=== PATIENT | male | born 1945 | race Caucasian/White ===

== ENCOUNTER 2017-01-31 15:24 | Emergency (ER) | payer MEDICARE ==
[2017-01-31 15:29] VITALS: RESP 18; TEMP 97
[2017-01-31] MEDS ORDERED: SODIUM CHLORIDE 0.9% 1,000 ML IV STA (15:51)
[2017-01-31 16:21] LABS: Basophils % (A) 1 %; CH 31.7; CHCM 32.8; Eosinophils # (A) 0.3 k/uL (0-0.7); Eosinophils % (A) 4 %; HCT 45.9 % (39.0-53.0); HDW 2.11; HGB 14.9 gm/dL (13.0-17.5); Luc # (Auto) 0.18; Luc % (Auto) 2; Lymphocytes # (A) 2.6 k/uL (1.0-4.8); Lymphocytes % (A) 30 %; MCH 31.5 pg (25.0-35.0); MCHC 32.6 g/dL (31.0-37.0); MCV 96.9 fL (80.0-100.0); Mean Platelet Volume 9.5; Monocytes # (A) 0.6 k/uL (0-1.0); Monocytes % (A) 6 %; Neutrophils % (A) 58 %; RBC 4.74 m/uL (4.30-5.90); RDW 13.3 % (11.5-15.5); WBC 8.6 k/uL (3.8-10.6); WBC (Perox) 8.51
--- NOTE | 2017-01-31 16:21 | ED ---
General Adult HPI - General Chief complaint: Eye Problems Stated complaint: blurred vision/groin pain Time Seen by Provider: 01/31/17 15:36 Source: patient Mode of arrival: wheelchair Limitations: no limitations - History of Present Illness Initial comments: This 71-year-old white male presents with a complaint of some lightheadedness and blurry vision. He relates that he has had the blurry vision multiple times previously with unknown cause. He does relate that he's had some cataracts placed previously and this did help his vision. He relates that it occurred this morning. He denies any chest pain or shortness of breath. He denies any abdominal pain, fever, chills. He denies any problems with urination. No recent trauma or head injuries. No other complaints or modifying factors. - Related Data Home Medications Medication Instructions Recorded Confirmed ALPRAZolam 1 mg PO BID 07/19/16 01/31/17 Hydrocodone/Acetaminophen 1 tab PO TID PRN 07/19/16 01/31/17 [Hydrocodon-Acetaminophn 10-325] Omeprazole [PriLOSEC] 20 mg PO BID 07/19/16 01/31/17 Spironolactone 25 mg PO DAILY@199907/19/16 01/31/17 Aspirin EC [Ecotrin Low Dose] 81 mg PO DAILY 01/31/17 01/31/17 Baclofen [Lioresal] 10 mg PO BID 01/31/17 01/31/17 Cholecalciferol [Vitamin D3] 5,000 unit PO DAILY 01/31/17 01/31/17 Nitroglycerin Sl Tabs [Nitrostat] 0.4 mg SUBLINGUAL Q5M PRN 01/31/17 01/31/17 Previous Rx's Medication Instructions Recorded Atorvastatin Calcium [Lipitor] 80 mg PO HS #30 tablet 07/22/16 Losartan [Cozaar] 25 mg PO DAILY #30 tab 07/22/16 Metoprolol Tartrate [Lopressor] 25 mg PO BID #60 tab 07/22/16 Ticagrelor [Brilinta] 90 mg PO BID #60 tablet 07/22/16 Allergies Allergy/AdvReac Type Severity Reaction Status Date / Time No Known Allergies Allergy Verified 01/31/17 16:06 Review of Systems ROS Statement: Those systems with pertinent positive or pertinent negative responses have been documented in the HPI. ROS Other: All systems not noted in ROS Statement are negative. Past Medical History Past Medical History: Coronary Artery Disease (CAD), Chest Pain / Angina, Heart Failure, GERD/Reflux, Hyperlipidemia, Hypertension, Liver Disease, Osteoarthritis (OA), Pneumonia Additional Past Medical History / Comment(s): 04/02/16 UTI WITH SEPSIS, STATES HE SELF CATHS chronic back PAIN ddd, osteoporosis , PT stated he pulls his own teeth. History of Any Multi-Drug Resistant Organisms: None Reported Past Surgical History: Adenoidectomy, Heart Catheterization, Hernia Repair, Tonsillectomy Additional Past Surgical History / Comment(s): COLONOSCOPY,CATARACTS. recent heart cath -has triple vessel disease-no sx as of yet. Past Anesthesia/Blood Transfusion Reactions: No Reported Reaction Past Psychological History: No Psychological Hx Reported Additional Psychological History / Comment(s): . Smoking Status: Current every day smoker Past Alcohol Use History: Daily Additional Past Alcohol Use History / Comment(s): States has not drank much since last admission but will occasionaly when friends are over. Past Drug Use History: None Reported - Past Family History Mother Family Medical History: Myocardial Infarction ([place]) Brother(s) Family Medical History: CVA/TIA Sister(s) Family Medical History: CVA/TIA General Exam - General Exam Comments Initial Comments: GENERAL: The patient is well nourished and well hydrated. VITAL SIGNS: Heart rate, blood pressure, respiratory rate reviewed as recorded in nurse's notes. EYES: Pupils are round and reactive. Extraocular movements are intact. No conjunctival / lid redness or swelling. ENT: No external evidence of injury, swelling, or ecchymosis. Airway is patent. Throat is clear. NECK: Nontender. No swelling or evidence of injury. No subcutaneous emphysema. Trachea is midline. No thyroid mass. HEART: Regular rate and rhythm. Good peripheral pulses. LUNGS/CHEST: Breath sounds clear and equal bilaterally. No rales, rhonchi, or wheezes. No ecchymosis, subcutaneous emphysema, or tenderness. ABDOMEN: Abdomen soft without tenderness. No palpable masses or organomegaly. No peritoneal signs. No abdominal wall swelling or ecchymosis. EXTREMITIES: No extremity tenderness. Normal muscle tone and function. No thoracolumbar tenderness. NEUROLOGIC: Sensation is grossly intact. Cranial nerve exam reveals face is symmetrical, tongue is midline, speech is clear. SKIN: No abrasions or ecchymosis is noted. No induration or masses noted. PSYCHIATRIC: Alert and oriented. Appropriate behavior and judgment. Limitations: no limitations Course Vital Signs 01/31/17 01/31/17 01/31/17 15:27 15:30 15:46 Temperature 97 F L Pulse Rate 38 L 66 68 Respiratory 18 18 18 Rate Blood Pressure 124/80 141/72 O2 Sat by Pulse 100 Oximetry Medical Decision Making - Medical Decision Making The patient was seen and examined. All diagnostics were reviewed. The EKG shows a normal sinus rhythm with frequent PVCs. Heart rate is 77. There is some T-wave inversion noted in the lateral leads. There is no ST elevation identified. An IV is started and patient is mildly hydrated. The computed tomography scan of the brain shows age-related changes and atrophy but no acute process. The laboratory is reviewed and does show some hypomagnesemia as well as some slight hypercalcemia. His magnesium is replaced. Instructed that he may benefit from utilizing a multivitamin daily. Overall, he appears quite stable. It is felt that he is stable for discharge home. He is agreeable with this plan. 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 He understands and leaves in no distress. - Lab Data Result diagrams: 01/31/17 15:50 01/31/17 15:50 Lab Results 01/31/17 01/31/17 01/31/17 Range/Units 15:50 15:50 15:50 WBC 8.6 (3.8-10.6) k/uL RBC 4.74 (4.30-5.90) m/uL Hgb 14.9 (13.0-17.5) gm/dL Hct 45.9 (39.0-53.0) % MCV 96.9 (80.0-100.0) fL MCH 31.5 (25.0-35.0) pg MCHC 32.6 (31.0-37.0) g/dL RDW 13.3 (11.5-15.5) % Plt Count 232 (150-450) k/uL Neutrophils % 58 % Lymphocytes % 30 % Monocytes % 6 % Eosinophils % 4 % Basophils % 1 % Neutrophils # 5.0 (1.3-7.7) k/uL Lymphocytes # 2.6 (1.0-4.8) k/uL Monocytes # 0.6 (0-1.0) k/uL Eosinophils # 0.3 (0-0.7) k/uL Basophils # 0.0 (0-0.2) k/uL PT (9.0-12.0) sec INR (<1.1) APTT (22.0-30.0) sec Sodium 137 (137-145) mmol/L Potassium 4.5 (3.5-5.1) mmol/L Chloride 103 (98-107) mmol/L Carbon Dioxide 22 (22-30) mmol/L Anion Gap 12 mmol/L BUN 15 (9-20) mg/dL Creatinine 1.12 (0.66-1.25) mg/dL Est GFR (MDRD) Af Amer >60 (>60 ml/min/1.73 sqM) Est GFR (MDRD) Non-Af >60 (>60 ml/min/1.73 sqM) Glucose 108 H (74-99) mg/dL Calcium 10.4 H (8.4-10.2) mg/dL Phosphorus 3.8 (2.5-4.5) mg/dL Magnesium 1.3 L (1.6-2.3) mg/dL Total Bilirubin 0.9 (0.2-1.3) mg/dL AST 31 (17-59) U/L ALT 26 (21-72) U/L Alkaline Phosphatase 69 (38-126) U/L Total Creatine Kinase 88 (55-170) U/L CK-MB (CK-2) 0.8 (0.0-2.4) ng/mL CK-MB (CK-2) Rel Index 0.9 Troponin I 0.012 (0.000-0.034) ng/mL Total Protein 8.6 H (6.3-8.2) g/dL Albumin 4.8 (3.5-5.0) g/dL TSH 1.790 (0.465-4.680) mIU/L Urine Color Urine Appearance (Clear) Urine pH (5.0-8.0) Ur Specific [place] (1.001-1.035) Urine Protein (Negative) Urine Glucose (UA) (Negative) Urine Ketones (Negative) Urine Blood (Negative) Urine Nitrite (Negative) Urine Bilirubin (Negative) Urine Urobilinogen (<2.0) mg/dL Ur Leukocyte Esterase (Negative) 01/31/17 01/31/17 Range/Units 16:15 16:30 WBC (3.8-10.6) k/uL RBC (4.30-5.90) m/uL Hgb (13.0-17.5) gm/dL Hct (39.0-53.0) % MCV (80.0-100.0) fL MCH (25.0-35.0) pg MCHC (31.0-37.0) g/dL RDW (11.5-15.5) % Plt Count (150-450) k/uL Neutrophils % % Lymphocytes % % Monocytes % % Eosinophils % % Basophils % % Neutrophils # (1.3-7.7) k/uL Lymphocytes # (1.0-4.8) k/uL Monocytes # (0-1.0) k/uL Eosinophils # (0-0.7) k/uL Basophils # (0-0.2) k/uL PT 11.0 (9.0-12.0) sec INR 1.1 (<1.1) APTT 23.4 (22.0-30.0) sec Sodium (137-145) mmol/L Potassium (3.5-5.1) mmol/L Chloride (98-107) mmol/L Carbon Dioxide (22-30) mmol/L Anion Gap mmol/L BUN (9-20) mg/dL Creatinine (0.66-1.25) mg/dL Est GFR (MDRD) Af Amer (>60 ml/min/1.73 sqM) Est GFR (MDRD) Non-Af (>60 ml/min/1.73 sqM) Glucose (74-99) mg/dL Calcium (8.4-10.2) mg/dL Phosphorus (2.5-4.5) mg/dL Magnesium (1.6-2.3) mg/dL Total Bilirubin (0.2-1.3) mg/dL AST (17-59) U/L ALT (21-72) U/L Alkaline Phosphatase (38-126) U/L Total Creatine Kinase (55-170) U/L CK-MB (CK-2) (0.0-2.4) ng/mL CK-MB (CK-2) Rel Index Troponin I (0.000-0.034) ng/mL Total Protein (6.3-8.2) g/dL Albumin (3.5-5.0) g/dL TSH (0.465-4.680) mIU/L Urine Color Yellow Urine Appearance Clear (Clear) Urine pH 5.5 (5.0-8.0) Ur Specific [place] 1.010 (1.001-1.035) Urine Protein Negative (Negative) Urine Glucose (UA) Negative (Negative) Urine Ketones Negative (Negative) Urine Blood Negative (Negative) Urine Nitrite Negative (Negative) Urine Bilirubin Negative (Negative) Urine Urobilinogen <2.0 (<2.0) mg/dL Ur Leukocyte Esterase Negative (Negative) Disposition Clinical Impression: Blurry vision, bilateral, Lightheadedness, Frequent PVCs, Hypertension, Hypomagnesemia, Hypercalcemia Disposition: HOME SELF-CARE Condition: Good Instructions: Lightheadedness (ED), Hypertension (ED), Hypomagnesemia (ED), Hypercalcemia (ED) Referrals: Carlitos Pandey MD [Primary Care Provider] - 1-2 days Time of Disposition: 17:11
[2017-01-31 16:23] LABS: ALT 26 U/L (21-72); AST 31 U/L (17-59); Alkaline Phosphatase 69 U/L (38-126); Anion Gap 12 mmol/L; Blood Urea Nitrogen 15 mg/dL (9-20); Calcium 10.4 mg/dL (8.4-10.2); Carbon Dioxide 22 mmol/L (22-30); Chloride 103 mmol/L (98-107); Glucose 108 mg/dL (74-99); Magnesium 1.3 mg/dL (1.6-2.3); Non-African American GFR(MDRD) >60 (>60 ml/min/1.73 sqM); Phosphorous 3.8 mg/dL (2.5-4.5); Potassium 4.5 mmol/L (3.5-5.1); Sodium 137 mmol/L (137-145); Total Bilirubin 0.9 mg/dL (0.2-1.3); Total Protein 8.6 g/dL (6.3-8.2)
[2017-01-31 16:26] LABS: Appearance,Urine Clear (Clear); Bilirubin,Urine Negative (Negative); Glucose,Urine (UA) Negative (Negative); Ketones,Urine Negative (Negative); Leukocyte Esterase,Urine Negative (Negative); Nitrite,Urine Negative (Negative); PH, Urine 5.5 (5.0-8.0); Protein,Urine Negative (Negative); UA Billing (MACRO vs. MICRO) CHEM; Urobilinogen,Urine <2.0 mg/dL (<2.0)
--- NOTE | 2017-01-31 16:34 | CT ---
EXAMINATION TYPE: CT brain wo con DATE OF EXAM: 01/31/2017 4:26 PM HISTORY: Patient complains of dizziness and blurry vision. CT DLP: 830.1 mGycm. Automated Exposure Control for Dose Reduction was Utilized. TECHNIQUE: CT scan of the head is performed without contrast. COMPARISON: CT brain April 02, 2016.. FINDINGS: There is no acute intracranial hemorrhage or midline shift identified. There is diffuse v entricular and sulcal prominence consistent with diffuse age-related cerebral atrophy. There is low- attenuation in the periventricular white matter consistent with chronic small vessel ischemic change. Old fracture deformity medial wall left orbit is felt redemonstrated. Visualized globes are grossly intact. Visualized paranasal sinuses show mild to moderate mucosal thickening involving ethmoid sinus es bilaterally slightly more prominent than prior exam. Mild mucosal thickening involving anterior sp henoid sinuses bilaterally is present. IMPRESSION: No acute intracranial hemorrhage or midline shift. There is moderate to severe diffuse age-related cerebral atrophy and chronic small vessel ischemic change redemonstrated. No significant change from prior study is seen.
[2017-01-31 16:35] LABS: Creatine Kinase MB 0.8 ng/mL (0.0-2.4); Troponin I 0.012 ng/mL (0.000-0.034)
[2017-01-31 16:53] LABS: INR 1.1 (<1.1); Partial Thromboplastin Time 23.4 sec (22.0-30.0)
[2017-01-31] MEDS: MAGNESIUM SULFATE-D5W PMX 1 GM in DEXTROSE/WATER 1 100ML.BAG IVPB SCH ×2 (17:19→18:28)
[2017-01-31 19:35] VITALS: BP 111/78; PULSE 52
== END 2017-01-31 19:30 | disposition home or self-care (01) ==
LOC: EC 15:24
DX: H53.8 Other visual disturbances (principal); R42 Dizziness and giddiness; I49.3 Ventricular premature depolarization; E83.42 Hypomagnesemia; E83.52 Hypercalcemia; I11.0 Hypertensive heart disease with heart failure; I50.9 Heart failure, unspecified; I25.10 Atherosclerotic heart disease of native coronary artery without angina pectoris; K21.9 Gastro-esophageal reflux disease without esophagitis; E78.5 Hyperlipidemia, unspecified; F17.200 Nicotine dependence, unspecified, uncomplicated; Z95.5 Presence of coronary angioplasty implant and graft; Z79.82 Long term (current) use of aspirin; Z79.899 Other long term (current) drug therapy
CPT/HCPCS: 99284; 96365; 96366; 96361; 36415; 93005; 80053; 82550; 82553; 83735; 84100; 84443; 84484; 85025; 85610; 85730; 81003; 70450; J3475

== ENCOUNTER 2017-02-16 16:07 | Emergency (ER) | payer MEDICARE ==
[~2017-02-16 16:07] MED LIST: OXYMETAZOLINE 0.05% NASL SPRAY 15 ML ONE
[2017-02-16 16:12] VITALS: RESP 20
[2017-02-16] MEDS ORDERED: OXYMETAZOLINE 0.05% NASL SPRAY 15 ML NASAL STA (17:05)
--- NOTE | 2017-02-16 17:26 | ED ---
ENT HPI - General Chief complaint: ENT Stated complaint: NOSEBLEED Time Seen by Provider: 02/16/17 16:59 Source: patient, RN notes reviewed Mode of arrival: wheelchair Limitations: no limitations - History of Present Illness Initial comments: 71-year-old male presents to the emergency department with a chief complaint of epistaxis. Patient states this started today. Patient states that he is on Ventolin syrup. Patient states after he blew his nose started. Patient denies any history of this in the past. Patient denies any falls or injury. Patient states that his current concern because it continued to bleed so he thought that he should be seen.Patient denies any recent fever, chills, shortness of breath, chest pain, back pain, abdominal pain, nausea vomiting, numbness or tingling, dysuria or hematuria, constipation or diarrhea, headaches or visual changes, or any other current symptoms. - Related Data Home Medications Medication Instructions Recorded Confirmed ALPRAZolam 1 mg PO BID 07/19/16 02/16/17 Omeprazole [PriLOSEC] 20 mg PO BID 07/19/16 02/16/17 Spironolactone 25 mg PO DAILY@199907/19/16 02/16/17 Aspirin EC [Ecotrin Low Dose] 81 mg PO DAILY 01/31/17 02/16/17 Baclofen [Lioresal] 10 mg PO BID 01/31/17 02/16/17 Nitroglycerin Sl Tabs [Nitrostat] 0.4 mg SUBLINGUAL Q5M PRN 01/31/17 02/16/17 Multivitamins, Thera [Multivitamin 1 tab PO DAILY 02/16/17 02/16/17 (formulary)] Previous Rx's Medication Instructions Recorded Atorvastatin Calcium [Lipitor] 80 mg PO HS #30 tablet 07/22/16 Losartan [Cozaar] 25 mg PO DAILY #30 tab 07/22/16 Metoprolol Tartrate [Lopressor] 25 mg PO BID #60 tab 07/22/16 Ticagrelor [Brilinta] 90 mg PO BID #60 tablet 07/22/16 Allergies Allergy/AdvReac Type Severity Reaction Status Date / Time No Known Allergies Allergy Verified 02/16/17 17:13 Review of Systems ROS Statement: Those systems with pertinent positive or pertinent negative responses have been documented in the HPI. ROS Other: All systems not noted in ROS Statement are negative. Past Medical History Past Medical History: Coronary Artery Disease (CAD), Chest Pain / Angina, Heart Failure, GERD/Reflux, Hyperlipidemia, Hypertension, Liver Disease, Myocardial Infarction ([place]), Osteoarthritis (OA), Pneumonia Additional Past Medical History / Comment(s): 04/02/16 UTI WITH SEPSIS, STATES HE SELF CATHS chronic back PAIN ddd, osteoporosis , PT stated he pulls his own teeth. History of Any Multi-Drug Resistant Organisms: None Reported Past Surgical History: Adenoidectomy, Heart Catheterization, Hernia Repair, Tonsillectomy Additional Past Surgical History / Comment(s): COLONOSCOPY,CATARACTS. recent heart cath -has triple vessel disease-no sx as of yet. Past Anesthesia/Blood Transfusion Reactions: No Reported Reaction Past Psychological History: No Psychological Hx Reported Additional Psychological History / Comment(s): . Smoking Status: Current every day smoker Past Alcohol Use History: Daily Additional Past Alcohol Use History / Comment(s): States has not drank much since last admission but will occasionaly when friends are over. Past Drug Use History: None Reported - Past Family History Mother Family Medical History: Myocardial Infarction ([place]) Brother(s) Family Medical History: CVA/TIA Sister(s) Family Medical History: CVA/TIA General Exam Limitations: no limitations General appearance: alert, in no apparent distress Head exam: Present: atraumatic, normocephalic, normal inspection Eye exam: Present: normal appearance ENT exam: Present: other (Epistaxis noted from left naris excessive backsplash tenderness) Neck exam: Present: normal inspection. Absent: tenderness, meningismus, lymphadenopathy Respiratory exam: Present: normal lung sounds bilaterally. Absent: respiratory distress, wheezes, rales, rhonchi, stridor Cardiovascular Exam: Present: regular rate, normal rhythm, normal heart sounds. Absent: systolic murmur, diastolic murmur, rubs, gallop, clicks Neurological exam: Present: alert, oriented X3 Psychiatric exam: Present: normal affect, normal mood Skin exam: Present: warm, dry, intact, normal color. Absent: rash Course Vital Signs 02/16/17 16:09 Temperature 98.5 F Pulse Rate 94 Respiratory 20 Rate Blood Pressure 115/66 O2 Sat by Pulse 97 Oximetry Medical Decision Making - Medical Decision Making 71-year-old male presents emergency 5 chief complaint epistaxis. This time patient had Afrin and nasal clip placed. This time patient's epistaxis has resolved with this intervention. This time we discussed retirement. We discussed return parameters and follow-up. We discussed all patient's questions. He stated he understood and irrigated plan. They will be just discharged home. Disposition Clinical Impression: Anterior epistaxis Disposition: HOME SELF-CARE Condition: Stable Instructions: Nosebleed (ED) Additional Instructions: Please use medication as discussed. Please follow up with family doctor if symptoms have not improved over the next two days. Please return to the emergency room if your symptoms increase or worsen or for any other concerns. Referrals: Carlitos Pandey MD [Primary Care Provider] - 1-2 days Time of Disposition: 18:11
[2017-02-16 18:19] VITALS: BP 106/56; PULSE 82; TEMP 98.2
== END 2017-02-16 18:20 | disposition home or self-care (01) ==
LOC: EC 16:07
DX: R04.0 Epistaxis (principal); I50.9 Heart failure, unspecified; K21.9 Gastro-esophageal reflux disease without esophagitis; I10 Essential (primary) hypertension; M19.90 Unspecified osteoarthritis, unspecified site; F17.200 Nicotine dependence, unspecified, uncomplicated; Z79.82 Long term (current) use of aspirin; Z79.899 Other long term (current) drug therapy; Z95.818 Presence of other cardiac implants and grafts
CPT/HCPCS: 99283

== ENCOUNTER 2019-08-07 22:59 | Emergency (ER) | payer MEDICARE ==
[2019-08-07 23:06] VITALS: BP 110/69; PULSE 60; RESP 18; TEMP 96.3
--- NOTE | 2019-08-07 23:29 | ED ---
General Adult HPI - General Chief complaint: Urogenital Stated complaint: painful urination Time Seen by Provider: 08/07/19 23:11 Source: patient Mode of arrival: ambulatory Limitations: no limitations - History of Present Illness Initial comments: Patient is a 73-year-old male presenting to the emergency department with a chief complaint of burning with urination. Patient reports he developed dysuria several days ago. Patient reports that he self caths whenever he is unable to urinate. Patient reports he does have hesitancy when urinating. Patient reports that he is able to urinate in a sitting position but not in a standing position. Patient is unaware of his last prostate exam. Patient reports that his primary care most likely checked his PSA level but he is unaware of it. Patient denies any night sweats, fevers or chills. Patient denies any abdominal or back pain. Patient denies any bowel symptoms. Patient has hematuria, hemato chezia or melena. - Related Data Home Medications Medication Instructions Recorded Confirmed ALPRAZolam 1 mg PO BID 07/19/16 02/16/17 Omeprazole [PriLOSEC] 20 mg PO BID 07/19/16 02/16/17 Spironolactone 25 mg PO DAILY@199907/19/16 02/16/17 Aspirin EC [Ecotrin Low Dose] 81 mg PO DAILY 01/31/17 02/16/17 Baclofen [Lioresal] 10 mg PO BID 01/31/17 02/16/17 Nitroglycerin Sl Tabs [Nitrostat] 0.4 mg SUBLINGUAL Q5M PRN 01/31/17 02/16/17 Multivitamins, Thera [Multivitamin 1 tab PO DAILY 02/16/17 02/16/17 (formulary)] Previous Rx's Medication Instructions Recorded Atorvastatin Calcium [Lipitor] 80 mg PO HS #30 tablet 07/22/16 Losartan [Cozaar] 25 mg PO DAILY #30 tab 07/22/16 Metoprolol Tartrate [Lopressor] 25 mg PO BID #60 tab 07/22/16 Ticagrelor [Brilinta] 90 mg PO BID #60 tablet 07/22/16 Sulfamethox-Tmp 800-160Mg [Bactrim 1 each PO Q12HR #56 tab 08/08/19 Ds] Allergies Allergy/AdvReac Type Severity Reaction Status Date / Time No Known Allergies Allergy Verified 08/07/19 23:00 Review of Systems ROS Statement: Those systems with pertinent positive or pertinent negative responses have been documented in the HPI. ROS Other: All systems not noted in ROS Statement are negative. Past Medical History Past Medical History: Coronary Artery Disease (CAD), Chest Pain / Angina, Heart Failure, GERD/Reflux, Hyperlipidemia, Hypertension, Liver Disease, Myocardial Infarction ([place]), Osteoarthritis (OA), Pneumonia Additional Past Medical History / Comment(s): 04/02/16 UTI WITH SEPSIS, STATES HE SELF CATHS chronic back PAIN ddd, osteoporosis , PT stated he pulls his own teeth. History of Any Multi-Drug Resistant Organisms: None Reported Past Surgical History: Adenoidectomy, Heart Catheterization, Hernia Repair, Tonsillectomy Additional Past Surgical History / Comment(s): COLONOSCOPY,CATARACTS. recent heart cath -has triple vessel disease-no sx as of yet. Past Anesthesia/Blood Transfusion Reactions: No Reported Reaction Past Psychological History: No Psychological Hx Reported Smoking Status: Current every day smoker Past Alcohol Use History: Daily Past Drug Use History: None Reported - Past Family History Mother Family Medical History: Myocardial Infarction ([place]) Brother(s) Family Medical History: CVA/TIA Sister(s) Family Medical History: CVA/TIA General Exam Limitations: no limitations General appearance: alert, in no apparent distress Head exam: Present: atraumatic, normocephalic, normal inspection Eye exam: Present: normal appearance Pupils: Present: normal accommodation ENT exam: Present: normal exam, mucous membranes moist, normal external ear exam Neck exam: Present: normal inspection, full ROM Respiratory exam: Present: normal lung sounds bilaterally Cardiovascular Exam: Present: regular rate, normal rhythm, normal heart sounds GI/Abdominal exam: Present: soft. Absent: tenderness, guarding, rebound, rigid Rectal exam: Present: normal rectal tone, hemorrhoids (External hemorrhoid), prostate tenderness (Mild tenderness) exam: Present: normal inspection, urethral discharge. Absent: testicular tenderness, scrotal swelling, vertical testicular lie, circumcision Extremities exam: Present: normal inspection, full ROM Back exam: Present: normal inspection, full ROM. Absent: CVA tenderness (R), CVA tenderness (L) Neurological exam: Present: alert, oriented X3 Psychiatric exam: Present: normal affect, normal mood Skin exam: Present: warm, intact, normal color Course Vital Signs 08/07/19 23:00 Temperature 96.3 F L Pulse Rate 60 Respiratory 18 Rate Blood Pressure 110/69 O2 Sat by Pulse 93 L Oximetry Medical Decision Making - Medical Decision Making Patient is 73-year-old male presenting to emergency Department with a chief complaint of dysuria. Apparently the patient has been self cathing intermittently whenever he has obstructive urinary symptoms. Patient reports these with urination in sitting position that seems to be elevated a standing position. Patient was given a catheter and he attempted to cath himself however it appears the catheter was too large. Palomares catheter was inserted. There appears to be some gross hematuria which is most likely a result of the failed cathing attempt or the larger catheter. UA is indicative of elevated red blood cells and white blood cells with leukocyte esterase. Prostate exam was performed the patient appears to have very mild tenderness with palpation of the prostate. Patient also appears to have an external hemorrhoid. Patient will be treated for UTI and possible prostatitis. Palomares will be in place until patient sees a urologist. Patient advised to see a urologist. Patient given a single dose of Rocephin, fluids in 30 days of Bactrim. Strict return parameters were thoroughly discussed with patient was worsening and agreeable. Case discussed physician. - Lab Data Lab Results 08/08/19 Range/Units 00:02 Urine Color Light Red Urine Appearance Cloudy (Clear) Urine pH 6.0 (5.0-8.0) Ur Specific [place] 1.013 (1.001-1.035) Urine Protein 1+ H (Negative) Urine Glucose (UA) Negative (Negative) Urine Ketones Negative (Negative) Urine Blood Moderate H (Negative) Urine Nitrite Negative (Negative) Urine Bilirubin Negative (Negative) Urine Urobilinogen <2.0 (<2.0) mg/dL Ur Leukocyte Esterase Large H (Negative) Urine RBC >182 H (0-5) /hpf Urine WBC >182 H (0-5) /hpf Disposition Clinical Impression: Urinary tract infection in male, Prostatitis Disposition: HOME SELF-CARE Condition: Stable Additional Instructions: Please take prescribed medication as directed. Please follow up with urology. Please return to emergency department if symptoms worsen. Prescriptions: Sulfamethox-Tmp 800-160Mg [Bactrim Ds] 1 each PO Q12HR #56 tab Is patient prescribed a controlled substance at d/c from ED?: No Referrals: Carlitos Pandey MD [Primary Care Provider] - 1-2 days Donald Ledezma MD [STAFF PHYSICIAN] - 1-2 days Time of Disposition: 00:42
[2019-08-08 00:29] LABS: Appearance,Urine Cloudy (Clear); Bilirubin,Urine Negative (Negative); Blood,Urine Moderate (Negative); Color,Urine Light Red; Glucose,Urine (UA) Negative (Negative); Ketones,Urine Negative (Negative); Leukocyte Esterase,Urine Large (Negative); Nitrite,Urine Negative (Negative); Protein,Urine 1+ (Negative); RBC,Urine >182 /hpf (0-5); Specific Gravity,Urine 1.013 (1.001-1.035); Urobilinogen,Urine <2.0 mg/dL (<2.0)
[2019-08-08] MEDS ORDERED: cefTRIAXone 1,000 MG VIAL (IM USE) IM STA (00:41)
== END 2019-08-08 01:16 | disposition home or self-care (01) ==
LOC: EC 22:59
DX: N41.9 Inflammatory disease of prostate, unspecified (principal); N39.0 Urinary tract infection, site not specified; K64.4 Residual hemorrhoidal skin tags; R36.9 Urethral discharge, unspecified; K21.9 Gastro-esophageal reflux disease without esophagitis; I25.119 Atherosclerotic heart disease of native coronary artery with unspecified angina pectoris; I11.0 Hypertensive heart disease with heart failure; I50.9 Heart failure, unspecified; E78.5 Hyperlipidemia, unspecified; I25.2 Old myocardial infarction; M19.90 Unspecified osteoarthritis, unspecified site; M81.0 Age-related osteoporosis without current pathological fracture; Z79.82 Long term (current) use of aspirin; Z79.899 Other long term (current) drug therapy; Z95.5 Presence of coronary angioplasty implant and graft
CPT/HCPCS: 81001; 87086; 96372; 99283; 51702; J0696

== ENCOUNTER 2019-10-30 16:02 | Inpatient (IN) | payer MEDICARE ==
[2019-10-30] MEDS ORDERED: methylPREDNISolone SOD SUCCI 125 MG/2 ML VIAL IV STA (16:40)
[2019-10-30] MEDS ORDERED: SODIUM CHLORIDE 0.9% 500 ML 500 ML IV STA (16:40)
[2019-10-30] MEDS ORDERED: ALBUTEROL NEBULIZED 2.5 MG/3 ML INHALATION STA (16:40)
[2019-10-30] MEDS ORDERED: IPRATROPIUM 0.5 MG/2.5 ML NEBU INHALATION STA (16:40)
--- NOTE | 2019-10-30 17:09 | ED ---
General Adult HPI - General Stated complaint: near syncope Time Seen by Provider: 10/30/19 16:05 Source: patient, RN notes reviewed, old records reviewed Mode of arrival: ambulatory Limitations: no limitations - History of Present Illness Initial comments: 74-year-old male presenting for evaluation of cough, dyspnea, abdominal pain. Patient's has multiple complaints he states he's had a mildly productive cough for several weeks. No fevers. He associates some left-sided chest pain with his cough. He is a current smoker and has a history of COPD. Patient also complains of some abdominal pain and bloating which is been present for several weeks also. He's had no vomiting. No diarrhea. He complains of dysuria. He also complains of multiple bites and states he does have bedbugs at home. Patient denying any chest pain at the time my evaluation. Stating that the c hest pain was approximately one week ago. - Related Data Home Medications Medication Instructions Recorded Confirmed ALPRAZolam 1 mg PO BID 07/19/16 02/16/17 Omeprazole [PriLOSEC] 20 mg PO BID 07/19/16 02/16/17 Spironolactone 25 mg PO DAILY@199907/19/16 02/16/17 Aspirin EC [Ecotrin Low Dose] 81 mg PO DAILY 01/31/17 02/16/17 Baclofen [Lioresal] 10 mg PO BID 01/31/17 02/16/17 Nitroglycerin Sl Tabs [Nitrostat] 0.4 mg SUBLINGUAL Q5M PRN 01/31/17 02/16/17 Multivitamins, Thera [Multivitamin 1 tab PO DAILY 02/16/17 02/16/17 (formulary)] Previous Rx's Medication Instructions Recorded Atorvastatin Calcium [Lipitor] 80 mg PO HS #30 tablet 07/22/16 Losartan [Cozaar] 25 mg PO DAILY #30 tab 07/22/16 Metoprolol Tartrate [Lopressor] 25 mg PO BID #60 tab 07/22/16 Ticagrelor [Brilinta] 90 mg PO BID #60 tablet 07/22/16 Sulfamethox-Tmp 800-160Mg [Bactrim 1 each PO Q12HR #56 tab 08/08/19 Ds] Allergies Allergy/AdvReac Type Severity Reaction Status Date / Time No Known Allergies Allergy Verified 08/07/19 23:00 Review of Systems ROS Statement: Those systems with pertinent positive or pertinent negative responses have been documented in the HPI. ROS Other: All systems not noted in ROS Statement are negative. Past Medical History Past Medical History: Coronary Artery Disease (CAD), Chest Pain / Angina, Heart Failure, GERD/Reflux, Hyperlipidemia, Hypertension, Liver Disease, Myocardial Infarction (CT), Osteoarthritis (OA), Pneumonia Additional Past Medical History / Comment(s): 04/02/16 UTI WITH SEPSIS, STATES HE SELF CATHS chronic back PAIN ddd, osteoporosis , PT stated he pulls his own teeth. History of Any Multi-Drug Resistant Organisms: None Reported Past Surgical History: Adenoidectomy, Heart Catheterization, Hernia Repair, Tonsillectomy Additional Past Surgical History / Comment(s): COLONOSCOPY,CATARACTS. recent heart cath -has triple vessel disease-no sx as of yet. Past Anesthesia/Blood Transfusion Reactions: No Reported Reaction Past Psychological History: No Psychological Hx Reported Smoking Status: Current every day smoker Past Alcohol Use History: None Reported, Daily Past Drug Use History: None Reported - Past Family History Mother Family Medical History: Myocardial Infarction (CT) Brother(s) Family Medical History: CVA/TIA Sister(s) Family Medical History: CVA/TIA General Exam Limitations: no limitations General appearance: alert, in no apparent distress Head exam: Present: atraumatic, normocephalic Eye exam: Present: normal appearance, PERRL ENT exam: Present: normal exam, mucous membranes moist Neck exam: Present: normal inspection. Absent: tenderness Respiratory exam: Present: wheezes, rhonchi, decreased breath sounds. Absent: respiratory distress Cardiovascular Exam: Present: regular rate, normal rhythm GI/Abdominal exam: Present: soft. Absent: distended, tenderness, guarding Extremities exam: Present: normal inspection, normal capillary refill. Absent: pedal edema Neurological exam: Present: alert, oriented X3, CN II-XII intact. Absent: motor sensory deficit Psychiatric exam: Present: normal affect, normal mood Skin exam: Present: warm, dry Course Vital Signs 10/30/19 16:46 Pulse Rate 89 Respiratory 18 Rate Blood Pressure 137/89 O2 Sat by Pulse 95 Oximetry EKG Findings - EKG Comments: EKG Findings:: EKG: Sinus rhythm with PVC left axis deviation, no ST segment elevation, rate of 79, MA interval 200, QRS duration 116, QTC 444 Medical Decision Making - Medical Decision Making 74-year-old male presenting with cough, dyspnea, abdominal pain, and episode of chest pain from one week ago. Workup is initiated, patient has EKG showing sinus rhythm with no ST segment elevation. He has normal white blood cell count, hemoglobin 12.4. He has x-ray which is negative for any acute intra- abdominal pathology, chest x-ray showing increased cardiomegaly. Echo will be obtained. He has an increased BUN and creatinine with creatinine 2.1 from baseline of 1.2. He has a lactic acid of 3.2. He does admit to poor oral intake over the past several days. He has a magnesium 1.2 which is replaced. He has a troponin elevation is 0.071 with no active ongoing chest pain. Patient's is heparinized awaiting serial troponins and cardiology consultation. Will be given continuous IV hydration for acute kidney injury. His mag is replaced. Case is discussed with Dr. Huerta will accept admission. - Lab Data Result diagrams: 10/30/19 17:02 10/30/19 17:02 Lab Results 10/30/19 10/30/19 10/30/19 Range/Units 17:02 17:02 17:02 WBC 8.0 (3.8-10.6) k/uL RBC 4.11 L (4.30-5.90) m/uL Hgb 12.4 L (13.0-17.5) gm/dL Hct 38.3 L (39.0-53.0) % MCV 93.1 (80.0-100.0) fL MCH 30.1 (25.0-35.0) pg MCHC 32.3 (31.0-37.0) g/dL RDW 13.0 (11.5-15.5) % Plt Count 297 (150-450) k/uL Neutrophils % 67 % Lymphocytes % 23 % Monocytes % 4 % Eosinophils % 3 % Basophils % 1 % Neutrophils # 5.4 (1.3-7.7) k/uL Lymphocytes # 1.9 (1.0-4.8) k/uL Monocytes # 0.3 (0-1.0) k/uL Eosinophils # 0.2 (0-0.7) k/uL Basophils # 0.1 (0-0.2) k/uL Hypochromasia Slight PT (9.0-12.0) sec INR (<1.2) APTT (22.0-30.0) sec Sodium 142 (137-145) mmol/L Potassium 4.6 (3.5-5.1) mmol/L Chloride 109 H (98-107) mmol/L Carbon Dioxide 19 L (22-30) mmol/L Anion Gap 14 mmol/L BUN 34 H (9-20) mg/dL Creatinine 2.11 H (0.66-1.25) mg/dL Est GFR (CKD-EPI)AfAm 34 (>60 ml/min/1.73 sqM) Est GFR (CKD-EPI)NonAf 30 (>60 ml/min/1.73 sqM) Glucose 130 H (74-99) mg/dL Plasma Lactic Acid Alexey 3.2 H* (0.7-2.0) mmol/L Calcium 9.4 (8.4-10.2) mg/dL Magnesium 1.2 L (1.6-2.3) mg/dL Total Bilirubin 0.9 (0.2-1.3) mg/dL AST 33 (17-59) U/L ALT 18 (4-49) U/L Alkaline Phosphatase 99 (38-126) U/L Troponin I (0.000-0.034) ng/mL Total Protein 8.2 (6.3-8.2) g/dL Albumin 4.4 (3.5-5.0) g/dL 10/30/19 10/30/19 Range/Units 17:02 17:02 WBC (3.8-10.6) k/uL RBC (4.30-5.90) m/uL Hgb (13.0-17.5) gm/dL Hct (39.0-53.0) % MCV (80.0-100.0) fL MCH (25.0-35.0) pg MCHC (31.0-37.0) g/dL RDW (11.5-15.5) % Plt Count (150-450) k/uL Neutrophils % % Lymphocytes % % Monocytes % % Eosinophils % % Basophils % % Neutrophils # (1.3-7.7) k/uL Lymphocytes # (1.0-4.8) k/uL Monocytes # (0-1.0) k/uL Eosinophils # (0-0.7) k/uL Basophils # (0-0.2) k/uL Hypochromasia PT 12.1 H (9.0-12.0) sec INR 1.2 H (<1.2) APTT 23.2 (22.0-30.0) sec Sodium (137-145) mmol/L Potassium (3.5-5.1) mmol/L Chloride (98-107) mmol/L Carbon Dioxide (22-30) mmol/L Anion Gap mmol/L BUN (9-20) mg/dL Creatinine (0.66-1.25) mg/dL Est GFR (CKD-EPI)AfAm (>60 ml/min/1.73 sqM) Est GFR (CKD-EPI)NonAf (>60 ml/min/1.73 sqM) Glucose (74-99) mg/dL Plasma Lactic Acid Alexey (0.7-2.0) mmol/L Calcium (8.4-10.2) mg/dL Magnesium (1.6-2.3) mg/dL Total Bilirubin (0.2-1.3) mg/dL AST (17-59) U/L ALT (4-49) U/L Alkaline Phosphatase (38-126) U/L Troponin I 0.071 H* (0.000-0.034) ng/mL Total Protein (6.3-8.2) g/dL Albumin (3.5-5.0) g/dL Disposition Clinical Impression: Chest pain, Ischemic cardiomyopathy, [place] (acute kidney injury), Hypomagnesemia Disposition: ADMITTED IP TO THIS HOSP Condition: Stable Is patient prescribed a controlled substance at d/c from ED?: No Referrals: Carlitos Pandey MD [Primary Care Provider] - 1-2 days Decision to Admit Reason: Admit from EC Decision Date: 10/30/19 Decision Time: 19:05
[2019-10-30 17:14] LABS: Basophils # (A) 0.1 k/uL (0-0.2); Basophils % (A) 1 %; Eosinophils # (A) 0.2 k/uL (0-0.7); Eosinophils % (A) 3 %; HCT 38.3 % (39.0-53.0); HGB 12.4 gm/dL (13.0-17.5); Hypochromasia Slight; Lymphocytes # (A) 1.9 k/uL (1.0-4.8); Lymphocytes % (A) 23 %; MCH 30.1 pg (25.0-35.0); MCHC 32.3 g/dL (31.0-37.0); MCV 93.1 fL (80.0-100.0); Mean Platelet Volume 8.6; Monocytes # (A) 0.3 k/uL (0-1.0); Monocytes % (A) 4 %; Neutrophils # (A) 5.4 k/uL (1.3-7.7); Neutrophils % (A) 67 %; Platelet Count 297 k/uL (150-450); RBC 4.11 m/uL (4.30-5.90)
[2019-10-30 17:24] LABS: Albumin 4.4 g/dL (3.5-5.0); Calcium 9.4 mg/dL (8.4-10.2); Magnesium 1.2 mg/dL (1.6-2.3); Potassium 4.6 mmol/L (3.5-5.1); Total Bilirubin 0.9 mg/dL (0.2-1.3); Total Protein 8.2 g/dL (6.3-8.2)
[2019-10-30] MEDS ORDERED: SODIUM CHLORIDE 0.9% 500 ML 500 ML IV ONE (17:27)
[2019-10-30 17:52] LABS: INR 1.2 (<1.2); Partial Thromboplastin Time 23.2 sec (22.0-30.0); Prothrombin Time 12.1 sec (9.0-12.0)
[2019-10-30] MEDS ORDERED: ASPIRIN 325 MG TAB PO STA (17:52)
--- NOTE | 2019-10-30 17:53 | XR ---
EXAMINATION TYPE: XR KUB DATE OF EXAM: 10/30/2019 COMPARISON: 06/20/2015 HISTORY: Weakness TECHNIQUE: 2 views upright FINDINGS: There is no sign of intestinal obstruction or pneumoperitoneum. Fecal pattern is normal. He art is enlarged. There are no pathologic calcifications over the kidneys. IMPRESSION: Nonacute abdomen. Cardiomegaly. Heart appears increased compared to old exam.
--- NOTE | 2019-10-30 17:55 | XR ---
EXAMINATION TYPE: XR chest 2V DATE OF EXAM: 10/30/2019 COMPARISON: 07/19/2016 HISTORY: Difficulty breathing TECHNIQUE: FINDINGS: Heart is borderline enlarged. There is no heart failure. Costophrenic angles are clear. Tho racic aorta is atheromatous. There is slight blunting of the posterior costophrenic angles. IMPRESSION: Minimal pleural reaction or fluid at the lung bases. Heart appears increased compared to old exam. There is no obvious heart failure.
[2019-10-30] MEDS ORDERED: HEPARIN SODIUM,PORCINE 5,000 UNIT/ML 1 ML VIAL IV ONE (18:53)
[2019-10-30] MEDS ORDERED: HEPARIN SODIUM,PORCINE 5,000 UNIT/ML 1 ML VIAL IV PRN (18:53)
[2019-10-30] MEDS ORDERED: NALOXONE 0.4 MG/ML 1 ML VIAL IV PRN (18:55)
[2019-10-30] MEDS: MAGNESIUM SULFATE-D5W PMX 1 GM in DEXTROSE/WATER 1 100ML.BAG IVPB SCH ×2 (19:21→20:04)
[2019-10-30 20:00] LABS: Appearance,Urine Clear (Clear); Bilirubin,Urine Negative (Negative); Blood,Urine Negative (Negative); Color,Urine Yellow; Glucose,Urine (UA) Negative (Negative); Hyaline Casts,Urine 13 /lpf (0-2); Ketones,Urine 1+ (Negative); Leukocyte Esterase,Urine Moderate (Negative); Nitrite,Urine Negative (Negative); PH, Urine 5.5 (5.0-8.0); Protein,Urine Trace (Negative); RBC,Urine 1 /hpf (0-5); Urobilinogen,Urine <2.0 mg/dL (<2.0); WBC,Urine 24 /hpf (0-5)
[2019-10-30] MEDS: HEPARIN SOD,PORK IN 0.45% NACL 25,000 UNIT in 0.45% NACL 1 250ML.BAG IV SCH (20:05)
[2019-10-30] MEDS: SODIUM CHLORIDE 0.9% 1,000 ML IV SCH (20:07)
[2019-10-30] MEDS ORDERED: NITROGLYCERIN SL TABS 0.4 MG TAB SUBLINGUAL PRN (21:16)
[2019-10-30] MEDS ORDERED: BACLOFEN 10 MG TAB PO PRN (22:00)
[2019-10-30] MEDS: ALPRAZolam 1 MG TAB PO SCH (22:35)
[2019-10-31] MEDS ORDERED: LOSARTAN 25 MG TAB PO SCH (05:30)
[2019-10-31] MEDS ORDERED: SPIRONOLACTONE 25 MG TAB PO SCH (05:30)
[2019-10-31 07:00] LABS: Basophils % (A) 0 %; Eosinophils % (A) 0 %; HCT 35.3 % (39.0-53.0); HGB 11.2 gm/dL (13.0-17.5); Hypochromasia Slight; Lymphocytes # (A) 0.8 k/uL (1.0-4.8); Lymphocytes % (A) 19 %; MCH 29.6 pg (25.0-35.0); MCHC 31.7 g/dL (31.0-37.0); MCV 93.3 fL (80.0-100.0); Mean Platelet Volume 8.7; Monocytes % (A) 1 %; Neutrophils # (A) 3.1 k/uL (1.3-7.7); Neutrophils % (A) 79 %; Platelet Count 263 k/uL (150-450); RBC 3.79 m/uL (4.30-5.90); RDW 13.2 % (11.5-15.5)
[2019-10-31] MEDS: SODIUM CHLORIDE 0.9% 1,000 ML IV SCH (07:08)
[2019-10-31] MEDS: METOPROLOL TARTRATE 25 MG TAB PO SCH ×2 (07:09→17:29)
[2019-10-31] MEDS: ASPIRIN 81 MG PO SCH ×2 (07:09→17:29)
[2019-10-31] MEDS: TICAGRELOR 90 MG TAB PO SCH ×2 (07:10→17:29)
[2019-10-31] MEDS: MULTIVITAMINS, THERA 1 EACH TAB PO SCH (07:10)
[2019-10-31] MEDS: LORATADINE 10 MG TAB PO SCH (07:11)
[2019-10-31] MEDS: PANTOPRAZOLE 40 MG TABLET PO SCH ×2 (07:11→17:30)
[2019-10-31] MEDS: ALPRAZolam 1 MG TAB PO SCH (07:14)
--- NOTE | 2019-10-31 14:50 | P.HPIM ---
History of Present Illness 74-year-old that came in with multiple complaints patient doesn't give a good history patient mainly came in with abdominal pain he says diffuse abdominal pain has been going on for a few weeks and the patient will also coming of chest pain which appears to be atypical not associated with diaphoresis although patient had an episode of diaphoresis yesterday which is not related to his chest pain moderate amount of chest pain and abdominal pain. Patient says he peed air yesterday. Because of which IV obtain a CAT scan of the abdomen and pelvis without contrast as his creatinine is 2 I didn't see any obvious colovesical fistula although official read is still pending there is no seeping of Contrast into the bladder of the bladder is distended. Patient denied any dysuria denied any increased urinary frequency and the patient is also complaining of multiple bites from bedbugs. Patient chest pain is pretty vague nonspecific. Patient's EKG showing Q waves in the septal leads, cardiology was consulted patient has minimal irritation. Troponins which can be secondary to renal failure. Patient baseline creatinine around 1.2 now around 2. 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 Review of Systems REVIEW OF SYSTEMS: CONSTITUTIONAL: No fever, no malaise, no fatigue. HEENT: No recent visual problems or hearing problems. Denied any sore throat. CARDIOVASCULAR: No orthopnea, PND, no palpitations, no syncope. PULMONARY: no hemoptysis. GASTROINTESTINAL: No diarrhea, no nausea, no vomiting, no abdominal pain. NEUROLOGICAL: No headaches, no weakness, no numbness. HEMATOLOGICAL: Denies any bleeding or petechiae. GENITOURINARY: Denies any burning micturition, frequency, or urgency. MUSCULOSKELETAL/RHEUMATOLOGICAL: Denies any joint pain, swelling, or any muscle pain. ENDOCRINE: Denies any polyuria or polydipsia. The rest of the 14-point review of systems is negative. Past Medical History Past Medical History: Coronary Artery Disease (CAD), Chest Pain / Angina, Heart Failure, GERD/Reflux, Hyperlipidemia, Hypertension, Liver Disease, Myocardial Infarction ([place]), Osteoarthritis (OA), Pneumonia Additional Past Medical History / Comment(s): 04/02/16 UTI WITH SEPSIS, STATES HE SELF CATHS chronic back PAIN ddd, osteoporosis , PT stated he pulls his own teeth. History of Any Multi-Drug Resistant Organisms: None Reported Past Surgical History: Adenoidectomy, Heart Catheterization, Hernia Repair, Tonsillectomy Additional Past Surgical History / Comment(s): COLONOSCOPY,CATARACTS. recent heart cath -has triple vessel disease-no sx as of yet. Past Anesthesia/Blood Transfusion Reactions: No Reported Reaction Past Psychological History: No Psychological Hx Reported Smoking Status: Current every day smoker Past Alcohol Use History: None Reported, Daily Past Drug Use History: None Reported - Past Family History Mother Family Medical History: Myocardial Infarction ([place]) Brother(s) Family Medical History: CVA/TIA Sister(s) Family Medical History: CVA/TIA Medications and Allergies Home Medications Medication Instructions Recorded Confirmed Type ALPRAZolam 1 mg PO BID@529,172907/19/16 10/30/19 History Omeprazole [PriLOSEC] 20 mg PO BID@529,172907/19/16 10/30/19 History Spironolactone 25 mg PO DAILY@52907/19/16 10/30/19 History Aspirin EC [Ecotrin Low Dose] 162 mg PO BID@30,172901/31/17 10/30/19 History Baclofen [Lioresal] 10 mg PO BID PRN 01/31/17 10/30/19 History Nitroglycerin Sl Tabs [Nitrostat] 0.4 mg SUBLINGUAL Q5M PRN 01/31/17 10/30/19 History Multivitamins, Thera [Multivitamin 1 tab PO DAILY@52902/16/17 10/30/19 History (formulary)] Atorvastatin Calcium [Lipitor] 80 mg PO HS@172910/30/19 10/30/19 History Cetirizine HCl [Zyrtec] 10 mg PO DAILY@52910/30/19 10/30/19 History Ibuprofen [Motrin] 800 mg PO TID PRN 10/30/19 10/30/19 History Losartan [Cozaar] 25 mg PO DAILY@52910/30/19 10/30/19 History Metoprolol Tartrate [Lopressor] 25 mg PO BID@0530,1730 10/30/19 10/30/19 History Ticagrelor [Brilinta] 90 mg PO BID@0530,1730 10/30/19 10/30/19 History Allergies Allergy/AdvReac Type Severity Reaction Status Date / Time No Known Allergies Allergy Verified 10/30/19 19:32 Physical Exam Vitals: Vital Signs Temp Pulse Pulse Resp BP Pulse Ox 10/31/19 11:03 87 18 107/79 98 10/31/19 09:03 94 18 129/81 97 10/31/19 08:00 97.3 F L 93 16 129/81 97 10/31/19 07:14 86 18 137/91 97 10/31/19 05:00 80 17 126/88 96 10/31/19 04:00 80 18 124/69 96 10/31/19 03:00 75 18 124/69 97 10/31/19 02:00 76 18 126/79 97 10/31/19 00:00 86 18 128/84 95 10/30/19 23:22 92 17 128/84 96 10/30/19 20:07 86 10/30/19 19:59 100 18 144/96 96 10/30/19 19:54 103 H 10/30/19 16:46 89 18 137/89 95 Intake and Output 10/30/19 10/31/19 10/31/19 22:59 06:59 14:59 Intake Total 57.563 Balance 57.563 Intake: Intake, IV Titration 57.563 Amount Heparin Sod,Pork in 0.45% 57.563 NaCl 25,000 unit In 0.45 % NaCl 1 250ml.bag @ 12 UNITS/KG/HR 7.675 mls/hr IV .Q24H [facility] Rx#: [id number] Other: Weight 63.957 kg PHYSICAL EXAMINATION: GENERAL: The patient is alert and oriented x3, not in any acute distress. Well developed, well nourished. HEENT: Pupils are round and equally reacting to light. EOMI. No scleral icterus. No conjunctival pallor. Normocephalic, atraumatic. No pharyngeal erythema. No thyromegaly. CARDIOVASCULAR: S1 and S2 present. No murmurs, rubs, or gallops. PULMONARY: Bilateral rhonchi no significant wheezing or crackles were appreciated chest x-ray was read as bibasilar infiltrates ABDOMEN: Soft, nontender, nondistended, normoactive bowel sounds. No palpable organomegaly. MUSCULOSKELETAL: No joint swelling or deformity. EXTREMITIES: No cyanosis, clubbing, or pedal edema. NEUROLOGICAL: Gross neurological examination did not reveal any focal deficits. SKIN: No rashes. Results CBC & Chem 7: 10/31/19 06:23 10/30/19 17:02 Labs: Abnormal Lab Results - Last 24 Hours (Table) 10/30/19 10/30/19 10/30/19 Range/Units 17:02 17:02 17:02 RBC 4.11 L (4.30-5.90) m/uL Hgb 12.4 L (13.0-17.5) gm/dL Hct 38.3 L (39.0-53.0) % Lymphocytes # (1.0-4.8) k/uL PT (9.0-12.0) sec INR (<1.2) APTT (22.0-30.0) sec Chloride 109 H (98-107) mmol/L Carbon Dioxide 19 L (22-30) mmol/L BUN 34 H (9-20) mg/dL Creatinine 2.11 H (0.66-1.25) mg/dL Glucose 130 H (74-99) mg/dL Plasma Lactic Acid Alexey 3.2 H* (0.7-2.0) mmol/L Magnesium 1.2 L (1.6-2.3) mg/dL Troponin I (0.000-0.034) ng/mL Urine Protein (Negative) Urine Ketones (Negative) Ur Leukocyte Esterase (Negative) Urine WBC (0-5) /hpf Hyaline Casts (0-2) /lpf 10/30/19 10/30/19 10/30/19 Range/Units 17:02 17:02 23:37 RBC (4.30-5.90) m/uL Hgb (13.0-17.5) gm/dL Hct (39.0-53.0) % Lymphocytes # (1.0-4.8) k/uL PT 12.1 H (9.0-12.0) sec INR 1.2 H (<1.2) APTT (22.0-30.0) sec Chloride (98-107) mmol/L Carbon Dioxide (22-30) mmol/L BUN (9-20) mg/dL Creatinine (0.66-1.25) mg/dL Glucose (74-99) mg/dL Plasma Lactic Acid Alexey (0.7-2.0) mmol/L Magnesium (1.6-2.3) mg/dL Troponin I 0.071 H* 0.066 H* (0.000-0.034) ng/mL Urine Protein (Negative) Urine Ketones (Negative) Ur Leukocyte Esterase (Negative) Urine WBC (0-5) /hpf Hyaline Casts (0-2) /lpf 10/30/19 10/31/19 10/31/19 Range/Units Unknown 01:15 06:23 RBC 3.79 L (4.30-5.90) m/uL Hgb 11.2 L (13.0-17.5) gm/dL Hct 35.3 L (39.0-53.0) % Lymphocytes # 0.8 L (1.0-4.8) k/uL PT (9.0-12.0) sec INR (<1.2) APTT 39.3 H (22.0-30.0) sec Chloride (98-107) mmol/L Carbon Dioxide (22-30) mmol/L BUN (9-20) mg/dL Creatinine (0.66-1.25) mg/dL Glucose (74-99) mg/dL Plasma Lactic Acid Alexey (0.7-2.0) mmol/L Magnesium (1.6-2.3) mg/dL Troponin I (0.000-0.034) ng/mL Urine Protein Trace H (Negative) Urine Ketones 1+ H (Negative) Ur Leukocyte Esterase Moderate H (Negative) Urine WBC 24 H (0-5) /hpf Hyaline Casts 13 H (0-2) /lp 10/31/19 10/31/19 10/31/19 Range/Units 06:23 06:23 13:07 RBC (4.30-5.90) m/uL Hgb (13.0-17.5) gm/dL Hct (39.0-53.0) % Lymphocytes # (1.0-4.8) k/uL PT (9.0-12.0) sec INR (<1.2) APTT 50.7 H 45.9 H (22.0-30.0) sec Chloride (98-107) mmol/L Carbon Dioxide (22-30) mmol/L BUN (9-20) mg/dL Creatinine (0.66-1.25) mg/dL Glucose (74-99) mg/dL Plasma Lactic Acid Alexey (0.7-2.0) mmol/L Magnesium (1.6-2.3) mg/dL Troponin I 0.052 H* (0.000-0.034) ng/mL Urine Protein (Negative) Urine Ketones (Negative) Ur Leukocyte Esterase (Negative) Urine WBC (0-5) /hpf Hyaline Casts (0-2) /lpf Assessment and Plan Plan: -Abdominal pain etiology is not. Patient was started on Protonix possibility of gastritis or gastroenteritis. Awaiting official report from radiology dep artment for a CAT scan of the abdomen. Does not appear to have any colovesical fistula this was a concern because of his complaints of urinating air. -Chest pain appeared to be atypical does have mildly elevated troponins and cardiology will evaluate the patient this troponin elevation can be secondary to renal failure -Acute renal failure on chronic kidney disease hold off on losartan and Motrin and the diuretics patient is only on Aldactone we'll repeat echocardiogram as patient had previous EF of around 25% for now will start him on IV fluids and repeat basic metabolic profile tomorrow -History of systolic dysfunction patient clinically does not appear to be in heart failure exacerbation although patient does have mild bilateral pleural effusions on the CAT scan of the abdomen does not have any elevated JVD and run have any BNP available patient actually appears to be mildly hypovolemic patient was started on IV fluids patient had here for further on 20% which may have improved with repeat echocardiogram -Mild elevation of troponins probably secondary to renal failure -Acute renal failure possibly a prerenal azotemia because of which are started him on IV fluids although. Etiology cannot be ruled out patient has a distended bladder, patient will be straight catheterized and will monitor for any urinary retention. -Chronic kidney disease stage II [place]-coronary artery disease #Hypertension -Gastroesophageal reflux disease
--- NOTE | 2019-10-31 15:54 | P.CRDCN ---
History of Present Illness History of present illness: This is Alexus Moore PA-C dictating a consult on this patient The patient was interviewed and examined by me as well as by Dr. Hou Case discussed with Dr. Hou and he agrees with the plan of care HPI Patient is a 74-year-old male with past medical history significant for CAD status post stenting with in-stent thrombosis, severe ischemic cardiomyopathy, hypertension, dyslipidemia, smoking. He is a patient of Dr. Diop. The patient is a somewhat poor historian and restented with multiple complaints. He states that for the few days he has been having constant severe diffuse abdominal pain with associated stabbing left-sided chest pain which sometimes radiates down the left arm. He is unable to give me details about the onset and exact duration of the symptoms. He denies any nausea or vomiting or diarrhea. He does state that yesterday he had a bowel movement, with associated pneumaturia. He also states that while he was standing in his kitchen making coffee yesterday, he suddenly felt weak in his legs and became diaphoretic, and fell and hit his head. Denies syncope. Denies any preceding palpitations. Denies fevers or chills. He was unable to tell me which event occurred first and the relation to one another. The pneumaturia really concerned him so he presented to the emergency department for further evaluation. Upon presentation to the emergency department he was afebrile, pulse was in the 80s, respirations 18, blood pressure 137/89, oxygen saturation 95% on room air. Abdominal x-ray showed no intestinal obstruction or pneumo peritoneum. Chest x-ray showed minimal pleural reaction or fluid at the lung bases. EKG shows sinus mechanism with Q waves anteriorly and inferiorly, and ST changes laterally, these changes do not appear to be new compared to prior EKG in 2017. Labs are significant for BUN 34, creatinine 2.11, abnormal troponin. Patient seen and examined in the emergency department. Continues to complain of some abdominal pain and bloating. No chest pain currently. ROS: No fevers, chills or rigors, Positive for cough no nausea, vomiting or diarrhea, Positive for pneumaturia no musculoskeletal complaints, no strokes or seizures, no skin lesions. EXAMINATION: Temperature 97.3F, pulse in the 90s, respirations 16, blood pressure in the 120s over 80s, oxygen saturation 95% on room air Patient seen and examined resting in bed, does not appear to be in any acute distress Breath sounds are rhonchorous bilaterally Heart is regular, S1 and S2 audible, no audible murmurs No elevated JVD No lower extremity edema Abdomen diffusely tender to palpation REVIEW OF LABS, ECG & MEDICAL DATA WBC 4.0, hemoglobin 11.2, platelets 236, potassium 4.6, BUN 34, creatinine 2.11 Troponin 0.052, 0.066, 0.071 Most recent echocardiogram from 2016 shows EF less than 20% IMPRESSION / ASSESSMENT: Abdominal pain associated with atypical chest pain, abdominal x-ray showing no acute process, abdominal CT pending Abnormal troponins of unclear significance in the presence of BALBINA, peaked at 0.071, no acute changes on EKG, possibly secondary to decreased renal function History of severe ischemic cardiomyopathy, EF less than 20% in 2016 CAD status post stenting and 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 Hypertension Dyslipidemia Current smoker BALBINA PLAN: Obtain 2-D echo and Doppler studies to assess cardiac structure and function Monitor telemetry for arrhythmias continue dual antiplatelet therapy, statins, and beta blockers Losartan and spironolactone on hold due to his renal function Check lipid panel and A1C Workup of multiple other complaints per primary care team Further recommendations based upon his clinical course Past Medical History Past Medical History: Coronary Artery Disease (CAD), Chest Pain / Angina, Heart Failure, GERD/Reflux, Hyperlipidemia, Hypertension, Liver Disease, Myocardial Infarction (IN), Osteoarthritis (OA), Pneumonia Additional Past Medical History / Comment(s): 04/02/16 UTI WITH SEPSIS, STATES HE SELF CATHS chronic back PAIN ddd, osteoporosis , PT stated he pulls his own teeth. Last Myocardial Infarction Date:: 2015 History of Any Multi-Drug Resistant Organisms: None Reported Past Surgical History: Adenoidectomy, Heart Catheterization, Hernia Repair, Tonsillectomy Additional Past Surgical History / Comment(s): COLONOSCOPY,CATARACTS. recent heart cath -has triple vessel disease-no sx as of yet. Past Anesthesia/Blood Transfusion Reactions: No Reported Reaction Date of Last Stent Placement:: 2015 Past Psychological History: No Psychological Hx Reported Smoking Status: Current every day smoker Past Alcohol Use History: None Reported, Daily Past Drug Use History: None Reported - Past Family History Mother Family Medical History: Myocardial Infarction (IN) Additional Family Medical History / Comment(s): Mother had a IN in her 80s and . Brother(s) Family Medical History: CVA/TIA Sister(s) Family Medical History: CVA/TIA Father Family Medical History: No Reported History Additional Family Medical History / Comment(s): Father when pt was young from a drowning. Medications and Allergies Home Medications Medication Instructions Recorded Confirmed Type ALPRAZolam 1 mg PO BID@0530,172907/19/16 10/30/19 History Omeprazole [PriLOSEC] 20 mg PO BID@30,172907/19/16 10/30/19 History Spironolactone 25 mg PO DAILY@52907/19/16 10/30/19 History Aspirin EC [Ecotrin Low Dose] 162 mg PO BID@529,172901/31/17 10/30/19 History Baclofen [Lioresal] 10 mg PO BID PRN 01/31/17 10/30/19 History Nitroglycerin Sl Tabs [Nitrostat] 0.4 mg SUBLINGUAL Q5M PRN 01/31/17 10/30/19 History Multivitamins, Thera [Multivitamin 1 tab PO DAILY@52902/16/17 10/30/19 History (formulary)] Atorvastatin Calcium [Lipitor] 80 mg PO HS@172910/30/19 10/30/19 History Cetirizine HCl [Zyrtec] 10 mg PO DAILY@52910/30/19 10/30/19 History Ibuprofen [Motrin] 800 mg PO TID PRN 10/30/19 10/30/19 History Losartan [Cozaar] 25 mg PO DAILY@52910/30/19 10/30/19 History Metoprolol Tartrate [Lopressor] 25 mg PO BID@30,172910/30/19 10/30/19 History Ticagrelor [Brilinta] 90 mg PO BID@30,172910/30/19 10/30/19 History Allergies Allergy/AdvReac Type Severity Reaction Status Date / Time No Known Allergies Allergy Verified 10/30/19 19:32 Physical Exam Vitals: Vital Signs Temp Pulse Pulse Resp BP Pulse Ox 10/31/19 12:00 100 18 10/31/19 11:03 87 18 107/79 98 01/29/20 09:03 94 18 129/81 97 10/31/19 08:00 97.3 F L 93 16 129/81 97 10/31/19 07:14 86 18 137/91 97 10/31/19 05:00 80 17 126/88 96 10/31/19 04:00 80 18 124/69 96 10/31/19 03:00 75 18 124/69 97 10/31/19 02:00 76 18 126/79 97 10/31/19 00:00 86 18 128/84 95 10/30/19 23:22 92 17 128/84 96 10/30/19 20:07 86 10/30/19 19:59 100 18 144/96 96 10/30/19 19:54 103 H 10/30/19 16:46 89 18 137/89 95 Intake and Output 10/31/19 10/31/19 10/31/19 06:59 14:59 22:59 Intake Total 57.563 Balance 57.563 Intake: Intake, IV Titration 57.563 Amount Heparin Sod,Pork in 0.45% 57.563 NaCl 25,000 unit In 0.45 % NaCl 1 250ml.bag @ 12 UNITS/KG/HR 7.675 mls/hr IV .Q24H [facility] Rx#: [id number] Other: Voiding Method Urinal # Voids 1 Weight 63.957 kg Results 10/31/19 06:23 10/30/19 17:02 Cardiac Enzymes 10/30/19 10/30/19 10/30/19 Range/Units 17:02 17:02 23:37 AST 33 (17-59) U/L Troponin I 0.071 H* 0.066 H* (0.000-0.034) ng/mL 10/31/19 Range/Units 06:23 AST (17-59) U/L Troponin I 0.052 H* (0.000-0.034) ng/mL Coagulation 10/30/19 10/31/19 10/31/19 Range/Units 17:02 01:15 06:23 PT 12.1 H (9.0-12.0) sec APTT 23.2 39.3 H 50.7 H (22.0-30.0) sec 10/31/19 Range/Units 13:07 PT (9.0-12.0) sec APTT 45.9 H (22.0-30.0) sec CBC 10/30/19 10/31/19 Range/Units 17:02 06:23 WBC 8.0 4.0 (3.8-10.6) k/uL RBC 4.11 L 3.79 L (4.30-5.90) m/uL Hgb 12.4 L 11.2 L (13.0-17.5) gm/dL Hct 38.3 L 35.3 L (39.0-53.0) % Plt Count 297 263 (150-450) k/uL Comprehensive Metabolic Panel 10/30/19 Range/Units 17:02 Sodium 142 (137-145) mmol/L Potassium 4.6 (3.5-5.1) mmol/L Chloride 109 H (98-107) mmol/L Carbon Dioxide 19 L (22-30) mmol/L BUN 34 H (9-20) mg/dL Creatinine 2.11 H (0.66-1.25) mg/dL Glucose 130 H (74-99) mg/dL Calcium 9.4 (8.4-10.2) mg/dL AST 33 (17-59) U/L ALT 18 (4-49) U/L Alkaline Phosphatase 99 (38-126) U/L Total Protein 8.2 (6.3-8.2) g/dL Albumin 4.4 (3.5-5.0) g/dL Current Medications Generic Name Dose Route Start Last Admin Trade Name Freq PRN Reason Stop Dose Admin Alprazolam 1 mg 10/31/19 10:51 Xanax PO BID@0530,1730 PRN Anxiety Aspirin 162 mg 10/31/19 05:30 10/31/19 07:09 Aspirin PO 162 mg BID@0530,1730 TI Administration Atorvastatin Calcium 80 mg 10/31/19 17:30 Lipitor PO HS@1730 TI Baclofen 10 mg 10/30/19 22:00 Lioresal PO BID PRN Muscle Spasm Heparin Sodium (Porcine) 0 unit 10/30/19 18:53 10/31/19 03:34 Heparin IV 1,575 unit PER PROTOCOL PRN Administration Low PTT Protocol Sodium Chloride 1,000 mls @ 75 mls/hr 10/30/19 17:45 10/31/19 07:08 Saline 0.9% IV 75 mls/hr .[id number] TI Administration Heparin Sodium/Sodium Chloride 250 mls @ 7.675 mls/hr 10/30/19 19:00 10/31/19 03:35 25,000 unit/ Sodium Chloride IV 14 units/kg/hr .Q24H TI 8.954 mls/hr Titration Protocol 12 UNITS/KG/HR Loratadine 10 mg 10/31/19 05:30 10/31/19 07:11 Claritin PO 10 mg DAILY@0530 TI Administration Metoprolol Tartrate 25 mg 10/31/19 05:30 10/31/19 07:09 Lopressor PO 25 mg BID@0530,1730 [facility] Administration Multivitamins 1 each 10/31/19 05:30 10/31/19 07:10 Theragran PO 1 each DAILY@0530 TI Administration Naloxone HCl 0.2 mg 10/30/19 18:55 Narcan IV Q2M PRN Opioid Reversal Nitroglycerin 0.4 mg 10/30/19 21:16 Nitrostat SUBLINGUAL Q5M PRN Chest Pain Pantoprazole Sodium 40 mg 10/31/19 05:30 10/31/19 07:11 Protonix PO 40 mg BID@0530,1730 [facility] Administration Tamsulosin HCl 0.4 mg 10/31/19 18:30 Flomax PO PC-SUPPER TI Ticagrelor 90 mg 10/31/19 05:30 10/31/19 07:10 Brilinta PO 90 mg BID@0530,1730 [facility] Administration Intake and Output 10/31/19 10/31/19 10/31/19 06:59 14:59 22:59 Intake Total 57.563 Balance 57.563 Intake: Intake, IV Titration 57.563 Amount Heparin Sod,Pork in 0.45% 57.563 NaCl 25,000 unit In 0.45 % NaCl 1 250ml.bag @ 12 UNITS/KG/HR 7.675 mls/hr IV .Q24H [facility] Rx#: [id number] Other: Voiding Method Urinal # Voids 1 Weight 63.957 kg Patient Weight 11/01/19 06:59 Weight 63.957 kg 10/31/19 06:23 10/30/19 17:02
--- NOTE | 2019-10-31 16:07 | CT ---
EXAMINATION TYPE: CT abdomen pelvis wo con DATE OF EXAM: 10/31/2019 COMPARISON: 06/04/2015 HISTORY: 69-year-old male Acute renal failure, dehydration, elevated troponin levels CT DLP: 506.7 mGycm. Automated exposure control for dose reduction was used. TECHNIQUE: Contiguous axial scanning of the abdomen and pelvis without IV contrast. Coronal and sagit jered reconstructions performed. FINDINGS: Heart upper limits of normal in size without pericardial effusion. Coronary vessel calcifications are present and unremarkable for coronary artery disease. Small right and trace left pleural effusions with adjacent atelectasis. Periportal edema within the liver suggests aggressive hydration. No abnormal gallbladder distention. Some 1.6 cm low density nodularity of the left adrenal gland could reflect underlying adrenal adenoma given attenuation of 2 Hounsfield units. Benign cortical cysts within the lower pole of the right kidney measuring up to 2.1 cm. These show mi nimal enlargement from 2015. Suspect additional cortical cyst lower pole left kidney at 1.5 cm also h aving enlarged from 2015. Bilateral perinephric stranding. Nonobstructive 3 mm left renal calculus. No hydronephrosis is seen. No dilated small bowel, free fluid, or free air. Normal appendix. Oral contrast progressed to the ileocecal valve. Only mild scattered stool. Scattere d left-sided colonic diverticulosis. No pericolonic inflammatory change seen. Marked distention of the urinary bladder nearly up to the umbilicus measuring 15.5 cm craniocaudal. P rostate gland is enlarged measuring 6.1 cm wide with impression on the posterior bladder base. Multiple pelvic phlebolith. No abnormal fluid collection in the pelvis. Multiple moderate vascular calcifications abdominal aorta and iliac arteries. Bones: Degenerative changes at the hips and left SI joint. Left L5 hemisacralization with degenerativ e disc disease throughout the lumbar spine and facet arthropathy lower lumbar spine. IMPRESSION: 1. Small right and trace left pleural effusions. Mild anasarca change in periportal edema. Findings could represent aggressive fluid resuscitation or third spacing and fluid overload state. 2. Mild bilateral perinephric stranding could relate to the anasarca changes or acute kidney injury. Correlate to exclude underlying infection. Nonobstructive 3 mm left renal calculus. 3. Severe distention of the urinary bladder up to 15.5 cm, nearly to the level of the umbilicus. Con receiving inspector post void ultrasound to exclude urinary retention possibly from BPH and bladder outlet obstruct ion given prostatomegaly of 6.1 cm wide. 4. Left-sided clonic diverticulosis. No evidence for acute diverticulitis. 5. Suspect a 1.6 cm left adrenal adenoma. 6 month follow-up CT recommended to reassess.
[2019-10-31 16:50] LABS: Glucose,Whole Blood 118 mg/dL (75-99)
[2019-10-31] MEDS: ATORVASTATIN 80 MG TAB PO SCH (17:29)
[2019-10-31] MEDS: TAMSULOSIN 0.4 MG CAP.ER.24H PO SCH (20:23)
[2019-11-01] MEDS: HEPARIN SOD,PORK IN 0.45% NACL 25,000 UNIT in 0.45% NACL 1 250ML.BAG IV SCH (00:01)
[2019-11-01] MEDS: SODIUM CHLORIDE 0.9% 1,000 ML IV SCH ×3 (00:02→12:10)
[2019-11-01] MEDS: TICAGRELOR 90 MG TAB PO SCH ×2 (06:07→16:37)
[2019-11-01] MEDS: MULTIVITAMINS, THERA 1 EACH TAB PO SCH (06:07)
[2019-11-01] MEDS: PANTOPRAZOLE 40 MG TABLET PO SCH ×2 (06:07→16:37)
[2019-11-01] MEDS: ASPIRIN 81 MG PO SCH ×2 (06:08→16:37)
[2019-11-01] MEDS: METOPROLOL TARTRATE 25 MG TAB PO SCH ×2 (06:08→16:37)
[2019-11-01] MEDS: LORATADINE 10 MG TAB PO SCH (06:08)
[2019-11-01] MEDS: ALPRAZolam 1 MG TAB PO PRN ×2 (06:10→16:39)
[2019-11-01 06:16] LABS: Basophils % (A) 0 %; Eosinophils # (A) 0.1 k/uL (0-0.7); Eosinophils % (A) 1 %; HCT 34.7 % (39.0-53.0); HGB 10.8 gm/dL (13.0-17.5); Hypochromasia Slight; Lymphocytes % (A) 21 %; MCH 29.3 pg (25.0-35.0); MCHC 31.3 g/dL (31.0-37.0); MCV 93.8 fL (80.0-100.0); Mean Platelet Volume 8.9; Monocytes # (A) 0.5 k/uL (0-1.0); Monocytes % (A) 5 %; Neutrophils # (A) 6.9 k/uL (1.3-7.7); Neutrophils % (A) 72 %; Platelet Count 253 k/uL (150-450); RDW 13.2 % (11.5-15.5); WBC 9.6 k/uL (3.8-10.6)
[2019-11-01] MEDS ORDERED: FUROSEMIDE 10 MG/ML 4 ML VIAL IV STA (06:50)
[2019-11-01 09:49] LABS: Calcium 8.7 mg/dL (8.4-10.2); Potassium 4.9 mmol/L (3.5-5.1)
[2019-11-01] MEDS: FUROSEMIDE 10 MG/ML 4 ML VIAL IV SCH ×2 (10:52→21:52)
--- NOTE | 2019-11-01 11:10 | ECHOF ---
Referral Reason:Cardiomegaly MEASUREMENTS -------- HEIGHT: 170.2 cm WEIGHT: 64.0 kg BP: RVIDd: 3.8 cm (< 3.3) IVSd: 0.9 cm (0.6 - 1.1) LVIDd: 5.8 cm (3.9 - 5.3) LVPWd: 1.4 cm (0.6 - 1.1) IVSs: 1.1 cm LVIDs: 5.8 cm LVPWs: 1.3 cm LA Diam: 5.0 cm (2.7 - 3.8) LAESV Index (A-L): 60.27 ml/m Ao Diam: 3.6 cm (2.0 - 3.7) AV Cusp: 2.0 cm (1.5 - 2.6) MV EXCURSION: 17.007 mm (> 18.000) MV EF SLOPE: 80 mm/s (70 - 150) EPSS: 2.4 cm MV E Eduard: 0.69 m/s MV DecT: 142 ms MV A Eduard: 0.36 m/s MV E/A Ratio: 1.93 RAP: 15.00 mmHg RVSP: 69.24 mmHg FINDINGS -------- Sinus rhythm. This was a technically good study. The left ventricular size is normal. There is severe global hypokinesis of LV . Overall left vent ricular systolic function is severely impaired with, an EF < 20%. The right ventricle is mildly enlarged. The left atrium is markedly dilated. LA is severely dilated >40 ml/m2 The right atrial size is normal. There is mild aortic valve sclerosis. Mild mitral annular calcification present. Moderate mitral regurgitation is present. Moderate tricuspid regurgitation present. There is severe pulmonary hypertension. The right ventr icular systolic pressure, as measured by Doppler, is 69.24mmHg. There is no pulmonic regurgitation present. The aortic root size is normal. There is no pericardial effusion. CONCLUSIONS -------- 1. Sinus rhythm. 2. This was a technically good study. 3. The left ventricular size is normal. 4. There is severe global hypokinesis of LV . 5. Overall left ventricular systolic function is severely impaired with, an EF < 20%. 6. The right ventricle is mildly enlarged. 7. The left atrium is markedly dilated. 8. LA is severely dilated >40 ml/m2 9. The right atrial size is normal. 10. There is mild aortic valve sclerosis. 11. Mild mitral annular calcification present. 12. Moderate mitral regurgitation is present. 13. Moderate tricuspid regurgitation present. 14. There is severe pulmonary hypertension. 15. The right ventricular systolic pressure, as measured by Doppler, is 69.24mmHg. 16. There is no pulmonic regurgitation present. 17. The aortic root size is normal. 18. There is no pericardial effusion. STATION EXAMINER: Rea Pathak RDCS
--- NOTE | 2019-11-01 12:29 | CONS ---
CONSULTATION REASON FOR CONSULT: Renal failure. HISTORY OF PRESENT ILLNESS: The patient is a 74-year-old male who was admitted to the hospital with complaints of abdominal pain, which has been going on for some time. Patient also developed chest pain, which has now improved. He denies any prior history of kidney diseases. The patient's CT of the abdomen shows severe urine retention and bladder outlet obstruction. No hydronephrosis was seen. There was a 1.6 cm left adrenal adenoma noted and left-sided colonic diverticulosis. Currently patient has an indwelling Palomares catheter. He has had good urine output, about 1000 mL of urine was initially obtained. The creatinine is down from 2.1 to 1.67. Previous labs show creatinine 1.2 on 03/13/2019. PAST MEDICAL HISTORY: Significant for hypertension, coronary artery disease, CHF, gastroesophageal reflux disease, hyperlipidemia, MA, osteoarthritis, osteoporosis. PAST SURGICAL HISTORY: Cardiac catheterization, colonoscopy, cataracts, hernia repair, tonsillectomy, cardiac cath. SOCIAL HISTORY: Patient is a smoker. No history of drug abuse or alcohol abuse. MEDICATIONS: Medications at home included Xanax, Prilosec, spironolactone, aspirin, baclofen, Lipitor, multivitamins, Nitrostat, Zyrtec, Motrin, Cozaar, Lopressor, Brilinta. ALLERGIES: None. PHYSICAL EXAMINATION: On examination, patient is comfortable, awake, not in any acute distress. Blood pressure was 119/78, heart rate 78 per minute. He is afebrile. EXAMINATION OF THE HEART: S1 and S2. EXAMINATION OF THE LUNGS: Bilateral breath sounds are heard. ABDOMEN: Soft, nontender. Examination of lower extremities shows no evidence of edema. TOOL MAKER EXAM: Grossly intact. LABS: Labs show sodium 140, potassium 4.9, chloride 112, CO2 is 18, BUN 38, creatinine 1.67, hemoglobin 10.8 g/dL. UA shows trace protein, ketones 1+, no blood was seen. ASSESSMENT: 1. Acute kidney injury, obstructive uropathy with urine retention currently with indwelling Palomares catheter. Continue with the Palomares catheter for now. The patient is maintained on IV Lasix which we can continue for one more day and change to p.o. Lasix in a.m. 2. Mild volume overload. 3. Benign prostatic hypertrophy and urine retention. Maintain patient on Flomax. 4. Gastroesophageal reflux disease. 5. Chronic kidney disease, stage 3, secondary to nephrosclerosis. Previous creatinine about 1.2 mg/dL in March of 2019. PLAN: Continue with IV Lasix. Continue Palomares catheter. Repeat labs in a.m. Change to p.o. Lasix in a.m. Add Flomax. Thank you for this consultation. We will continue to follow the patient with you during his hospitalization. MMODL / IJN: [id number] /
[2019-11-01 13:51] VITALS: BMI 24.0
--- NOTE | 2019-11-01 16:09 | P.PN ---
Subjective Progress Note Date: 11/01/19 Principal diagnosis: 74-year-old that came in with multiple complaints patient doesn't give a good history patient mainly came in with abdominal pain he says diffuse abdominal pain has been going on for a few weeks and the patient will also coming of chest pain which appears to be atypical not associated with diaphoresis although patient had an episode of diaphoresis yesterday which is not related to his chest pain moderate amount of chest pain and abdominal pain. Patient says he peed air yesterday. Because of which IV obtain a CAT scan of the abdomen and pelvis without contrast as his creatinine is 2 I didn't see any obvious colovesical fistula although official read is still pending there is no seeping of Contrast into the bladder of the bladder is distended. Patient denied any dysuria denied any increased urinary frequency and the patient is also complaining of multiple bites from bedbugs. Patient chest pain is pretty vague nonspecific. Patient's EKG showing Q waves in the septal leads, cardiology was consulted patient has minimal irritation. Troponins which can be secondary to renal failure. Patient baseline creatinine around 1.2 now around 2. 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 11/01/2019 Patient is sitting up in the bed currently with 2 L of oxygen via nasal cannula as he has worked with physical therapy today and was up to the shower and became slightly short of breath. Discussed with nursing staff about weaning patient from oxygen as he does not normally use this. Patient states that abdominal pain has resolved status post receiving an indwelling Palomares. Patient is on IV diuretics in the form of Lasix twice daily and will continue at this time. Creatinine showed some slight improvement and is currently 1.67 and IV fluids h ave been turned down to 20 mL per hour. Patient is having a hard time with current diet as he has no teeth and so dysphasia 3 which is mostly soft foods was ordered for patient convenience. Currently patient denies any chest pain or palpitations. Patient is afebrile. Patient denies any nausea or vomiting and has been tolerating diet. Objective - Vital Signs Vital signs: Vital Signs Temp 97.8 F 11/01/19 12:00 Pulse 84 11/01/19 12:00 Resp 22 11/01/19 12:00 BP 111/73 11/01/19 12:00 Pulse Ox 95 11/01/19 12:00 Intake & Output 10/31/19 11/01/19 11/01/19 18:59 06:59 18:59 Intake Total 422.96 200 Output Total 2000 Balance 422.96 -1800 Weight 63.957 kg 69.7 kg Intake: Intake, IV Titration 182.96 Amount Heparin Sod,Pork in 0.45% 182.96 NaCl 25,000 unit In 0.45 % NaCl 1 250ml.bag @ 12 UNITS/KG/HR 7.675 mls/hr IV .Q24H [facility] Rx#: [id number] Oral 240 200 Output: Urine 2000 Straight 500 Other: Voiding Method Urinal Toilet Indwelling Catheter Self-Catheterization # Voids 1 1 0 - Exam GENERAL: The patient is alert and oriented x3, not in any acute distress. Well developed, well nourished. HEENT: Pupils are round and equally reacting to light. EOMI. No scleral icterus. No conjunctival pallor. Normocephalic, atraumatic. No pharyngeal erythema. No thyromegaly. CARDIOVASCULAR: S1 and S2 present. No murmurs, rubs, or gallops. PULMONARY: Bilateral rhonchi no significant wheezing or crackles were appreciated chest x-ray was read as bibasilar infiltrates ABDOMEN: Soft, nontender, nondistended, normoactive bowel sounds. No palpable organomegaly. MUSCULOSKELETAL: No joint swelling or deformity. EXTREMITIES: No cyanosis, clubbing, or pedal edema. NEUROLOGICAL: Gross neurological examination did not reveal any focal deficits. SKIN: No rashes. - Labs CBC & Chem 7: 11/01/19 05:46 11/01/19 05:46 Labs: Abnormal Lab Results - Last 24 Hours (Table) 10/31/19 10/31/19 11/01/19 Range/Units 13:07 16:34 05:46 RBC 3.70 L (4.30-5.90) m/uL Hgb 10.8 L (13.0-17.5) gm/dL Hct 34.7 L (39.0-53.0) % APTT 45.9 H (22.0-30.0) sec Chloride (98-107) mmol/L Carbon Dioxide (22-30) mmol/L BUN (9-20) mg/dL Creatinine (0.66-1.25) mg/dL POC Glucose (mg/dL) 118 H (75-99) mg/dL HDL Cholesterol (40-60) mg/dL 11/01/19 11/01/19 Range/Units 05:46 05:46 RBC (4.30-5.90) m/uL Hgb (13.0-17.5) gm/dL Hct (39.0-53.0) % APTT 44.3 H (22.0-30.0) sec Chloride 112 H (98-107) mmol/L Carbon Dioxide 18 L (22-30) mmol/L BUN 38 H (9-20) mg/dL Creatinine 1.67 H (0.66-1.25) mg/dL POC Glucose (mg/dL) (75-99) mg/dL HDL Cholesterol 35 L (40-60) mg/dL Microbiology - Last 24 Hours (Table) 10/30/19 19:43 Blood Culture - Preliminary Blood No Growth after 24 hours Assessment and Plan Assessment: -Abdominal pain etiology is not clear. Patient was started on Protonix possibility of gastritis or gastroenteritis. Awaiting official report from radiology department for a CAT scan of the abdomen. Does not appear to have any colovesical fistula this was a concern because of his complaints of urinating air. -Chest pain appeared to be atypical does have mildly elevated troponins and cardiology will evaluate the patient this troponin elevation can be secondary to renal failure -Acute renal failure on chronic kidney disease hold off on losartan and Motrin and the diuretics patient is only on Aldactone we'll repeat echocardiogram as patient had previous EF of around 25% for now will start him on IV fluids and repeat basic metabolic profile tomorrow. Creatinine slightly improved and is 1.67 -History of systolic dysfunction patient clinically does not appear to be in heart failure exacerbation although patient does have mild bilateral pleural effusions on the CAT scan of the abdomen does not have any elevated JVD and run have any BNP available patient actually appears to be mildly hypovolemic patient was started on IV fluids patient had here for further on 20% which may have improved with repeat echocardiogram -Mild elevation of troponins probably secondary to renal failure -Acute renal failure possibly a prerenal azotemia because of which are started him on IV fluids although. Etiology cannot be ruled out patient has a distended bladder, patient will be straight catheterized and will monitor for any urinary retention. An indwelling Palomares catheter was placed with good urine output. Patient will continue on IV Lasix at this time and may possibly transition to oral tomorrow. -Chronic kidney disease stage II -coronary artery disease -Hypertension -Gastroesophageal reflux disease
[2019-11-01] MEDS: TAMSULOSIN 0.4 MG CAP.ER.24H PO SCH (16:37)
[2019-11-01] MEDS: ATORVASTATIN 80 MG TAB PO SCH (16:37)
--- NOTE | 2019-11-01 16:48 | P.PN ---
Subjective This is Alexus Moore PA-C dictating a progress note on this patient The patient was interviewed and examined by me as well as by Dr. Hou Case discussed with Dr. Hou and he agrees with the plan of care HPI/interval history atshaquille is a 74-year-old male with past medical history significant for CAD status post stenting with in-stent thrombosis, severe ischemic cardiomyopathy, hypertension, dyslipidemia, smoking who presented with multiple complaints including abdominal pain, chest pain, presyncope and pneumaturia. He was found to be in acute renal failure as well as had abnormal troponins. Abdominal CT showed small right and trace left pleural effusion, severe distention of his urinary bladder. A Palomares catheter was placed. Patient seen and examined sitting up at the side of the bed. States his abdominal symptoms resolved completely when catheter was placed in his bladder was emptied. Denies any further chest pain. He does have some shortness of breath when he gets up and walks. He also has been getting dizzy when he stands up. EXAMINATION Patient is afebrile, pulse in the 80s, respirations 20, blood pressure 118/81, oxygen saturation 95% on room air Patient seen and examined sitting up at the side of the bed, does not appear to be in any acute distress Lungs are diminished and rhonchorous bilaterally but clear with coughing Heart is regular, no audible murmurs No lower extremity edema REVIEW OF LABS, ECG WBC 9.6, hemoglobin 10.8, platelets 253, potassium 4.9, BUN 38, creatinine 1.67 Echocardiogram showed global hypokinesis, EF less than 20%, moderate MR IMPRESSION / ASSESSMENT: Abdominal pain associated with atypical chest pain, abdominal x-ray showing no acute process, abdominal CT pending Abnormal troponins of unclear significance in the presence of BALBINA, peaked at 0.071, no acute changes on EKG, possibly secondary to decreased renal function chronic severe ischemic cardiomyopathy, recent echo showing EF less than 20% Chronic systolic heart failure, does not appear to be in acute CHF exacerbation CAD status post stenting and 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 Presyncope and dizziness upon standing, possible orthostatic hypotension Hypertension Dyslipidemia Current smoker BALBINA, BUN and creatinine improved PLAN: Obtain orthostatic vital signs Stop heparin Continue metoprolol titrate 25 twice a day Hold off on starting any other cardio myopathy medications until his renal function improved Consider stopping Lasix and fluids as his renal function is improving Objective - Vital Signs Vital signs: Vital Signs Temp 97.6 F 11/01/19 16:34 Pulse 89 11/01/19 16:34 Resp 20 11/01/19 16:34 BP 118/81 11/01/19 16:34 Pulse Ox 95 11/01/19 16:34 Intake & Output 10/31/19 11/01/19 11/01/19 18:59 06:59 18:59 Intake Total 422.96 400 Output Total 3450 Balance 422.96 -3050 Weight 63.957 kg 69.7 kg 69.7 kg Intake: Intake, IV Titration 182.96 Amount Heparin Sod,Pork in 0.45% 182.96 NaCl 25,000 unit In 0.45 % NaCl 1 250ml.bag @ 12 UNITS/KG/HR 7.675 mls/hr IV .Q24H [facility] Rx#: [id number] Oral 240 400 Output: Urine 3450 Straight 950 Other: Voiding Method Urinal Toilet Indwelling Catheter Self-Catheterization # Voids 1 1 0 - Labs CBC & Chem 7: 11/01/19 05:46 11/01/19 05:46 Labs: Abnormal Lab Results - Last 24 Hours (Table) 10/31/19 11/01/19 11/01/19 Range/Units 16:34 05:46 05:46 RBC 3.70 L (4.30-5.90) m/uL Hgb 10.8 L (13.0-17.5) gm/dL Hct 34.7 L (39.0-53.0) % APTT 44.3 H (22.0-30.0) sec Chloride (98-107) mmol/L Carbon Dioxide (22-30) mmol/L BUN (9-20) mg/dL Creatinine (0.66-1.25) mg/dL POC Glucose (mg/dL) 118 H (75-99) mg/dL HDL Cholesterol (40-60) mg/dL 11/01/19 Range/Units 05:46 RBC (4.30-5.90) m/uL Hgb (13.0-17.5) gm/dL Hct (39.0-53.0) % APTT (22.0-30.0) sec Chloride 112 H (98-107) mmol/L Carbon Dioxide 18 L (22-30) mmol/L BUN 38 H (9-20) mg/dL Creatinine 1.67 H (0.66-1.25) mg/dL POC Glucose (mg/dL) (75-99) mg/dL HDL Cholesterol 35 L (40-60) mg/dL Microbiology - Last 24 Hours (Table) 10/30/19 19:43 Blood Culture - Preliminary Blood No Growth after 24 hours
[2019-11-02 06:04] LABS: Basophils # (A) 0.1 k/uL (0-0.2); Basophils % (A) 1 %; Eosinophils # (A) 0.3 k/uL (0-0.7); Eosinophils % (A) 3 %; HCT 37.3 % (39.0-53.0); HGB 11.5 gm/dL (13.0-17.5); Hypochromasia Slight; Lymphocytes # (A) 1.7 k/uL (1.0-4.8); Lymphocytes % (A) 17 %; MCH 28.5 pg (25.0-35.0); MCHC 30.8 g/dL (31.0-37.0); MCV 92.5 fL (80.0-100.0); Mean Platelet Volume 9.1; Monocytes # (A) 0.5 k/uL (0-1.0); Monocytes % (A) 5 %; Neutrophils # (A) 7.1 k/uL (1.3-7.7); Neutrophils % (A) 73 %; Platelet Count 268 k/uL (150-450); RBC 4.03 m/uL (4.30-5.90); RDW 13.2 % (11.5-15.5); WBC 9.8 k/uL (3.8-10.6)
[2019-11-02 06:13] LABS: Calcium 9.5 mg/dL (8.4-10.2); Potassium 4.3 mmol/L (3.5-5.1)
[2019-11-02] MEDS: PANTOPRAZOLE 40 MG TABLET PO SCH ×2 (06:13→16:06)
[2019-11-02] MEDS: MULTIVITAMINS, THERA 1 EACH TAB PO SCH (06:13)
[2019-11-02] MEDS: METOPROLOL TARTRATE 25 MG TAB PO SCH ×2 (06:13→16:06)
[2019-11-02] MEDS: TICAGRELOR 90 MG TAB PO SCH ×2 (06:13→16:06)
[2019-11-02] MEDS: ASPIRIN 81 MG PO SCH (06:13)
[2019-11-02] MEDS: LORATADINE 10 MG TAB PO SCH (06:13)
[2019-11-02] MEDS: ALPRAZolam 1 MG TAB PO PRN ×2 (06:16→16:14)
[2019-11-02] MEDS ORDERED: SODIUM CHLORIDE 0.9% 500 ML 250 ML IV ONE (09:26)
[2019-11-02] MEDS ORDERED: SODIUM CHLORIDE 0.9% 750 ML IV ONE (10:16)
--- NOTE | 2019-11-02 10:21 | P.PN ---
Subjective This is Alexus Moore PA-C dictating a progress note on this patient The patient was interviewed and examined by me as well as by Dr. Hou Case discussed with Dr. Hou and he agrees with the plan of care HPI/interval history patient is a 74-year-old male with past medical history significant for CAD status post stenting with in-stent thrombosis, severe ischemic cardiomyopathy, hypertension, dyslipidemia, smoking who presented with multiple complaints including abdominal pain, chest pain, presyncope and pneumaturia. He was found to be in acute renal failure as well as had abnormal troponins. Abdominal CT showed small right and trace left pleural effusion, severe distention of his urinary bladder. A Palomares catheter was placed. Patient has been receiving IV fluids and Lasix. he has been hypotensive. Patient seen and examined resting in bed. States he is dizzy when he gets up and walks to the restroom and he breaks out into a sweat. Denies syncope. His breathing has improved. His abdominal pain and chest pain has improved. EXAMINATION pt is afebrile, pulse in the 80s, blood pressures in the 90s over 50s, oxygen saturation 96% on 2 L nasal cannula Patient seen and examined sitting up at the side of the bed, does not appear to be in any acute distress Lungs are diminished Heart is regular, no audible murmurs No lower extremity edema REVIEW OF LABS, ECG WBC 9.8, hemoglobin 11.5, platelets 268, potassium 4.3, BUN 38, creatinine 1.63 Echocardiogram showed global hypokinesis, EF less than 20%, moderate MR IMPRESSION / ASSESSMENT: Abdominal pain associated with atypical chest pain, abdominal x-ray showing no acute process, CT showing distended bladder, symptoms improved after Palomares cath was inserted Abnormal troponins of unclear significance in the presence of BALBINA, peaked at 0.071, no acute changes on EKG, possibly secondary to decreased renal function chronic severe ischemic cardiomyopathy, recent echo showing EF less than 20% Chronic systolic heart failure CAD status post stenting and 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 Presyncope and dizziness upon standing,likely due to hypotension Hypertension, currently hypotensive Dyslipidemia Current smoker BALBINA, BUN and creatinine improved PLAN: Stop Lasix in view of his hypotension Cautious rehydration with IV fluids Recommend outpatient workup for atypical chest discomfort and abnormal troponin and the presence of acute renal failure once his renal function improves We will optimize his cardiomyopathy medications once his renal function improves Reduce aspirin to 81 mg daily Consider discontinuing Flomax as it may be contributing to his hypotension Objective - Vital Signs Vital signs: Vital Signs Temp 97.6 F 11/02/19 08:10 Pulse 84 11/02/19 08:10 Resp 18 11/02/19 08:10 BP 72/38 11/02/19 10:17 Pulse Ox 96 11/02/19 08:10 Intake & Output 11/01/19 11/02/19 11/02/19 18:59 06:59 18:59 Intake Total 1012.815 240 Output Total 4650 1400 1500 Balance -3637.185 -1400 -1260 Weight 69.7 kg 64.6 kg Intake: Intake, IV Titration 152.815 Amount Heparin Sod,Pork in 0.45% 152.815 NaCl 25,000 unit In 0.45 % NaCl 1 250ml.bag @ 12 UNITS/KG/HR 7.675 mls/hr IV .Q24H [facility] Rx#: [id number] Oral 860 240 Output: Urine 4650 1400 1500 Straight 950 Other: Voiding Method Indwelling Catheter Indwelling Catheter Indwelling Catheter # Voids 0 - Labs CBC & Chem 7: 11/02/19 05:27 11/02/19 05:27 Labs: Abnormal Lab Results - Last 24 Hours (Table) 11/02/19 11/02/19 Range/Units 05:27 05:27 RBC 4.03 L (4.30-5.90) m/uL Hgb 11.5 L (13.0-17.5) gm/dL Hct 37.3 L (39.0-53.0) % MCHC 30.8 L (31.0-37.0) g/dL BUN 38 H (9-20) mg/dL Creatinine 1.63 H (0.66-1.25) mg/dL Glucose 100 H (74-99) mg/dL Microbiology - Last 24 Hours (Table) 10/30/19 19:43 Blood Culture - Preliminary Blood No Growth after 48 hours
[2019-11-02] MEDS: SODIUM CHLORIDE 0.9% 1,000 ML IV SCH (10:49)
[2019-11-02] MEDS ORDERED: SODIUM CHLORIDE 0.9% 1,000 ML IV ONE (10:49)
--- NOTE | 2019-11-02 11:19 | PN ---
PROGRESS NOTE Patient is seen for followup for acute kidney injury. Patient was admitted to the hospital with the complaints of abdominal pain and chest pain. A CT of the abdomen shows severe urine retention, currently patient has an indwelling Palomares catheter. His serum creatinine had improved from 2.1-1.6 mg/dL. He has had good urine output. However, this morning, patient was noted to be lethargic. He is has been hypotensive with systolic blood pressure as low as in the 70s. The patient was being diuresed. His diuretics are currently on hold. He also received a dose of Lopressor this morning. Patient has received about 250 mL of fluid bolus. I will give him a liter of fluid bolus right now. Will continue to hold off on diuretics. If blood pressure remains low, patient will need to be transferred to the ICU. At this time, he is awake, comfortable, alert, oriented x3, not in any acute distress. No active bleeding noted. No fever. PHYSICAL EXAMINATION: This morning blood pressure 87/57, heart rate 84 per minute, he is afebrile. Examination of the heart S1, S2. Examination of the lungs, bilateral breath sounds are heard. Abdomen is soft, non-tender. Examination of the lower extremities shows no evidence of edema. 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 LABS: Show sodium 138, potassium 4.3, chloride 106, BUN 38, creatinine 1.63, hemoglobin 11.5 g/dL. BNP was 25,600. ASSESSMENT: 1. Acute kidney injury use and associated with obstructive uropathy urine retention currently with indwelling Palomares catheter with improvement in renal function. Creatinine is down to 1.6. Previous creatinine was 1.2 in March of 2019. Currently, there is an element of acute kidney injury associated with hypotension as well. I will hold off on diuretics. We also need to hold off on the Lopressor for now as blood pressure remains low. I will repeat another fluid bolus with 1 L. The white cell count is not significantly elevated. No ongoing fevers. 2. Hypotension, most likely hypovolemic; however, if patient remains hypotensive he may need to be started on pressors. The white cell count is not significantly elevated. No evidence of underlying significant urinary tract infection. Blood cultures are negative thus far from admission. 3. Cardiomyopathy, ejection fraction less than 20% with severely dilated left atrium. 4. Chest pain, atypical borderline troponins. 5. Chronic kidney disease stage III, with previous creatinine 1.2 in March of 2019. Etiology is nephrosclerosis. Patient has trace proteinuria. 6. Gastroesophageal reflux disease, maintained on Protonix. PLAN: Repeat another fluid bolus. DC IV Lasix. Repeat labs in a.m. MMODL / IJN: [id number] /
--- NOTE | 2019-11-02 11:49 | CT ---
EXAMINATION TYPE: CT brain wo con DATE OF EXAM: 11/02/2019 COMPARISON: 01/31/2017 HISTORY: IC bleed CT DLP: 1091.[address] of the brain was performed. The ventricles, basal cisterns and sulci overlying the cerebral convexities demonstrate mild enlargem ent. There is no evidence for intracranial hemorrhage or sulcal effacement. There is decreased attenuation about the periventricular white matter and deep white matter of both c erebral hemispheres, compatible with chronic small vessel ischemia. Differential diagnosis does inclu de demyelination. No mass effects are seen.No midline shift. Osseous calvarium is intact. If symptoms persist consider MRI. IMPRESSION: 1. Age related atrophic and chronic small vessel ischemic change without acute intracranial process s een at this time.
--- NOTE | 2019-11-02 14:37 | P.PN ---
Subjective Progress Note Date: 11/02/19 Principal diagnosis: 74-year-old that came in with multiple complaints patient doesn't give a good history patient mainly came in with abdominal pain he says diffuse abdominal pain has been going on for a few weeks and the patient will also coming of chest pain which appears to be atypical not associated with diaphoresis although patient had an episode of diaphoresis yesterday which is not related to his chest pain moderate amount of chest pain and abdominal pain. Patient says he peed air yesterday. Because of which IV obtain a CAT scan of the abdomen and pelvis without contrast as his creatinine is 2 I didn't see any obvious colovesical fistula although official read is still pending there is no seeping of Contrast into the bladder of the bladder is distended. Patient denied any dysuria denied any increased urinary frequency and the patient is also complaining of multiple bites from bedbugs. Patient chest pain is pretty vague nonspecific. Patient's EKG showing Q waves in the septal leads, cardiology was consulted patient has minimal irritation. Troponins which can be secondary to renal failure. Patient baseline creatinine around 1.2 now around 2. 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 11/01/2019 Patient is sitting up in the bed currently with 2 L of oxygen via nasal cannula as he has worked with physical therapy today and was up to the shower and became slightly short of breath. Discussed with nursing staff about weaning patient from oxygen as he does not normally use this. Patient states that abdominal pain has resolved status post receiving an indwelling Palomares. Patient is on IV diuretics in the form of Lasix twice daily and will continue at this time. Creatinine showed some slight improvement and is currently 1.67 and IV fluids h ave been turned down to 20 mL per hour. Patient is having a hard time with current diet as he has no teeth and so dysphasia 3 which is mostly soft foods was ordered for patient convenience. Currently patient denies any chest pain or palpitations. Patient is afebrile. Patient denies any nausea or vomiting and has been tolerating diet. 11/02/2019 Patient lying flat in bed in mild acute distress as he is hypotensive today with readings of 60 systolic. Patient is quite lethargic. Patient being given 1 L bolus of normal saline and being closely monitored. Patient currently remains on oxygen via nasal cannula at 2 L. Lasix has been discontinued. Nephrology is following. Creatinine slightly improved and is 1.63. Magnesium was 1.2 and will be replaced. Will repeat a.m. labs. CT of the head was done showing age- related atrophic and chronic small vessel ischemic changes without any acute intracranial process. Will continue to monitor closely. Objective - Vital Signs Vital signs: Vital Signs Temp 97.7 F 11/02/19 11:26 Pulse 69 11/02/19 11:44 Resp 16 11/02/19 11:44 BP 97/57 11/02/19 13:06 Pulse Ox 96 11/02/19 11:44 Intake & Output 11/01/19 11/02/19 11/02/19 18:59 06:59 18:59 Intake Total 2669.285 3573 Output Total 4650 1400 1500 Balance -3637.185 -1400 1100 Weight 69.7 kg 64.6 kg Intake: IV 2000 Sodium Chloride 0.9% 1, 2000 000 ml @ 999 mls/hr IV . Q1H1M [facility] Rx#:[id number] Intake, IV Titration 152.815 Amount Heparin Sod,Pork in 0.45% 152.815 NaCl 25,000 unit In 0.45 % NaCl 1 250ml.bag @ 12 UNITS/KG/HR 7.675 mls/hr IV .Q24H [facility] Rx#: [id number] Oral 860 600 Output: Urine 4650 1400 1500 Straight 950 Other: Voiding Method Indwelling Catheter Indwelling Catheter Indwelling Catheter # Voids 0 - Exam GENERAL: The patient is alert and oriented x3, not in mild acute distress. lethargic but responds to voice. Well developed, well nourished. HEENT: Pupils are round and equally reacting to light. EOMI. No scleral icterus. No conjunctival pallor. Normocephalic, atraumatic. No pharyngeal erythema. No thyromegaly. CARDIOVASCULAR: S1 and S2 present. No murmurs, rubs, or gallops. PULMONARY: Bilateral rhonchi no significant wheezing or crackles were appreciated ABDOMEN: Soft, nontender, nondistended, normoactive bowel sounds. No palpable organomegaly. MUSCULOSKELETAL: No joint swelling or deformity. EXTREMITIES: No cyanosis, clubbing, or pedal edema. NEUROLOGICAL: Gross neurological examination did not reveal any focal deficits. SKIN: No rashes. - Labs CBC & Chem 7: 11/02/19 05:27 11/02/19 05:27 Labs: Abnormal Lab Results - Last 24 Hours (Table) 11/02/19 11/02/19 11/02/19 Range/Units 05:27 05:27 05:27 RBC 4.03 L (4.30-5.90) m/uL Hgb 11.5 L (13.0-17.5) gm/dL Hct 37.3 L (39.0-53.0) % MCHC 30.8 L (31.0-37.0) g/dL BUN 38 H (9-20) mg/dL Creatinine 1.63 H (0.66-1.25) mg/dL Glucose 100 H (74-99) mg/dL Magnesium 1.2 L (1.6-2.3) mg/dL Microbiology - Last 24 Hours (Table) 10/30/19 19:43 Blood Culture - Preliminary Blood No Growth after 48 hours Assessment and Plan Assessment: -Abdominal pain etiology is not clear. Patient was started on Protonix possibility of gastritis or gastroenteritis. Awaiting official report from radiology department for a CAT scan of the abdomen. Does not appear to have any colovesical fistula this was a concern because of his complaints of urinating air. -Chest pain appeared to be atypical does have mildly elevated troponins and cardiology will evaluate the patient this troponin elevation can be secondary to renal failure -Hypotension -Acute renal failure on chronic kidney disease hold off on losartan and Motrin and the diuretics patient is only on Aldactone we'll repeat echocardiogram as patient had previous EF of around 25% for now will start him on IV fluids and repeat basic metabolic profile tomorrow. Creatinine slightly improved and is 1.63 -History of systolic dysfunction patient clinically does not appear to be in hea rt failure exacerbation although patient does have mild bilateral pleural effusions on the CAT scan of the abdomen does not have any elevated JVD and run have any BNP available patient actually appears to be mildly hypovolemic patient was started on IV fluids patient had here for further on 20% which may have improved with repeat echocardiogram -Mild elevation of troponins probably secondary to renal failure -Acute renal failure possibly a prerenal azotemia because of which are started him on IV fluids although. Etiology cannot be ruled out patient has a distended bladder, patient will be straight catheterized and will monitor for any urinary retention. An indwelling Palomares catheter was placed with good urine output. -Chronic kidney disease stage II -coronary artery disease -Hypertension -Gastroesophageal reflux disease
[2019-11-02] MEDS: MAGNESIUM SULFATE-D5W PMX 1 GM in DEXTROSE/WATER 1 100ML.BAG IVPB SCH ×2 (16:06→17:32)
[2019-11-02] MEDS: ATORVASTATIN 80 MG TAB PO SCH (16:06)
[2019-11-02 17:31] LABS: Hemoglobin A1C 5.5 % (4.0-6.0)
[2019-11-03] MEDS: TICAGRELOR 90 MG TAB PO SCH ×2 (05:46→17:22)
[2019-11-03] MEDS: LORATADINE 10 MG TAB PO SCH (05:47)
[2019-11-03] MEDS: METOPROLOL TARTRATE 25 MG TAB PO SCH (05:47)
[2019-11-03] MEDS: MULTIVITAMINS, THERA 1 EACH TAB PO SCH (05:47)
[2019-11-03] MEDS: PANTOPRAZOLE 40 MG TABLET PO SCH ×2 (05:47→17:22)
[2019-11-03] MEDS: ALPRAZolam 1 MG TAB PO PRN (05:48)
[2019-11-03 07:31] LABS: Basophils % (A) 0 %; Eosinophils # (A) 0.5 k/uL (0-0.7); Eosinophils % (A) 5 %; HCT 38.7 % (39.0-53.0); Hypochromasia Slight; Lymphocytes # (A) 1.6 k/uL (1.0-4.8); Lymphocytes % (A) 18 %; MCH 29.1 pg (25.0-35.0); MCV 93.9 fL (80.0-100.0); Mean Platelet Volume 9.3; Monocytes # (A) 0.5 k/uL (0-1.0); Monocytes % (A) 6 %; Neutrophils # (A) 6.3 k/uL (1.3-7.7); Neutrophils % (A) 70 %; Platelet Count 265 k/uL (150-450); RBC 4.12 m/uL (4.30-5.90); RDW 13.1 % (11.5-15.5); WBC 9.1 k/uL (3.8-10.6)
[2019-11-03 07:47] LABS: Calcium 9.3 mg/dL (8.4-10.2); Potassium 4.6 mmol/L (3.5-5.1)
[2019-11-03] MEDS ORDERED: ASPIRIN 81 MG PO SCH (09:00)
[2019-11-03 09:42] LABS: Magnesium 1.7 mg/dL (1.6-2.3)
--- NOTE | 2019-11-03 10:08 | PN ---
PROGRESS NOTE Patient is seen for followup for acute kidney injury. Yesterday patient's blood pressure was low. He was lethargic. He received about 2 L of fluid boluses, following which his blood pressure has stabilized. He continues to have good urine output. He has an indwelling Palomares catheter. We have about 6 L documented. I am not sure if that is accurate. PHYSICAL EXAMINATION: Today patient is comfortable. Blood pressure is 113/64, heart rate 96 per minute. He is afebrile. EXAMINATION OF THE HEART: S1 and S2. EXAMINATION OF LUNGS: Bilateral breath sounds are heard. ABDOMEN: Soft, non-tender. Examination of lower extremities shows no significant edema. [employer] exam is grossly intact. LABS: Sodium 142, potassium 4.6, serum creatinine down to 1.5, BUN 28. ASSESSMENT: 1. Acute kidney injury associated with obstructive uropathy, urine retention as well as hypotension, hypoperfusion, status post multiple fluid boluses yesterday. Serum creatinine is slightly better. It was as low as 1.2 in March of 2019. Continue with the Palomares catheter. Continue to maintain patient on IV fluids and encourage increased oral intake. No nephrotoxic agents on board. Continue off of diuretics. 2. Urine retention with indwelling Palomares catheter currently. 3. Chronic kidney disease, stage III, secondary to nephrosclerosis. Baseline creatinine 1.2. 4. Cardiomyopathy, ejection fraction less than 20%. 5. Hypotension which was hypovolemic, currently improved. PLAN: Encourage increased oral intake. Patient can likely be discharged tomorrow. Follow up with Urology as outpatient for urine retention. Add Flomax if blood pressure is better. MMODL / IJN: [id number] /
[2019-11-03] MEDS: SODIUM CHLORIDE 0.9% 1,000 ML IV SCH (11:17)
[2019-11-03] MEDS ORDERED: IPRATROPIUM-ALBUTEROL 3 ML NEB INHALATION PRN (13:09)
--- NOTE | 2019-11-03 16:19 | P.PN ---
Subjective 74-year-old that came in with multiple complaints patient doesn't give a good history patient mainly came in with abdominal pain he says diffuse abdominal pain has been going on for a few weeks and the patient will also coming of chest pain which appears to be atypical not associated with diaphoresis although patient had an episode of diaphoresis yesterday which is not related to his chest pain moderate amount of chest pain and abdominal pain. Patient says he peed air yesterday. Because of which IV obtain a CAT scan of the abdomen and pelvis without contrast as his creatinine is 2 I didn't see any obvious colovesical fistula although official read is still pending there is no seeping of Contrast into the bladder of the bladder is distended. Patient denied any dysuria denied any increased urinary frequency and the patient is also comp laining of multiple bites from bedbugs. Patient chest pain is pretty vague nonspecific. Patient's EKG showing Q waves in the septal leads, cardiology was consulted patient has minimal irritation. Troponins which can be secondary to renal failure. Patient baseline creatinine around 1.2 now around 2. 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 11/01/2019 Patient is sitting up in the bed currently with 2 L of oxygen via nasal cannula as he has worked with physical therapy today and was up to the shower and became slightly short of breath. Discussed with nursing staff about weaning patient from oxygen as he does not normally use this. Patient states that abdominal pain has resolved status post receiving an indwelling Palomares. Patient is on IV diuretics in the form of Lasix twice daily and will continue at this time. Creatinine showed some slight improvement and is currently 1.67 and IV fluids have been turned down to 20 mL per hour. Patient is having a hard time with current diet as he has no teeth and so dysphasia 3 which is mostly soft foods was ordered for patient convenience. Currently patient denies any chest pain or palpitations. Patient is afebrile. Patient denies any nausea or vomiting and has been tolerating diet. 11/02/2019 Patient lying flat in bed in mild acute distress as he is hypotensive today with readings of 60 systolic. Patient is quite lethargic. Patient being given 1 L bolus of normal saline and being closely monitored. Patient currently remains on oxygen via nasal cannula at 2 L. Lasix has been discontinued. Nephrology is following. Creatinine slightly improved and is 1.63. Magnesium was 1.2 and will be replaced. Will repeat a.m. labs. CT of the head was done showing age- related atrophic and chronic small vessel ischemic changes without any acute intracranial process. Will continue to monitor closely. 11/03/2019 Patient blood pressure is still low a bit because of which will continue to hold on diuretic therapy. The patient is clinically doing well patient probably need to be placed in a rehabilitation or long-term facility not sure if patient will be able to take care of himself patient does straight catheterize himself but the came in with significant urinary retention distention of bladder extending up to the mid abdomen, was very unkempt with bedbugs patient also takes care of his unsure whether he can take care of himself anymore. Patient wanted the Palomares catheter to come out but does continue to 40 catheter while he is here will let him do the straight And the see if he is able to do it appropriately. Constitutional: Denied any fatigue denied any fever. Cardio vascular: denied any chest pain, palpitations Gastrointestinal denied any nausea vomiting Pulmonary: Denied any shortness of breath cough Neurologic denied any new focal deficits All inpatient medications were reviewed and appropriate changes in these medications as dictated in the interval history and assessment and plan. Objective - Vital Signs Vital signs: Vital Signs Temp 98.3 F 11/03/19 08:00 Pulse 53 L 11/03/19 12:00 Resp 20 11/03/19 12:00 BP 100/64 11/03/19 12:00 Pulse Ox 93 L 11/03/19 12:00 Intake & Output 11/02/19 11/03/19 11/03/19 18:59 06:59 18:59 Intake Total 2600 100 240 Output Total 2200 0 Balance 400 100 240 Weight 65.4 kg Intake: IV 2000 100 Sodium Chloride 0.9% 1, 100 000 ml @ 20 mls/hr IV . Q24H [facility] Rx#:[id number] Sodium Chloride 0.9% 1, 1999 000 ml @ 999 mls/hr IV . Q1H1M [facility] Rx#:[id number] Oral 600 240 Output: Urine 2200 Stool 0 Other: Voiding Method Indwelling Catheter Indwelling Catheter Indwelling Catheter - Exam PHYSICAL EXAMINATION: GENERAL: The patient is alert and oriented x3, not in any acute distress. Well developed, well nourished. HEENT: Pupils are round and equally reacting to light. EOMI. No scleral icterus. No conjunctival pallor. Normocephalic, atraumatic. No pharyngeal erythema. No thyromegaly. CARDIOVASCULAR: S1 and S2 present. No murmurs, rubs, or gallops. PULMONARY: Chest is clear to auscultation, no wheezing or crackles. ABDOMEN: Soft, nontender, nondistended, normoactive bowel sounds. No palpable organomegaly. MUSCULOSKELETAL: No joint swelling or deformity. EXTREMITIES: No cyanosis, clubbing, or pedal edema. NEUROLOGICAL: Gross neurological examination did not reveal any focal deficits. SKIN: No rashes. - Labs CBC & Chem 7: 11/03/19 05:24 11/03/19 05:24 Labs: Abnormal Lab Results - Last 24 Hours (Table) 11/03/19 11/03/19 Range/Units 05:24 05:24 RBC 4.12 L (4.30-5.90) m/uL Hgb 12.0 L (13.0-17.5) gm/dL Hct 38.7 L (39.0-53.0) % BUN 28 H (9-20) mg/dL Creatinine 1.53 H (0.66-1.25) mg/dL Microbiology - Last 24 Hours (Table) 10/30/19 19:43 Blood Culture - Preliminary Blood No Growth after 72 hours Assessment and Plan Plan: -Abdominal pain on secondary to urinary retention which resolved at this time -Chest pain appeared to be atypical, minimal elevation is a secondary to renal failure no evidence of acute myocardial infarction -Acute renal failure on chronic kidney disease hold off on losartan and Motrin and the diuretics Congestive heart failure chronic systolic forms for near for 45% not in acute exacerbation -Mild elevation of troponins probably secondary to renal failure -Acute renal failure secondary to urinary retention which resolved at this time creatinine close to his baseline patient does have chronic kidney disease -Chronic kidney disease stage 3 -coronary artery disease #Hypertension -Gastroesophageal reflux disease
[2019-11-03] MEDS: ATORVASTATIN 80 MG TAB PO SCH (17:22)
[2019-11-03] MEDS: MAGNESIUM SULFATE-D5W PMX 1 GM in DEXTROSE/WATER 1 100ML.BAG IVPB SCH ×2 (17:22→18:37)
[2019-11-03] MEDS ORDERED: METOPROLOL TARTRATE 12.5 MG TAB PO SCH (17:30)
[2019-11-03] MEDS ORDERED: ALPRAZolam 1 MG TAB PO SCH (17:30)
--- NOTE | 2019-11-03 17:34 | P.PN ---
Subjective Progress Note Date: 11/03/19 This is a 74-year-old gentleman who was admitted to the hospital with dizziness, hypotension and abdominal pain. He was found to have obstructive uropathy and had a Palomares catheter. Patient was having significant urinary output. Patient became hypotensive. Patient's diuretics were held. His blood pressure is slightly better. He is feeling better. Denies any chest pain. He is known to have cardiomyopathy with ejection fraction 25%. He'll continue current medical therapy without any diuretics. We'll follow Objective - Vital Signs Vital signs: Vital Signs Temp 98.3 F 11/03/19 08:00 Pulse 88 11/03/19 16:00 Resp 20 11/03/19 16:00 BP 104/61 11/03/19 16:00 Pulse Ox 97 11/03/19 16:00 Intake & Output 11/02/19 11/03/19 11/03/19 18:59 06:59 18:59 Intake Total 2600 100 240 Output Total 2200 200 Balance 400 100 40 Weight 65.4 kg Intake: IV 2000 100 Sodium Chloride 0.9% 1, 100 000 ml @ 20 mls/hr IV . Q24H [facility] Rx#:[id number] Sodium Chloride 0.9% 1, 2000 000 ml @ 999 mls/hr IV . Q1H1M [facility] Rx#:[id number] Oral 600 240 Output: Urine 2200 200 Straight 100 Stool 0 Other: Voiding Method Indwelling Catheter Indwelling Catheter Indwelling Catheter - Exam GENERAL EXAM: Patient is alert and oriented and doesn't appear to be in any acute distress HEENT: Normocephalic. Normal reaction of pupils, equal size, normal range of extraocular motion. No erythema or exudates in the throat. NECK: No masses, no nuchal rigidity. CHEST: No chest wall deformity. LUNGS: Equal air entry with no crackles or wheeze. HEART: S1 and S2 normal with no audible mumurs or gallops. Regular rhythm, femorals equal on both sides.. ABDOMEN: No hepatosplenomegaly, normal bowel sounds, no guarding or rigidity. SKIN: No rashes CENTRAL NERVOUS SYSTEM: No focal deficits. EXTREMITIES: No cyanosis, clubbing or edema. - Labs CBC & Chem 7: 11/03/19 05:24 11/03/19 05:24 Labs: Abnormal Lab Results - Last 24 Hours (Table) 11/03/19 11/03/19 Range/Units 05:24 05:24 RBC 4.12 L (4.30-5.90) m/uL Hgb 12.0 L (13.0-17.5) gm/dL Hct 38.7 L (39.0-53.0) % BUN 28 H (9-20) mg/dL Creatinine 1.53 H (0.66-1.25) mg/dL Microbiology - Last 24 Hours (Table) 10/30/19 19:43 Blood Culture - Preliminary Blood No Growth after 72 hours Assessment and Plan (1) [place] (acute kidney injury) Current Visit: Yes Status: Acute Code(s): N17.9 - ACUTE KIDNEY FAILURE, UN SPECIFIED SNOMED Code(s): 67432285 (2) Ischemic cardiomyopathy Current Visit: Yes Status: Acute Code(s): I25.5 - ISCHEMIC CARDIOMYOPATHY SNOMED Code(s): 732512706 (3) Abdominal pain Current Visit: No Status: Acute Code(s): R10.9 - UNSPECIFIED ABDOMINAL PAIN SNOMED Code(s): 08588124 (4) CAD (coronary artery disease) Current Visit: No Status: Acute Code(s): I25.10 - ATHSCL HEART DISEASE OF [place] CORONARY ARTERY W/O ANG PCTRS SNOMED Code(s): 02072752 (5) COPD (chronic obstructive pulmonary disease) Current Visit: No Status: Acute Code(s): J44.9 - CHRONIC OBSTRUCTIVE PULMONARY DISEASE, UNSPECIFIED SNOMED Code(s): 01284186 Plan: Continue with current medical therapy. Hold diuretics and replace IV fluid if necessary. We'll follow
[2019-11-03 20:03] VITALS: BP 88/51; PULSE 85; RESP 18; TEMP 98.9
--- NOTE | 2019-11-04 11:29 | P.DS ---
Providers Date of admission: 10/30/19 19:01 Attending physician: Chelo Huerta Consults: 10/30/19 18:58 Consult Physician Routine Consulting Provider: Mark Hearn Consult Reason/Comments: Troponin elevation. Do you want consulting provider notified?: Yes 10/31/19 19:35 Consult Physician Routine Consulting Provider: Gemma Lane Consult Reason/Comments: renal failure Do you want consulting provider notified?: Yes Primary care physician: Dannie Urbina [facility] Course: Patient left against medical advise yesterday Patient Condition at Discharge: Stable Plan - Discharge Summary Discharge Rx Participant: No New Discharge Prescriptions: No Action ALPRAZolam 1 mg PO BID@0530,1730 Spironolactone 25 mg PO DAILY@0530 Omeprazole [PriLOSEC] 20 mg PO BID@0530,1730 Baclofen [Lioresal] 10 mg PO BID PRN PRN Reason: Muscle Spasm Nitroglycerin Sl Tabs [Nitrostat] 0.4 mg SUBLINGUAL Q5M PRN PRN Reason: Chest Pain Aspirin EC [Ecotrin Low Dose] 162 mg PO BID@0530,1730 Multivitamins, Thera [Multivitamin (formulary)] 1 tab PO DAILY@0530 Cetirizine HCl [Zyrtec] 10 mg PO DAILY@0530 Ibuprofen [Motrin] 800 mg PO TID PRN PRN Reason: Pain Ticagrelor [Brilinta] 90 mg PO BID@0530,1730 Metoprolol Tartrate [Lopressor] 25 mg PO BID@0530,1730 Losartan [Cozaar] 25 mg PO DAILY@0530 Atorvastatin Calcium [Lipitor] 80 mg PO HS@1730 Discharge Medication List ALPRAZolam 1 mg PO BID@0530,1730 07/19/16 [History] Omeprazole [PriLOSEC] 20 mg PO BID@0530,1730 07/19/16 [History] Spironolactone 25 mg PO DAILY@0530 07/19/16 [History] Aspirin EC [Ecotrin Low Dose] 162 mg PO BID@0530,1730 01/31/17 [History] Baclofen [Lioresal] 10 mg PO BID PRN 01/31/17 [History] Nitroglycerin Sl Tabs [Nitrostat] 0.4 mg SUBLINGUAL Q5M PRN 05/01/17 [History] Multivitamins, Thera [Multivitamin (formulary)] 1 tab PO DAILY@52902/16/17 [History] Atorvastatin Calcium [Lipitor] 80 mg PO HS@172910/30/19 [History] Cetirizine HCl [Zyrtec] 10 mg PO DAILY@52910/30/19 [History] Ibuprofen [Motrin] 800 mg PO TID PRN 10/30/19 [History] Losartan [Cozaar] 25 mg PO DAILY@52910/30/19 [History] Metoprolol Tartrate [Lopressor] 25 mg PO BID@529,172910/30/19 [History] Ticagrelor [Brilinta] 90 mg PO BID@529,172910/30/19 [History] Follow up Appointment(s)/Referral(s): Carlitos Pandey MD [Primary Care Provider] - 1-2 days Discharge Disposition: Left Against Medical Advice
== END 2019-11-03 23:12 | disposition left against medical advice (07) | DRG 683 ==
LOC: EC 16:02 → 3SCARD 19:01
PROVIDERS: ADMIT Internal Medicine; ATTEND Internal Medicine
DX: N17.9 Acute kidney failure, unspecified (principal); N13.8 Other obstructive and reflux uropathy; I13.0 Hypertensive heart and chronic kidney disease with heart failure and stage 1 through stage 4 chronic kidney disease, or unspecified chronic kidney disease; I50.22 Chronic systolic (congestive) heart failure; E78.5 Hyperlipidemia, unspecified; E83.42 Hypomagnesemia; E86.1 Hypovolemia; F17.200 Nicotine dependence, unspecified, uncomplicated; I25.10 Atherosclerotic heart disease of native coronary artery without angina pectoris; J44.9 Chronic obstructive pulmonary disease, unspecified; K21.9 Gastro-esophageal reflux disease without esophagitis; K57.30 Diverticulosis of large intestine without perforation or abscess without bleeding; I25.5 Ischemic cardiomyopathy; D35.02 Benign neoplasm of left adrenal gland; N32.0 Bladder-neck obstruction; I95.9 Hypotension, unspecified; M81.0 Age-related osteoporosis without current pathological fracture; N18.3 Chronic kidney disease, stage 3 (moderate); M19.90 Unspecified osteoarthritis, unspecified site; N40.1 Benign prostatic hyperplasia with lower urinary tract symptoms; R07.89 Other chest pain; Z79.02 Long term (current) use of antithrombotics/antiplatelets; Z79.82 Long term (current) use of aspirin; Z79.899 Other long term (current) drug therapy; Z82.49 Family history of ischemic heart disease and other diseases of the circulatory system; Z95.5 Presence of coronary angioplasty implant and graft; I25.2 Old myocardial infarction; Z87.440 Personal history of urinary (tract) infections; Z98.890 Other specified postprocedural states; Z90.49 Acquired absence of other specified parts of digestive tract; Z98.49 Cataract extraction status, unspecified eye; Z82.3 Family history of stroke
CPT/HCPCS: 36415; 70450; 71046; 74018; 74176; 80048; 80053; 80061; 81001; 83036; 83605; 83735; 83880; 84484; 85025; 85610; 85730; 87040; 93005; 93306; 96361; 96365; 96366; 96375; 96376; 99285

== ENCOUNTER 2020-01-26 20:43 | Inpatient (IN) | payer MEDICARE ==
--- NOTE | 2020-01-26 21:33 | ED ---
General Adult HPI - General Chief complaint: Abdominal Pain Stated complaint: Abdominal pain Time Seen by Provider: 01/26/20 21:23 Source: patient, EMS Mode of arrival: EMS Limitations: no limitations - History of Present Illness Initial comments: Patient presents to the ED by ambulance for evaluation with multiple complaints. Patient states that he has had intermittent abdominal pain for the past 2 weeks or so, which he states is worse when ambulating. Patient is also complaining of having bilateral lower extremity swelling for the past several weeks. Patient also admits to having a chronic cough and mild dyspnea. Patient states that his abdominal pain has made him feel like he was going to "pass out" a few times, but he denies losing consciousness or having a syncopal episode. Patient denies trauma or injury, fever or chills, headache, focal neuro deficit, chest pain, hemoptysis, palpitations, nausea or vomiting, diarrhea or constipation, bloody or melanotic stool, dysuria/hematuria/urinary frequency/urinary symptoms, leg pain, or any other symptoms or complaints. - Related Data Home Medications Medication Instructions Recorded Confirmed ALPRAZolam 1 mg PO BID@529,172907/19/16 10/30/19 Omeprazole [PriLOSEC] 20 mg PO BID@529,172907/19/16 10/30/19 Spironolactone 25 mg PO DAILY@52907/19/16 10/30/19 Aspirin EC [Ecotrin Low Dose] 162 mg PO BID@529,172901/31/17 10/30/19 Baclofen [Lioresal] 10 mg PO BID PRN 01/31/17 10/30/19 Nitroglycerin Sl Tabs [Nitrostat] 0.4 mg SUBLINGUAL Q5M PRN 01/31/17 10/30/19 Multivitamins, Thera [Multivitamin 1 tab PO DAILY@52902/16/17 10/30/19 (formulary)] Atorvastatin Calcium [Lipitor] 80 mg PO HS@172910/30/19 10/30/19 Cetirizine HCl [Zyrtec] 10 mg PO DAILY@52910/30/19 10/30/19 Ibuprofen [Motrin] 800 mg PO TID PRN 10/30/19 10/30/19 Losartan [Cozaar] 25 mg PO DAILY@0530 10/30/19 10/30/19 Metoprolol Tartrate [Lopressor] 25 mg PO BID@0530,1730 10/30/19 10/30/19 Ticagrelor [Brilinta] 90 mg PO BID@0530,1730 10/30/19 10/30/19 Allergies Allergy/AdvReac Type Severity Reaction Status Date / Time No Known Allergies Allergy Verified 01/26/20 20:53 Review of Systems ROS Statement: Those systems with pertinent positive or pertinent negative responses have been documented in the HPI. ROS Other: All systems not noted in ROS Statement are negative. Past Medical History Past Medical History: Coronary Artery Disease (CAD), Chest Pain / Angina, Heart Failure, GERD/Reflux, Hyperlipidemia, Hypertension, Liver Disease, Myocardial Infarction (ND), Osteoarthritis (OA), Pneumonia Additional Past Medical History / Comment(s): 04/02/16 UTI WITH SEPSIS, STATES HE SELF CATHS chronic back PAIN ddd, osteoporosis , PT stated he pulls his own teeth. Last Myocardial Infarction Date:: 2015 History of Any Multi-Drug Resistant Organisms: None Reported Past Surgical History: Adenoidectomy, Heart Catheterization, Hernia Repair, Tonsillectomy Additional Past Surgical History / Comment(s): COLONOSCOPY,CATARACTS. recent heart cath -has triple vessel disease-no sx as of yet. Past Anesthesia/Blood Transfusion Reactions: No Reported Reaction Date of Last Stent Placement:: 2015 Past Psychological History: No Psychological Hx Reported Smoking Status: Current every day smoker Past Alcohol Use History: None Reported, Daily Past Drug Use History: None Reported - Past Family History Mother Family Medical History: Myocardial Infarction (ND) Additional Family Medical History / Comment(s): Mother had a ND in her 80s and . Brother(s) Family Medical History: CVA/TIA Sister(s) Family Medical History: CVA/TIA Father Family Medical History: No Reported History Additional Family Medical History / Comment(s): Father when pt was young from a drowning. General Exam Limitations: no limitations General appearance: alert, in no apparent distress Head exam: Present: atraumatic, normocephalic Eye exam: Present: normal appearance, PERRL, EOMI ENT exam: Present: mucous membranes dry Neck exam: Present: other (Trachea is in midline) Respiratory exam: Present: normal lung sounds bilaterally. Absent: respiratory distress, wheezes, rales, rhonchi Cardiovascular Exam: Present: regular rate, normal rhythm, normal heart sounds, other (Normal radial pulses bilaterally) GI/Abdominal exam: Present: soft. Absent: distended, tenderness, guarding Extremities exam: Present: other (Negative Homans sign bilaterally). Absent: tenderness, pedal edema, calf tenderness Neurological exam: Present: alert, oriented X3, CN II-XII intact. Absent: motor sensory deficit Skin exam: Present: warm, dry, intact, normal color Course Vital Signs 01/26/20 01/26/20 20:49 21:30 Temperature 97.8 F Pulse Rate 95 87 Respiratory 20 16 Rate Blood Pressure 134/83 125/82 O2 Sat by Pulse 100 100 Oximetry - Reevaluation(s) Reevaluation #1: 01/26/20 22:44 Case, H&P, test results and ED management thus far were discussed with Dr. Huerta. He accepts hospital admission. He requests that I add on a CRP, LDH and ferritin level to the patient's labs. He recommends heparin anticoagulation and cardiology consultation given the patient's elevated troponin. He has no further recommendations at this time. 01/26/20 22:47 Patient remains alert and breathing comfortably. Patient's abdomen remains soft and completely nontender on exam. Patient denies development of any new symptoms while in the ED. Patient is aware of his test results, and he agrees with hospital admission at this time. EKG Findings - EKG Comments: EKG Findings:: Sinus rhythm with first-degree AV block, no ectopy, ventricular rate of 93 bpm, WA interval of 212 ms, normal QRS duration, normal QT interval, leftward axis, low voltage QRS, nonspecific T-wave abnormality Medical Decision Making - Medical Decision Making Patient is afebrile and without leukocytosis. Patient's chest x-ray does not show a focal opacity. Patient is noted to have acute on chronic renal insufficiency and hyperkalemia. Patient's EKG does not show peaked T waves or QRS widening. Patient was treated with IV fluids and medications to lower his potassium level in the ED. Patient's Covid study is negative. Patient's abdomen is soft and completely nontender on examination. I do not suspect an acute abdomen or surgical abdominal process. Patient's troponin is elevated, but he denies having chest pain and he has no ST or T-wave abnormality on EKG. Patient was given a dose of aspirin and was started on IV heparin drip in the ED. Will admit the patient to the hospital for further evaluation, treatment and monitoring. Dr. Huerta has accepted hospital admission. - Lab Data Result diagrams: 01/26/20 21:01/26/20 21:01 Lab Results 01/26/20 01/26/20 01/26/20 Range/Units 21: 21: 21: WBC 8.1 (3.8-10.6) k/uL RBC 3.66 L (4.30-5.90) m/uL Hgb 9.7 L (13.0-17.5) gm/dL Hct 32.0 L (39.0-53.0) % MCV 87.3 (80.0-100.0) fL MCH 26.6 (25.0-35.0) pg MCHC 30.4 L (31.0-37.0) g/dL RDW 16.0 H (11.5-15.5) % Plt Count 282 (150-450) k/uL Neutrophils % 75 % Lymphocytes % 18 % Monocytes % 5 % Eosinophils % 1 % Basophils % 0 % Neutrophils # 6.0 (1.3-7.7) k/uL Lymphocytes # 1.4 (1.0-4.8) k/uL Monocytes # 0.4 (0-1.0) k/uL Eosinophils # 0.1 (0-0.7) k/uL Basophils # 0.0 (0-0.2) k/uL Hypochromasia Marked Anisocytosis Slight PT 12.4 H (9.0-12.0) sec INR 1.2 H (<1.2) APTT 23.6 (22.0-30.0) sec Sodium 138 (137-145) mmol/L Potassium 6.3 H* (3.5-5.1) mmol/L Chloride 106 (98-107) mmol/L Carbon Dioxide 17 L (22-30) mmol/L Anion Gap 15 mmol/L BUN 37 H (9-20) mg/dL Creatinine 2.28 H (0.66-1.25) mg/dL Est GFR (CKD-EPI)AfAm 31 (>60 ml/min/1.73 sqM) Est GFR (CKD-EPI)NonAf 27 (>60 ml/min/1.73 sqM) Glucose 103 H (74-99) mg/dL POC Glucose (mg/dL) (75-99) mg/dL POC Glu Machine Binder Stripper ID Calcium 9.8 (8.4-10.2) mg/dL Magnesium 1.1 L (1.6-2.3) mg/dL Total Bilirubin 0.9 (0.2-1.3) mg/dL AST 56 (17-59) U/L ALT 36 (4-49) U/L Alkaline Phosphatase 95 (38-126) U/L Lactate Dehydrogenase (313-618) U/L Troponin I (0.000-0.034) ng/mL C-Reactive Protein (<10.0) mg/L Total Protein 8.4 H (6.3-8.2) g/dL Albumin 4.5 (3.5-5.0) g/dL Amylase 141 H (30-110) U/L Lipase 105 (23-300) U/L Coronavirus (PCR) (Not Detectd) 01/26/20 01/26/20 01/26/20 Range/Units 21:01 21:01 21:36 WBC (3.8-10.6) k/uL RBC (4.30-5.90) m/uL Hgb (13.0-17.5) gm/dL Hct (39.0-53.0) % MCV (80.0-100.0) fL MCH (25.0-35.0) pg MCHC (31.0-37.0) g/dL RDW (11.5-15.5) % Plt Count (150-450) k/uL Neutrophils % % Lymphocytes % % Monocytes % % Eosinophils % % Basophils % % Neutrophils # (1.3-7.7) k/uL Lymphocytes # (1.0-4.8) k/uL Monocytes # (0-1.0) k/uL Eosinophils # (0-0.7) k/uL Basophils # (0-0.2) k/uL Hypochromasia Anisocytosis PT (9.0-12.0) sec INR (<1.2) APTT (22.0-30.0) sec Sodium (137-145) mmol/L Potassium (3.5-5.1) mmol/L Chloride (98-107) mmol/L Carbon Dioxide (22-30) mmol/L Anion Gap mmol/L BUN (9-20) mg/dL Creatinine (0.66-1.25) mg/dL Est GFR (CKD-EPI)AfAm (>60 ml/min/1.73 sqM) Est GFR (CKD-EPI)NonAf (>60 ml/min/1.73 sqM) Glucose (74-99) mg/dL POC Glucose (mg/dL) (75-99) mg/dL POC Glu Machine Binder Stripper ID Calcium (8.4-10.2) mg/dL Magnesium (1.6-2.3) mg/dL Total Bilirubin (0.2-1.3) mg/dL AST (17-59) U/L ALT (4-49) U/L Alkaline Phosphatase (38-126) U/L Lactate Dehydrogenase 712 H (313-618) U/L Troponin I 2.150 H* (0.000-0.034) ng/mL C-Reactive Protein 5.3 (<10.0) mg/L Total Protein (6.3-8.2) g/dL Albumin (3.5-5.0) g/dL Amylase (30-110) U/L Lipase (23-300) U/L Coronavirus (PCR) Not Detected (Not Detectd) 01/26/20 Range/Units 22:31 WBC (3.8-10.6) k/uL RBC (4.30-5.90) m/uL Hgb (13.0-17.5) gm/dL Hct (39.0-53.0) % MCV (80.0-100.0) fL MCH (25.0-35.0) pg MCHC (31.0-37.0) g/dL RDW (11.5-15.5) % Plt Count (150-450) k/uL Neutrophils % % Lymphocytes % % Monocytes % % Eosinophils % % Basophils % % Neutrophils # (1.3-7.7) k/uL Lymphocytes # (1.0-4.8) k/uL Monocytes # (0-1.0) k/uL Eosinophils # (0-0.7) k/uL Basophils # (0-0.2) k/uL Hypochromasia Anisocytosis PT (9.0-12.0) sec INR (<1.2) APTT (22.0-30.0) sec Sodium (137-145) mmol/L Potassium (3.5-5.1) mmol/L Chloride (98-107) mmol/L Carbon Dioxide (22-30) mmol/L Anion Gap mmol/L BUN (9-20) mg/dL Creatinine (0.66-1.25) mg/dL Est GFR (CKD-EPI)AfAm (>60 ml/min/1.73 sqM) Est GFR (CKD-EPI)NonAf (>60 ml/min/1.73 sqM) Glucose (74-99) mg/dL POC Glucose (mg/dL) 108 H (75-99) mg/dL POC Glu Machine Binder Stripper ID Nacho Vargas Calcium (8.4-10.2) mg/dL Magnesium (1.6-2.3) mg/dL Total Bilirubin (0.2-1.3) mg/dL AST (17-59) U/L ALT (4-49) U/L Alkaline Phosphatase (38-126) U/L Lactate Dehydrogenase (313-618) U/L Troponin I (0.000-0.034) ng/mL C-Reactive Protein (<10.0) mg/L Total Protein (6.3-8.2) g/dL Albumin (3.5-5.0) g/dL Amylase (30-110) U/L Lipase (23-300) U/L Coronavirus (PCR) (Not Detectd) - Radiology Data Radiology results: report reviewed (Chest x-ray shows: COPD and cardiomegaly; interstitium is slightly coarsened; tiny bilateral pleural effusions) Disposition Clinical Impression: Acute renal insufficiency, Hyperkalemia, Abdominal pain, Elevated troponin Disposition: ADMITTED IP TO THIS HOSP Condition: Stable Is patient prescribed a controlled substance at d/c from ED?: No Referrals: Carlitos Pandey MD [Primary Care Provider] - 1-2 days Time of Disposition: 22:48
--- NOTE | 2020-01-26 21:51 | XR ---
EXAMINATION TYPE: XR chest 2V DATE OF EXAM: 01/26/2020 COMPARISON: 10/30/2019 TECHNIQUE: PA and lateral views submitted. HISTORY: Shortness of breath FINDINGS: Heart is enlarged and there is a diffuse hyperinflation. Coarsened interstitium noted. Suspect tiny b ilateral pleural effusions. Degenerative change of the spine. Correlate for previous stenting of the coronary arteries. Otherwise consider atherosclerotic changes. Arthropathy of the shoulder. IMPRESSION: 1. COPD and cardiomegaly. Interstitium is slightly coarsened which could represent a mild interstitia l pneumonitis or venous congestion. There are tiny bilateral pleural effusions. Correlate clinically.
[2020-01-26 21:54] LABS: Anisocytosis Slight; Basophils % (A) 0 %; Eosinophils # (A) 0.1 k/uL (0-0.7); Eosinophils % (A) 1 %; HGB 9.7 gm/dL (13.0-17.5); Hypochromasia Marked; Lymphocytes # (A) 1.4 k/uL (1.0-4.8); Lymphocytes % (A) 18 %; MCH 26.6 pg (25.0-35.0); MCHC 30.4 g/dL (31.0-37.0); MCV 87.3 fL (80.0-100.0); Monocytes # (A) 0.4 k/uL (0-1.0); Monocytes % (A) 5 %; Neutrophils % (A) 75 %; Platelet Count 282 k/uL (150-450); RBC 3.66 m/uL (4.30-5.90); WBC 8.1 k/uL (3.8-10.6)
[2020-01-26 21:58] LABS: Albumin 4.5 g/dL (3.5-5.0); Calcium 9.8 mg/dL (8.4-10.2); Magnesium 1.1 mg/dL (1.6-2.3); Total Bilirubin 0.9 mg/dL (0.2-1.3); Total Protein 8.4 g/dL (6.3-8.2)
[2020-01-26 22:02] LABS: INR 1.2 (<1.2); Partial Thromboplastin Time 23.6 sec (22.0-30.0); Prothrombin Time 12.4 sec (9.0-12.0)
[2020-01-26 22:12] LABS: Potassium 6.3 mmol/L (3.5-5.1)
[2020-01-26] MEDS ORDERED: SODIUM CHLORIDE 0.9% 1,000 ML IV ONE (22:16)
[2020-01-26] MEDS ORDERED: INSULIN REGULAR 100 UNIT/ML VIAL IV ONE (22:19)
[2020-01-26] MEDS ORDERED: DEXTROSE 50% SYRINGE 50 ML IVP STA (22:19)
[2020-01-26] MEDS ORDERED: SODIUM BICARB 8.4% 50 ML SYR (1 MEQ/ML) IV STA (22:20)
[2020-01-26] MEDS ORDERED: SODIUM POLYSTYRENE SULFONATE 15 GM/60 ML BOTTLE PO STA (22:21)
[2020-01-26 22:34] LABS: Glucose,Whole Blood 108 mg/dL (75-99)
[2020-01-26 22:37] LABS: C Reactive Protein 5.3 mg/L (<10.0)
[2020-01-26] MEDS ORDERED: ASPIRIN 81 MG PO STA (22:40)
[2020-01-26] MEDS ORDERED: HEPARIN SODIUM,PORCINE 5,000 UNIT/ML 1 ML VIAL IV PRN (22:45)
[2020-01-26] MEDS ORDERED: HEPARIN SODIUM,PORCINE 5,000 UNIT/ML 1 ML VIAL IV ONE (22:45)
[2020-01-26] MEDS: HEPARIN SOD,PORK IN 0.45% NACL 25,000 UNIT in 0.45% NACL 1 250ML.BAG IV SCH (22:50)
[2020-01-27] MEDS ORDERED: LOSARTAN 25 MG TAB PO SCH (05:30)
[2020-01-27] MEDS ORDERED: METOPROLOL TARTRATE 25 MG TAB PO SCH (05:30)
[2020-01-27 05:40] LABS: Basophils % (A) 0 %; Eosinophils # (A) 0.1 k/uL (0-0.7); Eosinophils % (A) 1 %; HCT 29.9 % (39.0-53.0); HGB 9.4 gm/dL (13.0-17.5); Hypochromasia Marked; Lymphocytes % (A) 24 %; MCH 26.8 pg (25.0-35.0); MCHC 31.6 g/dL (31.0-37.0); MCV 84.9 fL (80.0-100.0); Mean Platelet Volume 7.9; Monocytes # (A) 0.4 k/uL (0-1.0); Monocytes % (A) 5 %; Neutrophils # (A) 5.7 k/uL (1.3-7.7); Neutrophils % (A) 68 %; Platelet Count 271 k/uL (150-450); RBC 3.52 m/uL (4.30-5.90); RDW 15.8 % (11.5-15.5); WBC 8.5 k/uL (3.8-10.6)
[2020-01-27] MEDS: SODIUM CHLORIDE 0.9% 1,000 ML IV SCH (06:10)
[2020-01-27] MEDS: TICAGRELOR 90 MG TAB PO SCH ×2 (06:24→16:38)
[2020-01-27 06:36] LABS: Calcium 9.2 mg/dL (8.4-10.2); Potassium 5.4 mmol/L (3.5-5.1); Total Bilirubin 0.8 mg/dL (0.2-1.3); Total Protein 7.4 g/dL (6.3-8.2)
[2020-01-27] MEDS ORDERED: NITROGLYCERIN SL TABS 0.4 MG TAB SUBLINGUAL PRN (09:40)
--- NOTE | 2020-01-27 10:41 | P.HPIM ---
History of Present Illness This is a pleasant 74 years old male with past medical history of coronary artery disease, chronic systolic heart failure, chronic back pain, heart failure, COPD, GERD, hyperlipidemia, hypertension, osteoarthritis, and history of self catheterization. Is patient of Dr. Glover. Patient states he comes because of exertional dyspnea that when ever he works few steps for exam to the restroom he got really wanted he felt dizzy and he has to grab the chair and sit down. This is been going on for a few days associated with chest pain on the left side nonradiating, nonspecific about 7/10 in severity. Also patient has bilateral leg swelling. Also is complaining of from lower abdominal pain, nonspecific nonradiating moderate in severity, and patient states his abdominal pain one of the reason he came to the hospital Patient denies nausea vomiting, no change in bowel habits. He self catheterizes himself at home He smokes cigarettes and 1 pack last 3 days for him, he denies alcohol or illicit drugs He was been using ibuprofen for generalized body ache and patient is counseled to avoid ibuprofen and he agrees Vitas looks stable except for mild tachycardia 101-110 and mild tachypnea 20-24. He is saturating 99% on 4 L oxygen via nasal cannula Labs showing WBC of 8.5K, hemoglobin 9.4, platelet normal. So that was normal, potassium elevated 6.3 and 5.3, creatinine elevated 2.2, with baseline 1.5-1.6. Liver enzymes slightly elevated, troponin is 2.1 and 1.8 on the presentation, coronavirus nondetected. EKG: Shows sinus rhythm at [address]-T changes, low voltage. Chest x-ray showing cardiomegaly with COPD with possible pulmonary congestion versus pneumonitis On admission he got 1 L of normal saline, therapy for his hyperkalemia and aspirated, patient also started on heparin drip with cardiology consult Review of Systems CONSTITUTIONAL: No fever, no malaise, no fatigue. HEENT: No recent visual problems or hearing problems. Denied any sore throat. CARDIOVASCULAR: No orthopnea, PND, no palpitations, no syncope. PULMONARY: No shortness of breath, no cough, no hemoptysis. GASTROINTESTINAL: No diarrhea, no nausea, no vomiting, no abdominal pain. Normoactive bowel sounds. NEUROLOGICAL: No headaches, no weakness, no numbness. HEMATOLOGICAL: Denies any bleeding or petechiae. GENITOURINARY: Denies any burning micturition, frequency, or urgency. MUSCULOSKELETAL/RHEUMATOLOGICAL: Denies any joint pain, swelling, or any muscle pain. ENDOCRINE: Denies any polyuria or polydipsia. Past Medical History Past Medical History: Coronary Artery Disease (CAD), Chest Pain / Angina, Heart Failure, COPD, GERD/Reflux, Hyperlipidemia, Hypertension, Liver Disease, Myocardial Infarction (NM), Osteoarthritis (OA), Pneumonia Additional Past Medical History / Comment(s): 04/02/16 UTI WITH SEPSIS, STATES HE SELF CATHS chronic back PAIN ddd, osteoporosis , PT stated he pulls his own teeth. 01/21/2016 Patient states he self caths intermittently when needed, is [place] bilaterally, edentulous and has 3 stents. Last Myocardial Infarction Date:: 2015 History of Any Multi-Drug Resistant Organisms: None Reported Past Surgical History: Adenoidectomy, Heart Catheterization, Hernia Repair, Tonsillectomy Additional Past Surgical History / Comment(s): COLONOSCOPY,CATARACTS. recent heart cath -has triple vessel disease-no sx as of yet. Past Anesthesia/Blood Transfusion Reactions: No Reported Reaction Date of Last Stent Placement:: 2015 Past Psychological History: No Psychological Hx Reported Additional Psychological History / Comment(s): Pt resides with his significant other. He uses a walker to ambulate. He had an electric scooter but it broke. Pt states he either walks or takes a cab to appointments. Pt's home has bedbugs. 01/21/2020: Patient at this time states that he resides alone. Uses a cane at home or his scooter. Smoking Status: Current every day smoker Past Alcohol Use History: None Reported, Daily Additional Past Alcohol Use History / Comment(s): Pt started smoking in 1951 and is down to 0.5 ppd. Pt states he used to drink several beers a day but has not drank in several months. Past Drug Use History: None Reported - Past Family History Mother Family Medical History: Myocardial Infarction (NM) Additional Family Medical History / Comment(s): Mother had a NM in her 80s and . Brother(s) Family Medical History: CVA/TIA Sister(s) Family Medical History: CVA/TIA Father Family Medical History: No Reported History Additional Family Medical History / Comment(s): Father when pt was young from a drowning. Medications and Allergies Home Medications Medication Instructions Recorded Confirmed Type ALPRAZolam 1 mg PO BID@30,172907/19/16 01/27/20 History Omeprazole [PriLOSEC] 20 mg PO BID@30,172907/19/16 01/27/20 History Spironolactone 25 mg PO DAILY@52907/19/16 01/27/20 History Aspirin EC [Ecotrin Low Dose] 162 mg PO BID@529,172901/31/17 01/27/20 History Baclofen [Lioresal] 10 mg PO BID PRN 01/31/17 01/27/20 History Nitroglycerin Sl Tabs [Nitrostat] 0.4 mg SUBLINGUAL Q5M PRN 01/31/17 01/27/20 History Multivitamins, Thera [Multivitamin 1 tab PO DAILY@52902/16/17 01/27/20 History (formulary)] Atorvastatin Calcium [Lipitor] 80 mg PO HS@172910/30/19 01/27/20 History Cetirizine HCl [Zyrtec] 10 mg PO DAILY@52910/30/19 01/27/20 History Ibuprofen [Motrin] 800 mg PO TID PRN 10/30/19 01/27/20 History Losartan [Cozaar] 25 mg PO DAILY@52910/30/19 01/27/20 History Metoprolol Tartrate [Lopressor] 25 mg PO BID@529,172910/30/19 01/27/20 History Ticagrelor [Brilinta] 90 mg PO BID@30,172910/30/19 01/27/20 History Tamsulosin [Flomax] 0.4 mg PO DAILY@52901/27/20 01/27/20 History Allergies Allergy/AdvReac Type Severity Reaction Status Date / Time No Known Allergies Allergy Verified 01/26/20 20:53 Physical Exam Vitals: Vital Signs Temp Pulse Pulse Resp BP BP Pulse Ox 01/27/20 08:00 98.5 F 101 H 24 108/72 99 01/27/20 04:00 98.2 F 110 H 20 117/88 99 01/27/20 00:00 24 01/26/20 23:47 98 F 102 H 28 H 134/81 99 01/26/20 22:30 98 F 85 19 128/90 100 01/26/20 22:00 90 17 127/87 100 01/26/20 21:30 87 16 125/82 100 01/26/20 20:49 97.8 F 95 20 134/83 100 Intake and Output 01/26/20 01/27/20 01/27/20 22:59 06:59 14:59 Intake Total 62.738 224 Balance 62.738 224 Intake: IV 224 Heparin Sod,Pork in 0.45% 64 NaCl 25,000 unit In 0.45 % NaCl 1 250ml.bag @ 12 UNITS/KG/HR 8.219 mls/hr IV .Q24H TI Rx#: [id number] Sodium Chloride 0.9% 1, 160 000 ml @ 80 mls/hr IV . [id number] TI Rx#:[id number] Intake, IV Titration 62.738 Amount Heparin Sod,Pork in 0.45% 62.738 NaCl 25,000 unit In 0.45 % NaCl 1 250ml.bag @ 12 UNITS/KG/HR 8.219 mls/hr IV .Q24H TI Rx#: [id number] Oral 0 Other: Voiding Method Toilet Self-Catheterization Weight 68.492 kg 73.8 kg GENERAL: The patient is alert and oriented x3, not in any acute distress. Well developed, well nourished. HEENT: Pupils are round and equally reacting to light. EOMI. No scleral icterus. No conjunctival pallor. Normocephalic, atraumatic. No pharyngeal erythema. No thyromegaly. CARDIOVASCULAR: S1 and S2 present. No murmurs, rubs, or gallops. -PULMONARY: Chest is clear to auscultation, no wheezing. Bilateral basal 50 -ABDOMEN: Soft, suprapubic tenderness with no rebound tenderness or guarding, nondistended, normoactive bowel sounds. No palpable organomegaly. MUSCULOSKELETAL: No joint swelling or deformity. -EXTREMITIES: No cyanosis, clubbing. Bilateral pedal edema. NEUROLOGICAL: Gross neurological examination did not reveal any focal deficits. SKIN: No rashes. No petechiae Results CBC & Chem 7: 01/27/20 05:28 01/27/20 05:28 Labs: Abnormal Lab Results - Last 24 Hours (Table) 01/26/20 01/26/20 01/26/20 Range/Units 21:01 21: 21:01 RBC 3.66 L (4.30-5.90) m/uL Hgb 9.7 L (13.0-17.5) gm/dL Hct 32.0 L (39.0-53.0) % MCHC 30.4 L (31.0-37.0) g/dL RDW 16.0 H (11.5-15.5) % PT 12.4 H (9.0-12.0) sec INR 1.2 H (<1.2) APTT (22.0-30.0) sec Potassium 6.3 H* (3.5-5.1) mmol/L Chloride (98-107) mmol/L Carbon Dioxide 17 L (22-30) mmol/L BUN 37 H (9-20) mg/dL Creatinine 2.28 H (0.66-1.25) mg/dL Glucose 103 H (74-99) mg/dL POC Glucose (mg/dL) (75-99) mg/dL Magnesium 1.1 L (1.6-2.3) mg/dL AST (17-59) U/L ALT (4-49) U/L Lactate Dehydrogenase (313-618) U/L Troponin I (0.000-0.034) ng/mL Total Protein 8.4 H (6.3-8.2) g/dL Amylase 141 H (30-110) U/L 01/26/20 01/26/20 01/26/20 Range/Units 21:01 21:01 22:31 RBC (4.30-5.90) m/uL Hgb (13.0-17.5) gm/dL Hct (39.0-53.0) % MCHC (31.0-37.0) g/dL RDW (11.5-15.5) % PT (9.0-12.0) sec INR (<1.2) APTT (22.0-30.0) sec Potassium (3.5-5.1) mmol/L Chloride (98-107) mmol/L Carbon Dioxide (22-30) mmol/L BUN (9-20) mg/dL Creatinine (0.66-1.25) mg/dL Glucose (74-99) mg/dL POC Glucose (mg/dL) 108 H (75-99) mg/dL Magnesium (1.6-2.3) mg/dL AST (17-59) U/L ALT (4-49) U/L Lactate Dehydrogenase 712 H (313-618) U/L Troponin I 2.150 H* (0.000-0.034) ng/mL Total Protein (6.3-8.2) g/dL Amylase (30-110) U/L 01/27/20 01/27/20 01/27/20 Range/Units 03:46 05:28 05:28 RBC 3.52 L (4.30-5.90) m/uL Hgb 9.4 L (13.0-17.5) gm/dL Hct 29.9 L (39.0-53.0) % MCHC (31.0-37.0) g/dL RDW 15.8 H (11.5-15.5) % PT (9.0-12.0) sec INR (<1.2) APTT 56.2 H (22.0-30.0) sec Potassium (3.5-5.1) mmol/L Chloride (98-107) mmol/L Carbon Dioxide (22-30) mmol/L BUN (9-20) mg/dL Creatinine (0.66-1.25) mg/dL Glucose (74-99) mg/dL POC Glucose (mg/dL) (75-99) mg/dL Magnesium (1.6-2.3) mg/dL AST (17-59) U/L ALT (4-49) U/L Lactate Dehydrogenase (313-618) U/L Troponin I 1.860 H* (0.000-0.034) ng/mL Total Protein (6.3-8.2) g/dL Amylase (30-110) U/L 01/27/20 Range/Units 05:28 RBC (4.30-5.90) m/uL Hgb (13.0-17.5) gm/dL Hct (39.0-53.0) % MCHC (31.0-37.0) g/dL RDW (11.5-15.5) % PT (9.0-12.0) sec INR (<1.2) APTT (22.0-30.0) sec Potassium 5.4 H (3.5-5.1) mmol/L Chloride 110 H (98-107) mmol/L Carbon Dioxide 17 L (22-30) mmol/L BUN 41 H (9-20) mg/dL Creatinine 2.26 H (0.66-1.25) mg/dL Glucose (74-99) mg/dL POC Glucose (mg/dL) (75-99) mg/dL Magnesium (1.6-2.3) mg/dL AST 67 H (17-59) U/L ALT 50 H (4-49) U/L Lactate Dehydrogenase (313-618) U/L Troponin I (0.000-0.034) ng/mL Total Protein (6.3-8.2) g/dL Amylase (30-110) U/L Thrombosis Risk Factor Assmnt - Choose All That Apply Each Factor Represents 1 point: Abnormal pulmonary function (COPD), Swollen legs (current) Each Risk Factor Represents 3 Points: Age 75 years or older Thrombosis Risk Factor Assessment Total Risk Factor Score: 5 Thrombosis Risk Factor Assessment Level: High Risk Assessment and Plan Assessment: Elevated troponin, suspicious for acute non-STEMI Acute and chronic congestive heart failure, ejection fraction less than 20% Acute hypoxic respiratory failure secondary to above Acute kidney injury on chronic kidney disease, mostly cardiorenal syndrome, possible NSAID use urinary retention, patient has history of self- catheterization Nicotine dependence Hyperkalemia Chronic kidney disease stage III Hypertension Hyperlipidemia History of self catheterization History of coronary artery disease Chronic back pain Heart failure COPD GERD Plan: This is a pleasant 74 years old male who presents with non-STEMI, CHF, AK I. Continue with diuretic, continue with heparin drip and antiplatelet therapy. Cardiology and nephrology consult. Hold Aldactone. Continue with statin. Check bladder scan. Avoid nephrotoxic including avoiding NSAIDs like ibuprofen. We'll do CT of the abdomen and pelvis. Patient counseled to quit smoking and nicotine patch ordered Labs and medication were reviewed.. Continue same treatment. Continue with symptomatic treatment. Resume home medication. Monitor lytes and vitals. DVT and GI prophylaxis. Further recommendations of the clinical course of the patient DVT prophylaxis: heparin GI Prophylaxis: Pepcid Prognosis is guarded
--- NOTE | 2020-01-27 11:25 | CT ---
EXAMINATION TYPE: CT abdomen pelvis wo con DATE OF EXAM: 01/27/2020 COMPARISON: Previous study dated 10/31/2019. HISTORY: Generalized pain CT DLP: 512.2 mGycm Automated exposure control for dose reduction was used. FINDINGS: There are bilateral effusions, greater on the right than the left. Right-sided effusion may have decreased slightly from previous. There is associated bibasilar atelectasis, worse on the right than the left. There is no pericardial fluid. Heart size upper limits of normal. There are vascular calcifications throughout the study including the coronary arteries. Within the abdomen, the liver, spleen and gallbladder are normal. There is fullness in the left adrenal gland. The right adrenal gland appears normal. There is a 2 cm exophytic lesion arising in the lower pole of the left kidney. This is likely a cyst. This could BE confirmed with ultrasound. There is no evidence of hydronephrosis or nephrolithiasis. Limited views of the pancreas appear normal. There is no significant retroperitoneal, iliac or inguinal adenopathy. There is a Palomares catheter within the bladder. The bladder wall appears thickened. There are scattered diverticula within the sigmoid: Without radiographic evidence of diverticulitis. Much of the left side of the colon is collapsed making assessment of the bowel wall difficult. Small bowel loops are normal in caliber. No free air and no free fluid is seen. The patient's anasarca has improved. There is facet arthropathy, degenerative disc disease and hypertrophic spondylosis within the spine. IMPRESSION: 1. CONTINUING PLEURAL EFFUSIONS. THE AMOUNT OF FLUID ON THE RIGHT MAY HAVE DECREASED SLIGHTLY. 2. IMPROVEMENT IN THE PATIENT'S ANASARCA. 3. THICKENING OF THE BLADDER WALL MAY REFLECT CHRONIC CYSTITIS. 4. MINIMAL LEFT-SIDED DIVERTICULOSIS. 5. COLLAPSE OF MUCH OF THE LEFT SIDE OF THE COLON MAKES IT DIFFICULT TO ASSESS COLONIC WALL THICKENIN G. PLEASE CORRELATE TO EXCLUDE COLITIS. 6. FULLNESS OF THE LEFT ADRENAL GLAND. 7. DEGENERATIVE CHANGES WITHIN THE SPINE.
[2020-01-27 11:28] LABS: Appearance,Urine Clear (Clear); Bacteria,Urine Rare /hpf; Bilirubin,Urine Negative (Negative); Blood,Urine Negative (Negative); Color,Urine Yellow; Glucose,Urine (UA) Negative (Negative); Hyaline Casts,Urine 9 /lpf (0-2); Ketones,Urine 1+ (Negative); Leukocyte Esterase,Urine Large (Negative); Mucus,Urine Rare /hpf; Nitrite,Urine Negative (Negative); PH, Urine 5.5 (5.0-8.0); Protein,Urine Trace (Negative); RBC,Urine 1 /hpf (0-5); Specific Gravity,Urine 1.018 (1.001-1.035); Urobilinogen,Urine <2.0 mg/dL (<2.0); WBC,Urine 15 /hpf (0-5)
[2020-01-27] MEDS: FUROSEMIDE 10 MG/ML 4 ML VIAL IV SCH ×2 (12:38→21:40)
[2020-01-27] MEDS: ATORVASTATIN 80 MG TAB PO SCH ×2 (16:30→16:38)
[2020-01-27] MEDS: METOPROLOL TARTRATE 50 MG TAB PO SCH (16:38)
--- NOTE | 2020-01-27 17:18 | P.CRDCN ---
History of Present Illness History of present illness: This is Dr. Hou dictating a consult on this patient The patient was interviewed and examined by me IMPRESSION / ASSESSMENT: Abnormal cardiac enzymes Sinus rhythm with frequent PVCs and nonsustained ventricular tachycardia. Hyperkalemia Known coronary artery disease chronic heart failure Hypertension Dyslipidemia PLAN: Increase beta blockers Stop losartan in view of hyperkalemia Maximize beta blockers Continue aspirin and atorvastatin Continue IV Lasix Monitor renal function Continue brilinta HPI Patient has been complaining of increasing shortness of breath with minimal exertion He also gets dizzy quite often has to grab a chair and sit down in the last few days He also complains of abdominal pain which is one of the reasons why he came to the hospital but he did not have any nausea vomiting or change in bowel habits ROS: No fever chills or rigors, no cough, phlegm or expectoration, no nausea, vomiting or diarrhea, no hematuria, dysuria, no musculoskeletal complaints, no strokes or seizures, no skin lesions. EXAMINATION: Blood pressure 108/72 mmHg pulse rate 9200, afebrile 98.5F Alert and oriented S and S2 irregular no murmurs Breath sounds clear no rhonchi no crackles Abdomen is soft no rebound mild tenderness No lower extremity edema REVIEW OF LABS, ECG & MEDICAL DATA Sodium 142 potassium 5.4 chloride 110 BUN 41 creatinine 2.26 AST 67, ALT 50 Troponin 1.8 1.6 Past Medical History Past Medical History: Coronary Artery Disease (CAD), Chest Pain / Angina, Heart Failure, COPD, GERD/Reflux, Hyperlipidemia, Hypertension, Liver Disease, Myocardial Infarction ([place]), Osteoarthritis (OA), Pneumonia Additional Past Medical History / Comment(s): 04/02/16 UTI WITH SEPSIS, STATES HE SELF CATHS chronic back PAIN ddd, osteoporosis , PT stated he pulls his own teeth. 01/21/2016 Patient states he self caths intermittently when needed, is [place] bilaterally, edentulous and has 3 stents. Last Myocardial Infarction Date:: 2015 History of Any Multi-Drug Resistant Organisms: None Reported Past Surgical History: Adenoidectomy, Heart Catheterization, Hernia Repair, Tonsillectomy Additional Past Surgical History / Comment(s): COLONOSCOPY,CATARACTS. recent he art cath -has triple vessel disease-no sx as of yet. Past Anesthesia/Blood Transfusion Reactions: No Reported Reaction Date of Last Stent Placement:: 2015 Past Psychological History: No Psychological Hx Reported Additional Psychological History / Comment(s): Pt resides with his significant other. He uses a walker to ambulate. He had an electric scooter but it broke. Pt states he either walks or takes a cab to appointments. Pt's home has bedbugs. 01/21/2020: Patient at this time states that he resides alone. Uses a cane at home or his scooter. Smoking Status: Current every day smoker Past Alcohol Use History: None Reported, Daily Additional Past Alcohol Use History / Comment(s): Pt started smoking in 1951 and is down to 0.5 ppd. Pt states he used to drink several beers a day but has not drank in several months. Past Drug Use History: None Reported - Past Family History Mother Family Medical History: Myocardial Infarction (OR) Additional Family Medical History / Comment(s): Mother had a [place] in her 80s and . Brother(s) Family Medical History: CVA/TIA Sister(s) Family Medical History: CVA/TIA Father Family Medical History: No Reported History Additional Family Medical History / Comment(s): Father when pt was young from a drowning. Medications and Allergies Home Medications Medication Instructions Recorded Confirmed Type ALPRAZolam 1 mg PO BID@529,172907/19/16 01/27/20 History Omeprazole [PriLOSEC] 20 mg PO BID@529,172907/19/16 01/27/20 History Spironolactone 25 mg PO DAILY@52907/19/16 01/27/20 History Aspirin EC [Ecotrin Low Dose] 162 mg PO BID@529,172901/31/17 01/27/20 History Baclofen [Lioresal] 10 mg PO BID PRN 01/31/17 01/27/20 History Nitroglycerin Sl Tabs [Nitrostat] 0.4 mg SUBLINGUAL Q5M PRN 01/31/17 01/27/20 History Multivitamins, Thera [Multivitamin 1 tab PO DAILY@52902/16/17 01/27/20 History (formulary)] Atorvastatin Calcium [Lipitor] 80 mg PO HS@172910/30/19 01/27/20 History Cetirizine HCl [Zyrtec] 10 mg PO DAILY@52910/30/19 01/27/20 History Ibuprofen [Motrin] 800 mg PO TID PRN 10/30/19 01/27/20 History Losartan [Cozaar] 25 mg PO DAILY@52910/30/19 01/27/20 History Metoprolol Tartrate [Lopressor] 25 mg PO BID@529,172910/30/19 01/27/20 History Ticagrelor [Brilinta] 90 mg PO BID@529,172910/30/19 01/27/20 History Tamsulosin [Flomax] 0.4 mg PO DAILY@52901/27/20 01/27/20 History Allergies Allergy/AdvReac Type Severity Reaction Status Date / Time No Known Allergies Allergy Verified 01/26/20 20:53 Physical Exam Vitals: Vital Signs Temp Pulse Pulse Resp BP BP Pulse Ox 01/27/20 16:00 98.3 F 100 20 117/67 99 01/27/20 12:00 97.8 F 99 20 109/77 100 01/27/20 08:00 98.5 F 101 H 24 108/72 99 01/27/20 04:00 98.2 F 110 H 20 117/88 99 01/27/20 00:00 24 01/26/20 23:47 98 F 102 H 28 H 134/81 99 01/26/20 22:30 98 F 85 19 128/90 100 01/26/20 22:00 90 17 127/87 100 01/26/20 21:30 87 16 125/82 100 01/26/20 20:49 97.8 F 95 20 134/83 100 Intake and Output 01/27/20 01/27/20 01/27/20 06:59 14:59 22:59 Intake Total 62.738 224 224 Balance 62.738 224 224 Intake: IV 224 224 Heparin Sod,Pork in 0.45% 64 64 NaCl 25,000 unit In 0.45 % NaCl 1 250ml.bag @ 12 UNITS/KG/HR 8.219 mls/hr IV .Q24H TI Rx#: [id number] Sodium Chloride 0.9% 1, 160 160 000 ml @ 20 mls/hr IV . Q24H TI Rx#:[id number] Intake, IV Titration 62.738 Amount Heparin Sod,Pork in 0.45% 62.738 NaCl 25,000 unit In 0.45 % NaCl 1 250ml.bag @ 12 UNITS/KG/HR 8.219 mls/hr IV .Q24H [facility] Rx#: [id number] Oral 0 Other: Voiding Method Toilet Self-Catheterization Self-Catheterization Weight 73.8 kg Results 01/27/20 05:28 01/27/20 05:28 Cardiac Enzymes 01/26/20 01/26/20 01/26/20 Range/Units 21: 21: 21:01 AST 56 (17-59) U/L Lactate Dehydrogenase 712 H (313-618) U/L Troponin I 2.150 H* (0.000-0.034) ng/mL 01/27/20 01/27/20 01/27/20 Range/Units 03:46 05:28 09:08 AST 67 H (17-59) U/L Lactate Dehydrogenase (313-618) U/L Troponin I 1.860 H* 1.590 H* (0.000-0.034) ng/mL Coagulation 01/26/20 01/27/20 Range/Units 21:01 05:28 PT 12.4 H (9.0-12.0) sec APTT 23.6 56.2 H (22.0-30.0) sec CBC 01/26/20 01/27/20 Range/Units 21:01 05:28 WBC 8.1 8.5 (3.8-10.6) k/uL RBC 3.66 L 3.52 L (4.30-5.90) m/uL Hgb 9.7 L 9.4 L (13.0-17.5) gm/dL Hct 32.0 L 29.9 L (39.0-53.0) % Plt Count 282 271 (150-450) k/uL Comprehensive Metabolic Panel 01/26/20 01/27/20 Range/Units 21:01 05:28 Sodium 138 142 (137-145) mmol/L Potassium 6.3 H* 5.4 H (3.5-5.1) mmol/L Chloride 106 110 H (98-107) mmol/L Carbon Dioxide 17 L 17 L (22-30) mmol/L BUN 37 H 41 H (9-20) mg/dL Creatinine 2.28 H 2.26 H (0.66-1.25) mg/dL Glucose 103 H 84 (74-99) mg/dL Calcium 9.8 9.2 (8.4-10.2) mg/dL AST 56 67 H (17-59) U/L ALT 36 50 H (4-49) U/L Alkaline Phosphatase 95 90 (38-126) U/L Total Protein 8.4 H 7.4 (6.3-8.2) g/dL Albumin 4.5 4.0 (3.5-5.0) g/dL Current Medications Generic Name Dose Route Start Last Admin Trade Name Freq PRN Reason Stop Dose Admin Alprazolam 0.25 mg 01/27/20 17:03 Xanax PO BID PRN Anxiety Atorvastatin Calcium 80 mg 01/27/20 17:30 01/27/20 16:38 Lipitor PO 80 mg HS@1730 TI Administration Furosemide 40 mg 01/27/20 09:45 01/27/20 12:38 Lasix IV 40 mg Q12HR TI Administration Heparin Sodium (Porcine) 0 unit 01/26/20 22:45 Heparin IV PER PROTOCOL PRN Low PTT Protocol Heparin Sodium/Sodium Chloride 250 mls @ 8.219 mls/hr 01/26/20 22:45 01/27/20 06:28 25,000 unit/ Sodium Chloride IV 12 units/kg/hr .Q24H TI 8.219 mls/hr Titration Protocol 12 UNITS/KG/HR Sodium Chloride 1,000 mls @ 20 mls/hr 01/26/20 23:00 01/27/20 06:10 Saline 0.9% IV 80 mls/hr .Q24H TI Administration Ceftriaxone Sodium 1 gm/ 50 mls @ 100 mls/hr 01/27/20 15:30 01/27/20 16:38 Sodium Chloride IVPB 100 mls/hr Q24HR TI Administration Metoprolol Tartrate 50 mg 01/27/20 17:30 01/27/20 16:38 Lopressor PO 50 mg BID@0530,1730 TI Administration Nitroglycerin 0.4 mg 01/27/20 09:40 Nitrostat SUBLINGUAL Q5M PRN Chest Pain Tamsulosin HCl 0.4 mg 01/28/20 05:30 Flomax PO DAILY@0530 [facility] Ticagrelor 90 mg 01/27/20 05:30 01/27/20 16:38 Brilinta PO 90 mg BID@7617,8830 [facility] Administration Intake and Output 01/27/20 01/27/20 01/27/20 06:59 14:59 22:59 Intake Total 62.738 224 224 Balance 62.738 224 224 Intake: IV 224 224 Heparin Sod,Pork in 0.45% 64 64 NaCl 25,000 unit In 0.45 % NaCl 1 250ml.bag @ 12 UNITS/KG/HR 8.219 mls/hr IV .Q24H [facility] Rx#: [id number] Sodium Chloride 0.9% 1, 160 160 000 ml @ 20 mls/hr IV . Q24H [facility] Rx#:[id number] Intake, IV Titration 62.738 Amount Heparin Sod,Pork in 0.45% 62.738 NaCl 25,000 unit In 0.45 % NaCl 1 250ml.bag @ 12 UNITS/KG/HR 8.219 mls/hr IV .Q24H [facility] Rx#: [id number] Oral 0 Other: Voiding Method Toilet Self-Catheterization Self-Catheterization Weight 73.8 kg 01/27/20 05:28 01/27/20 05:28
[2020-01-27] MEDS ORDERED: ALPRAZolam 0.25 MG TAB PO PRN (17:30)
[2020-01-27] MEDS: HEPARIN SOD,PORK IN 0.45% NACL 25,000 UNIT in 0.45% NACL 1 250ML.BAG IV SCH (21:39)
[2020-01-27] MEDS: ALPRAZolam 0.25 MG TAB PO PRN (21:40)
[2020-01-28] MEDS: SODIUM CHLORIDE 0.9% 1,000 ML IV SCH ×2 (00:46→11:47)
[2020-01-28] MEDS: METOPROLOL TARTRATE 50 MG TAB PO SCH ×2 (06:11→17:54)
[2020-01-28] MEDS: TICAGRELOR 90 MG TAB PO SCH ×2 (06:11→17:54)
[2020-01-28] MEDS: TAMSULOSIN 0.4 MG CAP.ER.24H PO SCH (06:11)
[2020-01-28 07:06] LABS: Anisocytosis Slight; Basophils % (A) 0 %; Eosinophils # (A) 0.2 k/uL (0-0.7); Eosinophils % (A) 2 %; HCT 30.4 % (39.0-53.0); HGB 9.9 gm/dL (13.0-17.5); Hypochromasia Slight; Lymphocytes # (A) 1.8 k/uL (1.0-4.8); Lymphocytes % (A) 20 %; MCH 27.1 pg (25.0-35.0); MCHC 32.5 g/dL (31.0-37.0); MCV 83.4 fL (80.0-100.0); Mean Platelet Volume 8.5; Monocytes # (A) 0.5 k/uL (0-1.0); Monocytes % (A) 6 %; Neutrophils # (A) 6.4 k/uL (1.3-7.7); Neutrophils % (A) 70 %; Platelet Count 277 k/uL (150-450); RBC 3.64 m/uL (4.30-5.90); RDW 16.1 % (11.5-15.5); WBC 9.2 k/uL (3.8-10.6)
[2020-01-28] MEDS: FUROSEMIDE 10 MG/ML 4 ML VIAL IV SCH ×2 (09:37→21:31)
[2020-01-28] MEDS: MAGNESIUM SULFATE-D5W PMX 1 GM in DEXTROSE/WATER 1 100ML.BAG IVPB SCH ×4 (09:37→17:53)
[2020-01-28 10:26] LABS: Potassium 4.5 mmol/L (3.5-5.1)
--- NOTE | 2020-01-28 10:54 | P.NPCON ---
History of Present Illness - Reason for Consult acute renal failure, chronic renal failure - History of Present Illness Reason for consultation: Acute kidney injury on chronic kidney disease History of present illness: Patient is a 74-year-old male seen in renal consultation for acute kidney injury on chronic kidney disease. Patient has chronic kidney disease stage III with baseline creatinine in the range of 1.2-1.5. Etiology is nephrosclerosis. Patient presented to the hospital with dyspnea and abdominal pain. CAT scan of the abdomen and pelvis revealed bilateral pleural effusions and a cyst on the left kidney. He is currently maintained on IV Lasix 40 mg twice daily. He has a Palomares catheter in place. Urine output 2.5 L in the last 24 hours. Patient states that the edema in his lower extremities is improving. He has been having intermittent episodes of chest pain. He does admit to taking ibuprofen twice a day for over a year now. No history of diabetes. No hematuria or dysuria. No family history of renal disease. Oral intake is fair. No vomiting or diarrhea. Patient is afebrile. Coronavirus testing was negative. Vital signs are stable. General: The patient appeared well nourished and normally developed. HEENT: Head exam is unremarkable. Neck is without jugular venous distension. LUNGS: Lungs are clear to auscultation and percussion. Breath sounds decreased. HEART: Rate and Rhythm are regular. ABDOMEN: Nontender. No distention noted. EXTREMITITES: 1+ edema. Past Medical History Past Medical History: Coronary Artery Disease (CAD), Chest Pain / Angina, Heart Failure, COPD, GERD/Reflux, Hyperlipidemia, Hypertension, Liver Disease, Myocardial Infarction ([place]), Osteoarthritis (OA), Pneumonia Additional Past Medical History / Comment(s): 04/02/16 UTI WITH SEPSIS, STATES HE SELF CATHS chronic back PAIN ddd, osteoporosis , PT stated he pulls his own teeth. 01/21/2016 Patient states he self caths intermittently when needed, is [place] bilaterally, edentulous and has 3 stents. Last Myocardial Infarction Date:: 2015 History of Any Multi-Drug Resistant Organisms: None Reported Past Surgical History: Adenoidectomy, Heart Catheterization, Hernia Repair, Tonsillectomy Additional Past Surgical History / Comment(s): COLONOSCOPY,CATARACTS. recent heart cath -has triple vessel disease-no sx as of yet. Past Anesthesia/Blood Transfusion Reactions: No Reported Reaction Date of Last Stent Placement:: 2015 Past Psychological History: No Psychological Hx Reported Additional Psychological History / Comment(s): Pt resides with his significant other. He uses a walker to ambulate. He had an electric scooter but it broke. Pt states he either walks or takes a cab to appointments. Pt's home has bedbugs. 01/21/2020: Patient at this time states that he resides alone. Uses a cane at home or his scooter. Smoking Status: Current every day smoker Past Alcohol Use History: None Reported, Daily Additional Past Alcohol Use History / Comment(s): Pt started smoking in 1 and is down to 0.5 ppd. Pt states he used to drink several beers a day but has not drank in several months. Past Drug Use History: None Reported - Past Family History Mother Family Medical History: Myocardial Infarction ([place]) Additional Family Medical History / Comment(s): Mother had a [place] in her 80s and . Brother(s) Family Medical History: CVA/TIA Sister(s) Family Medical History: CVA/TIA Father Family Medical History: No Reported History Additional Family Medical History / Comment(s): Father when pt was young from a drowning. Medications and Allergies Home Medications Medication Instructions Recorded Confirmed Type ALPRAZolam 1 mg PO BID@0530,17307/19/16 01/27/20 History Omeprazole [PriLOSEC] 20 mg PO BID@0530,172907/19/16 01/27/20 History Spironolactone 25 mg PO DAILY@0507/19/16 01/27/20 History Aspirin EC [Ecotrin Low Dose] 162 mg PO BID@0530,17301/31/17 01/27/20 History Baclofen [Lioresal] 10 mg PO BID PRN 01/31/17 01/27/20 History Nitroglycerin Sl Tabs [Nitrostat] 0.4 mg SUBLINGUAL Q5M PRN 01/31/17 01/27/20 History Multivitamins, Thera [Multivitamin 1 tab PO DAILY@0530 02/16/17 01/27/20 History (formulary)] Atorvastatin Calcium [Lipitor] 80 mg PO HS@172910/30/19 01/27/20 History Cetirizine HCl [Zyrtec] 10 mg PO DAILY@52910/30/19 01/27/20 History Ibuprofen [Motrin] 800 mg PO TID PRN 10/30/19 01/27/20 History Losartan [Cozaar] 25 mg PO DAILY@52910/30/19 01/27/20 History Metoprolol Tartrate [Lopressor] 25 mg PO BID@529,172910/30/19 01/27/20 History Ticagrelor [Brilinta] 90 mg PO BID@529,172910/30/19 01/27/20 History Tamsulosin [Flomax] 0.4 mg PO DAILY@52901/27/20 01/27/20 History Allergies Allergy/AdvReac Type Severity Reaction Status Date / Time No Known Allergies Allergy Verified 01/26/20 20:53 Physical Exam Vitals: Vital Signs Temp Pulse Resp BP Pulse Ox 01/28/20 04:00 97.8 F 89 17 120/72 99 01/28/20 00:00 93 17 117/82 99 01/27/20 20:00 98.3 F 77 17 98/64 100 01/27/20 16:00 98.3 F 100 20 117/67 99 01/27/20 12:00 97.8 F 99 20 109/77 100 Intake and Output 01/27/20 01/28/20 01/28/20 22:59 06:59 14:59 Intake Total 468.792 74.245 240 Output Total 1475 2520 Balance -1006.208 -2445.755 240 Intake: IV 224 Heparin Sod,Pork in 0.45% 64 NaCl 25,000 unit In 0.45 % NaCl 1 250ml.bag @ 12 UNITS/KG/HR 8.219 mls/hr IV .Q24H [facility] Rx#: [id number] Sodium Chloride 0.9% 1, 160 000 ml @ 20 mls/hr IV . Q24H [facility] Rx#:[id number] Intake, IV Titration 124.792 74.245 Amount Heparin Sod,Pork in 0.45% 124.792 74.245 NaCl 25,000 unit In 0.45 % NaCl 1 250ml.bag @ 12 UNITS/KG/HR 8.219 mls/hr IV .Q24H [facility] Rx#: [id number] Oral 120 240 Output: Urine 2565 2520 Other: Voiding Method Indwelling Catheter Indwelling Catheter # Bowel Movements 1 Weight 73 kg Results - Lab Results Most recent lab results Calcium 9.0 mg/dL (8.4-10.2) 01/28/20 05:40 Magnesium 1.0 mg/dL (1.6-2.3) L 01/28/20 05:40 01/28/20 05:40 01/28/20 05:40 Assessment and Plan Plan: Assessment: 1. Acute kidney injury secondary to ATN secondary to cardiorenal syndrome. Trace proteinuria on UA. No hydronephrosis noted on kidney ultrasound. 2. Chronic kidney disease stage III with baseline creatinine in the range of 1.2-1.5. Etiology is nephrosclerosis. 3. Volume overload with pleural effusions. 4. Left kidney cyst. 5. Severe hypomagnesemia from diuresis. 6. Metabolic acidosis secondary to acute kidney injury. Better. 7. Acute on chronic systolic CHF with ejection fraction of less than 20% with moderate mitral and tricuspid regurgitation. 8. Severe pulmonary hypertension. Plan: Maintain IV Lasix 40 mg twice daily. Magnesium to be replaced over 12 hours for better absorption. Check kidney ultrasound. Avoid nephrotoxins. Continue to monitor renal function and urine output. Thank you for the completion. I will continue to follow the patient with you during his hospital stay.
[2020-01-28 10:59] LABS: Ferritin 20.3 ng/mL (22.0-322.0)
[2020-01-28] MEDS: ALPRAZolam 0.25 MG TAB PO PRN ×2 (11:46→21:31)
--- NOTE | 2020-01-28 12:14 | P.PN ---
Subjective 69-year-old male came in with acute hypoxic respiratory failure secondary to CHF exacerbation and renal failure secondary to cardiorenal syndrome or pedal azotemia from heart failure.. She had EF of 20% with mitral and tricuspid regurgitation chronic kidney disease stage III with baseline creatinine of around 1.2-1.5 and patient was admitted his creatinine went up to 2.5. Patient is presently on 3 L of oxygen. Patient does have severe pulmonary hypertension as well Constitutional: Denied any fatigue denied any fever. Cardio vascular: denied any chest pain, palpitations Gastrointestinal denied any nausea vomiting Pulmonary: Still significantly short of breath Neurologic denied any new focal deficits All inpatient medications were reviewed and appropriate changes in these medications as dictated in the interval history and assessment and plan. Objective - Vital Signs Vital signs: Vital Signs Temp 97.8 F 01/28/20 04:00 Pulse 89 01/28/20 04:00 Resp 17 01/28/20 04:00 BP 120/72 01/28/20 04:00 Pulse Ox 99 01/28/20 04:00 Intake & Output 01/27/20 01/28/20 01/28/20 18:59 06:59 18:59 Intake Total 568 199.037 240 Output Total 1475 2520 Balance -907 -2320.963 240 Weight 73 kg Intake: IV 448 Heparin Sod,Pork in 0.45% 128 NaCl 25,000 unit In 0.45 % NaCl 1 250ml.bag @ 12 UNITS/KG/HR 8.219 mls/hr IV .Q24H [facility] Rx#: [id number] Sodium Chloride 0.9% 1, 320 000 ml @ 20 mls/hr IV . Q24H [facility] Rx#:[id number] Intake, IV Titration 199.037 Amount Heparin Sod,Pork in 0.45% 199.037 NaCl 25,000 unit In 0.45 % NaCl 1 250ml.bag @ 12 UNITS/KG/HR 8.219 mls/hr IV .Q24H [facility] Rx#: [id number] Oral 120 240 Output: Urine 1475 2520 Other: Voiding Method Indwelling Catheter Indwelling Catheter # Bowel Movements 1 - Exam PHYSICAL EXAMINATION: GENERAL: The patient is alert and oriented x3, not in any acute distress. Well developed, well nourished. HEENT: Pupils are round and equally reacting to light. EOMI. No scleral icterus. No conjunctival pallor. Normocephalic, atraumatic. No pharyngeal erythema. No thyromegaly. CARDIOVASCULAR: S1 and S2 present. No murmurs, rubs, or gallops. Elevated JVD PULMONARY: Crackles in bilateral lower lung lutz ABDOMEN: Soft, nontender, nondistended, normoactive bowel sounds. No palpable organomegaly. MUSCULOSKELETAL: No joint swelling or deformity. EXTREMITIES: No cyanosis, clubbing, or pedal edema. NEUROLOGICAL: Gross neurological examination did not reveal any focal deficits. SKIN: No rashes. - Labs CBC & Chem 7: 01/28/20 05:40 01/28/20 05:40 Labs: Abnormal Lab Results - Last 24 Hours (Table) 01/26/20 01/28/20 01/28/20 Range/Units 21:01 05:40 05:40 RBC 3.64 L (4.30-5.90) m/uL Hgb 9.9 L (13.0-17.5) gm/dL Hct 30.4 L (39.0-53.0) % RDW 16.1 H (11.5-15.5) % APTT 41.0 H (22.0-30.0) sec BUN (9-20) mg/dL Creatinine (0.66-1.25) mg/dL Magnesium (1.6-2.3) mg/dL Ferritin 20.3 L (22.0-322.0) ng/mL 01/28/20 01/28/20 Range/Units 05:40 05:40 RBC (4.30-5.90) m/uL Hgb (13.0-17.5) gm/dL Hct (39.0-53.0) % RDW (11.5-15.5) % APTT (22.0-30.0) sec BUN 52 H (9-20) mg/dL Creatinine 2.32 H (0.66-1.25) mg/dL Magnesium 1.0 L (1.6-2.3) mg/dL Ferritin (22.0-322.0) ng/mL Microbiology - Last 24 Hours (Table) 01/27/20 10:30 Urine Culture - Preliminary Urine,Voided Assessment and Plan Plan: -Acute hypoxic respiratory failure secondary to CHF exacerbation patient is a of 20%, systolic dysfunction with acute exacerbation continue with IV Lasix -Acute renal failure on chronic kidney disease stage 3-4 acute renal failure secondary to cardiorenal syndrome or pedal azotemia from heart failure continue with Lasix and monitor his kidney function overall prognosis is reported -Elevated troponin type II non-ST elevation microinfarction cardiology evaluated the patient, patient is presently on IV heparin which will be continued -She doesn't have any symptoms of UTI patient probably has a symptom any bacteria patient self catheterizes IV antibiotics will be discontinued Upon chronic kidney disease stage III secondary to nephrosclerosis from hypertension -Hypokalemia -Hyperlipidemia -Coronary artery disease with ischemic myopathy -Chronic low back pain -COPD without any acute exacerbation Gastroesophageal reflux disease His overall prognosis is poor
--- NOTE | 2020-01-28 12:27 | P.PN ---
Subjective Progress Note Date: 01/28/20 This is a 74-year-old gentleman with history of hypertension, hyperlipidemia, chronic kidney disease stage III, COPD, initially presented to the hospital with symptoms of increasing shortness of breath, patient was also having episodes of dizziness and abdominal pain. He has been being diuresed with IV Lasix. Diuresing very well through the night last night. His weight is down today. White blood cell count 9.2, hemoglobin 9.9, platelet count 277. Sodium 137, potassium 4.5, BUN 52, creatinine 2.3. Magnesium 1.0. Objective - Vital Signs Vital signs: Vital Signs Temp 97.8 F 01/28/20 04:00 Pulse 89 01/28/20 04:00 Resp 17 01/28/20 04:00 BP 120/72 01/28/20 04:00 Pulse Ox 99 01/28/20 04:00 Intake & Output 01/27/20 01/28/20 01/28/20 18:59 06:59 18:59 Intake Total 568 199.037 240 Output Total 1475 2520 Balance -907 -2320.963 240 Weight 73 kg Intake: IV 448 Heparin Sod,Pork in 0.45% 128 NaCl 25,000 unit In 0.45 % NaCl 1 250ml.bag @ 12 UNITS/KG/HR 8.219 mls/hr IV .Q24H [facility] Rx#: [id number] Sodium Chloride 0.9% 1, 320 000 ml @ 20 mls/hr IV . Q24H [facility] Rx#:[id number] Intake, IV Titration 199.037 Amount Heparin Sod,Pork in 0.45% 199.037 NaCl 25,000 unit In 0.45 % NaCl 1 250ml.bag @ 12 UNITS/KG/HR 8.219 mls/hr IV .Q24H [facility] Rx#: [id number] Oral 120 240 Output: Urine 1475 2520 Other: Voiding Method Indwelling Catheter Indwelling Catheter # Bowel Movements 1 - Exam PHYSICAL EXAMINATION: GENERAL: 74-year-old gentleman in no acute distress at the time of my examination HEENT: Head is atraumatic, normocephalic. Pupils equal, round. Sclera anicteric. Conjunctiva are clear. Mucous membranes of the mouth are moist. Neck is supple. There is no elevated jugular venous pressure. No carotid bruit is heard. HEART EXAMINATION: Heart S1 and S2 irregularly irregular CHEST EXAMINATION: Lungs reveal diminished air entry to bilateral bases. ABDOMEN: Soft, nontender. Bowel sounds are heard. No organomegaly noted. EXTREMITIES: 2+ peripheral pulses with no evidence of peripheral edema and no calf tenderness noted. NEUROLOGIC patient is awake, alert and oriented X3 . - Labs CBC & Chem 7: 01/28/20 05:40 01/28/20 05:40 Labs: Abnormal Lab Results - Last 24 Hours (Table) 01/26/20 01/28/20 01/28/20 Range/Units 21:01 05:40 05:40 RBC 3.64 L (4.30-5.90) m/uL Hgb 9.9 L (13.0-17.5) gm/dL Hct 30.4 L (39.0-53.0) % RDW 16.1 H (11.5-15.5) % APTT 41.0 H (22.0-30.0) sec BUN (9-20) mg/dL Creatinine (0.66-1.25) mg/dL Magnesium (1.6-2.3) mg/dL Ferritin 20.3 L (22.0-322.0) ng/mL 01/28/20 01/28/20 Range/Units 05:40 05:40 RBC (4.30-5.90) m/uL Hgb (13.0-17.5) gm/dL Hct (39.0-53.0) % RDW (11.5-15.5) % APTT (22.0-30.0) sec BUN 52 H (9-20) mg/dL Creatinine 2.32 H (0.66-1.25) mg/dL Magnesium 1.0 L (1.6-2.3) mg/dL Ferritin (22.0-322.0) ng/mL Microbiology - Last 24 Hours (Table) 01/27/20 10:30 Urine Culture - Preliminary Urine,Voided Assessment and Plan Plan: Assessment and plan #1 systolic congestive heart failure acute on chronic #2 hyperkalemia for which the losarten was discontinued #3 hypertension #4 hyperlipidemia #5 severe pulmonary hypertension #6 acute kidney injury on chronic, history of chronic kidney disease, stage III Plan From tomorrow we will start the patient on Lasix 40 mg by mouth daily. Check lytes BUN and creatinine in the morning. DNP note has been reviewed, I agree with a documented findings and plan of care. Patient was seen and examined.
[2020-01-28] MEDS: HEPARIN SOD,PORK IN 0.45% NACL 25,000 UNIT in 0.45% NACL 1 250ML.BAG IV SCH (15:53)
--- NOTE | 2020-01-28 16:41 | US ---
EXAMINATION TYPE: US kidneys/renal and bladder DATE OF EXAM: 01/28/2020 COMPARISON: NONE CLINICAL HISTORY: 74-year-old male with acute kidney injury. TECHNIQUE: Multiple multiple sonographic images of the kidneys and bladder are obtained. FINDINGS: Security Technician notes: Exam limitations due to body habitus and bowel gas. EXAM MEASUREMENTS: Right Kidney: 9.9 x 4.0 x 4.1 cm Left Kidney: 10.0 x 4.3 x 3.8 cm Right Kidney: A mid pole cyst measures 2.2 cm. A lower pole cyst measures 1.6 cm. There is mild pelvi ectasis, probably transient. No calyceal dilatation to suggest hydronephrosis. Left Kidney: 1.8 cm cyst in the lower pole. No hydronephrosis. Bladder: Palomares catheter balloon is seen within a thickened and collapsed bladder. Prominent prostate gland measuring 5.0 cm wide. Bilateral Jets seen: No IMPRESSION: 1. Prostatomegaly of 5.0 cm wide. Circumferential bladder wall thickening probably chronic bladder wa ll hypertrophy in the setting of BPH. Clinically correlate to exclude cystitis. 2. Palomares catheter in place collapsing the bladder. 3. Benign renal cysts visualized, 2 on the right and one on the left. 4. Mild right-sided pelviectasis probably transient. No calyceal dilatation to suggest hydronephrosis . Follow-up can be considered.
[2020-01-28] MEDS: ATORVASTATIN 80 MG TAB PO SCH (17:53)
[2020-01-28] MEDS: ASPIRIN 81 MG PO SCH (17:54)
[2020-01-29] MEDS: TAMSULOSIN 0.4 MG CAP.ER.24H PO SCH (05:40)
[2020-01-29] MEDS: ALPRAZolam 0.25 MG TAB PO PRN ×3 (05:40→21:04)
[2020-01-29] MEDS: METOPROLOL TARTRATE 50 MG TAB PO SCH ×2 (05:40→16:44)
[2020-01-29] MEDS: TICAGRELOR 90 MG TAB PO SCH ×2 (05:41→16:45)
[2020-01-29 06:29] LABS: Anisocytosis Slight; Basophils # (A) 0.1 k/uL (0-0.2); Basophils % (A) 1 %; Eosinophils # (A) 0.4 k/uL (0-0.7); Eosinophils % (A) 5 %; HCT 33.1 % (39.0-53.0); HGB 10.2 gm/dL (13.0-17.5); Hypochromasia Slight; Lymphocytes # (A) 1.9 k/uL (1.0-4.8); Lymphocytes % (A) 22 %; MCHC 30.7 g/dL (31.0-37.0); MCV 84.8 fL (80.0-100.0); Mean Platelet Volume 8.3; Monocytes # (A) 0.5 k/uL (0-1.0); Monocytes % (A) 6 %; Neutrophils # (A) 5.5 k/uL (1.3-7.7); Neutrophils % (A) 64 %; Platelet Count 270 k/uL (150-450); RBC 3.91 m/uL (4.30-5.90); RDW 16.1 % (11.5-15.5); WBC 8.5 k/uL (3.8-10.6)
[2020-01-29 06:38] LABS: Calcium 9.2 mg/dL (8.4-10.2); Magnesium 1.7 mg/dL (1.6-2.3)
--- NOTE | 2020-01-29 08:55 | P.PN ---
Subjective Patient is seen in follow-up for acute kidney injury on chronic kidney disease. Renal function is improving. Dyspnea improved. Oral intake fair. Urine output over 2 L in the last 24 hours. Vital signs are stable. General: The patient appeared well nourished and normally developed. HEENT: Head exam is unremarkable. Neck is without jugular venous distension. LUNGS: Lungs are clear to auscultation and percussion. Breath sounds decreased. HEART: Rate and Rhythm are regular. ABDOMEN: Soft, nontender. EXTREMITITES: Trace edema. Objective - Vital Signs Vital signs: Vital Signs Temp 98.2 F 01/29/20 04:00 Pulse 77 01/29/20 04:00 Resp 17 01/29/20 04:00 BP 97/72 01/29/20 04:00 Pulse Ox 97 01/29/20 04:00 Intake & Output 01/28/20 01/29/20 01/29/20 18:59 06:59 18:59 Intake Total 688.219 142.237 Output Total 2137 2900 Balance -1448.781 -2757.763 Weight 69.5 kg Intake: Intake, IV Titration 88.219 142.237 Amount Heparin Sod,Pork in 0.45% 88.219 142.237 NaCl 25,000 unit In 0.45 % NaCl 1 250ml.bag @ 12 UNITS/KG/HR 8.219 mls/hr IV .Q24H [facility] Rx#: [id number] Oral 600 Output: Urine 2000 2900 Post Void Residual 137 Other: Voiding Method Indwelling Catheter Indwelling Catheter - Labs CBC & Chem 7: 01/29/20 05:52 01/29/20 05:52 Labs: Abnormal Lab Results - Last 24 Hours (Table) 01/26/20 01/28/20 01/28/20 Range/Units 21:01 05:40 13:08 RBC (4.30-5.90) m/uL Hgb (13.0-17.5) gm/dL Hct (39.0-53.0) % MCHC (31.0-37.0) g/dL RDW (11.5-15.5) % APTT 43.5 H (22.0-30.0) sec Sodium (137-145) mmol/L Chloride (98-107) mmol/L BUN 52 H (9-20) mg/dL Creatinine 2.32 H (0.66-1.25) mg/dL Glucose (74-99) mg/dL Ferritin 20.3 L (22.0-322.0) ng/mL 01/29/20 01/29/20 01/29/20 Range/Units 05:52 05:52 05:52 RBC 3.91 L (4.30-5.90) m/uL Hgb 10.2 L (13.0-17.5) gm/dL Hct 33.1 L (39.0-53.0) % MCHC 30.7 L (31.0-37.0) g/dL RDW 16.1 H (11.5-15.5) % APTT 45.1 H (22.0-30.0) sec Sodium 136 L (137-145) mmol/L Chloride 96 L (98-107) mmol/L BUN 54 H (9-20) mg/dL Creatinine 1.84 H (0.66-1.25) mg/dL Glucose 101 H (74-99) mg/dL Ferritin (22.0-322.0) ng/mL Microbiology - Last 24 Hours (Table) 01/27/20 10:30 Urine Culture - Final Urine,Voided Assessment and Plan Plan: Assessment: 1. Acute kidney injury secondary to ATN secondary to cardiorenal syndrome. Trace proteinuria on UA. No hydronephrosis noted on kidney ultrasound. Renal function improving. Creatinine 1.84 today. 2. Chronic kidney disease stage III with baseline creatinine in the range of 1.2-1.5. Etiology is nephrosclerosis. 3. Volume overload with pleural effusions. 4. Left kidney cyst. Noted to be benign. 5. Severe hypomagnesemia from diuresis. Improved post replacement. 6. Metabolic acidosis secondary to acute kidney injury. Resolved. 7. Acute on chronic systolic CHF with ejection fraction of less than 20% with moderate mitral and tricuspid regurgitation. 8. Severe pulmonary hypertension. Plan: Maintain IV Lasix 40 mg twice daily. Add oral magnesium oxide. Avoid nephrotoxins. Continue to monitor renal function and urine output.
[2020-01-29] MEDS ORDERED: MAGNESIUM SULFATE-D5W PMX 1 GM in DEXTROSE/WATER 1 100ML.BAG IVPB SCH (10:30)
[2020-01-29] MEDS: MAGNESIUM OXIDE 400 MG TAB PO SCH (10:34)
[2020-01-29] MEDS: FUROSEMIDE 10 MG/ML 4 ML VIAL IV SCH ×2 (10:37→22:42)
[2020-01-29] MEDS: MIDODRINE 5 MG TAB PO SCH ×2 (12:10→16:45)
--- NOTE | 2020-01-29 15:20 | P.PN ---
Subjective Progress Note Date: 01/29/20 Principal diagnosis: 74-year-old male came in with acute hypoxic respiratory failure secondary to CHF exacerbation and renal failure secondary to cardiorenal syndrome or prerenal a zotemia from heart failure.. He had EF of 20% with mitral and tricuspid regurgitation chronic kidney disease stage III with baseline creatinine of around 1.2-1.5 and patient was admitted his creatinine went up to 2.5. Patient is presently on 3 L of oxygen. Patient does have severe pulmonary hypertension as well Constitutional: Denied any fatigue denied any fever. Cardio vascular: denied any chest pain, palpitations Gastrointestinal denied any nausea vomiting Pulmonary: Still significantly short of breath Neurologic denied any new focal deficits All inpatient medications were reviewed and appropriate changes in these medications as dictated in the interval history and assessment and plan. 01/29/2020 Patient is seen and evaluated and follow-up with no acute overnight issues. Nephrology and cardiology following. Patient remains on IV Lasix along with IV heparin and Lasix will be transitioned oral. May discontinue Palomares tomorrow. Creatinine slightly improving and is currently 1.84 today. No reports of chest pain, worsening shortness of breath, or palpitations. Patient still has some shortness of breath with exertion. Patient is afebrile. No reports of nausea or vomiting and patient is tolerating diet. Patient states he would like to go home today. Objective - Vital Signs Vital signs: Vital Signs Temp 98.1 F 01/29/20 11:55 Pulse 83 01/29/20 11:55 Resp 18 01/29/20 11:55 BP 83/40 01/29/20 11:55 Pulse Ox 97 01/29/20 11:55 Intake & Output 01/28/20 01/29/20 01/29/20 18:59 06:59 18:59 Intake Total 688.219 142.237 Output Total 2137 2900 Balance -1448.781 -2757.763 Weight 69.5 kg Intake: Intake, IV Titration 88.219 142.237 Amount Heparin Sod,Pork in 0.45% 88.219 142.237 NaCl 25,000 unit In 0.45 % NaCl 1 250ml.bag @ 12 UNITS/KG/HR 8.219 mls/hr IV .Q24H [facility] Rx#: [id number] Oral 600 Output: Urine 1999 2900 Post Void Residual 137 Other: Voiding Method Indwelling Catheter Indwelling Catheter Indwelling Catheter - Exam GENERAL: The patient is alert and oriented x3, not in any acute distress. Well developed, well nourished. Slightly hard of hearing HEENT: Pupils are round and equally reacting to light. EOMI. No scleral icterus. No conjunctival pallor. Normocephalic, atraumatic. No pharyngeal erythema. No thyromegaly. CARDIOVASCULAR: S1 and S2 present. No murmurs, rubs, or gallops. Neck: Elevated JVD PULMONARY: Crackles in bilateral lower lung lutz ABDOMEN: Soft, nontender, nondistended, normoactive bowel sounds. No palpable organomegaly. MUSCULOSKELETAL: No joint swelling or deformity. EXTREMITIES: No cyanosis, clubbing, or pedal edema. NEUROLOGICAL: Gross neurological examination did not reveal any focal deficits. SKIN: No rashes. - Labs CBC & Chem 7: 01/29/20 05:52 01/29/20 05:52 Labs: Abnormal Lab Results - Last 24 Hours (Table) 01/29/20 01/29/20 01/29/20 Range/Units 05:52 05:52 05:52 RBC 3.91 L (4.30-5.90) m/uL Hgb 10.2 L (13.0-17.5) gm/dL Hct 33.1 L (39.0-53.0) % MCHC 30.7 L (31.0-37.0) g/dL RDW 16.1 H (11.5-15.5) % APTT 45.1 H (22.0-30.0) sec Sodium 136 L (137-145) mmol/L Chloride 96 L (98-107) mmol/L BUN 54 H (9-20) mg/dL Creatinine 1.84 H (0.66-1.25) mg/dL Glucose 101 H (74-99) mg/dL Microbiology - Last 24 Hours (Table) 01/27/20 10:30 Urine Culture - Final Urine,Voided Assessment and Plan Assessment: -Acute hypoxic respiratory failure secondary to CHF exacerbation patient has an EF of 20%, systolic dysfunction with acute exacerbation continue with IV Lasix -Acute renal failure on chronic kidney disease stage 3-4 acute renal failure secondary to cardiorenal syndrome or pedal azotemia from heart failure continue with Lasix and monitor his kidney function overall prognosis is poor -Elevated troponin type II non-ST elevation nocardial infarction. cardiology evaluated the patient, patient is presently on IV heparin which will be continued -Asymptomatic bacteriuria, patient denies any dysuria or increased retention. patient self catheterizes, no antibiotics required, urine culture showed no growth -chronic kidney disease stage III secondary to nephrosclerosis from hypertension, current creatinine is slightly improved at 1.84 with a BUN of 54. For ALLERGY following. -Hypomagnesemia, improving currently replaced, current magnesium is 1.7 -Hypokalemia -Hyperlipidemia -Coronary artery disease with ischemic myopathy -Chronic low back pain -COPD without any acute exacerbation -Gastroesophageal reflux disease
[2020-01-29] MEDS: SODIUM CHLORIDE 0.9% 1,000 ML IV SCH (16:38)
[2020-01-29] MEDS: ASPIRIN 81 MG PO SCH (16:44)
[2020-01-29] MEDS: ATORVASTATIN 80 MG TAB PO SCH (16:44)
[2020-01-29] MEDS: HEPARIN SOD,PORK IN 0.45% NACL 25,000 UNIT in 0.45% NACL 1 250ML.BAG IV SCH (21:04)
[2020-01-30] MEDS: MIDODRINE 5 MG TAB PO SCH ×3 (06:38→17:23)
[2020-01-30] MEDS: TAMSULOSIN 0.4 MG CAP.ER.24H PO SCH (06:38)
[2020-01-30] MEDS: ASPIRIN 81 MG PO SCH ×2 (06:39→17:23)
[2020-01-30] MEDS: TICAGRELOR 90 MG TAB PO SCH ×2 (06:39→17:23)
[2020-01-30 07:13] LABS: Calcium 8.9 mg/dL (8.4-10.2); Magnesium 1.6 mg/dL (1.6-2.3); Potassium 3.8 mmol/L (3.5-5.1)
[2020-01-30] MEDS: FUROSEMIDE 10 MG/ML 4 ML VIAL IV SCH (08:35)
[2020-01-30] MEDS: METOPROLOL TARTRATE 50 MG TAB PO SCH (08:35)
[2020-01-30] MEDS: ALPRAZolam 0.25 MG TAB PO PRN ×2 (08:45→21:16)
[2020-01-30] MEDS: MAGNESIUM OXIDE 400 MG TAB PO SCH (08:45)
--- NOTE | 2020-01-30 09:17 | P.PN ---
Subjective Patient is seen in follow-up for acute kidney injury on chronic kidney disease. Renal function is improving. Dyspnea improved. Oral intake fair. Nonoliguric. Lasix was not given yesterday due to hypotension. Blood pressure was again noted to be low in the systolic 70s this morning. Patient denies any dizziness. Vital signs are stable. General: The patient appeared well nourished and normally developed. HEENT: Head exam is unremarkable. Neck is without jugular venous distension. LUNGS: Lungs are clear to auscultation and percussion. Breath sounds decreased. HEART: Rate and Rhythm are regular. ABDOMEN: Soft, nontender. EXTREMITITES: Trace edema. Objective - Vital Signs Vital signs: Vital Signs Temp 98.3 F 01/30/20 08:00 Pulse 55 L 01/30/20 08:00 Resp 18 01/30/20 03:21 BP 74/28 01/30/20 08:00 Pulse Ox 97 01/30/20 08:00 Intake & Output 01/29/20 01/30/20 01/30/20 18:59 06:59 18:59 Intake Total 947.363 40 180 Output Total 950 Balance 947.363 -910 180 Weight 72.5 kg Intake: IV 79.6 40 Heparin Sod,Pork in 0.45% 79.6 NaCl 25,000 unit In 0.45 % NaCl 1 250ml.bag @ 12 UNITS/KG/HR 8.219 mls/hr IV .Q24H [facility] Rx#: [id number] Sodium Chloride 0.9% 1, 40 000 ml @ 20 mls/hr IV . Q24H [facility] Rx#:[id number] Intake, IV Titration 267.763 Amount Heparin Sod,Pork in 0.45% 107.763 NaCl 25,000 unit In 0.45 % NaCl 1 250ml.bag @ 12 UNITS/KG/HR 8.219 mls/hr IV .Q24H [facility] Rx#: [id number] Sodium Chloride 0.9% 1, 160 000 ml @ 20 mls/hr IV . Q24H [facility] Rx#:[id number] Oral 600 180 Output: Urine 950 Uretheral (Palomares) 225 Other: Voiding Method Indwelling Catheter Indwelling Catheter - Labs CBC & Chem 7: 01/29/20 05:52 01/30/20 06:26 Labs: Abnormal Lab Results - Last 24 Hours (Table) 01/30/20 01/30/20 Range/Units 06:26 06:26 APTT 43.4 H (22.0-30.0) sec BUN 62 H (9-20) mg/dL Creatinine 1.74 H (0.66-1.25) mg/dL Assessment and Plan Plan: Assessment: 1. Acute kidney injury secondary to ATN secondary to cardiorenal syndrome. Trace proteinuria on UA. No hydronephrosis noted on kidney ultrasound. Renal function improving. Creatinine 1.74 today. 2. Chronic kidney disease stage III with baseline creatinine in the range of 1.2-1.5. Etiology is nephrosclerosis. 3. Volume overload with pleural effusions. Improved with diuresis. 4. Left kidney cyst. Noted to be benign. 5. Severe hypomagnesemia from diuresis. Improved post replacement. Maintained on oral magnesium oxide. 6. Metabolic acidosis secondary to acute kidney injury. Resolved. 7. Acute on chronic systolic CHF with ejection fraction of less than 20% with moderate mitral and tricuspid regurgitation. 8. Severe pulmonary hypertension. 9. Hypotension secondary to underlying cardiac status maintained on midodrine. Plan: I will change Lasix to 40 mg orally once daily. Avoid nephrotoxins. Continue to monitor renal function and urine output. Check morning cortisol level.
[2020-01-30] MEDS: SODIUM CHLORIDE 0.9% 1,000 ML IV SCH (13:03)
[2020-01-30] MEDS: FUROSEMIDE 40 MG TAB PO SCH (13:05)
--- NOTE | 2020-01-30 14:00 | P.PN ---
Subjective Progress Note Date: 01/30/20 Principal diagnosis: 74-year-old male came in with acute hypoxic respiratory failure secondary to CHF exacerbation and renal failure secondary to cardiorenal syndrome or prerenal a zotemia from heart failure.. He had EF of 20% with mitral and tricuspid regurgitation chronic kidney disease stage III with baseline creatinine of around 1.2-1.5 and patient was admitted his creatinine went up to 2.5. Patient is presently on 3 L of oxygen. Patient does have severe pulmonary hypertension as well Constitutional: Denied any fatigue denied any fever. Cardio vascular: denied any chest pain, palpitations Gastrointestinal denied any nausea vomiting Pulmonary: Still significantly short of breath Neurologic denied any new focal deficits All inpatient medications were reviewed and appropriate changes in these medications as dictated in the interval history and assessment and plan. 01/29/2020 Patient is seen and evaluated and follow-up with no acute overnight issues. Nephrology and cardiology following. Patient remains on IV Lasix along with IV heparin and Lasix will be transitioned oral. May discontinue Palomares tomorrow. Creatinine slightly improving and is currently 1.84 today. No reports of chest pain, worsening shortness of breath, or palpitations. Patient still has some shortness of breath with exertion. Patient is afebrile. No reports of nausea or vomiting and patient is tolerating diet. Patient states he would like to go home today. 01/30/2020 Patient is seen in follow-up today and states his shortness of breath has gotten slightly better. Patient transitioned oral Lasix and will continue with 40 mg daily. Current creatinine is trending down and is 1.74. Patient's blood pressure continues to be extremely low 70s systolic and was started on midod rine. Nephrology is following. Patient is currently on room air and tolerating. Will repeat a.m. chest x-ray. Indwelling Palomares catheter remains at this time for close intake and output monitoring. Currently no reports of chest pain or palpitations. Patient is afebrile. No reports of nausea or vomiting and patient is tolerating diet. Objective - Vital Signs Vital signs: Vital Signs Temp 98.3 F 01/30/20 08:00 Pulse 55 L 01/30/20 08:00 Resp 18 01/30/20 03:21 BP 74/28 01/30/20 08:00 Pulse Ox 97 01/30/20 08:00 Intake & Output 01/29/20 01/30/20 01/30/20 18:59 06:59 18:59 Intake Total 947.363 40 180 Output Total 950 Balance 947.363 -910 180 Weight 72.5 kg Intake: IV 79.6 40 Heparin Sod,Pork in 0.45% 79.6 NaCl 25,000 unit In 0.45 % NaCl 1 250ml.bag @ 12 UNITS/KG/HR 8.219 mls/hr IV .Q24H [facility] Rx#: [id number] Sodium Chloride 0.9% 1, 40 000 ml @ 20 mls/hr IV . Q24H [facility] Rx#:[id number] Intake, IV Titration 267.763 Amount Heparin Sod,Pork in 0.45% 107.763 NaCl 25,000 unit In 0.45 % NaCl 1 250ml.bag @ 12 UNITS/KG/HR 8.219 mls/hr IV .Q24H [facility] Rx#: [id number] Sodium Chloride 0.9% 1, 160 000 ml @ 20 mls/hr IV . Q24H [facility] Rx#:[id number] Oral 600 180 Output: Urine 950 Uretheral (Palomares) 225 Other: Voiding Method Indwelling Catheter Indwelling Catheter Indwelling Catheter - Exam GENERAL: The patient is alert and oriented x3, not in any acute distress. Well developed, well nourished. Slightly hard of hearing HEENT: Pupils are round and equally reacting to light. EOMI. No scleral icterus. No conjunctival pallor. Normocephalic, atraumatic. No pharyngeal erythema. No thyromegaly. CARDIOVASCULAR: S1 and S2 present. No murmurs, rubs, or gallops. Neck: Elevated JVD PULMONARY: Diminished breath sounds at the bases with a few scattered rhonchi noted ABDOMEN: Soft, nontender, nondistended, normoactive bowel sounds. No palpable organomegaly. MUSCULOSKELETAL: No joint swelling or deformity. EXTREMITIES: No cyanosis, clubbing, or pedal edema. NEUROLOGICAL: Gross neurological examination did not reveal any focal deficits. SKIN: No rashes. - Labs CBC & Chem 7: 01/29/20 05:52 01/30/20 06:26 Labs: Abnormal Lab Results - Last 24 Hours (Table) 01/30/20 01/30/20 Range/Units 06:26 06:26 APTT 43.4 H (22.0-30.0) sec BUN 62 H (9-20) mg/dL Creatinine 1.74 H (0.66-1.25) mg/dL Assessment and Plan Assessment: -Acute hypoxic respiratory failure secondary to CHF exacerbation patient has an EF of 20%, systolic dysfunction with acute exacerbation. Patient is on Lasix 40 mg daily by mouth -Acute renal failure on chronic kidney disease stage 3-4 acute renal failure secondary to cardiorenal syndrome or prerenal azotemia from heart failure continue with oral Lasix and monitor his kidney function. overall prognosis is poor -Elevated troponin type II non-ST elevation nocardial infarction. cardiology evaluated the patient, patient is presently on IV heparin which will be continued -Asymptomatic bacteriuria, patient denies any dysuria or increased retention. patient self catheterizes, no antibiotics required, urine culture showed no growth -chronic kidney disease stage III secondary to nephrosclerosis from hypertension, current creatinine is slightly improved at 1.74 with a BUN of 62. Nephrology following. -Hypomagnesemia, improving currently replaced, patient was started on magnesium oxide oral, current magnesium is 1.6 -Hypokalemia, improved. Potassium currently 3.8 -Hyperlipidemia -Coronary artery disease with ischemic myopathy -Chronic low back pain -COPD without any acute exacerbation -Gastroesophageal reflux disease
--- NOTE | 2020-01-30 14:24 | P.PN ---
Subjective Progress Note Date: 01/30/20 This is a 74-year-old gentleman with history of hypertension, hyperlipidemia, chronic kidney disease stage III, COPD, initially presented to the hospital with symptoms of increasing shortness of breath, patient was also having episodes of dizziness and abdominal pain. He has been being diuresed with IV Lasix. Diuresing very well through the night last night. His weight is down today. White blood cell count 9.2, hemoglobin 9.9, platelet count 277. Sodium 137, potassium 4.5, BUN 52, creatinine 2.3. Magnesium 1.0. 01/30/2020 Patient seen and examined this morning, blood pressure through the night 74/28, metoprolol was held and patient did receive midodrine. Subsequent blood pressur e 92/40 with a heart rate in the 80s, 95% on room air. We will decrease his dose of Lopressor to 25 mg one tablet by mouth twice a day. Continue Lipitor, continue Lasix, discontinue heparin. Objective - Vital Signs Vital signs: Vital Signs Temp 98.3 F 01/30/20 08:00 Pulse 84 01/30/20 12:00 Resp 18 01/30/20 03:21 BP 92/48 01/30/20 12:00 Pulse Ox 95 01/30/20 12:00 Intake & Output 01/29/20 01/30/20 01/30/20 18:59 06:59 18:59 Intake Total 947.363 40 540 Output Total 950 Balance 947.363 -910 540 Weight 72.5 kg Intake: IV 79.6 40 Heparin Sod,Pork in 0.45% 79.6 NaCl 25,000 unit In 0.45 % NaCl 1 250ml.bag @ 12 UNITS/KG/HR 8.219 mls/hr IV .Q24H TI Rx#: [id number] Sodium Chloride 0.9% 1, 40 000 ml @ 20 mls/hr IV . Q24H TI Rx#:[id number] Intake, IV Titration 267.763 Amount Heparin Sod,Pork in 0.45% 107.763 NaCl 25,000 unit In 0.45 % NaCl 1 250ml.bag @ 12 UNITS/KG/HR 8.219 mls/hr IV .Q24H TI Rx#: [id number] Sodium Chloride 0.9% 1, 160 000 ml @ 20 mls/hr IV . Q24H [facility] Rx#:[id number] Oral 600 540 Output: Urine 950 Uretheral ([place]oma[place]) 225 Other: Voiding Method Indwelling Catheter Indwelling Catheter Indwelling Catheter - Exam PHYSICAL EXAMINATION: GENERAL: 74-year-old gentleman in no acute distress at the time of my examination HEENT: Head is atraumatic, normocephalic. Pupils equal, round. Sclera anicteric. Conjunctiva are clear. Mucous membranes of the mouth are moist. Neck is supple. There is no elevated jugular venous pressure. No carotid bruit is heard. HEART EXAMINATION: Heart S1 and S2 irregularly irregular CHEST EXAMINATION: Lungs reveal diminished air entry to bilateral bases. ABDOMEN: Soft, nontender. Bowel sounds are heard. No organomegaly noted. EXTREMITIES: 2+ peripheral pulses with no evidence of peripheral edema and no calf tenderness noted. NEUROLOGIC patient is awake, alert and oriented X3 . - Labs CBC & Chem 7: 01/29/20 05:52 01/30/20 06:26 Labs: Abnormal Lab Results - Last 24 Hours (Table) 01/30/20 01/30/20 Range/Units 06:26 06:26 APTT 43.4 H (22.0-30.0) sec BUN 62 H (9-20) mg/dL Creatinine 1.74 H (0.66-1.25) mg/dL Assessment and Plan Plan: Assessment and plan #1 systolic congestive heart failure acute on chronic #2 hyperkalemia for which the losarten was discontinued #3 hypertension #4 hyperlipidemia #5 severe pulmonary hypertension #6 acute kidney injury on chronic, history of chronic kidney disease, stage III Plan Because of the hypotension, we will decrease the dose of beta rebecca to 25 mg by mouth twice a day, discontinue the IV heparin. DNP note has been reviewed, I agree with a documented findings and plan of care. Patient was seen and examined.
[2020-01-30] MEDS: ATORVASTATIN 80 MG TAB PO SCH (17:23)
[2020-01-30] MEDS: METOPROLOL TARTRATE 25 MG TAB PO SCH (17:23)
[2020-01-31 04:12] VITALS: RESP 17
[2020-01-31] MEDS: MIDODRINE 5 MG TAB PO SCH ×2 (06:21→12:50)
[2020-01-31] MEDS: TAMSULOSIN 0.4 MG CAP.ER.24H PO SCH (06:21)
[2020-01-31] MEDS: TICAGRELOR 90 MG TAB PO SCH (06:21)
[2020-01-31] MEDS: METOPROLOL TARTRATE 25 MG TAB PO SCH (06:22)
[2020-01-31] MEDS: ASPIRIN 81 MG PO SCH (06:22)
--- NOTE | 2020-01-31 06:43 | XR ---
EXAMINATION TYPE: XR chest 2V DATE OF EXAM: 01/31/2020 COMPARISON: Chest x-ray 5 days ago. HISTORY: Shortness of breath TECHNIQUE: Frontal and lateral views of the chest are obtained. FINDINGS: Cardiac silhouette size upper limits of normal improved from prior with atherosclerotic bernardo nge in the aortic knob. Tiny left pleural effusion felt present on lateral view on current study. No suspicious focal airspace opacity or pneumothorax seen bilaterally. Multilevel spurring in thoracic s pine noted. Coronary artery stent in the left circumflex distribution is present. IMPRESSION: Persistent tiny left pleural effusion. Resolved cardiomegaly and interstitial prominence /edema. No new focal infiltrate.
[2020-01-31 06:57] LABS: Calcium 9.3 mg/dL (8.4-10.2); Magnesium 1.5 mg/dL (1.6-2.3); Potassium 3.8 mmol/L (3.5-5.1)
[2020-01-31] MEDS: MAGNESIUM OXIDE 400 MG TAB PO SCH (08:31)
[2020-01-31] MEDS: FUROSEMIDE 40 MG TAB PO SCH (08:31)
[2020-01-31] MEDS: ALPRAZolam 0.25 MG TAB PO PRN (08:31)
[2020-01-31] MEDS: MAGNESIUM SULFATE-D5W PMX 1 GM in DEXTROSE/WATER 1 100ML.BAG IVPB SCH ×2 (09:02→10:10)
--- NOTE | 2020-01-31 09:09 | P.PN ---
Subjective Patient is seen in follow-up for acute kidney injury on chronic kidney disease. Renal function is improving. Dyspnea improved. Oral intake fair. Nonoliguric. Currently maintained on oral Lasix. Blood pressure stable in the systolic 90s. Vital signs are stable. General: The patient appeared well nourished and normally developed. HEENT: Head exam is unremarkable. Neck is without jugular venous distension. LUNGS: Lungs are clear to auscultation and percussion. Breath sounds decreased. HEART: Rate and Rhythm are regular. ABDOMEN: Soft, nontender. EXTREMITITES: Trace edema. Objective - Vital Signs Vital signs: Vital Signs Temp 98.5 F 01/31/20 04:00 Pulse 87 01/31/20 04:00 Resp 17 01/31/20 04:00 BP 92/56 01/31/20 04:00 Pulse Ox 96 01/31/20 04:00 Intake & Output 01/30/20 01/31/20 01/31/20 18:59 06:59 18:59 Intake Total 1040 240 Output Total 2300 Balance 1040 -2300 240 Weight 68.7 kg Intake: Oral 1040 240 Output: Urine 2300 Other: Voiding Method Indwelling Catheter Indwelling Catheter - Labs CBC & Chem 7: 01/29/20 05:52 01/31/20 06:24 Labs: Abnormal Lab Results - Last 24 Hours (Table) 01/31/20 Range/Units 06:24 Sodium 135 L (137-145) mmol/L Chloride 97 L (98-107) mmol/L BUN 60 H (9-20) mg/dL Creatinine 1.57 H (0.66-1.25) mg/dL Magnesium 1.5 L (1.6-2.3) mg/dL Assessment and Plan Plan: Assessment: 1. Acute kidney injury secondary to ATN secondary to cardiorenal syndrome. Trace proteinuria on UA. No hydronephrosis noted on kidney ultrasound. Renal function improving. Creatinine 1.57 today. 2. Chronic kidney disease stage III with baseline creatinine in the range of 1.2-1.5. Etiology is nephrosclerosis. 3. Volume overload with pleural effusions. Improved with diuresis. 4. Left kidney cyst. Noted to be benign. 5. Severe hypomagnesemia from diuresis. Improved post replacement. Maintained on oral magnesium oxide. 6. Metabolic acidosis secondary to acute kidney injury. Resolved. 7. Acute on chronic systolic CHF with ejection fraction of less than 20% with moderate mitral and tricuspid regurgitation. 8. Severe pulmonary hypertension. 9. Hypotension secondary to underlying cardiac status maintained on midodrine. Plan: Maintain Lasix 40 mg orally once daily. Avoid nephrotoxins. Continue to monitor renal function and urine output. Magnesium being replaced. I will also increase the dose of oral magnesium oxide.
[2020-01-31 09:22] VITALS: TEMP 97.8
[2020-01-31] MEDS: SODIUM CHLORIDE 0.9% 1,000 ML IV SCH (12:50)
--- NOTE | 2020-01-31 13:00 | P.PN ---
Subjective Progress Note Date: 01/31/20 This is a 74-year-old gentleman with history of hypertension, hyperlipidemia, chronic kidney disease stage III, COPD, initially presented to the hospital with symptoms of increasing shortness of breath, patient was also having episodes of dizziness and abdominal pain. He has been being diuresed with IV Lasix. Diuresing very well through the night last night. His weight is down today. White blood cell count 9.2, hemoglobin 9.9, platelet count 277. Sodium 137, potassium 4.5, BUN 52, creatinine 2.3. Magnesium 1.0. 01/30/2020 Patient seen and examined this morning, blood pressure through the night 74/28, metoprolol was held and patient did receive midodrine. Subsequent blood pressur e 92/40 with a heart rate in the 80s, 95% on room air. We will decrease his dose of Lopressor to 25 mg one tablet by mouth twice a day. Continue Lipitor, continue Lasix, discontinue heparin. 01/31/2020 Patient seen and examined this morning, blood pressure 92/40, heart rate in the 80s, 94% on room air. Sodium 135, potassium 3.8, BUN 60, creatinine 1.5.magnesium level today 1.5. Diuresed a significant amount through the night last night, his weight is down 3 kg today. On oral diuretics. Repeat chest x-ray performed today revealed persistent tiny left pleural effusion, resolved cardiomegaly and interstitial prominence/edema. Objective - Vital Signs Vital signs: Vital Signs Temp 97.8 F 01/31/20 08:00 Pulse 82 01/31/20 08:00 Resp 17 01/31/20 04:00 BP 91/37 01/31/20 08:00 Pulse Ox 94 L 01/31/20 08:00 Intake & Output 01/30/20 01/31/20 01/31/20 18:59 06:59 18:59 Intake Total 1040 240 Output Total 2300 Balance 1040 -2300 240 Weight 68.7 kg Intake: Oral 1040 240 Output: Urine 2300 Other: Voiding Method Indwelling Catheter Indwelling Catheter Indwelling Catheter - Exam PHYSICAL EXAMINATION: GENERAL: 74-year-old gentleman in no acute distress at the time of my examination HEENT: Head is atraumatic, normocephalic. Pupils equal, round. Sclera anicteric. Conjunctiva are clear. Mucous membranes of the mouth are moist. Neck is supple. There is no elevated jugular venous pressure. No carotid bru it is heard. HEART EXAMINATION: Heart S1 and S2 irregularly irregular CHEST EXAMINATION: Lungs reveal improved air entry to bilateral bases. ABDOMEN: Soft, nontender. Bowel sounds are heard. No organomegaly noted. EXTREMITIES: 2+ peripheral pulses with no evidence of peripheral edema and no ca lf tenderness noted. NEUROLOGIC patient is awake, alert and oriented X3 . - Labs CBC & Chem 7: 01/29/20 05:52 01/31/20 06:24 Labs: Abnormal Lab Results - Last 24 Hours (Table) 01/31/20 Range/Units 06:24 Sodium 135 L (137-145) mmol/L Chloride 97 L (98-107) mmol/L BUN 60 H (9-20) mg/dL Creatinine 1.57 H (0.66-1.25) mg/dL Magnesium 1.5 L (1.6-2.3) mg/dL Assessment and Plan Plan: Assessment and plan #1 systolic congestive heart failure acute on chronic #2 hyperkalemia for which the losarten was discontinued #3 hypertension #4 hyperlipidemia #5 severe pulmonary hypertension #6 acute kidney injury on chronic, history of chronic kidney disease, stage III Plan Patient is currently on oral diuretics. We will continue this. His blood pressure overall seems to be staying in the 90s. We will continue with his current medication regime. He may be able to be discharged once cleared by primary and nephrology's perspective. DNP note has been reviewed, I agree with a documented findings and plan of care. Patient was seen and examined.
[2020-01-31 13:34] VITALS: BP 95/59; PULSE 89
[2020-01-31] MEDS ORDERED: MAGNESIUM OXIDE 400 MG TAB PO SCH (21:00)
--- NOTE | 2020-02-01 08:43 | P.DS ---
Providers Date of admission: 01/26/20 22:51 Expected date of discharge: 01/31/20 Attending physician: Chelo Huerta Consults: 01/26/20 22:48 Consult Physician Stat Consulting Provider: Mark Hearn Consult Reason/Comments: Elevated troponin Do you want consulting provider notified?: Yes 01/27/20 09:39 Consult Physician Urgent Consulting Provider: Gemma Lane Consult Reason/Comments: Acute on chronic renal failure Do you want consulting provider notified?: Yes Primary care physician: Dannie Montalvo [facility] Course: Final diagnosis -Acute hypoxic respiratory failure secondary to CHF exacerbation patient has an EF of 20%, systolic dysfunction with acute exacerbation -Acute renal failure on chronic kidney disease stage 3-4 acute renal failure secondary to cardiorenal syndrome or prerenal azotemia from heart failure -Elevated troponin type II non-ST elevation nocardial infarction. cardiology evaluated the patient, patient is presently on IV heparin which will be continued -Asymptomatic bacteriuria -chronic kidney disease stage III secondary to nephrosclerosis from hypertension -Hypomagnesemia -Hypokalemia -Hyperlipidemia -Coronary artery disease with ischemic myopathy -Chronic low back pain -COPD without any acute exacerbation -Gastroesophageal reflux disease Discharge disposition Patient is being discharged in a stable condition with guarded prognosis to home. She will follow-up with Dr. Pandey in the outpatient setting upon discharge. Patient also instructed to follow-up with nephrology as well as cardiology in the outpatient setting. Total time taken is 35 minutes. History of present illness This is a 74-year-old male who came in and was admitted with acute hypoxic respiratory failure secondary to congestive heart failure exacerbation along with renal failure secondary to cardiorenal syndrome or prerenal azotemia and was being closely monitored. Patient was noted to have an EF of 20% with mitral and tricuspid regurgitation along with chronic kidney disease stage III. Cardiology and nephrology following. Patient noted to have severe pulmonary hypertension as well. During hospitalization patient was diuresed with IV Lasix and will continue with oral Lasix in the outpatient setting. Patient continued to have hypotension and was started on midodrine and will continue in the outpatient setting. Patient instructed to follow-up with primary care provider upon discharge along with nephrology and cardiology in the outpatient setting. Recommended repeat labs to monitor electrolytes along with kidney functions. Patient does straight cath and will continue to do so in the outpatient setting. Patient follows with urology on an as-needed basis. Currently no reports of chest pain, shortness of breath, or palpitations. Patient is on room air. No reports of nausea or vomiting and patient is tolerating diet. Patient is afebrile. Patient would like to go home today. On exam vital signs are stable. Temp is 97.8F, pulse is 89, respirations are 17, blood pressure is 95/59 and oxygen saturation is 97% on room air. Cardio S1, S2 are present. Respiratory system shows diminished breath sounds with a few scattered rhonchi noted. Abdomen is soft, thin, and nontender. Nervous system shows no focal deficits. Please refer to medication reconciliation sheet for a list of medications. Patient Condition at Discharge: Stable Plan - Discharge Summary Discharge Rx Participant: Yes New Discharge Prescriptions: New Furosemide [Lasix] 40 mg PO DAILY 30 Days #30 tab Magnesium Oxide [Mag-Ox] 400 mg PO BID 30 Days #60 tab Midodrine [ProAmatine] 10 mg PO AC-TID 30 Days #90 tab Continue ALPRAZolam 1 mg PO BID@05,173 Omeprazole [PriLOSEC] 20 mg PO BID@529,173 Baclofen [Lioresal] 10 mg PO BID PRN PRN Reason: Muscle Spasm Nitroglycerin Sl Tabs [Nitrostat] 0.4 mg SUBLINGUAL Q5M PRN PRN Reason: Chest Pain Aspirin EC [Ecotrin Low Dose] 162 mg PO BID@0530,173 Multivitamins, Thera [Multivitamin (formulary)] 1 tab PO DAILY@0530 Cetirizine HCl [Zyrtec] 10 mg PO DAILY@0530 Ibuprofen [Motrin] 800 mg PO TID PRN PRN Reason: Pain Ticagrelor [Brilinta] 90 mg PO BID@0530,173 Metoprolol Tartrate [Lopressor] 25 mg PO BID@0530,1730 Atorvastatin Calcium [Lipitor] 80 mg PO HS@1730 Tamsulosin [Flomax] 0.4 mg PO DAILY@0530 Discontinued Spironolactone 25 mg PO DAILY@0530 Losartan [Cozaar] 25 mg PO DAILY@0530 Discharge Medication List ALPRAZolam 1 mg PO BID@0530,1730 07/19/16 [History] Omeprazole [PriLOSEC] 20 mg PO BID@0530,172907/19/16 [History] Aspirin EC [Ecotrin Low Dose] 162 mg PO BID@529,172901/31/17 [History] Baclofen [Lioresal] 10 mg PO BID PRN 01/31/17 [History] Nitroglycerin Sl Tabs [Nitrostat] 0.4 mg SUBLINGUAL Q5M PRN 01/31/17 [History] Multivitamins, Thera [Multivitamin (formulary)] 1 tab PO DAILY@52902/16/17 [History] Atorvastatin Calcium [Lipitor] 80 mg PO HS@172910/30/19 [History] Cetirizine HCl [Zyrtec] 10 mg PO DAILY@52910/30/19 [History] Ibuprofen [Motrin] 800 mg PO TID PRN 10/30/19 [History] Metoprolol Tartrate [Lopressor] 25 mg PO BID@529,172910/30/19 [History] Ticagrelor [Brilinta] 90 mg PO BID@529,172910/30/19 [History] Tamsulosin [Flomax] 0.4 mg PO DAILY@52901/27/20 [History] Furosemide [Lasix] 40 mg PO DAILY 30 Days #30 tab 01/31/20 [Rx] Magnesium Oxide [Mag-Ox] 400 mg PO BID 30 Days #60 tab 01/31/20 [Rx] Midodrine [ProAmatine] 10 mg PO AC-TID 30 Days #90 tab 01/31/20 [Rx] Follow up Appointment(s)/Referral(s): [facility] [Provider Group] - 02/21/20 9:45 am Carlitos Pandey MD [Primary Care Provider] - 1-2 days (Keep already scheduled appointment. ) Sumit Hidalgo DO [STAFF PHYSICIAN] - 02/12/20 11:20 am (This will be a telephone appointment.) Patient Instructions/Handouts: Chronic Kidney Disease (DC), Hypotension (DC) Activity/Diet/Wound Care/Special Instructions: Activity Limited until follow-up Follow-up with primary care provider upon discharge Continue current diet Monitor blood pressure closely and keep a log of blood pressure readings Follow Up with nephrology in the outpatient setting Follow-up with cardiology in the outpatient setting Discharge Disposition: HOME SELF-CARE
== END 2020-01-31 13:57 | disposition home or self-care (01) | DRG 280 ==
LOC: EC 20:43 → 3SCARD 22:51
PROVIDERS: ADMIT Internal Medicine; ATTEND Internal Medicine
DX: I13.0 Hypertensive heart and chronic kidney disease with heart failure and stage 1 through stage 4 chronic kidney disease, or unspecified chronic kidney disease (principal); I50.23 Acute on chronic systolic (congestive) heart failure; I21.A1 Myocardial infarction type 2; N17.0 Acute kidney failure with tubular necrosis; J96.01 Acute respiratory failure with hypoxia; N18.4 Chronic kidney disease, stage 4 (severe); I47.2 Ventricular tachycardia; E87.2 Acidosis; Z20.828 Contact with and (suspected) exposure to other viral communicable diseases; I27.29 Other secondary pulmonary hypertension; I95.9 Hypotension, unspecified; K21.9 Gastro-esophageal reflux disease without esophagitis; J44.9 Chronic obstructive pulmonary disease, unspecified; I25.10 Atherosclerotic heart disease of native coronary artery without angina pectoris; E78.5 Hyperlipidemia, unspecified; M19.90 Unspecified osteoarthritis, unspecified site; M81.0 Age-related osteoporosis without current pathological fracture; G89.29 Other chronic pain; I44.0 Atrioventricular block, first degree; E87.5 Hyperkalemia; R33.9 Retention of urine, unspecified; F17.210 Nicotine dependence, cigarettes, uncomplicated; Z71.6 Tobacco abuse counseling; M51.36 Other intervertebral disc degeneration, lumbar region; N28.1 Cyst of kidney, acquired; E83.42 Hypomagnesemia; I08.1 Rheumatic disorders of both mitral and tricuspid valves; I25.5 Ischemic cardiomyopathy; I49.3 Ventricular premature depolarization; R82.71 Bacteriuria; I25.2 Old myocardial infarction; Z79.02 Long term (current) use of antithrombotics/antiplatelets; Z87.440 Personal history of urinary (tract) infections; Z98.890 Other specified postprocedural states; Z98.42 Cataract extraction status, left eye; Z98.41 Cataract extraction status, right eye; Z95.5 Presence of coronary angioplasty implant and graft; Z79.899 Other long term (current) drug therapy; Z87.19 Personal history of other diseases of the digestive system; Z87.01 Personal history of pneumonia (recurrent); Z82.49 Family history of ischemic heart disease and other diseases of the circulatory system; Z82.3 Family history of stroke
CPT/HCPCS: 36415; 71046; 74176; 76770; 80048; 80053; 81001; 82150; 82272; 82533; 82728; 83615; 83690; 83735; 83880; 84484; 85025; 85610; 85730; 86140; 87086; 87635; 93005; 96365; 96375; 96376; 99285

== ENCOUNTER 2020-03-25 15:11 | Inpatient (IN) | payer MEDICARE, OTHER ==
[2020-03-25 16:36] LABS: Albumin 4.1 g/dL (3.5-5.0); Anisocytosis Slight; Calcium 9.4 mg/dL (8.4-10.2); HCT 33.9 % (39.0-53.0); HGB 10.1 gm/dL (13.0-17.5); Hypochromasia Marked; MCHC 29.8 g/dL (31.0-37.0); MCV 84.1 fL (80.0-100.0); Mean Platelet Volume 9.2; Platelet Count 161 k/uL (150-450); Poikilocytosis Slight; Potassium 5.6 mmol/L (3.5-5.1); RBC 4.03 m/uL (4.30-5.90); RDW 16.3 % (11.5-15.5); Total Bilirubin 0.9 mg/dL (0.2-1.3); Total Protein 7.6 g/dL (6.3-8.2); WBC 5.3 k/uL (3.8-10.6)
[2020-03-25 16:52] LABS: Eosinophils # (M) 0.05 k/uL (0-0.7); Lymphocytes # (M) 2.65 k/uL (1.0-4.8); Monocytes # (M) 0.16 k/uL (0-1.0); Neutrophils # (M) 2.44 k/uL (1.3-7.7); Neutrophils % (M) 46 %; Nucleated Red Blood Cells 0 /100 WBC (0-0); Total Cells Counted 100
[2020-03-25 17:10] LABS: INR 1.3 (<1.2); Partial Thromboplastin Time 22.9 sec (22.0-30.0); Prothrombin Time 12.6 sec (9.0-12.0)
--- NOTE | 2020-03-25 17:11 | ED ---
SOB HPI - General Chief Complaint: Shortness of Breath Stated Complaint: HALIMA Time Seen by Provider: 03/25/20 15:20 Source: patient Mode of arrival: EMS Limitations: no limitations - History of Present Illness Initial Comments: The patient is a 74-year-old male with past medical history of coronary artery disease, heart failure, COPD who presents to the emergency department with shortness of breath. He called EMS has he was reporting shortness of breath. EMS went into his house to find it 90 and the patient was later wearing 2 layers of clothing. The patient then began having additional symptoms of nausea with mild abdominal discomfort. Reports to multiple falls. Fell today and landed on his lumbar spine. Denies any pain, numbness or tingling that goes into his lower extremities. Patient was able to ambulate after the fall. He denies any blunt head trauma or loss of consciousness. He denies any chest pain. No headaches or visual changes. Denies any changes in his bowel or bladder habits. Patient does not feel as if he can Care for himself. Reports last time he is discharged from the hospital use within the home care nurse ho yeimiver they have not been assisting him. Patient lives alone and states the ex roommate will buy groceries but he is unable to drive and obtained things for his self. Denies having any family. States at this point he needs assistance getting care. There are no other alleviating, precipitating or modifying factors - Related Data Home Medications Medication Instructions Recorded Confirmed ALPRAZolam 1 mg PO BID@05,172907/19/16 03/25/20 Omeprazole [PriLOSEC] 20 mg PO BID@529,172907/19/16 03/25/20 Baclofen [Lioresal] 10 mg PO BID@529,172901/31/17 03/25/20 Atorvastatin Calcium [Lipitor] 80 mg PO HS@172910/30/19 03/25/20 Cetirizine HCl [Zyrtec] 10 mg PO DAILY@52910/30/19 03/25/20 Metoprolol Tartrate [Lopressor] 25 mg PO BID@0530,172910/30/19 03/25/20 Ticagrelor [Brilinta] 90 mg PO BID@529,172910/30/19 03/25/20 Tamsulosin [Flomax] 0.4 mg PO DAILY@0530 01/27/20 03/25/20 Furosemide [Lasix] 40 mg PO DAILY@0530 03/25/20 03/25/20 Loratadine 10 mg PO DAILY@0530 03/25/20 03/25/20 Losartan [Cozaar] 25 mg PO DAILY@0530 03/25/20 03/25/20 Magnesium Oxide [Mag-Ox] 400 mg PO BID@0530,1730 03/25/20 03/25/20 Midodrine [ProAmatine] 5 mg PO TID 03/25/20 03/25/20 Penicillin V Potassium [Pen Vee K] 500 mg PO Q6H 03/25/20 03/25/20 Spironolactone 25 mg PO DAILY@0530 03/25/20 03/25/20 Valsartan 40 mg PO DAILY@0530 03/25/20 03/25/20 Allergies Allergy/AdvReac Type Severity Reaction Status Date / Time No Known Allergies Allergy Verified 03/25/20 17:03 Review of Systems ROS Statement: Those systems with pertinent positive or pertinent negative responses have been documented in the HPI. ROS Other: All systems not noted in ROS Statement are negative. Past Medical History Past Medical History: Coronary Artery Disease (CAD), Chest Pain / Angina, Heart Failure, COPD, GERD/Reflux, Hyperlipidemia, Hypertension, Liver Disease, Myocardial Infarction (PR), Osteoarthritis (OA), Pneumonia Additional Past Medical History / Comment(s): 04/02/16 UTI WITH SEPSIS, STATES HE SELF CATHS chronic back PAIN ddd, osteoporosis , PT stated he pulls his own teeth. 01/21/2016 Patient states he self caths intermittently when needed, is EKUK bilaterally, edentulous and has 3 stents. Last Myocardial Infarction Date:: 2015 History of Any Multi-Drug Resistant Organisms: None Reported Past Surgical History: Adenoidectomy, Heart Catheterization, Hernia Repair, Tonsillectomy Additional Past Surgical History / Comment(s): COLONOSCOPY,CATARACTS. recent heart cath -has triple vessel disease-no sx as of yet. Past Anesthesia/Blood Transfusion Reactions: No Reported Reaction Date of Last Stent Placement:: 2015 Past Psychological History: No Psychological Hx Reported Smoking Status: Current every day smoker Past Alcohol Use History: None Reported, Daily Past Drug Use History: None Reported - Past Family History Mother Family Medical History: Myocardial Infarction (PR) Additional Family Medical History / Comment(s): Mother had a PR in her 80s and . Brother(s) Family Medical History: CVA/TIA Sister(s) Family Medical History: CVA/TIA Father Family Medical History: No Reported History Additional Family Medical History / Comment(s): Father when pt was young from a drowning. General Exam Limitations: no limitations General appearance: alert, in no apparent distress Head exam: Present: atraumatic, normocephalic Eye exam: Present: PERRL, EOMI ENT exam: Present: normal exam, mucous membranes moist Neck exam: Present: normal inspection. Absent: tenderness, meningismus, lymphadenopathy Respiratory exam: Present: normal lung sounds bilaterally. Absent: respiratory distress, wheezes, rales, rhonchi, stridor Cardiovascular Exam: Present: regular rate, normal rhythm, normal heart sounds. Absent: systolic murmur, diastolic murmur, rubs, gallop, clicks GI/Abdominal exam: Present: soft, normal bowel sounds. Absent: distended, tenderness, guarding, rebound, rigid Extremities exam: Present: normal inspection, full ROM, normal capillary refill, other (5/5 muscle strength in the bilateral lower extremities. Reflexes intact. Intact sensation in the bilateral lower extremities). Absent: tenderness, pedal edema, joint swelling, calf tenderness Back exam: Present: tenderness, paraspinal tenderness (L2-L5) Neurological exam: Present: alert, oriented X3, CN II-XII intact Psychiatric exam: Present: flat affect Skin exam: Present: warm, dry, intact, normal color. Absent: rash Course Vital Signs 03/25/20 03/25/20 03/25/20 15:16 16:55 16:57 Temperature 97.5 F L Pulse Rate 81 80 Pulse Rate [ [employer] ] Respiratory 18 16 16 Rate Blood Pressure 107/81 109/82 Blood Pressure [Left Arm Sitting] Blood Pressure [Right Arm Sitting] O2 Sat by Pulse 99 99 Oximetry 03/25/20 03/25/20 03/25/20 19:28 19:39 19:49 Temperature Pulse Rate 85 87 84 Pulse Rate [ [employer] ] Respiratory 16 16 17 Rate Blood Pressure 115/78 Blood Pressure [Left Arm Sitting] Blood Pressure [Right Arm Sitting] O2 Sat by Pulse 97 Oximetry 03/26/20 03/26/20 03/26/20 00:46 06:48 07:39 Temperature 98 F Pulse Rate 84 96 84 Pulse Rate [ [employer] ] Respiratory 18 18 16 Rate Blood Pressure 120/80 113/80 110/78 Blood Pressure [Left Arm Sitting] Blood Pressure [Right Arm Sitting] O2 Sat by Pulse 97 97 98 Oximetry 03/26/20 03/26/20 03/26/20 11:30 11:45 14:00 Temperature Pulse Rate 92 Pulse Rate [ 80 [employer] ] Respiratory 16 16 Rate Blood Pressure 81/62 Blood Pressure 83/65 95/61 [Left Arm Sitting] Blood Pressure 79/54 [Right Arm Sitting] O2 Sat by Pulse 97 96 Oximetry 03/26/20 03/26/20 03/26/20 14:23 15:32 15:34 Temperature 97.2 F L Pulse Rate Pulse Rate [ 91 91 [employer] ] Respiratory 18 18 Rate Blood Pressure Blood Pressure 85/53 83/54 [Left Arm Sitting] Blood Pressure [Right Arm Sitting] O2 Sat by Pulse 99 Oximetry 03/26/20 03/26/20 03/26/20 16:26 16:55 17:36 Temperature 97.5 F L Pulse Rate Pulse Rate [ 240 H [employer] ] Respiratory 16 Rate Blood Pressure Blood Pressure 87/65 95/67 [Left Arm Sitting] Blood Pressure 90/63 [Right Arm Sitting] O2 Sat by Pulse 92 L Oximetry Medical Decision Making - Medical Decision Making Upon arrival the patient was placed into room 8. A thorough history and p hysical exam is performed. Laboratory studies were conducted. The patient is reporting shortness of breath and therefore he is sent over for chest x-ray. Laboratory studies are remarkable for a potassium of 5.6. Troponin is 0.035. BNP 11,000. The patient was given a dose of Lasix. I also gave him an albuterol treatment, 10 units of insulin and an amp of dextrose because of his hyperkalemia. I recommended hospital admission for which the patient did agree to. I discussed the case with Dr. Giang who accepted admission. I will place social work on consult. Patient remained in stable condition awaiting a bed on the floor - Lab Data Result diagrams: 04/01/20 08:14 04/01/20 08:14 Lab Results 03/25/20 03/25/2020 Range/Units 16:21 16:21 16:45 WBC 5.3 (3.8-10.6) k/uL RBC 4.03 L (4.30-5.90) m/uL Hgb 10.1 L (13.0-17.5) gm/dL Hct 33.9 L (39.0-53.0) % MCV 84.1 (80.0-100.0) fL MCH 25.0 (25.0-35.0) pg MCHC 29.8 L (31.0-37.0) g/dL RDW 16.3 H (11.5-15.5) % Plt Count 161 (150-450) k/uL Neutrophils % % Neutrophils % (Manual) 46 % Band Neutrophils % % Lymphocytes % % Lymphocytes % (Manual) 50 % Monocytes % % Monocytes % (Manual) 3 % Eosinophils % % Eosinophils % (Manual) 1 % Basophils % % Neutrophils # (1.3-7.7) k/uL Neutrophils # (Manual) 2.44 (1.3-7.7) k/uL Lymphocytes # (1.0-4.8) k/uL Lymphocytes # (Manual) 2.65 (1.0-4.8) k/uL Monocytes # (0-1.0) k/uL Monocytes # (Manual) 0.16 (0-1.0) k/uL Eosinophils # (0-0.7) k/uL Eosinophils # (Manual) 0.05 (0-0.7) k/uL Basophils # (0-0.2) k/uL Nucleated RBCs 0 (0-0) /100 WBC Manual Slide Review Performed Hypochromasia Marked Poikilocytosis Slight Anisocytosis Slight Target Cells Ovalocytes Fragmented RBCs PT (9.0-12.0) sec INR (<1.2) APTT (22.0-30.0) sec Sodium 137 (137-145) mmol/L Potassium 5.6 H (3.5-5.1) mmol/L Chloride 106 (98-107) mmol/L Carbon Dioxide 22 (22-30) mmol/L Anion Gap 9 mmol/L BUN 22 H (9-20) mg/dL Creatinine 1.44 H (0.66-1.25) mg/dL Est GFR (CKD-EPI)AfAm 55 (>60 ml/min/1.73 sqM) Est GFR (CKD-EPI)NonAf 47 (>60 ml/min/1.73 sqM) Glucose 93 (74-99) mg/dL POC Glucose (mg/dL) (75-99) mg/dL POC Glu Turkey Cleaner ID Plasma Lactic Acid Alexey (0.7-2.0) mmol/L Calcium 9.4 (8.4-10.2) mg/dL Total Bilirubin 0.9 (0.2-1.3) mg/dL AST 28 (17-59) U/L ALT 41 (4-49) U/L Alkaline Phosphatase 122 (38-126) U/L Creatine Kinase 63 (55-170) U/L Troponin I (0.000-0.034) ng/mL NT-Pro-B Natriuret Pep 82322 pg/mL Total Protein 7.6 (6.3-8.2) g/dL Albumin 4.1 (3.5-5.0) g/dL Urine Color Urine Appearance (Clear) Urine pH (5.0-8.0) Ur Specific [place] (1.001-1.035) Urine Protein (Negative) Urine Glucose (UA) (Negative) Urine Ketones (Negative) Urine Blood (Negative) Urine Nitrite (Negative) Urine Bilirubin (Negative) Urine Urobilinogen (<2.0) mg/dL Ur Leukocyte Esterase (Negative) Urine RBC (0-5) /hpf Urine WBC (0-5) /hpf Ur Squamous Epith Cells (0-4) /hpf Hyaline Casts (0-2) /lpf Coronavirus (PCR) (Not Detected) 03/25/20 03/25/20 03/25/20 Range/Units 16:48 16:48 16:48 WBC (3.8-10.6) k/uL RBC (4.30-5.90) m/uL Hgb (13.0-17.5) gm/dL Hct (39.0-53.0) % MCV (80.0-100.0) fL MCH (25.0-35.0) pg MCHC (31.0-37.0) g/dL RDW (11.5-15.5) % Plt Count (150-450) k/uL Neutrophils % % Neutrophils % (Manual) % Band Neutrophils % % Lymphocytes % % Lymphocytes % (Manual) % Monocytes % % Monocytes % (Manual) % Eosinophils % % Eosinophils % (Manual) % Basophils % % Neutrophils # (1.3-7.7) k/uL Neutrophils # (Manual) (1.3-7.7) k/uL Lymphocytes # (1.0-4.8) k/uL Lymphocytes # (Manual) (1.0-4.8) k/uL Monocytes # (0-1.0) k/uL Monocytes # (Manual) (0-1.0) k/uL Eosinophils # (0-0.7) k/uL Eosinophils # (Manual) (0-0.7) k/uL Basophils # (0-0.2) k/uL Nucleated RBCs (0-0) /100 WBC Manual Slide Review Hypochromasia Poikilocytosis Anisocytosis Target Cells Ovalocytes Fragmented RBCs PT 12.6 H (9.0-12.0) sec INR 1.3 H (<1.2) APTT 22.9 (22.0-30.0) sec Sodium (137-145) mmol/L Potassium (3.5-5.1) mmol/L Chloride (98-107) mmol/L Carbon Dioxide (22-30) mmol/L Anion Gap mmol/L BUN (9-20) mg/dL Creatinine (0.66-1.25) mg/dL Est GFR (CKD-EPI)AfAm (>60 ml/min/1.73 sqM) Est GFR (CKD-EPI)NonAf (>60 ml/min/1.73 sqM) Glucose (74-99) mg/dL POC Glucose (mg/dL) (75-99) mg/dL POC Glu Turkey Cleaner ID Plasma Lactic Acid Alexey 1.3 (0.7-2.0) mmol/L Calcium (8.4-10.2) mg/dL Total Bilirubin (0.2-1.3) mg/dL AST (17-59) U/L ALT (4-49) U/L Alkaline Phosphatase (38-126) U/L Creatine Kinase (55-170) U/L Troponin I 0.035 H* (0.000-0.034) ng/mL NT-Pro-B Natriuret Pep pg/mL Total Protein (6.3-8.2) g/dL Albumin (3.5-5.0) g/dL Urine Color Urine Appearance (Clear) Urine pH (5.0-8.0) Ur Specific [place] (1.001-1.035) Urine Protein (Negative) Urine Glucose (UA) (Negative) Urine Ketones (Negative) Urine Blood (Negative) Urine Nitrite (Negative) Urine Bilirubin (Negative) Urine Urobilinogen (<2.0) mg/dL Ur Leukocyte Esterase (Negative) Urine RBC (0-5) /hpf Urine WBC (0-5) /hpf Ur Squamous Epith Cells (0-4) /hpf Hyaline Casts (0-2) /lpf Coronavirus (PCR) (Not Detected) 03/25/20 03/25/20 03/25/20 Range/Units 19:51 20:26 22:34 WBC (3.8-10.6) k/uL RBC (4.30-5.90) m/uL Hgb (13.0-17.5) gm/dL Hct (39.0-53.0) % MCV (80.0-100.0) fL MCH (25.0-35.0) pg MCHC (31.0-37.0) g/dL RDW (11.5-15.5) % Plt Count (150-450) k/uL Neutrophils % % Neutrophils % (Manual) % Band Neutrophils % % Lymphocytes % % Lymphocytes % (Manual) % Monocytes % % Monocytes % (Manual) % Eosinophils % % Eosinophils % (Manual) % Basophils % % Neutrophils # (1.3-7.7) k/uL Neutrophils # (Manual) (1.3-7.7) k/uL Lymphocytes # (1.0-4.8) k/uL Lymphocytes # (Manual) (1.0-4.8) k/uL Monocytes # (0-1.0) k/uL Monocytes # (Manual) (0-1.0) k/uL Eosinophils # (0-0.7) k/uL Eosinophils # (Manual) (0-0.7) k/uL Basophils # (0-0.2) k/uL Nucleated RBCs (0-0) /100 WBC Manual Slide Review Hypochromasia Poikilocytosis Anisocytosis Target Cells Ovalocytes Fragmented RBCs PT (9.0-12.0) sec INR (<1.2) APTT (22.0-30.0) sec Sodium (137-145) mmol/L Potassium (3.5-5.1) mmol/L Chloride (98-107) mmol/L Carbon Dioxide (22-30) mmol/L Anion Gap mmol/L BUN (9-20) mg/dL Creatinine (0.66-1.25) mg/dL Est GFR (CKD-EPI)AfAm (>60 ml/min/1.73 sqM) Est GFR (CKD-EPI)NonAf (>60 ml/min/1.73 sqM) Glucose (74-99) mg/dL POC Glucose (mg/dL) (75-99) mg/dL POC Glu Turkey Cleaner ID Plasma Lactic Acid Alexey (0.7-2.0) mmol/L Calcium (8.4-10.2) mg/dL Total Bilirubin (0.2-1.3) mg/dL AST (17-59) U/L ALT (4-49) U/L Alkaline Phosphatase (38-126) U/L Creatine Kinase (55-170) U/L Troponin I 0.033 (0.000-0.034) ng/mL NT-Pro-B Natriuret Pep pg/mL Total Protein (6.3-8.2) g/dL Albumin (3.5-5.0) g/dL Urine Color Yellow Urine Appearance Clear (Clear) Urine pH 6.0 (5.0-8.0) Ur Specific [place] 1.014 (1.001-1.035) Urine Protein Trace H (Negative) Urine Glucose (UA) Negative (Negative) Urine Ketones Negative (Negative) Urine Blood Negative (Negative) Urine Nitrite Negative (Negative) Urine Bilirubin Negative (Negative) Urine Urobilinogen <2.0 (<2.0) mg/dL Ur Leukocyte Esterase Moderate H (Negative) Urine RBC 1 (0-5) /hpf Urine WBC 18 H (0-5) /hpf Ur Squamous Epith Cells <1 (0-4) /hpf Hyaline Casts 7 H (0-2) /lpf Coronavirus (PCR) Not Detected (Not Detected) 03/25/20 03/26/20 03/26/20 Range/Units 22:59 00:53 03:20 WBC (3.8-10.6) k/uL RBC (4.30-5.90) m/uL Hgb (13.0-17.5) gm/dL Hct (39.0-53.0) % MCV (80.0-100.0) fL MCH (25.0-35.0) pg MCHC (31.0-37.0) g/dL RDW (11.5-15.5) % Plt Count (150-450) k/uL Neutrophils % % Neutrophils % (Manual) % Band Neutrophils % % Lymphocytes % % Lymphocytes % (Manual) % Monocytes % % Monocytes % (Manual) % Eosinophils % % Eosinophils % (Manual) % Basophils % % Neutrophils # (1.3-7.7) k/uL Neutrophils # (Manual) (1.3-7.7) k/uL Lymphocytes # (1.0-4.8) k/uL Lymphocytes # (Manual) (1.0-4.8) k/uL Monocytes # (0-1.0) k/uL Monocytes # (Manual) (0-1.0) k/uL Eosinophils # (0-0.7) k/uL Eosinophils # (Manual) (0-0.7) k/uL Basophils # (0-0.2) k/uL Nucleated RBCs (0-0) /100 WBC Manual Slide Review Hypochromasia Poikilocytosis Anisocytosis Target Cells Ovalocytes Fragmented RBCs PT (9.0-12.0) sec INR (<1.2) APTT (22.0-30.0) sec Sodium 136 L (137-145) mmol/L Potassium 4.4 (3.5-5.1) mmol/L Chloride 104 (98-107) mmol/L Carbon Dioxide 22 (22-30) mmol/L Anion Gap 10 mmol/L BUN 26 H (9-20) mg/dL Creatinine 1.42 H (0.66-1.25) mg/dL Est GFR (CKD-EPI)AfAm 56 (>60 ml/min/1.73 sqM) Est GFR (CKD-EPI)NonAf 48 (>60 ml/min/1.73 sqM) Glucose 172 H (74-99) mg/dL POC Glucose (mg/dL) 79 (75-99) mg/dL POC Glu Turkey Cleaner ID Rosy Morales Plasma Lactic Acid Alexey (0.7-2.0) mmol/L Calcium 9.1 (8.4-10.2) mg/dL Total Bilirubin (0.2-1.3) mg/dL AST (17-59) U/L ALT (4-49) U/L Alkaline Phosphatase (38-126) U/L Creatine Kinase (55-170) U/L Troponin I 0.042 H* (0.000-0.034) ng/mL NT-Pro-B Natriuret Pep pg/mL Total Protein (6.3-8.2) g/dL Albumin (3.5-5.0) g/dL Urine Color Urine Appearance (Clear) Urine pH (5.0-8.0) Ur Specific [place] (1.001-1.035) Urine Protein (Negative) Urine Glucose (UA) (Negative) Urine Ketones (Negative) Urine Blood (Negative) Urine Nitrite (Negative) Urine Bilirubin (Negative) Urine Urobilinogen (<2.0) mg/dL Ur Leukocyte Esterase (Negative) Urine RBC (0-5) /hpf Urine WBC (0-5) /hpf Ur Squamous Epith Cells (0-4) /hpf Hyaline Casts (0-2) /lpf Coronavirus (PCR) (Not Detected) 03/26/20 03/26/20 03/27/20 Range/Units 03:20 03:20 06:01 WBC 5.9 6.9 (3.8-10.6) k/uL RBC 3.85 L 4.31 (4.30-5.90) m/uL Hgb 9.7 L 10.4 L (13.0-17.5) gm/dL Hct 31.8 L 35.3 L (39.0-53.0) % MCV 82.6 81.8 (80.0-100.0) fL MCH 25.1 24.1 L (25.0-35.0) pg MCHC 30.4 L 29.4 L (31.0-37.0) g/dL RDW 16.3 H 16.7 H (11.5-15.5) % Plt Count 157 185 (150-450) k/uL Neutrophils % 68 % Neutrophils % (Manual) 80 % Band Neutrophils % 1 % Lymphocytes % 21 % Lymphocytes % (Manual) 17 % Monocytes % 7 % Monocytes % (Manual) 1 % Eosinophils % 2 % Eosinophils % (Manual) 1 % Basophils % 0 % Neutrophils # 4.7 (1.3-7.7) k/uL Neutrophils # (Manual) 4.70 (1.3-7.7) k/uL Lymphocytes # 1.4 (1.0-4.8) k/uL Lymphocytes # (Manual) 1.00 (1.0-4.8) k/uL Monocytes # 0.5 (0-1.0) k/uL Monocytes # (Manual) 0.06 (0-1.0) k/uL Eosinophils # 0.1 (0-0.7) k/uL Eosinophils # (Manual) 0.06 (0-0.7) k/uL Basophils # 0.0 (0-0.2) k/uL Nucleated RBCs 0 (0-0) /100 WBC Manual Slide Review Performed Hypochromasia Marked Marked Poikilocytosis Slight Slight Anisocytosis Slight Slight Target Cells Present Ovalocytes Present Fragmented RBCs Present PT (9.0-12.0) sec INR (<1.2) APTT (22.0-30.0) sec Sodium 137 (137-145) mmol/L Potassium 4.8 (3.5-5.1) mmol/L Chloride 106 (98-107) mmol/L Carbon Dioxide 23 (22-30) mmol/L Anion Gap 8 mmol/L BUN 26 H (9-20) mg/dL Creatinine 1.48 H (0.66-1.25) mg/dL Est GFR (CKD-EPI)AfAm 53 (>60 ml/min/1.73 sqM) Est GFR (CKD-EPI)NonAf 46 (>60 ml/min/1.73 sqM) Glucose 121 H (74-99) mg/dL POC Glucose (mg/dL) (75-99) mg/dL POC Glu Turkey Cleaner ID Plasma Lactic Acid Alexey (0.7-2.0) mmol/L Calcium 9.1 (8.4-10.2) mg/dL Total Bilirubin (0.2-1.3) mg/dL AST (17-59) U/L ALT (4-49) U/L Alkaline Phosphatase (38-126) U/L Creatine Kinase (55-170) U/L Troponin I (0.000-0.034) ng/mL NT-Pro-B Natriuret Pep pg/mL Total Protein (6.3-8.2) g/dL Albumin (3.5-5.0) g/dL Urine Color Urine Appearance (Clear) Urine pH (5.0-8.0) Ur Specific [place] (1.001-1.035) Urine Protein (Negative) Urine Glucose (UA) (Negative) Urine Ketones (Negative) Urine Blood (Negative) Urine Nitrite (Negative) Urine Bilirubin (Negative) Urine Urobilinogen (<2.0) mg/dL Ur Leukocyte Esterase (Negative) Urine RBC (0-5) /hpf Urine WBC (0-5) /hpf Ur Squamous Epith Cells (0-4) /hpf Hyaline Casts (0-2) /lpf Coronavirus (PCR) (Not Detected) 03/27/20 Range/Units 06:01 WBC (3.8-10.6) k/uL RBC (4.30-5.90) m/uL Hgb (13.0-17.5) gm/dL Hct (39.0-53.0) % MCV (80.0-100.0) fL MCH (25.0-35.0) pg MCHC (31.0-37.0) g/dL RDW (11.5-15.5) % Plt Count (150-450) k/uL Neutrophils % % Neutrophils % (Manual) % Band Neutrophils % % Lymphocytes % % Lymphocytes % (Manual) % Monocytes % % Monocytes % (Manual) % Eosinophils % % Eosinophils % (Manual) % Basophils % % Neutrophils # (1.3-7.7) k/uL Neutrophils # (Manual) (1.3-7.7) k/uL Lymphocytes # (1.0-4.8) k/uL Lymphocytes # (Manual) (1.0-4.8) k/uL Monocytes # (0-1.0) k/uL Monocytes # (Manual) (0-1.0) k/uL Eosinophils # (0-0.7) k/uL Eosinophils # (Manual) (0-0.7) k/uL Basophils # (0-0.2) k/uL Nucleated RBCs (0-0) /100 WBC Manual Slide Review Hypochromasia Poikilocytosis Anisocytosis Target Cells Ovalocytes Fragmented RBCs PT (9.0-12.0) sec INR (<1.2) APTT (22.0-30.0) sec Sodium 139 (137-145) mmol/L Potassium 4.7 (3.5-5.1) mmol/L Chloride 100 (98-107) mmol/L Carbon Dioxide 28 (22-30) mmol/L Anion Gap 11 mmol/L BUN 29 H (9-20) mg/dL Creatinine 1.63 H (0.66-1.25) mg/dL Est GFR (CKD-EPI)AfAm 47 (>60 ml/min/1.73 sqM) Est GFR (CKD-EPI)NonAf 41 (>60 ml/min/1.73 sqM) Glucose 103 H (74-99) mg/dL POC Glucose (mg/dL) (75-99) mg/dL POC Glu Turkey Cleaner ID Plasma Lactic Acid Alexey (0.7-2.0) mmol/L Calcium 8.9 (8.4-10.2) mg/dL Total Bilirubin (0.2-1.3) mg/dL AST (17-59) U/L ALT (4-49) U/L Alkaline Phosphatase (38-126) U/L Creatine Kinase (55-170) U/L Troponin I (0.000-0.034) ng/mL NT-Pro-B Natriuret Pep pg/mL Total Protein (6.3-8.2) g/dL Albumin (3.5-5.0) g/dL Urine Color Urine Appearance (Clear) Urine pH (5.0-8.0) Ur Specific [place] (1.001-1.035) Urine Protein (Negative) Urine Glucose (UA) (Negative) Urine Ketones (Negative) Urine Blood (Negative) Urine Nitrite (Negative) Urine Bilirubin (Negative) Urine Urobilinogen (<2.0) mg/dL Ur Leukocyte Esterase (Negative) Urine RBC (0-5) /hpf Urine WBC (0-5) /hpf Ur Squamous Epith Cells (0-4) /hpf Hyaline Casts (0-2) /lpf Coronavirus (PCR) (Not Detected) - EKG Data EKG Comments: EKG demonstrates baseline artifact. Sinus rhythm with rate of 83. IL interval is 214. QRS 104. QTC 441. Inverted T-wave and ST depression in V6. Disposition Clinical Impression: Respiratory insufficiency, Pleural effusion, Fall, Back pain, Hyperkalemia Disposition: ADMITTED IP TO THIS [facility] Condition: Stable Is patient prescribed a controlled substance at d/c from ED?: No Decision to Admit Reason: Admit from EC Decision Date: 03/25/20 Decision Time: 19:06
--- NOTE | 2020-03-25 18:01 | XR ---
EXAMINATION TYPE: XR chest 2V DATE OF EXAM: 03/25/2020 COMPARISON: 01/31/2020 HISTORY: Difficulty breathing TECHNIQUE: 2 views FINDINGS: There is no heart failure nor confluent pneumonic infiltrate. Heart is enlarged. Costophren ic angles are fairly clear. There is tiny right pleural effusion. There are no hilar masses. There ar e chest leads. IMPRESSION: There is small right pleural effusion that appears new compared to old exam. There is car diomegaly increased compared to old exam. No obvious heart failure.
--- NOTE | 2020-03-25 18:03 | XR ---
EXAMINATION TYPE: XR lumbar spine 2 or 3V DATE OF EXAM: 03/25/2020 COMPARISON: NONE HISTORY: Pain TECHNIQUE: 3 views FINDINGS: Lumbar vertebra have normal alignment. Disc spaces are fairly normal. There is anterior kasandra dging osteophyte formation at L2-3 and L3-4. Abdominal aorta is atheromatous. Posterior elements are intact. Sacroiliac joints appear intact. IMPRESSION: Spondylotic changes. No fracture.
[2020-03-25] MEDS ORDERED: INSULIN REGULAR 100 UNIT/ML VIAL IV ONE (18:39)
[2020-03-25] MEDS ORDERED: ALBUTEROL NEBULIZED 2.5 MG/3 ML INHALATION STA (18:39)
[2020-03-25] MEDS ORDERED: DEXTROSE 50% SYRINGE 50 ML IVP STA (18:39)
[2020-03-25] MEDS ORDERED: NALOXONE 0.4 MG/ML 1 ML VIAL IV PRN (19:07)
[2020-03-25] MEDS ORDERED: FUROSEMIDE 10 MG/ML 4 ML VIAL IV STA (19:10)
[2020-03-25 20:48] LABS: Appearance,Urine Clear (Clear); Bilirubin,Urine Negative (Negative); Blood,Urine Negative (Negative); Color,Urine Yellow; Glucose,Urine (UA) Negative (Negative); Hyaline Casts,Urine 7 /lpf (0-2); Ketones,Urine Negative (Negative); Leukocyte Esterase,Urine Moderate (Negative); Nitrite,Urine Negative (Negative); Protein,Urine Trace (Negative); RBC,Urine 1 /hpf (0-5); Specific Gravity,Urine 1.014 (1.001-1.035); Squamous Epithelial Cell,Urine <1 /hpf (0-4); Urobilinogen,Urine <2.0 mg/dL (<2.0); WBC,Urine 18 /hpf (0-5)
[2020-03-25] MEDS ORDERED: HYDROmorphone 0.5 MG/0.5 ML SYRINGE IVP PRN (23:04)
[2020-03-25] MEDS ORDERED: LORazepam 0.5 MG TAB PO PRN (23:04)
[2020-03-25 23:10] LABS: Glucose,Whole Blood 79 mg/dL (75-99)
[2020-03-25] MEDS: FUROSEMIDE 10 MG/ML 4 ML VIAL IV SCH (23:44)
[2020-03-25] MEDS: HYDROcodone/APAP 5-325MG 1 EACH TAB PO PRN (23:47)
[2020-03-26 01:22] LABS: Calcium 9.1 mg/dL (8.4-10.2); Potassium 4.4 mmol/L (3.5-5.1)
--- NOTE | 2020-03-26 01:37 | HP ---
HISTORY AND PHYSICAL CHIEF COMPLAINTS: Shortness of breath and fall and back pain. HISTORY OF PRESENT ILLNESS: This 74-year-old gentleman with a past medical history of multiple medical problems including CAD, history of CHF, COPD, GERD, hypertension, hyperlipidemia, history of liver disease, history of myocardial infarction being followed Dr. Pandey in the outpatient setting, apparently resides with significant other. The patient is using a walker to ambulate. Patient also has electric scooter. The patient apparently complained of shortness of breath and EMS went to the house to find that the patient is wearing two layers of clothing and the patient also had nausea and abdominal discomfort. Patient had multiple falls. Patient complaining of severe back pain even on turning. A chest x-ray was done in the emergency room which I reviewed personally showed apparent small pleural effusion and increased cardiomegaly as well. The lumbar spine x-ray showed spondylitic changes. Patient admitted for further evaluation and treatment. There is no history of fever, rigors. No history of headache, loss of consciousness or seizures. Pneumonia suspected. PAST MEDICAL HISTORY: History of CAD, history of chest pain, history of COPD, GERD, hypertension, hyperlipidemia, myocardial infarction, history of adenoidectomy, history of cardiac catheterization. MEDICATIONS: Medications prior to admission, home medications are: 1. Valsartan 40 mg p.o. daily. 2. Loratadine. 3. Lipitor. 4. Brilinta. 5. Prilosec. 6. Cozaar. 7. Zyrtec. 8. ProAmatine. 9. Magnesium oxide. 10.Lasix. 11.Aldactone. 12.Lopressor. 13.Lioresal. 14.Flomax. 15.Penicillin VK. 16.Alprazolam. Doses reviewed. ALLERGIES: None. FAMILY HISTORY: History of myocardial infarction in the family. SOCIAL HISTORY: History of smoking, continued ongoing. REVIEW OF SYSTEMS: ENT: Diminished hearing and diminished vision. CARDIOVASCULAR SYSTEM: As mentioned earlier. RESPIRATORY SYSTEM: As mentioned earlier. GI: No nausea. : As mentioned earlier. NERVOUS SYSTEM: As mentioned earlier. ALLERGIES/IMMUNOLOGY: No asthma or hayfever. MUSCULOSKELETAL: As mentioned earlier. HEMATOLOGY: No history anemia. ENDOCRINE: No history of diabetes or hypothyroidism. CONSTITUTIONAL: As mentioned earlier. DERMATOLOGY: Negative. RHEUMATOLOGY: Negative. PSYCHIATRY: As mentioned earlier. PHYSICAL EXAMINATION: The patient is alert and oriented x3. Pulse 84, blood pressure 115/78, respirations 17, temperature normal, pulse ox 97% on room air. HEENT: Conjunctivae normal. Oral mucosa dry. NECK: No jugular venous distention. No carotid bruit. No lymph enlargement. CARDIOVASCULAR: S1, S2 muffled. No S3, no S4. RESPIRATORY: Breath sounds diminished at the bases. A few scattered rhonchi and crackles. ABDOMEN: Soft, nontender. No mass palpable. LEGS: Minimal edema. NERVOUS SYSTEM: Diffusely weak. EXAMINATION OF THE BACK: Some tenderness. SKIN: No ulcers. JOINTS: No active deforming arthropathy. LABS: WBC 5.3, hemoglobin 10.1. INR 1.3. Sodium 137, potassium 5.6. Creatinine is 1.44 and baseline creatinine was 1.57. Troponin 0.035. NT proBNP is 11,000.UA shows 18 WBCs. ASSESSMENT: 1. Congestive heart failure acute exacerbation with acute on chronic systolic dysfunction ejection fraction less than 20%, with cardiomyopathy. 2. Severe pulmonary hypertension on the previous 2D echo. 3. History of recent respiratory failure from congestive heart failure acute exacerbation. 4. Elevated troponin 0.035 of indeterminate origin could be from the recent remnant of the recent non ST elevation myocardial infarction. 5. Increased creatinine, chronic kidney disease stage 3. 6. Hyperkalemia from renal failure. 7. Possible acute urinary tract infection present on admission. 8. Anemia normocytic anemia of chronic disease. 9. History of falls and gait dysfunction. 10.History of severe back pain and degenerative joint disease and possible contusion. 11.History of coronary artery disease. 12.History of congestive heart failure. 13.Chronic obstructive pulmonary disease. 14.Gastroesophageal reflux disease. 15.Hypertension. 16.Hyperlipidemia. 17.Myocardial infarction. 18.History of degenerative joint disease. 19.History of pneumonia. 20.History of urinary tract infection with sepsis. 21.History of adenoidectomy. 22.History of continued ongoing nicotine dependence. 23.Gait dysfunction. 24.History of EtOH. 25.FULL CODE. RECOMMENDATIONS AND DISCUSSION: This 74-year-old gentleman presented with multiple complex medical issues as mentioned earlier. At this time, I recommend to continue current medications, continue symptomatic treatment. Otherwise, cautious diuretics. Will consult Cardiology. Otherwise, I would also recommend pain management, symptomatic treatment, empiric antibiotics for the UTI. Obtain the blood and urine cultures. PT, OT evaluation. The patient might require ECF rehab because of multiple complex medical issues, very frail state of the patient at this time. garden worker to investigate the home situation and otherwise further recommendations to follow. LAUROL / JUAQUINN: [id number] / MTDD
[2020-03-26 03:59] LABS: Calcium 9.1 mg/dL (8.4-10.2); Potassium 4.8 mmol/L (3.5-5.1)
[2020-03-26 04:27] LABS: Anisocytosis Slight; HCT 31.8 % (39.0-53.0); HGB 9.7 gm/dL (13.0-17.5); Hypochromasia Marked; MCH 25.1 pg (25.0-35.0); MCHC 30.4 g/dL (31.0-37.0); MCV 82.6 fL (80.0-100.0); Mean Platelet Volume 9.1; Platelet Count 157 k/uL (150-450); Poikilocytosis Slight; RBC 3.85 m/uL (4.30-5.90); RDW 16.3 % (11.5-15.5); WBC 5.9 k/uL (3.8-10.6)
[2020-03-26] MEDS ORDERED: HEPARIN SODIUM,PORCINE 5,000 UNIT/ML 1 ML VIAL IV PRN (05:05)
[2020-03-26] MEDS ORDERED: HEPARIN SODIUM,PORCINE 5,000 UNIT/ML 1 ML VIAL IV ONE (05:05)
[2020-03-26] MEDS ORDERED: HEPARIN SOD,PORK IN 0.45% NACL 25,000 UNIT in 0.45% NACL 1 250ML.BAG IV SCH (05:15)
[2020-03-26 06:54] LABS: Band Neutrophils % 1 %; Eosinophils # (M) 0.06 k/uL (0-0.7); Monocytes # (M) 0.06 k/uL (0-1.0); Neutrophils % (M) 80 %; Nucleated Red Blood Cells 0 /100 WBC (0-0); Total Cells Counted 100
[2020-03-26 06:56] LABS: Target Cells Present
[2020-03-26 06:57] LABS: RBC Fragments Present
[2020-03-26 07:05] LABS: Ovalocytes Present
[2020-03-26] MEDS: MIDODRINE 5 MG TAB PO SCH ×3 (07:32→16:28)
[2020-03-26] MEDS: ALPRAZolam 1 MG TAB PO SCH ×2 (07:32→17:48)
[2020-03-26] MEDS: TICAGRELOR 90 MG TAB PO SCH ×2 (07:33→16:28)
[2020-03-26] MEDS: TAMSULOSIN 0.4 MG CAP.ER.24H PO SCH (07:33)
[2020-03-26] MEDS: BACLOFEN 10 MG TAB PO SCH ×2 (07:34→16:28)
[2020-03-26] MEDS: MAGNESIUM OXIDE 400 MG TAB PO SCH ×2 (07:34→16:28)
[2020-03-26] MEDS: PANTOPRAZOLE 40 MG TABLET PO SCH (07:35)
[2020-03-26] MEDS: LORATADINE 10 MG TAB PO SCH (07:35)
[2020-03-26] MEDS: METOPROLOL TARTRATE 25 MG TAB PO SCH ×2 (07:36→16:28)
[2020-03-26] MEDS: HYDROcodone/APAP 5-325MG 1 EACH TAB PO PRN (07:43)
--- NOTE | 2020-03-26 09:30 | P.CRDCN ---
History of Present Illness Consult date: 03/26/20 Consult reason: congestive heart failure Chief complaint: Shortness of breath History of present illness: This is a 74-year-old gentleman who follows with Dr. Diop in the office. He has a history of hypertension, hyperlipidemia, prior liver disease, history of EtOH abuse, COPD, GERD, history of coronary artery disease with prior successful stenting of the LAD, chronic kidney disease, most recent hospitaliz ation was in January of this year. He presented to the hospital on this occasion with symptoms of shortness of breath, productive cough, and frequent falls. According to the patient, with even minimal exertion he states he can hardly breathe and it takes quite some time before his breathing stabilizes. Chest x- ray on presentation here showed small right pleural effusion which appears to be new as compared with prior exam. EKG on presentation here shows normal sinus rhythm with a first-degree AV block, left axis deviation and nonspecific ST-T wave changes. Blood pressure 110/70, heart rate in the 80s, afebrile. White blood cell count 5.9, hemoglobin 9.7, platelet count 157. Sodium 137, potassium 4.8, BUN 26, creatinine 1.4, troponins 0.035, platelet 33, 0.042. Upon review of prior admissions, patient persistently has abnormality in troponin. BNP level 11,000. At the time of my examination this morning, patient has a productive cough, he is somewhat short of breath, his biggest complaint is lower back discomfort and lower abdominal discomfort. Past Medical History Past Medical History: Coronary Artery Disease (CAD), Chest Pain / Angina, Heart Failure, COPD, GERD/Reflux, Hyperlipidemia, Hypertension, Liver Disease, Myocardial Infarction ([place]), Osteoarthritis (OA), Pneumonia Additional Past Medical History / Comment(s): 04/02/16 UTI WITH SEPSIS, STATES HE SELF CATHS chronic back PAIN ddd, osteoporosis , PT stated he pulls his own teeth. 01/21/2016 Patient states he self caths intermittently when needed, is SITKA bilaterally, edentulous and has 3 stents. Last Myocardial Infarction Date:: 2015 History of Any Multi-Drug Resistant Organisms: None Reported Past Surgical History: Adenoidectomy, Heart Catheterization, Hernia Repair, T onsillectomy Additional Past Surgical History / Comment(s): COLONOSCOPY,CATARACTS. recent heart cath -has triple vessel disease-no sx as of yet. Past Anesthesia/Blood Transfusion Reactions: No Reported Reaction Date of Last Stent Placement:: 2015 Past Psychological History: No Psychological Hx Reported Smoking Status: Current every day smoker Past Alcohol Use History: None Reported, Daily Past Drug Use History: None Reported - Past Family History Mother Family Medical History: Myocardial Infarction ([place]) Additional Family Medical History / Comment(s): Mother had a [place] in her 80s and . Brother(s) Family Medical History: CVA/TIA Sister(s) Family Medical History: CVA/TIA Father Family Medical History: No Reported History Additional Family Medical History / Comment(s): Father when pt was young from a drowning. Medications and Allergies Home Medications Medication Instructions Recorded Confirmed Type ALPRAZolam 1 mg PO BID@0530,17307/19/16 03/25/20 History Omeprazole [PriLOSEC] 20 mg PO BID@0530,172907/19/16 03/25/20 History Baclofen [Lioresal] 10 mg PO BID@0530,172901/31/17 03/25/20 History Atorvastatin Calcium [Lipitor] 80 mg PO HS@172910/30/19 03/25/20 History Cetirizine HCl [Zyrtec] 10 mg PO DAILY@52910/30/19 03/25/20 History Metoprolol Tartrate [Lopressor] 25 mg PO BID@0530,172910/30/19 03/25/20 History Ticagrelor [Brilinta] 90 mg PO BID@0530,172910/30/19 03/25/20 History Tamsulosin [Flomax] 0.4 mg PO DAILY@0530 01/27/20 03/25/20 History Furosemide [Lasix] 40 mg PO DAILY@52903/25/20 03/25/20 History Loratadine 10 mg PO DAILY@52903/25/20 03/25/20 History Losartan [Cozaar] 25 mg PO DAILY@52903/25/20 03/25/20 History Magnesium Oxide [Mag-Ox] 400 mg PO BID@0530,17303/25/20 03/25/20 History Midodrine [ProAmatine] 5 mg PO TID 03/25/20 03/25/20 History Penicillin V Potassium [Pen Vee K] 500 mg PO Q6H 03/25/20 03/25/20 History Spironolactone 25 mg PO DAILY@0530 03/25/20 03/25/20 History Valsartan 40 mg PO DAILY@0530 03/25/20 03/25/20 History Allergies Allergy/AdvReac Type Severity Reaction Status Date / Time No Known Allergies Allergy Verified 03/25/20 17:03 Physical Exam Vitals: Vital Signs Temp Pulse Resp BP Pulse Ox 03/26/20 07:39 98 F 84 16 110/78 98 03/26/20 06:48 96 18 113/80 97 03/26/20 00:46 84 18 120/80 97 03/25/20 19:49 84 17 115/78 97 03/25/20 19:39 87 16 03/25/20 19:28 85 16 03/25/20 16:57 16 03/25/20 16:55 80 16 109/82 99 03/25/20 15:16 97.5 F L 81 18 107/81 99 Intake and Output 03/25/20 03/26/20 03/26/20 22:59 06:59 14:59 Other: Weight 68.492 kg PHYSICAL EXAMINATION: GENERAL: 74-year-old gentleman in no acute distress at the time of my examination HEENT: Head is atraumatic, normocephalic. Pupils equal, round. Sclera anicteric. Conjunctiva are clear. Mucous membranes of the mouth are moist. Neck is supple. There is no elevated jugular venous pressure. No carotid bruit is heard. HEART EXAMINATION: Heart S1 and S2 normal CHEST EXAMINATION: Lungs reveal diminished air entry to the bases bilaterally, fine expiratory wheezing and coarse rhonchi that clear with cough. ABDOMEN: Soft, nontender. Bowel sounds are heard. No organomegaly noted. EXTREMITIES: 2+ peripheral pulses with no evidence of peripheral edema and no calf tenderness noted. NEUROLOGIC patient is awake, alert and oriented X3 . Results 03/26/20 03:20 03/26/20 03:20 Cardiac Enzymes 03/25/20 03/25/20 03/25/20 Range/Units 16:21 16:48 22:34 AST 28 (17-59) U/L Troponin I 0.035 H* 0.033 (0.000-0.034) ng/mL 03/26/20 Range/Units 03:20 AST (17-59) U/L Troponin I 0.042 H* (0.000-0.034) ng/mL Coagulation 03/25/20 Range/Units 16:48 PT 12.6 H (9.0-12.0) sec APTT 22.9 (22.0-30.0) sec CBC 03/25/20 03/26/20 Range/Units 16:21 03:20 WBC 5.3 5.9 (3.8-10.6) k/uL RBC 4.03 L 3.85 L (4.30-5.90) m/uL Hgb 10.1 L 9.7 L (13.0-17.5) gm/dL Hct 33.9 L 31.8 L (39.0-53.0) % Plt Count 161 157 (150-450) k/uL Comprehensive Metabolic Panel 03/25/20 03/26/20 03/26/20 Range/Units 16:21 00:53 03:20 Sodium 137 136 L 137 (137-145) mmol/L Potassium 5.6 H 4.4 4.8 (3.5-5.1) mmol/L Chloride 106 104 106 (98-107) mmol/L Carbon Dioxide 22 22 23 (22-30) mmol/L BUN 22 H 26 H 26 H (9-20) mg/dL Creatinine 1.44 H 1.42 H 1.48 H (0.66-1.25) mg/dL Glucose 93 172 H 121 H (74-99) mg/dL Calcium 9.4 9.1 9.1 (8.4-10.2) mg/dL AST 28 (17-59) U/L ALT 41 (4-49) U/L Alkaline Phosphatase 122 (38-126) U/L Total Protein 7.6 (6.3-8.2) g/dL Albumin 4.1 (3.5-5.0) g/dL Current Medications Generic Name Dose Route Start Last Admin Trade Name Freq PRN Reason Stop Dose Admin Hydrocodone Bitart/Acetaminophen 1 each 03/25/20 23:04 03/26/20 07:43 Mellott 5-325 PO 1 each Q6HR PRN Administration Pain Alprazolam 1 mg 03/26/20 05:30 03/26/20 07:32 Xanax PO 1 mg BID@0530,1730 TI Administration Atorvastatin Calcium 80 mg 03/26/20 17:30 Lipitor PO HS@1730 TI Baclofen 10 mg 03/26/20 05:30 03/26/20 07:34 Lioresal PO 10 mg BID@0530,1730 TI Administration Furosemide 40 mg 03/25/20 23:15 03/25/20 23:44 Lasix IV Not Given Q12HR [facility] Heparin Sodium (Porcine) 5,000 unit 03/26/20 09:00 Heparin SQ Q12HR [facility] Heparin Sodium (Porcine) 0 unit 03/26/20 05:05 Heparin IV PER PROTOCOL PRN Low PTT Protocol Hydromorphone HCl 0.5 mg 03/25/20 23:04 Dilaudid IVP Q3HR PRN Severe Pain Ceftriaxone Sodium 1 gm/ 50 mls @ 100 mls/hr 03/25/20 23:15 03/25/20 23:45 Sodium Chloride IVPB 100 mls/hr Q24H TI Administration Heparin Sodium/Sodium Chloride 250 mls @ 8.219 mls/hr 03/26/20 05:15 03/26/20 05:41 25,000 unit/ Sodium Chloride IV 12 units/kg/hr .Q24H TI 8.219 mls/hr Administration Protocol 12 UNITS/KG/HR Loratadine 10 mg 03/26/20 05:30 03/26/20 07:35 Claritin PO 10 mg DAILY@0530 [facility] Administration Lorazepam 0.5 mg 03/25/20 23:04 Ativan PO Q4HR PRN Anxiety Magnesium Oxide 400 mg 03/26/20 05:30 03/26/20 07:34 Mag-Ox PO 400 mg BID@0530,1730 TI Administration Metoprolol Tartrate 25 mg 03/26/20 05:30 03/26/20 07:36 Lopressor PO 25 mg BID@0530,1730 [facility] Administration Midodrine 5 mg 03/26/20 07:30 03/26/20 07:32 Proamatine PO 5 mg AC-TID TI Administration Naloxone HCl 0.2 mg 03/25/20 19:07 Narcan IV Q2M PRN Opioid Reversal Pantoprazole Sodium 40 mg 03/26/20 05:30 03/26/20 07:35 Protonix PO 40 mg DAILY@0530 TI Administration Tamsulosin HCl 0.4 mg 03/26/20 05:30 03/26/20 07:33 Flomax PO 0.4 mg DAILY@0530 TI Administration Ticagrelor 90 mg 03/26/20 05:30 03/26/20 07:33 Brilinta PO 90 mg BID@0530,1730 TI Administration Intake and Output 03/25/20 03/26/20 03/26/20 22:59 06:59 14:59 Other: Weight 68.492 kg 03/26/20 03:20 03/26/20 03:20 EKG Interpretations (text) EKG shows a normal sinus rhythm with first-degree AV block, left axis deviation and nonspecific ST-T wave changes Assessment and Plan Plan: Assessment and plan #1 symptoms of progressively worsening shortness of breath, evidence of congestive heart failure, BNP level 1I,000, systolic acute on chronic #2 COPD exacerbation with possible tracheobronchitis #3 severe pulmonary hypertension #4 abnormality in troponin, not consistent with acute coronary syndrome, likely secondary to hypoxia and abnormal renal function. Patient consistently has abnormality in troponin. #5 chronic anemia #6 frequent falls with history of chronic back pain #7 coronary artery disease with prior LAD stenting #8 COPD #9 hypertension #10 hyperlipidemia #11 history of EtOH abuse #12 history of liver disease #13 nicotine dependence #14 UTI Plan We will obtain an echocardiogram with Doppler study. Most recent echo performed showed an ejection fraction of 20%. Continue IV Lasix, continue to monitor the intake and output along with daily weights and daily lytes BUN and creatinine. Patient is also on IV heparin along with subcu heparin, which we will discontinue. Continue metoprolol, Cozaar, if patient's potassium remained stable, we'll start the patient on Aldactone. DNP note has been reviewed, I agree with a documented findings and plan of care. Patient was seen and examined.
[2020-03-26] MEDS: FUROSEMIDE 10 MG/ML 4 ML VIAL IV SCH ×3 (11:32→19:52)
[2020-03-26] MEDS: HEPARIN SODIUM,PORCINE 5,000 UNIT/ML 1 ML VIAL SQ SCH ×2 (11:53→19:52)
[2020-03-26] MEDS: ATORVASTATIN 80 MG TAB PO SCH (16:28)
--- NOTE | 2020-03-26 19:04 | PN ---
PROGRESS NOTE DATE OF SERVICE: 03/26/2020 This 74-year-old gentleman who was admitted with CHF, acute exacerbation, had features of cardiomyopathy. Patient had severe pulmonary hypertension as well. The patient was given diuretics. The creatinine is slightly elevated at 1.48 at this time. The troponin is also elevated at 0.042. Currently the patient is on twice-daily IV Lasix. Cardiology is also following the patient closely. Past medical history reviewed. REVIEW OF SYSTEMS: CARDIOVASCULAR SYSTEM: As mentioned earlier. RESPIRATORY SYSTEM: As mentioned earlier. GI: No nausea, vomiting. : No dysuria or retention. NERVOUS SYSTEM: No numbness, weakness. CURRENT MEDICATIONS: Reviewed. They include: 1. Levering 1 q.6 p.r.n. 2. Xanax 1 mg b.i.d. 3. Lipitor 80 mg at bedtime. 4. Lioresal 110 mg b.i.d. 5. Rocephin 1 gram. 6. Lasix. 7. Heparin. 8. Dilaudid. 9. Claritin. 10.Ativan. 11.Magnesium oxide. 12.Lopressor. 13.Narcan. 14.Protonix. 15.Flomax. 16.Brilinta. PHYSICAL EXAMINATION: Patient is alert and oriented x3. Pulse 91, blood pressure 83/54, respiration 18, temperature 97.2, pulse ox 99% on room air. HEENT: Conjunctivae normal. Oral mucosa moist. NECK: No jugular venous distention. No carotid bruit. No lymph node enlargement. CARDIOVASCULAR SYSTEM: S1, S2 muffled. RESPIRATORY SYSTEM: Breath sounds diminished at the bases. A few scattered rhonchi and crackles. ABDOMEN: Soft, non-tender. LEGS: No edema. No swelling. NERVOUS SYSTEM: No focal deficit. LABS: WBC 5.9 hemoglobin 9.7. Creatinine is 1.48 and troponin 0.042. UA noted. ASSESSMENT: 1. Congestive heart failure, acute exacerbation, with possibly acute on chronic systolic dysfunction, ejection fraction less than 20%, with ischemic cardiomyopathy. 2. Severe pulmonary hypertension on previous two-dimensional echocardiogram. 3. History of recent respiratory failure from congestive heart failure, acute exacerbation. 4. Elevated troponin at 0.035, indeterminate in origin. Could be from the recent of [id number]-elevation myocardial infarction. 5. Increased creatinine with chronic kidney disease, stage 3. 6. Hyperkalemia from renal failure. 7. Relative hypotension and cardiogenic shock. 8. Possible acute urinary tract infection, present on admission. 9. Anemia, normocytic anemia of chronic disease. 10.History of falls and gait dysfunction. 11.History of severe back pain and degenerative joint disease and possible contusion. 12.History of coronary artery disease. 13.History of congestive heart failure. 14.Chronic obstructive pulmonary disease. 15.History of gastroesophageal reflux disease. 16.Hypertension. 17.Hyperlipidemia. 18.History of myocardial infarction. 19.History of degenerative joint disease. 20.History of pneumonia. 21.History of urinary tract infection with sepsis. 22.History of adenoidectomy. 23.History of continued ongoing nicotine dependence. 24.History of gait dysfunction. 25.History of ETOH. 26.FULL CODE. RECOMMENDATIONS AND DISCUSSION: In this 74-year-old gentleman who presented with multiple medical issues, I would recommend to continue the current medications, continue with symptomatic treatment. Otherwise I would optimize the fluid/electrolyte balance and closely follow with Cardiology. The patient appears to be in negative balance at this time. Repeat labs will be ordered and repeat chest x-ray also will be ordered. Continue the rest of the medications, including DVT prophylaxis and antibiotics for the UTI. The cultures are negative so far. Continue to monitor. Further recommendations to follow. A copy of this dictation is being forwarded to Dr. Pandey, who is the primary physician. LINDA / RENEE: [id number] / MTDD
[2020-03-27] MEDS: HYDROcodone/APAP 5-325MG 1 EACH TAB PO PRN ×2 (04:25→12:02)
[2020-03-27] MEDS: MAGNESIUM OXIDE 400 MG TAB PO SCH ×2 (05:33→16:54)
[2020-03-27] MEDS: TICAGRELOR 90 MG TAB PO SCH ×2 (05:33→16:55)
[2020-03-27] MEDS: PANTOPRAZOLE 40 MG TABLET PO SCH (05:33)
[2020-03-27] MEDS: BACLOFEN 10 MG TAB PO SCH ×2 (05:33→16:55)
[2020-03-27] MEDS: METOPROLOL TARTRATE 25 MG TAB PO SCH ×2 (05:33→16:59)
[2020-03-27] MEDS: TAMSULOSIN 0.4 MG CAP.ER.24H PO SCH (05:33)
[2020-03-27] MEDS: LORATADINE 10 MG TAB PO SCH (05:33)
[2020-03-27] MEDS: ALPRAZolam 1 MG TAB PO SCH ×2 (05:33→16:54)
[2020-03-27] MEDS: MIDODRINE 5 MG TAB PO SCH ×3 (06:14→16:54)
--- NOTE | 2020-03-27 07:06 | ECHOF ---
Referral Reason:sob, chronic systolic hf MEASUREMENTS -------- HEIGHT: 172.7 cm WEIGHT: 68.5 kg BP: RVIDd: 3.8 cm (< 3.3) IVSd: 0.9 cm (0.6 - 1.1) LVIDd: 5.8 cm (3.9 - 5.3) LVPWd: 1.2 cm (0.6 - 1.1) IVSs: 0.9 cm LVIDs: 5.6 cm LVPWs: 1.2 cm LAESV Index (A-L): 39.77 ml/m IVSd: 2.7 cm (0.6 - 1.1) Ao Diam: 2.9 cm (2.0 - 3.7) AV Cusp: 2.4 cm (1.5 - 2.6) LA Diam: 3.9 cm (2.7 - 3.8) MV EXCURSION: 10.065 mm (> 18.000) MV EF SLOPE: 29 mm/s (70 - 150) EPSS: 2.3 cm MV E Eduard: 0.78 m/s MV DecT: 241 ms MV A Eduard: 0.29 m/s MV E/A Ratio: 2.74 RAP: 5.00 mmHg RVSP: 11.16 mmHg TAPSE: 20.39 mm FINDINGS -------- Sinus rhythm. This was a technically good study. The left ventricular size is normal. There is borderline concentric left ventricular hypertrophy. There is severe global hypokinesis of LV . Overall left ventricular systolic function is severely impaired with, an EF between 20 - 25 %. Increased LAP Grade 3 Diastolic Dysfunction. The right ventricle is mild to moderately enlarged. LA is moderately dilated 34-39 ml/m2 The right atrial size is normal. The aortic valve is trileaflet and appears structurally normal. The mitral valve is normal. The mitral valve leaflets are mildly thickened. [id number] mitr al regurgitation is present. The tricuspid valve appears structurally normal. Mild tricuspid regurgitation present. Right vent ricular systolic pressure is normal at < 35 mmHg. There is no pulmonic regurgitation present. The aortic root size is normal. IVC Not well visulized. There is no pericardial effusion. CONCLUSIONS -------- 1. Sinus rhythm. 2. This was a technically good study. 3. The left ventricular size is normal. 4. There is borderline concentric left ventricular hypertrophy. 5. There is severe global hypokinesis of LV . 6. Overall left ventricular systolic function is severely impaired with, an EF between 20 - 25 %. 7. Increased LAP Grade 3 Diastolic Dysfunction. 8. The right ventricle is mild to moderately enlarged. 9. LA is moderately dilated 34-39 ml/m2 10. The right atrial size is normal. 11. The aortic valve is trileaflet and appears structurally normal. 12. The mitral valve is normal. 13. The mitral valve leaflets are mildly thickened. 14. Jfgs-ii-vxxiyvwn mitral regurgitation is present. 15. The tricuspid valve appears structurally normal. 16. Mild tricuspid regurgitation present. 17. Right ventricular systolic pressure is normal at < 35 mmHg. 18. There is no pulmonic regurgitation present. 19. The aortic root size is normal. 20. IVC Not well visulized. 21. There is no pericardial effusion. CAR ESCORT: Alma Rosa Edge RDCS
[2020-03-27 07:31] LABS: Anisocytosis Slight; Basophils % (A) 0 %; Eosinophils # (A) 0.1 k/uL (0-0.7); Eosinophils % (A) 2 %; HCT 35.3 % (39.0-53.0); HGB 10.4 gm/dL (13.0-17.5); Hypochromasia Marked; Lymphocytes # (A) 1.4 k/uL (1.0-4.8); Lymphocytes % (A) 21 %; MCH 24.1 pg (25.0-35.0); MCHC 29.4 g/dL (31.0-37.0); MCV 81.8 fL (80.0-100.0); Mean Platelet Volume 8.8; Monocytes # (A) 0.5 k/uL (0-1.0); Monocytes % (A) 7 %; Neutrophils # (A) 4.7 k/uL (1.3-7.7); Neutrophils % (A) 68 %; Platelet Count 185 k/uL (150-450); Poikilocytosis Slight; RBC 4.31 m/uL (4.30-5.90); RDW 16.7 % (11.5-15.5); WBC 6.9 k/uL (3.8-10.6)
--- NOTE | 2020-03-27 07:33 | XR ---
EXAMINATION TYPE: XR chest 1V portable DATE OF EXAM: 03/27/2020 COMPARISON: 03/25/2020 INDICATION: CHF TECHNIQUE: Single frontal view of the chest is obtained. FINDINGS: The heart size is normal. The pulmonary vasculature is normal. The lungs are clear. IMPRESSION: 1. No acute pulmonary process.
[2020-03-27 07:44] LABS: Calcium 8.9 mg/dL (8.4-10.2); Potassium 4.7 mmol/L (3.5-5.1)
[2020-03-27] MEDS: HEPARIN SODIUM,PORCINE 5,000 UNIT/ML 1 ML VIAL SQ SCH ×2 (08:27→19:43)
[2020-03-27] MEDS: FUROSEMIDE 10 MG/ML 4 ML VIAL IV SCH ×2 (08:28→19:43)
[2020-03-27] MEDS ORDERED: LOSARTAN 25 MG TAB PO SCH (09:00)
[2020-03-27] MEDS: LOSARTAN 25 MG TAB PO SCH (12:02)
--- NOTE | 2020-03-27 12:13 | P.PN ---
Subjective Progress Note Date: 03/27/20 This is a 74-year-old gentleman who follows with Dr. Diop in the office. He has a history of hypertension, hyperlipidemia, prior liver disease, history of EtOH abuse, COPD, GERD, history of coronary artery disease with prior successful stenting of the LAD, chronic kidney disease, most recent h ospitalization was in January of this year. He presented to the hospital on this occasion with symptoms of shortness of breath, productive cough, and frequent falls. According to the patient, with even minimal exertion he states he can hardly breathe and it takes quite some time before his breathing stabilizes. Chest x-ray on presentation here showed small right pleural effusion which appears to be new as compared with prior exam. EKG on presentation here shows normal sinus rhythm with a first-degree AV block, left axis deviation and nonspecific ST-T wave changes. Blood pressure 110/70, heart rate in the 80s, afebrile. White blood cell count 5.9, hemoglobin 9.7, platelet count 157. Sodi um 137, potassium 4.8, BUN 26, creatinine 1.4, troponins 0.035, platelet 33, 0.042. Upon review of prior admissions, patient persistently has abnormality in troponin. BNP level 11,000. At the time of my examination this morning, patient has a productive cough, he is somewhat short of breath, his biggest complaint is lower back discomfort and lower abdominal discomfort. 03/27/2020 Patient was seen and examined this morning, complaining of significant lower back pain. He does state that his breathing today is improved as compared with yesterday. His weight is down. Blood pressure 105/60 with a heart rate of 90, 94% on room air. White blood cell count 6.9, hemoglobin 10.4, platelet count 185. Sodium 139, potassium 4.7, BUN 29, creatinine 1.6. Objective - Vital Signs Vital signs: Vital Signs Temp 97.7 F 03/27/20 11:56 Pulse 98 03/27/20 11:56 Resp 16 03/27/20 11:56 BP 105/65 03/27/20 11:56 Pulse Ox 94 L 03/27/20 11:56 Intake & Output 03/26/20 03/27/20 03/27/20 18:59 06:59 18:59 Intake Total 480 Output Total 600 2650 Balance -120 -2650 Weight 68.492 kg 63.4 kg Intake: Oral 480 Output: Urine 600 2650 Other: Voiding Method Indwelling Catheter Indwelling Catheter Indwelling Catheter - Exam PHYSICAL EXAMINATION: GENERAL: 74-year-old gentleman in no acute distress at the time of my examination, complaining of lower back pain HEENT: Head is atraumatic, normocephalic. Pupils equal, round. Sclera anicteric. Conjunctiva are clear. Mucous membranes of the mouth are moist. Neck is supple. There is no elevated jugular venous pressure. No carotid bruit is heard. HEART EXAMINATION: Heart S1 and S2 normal CHEST EXAMINATION: Lungs reveal diminished air entry to the bases bilaterally, fine expiratory wheezing and coarse rhonchi throughout ABDOMEN: Soft, nontender. Bowel sounds are heard. No organomegaly noted. EXTREMITIES: 2+ peripheral pulses with no evidence of peripheral edema and no calf tenderness noted. NEUROLOGIC patient is awake, alert and oriented X3 . - Labs CBC & Chem 7: 03/27/20 06:01 03/27/20 06:01 Labs: Abnormal Lab Results - Last 24 Hours (Table) 03/27/20 03/27/20 Range/Units 06:01 06:01 Hgb 10.4 L (13.0-17.5) gm/dL Hct 35.3 L (39.0-53.0) % MCH 24.1 L (25.0-35.0) pg MCHC 29.4 L (31.0-37.0) g/dL RDW 16.7 H (11.5-15.5) % BUN 29 H (9-20) mg/dL Creatinine 1.63 H (0.66-1.25) mg/dL Glucose 103 H (74-99) mg/dL Microbiology - Last 24 Hours (Table) 03/25/20 23:22 Blood Culture - Preliminary Blood No Growth after 24 hours 03/25/20 20:26 Urine Culture - Preliminary Urine,Voided Assessment and Plan Plan: Assessment and plan #1 symptoms of progressively worsening shortness of breath, evidence of congestive heart failure, BNP level 1I,000, systolic acute on chronic #2 COPD exacerbation with possible tracheobronchitis #3 severe pulmonary hypertension #4 abnormality in troponin, not consistent with acute coronary syndrome, likely secondary to hypoxia and abnormal renal function. Patient consistently has abnormality in troponin. #5 chronic anemia #6 frequent falls with history of chronic back pain #7 coronary artery disease with prior LAD stenting #8 COPD #9 hypertension #10 hyperlipidemia #11 history of EtOH abuse #12 history of liver disease #13 nicotine dependence #14 UTI Plan Echocardiogram with Doppler study was performed which revealed an ejection fraction of 20-25%. LA was moderately dilated, RV moderately enlarged, mild to moderate mitral regurgitation. Continue current dose of IV Lasix for 24 hours, continue to monitor the patient's intake and output along with daily weights and daily lytes BUN and creatinine. DNP note has been reviewed, I agree with a documented findings and plan of care. Patient was seen and examined.
[2020-03-27] MEDS: ATORVASTATIN 80 MG TAB PO SCH (16:54)
--- NOTE | 2020-03-27 23:37 | PN ---
PROGRESS NOTE DATE OF SERVICE: 03/27/2020 This 74-year-old gentleman who was admitted with CHF acute exacerbation also had features of cardiomyopathy. The patient also had EtOH abuse as well. The patient is followed by Cardiology. BNP level is elevated and most recent 2D echo which was done yesterday was reviewed which showed ejection fraction of 20% and [id number] mitral regurgitation as well. The patient will be closely monitored. PAST MEDICAL HISTORY: Reviewed. REVIEW OF SYSTEMS: CARDIOVASCULAR SYSTEM: As mentioned earlier. RESPIRATORY SYSTEM: As mentioned earlier. GI: As mentioned earlier. : No dysuria. NERVOUS SYSTEM: No numbness or weakness. CURRENT MEDICATIONS: Current medications are reviewed and include: 1. [place] 5 mg q.6 p.r.n. 2. Xanax 1 mg b.i.d. 3. Lipitor 80 mg at bedtime. 4. Lioresal 10 mg b.i.d. 5. Rocephin 1 gram daily. 6. Lasix 40 mg IV b.i.d. 7. Heparin subcu b.i.d. 8. Dilaudid. 9. Claritin. 10.Ativan. 11.Cozaar. 12.Magnesium oxide. 13.Lopressor. 14.ProAmatine. 15.Narcan. 16.Protonix. 17.Flomax. 18.Brilinta. PHYSICAL EXAMINATION: Patient is alert and oriented x3. Pulse 105, blood pressure 84/51, respirations 16, temperature 97.6, pulse ox 94% on room air. HEENT: Conjunctivae normal. NECK: No jugular venous distention. CARDIOVASCULAR: S1, S2 muffled. RESPIRATORY: Breath sounds diminished at the bases. A few scattered rhonchi and crackles. ABDOMEN: Soft, nontender. No mass palpable. LEGS: No edema. No swelling. NERVOUS SYSTEM: No focal deficits. LABS: WBC 6.9, hemoglobin 10.4. Creatinine is 1.63 and troponin 0.042. ASSESSMENT: 1. Shortness of breath with congestive heart failure acute exacerbation with acute on chronic systolic dysfunction ejection fraction 20% with possible ischemic cardiomyopathy. 2. Severe pulmonary hypertension with previous 2D echo. 3. History of recent respiratory failure for congestive heart failure acute exacerbation. 4. Elevated troponin 0.035 indeterminate origin could be from the recent non ST elevation myocardial infarction. 5. Increased creatinine with chronic kidney disease stage 3. 6. Hyperkalemia from renal failure. 7. Relative hypotension and cardiogenic shock. 8. Possible acute urinary tract infection, present on admission. 9. Anemia, normocytic anemia of chronic disease. 10.History of falls and gait dysfunction. 11.History of severe back pain, degenerative joint disease and possible contusion. 12.History of coronary artery disease. 13.History of congestive heart failure. 14.Chronic obstructive pulmonary disease. 15.History of gastroesophageal reflux disease. 16.Hypertension. 17.Hyperlipidemia. 18.Myocardial infarction. 19.History of degenerative joint disease. 20.History of pneumonia. 21.Urinary tract infection with sepsis. 22.History of adenoidectomy. 23.History of continued ongoing nicotine dependence. 24.History of gait dysfunction. 25.History of EtOH. 26.FULL CODE. RECOMMENDATIONS AND DISCUSSION: Recommend to continue current medications, continue symptomatic treatment. Recommend continue with diuretics otherwise pain medications, pain clinic consultation. PT, OT evaluation, possible ECF rehab. Cardiology input appreciated. The patient had multiple complex medical issues. Further recommendations to follow. Discuss with the patient, understands and agrees. MMODL / IJN: [id number] / NIKIA
[2020-03-28] MEDS: TAMSULOSIN 0.4 MG CAP.ER.24H PO SCH (05:58)
[2020-03-28] MEDS: TICAGRELOR 90 MG TAB PO SCH ×2 (05:58→18:06)
[2020-03-28] MEDS: BACLOFEN 10 MG TAB PO SCH ×2 (05:58→18:06)
[2020-03-28] MEDS: MAGNESIUM OXIDE 400 MG TAB PO SCH ×2 (05:58→18:06)
[2020-03-28] MEDS: LORATADINE 10 MG TAB PO SCH (05:58)
[2020-03-28] MEDS: PANTOPRAZOLE 40 MG TABLET PO SCH (05:58)
[2020-03-28] MEDS: METOPROLOL TARTRATE 25 MG TAB PO SCH ×2 (06:41→18:06)
[2020-03-28] MEDS: ALPRAZolam 1 MG TAB PO SCH ×2 (06:41→18:06)
[2020-03-28] MEDS: MIDODRINE 5 MG TAB PO SCH ×3 (06:41→18:07)
[2020-03-28 07:38] LABS: Anisocytosis Slight; Basophils % (A) 1 %; Eosinophils # (A) 0.1 k/uL (0-0.7); Eosinophils % (A) 2 %; HCT 34.8 % (39.0-53.0); HGB 10.3 gm/dL (13.0-17.5); Hypochromasia Marked; Lymphocytes # (A) 1.4 k/uL (1.0-4.8); Lymphocytes % (A) 21 %; MCH 23.8 pg (25.0-35.0); MCHC 29.6 g/dL (31.0-37.0); MCV 80.5 fL (80.0-100.0); Mean Platelet Volume 8.9; Monocytes # (A) 0.5 k/uL (0-1.0); Monocytes % (A) 8 %; Neutrophils # (A) 4.1 k/uL (1.3-7.7); Neutrophils % (A) 65 %; Platelet Count 209 k/uL (150-450); RBC 4.32 m/uL (4.30-5.90); RDW 16.6 % (11.5-15.5); WBC 6.4 k/uL (3.8-10.6)
[2020-03-28 07:51] LABS: Calcium 8.4 mg/dL (8.4-10.2); Potassium 4.5 mmol/L (3.5-5.1)
[2020-03-28] MEDS: HEPARIN SODIUM,PORCINE 5,000 UNIT/ML 1 ML VIAL SQ SCH ×2 (08:48→20:59)
[2020-03-28] MEDS: FUROSEMIDE 10 MG/ML 4 ML VIAL IV SCH (08:48)
[2020-03-28] MEDS: HYDROcodone/APAP 5-325MG 1 EACH TAB PO PRN ×2 (08:50→20:59)
--- NOTE | 2020-03-28 10:48 | P.PN ---
Subjective Progress Note Date: 03/28/20 This is a 74-year-old gentleman who follows with Dr. Diop in the office. He has a history of hypertension, hyperlipidemia, prior liver disease, history of EtOH abuse, COPD, GERD, history of coronary artery disease with prior successful stenting of the LAD, chronic kidney disease, most recent h ospitalization was in January of this year. He presented to the hospital on this occasion with symptoms of shortness of breath, productive cough, and frequent falls. According to the patient, with even minimal exertion he states he can hardly breathe and it takes quite some time before his breathing stabilizes. Chest x-ray on presentation here showed small right pleural effusion which appears to be new as compared with prior exam. EKG on presentation here shows normal sinus rhythm with a first-degree AV block, left axis deviation and nonspecific ST-T wave changes. Blood pressure 110/70, heart rate in the 80s, afebrile. White blood cell count 5.9, hemoglobin 9.7, platelet count 157. Sodi um 137, potassium 4.8, BUN 26, creatinine 1.4, troponins 0.035, platelet 33, 0.042. Upon review of prior admissions, patient persistently has abnormality in troponin. BNP level 11,000. At the time of my examination this morning, patient has a productive cough, he is somewhat short of breath, his biggest complaint is lower back discomfort and lower abdominal discomfort. 03/27/2020 Patient was seen and examined this morning, complaining of significant lower back pain. He does state that his breathing today is improved as compared with yesterday. His weight is down. Blood pressure 105/60 with a heart rate of 90, 94% on room air. White blood cell count 6.9, hemoglobin 10.4, platelet count 185. Sodium 139, potassium 4.7, BUN 29, creatinine 1.6. 03/28/2020 Patient was seen and examined this morning, overall he is feeling significantly better, chest x-ray shows improvement. Blood pressure today 88/60, good urine output. White blood cell count 6.4, hemoglobin 10.3, platelet count 209. Sodium 138, potassium 4.5, BUN 32, creatinine 1.7. We will discontinue the IV Lasix today and change patient over to Lasix 40 mg one tablet by mouth twice a day. Objective - Vital Signs Vital signs: Vital Signs Temp 98.3 F 03/28/20 08:00 Pulse 110 H 03/28/20 08:00 Resp 18 03/28/20 08:00 BP 132/82 03/28/20 08:00 Pulse Ox 92 L 03/28/20 08:00 Intake & Output 03/27/20 03/28/20 03/28/20 18:59 06:59 18:59 Output Total 1000 1300 Balance -1000 -1300 Weight 63.6 kg Output: Urine 1000 1300 Other: Voiding Method Indwelling Catheter Indwelling Catheter Indwelling Catheter - Exam PHYSICAL EXAMINATION: GENERAL: 74-year-old gentleman in no acute distress at the time of my examination, complaining of lower back pain HEENT: Head is atraumatic, normocephalic. Pupils equal, round. Sclera anicteric. Conjunctiva are clear. Mucous membranes of the mouth are moist. Neck is supple. There is no elevated jugular venous pressure. No carotid bruit is heard. HEART EXAMINATION: Heart S1 and S2 normal CHEST EXAMINATION: Lungs reveal diminished air entry to the bases bilaterally, fine expiratory wheezing and coarse rhonchi throughout ABDOMEN: Soft, nontender. Bowel sounds are heard. No organomegaly noted. EXTREMITIES: 2+ peripheral pulses with no evidence of peripheral edema and no calf tenderness noted. NEUROLOGIC patient is awake, alert and oriented X3 . - Labs CBC & Chem 7: 03/28/20 06:32 03/28/20 06:32 Labs: Abnormal Lab Results - Last 24 Hours (Table) 03/28/20 03/28/20 Range/Units 06:32 06:32 Hgb 10.3 L (13.0-17.5) gm/dL Hct 34.8 L (39.0-53.0) % MCH 23.8 L (25.0-35.0) pg MCHC 29.6 L (31.0-37.0) g/dL RDW 16.6 H (11.5-15.5) % Chloride 97 L (98-107) mmol/L Carbon Dioxide 31 H (22-30) mmol/L BUN 32 H (9-20) mg/dL Creatinine 1.76 H (0.66-1.25) mg/dL Glucose 102 H (74-99) mg/dL Microbiology - Last 24 Hours (Table) 03/25/20 23:22 Blood Culture - Preliminary Blood No Growth after 48 hours 03/25/20 20:26 Urine Culture - Final Urine,Voided Assessment and Plan Plan: Assessment and plan #1 symptoms of progressively worsening shortness of breath, evidence of congestive heart failure, BNP level 1I,000, systolic acute on chronic #2 COPD exacerbation with possible tracheobronchitis #3 severe pulmonary hypertension #4 abnormality in troponin, not consistent with acute coronary syndrome, likely secondary to hypoxia and abnormal renal function. Patient consistently has abnormality in troponin. #5 chronic anemia #6 frequent falls with history of chronic back pain #7 coronary artery disease with prior LAD stenting #8 COPD #9 hypertension #10 hyperlipidemia #11 history of EtOH abuse #12 history of liver disease #13 nicotine dependence #14 UTI Plan We will discontinue the IV Lasix and start the patient on Lasix 40 mg one tablet by mouth twice a day. DNP note has been reviewed, I agree with a documented findings and plan of care. Patient was seen and examined.
[2020-03-28] MEDS: LOSARTAN 25 MG TAB PO SCH (12:44)
[2020-03-28] MEDS: FUROSEMIDE 40 MG TAB PO SCH (15:24)
[2020-03-28] MEDS: ATORVASTATIN 80 MG TAB PO SCH (18:06)
--- NOTE | 2020-03-28 18:34 | PN ---
PROGRESS NOTE DATE OF SERVICE: 03/28/2020 This 74-year-old gentleman who was admitted with shortness of breath, CHF, acute exacerbation, is being closely monitored at this time. Ejection fraction was found to be 20% with possible ischemic cardiomyopathy. The patient also had significant severe pulmonary hypertension. Troponin was also noted. Cardiology saw the patient and recommended p.o. Lasix. Otherwise, the patient is being closely monitored. No chest pain. No palpitations. No fever. PHYSICAL EXAMINATION: Alert and oriented x2. Pulse 105, blood pressure 92/44, respiration 18, temperature 97.7, pulse ox 96% on room air. HEENT: Conjunctivae normal. Oral mucosa moist. NECK: No jugular venous distention. No carotid bruit. No lymph node enlargement. CARDIOVASCULAR SYSTEM: S1, S2 muffled. RESPIRATORY SYSTEM: Breath sounds diminished at the bases. A few rhonchi. No crackles. ABDOMEN: Soft, non-tender. LEGS: No edema. No swelling. NERVOUS SYSTEM: No focal deficit. LABS: WBC 6.4, hemoglobin 10.3. Sodium 138, potassium 4.1. Creatinine is 1.76. Troponins are noted. ASSESSMENT: 1. Shortness of breath; possible congestive heart failure, acute exacerbation, with acute on chronic systolic dysfunction, ejection fraction 20% with possible ischemic cardiomyopathy. 2. Severe pulmonary hypertension on the previous 2D echo. 3. History of recent respiratory failure for congestive heart failure, acute exacerbation. 4. Elevated troponin at 0.035, indeterminate. Origin could be from recent non-ST- segment-elevation myocardial infarction. 5. Increased creatinine with chronic kidney disease, stage 3. 6. Hyperkalemia from renal failure. 7. Relative hypotension, cardiogenic shock. 8. Possible acute urinary tract infection, present on admission. 9. Anemia, normocytic anemia of chronic disease. 10.History of falls and gait dysfunction. 11.History of severe back pain, degenerative joint disease and possible contusion. 12.Coronary artery disease. 13.History of congestive heart failure. 14.Chronic obstructive pulmonary disease. 15.History of gastroesophageal reflux disease. 16.Hypertension. 17.Hyperlipidemia. 18.History of myocardial infarction. 19.History of degenerative joint disease. 20.History of pneumonia. 21.History of urinary tract infection with sepsis. 22.History of adenoidectomy. 23.Continued ongoing nicotine dependence. 24.History of gait dysfunction. 25.History of ETOH. 26.FULL CODE. RECOMMENDATIONS AND DISCUSSION: I recommend to continue current medications, continue with the monitoring, symptomatic treatment. Continue with p.o. diuretics and increase ambulation. Prognosis guarded. Further recommendations to follow. 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 LINDA / RENEE: [id number] /
[2020-03-29] MEDS ORDERED: MIDODRINE 5 MG TAB PO ONE
[2020-03-29] MEDS: LORATADINE 10 MG TAB PO SCH (05:16)
[2020-03-29] MEDS: MAGNESIUM OXIDE 400 MG TAB PO SCH ×2 (05:16→17:36)
[2020-03-29] MEDS: PANTOPRAZOLE 40 MG TABLET PO SCH (05:16)
[2020-03-29] MEDS: TICAGRELOR 90 MG TAB PO SCH ×2 (05:16→17:36)
[2020-03-29] MEDS: TAMSULOSIN 0.4 MG CAP.ER.24H PO SCH (05:16)
[2020-03-29] MEDS: BACLOFEN 10 MG TAB PO SCH ×2 (05:16→17:35)
[2020-03-29] MEDS: MIDODRINE 5 MG TAB PO SCH ×3 (06:24→17:36)
[2020-03-29] MEDS: FUROSEMIDE 40 MG TAB PO SCH ×2 (09:32→17:14)
[2020-03-29] MEDS: HEPARIN SODIUM,PORCINE 5,000 UNIT/ML 1 ML VIAL SQ SCH ×2 (09:32→20:21)
[2020-03-29] MEDS: ALPRAZolam 1 MG TAB PO SCH ×2 (10:13→17:35)
--- NOTE | 2020-03-29 12:08 | P.PN ---
Subjective Progress Note Date: 03/29/20 This is a 74-year-old gentleman who follows with Dr. Diop in the office. He has a history of hypertension, hyperlipidemia, prior liver disease, history of EtOH abuse, COPD, GERD, history of coronary artery disease with prior successful stenting of the LAD, chronic kidney disease, most recent h ospitalization was in January of this year. He presented to the hospital on this occasion with symptoms of shortness of breath, productive cough, and frequent falls. According to the patient, with even minimal exertion he states he can hardly breathe and it takes quite some time before his breathing stabilizes. Chest x-ray on presentation here showed small right pleural effusion which appears to be new as compared with prior exam. EKG on presentation here shows normal sinus rhythm with a first-degree AV block, left axis deviation and nonspecific ST-T wave changes. Blood pressure 110/70, heart rate in the 80s, afebrile. White blood cell count 5.9, hemoglobin 9.7, platelet count 157. Sodi um 137, potassium 4.8, BUN 26, creatinine 1.4, troponins 0.035, platelet 33, 0.042. Upon review of prior admissions, patient persistently has abnormality in troponin. BNP level 11,000. At the time of my examination this morning, patient has a productive cough, he is somewhat short of breath, his biggest complaint is lower back discomfort and lower abdominal discomfort. 03/27/2020 Patient was seen and examined this morning, complaining of significant lower back pain. He does state that his breathing today is improved as compared with yesterday. His weight is down. Blood pressure 105/60 with a heart rate of 90, 94% on room air. White blood cell count 6.9, hemoglobin 10.4, platelet count 185. Sodium 139, potassium 4.7, BUN 29, creatinine 1.6. 03/28/2020 Patient was seen and examined this morning, overall he is feeling significantly better, chest x-ray shows improvement. Blood pressure today 88/60, good urine output. White blood cell count 6.4, hemoglobin 10.3, platelet count 209. Sodium 138, potassium 4.5, BUN 32, creatinine 1.7. We will discontinue the IV Lasix today and change patient over to Lasix 40 mg one tablet by mouth twice a day. 03/29/2020 Patient seen and examined this morning, he is a little more groggy today, he received some Xanax earlier. Blood pressure running around 78-80 systolic. We will put some parameters on his beta rebecca and angiotensin rebecca. Continue by mouth Lasix. Sodium 138, potassium 4.5, BUN 32, creatinine 1.7. Objective - Vital Signs Vital signs: Vital Signs Temp 97.5 F L 03/29/20 04:00 Pulse 99 03/29/20 04:00 Resp 20 03/29/20 04:00 BP 74/43 03/29/20 05:59 Pulse Ox 94 L 03/29/20 04:00 Intake & Output 03/28/20 03/29/20 03/29/20 18:59 06:59 18:59 Intake Total 50 Output Total 450 625 Balance -450 -575 Weight 64.9 kg Intake: Intake, IV Titration 50 Amount cefTRIAXone 1 gm In 50 Sodium Chloride 0.9% 50 ml @ 100 mls/hr IVPB Q24H [facility] Rx#:[id number] Output: Urine 450 625 Other: Voiding Method Indwelling Catheter Indwelling Catheter - Exam PHYSICAL EXAMINATION: GENERAL: 74-year-old gentleman in no acute distress at the time of my examination, complaining of lower back pain HEENT: Head is atraumatic, normocephalic. Pupils equal, round. Sclera anicteric. Conjunctiva are clear. Mucous membranes of the mouth are moist. Neck is supple. There is no elevated jugular venous pressure. No carotid bruit is heard. HEART EXAMINATION: Heart S1 and S2 normal CHEST EXAMINATION: Lungs reveal diminished air entry to the bases bilaterally, fine expiratory wheezing and coarse rhonchi throughout ABDOMEN: Soft, nontender. Bowel sounds are heard. No organomegaly noted. EXTREMITIES: 2+ peripheral pulses with no evidence of peripheral edema and no calf tenderness noted. NEUROLOGIC patient is awake, alert and oriented X3 . - Labs CBC & Chem 7: 03/28/20 06:32 03/28/20 06:32 Labs: Microbiology - Last 24 Hours (Table) 03/25/20 23:22 Blood Culture - Preliminary Blood No Growth after 72 hours Assessment and Plan Plan: Assessment and plan #1 symptoms of progressively worsening shortness of breath, evidence of congestive heart failure, BNP level 1I,000, systolic acute on chronic #2 COPD exacerbation with possible tracheobronchitis #3 severe pulmonary hypertension #4 abnormality in troponin, not consistent with acute coronary syndrome, likely secondary to hypoxia and abnormal renal function. Patient consistently has abnormality in troponin. #5 chronic anemia #6 frequent falls with history of chronic back pain #7 coronary artery disease with prior LAD stenting #8 COPD #9 hypertension #10 hyperlipidemia #11 history of EtOH abuse #12 history of liver disease #13 nicotine dependence #14 UTI Plan From cardiology's perspective, we will write parameters for the patient's beta rebecca and are to be held for systolic less than 80. Patient is asymptomatic with his hypotension. Continue current dose of by mouth Lasix. Discharged once cleared by primary and pulmonary. DNP note has been reviewed, I agree with a documented findings and plan of care. Patient was seen and examined.
[2020-03-29 14:10] LABS: Anisocytosis Slight; HGB 11.1 gm/dL (13.0-17.5); Hypochromasia Marked; MCH 24.6 pg (25.0-35.0); MCHC 30.1 g/dL (31.0-37.0); Mean Platelet Volume 9.2; Platelet Count 212 k/uL (150-450); RBC 4.52 m/uL (4.30-5.90); RDW 16.2 % (11.5-15.5); WBC 4.6 k/uL (3.8-10.6)
[2020-03-29 14:24] LABS: Calcium 8.3 mg/dL (8.4-10.2); Potassium 4.6 mmol/L (3.5-5.1)
[2020-03-29 14:34] LABS: Eosinophils # (M) 0.14 k/uL (0-0.7); Lymphocytes # (M) 1.75 k/uL (1.0-4.8); Monocytes # (M) 0.32 k/uL (0-1.0); Neutrophils # (M) 2.39 k/uL (1.3-7.7); Neutrophils % (M) 52 %; Nucleated Red Blood Cells 0 /100 WBC (0-0); Poikilocytosis (M) Present; Total Cells Counted 100
[2020-03-29] MEDS: ATORVASTATIN 80 MG TAB PO SCH (17:35)
[2020-03-29] MEDS: IOPAMIDOL CONTRAST (ORAL USE) VIAL PO PRN ×2 (19:34→20:22)
[2020-03-29 21:40] LABS: Appearance,Urine Clear (Clear); Bacteria,Urine Rare /hpf; Bilirubin,Urine Negative (Negative); Blood,Urine Small (Negative); Color,Urine Light Yellow; Glucose,Urine (UA) Negative (Negative); Hyaline Casts,Urine 11 /lpf (0-2); Ketones,Urine Negative (Negative); Leukocyte Esterase,Urine Small (Negative); Mucus,Urine Rare /hpf; Nitrite,Urine Negative (Negative); Protein,Urine Negative (Negative); RBC,Urine 15 /hpf (0-5); Specific Gravity,Urine 1.009 (1.001-1.035); Urobilinogen,Urine <2.0 mg/dL (<2.0); WBC,Urine 2 /hpf (0-5)
--- NOTE | 2020-03-29 21:58 | CT ---
EXAMINATION TYPE: CT abdomen pelvis wo con DATE OF EXAM: 03/29/2020 COMPARISON: 01/27/2020 HISTORY: ABDOMINAL AND LOWER BACK PAIN CT DLP: 619.1 mGycm Automated exposure control for dose reduction was used. There is oral contrast. There is minimal subsegmental atelectasis at the lung bases. Heart is enlarged. There is no pericardi al effusion. There is no pleural effusion. Liver and spleen appear normal. Bile ducts are not dilated . There is no pancreatic mass. Stomach is intact. The gallbladder appears normal. There is no adrenal mass. There is mild right-sided hydronephrosis. There are right-sided renal corti alyx cysts that measure up to 2 cm. There is Palomares catheter in the urinary bladder. Bladder is empty. I see no evidence of ureteral calculus. There is no retroperitoneal adenopathy. Abdominal aorta is at heromatous. There is no inguinal hernia. There is some retained fecal material in the rectum. Rectum measures 6.7 cm. There is no mesenteric edema. There is no ascites or free air. There is no sign of a bowel obstr uction. Appendix is not seen. There is no sign of thickened appendix. Lumbar vertebra have normal alignment. There is no compression fracture. The bony pelvis is intact. IMPRESSION: There is some mild right side chronic hydronephrosis unchanged compared to old exam. No calculus seen . There is cardiomegaly. There is clearing of the small pleural effusions and basilar pulmonary infiltr ates compared to old exam. There is some rectal fecal impaction unchanged.
--- NOTE | 2020-03-29 22:05 | CT ---
EXAMINATION TYPE: CT lumbar spine wo con DATE OF EXAM: 03/29/2020 COMPARISON: 10/31/2019 HISTORY: ABDOMINAL AND LOWER BACK PAIN CT DLP: 619.1 mGycm Automated exposure control for dose reduction was used. Multiple axial sections were obtained from T12 to S3 vertebra without contrast. Lumbar vertebra have normal alignment. There is anterior spurring. There is no significant disc space narrowing. There is no compression fracture. Posterior elements are intact. There is mild hypertroph ic multilevel facet arthropathy. There is no lumbar paraspinal mass. There is L4-5 mild spinal stenos is due to developmentally small spinal canal and facet arthropathy. The sacroiliac joints are intact. IMPRESSION: Hypertrophic degenerative changes. L4-5 bony spinal stenosis. No fracture.
--- NOTE | 2020-03-29 22:44 | PN ---
PROGRESS NOTE DATE OF SERVICE: 03/29/2020 This 74-year-old gentleman who was admitted with shortness of breath and CHF is being closely monitored. The patient has acute on chronic systolic dysfunction. The patient is also complaining of back pain. No chest pain. No palpitations. No fever. Cardiology following the patient closely. Blood pressures are running low. The patient is feeling tired. Cardiology is recommending parameters of beta blockers. Past medical history reviewed. REVIEW OF SYSTEMS: Cardiovascular system is as mentioned earlier. RESPIRATORY: As mentioned earlier. GI: As mentioned earlier. : No dysuria. NERVOUS SYSTEM: No numbness or weakness. Current medications reviewed and include: [place] 5 mg, Lipitor, Lioresal, Rocephin 1 g, Lasix, Dilaudid, Claritin, Ativan, Cozaar, magnesium oxide, Toprol-XL, prednisone, ProAmatine, Narcan, Protonix, Flomax, doses are reviewed. PHYSICAL EXAM: Patient is alert, oriented x2. Pulse is 112. Blood pressure 83/44, respiration 18, temperature 97.4, pulse ox 95 percent on room air. HEENT: Conjunctivae normal. NECK: No JVD. CARDIOVASCULAR: S1, S2 muffled. RESPIRATIONS: Breath sounds diminished in the bases. A few scattered rhonchi and crackles. ABDOMEN: Soft, nontender. LEGS: No edema. No swelling. NERVOUS SYSTEM: No focal deficits. LABS: WBC 4.6, hemoglobin 11.1, sodium 137, potassium 4.2. Troponin 0.042. NT proBNP is 1100. ASSESSMENT: 1. Shortness of breath, possibly congestive heart failure acute exacerbation with acute on chronic systolic dysfunction, ejection fraction 20% with possible ischemic cardiomyopathy. 2. Severe pulmonary hypertension with previous 2D echo. 3. Hypotension possibly cardiogenic shock. 4. History of recent respiratory failure because of congestive heart failure acute exacerbation. 5. Elevated troponin 0.035, indeterminate origin could be from the recent non ST segment elevation myocardial infarction. 6. Increased creatinine with chronic kidney disease stage III. 7. Hyperkalemia from renal failure. 8. Possible acute urinary tract infection present on admission. 9. Anemia, normocytic with anemia of chronic disease. 10.History of falls and gait dysfunction. 11.History of severe back pain, degenerative joint disease and possible contusion. 12.Coronary artery disease. 13.History of congestive heart failure. 14.Chronic obstructive pulmonary disease. 15.History of gastroesophageal reflux disease. 16.Hypertension. 17.Hyperlipidemia. 18.History of myocardial infarction. 19.History of degenerative joint disease. 20.History of pneumonia. 21.History of urinary tract infection with sepsis. 22.History of adenoidectomy. 23.Continued ongoing nicotine dependence. 24.History of gait dysfunction. 25.History of ETOH. 26.FULL CODE. RECOMMENDATIONS AND DISCUSSION: Recommend to continue current medication, and symptomatic treatment. Beta blockers with parameters as suggested by Cardiology. Patient also had possible UTI. I would recommend continue the antibiotics. The cultures are negative so far. I would recommend repeat UA with micro to ensure clearance. I would continue with diuretics. I would also recommend a serum cortisol and TSH as well and set of repeat blood cultures. Most recent chest x-ray which was reviewed by me showed no acute parenchymal process. Once again, the prognosis guarded. I would recommend pain management for back injection. Lumbar spine x-rays have been done. I would recommend a CT scan of the abdomen, pelvis and the back to complete the workup as well. Overall prognosis remains extremely guarded because of the above mentioned multiple complex medical issues and further recommendations to follow. MMODL / IJN: [id number] / NIKIA
[2020-03-30] MEDS: TAMSULOSIN 0.4 MG CAP.ER.24H PO SCH (06:14)
[2020-03-30] MEDS: MIDODRINE 5 MG TAB PO SCH ×3 (06:14→16:40)
[2020-03-30] MEDS: BACLOFEN 10 MG TAB PO SCH ×2 (06:14→16:40)
[2020-03-30] MEDS: PANTOPRAZOLE 40 MG TABLET PO SCH (06:14)
[2020-03-30] MEDS: MAGNESIUM OXIDE 400 MG TAB PO SCH ×2 (06:14→16:40)
[2020-03-30] MEDS: LORATADINE 10 MG TAB PO SCH (06:14)
[2020-03-30] MEDS: TICAGRELOR 90 MG TAB PO SCH ×2 (06:14→16:40)
[2020-03-30] MEDS: ALPRAZolam 1 MG TAB PO SCH (06:14)
[2020-03-30 07:31] LABS: Calcium 8.8 mg/dL (8.4-10.2); Potassium 4.7 mmol/L (3.5-5.1)
[2020-03-30 07:39] LABS: Anisocytosis Slight; Basophils # (A) 0.1 k/uL (0-0.2); Basophils % (A) 1 %; Eosinophils # (A) 0.2 k/uL (0-0.7); Eosinophils % (A) 4 %; HCT 35.8 % (39.0-53.0); HGB 10.9 gm/dL (13.0-17.5); Hypochromasia Marked; Lymphocytes # (A) 1.8 k/uL (1.0-4.8); Lymphocytes % (A) 32 %; MCH 24.4 pg (25.0-35.0); MCHC 30.4 g/dL (31.0-37.0); MCV 80.4 fL (80.0-100.0); Mean Platelet Volume 8.7; Monocytes # (A) 0.4 k/uL (0-1.0); Monocytes % (A) 8 %; Neutrophils # (A) 2.8 k/uL (1.3-7.7); Neutrophils % (A) 52 %; Platelet Count 224 k/uL (150-450); Poikilocytosis Slight; RBC 4.46 m/uL (4.30-5.90); WBC 5.5 k/uL (3.8-10.6)
[2020-03-30] MEDS ORDERED: METOPROLOL SUCCINATE (ER) 25 MG TAB.ER.24H PO SCH (09:00)
[2020-03-30] MEDS: HEPARIN SODIUM,PORCINE 5,000 UNIT/ML 1 ML VIAL SQ SCH ×2 (09:39→20:09)
[2020-03-30] MEDS: FUROSEMIDE 40 MG TAB PO SCH ×2 (09:40→16:40)
[2020-03-30] MEDS: LOSARTAN 25 MG TAB PO SCH (09:40)
[2020-03-30] MEDS: POLYETHYLENE GLYCOL 3350 17 GM POWD.PACK PO SCH (09:46)
--- NOTE | 2020-03-30 12:01 | P.PN ---
Subjective Progress Note Date: 03/30/20 This is a 74-year-old gentleman who follows with Dr. Diop in the office. He has a history of hypertension, hyperlipidemia, prior liver disease, history of EtOH abuse, COPD, GERD, history of coronary artery disease with prior successful stenting of the LAD, chronic kidney disease, most recent h ospitalization was in January of this year. He presented to the hospital on this occasion with symptoms of shortness of breath, productive cough, and frequent falls. According to the patient, with even minimal exertion he states he can hardly breathe and it takes quite some time before his breathing stabilizes. Chest x-ray on presentation here showed small right pleural effusion which appears to be new as compared with prior exam. EKG on presentation here shows normal sinus rhythm with a first-degree AV block, left axis deviation and nonspecific ST-T wave changes. Blood pressure 110/70, heart rate in the 80s, afebrile. White blood cell count 5.9, hemoglobin 9.7, platelet count 157. Sodi um 137, potassium 4.8, BUN 26, creatinine 1.4, troponins 0.035, platelet 33, 0.042. Upon review of prior admissions, patient persistently has abnormality in troponin. BNP level 11,000. At the time of my examination this morning, patient has a productive cough, he is somewhat short of breath, his biggest complaint is lower back discomfort and lower abdominal discomfort. 03/27/2020 Patient was seen and examined this morning, complaining of significant lower back pain. He does state that his breathing today is improved as compared with yesterday. His weight is down. Blood pressure 105/60 with a heart rate of 90, 94% on room air. White blood cell count 6.9, hemoglobin 10.4, platelet count 185. Sodium 139, potassium 4.7, BUN 29, creatinine 1.6. 03/28/2020 Patient was seen and examined this morning, overall he is feeling significantly better, chest x-ray shows improvement. Blood pressure today 88/60, good urine output. White blood cell count 6.4, hemoglobin 10.3, platelet count 209. Sodium 138, potassium 4.5, BUN 32, creatinine 1.7. We will discontinue the IV Lasix today and change patient over to Lasix 40 mg one tablet by mouth twice a day. 03/29/2020 Patient seen and examined this morning, he is a little more groggy today, he received some Xanax earlier. Blood pressure running around 78-80 systolic. We will put some parameters on his beta rebecca and angiotensin rebecca. Continue by mouth Lasix. Sodium 138, potassium 4.5, BUN 32, creatinine 1.7. 03/30/2020 Patient was seen and examined this morning, blood pressure 95/60, 86/58, heart rate has been in the 90s. Objective - Vital Signs Vital signs: Vital Signs Temp 97.5 F L 03/30/20 08:00 Pulse 120 H 03/30/20 09:40 Resp 18 03/30/20 09:40 BP 86/57 03/30/20 08:00 Pulse Ox 95 03/30/20 08:00 Intake & Output 03/29/20 03/30/20 03/30/20 18:59 06:59 18:59 Intake Total 50 Output Total 900 1325 Balance -900 -1275 Weight 63 kg Intake: Intake, IV Titration 50 Amount cefTRIAXone 1 gm In 50 Sodium Chloride 0.9% 50 ml @ 100 mls/hr IVPB Q24H [facility] Rx#:[id number] Output: Urine 900 1325 Other: Voiding Method Indwelling Catheter Indwelling Catheter Indwelling Catheter - Exam PHYSICAL EXAMINATION: GENERAL: 74-year-old gentleman in no acute distress at the time of my examination, complaining of lower back pain HEENT: Head is atraumatic, normocephalic. Pupils equal, round. Sclera anicter ic. Conjunctiva are clear. Mucous membranes of the mouth are moist. Neck is supple. There is no elevated jugular venous pressure. No carotid bruit is heard. HEART EXAMINATION: Heart S1 and S2 normal CHEST EXAMINATION: Lungs reveal diminished air entry to the bases bilaterally, fine expiratory wheezing and coarse rhonchi throughout ABDOMEN: Soft, nontender. Bowel sounds are heard. No organomegaly noted. EXTREMITIES: 2+ peripheral pulses with no evidence of peripheral edema and no calf tenderness noted. NEUROLOGIC patient is awake, alert and oriented X3 . - Labs CBC & Chem 7: 03/30/20 06:44 03/30/20 06:44 Labs: Abnormal Lab Results - Last 24 Hours (Table) 03/29/20 03/29/20 03/29/20 Range/Units 13:50 13:50 21:21 Hgb 11.1 L (13.0-17.5) gm/dL Hct 37.0 L (39.0-53.0) % MCH 24.6 L (25.0-35.0) pg MCHC 30.1 L (31.0-37.0) g/dL RDW 16.2 H (11.5-15.5) % Sodium (137-145) mmol/L Chloride (98-107) mmol/L Carbon Dioxide (22-30) mmol/L BUN 42 H (9-20) mg/dL Creatinine 2.12 H (0.66-1.25) mg/dL Glucose 105 H (74-99) mg/dL Calcium 8.3 L (8.4-10.2) mg/dL Urine Blood Small H (Negative) Ur Leukocyte Esterase Small H (Negative) Urine RBC 15 H (0-5) /hpf Urine Bacteria Rare H (None) /hpf Hyaline Casts 11 H (0-2) /lpf Urine Mucus Rare H (None) /hpf 03/30/20 03/30/20 Range/Units 06:44 06:44 Hgb 10.9 L (13.0-17.5) gm/dL Hct 35.8 L (39.0-53.0) % MCH 24.4 L (25.0-35.0) pg MCHC 30.4 L (31.0-37.0) g/dL RDW 16.0 H (11.5-15.5) % Sodium 136 L (137-145) mmol/L Chloride 95 L (98-107) mmol/L Carbon Dioxide 32 H (22-30) mmol/L BUN 38 H (9-20) mg/dL Creatinine 1.99 H (0.66-1.25) mg/dL Glucose (74-99) mg/dL Calcium (8.4-10.2) mg/dL Urine Blood (Negative) Ur Leukocyte Esterase (Negative) Urine RBC (0-5) /hpf Urine Bacteria (None) /hpf Hyaline Casts (0-2) /lpf Urine Mucus (None) /hpf Microbiology - Last 24 Hours (Table) 03/29/20 21:21 Urine Culture - Preliminary Urine,Catheterized 03/25/20 23:22 Blood Culture - Preliminary Blood No Growth after 96 hours Assessment and Plan Plan: Assessment and plan #1 symptoms of progressively worsening shortness of breath, evidence of congest cady heart failure, BNP level 1I,000, systolic acute on chronic #2 COPD exacerbation with possible tracheobronchitis #3 severe pulmonary hypertension #4 abnormality in troponin, not consistent with acute coronary syndrome, likely secondary to hypoxia and abnormal renal function. Patient consistently has abnormality in troponin. #5 chronic anemia #6 frequent falls with history of chronic back pain #7 coronary artery disease with prior LAD stenting #8 COPD #9 hypertension #10 hyperlipidemia #11 history of EtOH abuse #12 history of liver disease #13 nicotine dependence #14 UTI Plan From cardiology's perspective, we will increase the dose of beta rebecca with parameters to hold for systolic less than 90. Continue the rest of the patient's medications. DNP note has been reviewed, I agree with a documented findings and plan of care. Patient was seen and examined.
--- NOTE | 2020-03-30 15:57 | PN ---
PROGRESS NOTE DATE OF SERVICE: 03/30/2020 This 74-year-old gentleman, admitted with shortness of breath and CHF acute exacerbation. Patient also had relative hypotension with . Patient also had back pain, but however the CT scan of the lumbar spine and abdomen did not show any acute abnormality. Patient closely monitored. Multiple consultants are following the patient closely. Past medical history reviewed. REVIEW OF SYSTEMS: Cardiovascular system: No angina or palpitations. Respiratory: As mentioned earlier. GI: As mentioned earlier. no dysuria. Nervous system: No numbness or weakness. CURRENT MEDICATIONS: Reviewed and include: 1. [place] 5 mg. 2. Xanax 0.1 mg b.i.d. 3. Lipitor 80 mg q.h.s. 4. Lioresal 10 mg b.i.d. 5. Rocephin 1 g. 6. Lasix. 7. Heparin. 8. Dilaudid. 9. Claritin. 10.Ativan. 11.Cozaar. 12.Magnesium oxide. 13.Toprol. 14.ProAmatine. 15.Narcan. 16.Protonix. 17.MiraLAX. 18.Flomax. 19.Brilinta. 20.Doses reviewed. PHYSICAL EXAM: The patient is alert, oriented x3. The pulse is 112. Blood pressure is 87/63, respiration 18, temperature 97.6, pulse ox 94% on room air. HEENT: Conjunctivae normal. NECK: No JVD. CARDIOVASCULAR: S1, S2 muffled. Respiration: Breath sounds diminished in the bases. A few scattered rhonchi. No crackles. ABDOMEN: Soft, nontender. LEGS are no edema. No swelling. NERVOUS SYSTEM: No focal deficits. BACK: Some tenderness present. LABS: WBC 5.2, hemoglobin 10.9, sodium 130, potassium 4.1, creatinine is 1.9. ASSESSMENT: 1. Shortness of breath, possibly congestive heart failure acute exacerbation with acute on chronic systolic dysfunction, EF 20-25% with possible ischemic cardiomyopathy. 2. Cardiogenic shock and relative hypotension. 3. History of severe pulmonary hypertension with previous 2D echo. 4. Hypertension. 5. History of recent respiratory failure because of congestive heart failure acute exacerbation. 6. Elevated troponin 0.035, indeterminate origin could be from the recent non-ST- segment-elevation myocardial infarction. 7. Increased creatinine with chronic kidney stage III. 8. Hyperkalemia from renal failure. 9. Possible acute urinary tract infection present on admission. 10.Anemia, normocytic anemia of chronic disease. 11.History of falls and gait dysfunction. 12.Severe back pain, degenerative joint disease and possible contusion. 13.History of coronary artery disease. 14.History of congestive heart failure. 15.History of chronic obstructive pulmonary disease. 16.History of gastroesophageal reflux disease. 17.Hypertension. 18.Hyperlipidemia. 19.History of myocardial infarction. 20.History of degenerative joint disease. 21.History of pneumonia. 22.History of urinary tract infection with sepsis. 23.History of adenoidectomy. 24.Continued ongoing nicotine dependence. 25.Gait dysfunction. 26.History of ETOH. 27.FULL CODE. RECOMMENDATIONS AND DISCUSSION: Recommend to continue current treatment. Continue the pain management. Otherwise, I would recommend continue with medications. Cautious adjustment of the medications. Prognosis guarded because of multiple complex medical issues. Further recommendations to follow. MMGAVINL / JUAQUINN: [id number] / MTDD
[2020-03-30] MEDS: ATORVASTATIN 80 MG TAB PO SCH (16:40)
[2020-03-30] MEDS: ALPRAZolam 0.5 MG TAB PO SCH (16:41)
[2020-03-31] MEDS: MIDODRINE 5 MG TAB PO SCH ×3 (06:18→15:52)
[2020-03-31] MEDS: PANTOPRAZOLE 40 MG TABLET PO SCH (06:18)
[2020-03-31] MEDS: TICAGRELOR 90 MG TAB PO SCH ×2 (06:18→15:52)
[2020-03-31] MEDS: LORATADINE 10 MG TAB PO SCH (06:18)
[2020-03-31] MEDS: BACLOFEN 10 MG TAB PO SCH ×2 (06:19→15:52)
[2020-03-31] MEDS: MAGNESIUM OXIDE 400 MG TAB PO SCH ×2 (06:19→15:52)
[2020-03-31] MEDS: ALPRAZolam 0.5 MG TAB PO SCH ×2 (06:19→15:52)
[2020-03-31] MEDS: TAMSULOSIN 0.4 MG CAP.ER.24H PO SCH (06:19)
[2020-03-31 06:46] LABS: Calcium 9.1 mg/dL (8.4-10.2); Magnesium 1.5 mg/dL (1.6-2.3); Potassium 4.6 mmol/L (3.5-5.1)
[2020-03-31 06:55] LABS: Basophils % (A) 1 %; Eosinophils # (A) 0.2 k/uL (0-0.7); Eosinophils % (A) 3 %; HGB 10.7 gm/dL (13.0-17.5); Hypochromasia Marked; Lymphocytes # (A) 1.7 k/uL (1.0-4.8); Lymphocytes % (A) 28 %; MCH 24.5 pg (25.0-35.0); MCHC 30.5 g/dL (31.0-37.0); MCV 80.2 fL (80.0-100.0); Mean Platelet Volume 7.8; Monocytes # (A) 0.4 k/uL (0-1.0); Monocytes % (A) 6 %; Neutrophils # (A) 3.6 k/uL (1.3-7.7); Neutrophils % (A) 59 %; Platelet Count 209 k/uL (150-450); RBC 4.36 m/uL (4.30-5.90); RDW 15.9 % (11.5-15.5); WBC 6.1 k/uL (3.8-10.6)
[2020-03-31] MEDS: MAGNESIUM SULFATE-D5W PMX 1 GM in DEXTROSE/WATER 1 100ML.BAG IVPB SCH ×2 (08:32→10:02)
[2020-03-31] MEDS: HEPARIN SODIUM,PORCINE 5,000 UNIT/ML 1 ML VIAL SQ SCH ×2 (08:33→20:47)
[2020-03-31] MEDS: METOPROLOL SUCCINATE (ER) 25 MG TAB.ER.24H PO SCH (08:33)
[2020-03-31] MEDS: POLYETHYLENE GLYCOL 3350 17 GM POWD.PACK PO SCH (08:33)
[2020-03-31] MEDS: FUROSEMIDE 40 MG TAB PO SCH (08:33)
--- NOTE | 2020-03-31 10:48 | P.PN ---
Subjective Progress Note Date: 03/31/20 This is a 74-year-old gentleman who follows with Dr. Diop in the office. He has a history of hypertension, hyperlipidemia, prior liver disease, history of EtOH abuse, COPD, GERD, history of coronary artery disease with prior successful stenting of the LAD, chronic kidney disease, most recent h ospitalization was in January of this year. He presented to the hospital on this occasion with symptoms of shortness of breath, productive cough, and frequent falls. According to the patient, with even minimal exertion he states he can hardly breathe and it takes quite some time before his breathing stabilizes. Chest x-ray on presentation here showed small right pleural effusion which appears to be new as compared with prior exam. EKG on presentation here shows normal sinus rhythm with a first-degree AV block, left axis deviation and nonspecific ST-T wave changes. Blood pressure 110/70, heart rate in the 80s, afebrile. White blood cell count 5.9, hemoglobin 9.7, platelet count 157. [place] um 137, potassium 4.8, BUN 26, creatinine 1.4, troponins 0.035, platelet 33, 0.042. Upon review of prior admissions, patient persistently has abnormality in troponin. BNP level 11,000. At the time of my examination this morning, patient has a productive cough, he is somewhat short of breath, his biggest complaint is lower back discomfort and lower abdominal discomfort. 03/27/2020 Patient was seen and examined this morning, complaining of significant lower back pain. He does state that his breathing today is improved as compared with yesterday. His weight is down. Blood pressure 105/60 with a heart rate of 90, 94% on room air. White blood cell count 6.9, hemoglobin 10.4, platelet count 185. Sodium 139, potassium 4.7, BUN 29, creatinine 1.6. 03/28/2020 Patient was seen and examined this morning, overall he is feeling significantly better, chest x-ray shows improvement. Blood pressure today 88/60, good urine output. White blood cell count 6.4, hemoglobin 10.3, platelet count 209. Sodium 138, potassium 4.5, BUN 32, creatinine 1.7. We will discontinue the IV Lasix today and change patient over to Lasix 40 mg one tablet by mouth twice a day. 03/29/2020 Patient seen and examined this morning, he is a little more groggy today, he received some Xanax earlier. Blood pressure running around 78-80 systolic. We will put some parameters on his beta rebecca and angiotensin rebecca. Continue by mouth Lasix. Sodium 138, potassium 4.5, BUN 32, creatinine 1.7. 03/30/2020 Patient was seen and examined this morning, blood pressure 95/60, 86/58, heart rate has been in the 90s. 03/31/2020 Patient seen and examined this morning, continues to be in atrial fibrillation this morning, heart rate 110, blood pressure remains on the low side and patient continues to be quite sleepy and groggy. We will discontinue the losartan because of the hypotension, and worsening renal function. Hold his Lasix for 24 hours and resume it from tomorrow at 40 mg daily. Check his lytes BUN and creatinine in the morning. Blood pressure 82/40, 94% on room air. Objective - Vital Signs Vital signs: Vital Signs Temp 98.4 F 03/31/20 08:15 Pulse 116 H 03/31/20 10:07 Resp 18 03/31/20 08:15 BP 72/50 03/31/20 10:07 Pulse Ox 94 L 03/31/20 08:15 Intake & Output 03/30/20 03/31/20 03/31/20 18:59 06:59 18:59 Intake Total 50 240 Output Total 400 2725 Balance -400 -2675 240 Weight 63.7 kg Intake: Intake, IV Titration 50 Amount cefTRIAXone 1 gm In 50 Sodium Chloride 0.9% 50 ml @ 100 mls/hr IVPB Q24H [facility] Rx#:[id number] Oral 240 Output: Urine 400 2275 Stool 450 Other: Voiding Method Indwelling Catheter Indwelling Catheter # Bowel Movements 1 - Exam PHYSICAL EXAMINATION: GENERAL: 74-year-old gentleman in no acute distress at the time of my examination, complaining of lower back pain HEENT: Head is atraumatic, normocephalic. Pupils equal, round. Sclera anicteric. Conjunctiva are clear. Mucous membranes of the mouth are moist. Neck is supple. There is no elevated jugular venous pressure. No carotid bruit is heard. HEART EXAMINATION: Heart S1 and S2 normal CHEST EXAMINATION: Lungs reveal diminished air entry to the bases bilaterally, fine expiratory wheezing and coarse rhonchi throughout ABDOMEN: Soft, nontender. Bowel sounds are heard. No organomegaly noted. EXTREMITIES: 2+ peripheral pulses with no evidence of peripheral edema and no calf tenderness noted. NEUROLOGIC patient is awake, sleepy, oriented X3 . - Labs CBC & Chem 7: 03/31/20 05:53 03/31/20 05:53 Labs: Abnormal Lab Results - Last 24 Hours (Table) 03/31/20 03/31/20 Range/Units 05:53 05:53 Hgb 10.7 L (13.0-17.5) gm/dL Hct 35.0 L (39.0-53.0) % MCH 24.5 L (25.0-35.0) pg MCHC 30.5 L (31.0-37.0) g/dL RDW 15.9 H (11.5-15.5) % Sodium 134 L (137-145) mmol/L Chloride 93 L (98-107) mmol/L BUN 43 H (9-20) mg/dL Creatinine 2.40 H (0.66-1.25) mg/dL Glucose 112 H (74-99) mg/dL Magnesium 1.5 L (1.6-2.3) mg/dL Microbiology - Last 24 Hours (Table) 03/25/20 23:22 Blood Culture - Preliminary Blood No Growth after 120 hours 03/29/20 18:51 Blood Culture - Preliminary Blood No Growth after 24 hours 03/29/20 21:21 Urine Culture - Preliminary Urine,Catheterized Assessment and Plan Plan: Assessment and plan #1 symptoms of progressively worsening shortness of breath, evidence of congestive heart failure, BNP level 1I,000, systolic acute on chronic #2 COPD exacerbation with possible tracheobronchitis #3 severe pulmonary hypertension #4 abnormality in troponin, not consistent with acute coronary syndrome, likely secondary to hypoxia and abnormal renal function. Patient consistently has abnormality in troponin. #5 chronic anemia #6 frequent falls with history of chronic back pain #7 coronary artery disease with prior LAD stenting #8 COPD #9 hypertension #10 hyperlipidemia #11 history of EtOH abuse #12 history of liver disease #13 nicotine dependence #14 UTI #15 atrial fibrillation, paroxysmal, patient has not been on anticoagulation in the past because of EtOH abuse Plan From cardiology's perspective, we will discontinue the losartan, because of the increased potassium, creatinine, and hypotension. We will also hold the Lasix today, and from tomorrow resume at 40 daily. Check lytes BUN and creatinine in the morning. DNP note has been reviewed, I agree with a documented findings and plan of care. Patient was seen and examined.
[2020-03-31] MEDS: HYDROcodone/APAP 5-325MG 1 EACH TAB PO PRN (12:26)
--- NOTE | 2020-03-31 13:07 | P.CONS ---
History of Present Illness - Reason for Consult Consult date: 03/31/20 - Chief Complaint Low back pain - History of Present Illness This is a 74-year-old gentleman with history of chronic lower back pain. The patient has significant coronary disease and low ejection fraction with hypotension. The patient used to get steroid injection on his back which gave him temporary relief of pain previously. However he is taking Brilinta and this point which is a contraindication for any injections on the spine unless we can hold it for 5-7 days. The patient denies any radiation of his pain to the lower extremities and he denies any paresthesia in the lower extremities. Past Medical History Past Medical History: Coronary Artery Disease (CAD), Chest Pain / Angina, Heart Failure, COPD, GERD/Reflux, Hearing Disorder / Deafness, Hyperlipidemia, Hypertension, Liver Disease, Myocardial Infarction (CO), Osteoarthritis (OA), Pneumonia, Renal Disease Additional Past Medical History / Comment(s): Ischemic cardiomyopathy, chronic back pain, DDD, osteoporosis, UTI with sepsis in 2016, pt self caths prn, CKD stage III, bacturia, cardiac arrhythmia, falls, CADDO bilaterally Last Myocardial Infarction Date:: 2019 History of Any Multi-Drug Resistant Organisms: None Reported Past Surgical History: Adenoidectomy, Heart Catheterization, Heart Catheterization With Stent, Hernia Repair, Tonsillectomy Additional Past Surgical History / Comment(s): L inguinal hernia repair, colonoscopies, bilateral cataract removal/lens implants, vasectomy, teeth extractions. Past Anesthesia/Blood Transfusion Reactions: No Reported Reaction Date of Last Stent Placement:: 2015 Smoking Status: Current every day smoker - Past Family History Mother Family Medical History: Myocardial Infarction (CO) Additional Family Medical History / Comment(s): Mother had a CO in her 80s and . Brother(s) Family Medical History: CVA/TIA Sister(s) Family Medical History: CVA/TIA Father Family Medical History: No Reported History Additional Family Medical History / Comment(s): Father when pt was young from a drowning. Medications and Allergies Home Medications Medication Instructions Recorded Confirmed Type ALPRAZolam 1 mg PO BID@0530,1730 07/19/16 03/25/20 History Omeprazole [PriLOSEC] 20 mg PO BID@0530,1730 07/19/16 03/25/20 History Baclofen [Lioresal] 10 mg PO BID@0530,1730 01/31/17 03/25/20 History Atorvastatin Calcium [Lipitor] 80 mg PO HS@172910/30/19 03/25/20 History Cetirizine HCl [Zyrtec] 10 mg PO DAILY@52910/30/19 03/25/20 History Metoprolol Tartrate [Lopressor] 25 mg PO BID@0530,172910/30/19 03/25/20 History Ticagrelor [Brilinta] 90 mg PO BID@0530,172910/30/19 03/25/20 History Tamsulosin [Flomax] 0.4 mg PO DAILY@52901/27/20 03/25/20 History Furosemide [Lasix] 40 mg PO DAILY@52903/25/20 03/25/20 History Loratadine 10 mg PO DAILY@52903/25/20 03/25/20 History Losartan [Cozaar] 25 mg PO DAILY@52903/25/20 03/25/20 History Magnesium Oxide [Mag-Ox] 400 mg PO BID@529,172903/25/20 03/25/20 History Midodrine [ProAmatine] 5 mg PO TID 03/25/20 03/25/20 History Penicillin V Potassium [Pen Vee K] 500 mg PO Q6H 03/25/20 03/25/20 History Spironolactone 25 mg PO DAILY@52903/25/20 03/25/20 History Valsartan 40 mg PO DAILY@52903/25/20 03/25/20 History Allergies Allergy/AdvReac Type Severity Reaction Status Date / Time No Known Allergies Allergy Verified 03/25/20 17:03 Physical Exam Vitals: Vital Signs Temp Pulse Resp BP BP Pulse Ox 03/31/20 11:35 106 H 16 89/55 96 03/31/20 10:07 116 H 66/32 72/50 03/31/20 08:15 98.4 F 122 H 18 82/45 94 L 03/31/20 04:00 97.6 F 115 H 18 90/59 94 L 03/31/20 03:16 117 H 18 03/30/20 23:19 117 H 18 03/30/20 23:10 97.8 F 117 H 18 83/40 95 03/30/20 20:00 97.5 F L 115 H 18 72/49 62/39 95 03/30/20 16:00 112 H 18 03/30/20 15:15 97.6 F 112 H 18 87/63 95 Intake and Output 03/30/20 03/31/20 03/31/20 22:59 06:59 14:59 Intake Total 50 240 Output Total 450 2275 Balance -450 -2225 240 Intake: Intake, IV Titration 50 Amount cefTRIAXone 1 gm In 50 Sodium Chloride 0.9% 50 ml @ 100 mls/hr IVPB Q24H [facility] Rx#:[id number] Oral 240 Output: Urine 2275 Stool 450 Other: Voiding Method Indwelling Catheter Indwelling Catheter # Bowel Movements 1 1 Weight 63.7 kg - Constitutional General appearance: average body habitus - Neurologic Normal muscle strength in the lower extremities bilaterally. Mild tenderness in the lumbar paravertebral musculature bilaterally. Neurologic: CNII-XII intact - Psychiatric The patient was seen in his room on the bedside chair eating his lunch with no distress. Psychiatric: A&O x's 3, appropriate affect, intact judgment & insight Results CBC & Chem 7: 03/31/20 05:53 03/31/20 05:53 Labs: Abnormal Lab Results - Last 24 Hours (Table) 03/31/20 03/31/20 Range/Units 05:53 05:53 Hgb 10.7 L (13.0-17.5) gm/dL Hct 35.0 L (39.0-53.0) % MCH 24.5 L (25.0-35.0) pg MCHC 30.5 L (31.0-37.0) g/dL RDW 15.9 H (11.5-15.5) % Sodium 134 L (137-145) mmol/L Chloride 93 L (98-107) mmol/L BUN 43 H (9-20) mg/dL Creatinine 2.40 H (0.66-1.25) mg/dL Glucose 112 H (74-99) mg/dL Magnesium 1.5 L (1.6-2.3) mg/dL Microbiology - Last 24 Hours (Table) 03/29/20 21:21 Urine Culture - Final Urine,Catheterized 03/25/20 23:22 Blood Culture - Preliminary Blood No Growth after 120 hours 03/29/20 18:51 Blood Culture - Preliminary Blood No Growth after 24 hours Assessment and Plan Plan: This 74-year-old gentleman with significant cardiac history, low ejection fraction, episodes of hypotension and chronic lower back pain mostly axial with no radiation to the lower extremities. The patient had a computed tomography s can of the lumbar spine which showed degenerative disc disease and mild stenosis at the L4 5 level. Because of the patient's treatment with Brilinta I will we cannot do Any Injections on the Lumbar Spine at This Point. I Recommend Conservative Treatment of His Pain with Oral [place] Starting with 5 Mg and Increasing to 7.5 Mg If Needed and If It Does Not Affect His Blood Pressure Significantly. I thank you for the consultation
[2020-03-31] MEDS: ATORVASTATIN 80 MG TAB PO SCH (15:52)
--- NOTE | 2020-03-31 20:54 | PN ---
PROGRESS NOTE DATE OF SERVICE: 03/31/2020 This 74-year-old gentleman admitted with shortness of breath and CHF, acute exacerbation, also had significant severe pain. CT scan showed possible lumbar DJD. The patient was seen by the pain specialist. Patient also had relative hypotension. Pain Management deferred injection because of the patient's Brilinta and conservative line of management. No chest pain. No palpitations. Past medical history reviewed. REVIEW OF SYSTEMS: CARDIOVASCULAR SYSTEM: As mentioned earlier. RESPIRATORY SYSTEM: As mentioned earlier. GI: No nausea, vomiting. : No dysuria or retention. NERVOUS SYSTEM: No numbness, weakness. CURRENT MEDICATIONS: Reviewed. They include: 1. [place] 7.5 q.6 p.r.n. 3. Lipitor. 4. Lioresal. 5. Rocephin 1 gram. 6. Heparin. 7. Dilaudid. 8. Claritin. 9. Ativan. 10.Magnesium oxide. 11.Toprol. 12.ProAmatine. 13.Narcan. 14.Protonix. 15.MiraLAX. 16.Flomax. 17.Brilinta. PHYSICAL EXAMINATION: Patient is alert, oriented x3. Pulse is 83. Blood pressure 81/52, respiration 18, temperature is 98 degrees, pulse ox 98% on room air. HEENT: Conjunctivae normal. NECK: No jugular venous distention. CARDIOVASCULAR SYSTEM: S1, S2 muffled. RESPIRATORY SYSTEM: Breath sounds diminished at the bases. A few scattered rhonchi and crackles. ABDOMEN: Soft, non-tender. LEGS: No edema. No swelling. NERVOUS SYSTEM: No focal deficit. LABS: WBC 6.1, hemoglobin 10.7, sodium 134, creatinine is 2.4. ASSESSMENT: 1. Shortness of breath, possibly congestive heart failure, acute exacerbation, with acute on chronic systolic dysfunction, ejection fraction 20% to 25%, with possible ischemic cardiomyopathy. 2. Cardiogenic shock and relative hypotension. 3. History of severe pulmonary hypertension with previous 2D echo. 4. Hypertension. 5. History of recent respiratory failure because of congestive heart failure, acute exacerbation. 6. Elevated troponin 0.035, indeterminate origin. Could be from the recent non-ST- segment-elevation myocardial infarction. 7. Increased creatinine with chronic kidney disease, stage 3. 8. Hyperkalemia from renal failure. 9. Possible acute urinary tract infection, present on admission. 10.Anemia, normocytic anemia of chronic disease. 11.History of falls and gait dysfunction. 12.History of severe back pain, degenerative joint disease and possible contusion. 13.History of coronary artery disease. 14.History of congestive heart failure. 15.History of chronic obstructive pulmonary disease. 16.History of gastroesophageal reflux disease. 17.Hypertension. 18.Hyperlipidemia. 19.History of myocardial infarction. 20.History of degenerative joint disease. 21.History of pneumonia. 22.History of urinary tract infection with sepsis. 23.History of adenoidectomy. 24.History of continued ongoing nicotine dependence. 25.Gait dysfunction. 26.History of ETOH. 27.FULL CODE. RECOMMENDATIONS AND DISCUSSION: I recommend to continue current medications, continue with the monitoring, symptomatic treatment. Otherwise at this time I recommend monitoring creatinine closely. Avoid nephrotoxic medications. Closely monitor. I would also recommend nephrology consultation. Pain management service notes are appreciated. Patient is on diet at this time. Continue to monitor. Further recommendations to follow. MMODL / IJN: [id number] / NIKIA
[2020-04-01] MEDS: LORATADINE 10 MG TAB PO SCH (05:01)
[2020-04-01] MEDS: MIDODRINE 5 MG TAB PO SCH ×4 (05:01→16:38)
[2020-04-01] MEDS: TAMSULOSIN 0.4 MG CAP.ER.24H PO SCH (05:01)
[2020-04-01] MEDS: ALPRAZolam 0.5 MG TAB PO SCH ×2 (05:01→16:38)
[2020-04-01] MEDS: BACLOFEN 10 MG TAB PO SCH ×2 (05:01→16:37)
[2020-04-01] MEDS: MAGNESIUM OXIDE 400 MG TAB PO SCH ×2 (05:01→16:38)
[2020-04-01] MEDS: PANTOPRAZOLE 40 MG TABLET PO SCH (05:01)
[2020-04-01] MEDS: TICAGRELOR 90 MG TAB PO SCH ×2 (05:01→16:38)
[2020-04-01] MEDS: HYDROcodone/APAP 7.5-325MG 1 EACH TAB PO PRN ×2 (05:05→19:23)
[2020-04-01] MEDS: LOSARTAN 25 MG TAB PO SCH (07:42)
[2020-04-01] MEDS: HEPARIN SODIUM,PORCINE 5,000 UNIT/ML 1 ML VIAL SQ SCH ×2 (08:08→19:23)
[2020-04-01] MEDS: METOPROLOL SUCCINATE (ER) 25 MG TAB.ER.24H PO SCH (08:08)
[2020-04-01] MEDS: POLYETHYLENE GLYCOL 3350 17 GM POWD.PACK PO SCH (08:08)
[2020-04-01 09:17] LABS: Calcium 9.3 mg/dL (8.4-10.2); Potassium 5.1 mmol/L (3.5-5.1)
[2020-04-01 09:30] LABS: Basophils % (A) 1 %; Eosinophils # (A) 0.2 k/uL (0-0.7); Eosinophils % (A) 4 %; HCT 37.2 % (39.0-53.0); HGB 11.3 gm/dL (13.0-17.5); Hypochromasia Marked; Lymphocytes # (A) 1.7 k/uL (1.0-4.8); Lymphocytes % (A) 34 %; MCH 24.5 pg (25.0-35.0); MCHC 30.3 g/dL (31.0-37.0); Monocytes # (A) 0.4 k/uL (0-1.0); Monocytes % (A) 8 %; Neutrophils # (A) 2.4 k/uL (1.3-7.7); Neutrophils % (A) 50 %; Platelet Count 215 k/uL (150-450); RBC 4.59 m/uL (4.30-5.90); RDW 15.9 % (11.5-15.5); WBC 4.8 k/uL (3.8-10.6)
--- NOTE | 2020-04-01 10:47 | P.PN ---
Subjective Progress Note Date: 04/01/20 This is a 74-year-old gentleman who follows with Dr. Diop in the office. He has a history of hypertension, hyperlipidemia, prior liver disease, history of EtOH abuse, COPD, GERD, history of coronary artery disease with prior successful stenting of the LAD, chronic kidney disease, most recent h ospitalization was in January of this year. He presented to the hospital on this occasion with symptoms of shortness of breath, productive cough, and frequent falls. According to the patient, with even minimal exertion he states he can hardly breathe and it takes quite some time before his breathing stabilizes. Chest x-ray on presentation here showed small right pleural effusion which appears to be new as compared with prior exam. EKG on presentation here shows normal sinus rhythm with a first-degree AV block, left axis deviation and nonspecific ST-T wave changes. Blood pressure 110/70, heart rate in the 80s, afebrile. White blood cell count 5.9, hemoglobin 9.7, platelet count 157. [place]odi um 137, potassium 4.8, BUN 26, creatinine 1.4, troponins 0.035, platelet 33, 0.042. Upon review of prior admissions, patient persistently has abnormality in troponin. BNP level 11,000. At the time of my examination this morning, patient has a productive cough, he is somewhat short of breath, his biggest complaint is lower back discomfort and lower abdominal discomfort. 03/27/2020 Patient was seen and examined this morning, complaining of significant lower back pain. He does state that his breathing today is improved as compared with yesterday. His weight is down. Blood pressure 105/60 with a heart rate of 90, 94% on room air. White blood cell count 6.9, hemoglobin 10.4, platelet count 185. Sodium 139, potassium 4.7, BUN 29, creatinine 1.6. 03/28/2020 Patient was seen and examined this morning, overall he is feeling significantly better, chest x-ray shows improvement. Blood pressure today 88/60, good urine output. White blood cell count 6.4, hemoglobin 10.3, platelet count 209. Sodium 138, potassium 4.5, BUN 32, creatinine 1.7. We will discontinue the IV Lasix today and change patient over to Lasix 40 mg one tablet by mouth twice a day. 03/29/2020 Patient seen and examined this morning, he is a little more groggy today, he received some Xanax earlier. Blood pressure running around 78-80 systolic. We will put some parameters on his beta rebecca and angiotensin rebecca. Continue by mouth Lasix. Sodium 138, potassium 4.5, BUN 32, creatinine 1.7. 03/30/2020 Patient was seen and examined this morning, blood pressure 95/60, 86/58, heart rate has been in the 90s. 03/31/2020 Patient seen and examined this morning, continues to be in atrial fibrillation this morning, heart rate 110, blood pressure remains on the low side and patient continues to be quite sleepy and groggy. We will discontinue the losartan because of the hypotension, and worsening renal function. Hold his Lasix for 24 hours and resume it from tomorrow at 40 mg daily. Check his lytes BUN and creatinine in the morning. Blood pressure 82/40, 94% on room air. 04/01/20 Patient seen and examined this morning, denies any chest discomfort and breathing overall is stable. His main complaint is back pain. Let pressure this morning 98/60 with a heart rate of 108, 97% on room air. White blood cell count 4.8, hemoglobin 11.3, platelet count 2:15. Sodium 135, potassium 5.1, BUN 48, creatinine 2.1. Objective - Vital Signs Vital signs: Vital Signs Temp 97.6 F 04/01/20 08:00 Pulse 110 H 04/01/20 08:00 Resp 20 04/01/20 08:00 BP 97/67 04/01/20 08:00 Pulse Ox 97 04/01/20 08:00 Intake & Output 03/31/20 04/01/20 04/01/20 18:59 06:59 18:59 Intake Total 670 240 Output Total 600 1200 600 Balance 70 -1200 -360 Weight 59 kg Intake: Intake, IV Titration 200 Amount Magnesium Sulfate-D5w Pmx 200 1 gm In Dextrose/Water 1 100ml.bag @ 100 mls/hr IVPB Q1H [facility] Rx#: [id number] Oral 470 240 Output: Urine 600 1200 600 Other: Voiding Method Indwelling Catheter Indwelling Catheter Indwelling Catheter # Voids 1 - Exam PHYSICAL EXAMINATION: GENERAL: 74-year-old gentleman in no acute distress at the time of my examination, complaining of lower back pain HEENT: Head is atraumatic, normocephalic. Pupils equal, round. Sclera anicteric. Conjunctiva are clear. Mucous membranes of the mouth are moist. Neck is supple. There is no elevated jugular venous pressure. No carotid bruit is heard. HEART EXAMINATION: Heart S1 and S2 normal CHEST EXAMINATION: Lungs reveal diminished air entry to the bases bilaterally, fine expiratory wheezing and coarse rhonchi throughout ABDOMEN: Soft, nontender. Bowel sounds are heard. No organomegaly noted. EXTREMITIES: 2+ peripheral pulses with no evidence of peripheral edema and no calf tenderness noted. NEUROLOGIC patient is awake, sleepy, oriented X3 . - Labs CBC & Chem 7: 04/01/20 08:14 04/01/20 08:14 Labs: Abnormal Lab Results - Last 24 Hours (Table) 04/01/20 04/01/20 Range/Units 08:14 08:14 Hgb 11.3 L (13.0-17.5) gm/dL Hct 37.2 L (39.0-53.0) % MCH 24.5 L (25.0-35.0) pg MCHC 30.3 L (31.0-37.0) g/dL RDW 15.9 H (11.5-15.5) % Sodium 135 L (137-145) mmol/L Chloride 95 L (98-107) mmol/L BUN 48 H (9-20) mg/dL Creatinine 2.15 H (0.66-1.25) mg/dL Glucose 123 H (74-99) mg/dL Microbiology - Last 24 Hours (Table) 03/25/20 23:22 Blood Culture - Final Blood No Growth after 144 hours 03/29/20 18:51 Blood Culture - Preliminary Blood No Growth after 48 hours 03/29/20 21:21 Urine Culture - Final Urine,Catheterized Assessment and Plan Plan: Assessment and plan #1 symptoms of progressively worsening shortness of breath, evidence of congestive heart failure, BNP level 1I,000, systolic acute on chronic #2 COPD exacerbation with possible tracheobronchitis #3 severe pulmonary hypertension #4 abnormality in troponin, not consistent with acute coronary syndrome, likely secondary to hypoxia and abnormal renal function. Patient consistently has abnormality in troponin. #5 chronic anemia #6 frequent falls with history of chronic back pain #7 coronary artery disease with prior LAD stenting #8 COPD #9 hypertension #10 hyperlipidemia #11 history of EtOH abuse #12 history of liver disease #13 nicotine dependence #14 UTI #15 atrial fibrillation, paroxysmal, patient has not been on anticoagulation in the past because of EtOH abuse Plan From cardiology's perspective, we will continue to hold the losartan and Lasix for today. Resume Lasix and 24 hours. DNP note has been reviewed, I agree with a documented findings and plan of care. Patient was seen and examined.
[2020-04-01] MEDS ORDERED: METOPROLOL SUCCINATE (ER) 25 MG TAB.ER.24H PO STA (10:51)
--- NOTE | 2020-04-01 11:56 | XR ---
EXAMINATION TYPE: XR chest 1V DATE OF EXAM: 04/01/2020 HISTORY: Shortness of breath. COMPARISON: 03/27/2020 TECHNIQUE: Single view of the chest is submitted. FINDINGS: Demonstrated are scattered senescent parenchymal change. There is no evidence for focal infiltrate. The heart is stable. Hilar and mediastinal structures are within normal limits. Degenerative changes are seen of the dorsal spine. IMPRESSION: 1. Chronic changes without evidence for acute pulmonary disease.
--- NOTE | 2020-04-01 14:25 | P.PN ---
Subjective 74-year-old male with known history of CHF with extremely low EF of 20-25% came in and back pain patient was also treated for CHF exacerbation patient heart rate is still high I am increasing the dose of metoprolol although his blood pressure is extremely borderline with 90s systolic which is not unexpected of because of his poor ejection fraction. Since I'm increasing the dose of metoprolol and his borderline blood pressure patient will be monitored one more day patient the is okay to be discharged to home with home care as per physical therapy and occupational therapy evaluation. The patient is high risk for readmission because of his chronic medical problems including extremely poor EF of 20-25% severe pulmonary hypertension and age. Constitutional: Denied any fatigue denied any fever. Cardio vascular: denied any chest pain, palpitations Gastrointestinal denied any nausea vomiting Pulmonary: Denied any shortness of breath cough Neurologic denied any new focal deficits All inpatient medications were reviewed and appropriate changes in these medications as dictated in the interval history and assessment and plan. Objective - Vital Signs Vital signs: Vital Signs Temp 97.7 F 04/01/20 12:00 Pulse 97 04/01/20 12:00 Resp 16 04/01/20 12:00 BP 95/61 04/01/20 12:00 Pulse Ox 99 04/01/20 12:00 Intake & Output 03/31/20 04/01/20 04/01/20 18:59 06:59 18:59 Intake Total 670 240 Output Total 600 1200 600 Balance 70 -1200 -360 Weight 59 kg Intake: Intake, IV Titration 200 Amount Magnesium Sulfate-D5w Pmx 200 1 gm In Dextrose/Water 1 100ml.bag @ 100 mls/hr IVPB Q1H [facility] Rx#: [id number] Oral 470 240 Output: Urine 600 1200 600 Other: Voiding Method Indwelling Catheter Indwelling Catheter Indwelling Catheter # Voids 1 - Exam PHYSICAL EXAMINATION: GENERAL: The patient is alert and oriented x3, not in any acute distress. Well developed, well nourished. HEENT: Pupils are round and equally reacting to light. EOMI. No scleral icterus. No conjunctival pallor. Normocephalic, atraumatic. No pharyngeal erythema. No thyromegaly. CARDIOVASCULAR: S1 and S2 present. No murmurs, rubs, or gallops. Tachycardic PULMONARY: Chest is clear to auscultation, no wheezing or crackles. ABDOMEN: Soft, nontender, nondistended, normoactive bowel sounds. No palpable organomegaly. MUSCULOSKELETAL: No joint swelling or deformity. EXTREMITIES: No cyanosis, clubbing, or pedal edema. NEUROLOGICAL: Gross neurological examination did not reveal any focal deficits. SKIN: No rashes. - Labs CBC & Chem 7: 04/01/20 08:14 04/01/20 08:14 Labs: Abnormal Lab Results - Last 24 Hours (Table) 04/01/20 04/01/20 Range/Units 08:14 08:14 Hgb 11.3 L (13.0-17.5) gm/dL Hct 37.2 L (39.0-53.0) % MCH 24.5 L (25.0-35.0) pg MCHC 30.3 L (31.0-37.0) g/dL RDW 15.9 H (11.5-15.5) % Sodium 135 L (137-145) mmol/L Chloride 95 L (98-107) mmol/L BUN 48 H (9-20) mg/dL Creatinine 2.15 H (0.66-1.25) mg/dL Glucose 123 H (74-99) mg/dL Microbiology - Last 24 Hours (Table) 03/25/20 23:22 Blood Culture - Final Blood No Growth after 144 hours 03/29/20 18:51 Blood Culture - Preliminary Blood No Growth after 48 hours 03/29/20 21:21 Urine Culture - Final Urine,Catheterized Assessment and Plan Plan: #1 congestive heart failure chronic systolic dysfunction with acute exacerbation: Patient is presently euvolemic, patient will be continued on oral Lasix. #2 COPD exacerbation without any evidence of exacerbation #3 severe pulmonary hypertension #4 abnormality in troponin, not consistent with acute coronary syndrome, likely secondary to hypoxia and abnormal renal function. Patient consistently has abnormality in troponin. #5 acute renal failure secondary to excessive diuretic and losartan which is being discontinued #6 frequent falls with history of chronic back pain: May need physical therapy at home #7 coronary artery disease with prior LAD stenting #8 COPD #9 hypertension #10 hyperlipidemia #11 history of EtOH abuse #12 atrial fibrillation with rapid ventricular rate: Increasing the dose of meto prolol XL patient has borderline blood pressure #13 nicotine dependence #14 asymptomatic bacteriuria without any evidence of infection and antibiotics #15 atrial fibrillation, paroxysmal, patient has not been on anticoagulation in the past because of EtOH abuse #16 hyperkalemia secondary to angiotensin receptor rebecca which is being discontinued. Patient rises and creatinine is 2.15-baseline appears to be around 1.2 #17 chronic kidney disease stage III secondary to hypertensive nephrosclerosis and anemia of chronic kidney disease
[2020-04-01] MEDS: ATORVASTATIN 80 MG TAB PO SCH (16:37)
--- NOTE | 2020-04-01 16:55 | CONS ---
CONSULTATION REASON FOR CONSULT: Renal failure. HISTORY OF PRESENT ILLNESS: Patient is a 74-year-old male who was initially admitted to the hospital on 03/25/2020 with complaints of flank pain and shortness of breath. He also had severe back pain. Patient was found to be in CHF and has been diuresed. His serum creatinine was 1.4 on initial admission. It increased to 2.4 yesterday and today it is at 2.1 mg/dL. Previous creatinine had been about 1.5 to 2.2 mg/dL in October and January of 2020. Patient currently has an indwelling Palomares catheter with 24-hour urine output charted at 3.1 L. Currently patient is not on any Lasix. His blood pressure has been running low, around 78 to 97 mmHg systolic, and patient has been started on midodrine at 2.5 mg b.i.d. So far cultures are negative. Patient is also maintained on empiric ceftriaxone. PAST MEDICAL HISTORY: CKD, stage 3B, with episodes of acute kidney injury on previous admissions, cardiomyopathy, CHF, coronary artery disease, COPD, hypertension, chronic liver disease, history of [place], osteoarthritis, hyperlipidemia, gastroesophageal reflux disease. PAST SURGICAL HISTORY: Adenoidectomy, cardiac catheterization, hernia repair, tonsillectomy, colonoscopy, cataract surgery. SOCIAL HISTORY: Positive for smoking. No history of drug abuse or alcohol abuse. MEDICATIONS: Medications prior to admission included valsartan, spironolactone, midodrine, penicillin, magnesium, Cozaar, Lasix, Flomax, Brilinta, Lopressor Zyrtec, Lipitor, baclofen, Xanax, Prilosec. REVIEW OF SYSTEMS: As per HPI. Other systems negative. ALLERGIES: NONE. PHYSICAL EXAMINATION: Patient is currently comfortable, awake. He wants to go home. He denies any significant complaints. Blood pressure was 80/57 this morning and then improved to 97/67, heart rate 110 per minute. Patient is afebrile. EXAMINATION OF THE HEART: S1 and S2. EXAMINATION OF LUNGS: Bilateral breath sounds are heard. ABDOMEN: Soft, non-tender. Examination of lower extremities shows no significant edema. SALVAGE SUPERVISOR exam shows patient is moving all 4 extremities. LABS: Labs show sodium 135, potassium 5.1, chloride 95. CO2 is 30, BUN 48, creatinine 2.15. UA shows no protein, no significant cells; small blood was noted. CBC shows hemoglobin 11.3, white cell count 4.8, platelet count 215,000. Patient had a CT of the abdomen and pelvis on 03/29/2020 without IV contrast. This showed mild right chronic hydronephrosis and cortical cysts noted on the right side as well. ASSESSMENT: 1. Acute kidney injury associated with recent diuresis and hypotension and hypoperfusion. Patient is currently not on any DARION inhibitors or angiotensin receptor blockers, although he was on both Cozaar and valsartan prior to admission. I am not sure of this medication, if this was accurate for home medications. At this point I will increase the midodrine since blood pressure remains on the lower side. Avoid giving IV fluids, given his severe cardiomyopathy and recent admission for CHF exacerbation. I will order a chest x-ray for today as well. The patient has an indwelling Palomares catheter with good urine output. We will maintain him off of Lasix as well for now. 2. Congestive heart failure exacerbation on initial admission, acute on top of chronic, mainly systolic, currently improved. 3. Cardiomyopathy, ejection fraction 20% to 25%. 4. Coronary artery disease with previous history of coronary stents. 5. Severe pulmonary hypertension noted on echocardiogram. 6. History of severe back pain and degenerative joint disease. 7. Mild hyperkalemia on initial admission, currently resolved. 8. Chronic mild right hydronephrosis. Doubt this is contributing to the current acute kidney injury. 9. Chronic kidney disease, NKF stage 3, most likely secondary to nephrosclerosis with possibly underlying obstructive uropathy which is chronic, as there is evidence of mild chronic right hydronephrosis. Patient will need urology followup as outpatient. PLAN: Increase midodrine. Check chest x-ray. Continue to hold off on Lasix. Avoid IV fluids. Repeat labs in a.m. Thank you for this consultation. MMODL / IJN: [id number] /
[2020-04-02] MEDS: TICAGRELOR 90 MG TAB PO SCH (04:50)
[2020-04-02] MEDS: PANTOPRAZOLE 40 MG TABLET PO SCH (04:50)
[2020-04-02] MEDS: ALPRAZolam 0.5 MG TAB PO SCH (04:50)
[2020-04-02] MEDS: LORATADINE 10 MG TAB PO SCH (04:50)
[2020-04-02] MEDS: TAMSULOSIN 0.4 MG CAP.ER.24H PO SCH (04:50)
[2020-04-02] MEDS: BACLOFEN 10 MG TAB PO SCH (04:50)
[2020-04-02] MEDS: HYDROcodone/APAP 7.5-325MG 1 EACH TAB PO PRN (04:50)
[2020-04-02] MEDS: MAGNESIUM OXIDE 400 MG TAB PO SCH (04:50)
[2020-04-02] MEDS: MIDODRINE 5 MG TAB PO SCH ×2 (04:52→11:23)
[2020-04-02 06:51] LABS: Calcium 9.3 mg/dL (8.4-10.2); Potassium 5.2 mmol/L (3.5-5.1)
[2020-04-02 08:55] VITALS: RESP 16; TEMP 97.9
[2020-04-02] MEDS: HEPARIN SODIUM,PORCINE 5,000 UNIT/ML 1 ML VIAL SQ SCH (08:55)
[2020-04-02] MEDS: POLYETHYLENE GLYCOL 3350 17 GM POWD.PACK PO SCH ×2 (08:55→09:00)
[2020-04-02] MEDS ORDERED: METOPROLOL SUCCINATE (ER) 50 MG TAB.ER.24H PO SCH (09:00)
[2020-04-02] MEDS ORDERED: SODIUM POLYSTYRENE SULFONATE 15 GM/60 ML BOTTLE PO STA (10:20)
--- NOTE | 2020-04-02 11:24 | P.PN ---
Subjective Progress Note Date: 04/02/20 This is a 74-year-old gentleman who follows with Dr. Diop in the office. He has a history of hypertension, hyperlipidemia, prior liver disease, history of EtOH abuse, COPD, GERD, history of coronary artery disease with prior successful stenting of the LAD, chronic kidney disease, most recent h ospitalization was in January of this year. He presented to the hospital on this occasion with symptoms of shortness of breath, productive cough, and frequent falls. According to the patient, with even minimal exertion he states he can hardly breathe and it takes quite some time before his breathing stabilizes. Chest x-ray on presentation here showed small right pleural effusion which appears to be new as compared with prior exam. EKG on presentation here shows normal sinus rhythm with a first-degree AV block, left axis deviation and nonspecific ST-T wave changes. Blood pressure 110/70, heart rate in the 80s, afebrile. White blood cell count 5.9, hemoglobin 9.7, platelet count 157. Sodi um 137, potassium 4.8, BUN 26, creatinine 1.4, troponins 0.035, platelet 33, 0.042. Upon review of prior admissions, patient persistently has abnormality in troponin. BNP level 11,000. At the time of my examination this morning, patient has a productive cough, he is somewhat short of breath, his biggest complaint is lower back discomfort and lower abdominal discomfort. 03/27/2020 Patient was seen and examined this morning, complaining of significant lower back pain. He does state that his breathing today is improved as compared with yesterday. His weight is down. Blood pressure 105/60 with a heart rate of 90, 94% on room air. White blood cell count 6.9, hemoglobin 10.4, platelet count 185. Sodium 139, potassium 4.7, BUN 29, creatinine 1.6. 03/28/2020 Patient was seen and examined this morning, overall he is feeling significantly better, chest x-ray shows improvement. Blood pressure today 88/60, good urine output. White blood cell count 6.4, hemoglobin 10.3, platelet count 209. Sodium 138, potassium 4.5, BUN 32, creatinine 1.7. We will discontinue the IV Lasix today and change patient over to Lasix 40 mg one tablet by mouth twice a day. 03/29/2020 Patient seen and examined this morning, he is a little more groggy today, he received some Xanax earlier. Blood pressure running around 78-80 systolic. We will put some parameters on his beta rebecca and angiotensin rebecca. Continue by mouth Lasix. Sodium 138, potassium 4.5, BUN 32, creatinine 1.7. 03/30/2020 Patient was seen and examined this morning, blood pressure 95/60, 86/58, heart rate has been in the 90s. 03/31/2020 Patient seen and examined this morning, continues to be in atrial fibrillation this morning, heart rate 110, blood pressure remains on the low side and patient continues to be quite sleepy and groggy. We will discontinue the losartan because of the hypotension, and worsening renal function. Hold his Lasix for 24 hours and resume it from tomorrow at 40 mg daily. Check his lytes BUN and creatinine in the morning. Blood pressure 82/40, 94% on room air. 04/01/20 Patient seen and examined this morning, denies any chest discomfort and breathing overall is stable. His main complaint is back pain. Let pressure this morning 98/60 with a heart rate of 108, 97% on room air. White blood cell count 4.8, hemoglobin 11.3, platelet count 2:15. Sodium 135, potassium 5.1, BUN 48, creatinine 2.1. 04/02/2020 Patient seen and examined this morning, but pressure 94/60 with a heart rate in the 90s. Potassium 5.2 today, BUN 45, creatinine 1.9 Objective - Vital Signs Vital signs: Vital Signs Temp 97.9 F 04/02/20 08:00 Pulse 90 04/02/20 08:50 Resp 16 04/02/20 08:50 BP 93/56 04/02/20 08:00 Pulse Ox 96 04/02/20 08:00 Intake & Output 04/01/20 04/02/20 04/02/20 18:59 06:59 18:59 Intake Total 720 210 480 Output Total 1000 725 Balance -280 210 -245 Weight 62.5 kg Intake: Oral 720 210 480 Output: Urine 1000 725 Other: Voiding Method Indwelling Catheter Indwelling Catheter Indwelling Catheter - Exam PHYSICAL EXAMINATION: GENERAL: 74-year-old gentleman in no acute distress at the time of my examination, complaining of lower back pain HEENT: Head is atraumatic, normocephalic. Pupils equal, round. Sclera anicteric. Conjunctiva are clear. Mucous membranes of the mouth are moist. Neck is supple. There is no elevated jugular venous pressure. No carotid bruit is heard. HEART EXAMINATION: Heart S1 and S2 normal CHEST EXAMINATION: Lungs reveal diminished air entry to the bases bilaterally, fine expiratory wheezing and coarse rhonchi throughout ABDOMEN: Soft, nontender. Bowel sounds are heard. No organomegaly noted. EXTREMITIES: 2+ peripheral pulses with no evidence of peripheral edema and no calf tenderness noted. NEUROLOGIC patient is awake, sleepy, oriented X3 . - Labs CBC & Chem 7: 04/01/20 08:14 04/02/20 06:08 Labs: Abnormal Lab Results - Last 24 Hours (Table) 04/02/20 Range/Units 06:08 Sodium 136 L (137-145) mmol/L Potassium 5.2 H (3.5-5.1) mmol/L BUN 45 H (9-20) mg/dL Creatinine 1.96 H (0.66-1.25) mg/dL Glucose 104 H (74-99) mg/dL Microbiology - Last 24 Hours (Table) 03/29/20 18:51 Blood Culture - Preliminary Blood No Growth after 72 hours Assessment and Plan Plan: Assessment and plan #1 symptoms of progressively worsening shortness of breath, evidence of congestive heart failure, BNP level 1I,000, systolic acute on chronic #2 COPD exacerbation with possible tracheobronchitis #3 severe pulmonary hypertension #4 abnormality in troponin, not consistent with acute coronary syndrome, likely secondary to hypoxia and abnormal renal function. Patient consistently has ab normality in troponin. #5 chronic anemia #6 frequent falls with history of chronic back pain #7 coronary artery disease with prior LAD stenting #8 COPD #9 hypertension #10 hyperlipidemia #11 history of EtOH abuse #12 history of liver disease #13 nicotine dependence #14 UTI #15 atrial fibrillation, paroxysmal, patient has not been on anticoagulation in the past because of EtOH abuse Plan From cardiology's perspective, we will continue to hold the losartan and resume Lasix as an outpatient. Repeat chest x-ray did not reveal any CHF. DNP note has been reviewed, I agree with a documented findings and plan of care. Patient was seen and examined.
[2020-04-02 11:27] VITALS: BP 84/53; PULSE 88
--- NOTE | 2020-04-02 12:22 | PN ---
PROGRESS NOTE The patient is seen for follow up for acute kidney injury on top of chronic kidney disease. Patient is currently comfortable. He wants to go home. He denies any significant complaints. Potassium was mildly elevated at 5.2. Currently patient is not on any diuretics. On examination, blood pressure was 84/53, heart rate 88 per minute. He is afebrile. Examination of the heart S1, S2. Examination of the lungs, bilateral breath sounds are heard. Abdomen, soft, nontender. Examination of lower extremities shows no significant edema. BEE TENDER exam shows patient moving all 4 extremities. LAB: Show sodium 136, potassium 5.2, chloride 98, BUN 45, creatinine 1.96. ASSESSMENT: 1. Acute kidney injury secondary to hypotension and recent diuresis. Continue off angiotensin receptor blockers and diuretics. However, patient will need to resume low-dose diuretics down the road. He will need to be monitored as outpatient. 2. Cardiomyopathy, ejection fraction 20-25%. 3. Congestive heart failure acute on top of chronic mainly systolic on admission, currently improved. 4. Severe pulmonary hypertension. 5. Mild hyperkalemia. The patient will be maintained on low-potassium diet and he will resume low-dose loop diuretics which will help with the hyperkalemia as well. 6. Chronic kidney disease stage 3 secondary to nephrosclerosis with possible underlying obstructive uropathy. Follow up with Urology as outpatient. 7. Hypotension, currently maintained on midodrine. Patient is asymptomatic. I am not sure if cortisol level has been checked this admission. It was checked on 03/30 and it was 9, which is slightly on the lower side. PLAN: Continue with the midodrine. Maintain patient on low-potassium diet. He can be discharged with plans to follow up as outpatient. I would recommend getting a cosyntropin stimulation test given the low cortisol level. MMODL / IJN: [id number] /
--- NOTE | 2020-04-02 13:30 | P.DS ---
Providers Date of admission: 03/27/20 11:08 Attending physician: Ana Giang Consults: 03/25/20 19:08 Consult Physician Urgent Consulting Provider: [facility] Consult Reason/Comments: respiratory insuff, hx heart failure Do you want consulting provider notified?: Yes 03/27/20 16:02 Consult to Anesthesia Routine Consulting Provider: [facility] Consult Reason/Comments: lower back pain, pt wants to be evaluated for a cortisone shot 03/31/20 20:01 Consult Physician Routine Consulting Provider: Gemma Lane Consult Reason/Comments: arf Do you want consulting provider notified?: Yes Primary care physician: Dannie Montalvo [facility] Hospital Course: 74-year-old male with known history of CHF with extremely low EF of 20-25% came in and back pain patient was also treated for CHF exacerbation patient heart rate is still high I am increasing the dose of metoprolol although his blood pressure is extremely borderline with 90s systolic which is not unexpected of because of his poor ejection fraction. Since I'm increasing the dose of metoprolol and his borderline blood pressure patient will be monitored one more day patient the is okay to be discharged to home with home care as per physical therapy and occupational therapy evaluation. The patient is high risk for readmission because of his chronic medical problems including extremely poor EF of 20-25% severe pulmonary hypertension and age. 04/02/2020 Patient the serum potassium remains high at 5.2 because of which am doing a dose of capsulate and Aldactone is being this can urine as well patient is not on losartan and Aldactone because of hypotension and hyperkalemia and acute renal failure acute renal failure is improving at this time patient was asked to hold off on Lasix tomorrow as well and the start taking it from day after. PHYSICAL EXAMINATION: GENERAL: The patient is alert and oriented x3, not in any acute distress. Well developed, well nourished. HEENT: Pupils are round and equally reacting to light. EOMI. No scleral icterus. No conjunctival pallor. Normocephalic, atraumatic. No pharyngeal erythema. No thyromegaly. CARDIOVASCULAR: S1 and S2 present. No murmurs, rubs, or gallops. Tachycardic PULMONARY: Chest is clear to auscultation, no wheezing or crackles. ABDOMEN: Soft, nontender, nondistended, normoactive bowel sounds. No palpable organomegaly. MUSCULOSKELETAL: No joint swelling or deformity. EXTREMITIES: No cyanosis, clubbing, or pedal edema. NEUROLOGICAL: Gross neurological examination did not reveal any focal deficits. SKIN: No rashes. Assessment and Plan Plan: #1 congestive heart failure chronic systolic dysfunction with acute exacerbation: Patient is presently euvolemic, patient will be continued on oral Lasix. #2 COPD exacerbation without any evidence of exacerbation #3 severe pulmonary hypertension #4 abnormality in troponin, not consistent with acute coronary syndrome, likely secondary to hypoxia and abnormal renal function. Patient consistently has abnormality in troponin. #5 acute renal failure secondary to excessive diuretic and losartan which is being discontinued #6 frequent falls with history of chronic back pain: May need physical therapy at home #7 coronary artery disease with prior LAD stenting #8 COPD #9 hypertension #10 hyperlipidemia #11 history of EtOH abuse #12 atrial fibrillation with rapid ventricular rate: Increasing the dose of metoprolol XL patient has borderline blood pressure #13 nicotine dependence #14 asymptomatic bacteriuria without any evidence of infection and antibiotics #15 atrial fibrillation, paroxysmal, patient has not been on anticoagulation in the past because of EtOH abuse #16 hyperkalemia secondary to angiotensin receptor rebecca which is being discontinued. Patient rises and creatinine is 2.15-baseline appears to be around 1.2 #17 chronic kidney disease stage III secondary to hypertensive nephrosclerosis and anemia of chronic kidney disease Patient Condition at Discharge: Stable Plan - Discharge Summary Discharge Rx Participant: No New Discharge Prescriptions: New HYDROcodone/APAP 7.5-325MG [[place] 7.5-325] 1 each PO Q6H PRN #12 tab PRN Reason: MILD TO MODERATE Pain Metoprolol Succinate (ER) [Toprol XL] 50 mg PO DAILY #30 tab.er.24h Continue Omeprazole [PriLOSEC] 20 mg PO BID@529,173 Baclofen [Lioresal] 10 mg PO BID@529,1729 Cetirizine HCl [Zyrtec] 10 mg PO DAILY@0530 Ticagrelor [Brilinta] 90 mg PO BID@529,1729 Atorvastatin Calcium [Lipitor] 80 mg PO HS@173 Tamsulosin [Flomax] 0.4 mg PO DAILY@0530 Midodrine [ProAmatine] 5 mg PO TID Magnesium Oxide [Mag-Ox] 400 mg PO BID@529,1729 Loratadine 10 mg PO DAILY@529 Furosemide [Lasix] 40 mg PO DAILY@529 #0 Discontinued ALPRAZolam 1 mg PO BID@529,1729 Metoprolol Tartrate [Lopressor] 25 mg PO BID@529,1729 Losartan [Cozaar] 25 mg PO DAILY@529 Spironolactone 25 mg PO DAILY@529 Penicillin V Potassium [Pen Vee K] 500 mg PO Q6H Valsartan 40 mg PO DAILY@529 Discharge Medication List Omeprazole [PriLOSEC] 20 mg PO BID@05,172907/19/16 [History] Baclofen [Lioresal] 10 mg PO BID@529,172901/31/17 [History] Atorvastatin Calcium [Lipitor] 80 mg PO HS@172910/30/19 [History] Cetirizine HCl [Zyrtec] 10 mg PO DAILY@52910/30/19 [History] Ticagrelor [Brilinta] 90 mg PO BID@529,172910/30/19 [History] Tamsulosin [Flomax] 0.4 mg PO DAILY@52901/27/20 [History] Loratadine 10 mg PO DAILY@52903/25/20 [History] Magnesium Oxide [Mag-Ox] 400 mg PO BID@529,172903/25/20 [History] Midodrine [ProAmatine] 5 mg PO TID 03/25/20 [History] Furosemide [Lasix] 40 mg PO DAILY@529 #0 04/02/20 [Rx] HYDROcodone/APAP 7.5-325MG [[place] 7.5-325] 1 each PO Q6H PRN #12 tab 04/02/20 [Rx] Metoprolol Succinate (ER) [Toprol XL] 50 mg PO DAILY #30 tab.er.24h 04/02/20 [Rx] Follow up Appointment(s)/Referral(s): Chapin Hou MD [STAFF PHYSICIAN] - 04/10/20 2:45 pm (With Chelsey) Carlitos Pandey MD [Primary Care Provider] - 04/09/20 10:30 am (With VICKIE Ayala) [facility], [NON-STAFF] - Patient Instructions/Handouts: Heart Failure (DC), Potassium Content of Foods List (DC) Activity/Diet/Wound Care/Special Instructions: Walker provided to pt. Discharge Disposition: HOME WITH HOME HEALTH SERVICES
== END 2020-04-02 12:07 | disposition home health service (06) | DRG 291 ==
LOC: EC 15:11 → 4SSUR 19:07 → 3SCARD 03-26 08:01 → OBSVTOIN 03-27 11:08
PROVIDERS: ADMIT Internal Medicine; ATTEND Internal Medicine
DX: I13.0 Hypertensive heart and chronic kidney disease with heart failure and stage 1 through stage 4 chronic kidney disease, or unspecified chronic kidney disease (principal); I50.23 Acute on chronic systolic (congestive) heart failure; R57.0 Cardiogenic shock; J44.1 Chronic obstructive pulmonary disease with (acute) exacerbation; N17.9 Acute kidney failure, unspecified; I25.10 Atherosclerotic heart disease of native coronary artery without angina pectoris; M19.90 Unspecified osteoarthritis, unspecified site; E78.5 Hyperlipidemia, unspecified; K21.9 Gastro-esophageal reflux disease without esophagitis; F17.200 Nicotine dependence, unspecified, uncomplicated; I25.5 Ischemic cardiomyopathy; E87.5 Hyperkalemia; I27.20 Pulmonary hypertension, unspecified; Z20.828 Contact with and (suspected) exposure to other viral communicable diseases; H91.90 Unspecified hearing loss, unspecified ear; I48.0 Paroxysmal atrial fibrillation; M48.061 Spinal stenosis, lumbar region without neurogenic claudication; N18.3 Chronic kidney disease, stage 3 (moderate); M54.5 Low back pain; D63.1 Anemia in chronic kidney disease; R29.6 Repeated falls; M51.36 Other intervertebral disc degeneration, lumbar region; R26.9 Unspecified abnormalities of gait and mobility; Z96.1 Presence of intraocular lens; T44.5X5A Adverse effect of predominantly beta-adrenoreceptor agonists, initial encounter; I34.0 Nonrheumatic mitral (valve) insufficiency; I44.0 Atrioventricular block, first degree; Z79.899 Other long term (current) drug therapy; Z79.02 Long term (current) use of antithrombotics/antiplatelets; I25.2 Old myocardial infarction; Z87.01 Personal history of pneumonia (recurrent); Z87.440 Personal history of urinary (tract) infections; Z98.42 Cataract extraction status, left eye; Z98.41 Cataract extraction status, right eye; Z90.89 Acquired absence of other organs; Z98.890 Other specified postprocedural states; Z82.49 Family history of ischemic heart disease and other diseases of the circulatory system; Z82.3 Family history of stroke; Z91.81 History of falling; Z95.5 Presence of coronary angioplasty implant and graft
CPT/HCPCS: 36415; 51702; 71045; 71046; 72100; 72131; 74176; 80048; 80053; 81001; 82533; 82550; 83605; 83735; 83880; 84443; 84484; 85025; 85610; 85730; 87040; 87086; 93005; 93306; 94640; 96365; 96366; 96367; 96372; 96375; 96376; 99285

== ENCOUNTER 2020-06-15 16:44 | Inpatient (IN) | payer MEDICARE, OTHER ==
--- NOTE | 2020-06-15 17:19 | ED ---
General Adult HPI - General Chief complaint: Shortness of Breath Stated complaint: SOB, multiple complaints Time Seen by Provider: 06/15/20 17:04 Source: patient, family Mode of arrival: ambulatory Limitations: no limitations - History of Present Illness Initial comments: Dictation was produced using [employer] dictation software. please excuse any gra mmatical, word or spelling errors. This patient was cared for during a federal and state declared state of emergency secondary to Covid 19 Chief Complaint: 74-year-old male past medical history of COPD, heart failure, dyslipidemia hypertension and myocardial infarctions presents with dyspnea and urinary incontinence History of Present Illness: Patient is a poor historian. 74-year-old male who presents with dyspnea and urinary incontinence. Patient states that he also feels weak. Today he noted that he woke up and urinated on himself in bed 4 times. He states he doesn't even know that he paid himself. Patient started taking Flomax recently prescribed by his primary care physician. Patient has any back pain. Denies any numbness and paresthesias. Patient has no pain comp laints. Does also feel short of breath. Patient has history of COPD that is managed by his primary care physician. Patient still continues to use tobacco on a regular basis. Denies any fever. Denies any productive cough. The ROS documented in this emergency department record has been reviewed and confirmed by me. Those systems with pertinent positive or negative responses have been documented in the HPI. All other systems are other negative and/or noncontributory. PHYSICAL EXAM: General Impression: Alert and oriented x3, not in acute distress HEENT: Normocephalic atraumatic, extra-ocular movements intact, pupils equal and reactive to light bilaterally, mucous membranes moist. Cardiovascular: Heart regular rate and rhythm Chest: Able to complete full sentences, no retractions, no tachypnea, mild respiratory crackles Abdomen: abdomen soft, non-tender, non-distended, no organomegaly Musculoskeletal: Pulses present and equal in all extremities, no peripheral edema Motor: no focal deficits noted Neurological: CN II-XII grossly intact, no focal motor or sensory deficits noted Skin: Intact with no visualized rashes Psych: Normal affect and mood ED course: 74-year-old male presents with urinary incontinence, shortness of breath. Blood pressure in triage was 85/55. Patient was moved to room 3 and repeat blood pressure was 104/70. Rest of vital signs within acceptable limits. Patient does not appear dyspneic at bedside. He does have end expiratory crackles on auscultation of the lungs. He does not have any chest pain. He is not hypoxic. His urinalysis issue also of urinary incontinence. He states he urinated in the bed 4 times today. He denies even feeling the urge of urinating. He recently started Flomax prescribed by his PCP. Has no back pain. He has no focal neurologic deficits.Laboratory evaluation obtained. No leukocytosis. Hemoglobin stable at 9.8. Cardiac panel is unremarkable. Venous blood gas shows pH of 7.32 pCO2 43 and a bicarb of 22. Metabolic panel is obtained. Bicarbonate 19 with anion gap of 19. BUN 60, creatinine 3.67. Lacti c acidosis 5.0. Troponin is 0.053. Patient has history of elevated troponin. This number seems to be around his baseline. Chest x-ray shows cardiomegaly with no active cardiopulmonary disease. Computed tomography scan the brain shows no acute processes. Medications were reviewed. Patient has orders for 40 mg Lasix daily and Flomax. Consider patient's clinical presentation with patient's symptoms are secondary to dehydration secondary to diuretic use. She given intravenous fluids with improvement of blood pressure. Patient did appear to be more short of breath at bedside when asked to take off his T-shirt. Plan care bedside ultrasound performed showing no signs to suggest pulmonary edema. Patient's wheezing likely secondary to mild COPD exacerbation. Patient on for breathing treatment. Patient will be admitted with consultation to nephrology and pulmonology. Discussed patient case with Jennifer Bennett was on-call for [facility] who is willing to accept patient's care. EKG interpretation: Ventricular rate 81, sinus rhythm with first-degree AV block, ME interval 210, QRS 110, QTc 469. No ME prolongation, no QTC prolongation, no ST or T-wave changes noted. EKG compared to 03/25/2020 showing no changes. Overall, this EKG is unremarkable - Related Data Home Medications Medication Instructions Recorded Confirmed Omeprazole [PriLOSEC] 20 mg PO BID@0530,1730 07/19/16 06/15/20 Baclofen [Lioresal] 10 mg PO BID@0530,1730 01/31/17 06/15/20 Atorvastatin Calcium [Lipitor] 80 mg PO HS@1730 10/30/19 06/15/20 Cetirizine HCl [Zyrtec] 10 mg PO DAILY@0530 10/30/19 06/15/20 Ticagrelor [Brilinta] 90 mg PO BID@0530,1730 10/30/19 06/15/20 Tamsulosin [Flomax] 0.4 mg PO DAILY@0530 01/27/20 06/15/20 Loratadine 10 mg PO DAILY@0530 03/25/20 06/15/20 Magnesium Oxide [Mag-Ox] 400 mg PO BID@0530,17303/25/20 06/15/20 Midodrine [ProAmatine] 2.5 mg PO TID 03/25/20 06/15/20 ALPRAZolam [Xanax] 0.5 mg PO BID PRN 06/15/20 06/15/20 Metoprolol Succinate (ER) [Toprol 50 mg PO DAILY@52906/15/20 06/15/20 XL] Previous Rx's Medication Instructions Recorded Furosemide [Lasix] 40 mg PO DAILY@0530 #0 04/02/20 Allergies Allergy/AdvReac Type Severity Reaction Status Date / Time No Known Allergies Allergy Verified 06/15/20 18:32 Review of Systems ROS Statement: Those systems with pertinent positive or pertinent negative responses have been documented in the HPI. ROS Other: All systems not noted in ROS Statement are negative. Past Medical History Past Medical History: Coronary Artery Disease (CAD), Chest Pain / Angina, Heart Failure, COPD, GERD/Reflux, Hyperlipidemia, Hypertension, Liver Disease, Myocardial Infarction (NH), Osteoarthritis (OA), Pneumonia Additional Past Medical History / Comment(s): 04/02/16 UTI WITH SEPSIS, STATES HE SELF CATHS chronic back PAIN ddd, osteoporosis , PT stated he pulls his own teeth. 01/21/2016 Patient states he self caths intermittently when needed, is RAMONA bilaterally, edentulous and has 3 stents. Last Myocardial Infarction Date:: 2015 History of Any Multi-Drug Resistant Organisms: None Reported Past Surgical History: Adenoidectomy, Heart Catheterization, Hernia Repair, Tonsillectomy Additional Past Surgical History / Comment(s): COLONOSCOPY,CATARACTS. recent heart cath -has triple vessel disease-no sx as of yet. Past Anesthesia/Blood Transfusion Reactions: No Reported Reaction Date of Last Stent Placement:: 2015 Past Psychological History: No Psychological Hx Reported Smoking Status: Current every day smoker Past Alcohol Use History: None Reported Past Drug Use History: None Reported - Past Family History Mother Family Medical History: Myocardial Infarction (NH) Additional Family Medical History / Comment(s): Mother had a NH in her 80s and . Brother(s) Family Medical History: CVA/TIA Sister(s) Family Medical History: CVA/TIA Father Family Medical History: No Reported History Additional Family Medical History / Comment(s): Father when pt was young from a drowning. General Exam Limitations: no limitations Course Vital Signs 06/15/20 06/15/20 06/15/20 16:49 17:07 18:06 Temperature 97 F L Pulse Rate 79 77 77 Respiratory 18 18 18 Rate Blood Pressure 85/55 104/78 87/71 O2 Sat by Pulse 95 100 Oximetry 06/15/20 18:52 Temperature Pulse Rate Respiratory Rate Blood Pressure 111/86 O2 Sat by Pulse Oximetry Medical Decision Making - Lab Data Result diagrams: 06/15/20 17:17 06/15/20 17:17 Lab Results 06/15/20 06/15/20 06/15/20 Range/Units 17:17 17:17 17:17 WBC 5.0 (3.8-10.6) k/uL RBC 4.23 L (4.30-5.90) m/uL Hgb 9.8 L (13.0-17.5) gm/dL Hct 32.9 L (39.0-53.0) % MCV 77.7 L (80.0-100.0) fL MCH 23.1 L (25.0-35.0) pg MCHC 29.8 L (31.0-37.0) g/dL RDW 19.2 H (11.5-15.5) % Plt Count 192 (150-450) k/uL Neutrophils % 60 % Lymphocytes % 27 % Monocytes % 7 % Eosinophils % 2 % Basophils % 1 % Neutrophils # 3.0 (1.3-7.7) k/uL Lymphocytes # 1.4 (1.0-4.8) k/uL Monocytes # 0.4 (0-1.0) k/uL Eosinophils # 0.1 (0-0.7) k/uL Basophils # 0.0 (0-0.2) k/uL Hypochromasia Marked Poikilocytosis Slight Anisocytosis Slight Microcytosis Slight PT 14.0 H (9.0-12.0) sec INR 1.4 H (<1.2) APTT 23.1 (22.0-30.0) sec VBG pH (7.31-7.41) VBG pCO2 (37-51) mmHg VBG HCO3 (24-28) mmol/L Sodium 142 (137-145) mmol/L Potassium 4.1 (3.5-5.1) mmol/L Chloride 104 (98-107) mmol/L Carbon Dioxide 19 L (22-30) mmol/L Anion Gap 19 mmol/L BUN 60 H (9-20) mg/dL Creatinine 3.67 H (0.66-1.25) mg/dL Est GFR (CKD-EPI)AfAm 18 (>60 ml/min/1.73 sqM) Est GFR (CKD-EPI)NonAf 15 (>60 ml/min/1.73 sqM) Glucose 120 H (74-99) mg/dL Plasma Lactic Acid Alexey (0.7-2.0) mmol/L Calcium 9.5 (8.4-10.2) mg/dL Magnesium 1.7 (1.6-2.3) mg/dL Total Bilirubin 0.8 (0.2-1.3) mg/dL AST 37 (17-59) U/L ALT 23 (4-49) U/L Alkaline Phosphatase 152 H (38-126) U/L Troponin I (0.000-0.034) ng/mL NT-Pro-B Natriuret Pep pg/mL Total Protein 8.1 (6.3-8.2) g/dL Albumin 4.3 (3.5-5.0) g/dL 06/15/20 06/15/20 06/15/20 Range/Units 17:17 17:17 17:17 WBC (3.8-10.6) k/uL RBC (4.30-5.90) m/uL Hgb (13.0-17.5) gm/dL Hct (39.0-53.0) % MCV (80.0-100.0) fL MCH (25.0-35.0) pg MCHC (31.0-37.0) g/dL RDW (11.5-15.5) % Plt Count (150-450) k/uL Neutrophils % % Lymphocytes % % Monocytes % % Eosinophils % % Basophils % % Neutrophils # (1.3-7.7) k/uL Lymphocytes # (1.0-4.8) k/uL Monocytes # (0-1.0) k/uL Eosinophils # (0-0.7) k/uL Basophils # (0-0.2) k/uL Hypochromasia Poikilocytosis Anisocytosis Microcytosis PT (9.0-12.0) sec INR (<1.2) APTT (22.0-30.0) sec VBG pH (7.31-7.41) VBG pCO2 (37-51) mmHg VBG HCO3 (24-28) mmol/L Sodium (137-145) mmol/L Potassium (3.5-5.1) mmol/L Chloride (98-107) mmol/L Carbon Dioxide (22-30) mmol/L Anion Gap mmol/L BUN (9-20) mg/dL Creatinine (0.66-1.25) mg/dL Est GFR (CKD-EPI)AfAm (>60 ml/min/1.73 sqM) Est GFR (CKD-EPI)NonAf (>60 ml/min/1.73 sqM) Glucose (74-99) mg/dL Plasma Lactic Acid Alexey 5.0 H* (0.7-2.0) mmol/L Calcium (8.4-10.2) mg/dL Magnesium (1.6-2.3) mg/dL Total Bilirubin (0.2-1.3) mg/dL AST (17-59) U/L ALT (4-49) U/L Alkaline Phosphatase (38-126) U/L Troponin I 0.053 H* (0.000-0.034) ng/mL NT-Pro-B Natriuret Pep 12548 pg/mL Total Protein (6.3-8.2) g/dL Albumin (3.5-5.0) g/dL 06/15/20 Range/Units 18:05 WBC (3.8-10.6) k/uL RBC (4.30-5.90) m/uL Hgb (13.0-17.5) gm/dL Hct (39.0-53.0) % MCV (80.0-100.0) fL MCH (25.0-35.0) pg MCHC (31.0-37.0) g/dL RDW (11.5-15.5) % Plt Count (150-450) k/uL Neutrophils % % Lymphocytes % % Monocytes % % Eosinophils % % Basophils % % Neutrophils # (1.3-7.7) k/uL Lymphocytes # (1.0-4.8) k/uL Monocytes # (0-1.0) k/uL Eosinophils # (0-0.7) k/uL Basophils # (0-0.2) k/uL Hypochromasia Poikilocytosis Anisocytosis Microcytosis PT (9.0-12.0) sec INR (<1.2) APTT (22.0-30.0) sec VBG pH 7.32 (7.31-7.41) VBG pCO2 43 (37-51) mmHg VBG HCO3 22 L (24-28) mmol/L Sodium (137-145) mmol/L Potassium (3.5-5.1) mmol/L Chloride (98-107) mmol/L Carbon Dioxide (22-30) mmol/L Anion Gap mmol/L BUN (9-20) mg/dL Creatinine (0.66-1.25) mg/dL Est GFR (CKD-EPI)AfAm (>60 ml/min/1.73 sqM) Est GFR (CKD-EPI)NonAf (>60 ml/min/1.73 sqM) Glucose (74-99) mg/dL Plasma Lactic Acid Alexey (0.7-2.0) mmol/L Calcium (8.4-10.2) mg/dL Magnesium (1.6-2.3) mg/dL Total Bilirubin (0.2-1.3) mg/dL AST (17-59) U/L ALT (4-49) U/L Alkaline Phosphatase (38-126) U/L Troponin I (0.000-0.034) ng/mL NT-Pro-B Natriuret Pep pg/mL Total Protein (6.3-8.2) g/dL Albumin (3.5-5.0) g/dL Disposition Clinical Impression: Dyspnea, BALBINA (acute kidney injury) Disposition: ADMITTED IP TO THIS HOSP Condition: Fair Referrals: Carlitos Pandey MD [Primary Care Provider] - 1-2 days Decision Time: 19:01
[2020-06-15 17:45] LABS: Albumin 4.3 g/dL (3.5-5.0); Calcium 9.5 mg/dL (8.4-10.2); Magnesium 1.7 mg/dL (1.6-2.3); Potassium 4.1 mmol/L (3.5-5.1); Total Bilirubin 0.8 mg/dL (0.2-1.3); Total Protein 8.1 g/dL (6.3-8.2)
[2020-06-15 17:46] LABS: INR 1.4 (<1.2); Partial Thromboplastin Time 23.1 sec (22.0-30.0)
--- NOTE | 2020-06-15 17:48 | CT ---
EXAMINATION TYPE: CT brain wo con DATE OF EXAM: 06/15/2020 COMPARISON: 11/02/2019 HISTORY: weakness, ams CT DLP: 1200.4 mGycm Automated exposure control for dose reduction was used. There is cerebral cortical atrophy. There is no mass effect nor midline shift. There is no sign of in tracranial hemorrhage. Calvarium is intact. IMPRESSION: Cerebral atrophy. No acute intracranial abnormality. No change.
--- NOTE | 2020-06-15 17:52 | XR ---
EXAMINATION TYPE: XR chest 2V DATE OF EXAM: 06/15/2020 COMPARISON: 04/01/2020 HISTORY: Weakness TECHNIQUE: 2 views FINDINGS: Heart is enlarged. There is no heart failure. Costophrenic angles are clear. There are ches t leads. Bony thorax is intact. IMPRESSION: Cardiomegaly. No active cardiopulmonary disease. No change.
[2020-06-15 18:00] LABS: Anisocytosis Slight; Basophils % (A) 1 %; Eosinophils # (A) 0.1 k/uL (0-0.7); Eosinophils % (A) 2 %; HCT 32.9 % (39.0-53.0); HGB 9.8 gm/dL (13.0-17.5); Hypochromasia Marked; Lymphocytes # (A) 1.4 k/uL (1.0-4.8); Lymphocytes % (A) 27 %; MCH 23.1 pg (25.0-35.0); MCHC 29.8 g/dL (31.0-37.0); MCV 77.7 fL (80.0-100.0); Mean Platelet Volume 10.1; Microcytosis Slight; Monocytes # (A) 0.4 k/uL (0-1.0); Monocytes % (A) 7 %; Neutrophils % (A) 60 %; Platelet Count 192 k/uL (150-450); Poikilocytosis Slight; RBC 4.23 m/uL (4.30-5.90); RDW 19.2 % (11.5-15.5)
[2020-06-15] MEDS: SODIUM CHLORIDE 0.9% 500 ML 500 ML IV STA ×3 (18:01→19:06)
[2020-06-15 18:17] LABS: VBG PH 7.32 (7.31-7.41)
[2020-06-15] MEDS ORDERED: SODIUM CHLORIDE 0.9% 1,000 ML IV STA (18:31)
[2020-06-15] MEDS ORDERED: IPRATROPIUM 0.5 MG/2.5 ML NEBU INHALATION STA (18:52)
[2020-06-15] MEDS ORDERED: ALBUTEROL NEBULIZED 2.5 MG/3 ML INHALATION STA (18:52)
[2020-06-15] MEDS ORDERED: DEXAMETHASONE SOD PHOSPHATE 10 MG/ML 1 ML VIAL IV STA (18:52)
[2020-06-15] MEDS ORDERED: ONDANSETRON 4 MG/2 ML VIAL IVP PRN (18:58)
[2020-06-15] MEDS ORDERED: ACETAMINOPHEN TAB 325 MG TAB PO PRN (18:58)
[2020-06-15] MEDS ORDERED: NALOXONE 0.4 MG/ML 1 ML VIAL IV PRN (18:58)
[2020-06-15] MEDS ORDERED: ALPRAZolam 1 MG TAB PO PRN (21:38)
[2020-06-15] MEDS: MIDODRINE 5 MG TAB PO SCH (22:01)
[2020-06-15] MEDS: FAMOTIDINE 20 MG TAB PO SCH (22:06)
[2020-06-15] MEDS: SODIUM CHLORIDE 0.9% 1,000 ML IV SCH (22:10)
[2020-06-15] MEDS: ALPRAZolam 0.5 MG TAB PO PRN (23:24)
[2020-06-16] MEDS: oxyCODONE-APAP 5-325MG 1 EACH TAB PO PRN ×2 (03:43→14:44)
[2020-06-16 06:53] LABS: Anisocytosis Slight; Basophils % (A) 0 %; Eosinophils % (A) 0 %; HCT 31.1 % (39.0-53.0); HGB 9.1 gm/dL (13.0-17.5); Hypochromasia Marked; Lymphocytes # (A) 0.7 k/uL (1.0-4.8); Lymphocytes % (A) 18 %; MCH 23.5 pg (25.0-35.0); MCHC 29.3 g/dL (31.0-37.0); MCV 80.2 fL (80.0-100.0); Mean Platelet Volume 9.7; Microcytosis Slight; Monocytes # (A) 0.1 k/uL (0-1.0); Monocytes % (A) 2 %; Neutrophils # (A) 2.8 k/uL (1.3-7.7); Neutrophils % (A) 79 %; Platelet Count 188 k/uL (150-450); Poikilocytosis Slight; RBC 3.88 m/uL (4.30-5.90); RDW 18.9 % (11.5-15.5); WBC 3.6 k/uL (3.8-10.6)
[2020-06-16 07:02] LABS: Calcium 8.9 mg/dL (8.4-10.2); Magnesium 1.6 mg/dL (1.6-2.3); Potassium 4.3 mmol/L (3.5-5.1)
[2020-06-16] MEDS: MIDODRINE 5 MG TAB PO SCH ×3 (08:38→20:54)
[2020-06-16] MEDS: FAMOTIDINE 20 MG TAB PO SCH (08:38)
[2020-06-16] MEDS: ALPRAZolam 0.5 MG TAB PO PRN (08:47)
[2020-06-16] MEDS: LORATADINE 10 MG TAB PO SCH (11:55)
[2020-06-16] MEDS: METOPROLOL SUCCINATE (ER) 50 MG TAB.ER.24H PO SCH (11:55)
--- NOTE | 2020-06-16 12:19 | P.HPIM ---
History of Present Illness Patient given comments of generalized weakness and the urinary incontinence. Patient was started on the Flomax for BPH. Patient does have extensive history. Patient in ER found to have lactic acidosis because of which patient was admitted although patient doesn't have any fever chills patient denied any dysuria, urine analysis will be obtained. Chest x-ray did not show any pneumonia. Patient does have extensive history including history of congestive heart failure EF of around the 20-25% although patient is not in acute ex acerbation patient is found to be in acute renal failure with creatinine of around 3.5 baseline around 1.8. Nephrology was consulted. Patient denied any productive cough. Patient was complaining of generalized weakness. Patient is also comparing of shortness of breath denied any orthopnea proximal nocturnal dyspnea didn't any significant cough does have history of COPD. Review of Systems REVIEW OF SYSTEMS: CONSTITUTIONAL: As mentioned in HPI HEENT: No recent visual problems or hearing problems. Denied any sore throat. CARDIOVASCULAR: No chest pain, orthopnea, PND, no palpitations, no syncope. PULMONARY: no cough, no hemoptysis. GASTROINTESTINAL: No diarrhea, no nausea, no vomiting, no abdominal pain. NEUROLOGICAL: No headaches, no weakness, no numbness. HEMATOLOGICAL: Denies any bleeding or petechiae. GENITOURINARY: Denies any burning micturition, frequency, or urgency. MUSCULOSKELETAL/RHEUMATOLOGICAL: Denies any joint pain, swelling, or any muscle pain. ENDOCRINE: Denies any polyuria or polydipsia. The rest of the 14-point review of systems is negative. Past Medical History Past Medical History: Coronary Artery Disease (CAD), Chest Pain / Angina, Heart Failure, COPD, GERD/Reflux, Hyperlipidemia, Hypertension, Liver Disease, Myocardial Infarction (ME), Osteoarthritis (OA), Pneumonia Additional Past Medical History / Comment(s): 06/15/20 pt states he self caths once in awhile at home Last Myocardial Infarction Date:: 2015 History of Any Multi-Drug Resistant Organisms: None Reported Past Surgical History: Adenoidectomy, Heart Catheterization, Hernia Repair, Tonsillectomy Additional Past Surgical History / Comment(s): COLONOSCOPY,CATARACTS. recent heart cath -has triple vessel disease-no sx as of yet. Past Anesthesia/Blood Transfusion Reactions: No Reported Reaction Date of Last Stent Placement:: 2015 Smoking Status: Current some day smoker - Past Family History Mother Family Medical History: Myocardial Infarction (ME) Additional Family Medical History / Comment(s): Mother had a ME in her 80s and . Brother(s) Family Medical History: CVA/TIA Sister(s) Family Medical History: CVA/TIA Father Family Medical History: No Reported History Additional Family Medical History / Comment(s): Father when pt was young from a drowning. Medications and Allergies Home Medications Medication Instructions Recorded Confirmed Type Omeprazole [PriLOSEC] 20 mg PO BID@0530,17307/19/16 06/15/20 History Baclofen [Lioresal] 10 mg PO BID@0530,172901/31/17 06/15/20 History Atorvastatin Calcium [Lipitor] 80 mg PO HS@172910/30/19 06/15/20 History Cetirizine HCl [Zyrtec] 10 mg PO DAILY@0510/30/19 06/15/20 History Ticagrelor [Brilinta] 90 mg PO BID@0530,172910/30/19 06/15/20 History Tamsulosin [Flomax] 0.4 mg PO DAILY@0530 01/27/20 06/15/20 History Loratadine 10 mg PO DAILY@0530 03/25/20 06/15/20 History Magnesium Oxide [Mag-Ox] 400 mg PO BID@0530,172903/25/20 06/15/20 History Midodrine [ProAmatine] 2.5 mg PO TID 03/25/20 06/15/20 History Furosemide [Lasix] 40 mg PO DAILY@0530 #0 04/02/20 06/15/20 Rx ALPRAZolam [Xanax] 0.5 mg PO BID PRN 06/15/20 06/15/20 History Metoprolol Succinate (ER) [Toprol 50 mg PO DAILY@52906/15/20 06/15/20 History XL] Allergies Allergy/AdvReac Type Severity Reaction Status Date / Time No Known Allergies Allergy Verified 06/15/20 18:32 Physical Exam Vitals: Vital Signs Temp Pulse Pulse Resp BP BP Pulse Ox 06/16/20 08:00 98.1 F 84 22 132/60 97 06/16/20 04:00 95 19 104/75 100 06/16/20 00:00 96 19 98/68 100 06/15/20 22:10 97.7 F 81 20 99/74 100 06/15/20 21:10 81 20 06/15/20 19:49 84 06/15/20 19:25 82 06/15/20 18:52 111/86 06/15/20 18:06 77 18 87/71 100 06/15/20 17:07 77 18 104/78 06/15/20 16:49 97 F L 79 18 85/55 95 Intake and Output 06/15/20 06/16/20 06/16/20 22:59 06:59 14:59 Intake Total 560 Balance 560 Intake: Intake, IV Titration 560 Amount Sodium Chloride 0.9% 1, 560 000 ml @ 80 mls/hr IV . [id number] [facility] Rx#:[id number] Other: Voiding Method Diaper Diaper Diaper Incontinent Incontinent Incontinent # Voids 2 Weight 68.311 kg 68.1 kg PHYSICAL EXAMINATION: GENERAL: The patient is alert and oriented x3, not in any acute distress. Well developed, well nourished. HEENT: Pupils are round and equally reacting to light. EOMI. No scleral icterus. No conjunctival pallor. Normocephalic, atraumatic. No pharyngeal erythema. No thyromegaly. CARDIOVASCULAR: S1 and S2 present. No murmurs, rubs, or gallops. PULMONARY: Chest is clear to auscultation, no wheezing or crackles. ABDOMEN: Soft, nontender, nondistended, normoactive bowel sounds. No palpable organomegaly. MUSCULOSKELETAL: No joint swelling or deformity. EXTREMITIES: No cyanosis, clubbing, or pedal edema. NEUROLOGICAL: Gross neurological examination did not reveal any focal deficits. SKIN: No rashes. Results CBC & Chem 7: 06/16/20 06:28 06/16/20 06:28 Labs: Abnormal Lab Results - Last 24 Hours (Table) 06/15/20 06/15/20 06/15/20 Range/Units 17:17 17:17 17:17 WBC (3.8-10.6) k/uL RBC 4.23 L (4.30-5.90) m/uL Hgb 9.8 L (13.0-17.5) gm/dL Hct 32.9 L (39.0-53.0) % MCV 77.7 L (80.0-100.0) fL MCH 23.1 L (25.0-35.0) pg MCHC 29.8 L (31.0-37.0) g/dL RDW 19.2 H (11.5-15.5) % Lymphocytes # (1.0-4.8) k/uL PT 14.0 H (9.0-12.0) sec INR 1.4 H (<1.2) VBG HCO3 (24-28) mmol/L Carbon Dioxide 19 L (22-30) mmol/L BUN 60 H (9-20) mg/dL Creatinine 3.67 H (0.66-1.25) mg/dL Glucose 120 H (74-99) mg/dL Plasma Lactic Acid Alexey (0.7-2.0) mmol/L Alkaline Phosphatase 152 H (38-126) U/L Troponin I (0.000-0.034) ng/mL 06/15/20 06/15/20 06/15/20 Range/Units 17:17 17:17 18:05 WBC (3.8-10.6) k/uL RBC (4.30-5.90) m/uL Hgb (13.0-17.5) gm/dL Hct (39.0-53.0) % MCV (80.0-100.0) fL MCH (25.0-35.0) pg MCHC (31.0-37.0) g/dL RDW (11.5-15.5) % Lymphocytes # (1.0-4.8) k/uL PT (9.0-12.0) sec INR (<1.2) VBG HCO3 22 L (24-28) mmol/L Carbon Dioxide (22-30) mmol/L BUN (9-20) mg/dL Creatinine (0.66-1.25) mg/dL Glucose (74-99) mg/dL Plasma Lactic Acid Alexey 5.0 H* (0.7-2.0) mmol/L Alkaline Phosphatase (38-126) U/L Troponin I 0.053 H* (0.000-0.034) ng/mL 06/15/20 06/15/20 06/15/20 Range/Units 19:08 20:22 23:19 WBC (3.8-10.6) k/uL RBC (4.30-5.90) m/uL Hgb (13.0-17.5) gm/dL Hct (39.0-53.0) % MCV (80.0-100.0) fL MCH (25.0-35.0) pg MCHC (31.0-37.0) g/dL RDW (11.5-15.5) % Lymphocytes # (1.0-4.8) k/uL PT (9.0-12.0) sec INR (<1.2) VBG HCO3 (24-28) mmol/L Carbon Dioxide (22-30) mmol/L BUN (9-20) mg/dL Creatinine (0.66-1.25) mg/dL Glucose (74-99) mg/dL Plasma Lactic Acid Alexey 3.5 H* 5.5 H* 4.5 H* (0.7-2.0) mmol/L Alkaline Phosphatase (38-126) U/L Troponin I (0.000-0.034) ng/mL 06/16/20 06/16/20 06/16/20 Range/Units 06:28 06:28 06:28 WBC 3.6 L (3.8-10.6) k/uL RBC 3.88 L (4.30-5.90) m/uL Hgb 9.1 L (13.0-17.5) gm/dL Hct 31.1 L (39.0-53.0) % MCV (80.0-100.0) fL MCH 23.5 L (25.0-35.0) pg MCHC 29.3 L (31.0-37.0) g/dL RDW 18.9 H (11.5-15.5) % Lymphocytes # 0.7 L (1.0-4.8) k/uL PT (9.0-12.0) sec INR (<1.2) VBG HCO3 (24-28) mmol/L Carbon Dioxide 17 L (22-30) mmol/L BUN 64 H (9-20) mg/dL Creatinine 3.79 H (0.66-1.25) mg/dL Glucose 147 H (74-99) mg/dL Plasma Lactic Acid Alexey 4.0 H* (0.7-2.0) mmol/L Alkaline Phosphatase (38-126) U/L Troponin I (0.000-0.034) ng/mL 06/16/20 Range/Units 09:10 WBC (3.8-10.6) k/uL RBC (4.30-5.90) m/uL Hgb (13.0-17.5) gm/dL Hct (39.0-53.0) % MCV (80.0-100.0) fL MCH (25.0-35.0) pg MCHC (31.0-37.0) g/dL RDW (11.5-15.5) % Lymphocytes # (1.0-4.8) k/uL PT (9.0-12.0) sec INR (<1.2) VBG HCO3 (24-28) mmol/L Carbon Dioxide (22-30) mmol/L BUN (9-20) mg/dL Creatinine (0.66-1.25) mg/dL Glucose (74-99) mg/dL Plasma Lactic Acid Alexey 4.6 H* (0.7-2.0) mmol/L Alkaline Phosphatase (38-126) U/L Troponin I (0.000-0.034) ng/mL Thrombosis Risk Factor Assmnt - Choose All That Apply Any of the Below Risk Factors Present?: Yes Each Factor Represents 1 point: Abnormal pulmonary function (COPD) Each Risk Factor Represents 3 Points: Age 75 years or older Thrombosis Risk Factor Assessment Total Risk Factor Score: 4 Thrombosis Risk Factor Assessment Level: Moderate Risk Assessment and Plan Plan: -Generalized weakness can be related to acute renal failure -Urinary incontinence secondary to Flomax which is being held and patient declined to take this medication. -Acute renal failure: Patient will be evaluated by nephrology will rule out obstructive uropathy can be prerenal azotemia. 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 -Shortness of breath may be secondary to mild COPD exacerbation patient although not doesn't have any significant wheezing patient will be started and his surgeon next -Congestive heart failure chronic systolic dysfunction EF of around 20-25% patient is presently not in acute exacerbation patient is actually receiving IV fluids -Lactic is doses probably secondary to intravascular depletion diuretics are be ing held and patient is on IV fluids -Severe pulmonary hypertension -Elevated BNP patient has chronically elevated BNP around this level -Generalized weakness: Patient will be evaluated by physical therapy and occupational therapy -COPD with possible mild acute exacerbation [place]-hypertension next and- hyperlipidemia -Atrial fibrillation proximal presently rate controlled patient is presently not on any anticoagulation not on anti-coagulation at this -Anemia of chronic kidney disease -Coronary artery disease -Due to prophylaxis with subcutaneous heparin
--- NOTE | 2020-06-16 12:56 | P.CNPUL ---
History of Present Illness Consult date: 06/16/20 Reason for consult: dyspnea, COPD History of present illness: This is a 74-year-old male patient with an extensive cardiac disease and coronary artery disease and CHF with impaired LV function with an ejection fraction of 20-25% home of asked to see because of shortness of breath. The patient is known to have COPD which is mild and based on previous spirometry from 2016 his FEV1 was in order of 80% of predicted is not oxygen dependent. He has chronic kidney disease. His baseline creatinine is around 1.8. He has prostate enlargement and the patient does self-catheterization at home. Recently he has been noted to have urinary incontinence and dribbling without any dysuria or any change in the color or characteristics of urine. No h ematuria. He has noted some change in the urine output and for that reason he decided to come in. In the emergency did complain of some shortness of breath. He was also complaining of generalized weakness. It was noted that his creatinine was up to 3.5. Based on that the patient was admitted to the hospital. He is currently being given IV fluids with normal saline at the rate of 80 mL an hour. He has no fever. No chills. No hemoptysis no pleurisy. His chest x-ray showing cardiomegaly without any acute abnormalities. CAT scan of the brain was done in the ED and the patient has cerebral atrophy. No acute abnormalities. The patient also has no edema in the lower extremities. His r oom air pulse ox was 96%. He was placed on 2 L of oxygen by nasal cannula. Review of Systems Constitutional: Reports fatigue, Reports weakness Eyes: denies as per HPI, denies blurred vision, denies bulging eye, denies decreased vision, denies diplopia, denies discharge, denies dry eye, denies irritation, denies itching, denies pain, denies photophobia, denies loss of peripheral vision, denies loss of vision, denies tunnel vision/blind spots Ears: deny: decreased hearing, ear discharge, earache, tinnitus Ears, nose, mouth and throat: Denies headache, Denies sore throat Breasts: absent: as per HPI, gynecomastia Cardiovascular: Reports decreased exercise tolerance, Reports dyspnea on exertion Respiratory: Reports dyspnea Gastrointestinal: Reports as per HPI Genitourinary: Reports as per HPI (Urinary incontinence) Musculoskeletal: Reports as per HPI, Reports gait dysfunction Musculoskeletal: absent: ankle pain, ankle stiffness, ankle swelling Integumentary: Reports as per HPI Neurological: Reports as per HPI, Reports weakness Psychiatric: Reports as per HPI Endocrine: Reports as per HPI Hematologic/Lymphatic: Reports as per HPI Allergic/Immunologic: Reports as per HPI Past Medical History Past Medical History: Coronary Artery Disease (CAD), Chest Pain / Angina, Heart Failure, COPD, GERD/Reflux, Hyperlipidemia, Hypertension, Liver Disease, Myocardial Infarction (AR), Osteoarthritis (OA), Pneumonia Additional Past Medical History / Comment(s): 06/15/20 pt states he self caths once in awhile at homeCoronary artery disease with previous stenting of the LAD. The patient was investigated and declined for bypass surgery in the past, CHF with an ejection fraction of 20-25%, chronic stage IV kidney disease, BPH, secondary pulmonary hypertension, chronic atrial fibrillation, chronic anemia, COPD, chronic obstructive uropathy secondary to BPH and the patient does self-catheterization at home, osteoarthritis, generalized weakness and episodes of falls Last Myocardial Infarction Date:: 2015 History of Any Multi-Drug Resistant Organisms: None Reported Past Surgical History: Adenoidectomy, Heart Catheterization, Hernia Repair, Tonsillectomy Additional Past Surgical History / Comment(s): COLONOSCOPY,CATARACTS. recent heart cath -has triple vessel disease-no sx as of yet. Past Anesthesia/Blood Transfusion Reactions: No Reported Reaction Date of Last Stent Placement:: 2015 Smoking Status: Current some day smoker - Past Family History Mother Family Medical History: Myocardial Infarction (AR) Additional Family Medical History / Comment(s): Mother had a AR in her 80s and . Brother(s) Family Medical History: CVA/TIA Sister(s) Family Medical History: CVA/TIA Father Family Medical History: No Reported History Additional Family Medical History / Comment(s): Father when pt was young from a drowning. Medications and Allergies Home Medications Medication Instructions Recorded Confirmed Type Omeprazole [PriLOSEC] 20 mg PO BID@0530,1730 07/19/16 06/15/20 History Baclofen [Lioresal] 10 mg PO BID@0530,1730 01/31/17 06/15/20 History Atorvastatin Calcium [Lipitor] 80 mg PO HS@1730 10/30/19 06/15/20 History Cetirizine HCl [Zyrtec] 10 mg PO DAILY@52910/30/19 06/15/20 History Ticagrelor [Brilinta] 90 mg PO BID@529,172910/30/19 06/15/20 History Tamsulosin [Flomax] 0.4 mg PO DAILY@52901/27/20 06/15/20 History Loratadine 10 mg PO DAILY@52903/25/20 06/15/20 History Magnesium Oxide [Mag-Ox] 400 mg PO BID@529,172903/25/20 06/15/20 History Midodrine [ProAmatine] 2.5 mg PO TID 03/25/20 06/15/20 History Furosemide [Lasix] 40 mg PO DAILY@529 #0 04/02/20 06/15/20 Rx ALPRAZolam [Xanax] 0.5 mg PO BID PRN 06/15/20 06/15/20 History Metoprolol Succinate (ER) [Toprol 50 mg PO DAILY@52906/15/20 06/15/20 History XL] Allergies Allergy/AdvReac Type Severity Reaction Status Date / Time No Known Allergies Allergy Verified 06/15/20 18:32 Physical Exam Vitals: Vital Signs Temp Pulse Pulse Resp BP BP Pulse Ox 06/16/20 12:00 97.7 F 79 20 110/57 96 06/16/20 08:00 98.1 F 84 22 132/60 97 06/16/20 04:00 95 19 104/75 100 06/16/20 00:00 96 19 98/68 100 06/15/20 22:10 97.7 F 81 20 99/74 100 06/15/20 21:10 81 20 06/15/20 19:49 84 06/15/20 19:25 82 06/15/20 18:52 111/86 06/15/20 18:06 77 18 87/71 100 06/15/20 17:07 77 18 104/78 06/15/20 16:49 97 F L 79 18 85/55 95 Intake and Output 06/15/20 06/16/20 06/16/20 22:59 06:59 14:59 Intake Total 560 Balance 560 Intake: Intake, IV Titration 560 Amount Sodium Chloride 0.9% 1, 560 000 ml @ 80 mls/hr IV . [id number] [facility] Rx#:[id number] Other: Voiding Method Diaper Diaper Diaper Incontinent Incontinent Incontinent # Voids 2 2 Weight 68.311 kg 68.1 kg Gen. appearance, comfortable, and the patient currently is in nonacute distress Head exam was generally normal. There was no scleral icterus or corneal arcus. Mucous membranes were moist. Neck was supple and without jugular venous distension, thyromegaly, or carotid bruits. Carotids were easily palpable bilaterally. There was no adenopathy. Lung sounds are diminished otherwise clear. No crackles or wheezes or rhonchi. heart sounds are regular and there is no S3 gallop. No cervical murmurs appreciated. Abdominal exam revealed normal bowel sounds. The abdomen was soft, non-tender, and without masses, organomegaly, or appreciable enlargement of the abdominal aorta. Examination of the extremities revealed easily palpable radial, femoral and pedal pulses. There was no cyanosis, clubbing or edema. Examination of the skin revealed no evidence of significant rashes, suspicious appearing nevi or other concerning lesions. Neurologically, the patient is awake and alert and the patient does not have any focal neurological deficit. Cranial nerves are essentially intact. Results - Laboratory Findings CBC and BMP: 06/16/20 06:28 06/16/20 06:28 PT/INR, D-dimer PT 14.0 sec (9.0-12.0) H 06/15/20 17:17 INR 1.4 (<1.2) H 06/15/20 17:17 Abnormal lab findings: Abnormal Labs 06/15/20 06/15/20 06/15/20 17:17 17:17 17:17 WBC RBC 4.23 L Hgb 9.8 L Hct 32.9 L MCV 77.7 L MCH 23.1 L MCHC 29.8 L RDW 19.2 H Lymphocytes # PT 14.0 H INR 1.4 H VBG HCO3 Carbon Dioxide 19 L BUN 60 H Creatinine 3.67 H Glucose 120 H Plasma Lactic Acid Alexey Alkaline Phosphatase 152 H Troponin I 06/15/20 06/15/20 06/15/20 17:17 17:17 18:05 WBC RBC Hgb Hct MCV MCH MCHC RDW Lymphocytes # PT INR VBG HCO3 22 L Carbon Dioxide BUN Creatinine Glucose Plasma Lactic Acid Alexey 5.0 H* Alkaline Phosphatase Troponin I 0.053 H* 06/15/20 06/15/20 06/15/20 19:08 20:22 23:19 WBC RBC Hgb Hct MCV MCH MCHC RDW Lymphocytes # PT INR VBG HCO3 Carbon Dioxide BUN Creatinine Glucose Plasma Lactic Acid Alexey 3.5 H* 5.5 H* 4.5 H* Alkaline Phosphatase Troponin I 06/16/20 06/16/20 06/16/20 06:28 06:28 06:28 WBC 3.6 L RBC 3.88 L Hgb 9.1 L Hct 31.1 L MCV MCH 23.5 L MCHC 29.3 L RDW 18.9 H Lymphocytes # 0.7 L PT INR VBG HCO3 Carbon Dioxide 17 L BUN 64 H Creatinine 3.79 H Glucose 147 H Plasma Lactic Acid Alexey 4.0 H* Alkaline Phosphatase Troponin I 06/16/20 09:10 WBC RBC Hgb Hct MCV MCH MCHC RDW Lymphocytes # PT INR VBG HCO3 Carbon Dioxide BUN Creatinine Glucose Plasma Lactic Acid Alexey 4.6 H* Alkaline Phosphatase Troponin I - Diagnostic Findings Chest x-ray: image reviewed Assessment and Plan Plan: 1 chronic dyspnea, multifactorial without any decompensated take factor this point in time. The patient has chronic CAD/CHF/COPD and various other comorbidities contributing to his shortness of breath. No single decompensating fact it identified at this point in time 2 acute on chronic kidney disease. Baseline renal function is consistent with stage IV kidney disease/failure. 3 CHF with an ejection fraction of 20-25% secondary pulmonary hypertension 4 coronary artery disease with extensive multivessel disease with previous stenting of the LAD. The patient was investigated and declined for bypass surgery back in 2016 due to comorbidities. 5 chronic atrial fibrillation, not on anticoagulants 6 anemia of chronic disease 7 lactic acidosis 8 BPH and chronic obstructive uropathy. The patient performs self- catheterization. Patient also has chronic kidney disease stage 3-4 disease 9 degenerative disc disease involving the lumbar spine 10 chronic cerebral atrophy and along with a component of dementia 11 hyperlipidemia 12 hypertension 13 history of recurrent falls and gait dysfunction secondary to comorbidities Plan Check amount of urine retained by bladder scan Palomares catheter insertion Hold diuretics for now Nephrology consultation Overall pulmonary status is stable and the patient has chronic dyspnea related to his comorbidities. Agree on the rest of the management.
[2020-06-16] MEDS: SODIUM CHLORIDE 0.9% 1,000 ML IV SCH ×2 (14:59→20:59)
[2020-06-16 16:02] LABS: Amorphous Sediment,Urine Occasional /hpf; Appearance,Urine Clear (Clear); Bacteria,Urine Occasional /hpf; Bilirubin,Urine Negative (Negative); Blood,Urine Negative (Negative); Color,Urine Yellow; Glucose,Urine (UA) Negative (Negative); Hyaline Casts,Urine 119 /lpf (0-2); Ketones,Urine 1+ (Negative); Leukocyte Esterase,Urine Small (Negative); Mucus,Urine Rare /hpf; Nitrite,Urine Negative (Negative); PH, Urine 5.5 (5.0-8.0); Protein,Urine 1+ (Negative); RBC,Urine 1 /hpf (0-5); Specific Gravity,Urine 1.016 (1.001-1.035); Urobilinogen,Urine <2.0 mg/dL (<2.0); WBC,Urine 13 /hpf (0-5)
[2020-06-16] MEDS: ATORVASTATIN 80 MG TAB PO SCH (18:28)
[2020-06-16] MEDS: PANTOPRAZOLE 40 MG TABLET PO SCH (18:28)
[2020-06-16] MEDS: TICAGRELOR 90 MG TAB PO SCH (18:28)
--- NOTE | 2020-06-16 18:35 | CONS ---
CONSULTATION REASON FOR CONSULT: HISTORY OF PRESENT ILLNESS: Patient is a 74-year-old male with history of CHF, chronic kidney disease with baseline creatinine around 1.4-1.6 mg/dL secondary to nephrosclerosis. No evidence of proteinuria on UA done in March of 2020. The patient has had a previous history of urine retention, obstructive uropathy and has had done straight catheterization at home previously. The patient states he was recently started on Flomax and has had multiple episodes of incontinence. Reason for admission was generalized weakness and urinary incontinence. No complaints of cough or chest pain. No significant shortness of breath. Patient does have a history of CHF with ejection fraction 20-25%. His serum creatinine this admission was noted to be 3.79 mg/dL. Urine output is currently not accurately charted. Blood pressure is not low currently. However, yesterday systolic blood pressure was 99 and 98 mmHg. At home patient was not on any DARION inhibitors or NSAIDs. He is maintained on midodrine for chronic low blood pressure. PAST MEDICAL HISTORY: CKD stage 3 with multiple episodes of acute kidney injury on previous admissions, history of cardiomyopathy, CHF, systolic, coronary artery disease, COPD, hypertension, chronic liver disease, history of DC, osteoarthritis, hyperlipidemia, gastroesophageal reflux disease. PAST SURGICAL HISTORY: Adenoidectomy, cardiac catheterization, hernia repair, tonsillectomy, colonoscopy, cataract surgery. SOCIAL HISTORY: Positive for smoking. No history of drug abuse or alcohol. MEDICATIONS PRIOR TO ADMISSION: Included metoprolol, magnesium, loratadine, Lasix Zyrtec, Lipitor, Xanax, midodrine, Prilosec, Flomax, Brilinta. REVIEW OF SYSTEMS: As per HPI. Other systems negative. EXAMINATION: Patient is comfortable, awake. He is not in any acute distress. Blood pressure 110/57, heart rate 79 per minute. He is afebrile. Examination of the heart S1, S2. Examination of the lungs, bilateral breath sounds are heard. Decreased breath sounds at bases. Abdomen is soft, nontender. Examination of lower extremities shows no evidence of edema. [employer] exam grossly intact. LAB: Show sodium of 141, potassium 4.3, chloride 105, CO2 17, BUN 64, serum creatinine 3.79. Lactic acid elevated at 4.6 and 5.2. ASSESSMENT: 1. Acute kidney injury, rule out obstructive uropathy. There may be a component of acute kidney injury associated with hypotension as well. No nephrotoxic agents on board currently. Check postvoid residual. Check urinalysis. Continue IV fluids as patient is not in CHF and repeat labs in a.m. Continue with the midodrine as well. 2. Chronic hypotension maintained on midodrine. 3. Chronic kidney disease stage 3 secondary to nephrosclerosis with possible underlying obstructive uropathy which is chronic, as patient has had previous mild right hydronephrosis. 4. Chronic mild right hydronephrosis. Proceed with urology consult if renal function does not improve or if the hydronephrosis is worse. 5. Cardiomyopathy, ejection fraction 20-25%. 6. History of congestive heart failure currently not in congestive heart failure. JOSHUA: Check postvoid residual. Check urinalysis. Continue IV fluids. If renal function does not improve, we will repeat another ultrasound of the kidneys and consult Urology. Thank you for this consultation. Will continue to follow the patient with you during his hospitalization. MMODL / IJN: [id number] /
[2020-06-17] MEDS: ALPRAZolam 0.25 MG TAB PO PRN ×2 (02:39→20:26)
[2020-06-17] MEDS: METOPROLOL SUCCINATE (ER) 50 MG TAB.ER.24H PO SCH (05:21)
[2020-06-17] MEDS: TICAGRELOR 90 MG TAB PO SCH ×2 (05:21→18:11)
[2020-06-17] MEDS: LORATADINE 10 MG TAB PO SCH (05:21)
[2020-06-17] MEDS: PANTOPRAZOLE 40 MG TABLET PO SCH ×2 (05:21→18:11)
[2020-06-17] MEDS ORDERED: NON FORMULARY DRUG (Cetirizine Hcl [Zyrtec] 10 MG Tablet) PO SCH (05:30)
--- NOTE | 2020-06-17 10:55 | P.PN ---
Subjective She is admitted for generalized weakness. Patient is found to have acute renal failure patient was receiving IV fluids. Patient does have a cut his heart failure EF of around 20-25%. Patient declined to take any medications declined any blood tests. Patient was on 80 mL of normal saline but when I saw his own receiving 40 mL still complaining of shortness of breath which appeared to be chronic clinically still doesn't appear to be in heart failure exacerbation I ordered a chest x-ray after extensive counseling and spending quite a bit of time with the patient counseling her the patient patient is agreeable to get the blood draw. Patient's serum creatinine was around 3.5 yesterday. Nothing available from today Constitutional: Does have fatigue Cardio vascular: denied any chest pain, palpitations Gastrointestinal denied any nausea vomiting Pulmonary: Orly for shortness of breath Neurologic denied any new focal deficits All inpatient medications were reviewed and appropriate changes in these medications as dictated in the interval history and assessment and plan. Objective - Vital Signs Vital signs: Vital Signs Temp 97.0 F L 06/17/20 03:59 Pulse 81 06/17/20 03:59 Resp 18 06/17/20 03:59 BP 100/69 06/17/20 03:59 Pulse Ox 97 06/17/20 03:59 Intake & Output 06/16/20 06/17/20 06/17/20 18:59 06:59 18:59 Intake Total 360 560 Output Total 390 Balance 360 170 Weight 56.5 kg Intake: Intake, IV Titration 560 Amount Sodium Chloride 0.9% 1, 560 000 ml @ 80 mls/hr IV . [id number] [facility] Rx#:[id number] Oral 360 Output: Urine 390 Other: Voiding Method Diaper Indwelling Catheter Incontinent # Voids 1 1 - Exam PHYSICAL EXAMINATION: GENERAL: The patient is alert and oriented x3, not in any acute distress. Well developed, well nourished. HEENT: Pupils are round and equally reacting to light. EOMI. No scleral icterus. No conjunctival pallor. Normocephalic, atraumatic. No pharyngeal erythema. No thyromegaly. CARDIOVASCULAR: S1 and S2 present. No murmurs, rubs, or gallops. PULMONARY: Chest is clear to auscultation, no wheezing or crackles. ABDOMEN: Soft, nontender, nondistended, normoactive bowel sounds. No palpable organomegaly. MUSCULOSKELETAL: No joint swelling or deformity. EXTREMITIES: No cyanosis, clubbing, or pedal edema. NEUROLOGICAL: Gross neurological examination did not reveal any focal deficits. SKIN: No rashes. - Labs CBC & Chem 7: 06/16/20 06:28 06/16/20 06:28 Labs: Abnormal Lab Results - Last 24 Hours (Table) 06/16/20 06/16/20 06/16/20 Range/Units 12:12 13:00 15:46 Plasma Lactic Acid Alexey 5.2 H* 7.0 H* (0.7-2.0) mmol/L Urine Protein 1+ H (Negative) Urine Ketones 1+ H (Negative) Ur Leukocyte Esterase Small H (Negative) Urine WBC 13 H (0-5) /hpf Amorphous Sediment Occasional H (None) /hpf Urine Bacteria Occasional H (None) /hpf Hyaline Casts 119 H (0-2) /lpf Urine Mucus Rare H (None) /hpf 06/16/20 06/16/20 Range/Units 18:47 21:57 Plasma Lactic Acid Alexey 5.8 H* 5.9 H* (0.7-2.0) mmol/L Urine Protein (Negative) Urine Ketones (Negative) Ur Leukocyte Esterase (Negative) Urine WBC (0-5) /hpf Amorphous Sediment (None) /hpf Urine Bacteria (None) /hpf Hyaline Casts (0-2) /lpf Urine Mucus (None) /hpf Microbiology - Last 24 Hours (Table) 06/16/20 13:00 Urine Culture - Preliminary Urine,Clean Catch Assessment and Plan Plan: -Generalized weakness can be related to acute renal failure, patient although does have chronic weakness -Urinary incontinence secondary to Flomax which is being held and patient declined to take this medication. -Acute renal failure: Patient will be evaluated by nephrology will rule out obstructive uropathy can be prerenal azotemia. 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 -Shortness of breath may be secondary to mild COPD exacerbation patient although not doesn't have any significant wheezing patient will be started and his surgeon next -Congestive heart failure chronic systolic dysfunction EF of around 20-25% patient is presently not in acute exacerbation patient is actually receiving IV fluids -Lactic is doses probably secondary to intravascular depletion diuretics are being held and patient is on IV fluids patient can use to have lactic acidosis with serum lactate of around 5 -Severe pulmonary hypertension -Elevated BNP patient has chronically elevated BNP around this level -Generalized weakness: Patient will be evaluated by physical therapy and occ upational therapy -COPD with possible mild acute exacerbation -hypertension -hyperlipidemia -Atrial fibrillation proximal presently rate controlled patient is presently not on any anticoagulation not on anti-coagulation at this -Anemia of chronic kidney disease -Coronary artery disease -Due to prophylaxis with subcutaneous heparin
[2020-06-17 11:01] LABS: Anisocytosis Slight; Basophils % (A) 0 %; Eosinophils % (A) 0 %; HCT 32.2 % (39.0-53.0); HGB 9.2 gm/dL (13.0-17.5); Hypochromasia Marked; Lymphocytes # (A) 1.4 k/uL (1.0-4.8); Lymphocytes % (A) 8 %; MCH 23.1 pg (25.0-35.0); MCHC 28.7 g/dL (31.0-37.0); MCV 80.6 fL (80.0-100.0); Mean Platelet Volume 10.5; Microcytosis Slight; Monocytes # (A) 0.6 k/uL (0-1.0); Monocytes % (A) 4 %; Neutrophils # (A) 14.6 k/uL (1.3-7.7); Neutrophils % (A) 87 %; Platelet Count 187 k/uL (150-450); Poikilocytosis Slight; RBC 3.99 m/uL (4.30-5.90); WBC 16.8 k/uL (3.8-10.6)
[2020-06-17] MEDS: SODIUM CHLORIDE 0.9% 1,000 ML IV SCH ×2 (11:03→20:28)
[2020-06-17] MEDS: MIDODRINE 5 MG TAB PO SCH ×3 (11:04→19:19)
[2020-06-17] MEDS: FAMOTIDINE 20 MG TAB PO SCH ×2 (11:04→11:41)
[2020-06-17 11:07] LABS: Calcium 8.5 mg/dL (8.4-10.2)
--- NOTE | 2020-06-17 11:57 | XR ---
EXAMINATION TYPE: XR chest 1V DATE OF EXAM: 06/17/2020 COMPARISON: Prior chest x-ray 06/15/2020 HISTORY: Shortness of breath TECHNIQUE: Single frontal view of the chest is obtained. FINDINGS: The heart remains enlarged. No evident airspace disease, pneumothorax, or pleural effusion . There are overlying leads and tubing. Mild prominence of interstitium is again seen. Aorta is dense . Pulmonary vascularity and brennen are not changed. IMPRESSION: Stable cardiomegaly. Suspect mild interstitial changes within the lungs.
--- NOTE | 2020-06-17 12:40 | P.PN ---
Subjective Progress Note Date: 06/17/20 Principal diagnosis: Chronic dyspnea, multifactorial, acute on chronic kidney disease This is a 74-year-old male patient with an extensive cardiac disease and coronary artery disease and CHF with impaired LV function with an ejection fraction of 20-25% home of asked to see because of shortness of breath. The patient is known to have COPD which is mild and based on previous spirometry from 2016 his FEV1 was in order of 80% of predicted is not oxygen dependent. He has chronic kidney disease. His baseline creatinine is around 1.8. He has prostate enlargement and the patient does self-catheterization at home. Recently he has been noted to have urinary incontinence and dribbling without any dysuria or any change in the color or characteristics of urine. No hematuria. He has noted some change in the urine output and for that reason he decided to come in. In the emergency did complain of some shortness of breath. He was also complaining of generalized weakness. It was noted that his creatinine was up to 3.5. Based on that the patient was admitted to the [facility]. He is currently being given IV fluids with normal saline at the rate of 80 mL an hour. He has no fever. No chills. No hemoptysis no pleurisy. His chest x-ray showing cardiomegaly without any acute abnormalities. CAT scan of the brain was done in the ED and the patient has cerebral atrophy. No acute abnormalities. The patient also has no edema in the lower extremities. His room air pulse ox was 96%. He was placed on 2 L of oxygen by nasal cannula. On 06/17/2020 patient seen in follow-up on selective care unit, he is awake and alert, in no acute distress, he states he still short of breath, but does not appear to be in any acute respiratory distress, he remains on 2 L of oxygen the pulse ox of 97-100%. No fever or chills, blood pressure is 100/69, blood pressure has been stable over last 24 hours nevertheless patient's lactic acid remains elevated, was 5.9 last night, patient continues on gentle IV hydration with 0.9 normal saline at a rate of 80 ML per hour, this morning lactic acid is 3.7, sodium is 1:30, potassium is 5.0, chloride is 102, CO2 17, BUN of 86, creatinine is 4.76. Yesterday we had a nurse place indwelling catheter, Palomares catheter remains in place, urinalysis showed 1+ ketones, small amount of leuk trase, 13 of white blood cells, urine culture was sent and is pending at this time. Renal profile has been worsening, nephrology consultation has been obtained, patient remains on midodrine for chronic hypotension Objective - Vital Signs Vital signs: Vital Signs Temp 97.0 F L 06/17/20 03:59 Pulse 81 06/17/20 03:59 Resp 18 06/17/20 03:59 BP 100/69 06/17/20 03:59 Pulse Ox 97 06/17/20 03:59 Intake & Output 06/16/20 06/17/20 06/17/20 18:59 06:59 18:59 Intake Total 360 560 Output Total 390 Balance 360 170 Weight 56.5 kg Intake: Intake, IV Titration 560 Amount Sodium Chloride 0.9% 1, 560 000 ml @ 80 mls/hr IV . [id number] [facility] Rx#:[id number] Oral 360 Output: Urine 390 Other: Voiding Method Diaper Indwelling Catheter Incontinent # Voids 1 1 - Exam GENERAL EXAM: Alert, very pleasant, 74-year-old white male, on 2 L of oxygen, with pulse ox of 97%, mildly dyspneic with exertion, comfortable in no apparent distress. HEAD: Normocephalic/atraumatic. EYES: Normal reaction of pupils, equal size. Conjunctiva pink, sclera white. NOSE: Clear with pink turbinates. THROAT: No erythema or exudates. NECK: No masses, no JVD, no thyroid enlargement, no adenopathy. CHEST: No chest wall deformity. Symmetrical expansion. LUNGS: Equal air entry with no crackles, wheeze, rhonchi or dullness. CVS: Regular rate and rhythm, normal S1 and S2, no gallops, no murmurs, no rubs ABDOMEN: Soft, nontender. No hepatosplenomegaly, normal bowel sounds, no guarding or rigidity. EXTREMITIES: No clubbing, no edema, no cyanosis, 2+ pulses and upper and lower extremities. MUSCULOSKELETAL: Muscle strength and tone normal. SPINE: No scoliosis or deformity SKIN: No rashes CENTRAL NERVOUS SYSTEM: Alert and oriented -3. No focal deficits, tone is normal in all 4 extremities. PSYCHIATRIC: Alert and oriented -3. Appropriate affect. Intact judgment and insight. - Labs CBC & Chem 7: 06/17/20 10:24 06/17/20 10:24 Labs: Abnormal Lab Results - Last 24 Hours (Table) 06/16/20 06/16/20 06/16/20 Range/Units 12:12 13:00 15:46 WBC (3.8-10.6) k/uL RBC (4.30-5.90) m/uL Hgb (13.0-17.5) gm/dL Hct (39.0-53.0) % MCH (25.0-35.0) pg MCHC (31.0-37.0) g/dL RDW (11.5-15.5) % Neutrophils # (1.3-7.7) k/uL Carbon Dioxide (22-30) mmol/L BUN (9-20) mg/dL Creatinine (0.66-1.25) mg/dL Plasma Lactic Acid Alexey 5.2 H* 7.0 H* (0.7-2.0) mmol/L Urine Protein 1+ H (Negative) Urine Ketones 1+ H (Negative) Ur Leukocyte Esterase Small H (Negative) Urine WBC 13 H (0-5) /hpf Amorphous Sediment Occasional H (None) /hpf Urine Bacteria Occasional H (None) /hpf Hyaline Casts 119 H (0-2) /lpf Urine Mucus Rare H (None) /hpf 06/16/20 06/16/20 06/17/20 Range/Units 18:47 21:57 10:24 WBC (3.8-10.6) k/uL RBC (4.30-5.90) m/uL Hgb (13.0-17.5) gm/dL Hct (39.0-53.0) % MCH (25.0-35.0) pg MCHC (31.0-37.0) g/dL RDW (11.5-15.5) % Neutrophils # (1.3-7.7) k/uL Carbon Dioxide (22-30) mmol/L BUN (9-20) mg/dL Creatinine (0.66-1.25) mg/dL Plasma Lactic Acid Alexey 5.8 H* 5.9 H* 3.7 H* (0.7-2.0) mmol/L Urine Protein (Negative) Urine Ketones (Negative) Ur Leukocyte Esterase (Negative) Urine WBC (0-5) /hpf Amorphous Sediment (None) /hpf Urine Bacteria (None) /hpf Hyaline Casts (0-2) /lpf Urine Mucus (None) /hpf 06/17/20 06/17/20 Range/Units 10:24 10:24 WBC 16.8 H (3.8-10.6) k/uL RBC 3.99 L (4.30-5.90) m/uL Hgb 9.2 L (13.0-17.5) gm/dL Hct 32.2 L (39.0-53.0) % MCH 23.1 L (25.0-35.0) pg MCHC 28.7 L (31.0-37.0) g/dL RDW 19.0 H (11.5-15.5) % Neutrophils # 14.6 H (1.3-7.7) k/uL Carbon Dioxide 17 L (22-30) mmol/L BUN 86 H (9-20) mg/dL Creatinine 4.76 H (0.66-1.25) mg/dL Plasma Lactic Acid Alexey (0.7-2.0) mmol/L Urine Protein (Negative) Urine Ketones (Negative) Ur Leukocyte Esterase (Negative) Urine WBC (0-5) /hpf Amorphous Sediment (None) /hpf Urine Bacteria (None) /hpf Hyaline Casts (0-2) /lpf Urine Mucus (None) /hpf Microbiology - Last 24 Hours (Table) 06/16/20 13:00 Urine Culture - Preliminary Urine,Clean Catch Assessment and Plan Plan: Assessment: 1 chronic dyspnea, multifactorial without any decompensated take factor this point in time. The patient has chronic CAD/CHF/COPD and various other comorbidities contributing to his shortness of breath. No single decompensating fact it identified at this point in time 2 acute on chronic kidney disease. Baseline renal function is consistent with stage IV kidney disease/failure. 3 CHF with an ejection fraction of 20-25% secondary pulmonary hypertension 4 coronary artery disease with extensive multivessel disease with previous stenting of the LAD. The patient was investigated and declined for bypass surgery back in 2016 due to comorbidities. 5 chronic atrial fibrillation, not on anticoagulants 6 anemia of chronic disease 7 lactic acidosis likely related to cardiomyopathy 8 BPH and chronic obstructive uropathy. The patient performs self- catheterization. Patient also has chronic kidney disease stage 3-4 disease 9 degenerative disc disease involving the lumbar spine 10 chronic cerebral atrophy and along with a component of dementia 11 hyperlipidemia 12 hypertension 13 history of recurrent falls and gait dysfunction secondary to comorbidities Plan: Continue current medical treatment, lactic acid is coming down, it is possibly related to cardiomyopathy, patient has had no fever or chills, no altered mentation, today's chest x-ray has been reviewed showing mild interstitial changes, oxygenation has been stable. No complaints of chest pain. Follow-up blood work in the morning including electrolytes and renal profile, patient continues on gentle IV hydration, lactic acidosis has improved some with IV hydration. We'll continue to follow I performed a history & physical examination of the patient and discussed their management with my nurse practitioner, Brittany Hester. I reviewed the nurse practitioner's note and agree with the documented findings and plan of care. Lung sounds are positive for diminished breath sounds Time with Patient: Less than 30
--- NOTE | 2020-06-17 17:52 | PN ---
PROGRESS NOTE Patient is seen for followup for acute kidney injury on top of chronic kidney disease. The patient's serum creatinine has increased to 4.76 today. A Palomares catheter has been placed. Yesterday patient did not have significant urine in the bladder. A 24-hour urine output is only documented at 390. However, I believe this is not accurate. Patient's blood pressure remains on the lower side, currently with systolic around 117 to 100 mmHg. Patient is complaining of pain in the abdominal area. He denies any shortness of breath or chest pains. On examination today, blood pressure this morning was 117/65, heart rate 88 per minute. He is afebrile. EXAMINATION OF THE HEART: S1 and S2. EXAMINATION OF LUNGS: Bilateral breath sounds are heard. Decreased breath sounds at bases. ABDOMEN: Soft, non-tender. Examination of lower extremities shows no significant edema. 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 Labs show sodium of 138, potassium 5.0, chloride 102, CO2 17, BUN 86, serum creatinine 4.76, hemoglobin 9.2 g/dL. Lactic acid 3.7 from 5.9. ASSESSMENT: 1. Acute kidney injury, mostly associated with hypotension and hypoperfusion, currently oliguric if the urine output is accurate. A Palomares catheter has been placed. I will continue with the IV fluids. Increase the midodrine to 10 mg t.i.d., as blood pressure remains low. There are no nephrotoxic agents on board at this time. Repeat labs in a.m. 2. History of congestive heart failure, cardiomyopathy, ejection fraction 20% to 25%. 3. Previous mild right hydronephrosis which appears to be chronic. Will repeat an ultrasound of the abdomen and the kidneys. 4. Chronic kidney disease, stage 3, secondary to nephrosclerosis with possible underlying obstructive uropathy which is mild and chronic. I will repeat another ultrasound. PLAN: Increase midodrine. Check ultrasound of the kidneys. Continue IV fluids. Repeat labs in a.m. and continue to avoid nephrotoxic agents. MMODL / IJN: [id number] /
[2020-06-17] MEDS: ATORVASTATIN 80 MG TAB PO SCH (18:11)
--- NOTE | 2020-06-17 20:43 | US ---
EXAMINATION TYPE: US kidneys/renal and bladder DATE OF EXAM: 06/17/2020 COMPARISON: US, CT CLINICAL HISTORY: hydronephrosis. Hydronephrosis per order. Poor historian. EXAM MEASUREMENTS: Right Kidney: 10.4 x 4.5 x 5.1 cm Left Kidney: 10.8 x 4.1 x 4.8 cm Right Kidney: Hypoechoic area seen inferiorly: 2.1 x 2.6 x 2.0 cm. Hypoechoic-anechoic area seen infe riorly, measured second: 2.7 x 2.1 x 1.7 cm. Left Kidney: Hypoechoic area seen inferiorly: 1.9 x 1.8 x 1.9 cm. Bladder: What appears to be the bladder wall measures 9.8 mm, thickened. Hyperechoic area appears to be catheter in place. Limited, patient requesting exam to be done. Bilateral Jets seen: No Fluid is seen in the RUQ, LUQ, and RLQ. Fluid seen adjacent to the spleen in LUQ. IMPRESSION: There is abdominal ascites demonstrated. No evidence of renal obstruction. Right renal cortical cysts. No evidence of a solid renal mass. Fole y catheter in the urinary bladder. Bladder is empty.
[2020-06-18] MEDS: LORATADINE 10 MG TAB PO SCH (06:26)
[2020-06-18] MEDS: PANTOPRAZOLE 40 MG TABLET PO SCH ×2 (06:26→16:39)
[2020-06-18] MEDS: METOPROLOL SUCCINATE (ER) 50 MG TAB.ER.24H PO SCH (06:26)
[2020-06-18] MEDS: TICAGRELOR 90 MG TAB PO SCH ×2 (06:27→16:39)
[2020-06-18] MEDS: MIDODRINE 5 MG TAB PO SCH ×4 (06:30→16:39)
[2020-06-18 09:04] LABS: Calcium 7.7 mg/dL (8.4-10.2); Potassium 5.4 mmol/L (3.5-5.1)
[2020-06-18] MEDS: ALPRAZolam 0.25 MG TAB PO PRN (09:15)
[2020-06-18] MEDS: SODIUM CHLORIDE 0.9% 1,000 ML IV SCH (09:37)
[2020-06-18 10:42] LABS: Glucose,Whole Blood 77 mg/dL (75-99)
[2020-06-18 10:57] LABS: ABG Base Excess -12.9 mmol/L; ABG HCO3 13 mmol/L (21-25); ABG Oxygen Saturation 98.1 % (94-97); ABG PCO2 26 mmHg (35-45); ABG PH 7.32 (7.35-7.45); ABG PO2 117 mmHg (83-108); ABG TCO2 14 mmol/L (19-24)
[2020-06-18 11:01] LABS: Allen Test Performed? no
[2020-06-18] MEDS: DOBUTamine DRIP 500 MG in DEXTROSE/WATER 1 250ML.BAG IV SCH (11:25)
--- NOTE | 2020-06-18 11:32 | P.PN ---
Subjective She is admitted for generalized weakness. Patient is found to have acute renal failure patient was receiving IV fluids. Patient does have a cut his heart failure EF of around 20-25%. Patient declined to take any medications declined any blood tests. Patient was on 80 mL of normal saline but when I saw his own receiving 40 mL still complaining of shortness of breath which appeared to be chronic clinically still doesn't appear to be in heart failure exacerbation I ordered a chest x-ray after extensive counseling and spending quite a bit of time with the patient counseling her the patient patient is agreeable to get the blood draw. Patient's serum creatinine was around 3.5 yesterday. Nothing available from today 06/18/2020 Patient's creatinine continued to get worse and the presently 5.14. Patient lactic acidosis although improved patient became more confused patient was subsequently transferred to ICU patient potassium went up to 5.4. Patient is being started on dobutamine drip and the patient is also on the sodium bicarbonate IV drip. Patient has rhonchi bilaterally. Pulmonology and nephrology are following the patient. Patient had an ABG which showed severe metabolic acidosis. Patient appears to have uremic encephalopathy Constitutional: Does have fatigue Cardio vascular: denied any chest pain, palpitations Gastrointestinal denied any nausea vomiting Pulmonary: Orly for shortness of breath Neurologic denied any new focal deficits All inpatient medications were reviewed and appropriate changes in these medica tions as dictated in the interval history and assessment and plan. Objective - Vital Signs Vital signs: Vital Signs Temp 98.9 F 06/18/20 11:00 Pulse 74 06/18/20 11:14 Resp 12 06/18/20 11:14 BP 92/70 06/18/20 11:00 Pulse Ox 98 06/18/20 11:00 Intake & Output 06/17/20 06/18/20 06/18/20 18:59 06:59 18:59 Intake Total 90 320 40 Output Total 200 200 Balance 90 120 -160 Weight 56.3 kg Intake: IV 40 Sodium Chloride 0.9% 1, 40 000 ml @ 80 mls/hr IV . [id number] [facility] Rx#:[id number] Intake, IV Titration 320 Amount Sodium Chloride 0.9% 1, 320 000 ml @ 80 mls/hr IV . [id number] TI Rx#:[id number] Oral 90 Output: Urine 200 200 Other: Voiding Method Indwelling Catheter Indwelling Catheter Indwelling Catheter # Voids 1 # Bowel Movements 1 - Exam PHYSICAL EXAMINATION: GENERAL: Confused unable to obtain much of a history HEENT: Pupils are round and equally reacting to light. EOMI. No scleral icterus. No conjunctival pallor. Normocephalic, atraumatic. No pharyngeal erythema. No thyromegaly. CARDIOVASCULAR: S1 and S2 present. No murmurs, rubs, or gallops. PULMONARY: Rhonchi limited because patient doesn't follow commands ABDOMEN: Soft, nontender, nondistended, normoactive bowel sounds. No palpable organomegaly. MUSCULOSKELETAL: No joint swelling or deformity. EXTREMITIES: No cyanosis, clubbing, or pedal edema. NEUROLOGICAL: Patient is completely confused moving all 4 limbs SKIN: No rashes. - Labs CBC & Chem 7: 06/17/20 10:24 06/18/20 07:52 Labs: Abnormal Lab Results - Last 24 Hours (Table) 06/17/20 06/18/20 06/18/20 Range/Units 10:24 07:52 10:55 ABG pH 7.32 L (7.35-7.45) ABG pCO2 26 L (35-45) mmHg ABG pO2 117 H (83-108) mmHg ABG HCO3 13 L (21-25) mmol/L ABG Total CO2 14 L (19-24) mmol/L ABG O2 Saturation 98.1 H (94-97) % Potassium 5.4 H (3.5-5.1) mmol/L Carbon Dioxide 14 L (22-30) mmol/L BUN 107 H* (9-20) mg/dL Creatinine 5.14 H (0.66-1.25) mg/dL Glucose 71 L (74-99) mg/dL Plasma Lactic Acid Alexey 3.7 H* (0.7-2.0) mmol/L Calcium 7.7 L (8.4-10.2) mg/dL Microbiology - Last 24 Hours (Table) 06/16/20 13:00 Urine Culture - Final Urine,Clean Catch Assessment and Plan Plan: -Encephalopathy: Possibility of uremic encephalopathy patient is presently on dobutamine drip nephrology is following the patient and patient is on sodium bicarbonate drip because of her severe metabolic acidosis from a acute renal failure -Anion metabolic acidosis: Secondary to lactic acidosis and anemia. -Generalized weakness can be related to acute renal failure, patient although does have chronic weakness -Urinary incontinence secondary to Flomax w -Acute renal failure: He appears to be prerenal azotemia from hypotension, congestive heart failure. 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 -COPD without any significant exacerbation -Congestive heart failure chronic systolic dysfunction EF of around 20-25% patient is presently not in acute exacerbation patient is actually receiving IV fluids -Lactic is doses probably decrease organ perfusion from intravascular hypovolemia -Severe pulmonary hypertension -Elevated BNP patient has chronically elevated BNP around this level -hypertension -hyperlipidemia -Atrial fibrillation proximal presently rate controlled patient is presently not on any anticoagulation not on anti-coagulation at this -Anemia of chronic kidney disease -Coronary artery disease -DVT prophylaxis with subcutaneous heparin
--- NOTE | 2020-06-18 11:33 | XR ---
EXAMINATION TYPE: XR chest 1V DATE OF EXAM: 06/18/2020 COMPARISON: 06/17/2020 INDICATION: CHF TECHNIQUE: Single frontal view of the chest is obtained. FINDINGS: The heart size is mildly prominent. The pulmonary vasculature is normal. The lungs are clear. IMPRESSION: 1. Mild cardiomegaly
--- NOTE | 2020-06-18 11:44 | PN ---
PROGRESS NOTE Patient is seen for followup for acute kidney injury. Overnight, he has been more confused. Patient has had poor urine output at only about 200 mL for 24 hours. His blood pressure remains low with systolic in the 90s and occasionally dipping down into the 87 mmHg. Patient had developed shortness of breath and chest x-ray showed evidence of CHF, and therefore the IV fluids were discontinued. Patient has an indwelling Palomares catheter. Given his ongoing hypotension, he is currently being transferred to the ICU. PHYSICAL EXAMINATION: On examination today, patient is confused, comfortable, blood pressure 92/63, heart rate 74 per minute, he is afebrile. Examination of the heart S1, S2. Examination of the lungs, decreased breath sounds at bases. Abdomen is soft, nontender. Examination of the lower extremities shows no significant edema. 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 He is moving all four extremities. LABS: Show sodium of 138, potassium 5.4, chloride 107, CO2 is 14, BUN of 107, serum creatinine 5.1. Lactic acid 3.7, hemoglobin 9.2 g/dL yesterday. ASSESSMENT: 1. Acute kidney injury, ATN associated with hypotension, hypoperfusion. No evidence of obstructive uropathy currently. Patient did have some urine retention initially, currently he has an indwelling Palomares catheter. Ultrasound does not show any hydronephrosis. I will add dobutamine since his ejection fraction is only 20%- 25%, and if renal function does not improve and patient's clinical status worsens with development of CHF, he will need renal replacement therapy. 2. Metabolic acidosis and anion gap associated with renal failure and lactic acidosis. Start bicarb drip. 3. Mild hyperkalemia associated with acute kidney injury, acidosis. 4. CHF systolic, acute on top of chronic. 5. Cardiomyopathy, ejection fraction 20% to 25%. 6. Chronic kidney disease stage 3 secondary to nephrosclerosis with previous creatinine around 1.9-2 mg/dL in March of 2020. PLAN: Agree with transfer to ICU. Start IV bicarb and start dobutamine drip. If patient's respiratory status worsens, will give him a dose of Lasix and consider renal replacement therapy. MMODL / IJN: [id number] /
[2020-06-18] MEDS: DEXTROSE 5% IN WATER 1,000 ML with SODIUM BICARB (1 MEQ/ML) 150 ML IV SCH (11:51)
--- NOTE | 2020-06-18 12:35 | P.PN ---
Subjective Progress Note Date: 06/18/20 This is a 74-year-old male patient with an extensive cardiac disease and coronary artery disease and CHF with impaired LV function with an ejection fraction of 20-25% home of asked to see because of shortness of breath. The patient is known to have COPD which is mild and based on previous spirometry fro 2015 his FEV1 was in order of 80% of predicted is not oxygen dependent. He has chronic kidney disease. His baseline creatinine is around 1.8. He has prostate enlargement and the patient does self-catheterization at home. Recently he has been noted to have urinary incontinence and dribbling without any dysuria or any change in the color or characteristics of urine. No hematuria. He has noted some change in the urine output and for that reason he decided to come in. In the emergency did complain of some shortness of breath. He was also complaining of generalized weakness. It was noted that his creatinine was up to 3.5. Based on that the patient was admitted to the hospital. He is currently being given IV fluids with normal saline at the rate of 80 mL an hour. He has no fever. No chills. No hemoptysis no pleurisy. His chest x-ray showing cardiomegaly without any acute abnormalities. CAT scan of the brain was done in the ED and the patient has cerebral atrophy. No acute abnormalities. The patient also has no edema in the lower extremities. His room air pulse ox was 96%. He was placed on 2 L of oxygen by nasal cannula. On 06/17/2020 patient seen in follow-up on selective care unit, he is awake and alert, in no acute distress, he states he still short of breath, but does not appear to be in any acute respiratory distress, he remains on 2 L of oxygen the pulse ox of 97-100%. No fever or chills, blood pressure is 100/69, blood pressure has been stable over last 24 hours nevertheless patient's lactic acid remains elevated, was 5.9 last night, patient continues on gentle IV hydration with 0.9 normal saline at a rate of 80 ML per hour, this morning lactic acid is 3.7, sodium is 1:30, potassium is 5.0, chloride is 102, CO2 17, BUN of 86, creatinine is 4.76. Yesterday we had a nurse place indwelling catheter, Palomares catheter remains in place, urinalysis showed 1+ ketones, small amount of leuk trase, 13 of white blood cells, urine culture was sent and is pending at this time. Renal profile has been worsening, nephrology consultation has been obtained, patient remains on midodrine for chronic hypotension 06/18/2000 and answering the patient for a follow-up. Compared to yesterday, the patient is much more lethargic and sleepy. I noted that overnight the patient became hypotensive. He was started on midodrine. Subsequently, his urine output dropped and this morning the patient was started on dobutamine infusion considering that his hypotension and renal failure is related to cardiorenal factors. As mentioned earlier, the patient has multivessel coronary artery disease and severe cardiomyopathy with an EF around 20-25%. His IV fluids has been cut down to 40 she is an hour. Based on that, I transferred this patient to the intensive care unit. A blood gas was done that showed a pH of 7.32 with a pCO2 of 26 and pO2 117. This is consistent with underlying metabolic acidosis. The serum bicarbonate of 14. The anion gap is at 17. La ctic acid level is down to 3.7. His BUN is up to 107 with a creatinine of 5.14 consistent with an acute on top of chronic kidney disease/failure. Sodium level is at 138. Potassium level is at 5.4. He has a Palomares catheter in place. Urine output is quite diminished. Discussed the case with nephrology. The patient be transferred to the intensive care unit for further evaluation and treatment. I was informed that he has a full CODE STATUS for now. Objective - Vital Signs Vital signs: Vital Signs Temp 98.9 F 06/18/20 11:00 Pulse 74 06/18/20 11:14 Resp 12 06/18/20 11:14 BP 92/70 06/18/20 11:00 Pulse Ox 98 06/18/20 11:00 Intake & Output 06/17/20 06/18/20 06/18/20 18:59 06:59 18:59 Intake Total 90 320 40 Output Total 200 200 Balance 90 120 -160 Weight 56.3 kg Intake: IV 40 Sodium Chloride 0.9% 1, 40 000 ml @ 80 mls/hr IV . [id number] [facility] Rx#:[id number] Intake, IV Titration 320 Amount Sodium Chloride 0.9% 1, 320 000 ml @ 80 mls/hr IV . [id number] [facility] Rx#:[id number] Oral 90 Output: Urine 200 200 Other: Voiding Method Indwelling Catheter Indwelling Catheter Indwelling Catheter # Voids 1 # Bowel Movements 1 - Exam GENERAL EXAM: Alert, very pleasant, 74-year-old white male, on 2 L of oxygen, with pulse ox of 97%, mildly dyspneic, not using anastomosis of breathing. The patient is lethargic and confused. HEAD: Normocephalic/atraumatic. EYES: Normal reaction of pupils, equal size. Conjunctiva pink, sclera white. NOSE: Clear with pink turbinates. THROAT: No erythema or exudates. NECK: No masses, no JVD, no thyroid enlargement, no adenopathy. CHEST: No chest wall deformity. Symmetrical expansion. LUNGS: Equal air entry with no crackles, wheeze, rhonchi or dullness. CVS: Regular rate and rhythm, normal S1 and S2, no gallops, no murmurs, no rubs ABDOMEN: Soft, nontender. No hepatosplenomegaly, normal bowel sounds, no guarding or rigidity. EXTREMITIES: No clubbing, no edema, no cyanosis, 2+ pulses and upper and lower extremities. MUSCULOSKELETAL: Muscle strength and tone normal. SPINE: No scoliosis or deformity SKIN: No rashes CENTRAL NERVOUS SYSTEM: Lethargic and confused, moving all 4 extremities, arousable. PSYCHIATRIC: Alert and oriented -3. Appropriate affect. Intact judgment and insight. - Labs CBC & Chem 7: 06/17/20 10:24 06/18/20 07:52 Labs: Abnormal Lab Results - Last 24 Hours (Table) 06/18/20 06/18/20 Range/Units 07:52 10:55 ABG pH 7.32 L (7.35-7.45) ABG pCO2 26 L (35-45) mmHg ABG pO2 117 H (83-108) mmHg ABG HCO3 13 L (21-25) mmol/L ABG Total CO2 14 L (19-24) mmol/L ABG O2 Saturation 98.1 H (94-97) % Potassium 5.4 H (3.5-5.1) mmol/L Carbon Dioxide 14 L (22-30) mmol/L BUN 107 H* (9-20) mg/dL Creatinine 5.14 H (0.66-1.25) mg/dL Glucose 71 L (74-99) mg/dL Calcium 7.7 L (8.4-10.2) mg/dL Microbiology - Last 24 Hours (Table) 06/16/20 13:00 Urine Culture - Final Urine,Clean Catch Assessment and Plan Plan: 1 chronic dyspnea, multifactorial without any decompensated take factor this point in time. The patient has chronic CAD/CHF/COPD and various other comorbidities contributing to his shortness of breath. No single decompensating fact it identified at this point in time. Meanwhile, the patient is developing acute on top of chronic kidney disease with urinary retention hypotension which is further contributing to his shortness of breath. The chest x-ray shows no signs of pulmonary edema or fluid overload at this point in time. 2 acute on chronic kidney disease. Baseline renal function is consistent with stage IV kidney disease/failure. There is a progressive worsening the renal function. Creatinine is on the rise. There is diminished urine output. Consider cardiorenal factors contributing to his acute on chronic kidney fa ilure. 3 CHF with an ejection fraction of 20-25% secondary pulmonary hypertension 4 coronary artery disease with extensive multivessel disease with previous stenting of the LAD. The patient was investigated and declined for bypass surgery back in 2016 due to comorbidities. 5 chronic atrial fibrillation, not on anticoagulants 6 anemia of chronic disease 7 lactic acidosis, improving 8 BPH and chronic obstructive uropathy. The patient performs self- catheterization. Patient also has chronic kidney disease stage 3-4 disease 9 degenerative disc disease involving the lumbar spine 10 chronic cerebral atrophy and along with a component of dementia 11 hyperlipidemia 12 hypertension 13 history of recurrent falls and gait dysfunction secondary to comorbidities 14 hypotensive 15 anion gap metabolic acidosis with a serum bicarb of 14 16 altered mentation secondary to above. This is related to metabolic factors. Plan Transfer this patient to the intensive care unit Initiated dopamine at a dose of 2.5 g per KG per minute with subsequent increase in the dose based on the clinical response Monitor the blood pressure utilize norepinephrine infusion if needed Start the patient a bicarb infusion with a total of 150 mEq of sodium bicarb at the rate of 75 mL an hour blood gases was noted chest x-ray was noted discussed the case with nephrology May need hemodialysis at later stage We'll continue to follow.
[2020-06-18] MEDS: ATORVASTATIN 80 MG TAB PO SCH (16:39)
[2020-06-18] MEDS: oxyCODONE-APAP 5-325MG 1 EACH TAB PO PRN (18:52)
[2020-06-19] MEDS: DEXTROSE 5% IN WATER 1,000 ML with SODIUM BICARB (1 MEQ/ML) 150 ML IV SCH ×3 (02:41→21:12)
--- NOTE | 2020-06-19 04:27 | XR ---
EXAMINATION TYPE: XR chest 1V portable DATE OF EXAM: 06/19/2020 COMPARISON: Yesterday HISTORY: Follow-up heart failure. Short of breath TECHNIQUE: Single view FINDINGS: There is some airspace patchy infiltrate in both lower lobes and more on the right side. Th ere is no gross heart failure. Heart is enlarged. There are chest leads. IMPRESSION: There is developing new airspace infiltrate in both lower lobes compared to yesterday. No obvious heart failure.
[2020-06-19 05:05] LABS: Calcium 7.4 mg/dL (8.4-10.2); Magnesium 1.8 mg/dL (1.6-2.3); Phosphorus 5.8 mg/dL (2.5-4.5); Potassium 3.9 mmol/L (3.5-5.1)
[2020-06-19] MEDS: PANTOPRAZOLE 40 MG TABLET PO SCH ×2 (05:05→16:50)
[2020-06-19] MEDS: TICAGRELOR 90 MG TAB PO SCH ×2 (05:05→16:50)
[2020-06-19] MEDS: LORATADINE 10 MG TAB PO SCH (05:05)
[2020-06-19] MEDS: METOPROLOL SUCCINATE (ER) 50 MG TAB.ER.24H PO SCH (05:32)
[2020-06-19] MEDS ORDERED: Potassium Replacement Protocol 1 EACH MISC MISCELLANE PRN (05:53)
[2020-06-19] MEDS ORDERED: Magnesium Replacement Protocol 1 EACH MISC MISCELLANE PRN (05:55)
[2020-06-19] MEDS ORDERED: POTASSIUM CHLORIDE ER 20 MEQ TAB.ER PO SCH (06:00)
[2020-06-19] MEDS: MIDODRINE 5 MG TAB PO SCH ×3 (06:31→16:50)
[2020-06-19] MEDS: MAGNESIUM SULFATE-D5W PMX 1 GM in DEXTROSE/WATER 1 100ML.BAG IVPB SCH ×2 (06:32→07:55)
[2020-06-19] MEDS: oxyCODONE-APAP 5-325MG 1 EACH TAB PO PRN (11:32)
[2020-06-19] MEDS: DOBUTamine DRIP 500 MG in DEXTROSE/WATER 1 250ML.BAG IV SCH (11:39)
--- NOTE | 2020-06-19 13:41 | P.PN ---
Subjective She is admitted for generalized weakness. Patient is found to have acute renal failure patient was receiving IV fluids. Patient does have a cut his heart failure EF of around 20-25%. Patient declined to take any medications declined any blood tests. Patient was on 80 mL of normal saline but when I saw his own receiving 40 mL still complaining of shortness of breath which appeared to be chronic clinically still doesn't appear to be in heart failure exacerbation I ordered a chest x-ray after extensive counseling and spending quite a bit of time with the patient counseling her the patient patient is agreeable to get the blood draw. Patient's serum creatinine was around 3.5 yesterday. Nothing available from today 06/18/2020 Patient's creatinine continued to get worse and the presently 5.14. Patient lactic acidosis although improved patient became more confused patient was subsequently transferred to ICU patient potassium went up to 5.4. Patient is being started on dobutamine drip and the patient is also on the sodium bicarbonate IV drip. Patient has rhonchi bilaterally. Pulmonology and nephrology are following the patient. Patient had an ABG which showed severe metabolic acidosis. Patient appears to have uremic encephalopathy 06/19/2020 Patient is more awake and alert and oriented 3 today does have some bibasilar crackles and exam. Chest x-ray did not show any significant abnormality patient says bicarbonate was decreased to 50 and patient is presently on dobutamine drip with improving creatinine, lactic acid was not obtained today. Patient in supplement improved now patient is complaining of fatigue and the discomfort in the left upper abdomen Constitutional: Does have fatigue Cardio vascular: denied any chest pain, palpitations Gastrointestinal denied any nausea vomiting Pulmonary: Orly for shortness of breath Neurologic denied any new focal deficits All inpatient medications were reviewed and appropriate changes in these medications as dictated in the interval history and assessment and plan. Objective - Vital Signs Vital signs: Vital Signs Temp 98 F 06/19/20 12:00 Pulse 73 06/19/20 12:00 Resp 14 06/19/20 12:00 BP 86/64 06/19/20 12:00 Pulse Ox 96 06/19/20 12:00 Intake & Output 06/18/20 06/19/20 06/19/20 18:59 06:59 18:59 Intake Total 615 1304 543.837 Output Total 680 822 315 Balance -65 482 228.837 Weight 72.5 kg Intake: IV 565 1054 441.5 0.9 NaCl 110 10 DOBUTamine DRIP 500 mg In 44 31.5 Dextrose/Water 1 250ml. bag @ 2.5 MCG/KG/MIN 5. 438 mls/hr IV .Q24H [facility] Rx#:[id number] Dextrose 5% in Water 1, 525 900 400 000 ml @ 50 mls/hr IV . Q23H [facility] with Sodium Bicarb (1 Meq/ml) 150 ml Rx#:[id number] Sodium Chloride 0.9% 1, 40 000 ml @ 80 mls/hr IV . [id number] [facility] Rx#:[id number] Intake, IV Titration 102.337 Amount DOBUTamine DRIP 500 mg In 102.337 Dextrose/Water 1 250ml. bag @ 2.5 MCG/KG/MIN 5. 438 mls/hr IV .Q24H [facility] Rx#:[id number] Oral 50 250 Output: Urine 680 822 315 Other: Voiding Method Indwelling Catheter Indwelling Catheter Indwelling Catheter # Voids 1 - Exam PHYSICAL EXAMINATION: GENERAL: The patient is alert and oriented x3, not in any acute distress. Well developed, well nourished. HEENT: Pupils are round and equally reacting to light. EOMI. No scleral icterus. No conjunctival pallor. Normocephalic, atraumatic. No pharyngeal erythema. No thyromegaly. CARDIOVASCULAR: S1 and S2 present. No murmurs, rubs, or gallops. PULMONARY: Chest is clear to auscultation, no wheezing, there may be mild bibasilar crackles ABDOMEN: Soft, nontender, nondistended, normoactive bowel sounds. No palpable organomegaly. MUSCULOSKELETAL: No joint swelling or deformity. EXTREMITIES: No cyanosis, clubbing, or pedal edema. NEUROLOGICAL: Gross neurological examination did not reveal any focal deficits. SKIN: No rashes. - Labs CBC & Chem 7: 06/19/20 04:29 06/19/20 04:29 Labs: Abnormal Lab Results - Last 24 Hours (Table) 06/19/20 06/19/20 06/19/20 Range/Units 04:29 04:29 04:29 RBC 3.56 L (4.30-5.90) m/uL Hgb 8.4 L (13.0-17.5) gm/dL Hct 26.8 L (39.0-53.0) % MCV 75.4 L D (80.0-100.0) fL MCH 23.7 L (25.0-35.0) pg RDW 19.2 H (11.5-15.5) % Plt Count 138 L (150-450) k/uL Lymphocytes # 0.9 L (1.0-4.8) k/uL Carbon Dioxide 21 L (22-30) mmol/L BUN 104 H* (9-20) mg/dL Creatinine 4.07 H (0.66-1.25) mg/dL Glucose 130 H (74-99) mg/dL Calcium 7.4 L (8.4-10.2) mg/dL Phosphorus 5.8 H (2.5-4.5) mg/dL Troponin I 0.367 H* (0.000-0.034) ng/mL Assessment and Plan Plan: -Encephalopathy: Possibility of uremic encephalopathy patient is presently on dobutamine drip nephrology is following the patient and patient is on sodium bicarbonate drip because of her severe metabolic acidosis from a acute renal failure, encephalopathy improved and metabolic acidosis improved -Anion metabolic acidosis: Secondary to lactic acidosis and uremia, improved now -Generalized weakness can be related to acute renal failure, patient although does have chronic weakness -Urinary incontinence secondary to Flomax w -Acute renal failure: He appears to be prerenal azotemia from hypotension, congestive heart failure. 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 -COPD without any significant exacerbation -Congestive heart failure chronic systolic dysfunction EF of around 20-25% patient is presently not in acute exacerbation patient is actually receiving IV fluids -Lactic is doses probably decrease organ perfusion from intravascular hypovolemia -Severe pulmonary hypertension -Elevated BNP patient has chronically elevated BNP around this level -hypertension -hyperlipidemia -Atrial fibrillation proximal presently rate controlled patient is presently not on any anticoagulation not on anti-coagulation at this -Anemia of chronic kidney disease -Coronary artery disease -DVT prophylaxis with subcutaneous heparin
--- NOTE | 2020-06-19 13:50 | P.PN ---
Subjective Progress Note Date: 06/19/20 This is a 74-year-old male patient with an extensive cardiac disease and coronary artery disease and CHF with impaired LV function with an ejection fraction of 20-25% home of asked to see because of shortness of breath. The patient is known to have COPD which is mild and based on previous spirometry fro 2015 his FEV1 was in order of 80% of predicted is not oxygen dependent. He has chronic kidney disease. His baseline creatinine is around 1.8. He has prostate enlargement and the patient does self-catheterization at home. Recently he has been noted to have urinary incontinence and dribbling without any dysuria or any change in the color or characteristics of urine. No hematuria. He has noted some change in the urine output and for that reason he decided to come in. In the emergency did complain of some shortness of breath. He was also complaining of generalized weakness. It was noted that his creatinine was up to 3.5. Based on that the patient was admitted to the hospital. He is currently being given IV fluids with normal saline at the rate of 80 mL an hour. He has no fever. No chills. No hemoptysis no pleurisy. His chest x-ray showing cardiomegaly without any acute abnormalities. CAT scan of the brain was done in the ED and the patient has cerebral atrophy. No acute abnormalities. The patient also has no edema in the lower extremities. His room air pulse ox was 96%. He was placed on 2 L of oxygen by nasal cannula. On 06/17/2020 patient seen in follow-up on selective care unit, he is awake and alert, in no acute distress, he states he still short of breath, but does not appear to be in any acute respiratory distress, he remains on 2 L of oxygen the pulse ox of 97-100%. No fever or chills, blood pressure is 100/69, blood pressure has been stable over last 24 hours nevertheless patient's lactic acid remains elevated, was 5.9 last night, patient continues on gentle IV hydration with 0.9 normal saline at a rate of 80 ML per hour, this morning lactic acid is 3.7, sodium is 1:30, potassium is 5.0, chloride is 102, CO2 17, BUN of 86, creatinine is 4.76. Yesterday we had a nurse place indwelling catheter, Palomares catheter remains in place, urinalysis showed 1+ ketones, small amount of leuk trase, 13 of white blood cells, urine culture was sent and is pending at this time. Renal profile has been worsening, nephrology consultation has been obtained, patient remains on midodrine for chronic hypotension 06/18/2000 and answering the patient for a follow-up. Compared to yesterday, the patient is much more lethargic and sleepy. I noted that overnight the patient became hypotensive. He was started on midodrine. Subsequently, his urine output dropped and this morning the patient was started on dobutamine infusion considering that his hypotension and renal failure is related to cardiorenal factors. As mentioned earlier, the patient has multivessel coronary artery disease and severe cardiomyopathy with an EF around 20-25%. His IV fluids has been cut down to 40 she is an hour. Based on that, I transferred this patient to the intensive care unit. A blood gas was done that showed a pH of 7.32 with a pCO2 of 26 and pO2 117. This is consistent with underlying metabolic acidosis. The serum bicarbonate of 14. The anion gap is at 17. La ctic acid level is down to 3.7. His BUN is up to 107 with a creatinine of 5.14 consistent with an acute on top of chronic kidney disease/failure. Sodium level is at 138. Potassium level is at 5.4. He has a Palomares catheter in place. Urine output is quite diminished. Discussed the case with nephrology. The patient be transferred to the intensive care unit for further evaluation and treatment. I was informed that he has a full CODE STATUS for now. 06/19/2020, the patient is being seen for a follow-up. He got transferred to the intensive care unit because of development of acute on chronic kidney injury. The patient's creatinine was on the rise. The patient was started on dobutamine to augment cardiac output at a dose of 2.5 g per KG per minute. The patient was also started on bicarbonate drip and today's bicarb level is up to 21. Clinically improved. His much more awake and alert. He is following commands. He is a bit angry and he wants to leave the hospital and go home. I think there may be a component of confusion also. Overall, he needs to be much more alert and awake and interactive compared to yesterday. The patient'srenal function and urine output is improved. Creatinineis down to 4.07 and the BUN is at 104. The rest of theelectrolytes are all within normal limits. The patient is not having any significant cardiac arrhythmias. He was having borderline low blood pressure and he was started on Midrin. He did not require any pressors. Furthermore, the dobutamine did not cause any significant drop in his blood pressure. He remains afebrile.the chest x-ray from today shows a new airspace disease in the lower lobe compared to yesterday. There is cardiomegaly.I doubt this is related to pneumonia and I think this is related toand he is producing a round 50-75 mL an hour on an hourly basis over this past 8 hours. nephrology services on the case. Objective - Vital Signs Vital signs: Vital Signs Temp 98 F 06/19/20 12:00 Pulse 73 06/19/20 12:00 Resp 14 06/19/20 12:00 BP 86/64 06/19/20 12:00 Pulse Ox 96 06/19/20 12:00 Intake & Output 06/18/20 06/19/20 06/19/20 18:59 06:59 18:59 Intake Total 615 1304 543.837 Output Total 680 822 315 Balance -65 482 228.837 Weight 72.5 kg Intake: IV 565 1054 441.5 0.9 NaCl 110 10 DOBUTamine DRIP 500 mg In 44 31.5 Dextrose/Water 1 250ml. bag @ 2.5 MCG/KG/MIN 5. 438 mls/hr IV .Q24H TI Rx#:[id number] Dextrose 5% in Water 1, 525 900 400 000 ml @ 50 mls/hr IV . Q23H TI with Sodium Bicarb (1 Meq/ml) 150 ml Rx#:[id number] Sodium Chloride 0.9% 1, 40 000 ml @ 80 mls/hr IV . [id number] TI Rx#:[id number] Intake, IV Titration 102.337 Amount DOBUTamine DRIP 500 mg In 102.337 Dextrose/Water 1 250ml. bag @ 2.5 MCG/KG/MIN 5. 438 mls/hr IV .Q24H TI Rx#:[id number] Oral 50 250 Output: Urine 680 822 315 Other: Voiding Method Indwelling Catheter Indwelling Catheter Indwelling Catheter # Voids 1 - Exam GENERAL EXAM: Alert, very pleasant, 74-year-old white male, on 2 L of oxygen, with pulse ox of 97%, the patient is calm and comfortable and the patient is not using accessory muscles of breathing. He is interacting. His communicating. He keeps on saying that he wants to go home. HEAD: Normocephalic/atraumatic. EYES: Normal reaction of pupils, equal size. Conjunctiva pink, sclera white. NOSE: Clear with pink turbinates. THROAT: No erythema or exudates. NECK: No masses, no JVD, no thyroid enlargement, no adenopathy. CHEST: No chest wall deformity. Symmetrical expansion. LUNGS: Equal air entry with no crackles, wheeze, rhonchi or dullness. CVS: Regular rate and rhythm, normal S1 and S2, no gallops, no murmurs, no rubs ABDOMEN: Soft, nontender. No hepatosplenomegaly, normal bowel sounds, no guarding or rigidity. EXTREMITIES: No clubbing, no edema, no cyanosis, 2+ pulses and upper and lower extremities. MUSCULOSKELETAL: Muscle strength and tone normal. SPINE: No scoliosis or deformity SKIN: No rashes CENTRAL NERVOUS SYSTEM: alert and awake and communicating. At times confused. No focal neurological deficit at this point in time. PSYCHIATRIC: Alert and oriented -3. Appropriate affect. Intact judgment and insight. - Labs CBC & Chem 7: 06/19/20 04:29 06/19/20 04:29 Labs: Abnormal Lab Results - Last 24 Hours (Table) 06/19/20 06/19/20 06/19/20 Range/Units 04:29 04:29 04:29 RBC 3.56 L (4.30-5.90) m/uL Hgb 8.4 L (13.0-17.5) gm/dL Hct 26.8 L (39.0-53.0) % MCV 75.4 L D (80.0-100.0) fL MCH 23.7 L (25.0-35.0) pg RDW 19.2 H (11.5-15.5) % Plt Count 138 L (150-450) k/uL Lymphocytes # 0.9 L (1.0-4.8) k/uL Carbon Dioxide 21 L (22-30) mmol/L BUN 104 H* (9-20) mg/dL Creatinine 4.07 H (0.66-1.25) mg/dL Glucose 130 H (74-99) mg/dL Calcium 7.4 L (8.4-10.2) mg/dL Phosphorus 5.8 H (2.5-4.5) mg/dL Troponin I 0.367 H* (0.000-0.034) ng/mL Assessment and Plan Plan: 1 chronic dyspnea, multifactorial without any decompensated take factor this point in time. the chest x-ray showing some new basilar pulmonary infiltrates/airspace disease which I think it's related to CHF. 2 acute on chronic kidney disease. Baseline renal function is consistent with stage IV kidney disease/failure. the renal function improved with dobutamine and the patient is producing better urine output in the creatinine is dropped down to 4.0. 3 CHF with an ejection fraction of 20-25% secondary pulmonary hypertension 4 coronary artery disease with extensive multivessel disease with previous stenting of the LAD. The patient was investigated and declined for bypass surgery back in 2016 due to comorbidities. 5 chronic atrial fibrillation, not on anticoagulants 6 anemia of chronic disease 7 lactic acidosis, improving 8 BPH and chronic obstructive uropathy. The patient performs self- catheterization. Patient also has chronic kidney disease stage 3-4 disease 9 degenerative disc disease involving the lumbar spine 10 chronic cerebral atrophy and along with a component of dementia 11 hyperlipidemia 12 hypertension 13 history of recurrent falls and gait dysfunction secondary to comorbidities 14 hypotensive 15 anion gap metabolic acidosis with a serum bicarb of 14 16 altered mentation secondary to above. This is related to metabolic factors. Plan dopamine at a dose of 2.5 g per KG per minute with subsequent increase in the dose based on the clinical response Monitor the blood pressure utilize norepinephrine infusion if needed chest x-ray was noted monitor the renal function and urine output. There is some fullness compared to yesterday. Nephrology is on the case. May need hemodialysis at later stage We'll continue to follow.
--- NOTE | 2020-06-19 15:52 | PN ---
PROGRESS NOTE Patient is seen for followup for acute kidney injury on top of chronic kidney disease. He was transferred to the ICU yesterday for hypotension, altered mentation and significantly low urine output and worsening renal function. Patient was started on dobutamine drip and his urine output improved. He was also started on bicarb. Metabolic acidosis has improved and mentation has improved as well. Patient is still confused, though and he wants to go home. Patient is still not able to make decisions regarding his code status. Nursing staff is trying to get a hold of family. PHYSICAL EXAMINATION: On examination today, blood pressure was 81/70, heart rate of 70 per minute, he is afebrile. Examination of the heart S1, S2. Examination of the lungs, bilateral breath sounds are heard. Abdomen is soft, nontender. Examination of the lower extremities shows no significant edema. [employer] exam shows patient is moving all 4 extremities. He is somewhat confused. LABS: Show hemoglobin 8.4, sodium 138, potassium 3.9, chloride 106, BUN 104, serum creatinine 4.07. ASSESSMENT: 1. Acute kidney injury ATN associated with hypotension, hypoperfusion, currently improved. Patient was oliguric. His urine output has improved significantly now about 40-70 mL an hour. Definitely, there was a component of cardiorenal syndrome as well and this is improved now with the dobutamine. 2. Congestive heart failure, ejection fraction 20%-25%, currently not in significant heart failure. 3. Anion gap metabolic acidosis associated with renal failure and lactic acidosis currently improved, continue with the bicarb drip. 4. Hyperkalemia associated with acute kidney injury and metabolic acidosis, now improved. 5. Chronic kidney disease stage 3 secondary to nephrosclerosis. Baseline creatinine 1.9-2 mg/dL. PLAN: Continue with the dobutamine drip and bicarb drip. Repeat labs in a.m. We can likely discontinue the bicarb drip in a.m. There is no evidence of obstruction. Hopefully renal function will continue to improve. MMODL / IJN: [id number] /
[2020-06-19] MEDS: ATORVASTATIN 80 MG TAB PO SCH (16:50)
--- NOTE | 2020-06-19 16:58 | CONS ---
CONSULTATION CHIEF COMPLAINT: Hypotension and cardiomyopathy. This is a 74-year-old gentleman with history of coronary artery disease, status post angioplasty of LAD, hypertension, dyslipidemia, liver disease, ETOH abuse, GERD and chronic kidney disease who presented to hospital with symptoms of shortness of breath, cough and frequent falls. He was initially thought to be intravascularly volume- depleted with elevated creatinine. He was started on dobutamine, became somewhat confused, and he is currently in the ICU. I have been consulted because of confusion. At the time of my evaluation, patient appears quite confused. His chest x-ray shows bilateral lower lobe airspace disease. He denies any chest pain, difficulty in breathing or leg edema. The patient had an echocardiogram in March that showed an ejection fraction of 20% to 25% with mild to moderate mitral regurgitation and mild tricuspid regurgitation with an enlarged right ventricle. PAST MEDICAL HISTORY: Past medical history is significant for coronary artery disease, dyslipidemia, cardiomyopathy, chronic systolic heart failure. MEDICATIONS: Medications at home included Brilinta 90 b.i.d., Flomax, Prilosec, ProAmatine, Toprol- XL 50 daily, magnesium 400 b.i.d., Lasix 40 daily, Zyrtec, Lipitor and Xanax. ALLERGIES: There are NO KNOWN DRUG ALLERGIES. FAMILY HISTORY: Negative for premature coronary artery disease. SOCIAL HISTORY: Negative for current smoking, EtOH abuse or drug abuse on and. REVIEW OF SYSTEMS: I am unable to obtain from the patient, who is confused and somewhat agitated. PHYSICAL EXAMINATION: Heart rate is 68 beats per minute. Blood pressure is 81/60, respiratory rate 18, O2 saturation 97% on room air. There is no jugular venous distention. Carotid upstroke is diminished. There is no bruit. Chest exam reveals good air entry bilaterally. Heart exam reveals first and second heart sounds and a systolic murmur at the apex. Abdomen is soft. Examination of extremities did not reveal any edema. Peripheral pulses are felt. LABS: Labs show a hemoglobin of 8.4. Platelet count is 138. Potassium is 3.9, creatinine 4. ASSESSMENT: 1. Chronic systolic heart failure, currently volume-depleted. 2. Acute renal failure. 3. Cardiomyopathy. 4. Coronary artery disease, status post angioplasty. 5. Confusion. PLAN: I will continue the patient on intravenous dobutamine. MMODL / IJN: [id number] /
[2020-06-20] MEDS: LORATADINE 10 MG TAB PO SCH (05:56)
[2020-06-20] MEDS: METOPROLOL SUCCINATE (ER) 50 MG TAB.ER.24H PO SCH (05:56)
[2020-06-20] MEDS: PANTOPRAZOLE 40 MG TABLET PO SCH ×4 (05:56→21:58)
[2020-06-20] MEDS: TICAGRELOR 90 MG TAB PO SCH ×4 (05:56→21:58)
[2020-06-20] MEDS: ALPRAZolam 0.25 MG TAB PO PRN ×2 (05:56→21:59)
[2020-06-20] MEDS: MIDODRINE 5 MG TAB PO SCH ×4 (06:41→17:46)
[2020-06-20 08:18] LABS: Anisocytosis Slight; HCT 29.1 % (39.0-53.0); HGB 8.9 gm/dL (13.0-17.5); Hypochromasia Marked; MCH 23.5 pg (25.0-35.0); MCHC 30.5 g/dL (31.0-37.0); MCV 77.2 fL (80.0-100.0); Mean Platelet Volume 9.6; Microcytosis Slight; Platelet Count 146 k/uL (150-450); Poikilocytosis Slight; RBC 3.77 m/uL (4.30-5.90); WBC 7.4 k/uL (3.8-10.6)
[2020-06-20 08:35] LABS: Albumin 3.8 g/dL (3.5-5.0); Calcium 7.9 mg/dL (8.4-10.2); Magnesium 1.9 mg/dL (1.6-2.3); Potassium 3.6 mmol/L (3.5-5.1); Total Bilirubin 1.2 mg/dL (0.2-1.3); Total Protein 7.2 g/dL (6.3-8.2)
[2020-06-20] MEDS: oxyCODONE-APAP 5-325MG 1 EACH TAB PO PRN ×3 (09:21→21:58)
[2020-06-20] MEDS: SODIUM CHLORIDE 0.9% 1,000 ML IV SCH (09:33)
--- NOTE | 2020-06-20 10:19 | XR ---
EXAMINATION TYPE: XR chest 1V portable DATE OF EXAM: 06/20/2020 COMPARISON: 06/19/2020 INDICATION: Fluid overload TECHNIQUE: Single frontal view of the chest is obtained. FINDINGS: The heart size is mildly prominent. The pulmonary vasculature is normal. Mild right lower lobe infiltrate is present. Atypical pulmonary edema and atelectasis are within the differential. Pneumonia is considered less likely. Small right pleural effusion is present which is d eveloping from prior IMPRESSION: 1. Interval development of a small right pleural effusion. 2. Mild improving right lower lobe infiltrate 3. Mild cardiomegaly
[2020-06-20] MEDS: DOBUTamine DRIP 500 MG in DEXTROSE/WATER 1 250ML.BAG IV SCH (10:56)
--- NOTE | 2020-06-20 12:15 | PN ---
PROGRESS NOTE Edouard is admitted to hospital with chronic systolic heart failure, intravascular volume depletion and renal failure. He is doing much better. Confusion has improved. He is on intravenous dobutamine and putting out urine good. PHYSICAL EXAMINATION: On exam, heart rate is 87 beats per minute. Blood pressure is 97/74. Respiratory rate is 18. Chest exam reveals good air entry bilaterally. Heart exam reveals first and second heart sounds. Systolic murmur at the apex. ABDOMEN: Soft. Exam of extremities did not reveal any edema. He is currently on Lipitor, intravenous dobutamine, Toprol-XL and Brilinta. ASSESSMENT: 1. Chronic systolic heart failure. 2. Renal failure. PLAN: I will continue the dobutamine for the next 24 hours. We will stop it at that time and gradually resume the diuretics. MMODL / IJN: [id number] /
--- NOTE | 2020-06-20 12:59 | P.PN ---
Subjective Progress Note Date: 06/20/20 This is a 74-year-old male patient with an extensive cardiac disease and coronary artery disease and CHF with impaired LV function with an ejection fraction of 20-25% home of asked to see because of shortness of breath. The patient is known to have COPD which is mild and based on previous spirometry fro 2015 his FEV1 was in order of 80% of predicted is not oxygen dependent. He has chronic kidney disease. His baseline creatinine is around 1.8. He has prostate enlargement and the patient does self-catheterization at home. Recently he has been noted to have urinary incontinence and dribbling without any dysuria or any change in the color or characteristics of urine. No hematuria. He has noted some change in the urine output and for that reason he decided to come in. In the emergency did complain of some shortness of breath. He was also complaining of generalized weakness. It was noted that his creatinine was up to 3.5. Based on that the patient was admitted to the hospital. He is currently being given IV fluids with normal saline at the rate of 80 mL an hour. He has no fever. No chills. No hemoptysis no pleurisy. His chest x-ray showing cardiomegaly without any acute abnormalities. CAT scan of the brain was done in the ED and the patient has cerebral atrophy. No acute abnormalities. The patient also has no edema in the lower extremities. His room air pulse ox was 96%. He was placed on 2 L of oxygen by nasal cannula. On 06/17/2020 patient seen in follow-up on selective care unit, he is awake and alert, in no acute distress, he states he still short of breath, but does not appear to be in any acute respiratory distress, he remains on 2 L of oxygen the pulse ox of 97-100%. No fever or chills, blood pressure is 100/69, blood pressure has been stable over last 24 hours nevertheless patient's lactic acid remains elevated, was 5.9 last night, patient continues on gentle IV hydration with 0.9 normal saline at a rate of 80 ML per hour, this morning lactic acid is 3.7, sodium is 1:30, potassium is 5.0, chloride is 102, CO2 17, BUN of 86, creatinine is 4.76. Yesterday we had a nurse place indwelling catheter, Palomares catheter remains in place, urinalysis showed 1+ ketones, small amount of leuk trase, 13 of white blood cells, urine culture was sent and is pending at this time. Renal profile has been worsening, nephrology consultation has been obtained, patient remains on midodrine for chronic hypotension 06/18/2000 and answering the patient for a follow-up. Compared to yesterday, the patient is much more lethargic and sleepy. I noted that overnight the patient became hypotensive. He was started on midodrine. Subsequently, his urine output dropped and this morning the patient was started on dobutamine infusion considering that his hypotension and renal failure is related to cardiorenal factors. As mentioned earlier, the patient has multivessel coronary artery disease and severe cardiomyopathy with an EF around 20-25%. His IV fluids has been cut down to 40 she is an hour. Based on that, I transferred this patient to the intensive care unit. A blood gas was done that showed a pH of 7.32 with a pCO2 of 26 and pO2 117. This is consistent with underlying metabolic acidosis. The serum bicarbonate of 14. The anion gap is at 17. La ctic acid level is down to 3.7. His BUN is up to 107 with a creatinine of 5.14 consistent with an acute on top of chronic kidney disease/failure. Sodium level is at 138. Potassium level is at 5.4. He has a Palomares catheter in place. Urine output is quite diminished. Discussed the case with nephrology. The patient be transferred to the intensive care unit for further evaluation and treatment. I was informed that he has a full CODE STATUS for now. 06/19/2020, the patient is being seen for a follow-up. He got transferred to the intensive care unit because of development of acute on chronic kidney injury. The patient's creatinine was on the rise. The patient was started on dobutamine to augment cardiac output at a dose of 2.5 g per KG per minute. The patient was also started on bicarbonate drip and today's bicarb level is up to 21. Clinically improved. His much more awake and alert. He is following commands. He is a bit angry and he wants to leave the hospital and go home. I think there may be a component of confusion also. Overall, he needs to be much more alert and awake and interactive compared to yesterday. The patient'srenal function and urine output is improved. Creatinineis down to 4.07 and the BUN is at 104. The rest of theelectrolytes are all within normal limits. The patient is not having any significant cardiac arrhythmias. He was having borderline low blood pressure and he was started on Midrin. He did not require any pressors. Furthermore, the dobutamine did not cause any significant drop in his blood pressure. He remains afebrile.the chest x-ray from today shows a new airspace disease in the lower lobe compared to yesterday. There is cardiomegaly.I doubt this is related to pneumonia and I think this is related toand he is producing a round 50-75 mL an hour on an hourly basis over this past 8 hours. nephrology services on the case. 06/20/2020, I'm seeing the patient for a follow-up. Patient is doing much better compared to yesterday. The patient has been hemodynamically stable on dobutamine 2.5 g per KG per minute. This augmented his cardiac output and the patient renal function is improved and the patient is producing better urine output for now.the patient's creatinine is down to 2.53 and the patient is producing adequate amount of urine output. Potassium level is at 3.6. Serum bicarb is 26.the white cell count is at 7.3 with a hemoglobin of 8.9. The chest x-ray showing some hazy infiltration of the right lung base along with some possible pleural effusion. His mental status improved. Overnight he became a b it more confused and restless and agitated. This improved in the early childhood director hours and he is currently appropriate for now. Is tolerating his diet. No cardiac arrhythmias have been noted. No hypotension. Nephritis on the case. Cardiology is also on the case.also, the patient's serum bicarb is improved and septal 26. Objective - Vital Signs Vital signs: Vital Signs Temp 97.8 F 06/20/20 08:00 Pulse 67 06/20/20 11:00 Resp 16 06/20/20 11:00 BP 93/66 06/20/20 11:00 Pulse Ox 98 06/20/20 11:00 Intake & Output 06/19/20 06/20/20 06/20/20 18:59 06:59 18:59 Intake Total 994.837 671.9 286.326 Output Total 605 1075 395 Balance 389.837 -403.1 -108.674 Weight 76 kg Intake: IV 822.5 671.9 188.0 0.9 NaCl 70 10 60 DOBUTamine DRIP 500 mg In 52.5 61.9 22.6 Dextrose/Water 1 250ml. bag @ 2.5 MCG/KG/MIN 5. 438 mls/hr IV .Q24H TI Rx#:[id number] Dextrose 5% in Water 1, 700 600 100 000 ml @ 50 mls/hr IV . Q23H TI with Sodium Bicarb (1 Meq/ml) 150 ml Rx#:[id number] dobutamine 5.4 Intake, IV Titration 102.337 98.326 Amount DOBUTamine DRIP 500 mg In 102.337 98.326 Dextrose/Water 1 250ml. bag @ 2.5 MCG/KG/MIN 5. 438 mls/hr IV .Q24H TI Rx#:[id number] Oral 70 Output: Urine 605 1075 395 Other: Voiding Method Indwelling Catheter Indwelling Catheter # Voids 1 - Exam GENERAL EXAM: Alert, very pleasant, 74-year-old white male, on 2 L of oxygen, with pulse ox of 97%, the patient is calm and comfortable and the patient is not using accessory muscles of breathing. He is interacting. His communicating. He keeps on saying that he wants to go home. HEAD: Normocephalic/atraumatic. EYES: Normal reaction of pupils, equal size. Conjunctiva pink, sclera white. NOSE: Clear with pink turbinates. THROAT: No erythema or exudates. NECK: No masses, no JVD, no thyroid enlargement, no adenopathy. CHEST: No chest wall deformity. Symmetrical expansion. LUNGS: Equal air entry with no crackles, wheeze, rhonchi or dullness. CVS: Regular rate and rhythm, normal S1 and S2, no gallops, no murmurs, no rubs ABDOMEN: Soft, nontender. No hepatosplenomegaly, normal bowel sounds, no guarding or rigidity. EXTREMITIES: No clubbing, no edema, no cyanosis, 2+ pulses and upper and lower extremities. MUSCULOSKELETAL: Muscle strength and tone normal. SPINE: No scoliosis or deformity SKIN: No rashes CENTRAL NERVOUS SYSTEM: alert and awake and communicating. At times confused. No focal neurological deficit at this point in time. PSYCHIATRIC: Alert and oriented -3. Appropriate affect. Intact judgment and insight. - Labs CBC & Chem 7: 06/20/20 07:24 06/20/20 07:24 Labs: Abnormal Lab Results - Last 24 Hours (Table) 06/20/20 06/20/20 Range/Units 07:24 07:24 RBC 3.77 L (4.30-5.90) m/uL Hgb 8.9 L (13.0-17.5) gm/dL Hct 29.1 L (39.0-53.0) % MCV 77.2 L (80.0-100.0) fL MCH 23.5 L (25.0-35.0) pg MCHC 30.5 L (31.0-37.0) g/dL RDW 19.0 H (11.5-15.5) % Plt Count 146 L (150-450) k/uL BUN 85 H (9-20) mg/dL Creatinine 2.53 H (0.66-1.25) mg/dL Glucose 123 H (74-99) mg/dL Calcium 7.9 L (8.4-10.2) mg/dL AST 132 H (17-59) U/L ALT 78 H (4-49) U/L Alkaline Phosphatase 154 H (38-126) U/L Assessment and Plan Plan: 1 chronic dyspnea, multifactorial and chronic. 2 acute on chronic kidney disease. Baseline renal function is consistent with stage IV kidney disease/failure. the renal function improved with dobutamine and the patient continues to improve in the creatinine is down to 2.5 on today's evaluation. The patient is producing adequate amount of urine output. 3 CHF with an ejection fraction of 20-25% secondary pulmonary hypertension 4 coronary artery disease with extensive multivessel disease with previous stenting of the LAD. The patient was investigated and declined for bypass surgery back in 2016 due to comorbidities. 5 chronic atrial fibrillation, not on anticoagulants 6 anemia of chronic disease 7 lactic acidosis, improving 8 BPH and chronic obstructive uropathy. The patient performs self- catheterization. Patient also has chronic kidney disease stage 3-4 disease 9 degenerative disc disease involving the lumbar spine 10 chronic cerebral atrophy and along with a component of dementia 11 hyperlipidemia 12 hypertension 13 history of recurrent falls and gait dysfunction secondary to comorbidities 14 hypotensive, improved and patient is currently on midodrine 15 anion gap metabolic acidosis improved and bicarb infusion 16 altered mentation secondary to above. This is related to metabolic factors. Plan recommend continuing the dobutamine at a dose of 2.5 g per KG per minute for another 24 hours Monitor the blood pressure utilize norepinephrine infusion if needed chest x-ray was noted and there is some vacate Unasyn pleural effusion on the right which is small monitor the renal function and urine output. the renal function continues to improve. Creatinine is down to 2.6. Stop the bicarb infusion Nephrology is on the case. mentally the patient is improved. He is having some occasional delirium overnight. Currently is alert and awake. We'll continue to follow.
[2020-06-20] MEDS ORDERED: QUEtiapine 25 MG TAB PO PRN (14:59)
--- NOTE | 2020-06-20 15:23 | P.PN ---
Subjective She is admitted for generalized weakness. Patient is found to have acute renal failure patient was receiving IV fluids. Patient does have a cut his heart failure EF of around 20-25%. Patient declined to take any medications declined any blood tests. Patient was on 80 mL of normal saline but when I saw his own receiving 40 mL still complaining of shortness of breath which appeared to be chronic clinically still doesn't appear to be in heart failure exacerbation I ordered a chest x-ray after extensive counseling and spending quite a bit of time with the patient counseling her the patient patient is agreeable to get the blood draw. Patient's serum creatinine was around 3.5 yesterday. Nothing available from today 06/18/2020 Patient's creatinine continued to get worse and the presently 5.14. Patient lactic acidosis although improved patient became more confused patient was subsequently transferred to ICU patient potassium went up to 5.4. Patient is being started on dobutamine drip and the patient is also on the sodium bicarbonate IV drip. Patient has rhonchi bilaterally. Pulmonology and nephrology are following the patient. Patient had an ABG which showed severe metabolic acidosis. Patient appears to have uremic encephalopathy 06/19/2020 Patient is more awake and alert and oriented 3 today does have some bibasilar crackles and exam. Chest x-ray did not show any significant abnormality patient says bicarbonate was decreased to 50 and patient is presently on dobutamine drip with improving creatinine, lactic acid was not obtained today. Patient in supplement improved now patient is complaining of fatigue and the discomfort in the left upper abdomen Septum and 2019 Patient overall has significant improvement patient remains on dobutamine 2.5 mcg/kg/m. Patient's serum creatinine is improving came down to 2.53. Patient urine output is better patient was having sundowners and is getting agitated at nighttime patient was started on Seroquel for that of Zyprexa Zydis for that. Patient is also on Percocet every 4 hours the frequency of which will be cut down to every 8 hours hourly patient received Percocet only once today. Constitutional: Does have fatigue Cardio vascular: denied any chest pain, palpitations Gastrointestinal denied any nausea vomiting Pulmonary: Orly for shortness of breath Neurologic denied any new focal deficits All inpatient medications were reviewed and appropriate changes in these medications as dictated in the interval history and assessment and plan. Objective - Vital Signs Vital signs: Vital Signs Temp 97.9 F 06/20/20 12:00 Pulse 63 06/20/20 14:00 Resp 16 06/20/20 14:00 BP 98/67 06/20/20 14:00 Pulse Ox 99 06/20/20 14:00 Intake & Output 06/19/20 06/20/20 06/20/20 18:59 06:59 18:59 Intake Total 994.837 671.9 362.526 Output Total 605 1075 565 Balance 389.837 -403.1 -202.474 Weight 76 kg 76 kg Intake: IV 822.5 671.9 264.2 0.9 NaCl 70 10 120 DOBUTamine DRIP 500 mg In 52.5 61.9 22.6 Dextrose/Water 1 250ml. bag @ 2.5 MCG/KG/MIN 5. 438 mls/hr IV .Q24H TI Rx#:[id number] Dextrose 5% in Water 1, 700 600 100 000 ml @ 50 mls/hr IV . Q23H TI with Sodium Bicarb (1 Meq/ml) 150 ml Rx#:[id number] dobutamine 21.6 Intake, IV Titration 102.337 98.326 Amount DOBUTamine DRIP 500 mg In 102.337 98.326 Dextrose/Water 1 250ml. bag @ 2.5 MCG/KG/MIN 5. 438 mls/hr IV .Q24H TI Rx#:[id number] Oral 70 Output: Urine 605 1075 565 Other: Voiding Method Indwelling Catheter Indwelling Catheter Indwelling Catheter # Voids 1 - Exam PHYSICAL EXAMINATION: GENERAL: The patient is alert and oriented x3, not in any acute distress. Well developed, well nourished. HEENT: Pupils are round and equally reacting to light. EOMI. No scleral icterus. No conjunctival pallor. Normocephalic, atraumatic. No pharyngeal erythema. No thyromegaly. CARDIOVASCULAR: S1 and S2 present. No murmurs, rubs, or gallops. PULMONARY: Chest is clear to auscultation, no wheezing, there may be mild bibasilar crackles ABDOMEN: Soft, nontender, nondistended, normoactive bowel sounds. No palpable organomegaly. MUSCULOSKELETAL: No joint swelling or deformity. EXTREMITIES: No cyanosis, clubbing, or pedal edema. NEUROLOGICAL: Gross neurological examination did not reveal any focal deficits. SKIN: No rashes. - Labs CBC & Chem 7: 06/20/20 07:24 06/20/20 07:24 Labs: Abnormal Lab Results - Last 24 Hours (Table) 06/20/20 06/20/20 Range/Units 07:24 07:24 RBC 3.77 L (4.30-5.90) m/uL Hgb 8.9 L (13.0-17.5) gm/dL Hct 29.1 L (39.0-53.0) % MCV 77.2 L (80.0-100.0) fL MCH 23.5 L (25.0-35.0) pg MCHC 30.5 L (31.0-37.0) g/dL RDW 19.0 H (11.5-15.5) % Plt Count 146 L (150-450) k/uL BUN 85 H (9-20) mg/dL Creatinine 2.53 H (0.66-1.25) mg/dL Glucose 123 H (74-99) mg/dL Calcium 7.9 L (8.4-10.2) mg/dL AST 132 H (17-59) U/L ALT 78 H (4-49) U/L Alkaline Phosphatase 154 H (38-126) U/L Assessment and Plan Plan: -Encephalopathy: Possibility of uremic encephalopathy patient is presently on dobutamine drip nephrology is following the patient and patient is on sodium bicarbonate drip because of her severe metabolic acidosis from a acute renal failure, encephalopathy improved and metabolic acidosis improved, encephalopathy due to AV improved but patient is still having delirium and sundowners due to hospitalization., Seroquel as needed as mentioned above -Anion metabolic acidosis: Secondary to lactic acidosis and uremia, improved now -Acute renal failure: He appears to be prerenal azotemia from hypotension, congestive heart failure. Improved with dobutamine. 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 -Lactic is doses probably decrease organ perfusion from intravascular hypovolemia -Severe pulmonary hypertension -Elevated BNP patient has chronically elevated BNP around this level -hypertension -hyperlipidemia -Atrial fibrillation proximal presently rate controlled patient is presently not on any anticoagulation not on anti-coagulation at this -Anemia of chronic kidney disease -Coronary artery disease -DVT prophylaxis with subcutaneous heparin
--- NOTE | 2020-06-20 15:51 | PN ---
PROGRESS NOTE Patient is seen for followup for acute kidney injury associated mostly with cardiorenal syndrome and hypotension. Renal function has been improving. Patient is maintained on dobutamine drip. The bicarb drip is now discontinued. Patient remains confused, although his mentation is significantly improved. Nursing staff suggests possible sundowning. PHYSICAL EXAMINATION: Blood pressure this morning was 93/66. Patient is afebrile. Heart rate 89 per minute. EXAMINATION OF THE HEART: S1 and S2. EXAMINATION OF LUNGS: Bilateral breath sounds are heard. ABDOMEN: Soft, non-tender. Examination of lower extremities shows no evidence of edema. NEWBORN PHOTOGRAPHER exam shows patient is moving all 4 extremities. He is currently sleeping but arousable. LABS: Labs show hemoglobin 8.9 g/dL, sodium 141, potassium 3.6, BUN 85, serum creatinine 2.53. ASSESSMENT: 1. Acute kidney injury, cardiorenal and secondary to hypotension, hypoperfusion, currently significantly improved. Patient remains on dobutamine, which will likely be discontinued tomorrow. 2. Anion gap metabolic acidosis associated with renal failure, lactic acidosis, now improved. 3. Hyperkalemia associated with acute kidney injury and acidosis, now improved. 4. Chronic kidney disease, stage 3, with previous creatinine about 1.9 to 2 mg/dL secondary to nephrosclerosis. 5. Cardiomyopathy, ejection fraction 20% to 25%, currently not in significant heart failure. PLAN: Continue to hold off on Lasix. May discontinue the dobutamine tomorrow. Avoid hypotension. Continue with midodrine and continue off of sodium bicarb for now. MMODL / IJN: [id number] /
[2020-06-20] MEDS: ATORVASTATIN 80 MG TAB PO SCH ×3 (17:46→21:58)
[2020-06-21] MEDS: LORATADINE 10 MG TAB PO SCH (05:16)
[2020-06-21] MEDS: METOPROLOL SUCCINATE (ER) 50 MG TAB.ER.24H PO SCH (05:17)
[2020-06-21] MEDS: oxyCODONE-APAP 5-325MG 1 EACH TAB PO PRN ×2 (06:05→20:35)
[2020-06-21 07:07] LABS: Anisocytosis Slight; HCT 28.6 % (39.0-53.0); HGB 8.3 gm/dL (13.0-17.5); Hypochromasia Marked; MCH 22.4 pg (25.0-35.0); MCHC 29.1 g/dL (31.0-37.0); Mean Platelet Volume 9.5; Microcytosis Slight; Platelet Count 130 k/uL (150-450); Poikilocytosis Slight; RBC 3.71 m/uL (4.30-5.90); RDW 19.1 % (11.5-15.5); WBC 6.1 k/uL (3.8-10.6)
[2020-06-21 07:14] LABS: Albumin 3.4 g/dL (3.5-5.0); Calcium 8.4 mg/dL (8.4-10.2); Potassium 3.5 mmol/L (3.5-5.1); Total Bilirubin 1.2 mg/dL (0.2-1.3); Total Protein 6.7 g/dL (6.3-8.2)
[2020-06-21] MEDS: TICAGRELOR 90 MG TAB PO SCH ×2 (08:17→17:25)
[2020-06-21] MEDS: MIDODRINE 5 MG TAB PO SCH ×3 (08:17→17:25)
[2020-06-21] MEDS: PANTOPRAZOLE 40 MG TABLET PO SCH ×2 (08:17→17:25)
[2020-06-21] MEDS: SODIUM CHLORIDE 0.9% 1,000 ML IV SCH (09:18)
[2020-06-21] MEDS: DOBUTamine DRIP 500 MG in DEXTROSE/WATER 1 250ML.BAG IV SCH (12:00)
--- NOTE | 2020-06-21 12:53 | P.PN ---
Subjective Progress Note Date: 06/21/20 This is a 74-year-old male patient with an extensive cardiac disease and coronary artery disease and CHF with impaired LV function with an ejection fraction of 20-25% home of asked to see because of shortness of breath. The patient is known to have COPD which is mild and based on previous spirometry fro 2015 his FEV1 was in order of 80% of predicted is not oxygen dependent. He has chronic kidney disease. His baseline creatinine is around 1.8. He has prostate enlargement and the patient does self-catheterization at home. Recently he has been noted to have urinary incontinence and dribbling without any dysuria or any change in the color or characteristics of urine. No hematuria. He has noted some change in the urine output and for that reason he decided to come in. In the emergency did complain of some shortness of breath. He was also complaining of generalized weakness. It was noted that his creatinine was up to 3.5. Based on that the patient was admitted to the hospital. He is currently being given IV fluids with normal saline at the rate of 80 mL an hour. He has no fever. No chills. No hemoptysis no pleurisy. His chest x-ray showing cardiomegaly without any acute abnormalities. CAT scan of the brain was done in the ED and the patient has cerebral atrophy. No acute abnormalities. The patient also has no edema in the lower extremities. His room air pulse ox was 96%. He was placed on 2 L of oxygen by nasal cannula. On 06/17/2020 patient seen in follow-up on selective care unit, he is awake and alert, in no acute distress, he states he still short of breath, but does not appear to be in any acute respiratory distress, he remains on 2 L of oxygen the pulse ox of 97-100%. No fever or chills, blood pressure is 100/69, blood pressure has been stable over last 24 hours nevertheless patient's lactic acid remains elevated, was 5.9 last night, patient continues on gentle IV hydration with 0.9 normal saline at a rate of 80 ML per hour, this morning lactic acid is 3.7, sodium is 1:30, potassium is 5.0, chloride is 102, CO2 17, BUN of 86, creatinine is 4.76. Yesterday we had a nurse place indwelling catheter, Palomares catheter remains in place, urinalysis showed 1+ ketones, small amount of leuk trase, 13 of white blood cells, urine culture was sent and is pending at this time. Renal profile has been worsening, nephrology consultation has been obtained, patient remains on midodrine for chronic hypotension 06/18/2000 and answering the patient for a follow-up. Compared to yesterday, the patient is much more lethargic and sleepy. I noted that overnight the patient became hypotensive. He was started on midodrine. Subsequently, his urine output dropped and this morning the patient was started on dobutamine infusion considering that his hypotension and renal failure is related to cardiorenal factors. As mentioned earlier, the patient has multivessel coronary artery disease and severe cardiomyopathy with an EF around 20-25%. His IV fluids has been cut down to 40 she is an hour. Based on that, I transferred this patient to the intensive care unit. A blood gas was done that showed a pH of 7.32 with a pCO2 of 26 and pO2 117. This is consistent with underlying metabolic acidosis. The serum bicarbonate of 14. The anion gap is at 17. La ctic acid level is down to 3.7. His BUN is up to 107 with a creatinine of 5.14 consistent with an acute on top of chronic kidney disease/failure. Sodium level is at 138. Potassium level is at 5.4. He has a Palomares catheter in place. Urine output is quite diminished. Discussed the case with nephrology. The patient be transferred to the intensive care unit for further evaluation and treatment. I was informed that he has a full CODE STATUS for now. 06/19/2020, the patient is being seen for a follow-up. He got transferred to the intensive care unit because of development of acute on chronic kidney injury. The patient's creatinine was on the rise. The patient was started on dobutamine to augment cardiac output at a dose of 2.5 g per KG per minute. The patient was also started on bicarbonate drip and today's bicarb level is up to 21. Clinically improved. His much more awake and alert. He is following commands. He is a bit angry and he wants to leave the hospital and go home. I think there may be a component of confusion also. Overall, he needs to be much more alert and awake and interactive compared to yesterday. The patient'srenal function and urine output is improved. Creatinineis down to 4.07 and the BUN is at 104. The rest of theelectrolytes are all within normal limits. The patient is not having any significant cardiac arrhythmias. He was having borderline low blood pressure and he was started on Midrin. He did not require any pressors. Furthermore, the dobutamine did not cause any significant drop in his blood pressure. He remains afebrile.the chest x-ray from today shows a new airspace disease in the lower lobe compared to yesterday. There is cardiomegaly.I doubt this is related to pneumonia and I think this is related toand he is producing a round 50-75 mL an hour on an hourly basis over this past 8 hours. nephrology services on the case. 06/20/2020, I'm seeing the patient for a follow-up. Patient is doing much better compared to yesterday. The patient has been hemodynamically stable on dobutamine 2.5 g per KG per minute. This augmented his cardiac output and the patient renal function is improved and the patient is producing better urine output for now.the patient's creatinine is down to 2.53 and the patient is producing adequate amount of urine output. Potassium level is at 3.6. Serum bicarb is 26.the white cell count is at 7.3 with a hemoglobin of 8.9. The chest x-ray showing some hazy infiltration of the right lung base along with some possible pleural effusion. His mental status improved. Overnight he became a b it more confused and restless and agitated. This improved in the manager administrative hours and he is currently appropriate for now. Is tolerating his diet. No cardiac arrhythmias have been noted. No hypotension. Nephritis on the case. Cardiology is also on the case.also, the patient's serum bicarb is improved and septal 26. 06/21/2020, the patient continues to improve. He remains on dobutamine at 2.5 g per KG per minute. He is also normal state rate of 20 mL's an hour. He is on 3 L of oxygen by nasal cannula. Urine output is adequate and the patient has improvement in the creatinine which is down to 1.79. No altered mentation. The rhythm is sinus. Note that he has carotid myopathy with an ejection fraction of 20-25%. No confusion on today's evaluation. Onset of the 25 mg at bedtime. The rest of the medications are unchanged. No hypotension. No fever. No chills. No other significant events overnight. We have kept him on dobutamine for another 24 hours. May consider diuresis and the final decision will be left up to nephrology. Objective - Vital Signs Vital signs: Vital Signs Temp 98.1 F 06/21/20 04:00 Pulse 71 06/21/20 07:00 Resp 16 06/21/20 07:00 BP 102/66 06/21/20 07:00 Pulse Ox 100 06/21/20 07:00 Intake & Output 06/20/20 06/21/20 06/21/20 18:59 06:59 18:59 Intake Total 464.126 304.8 131.257 Output Total 765 1075 75 Balance -300.874 -770.2 56.257 Weight 76 kg 75.4 kg Intake: IV 365.8 304.8 25.4 0.9 NaCl 200 240 20 DOBUTamine DRIP 500 mg In 22.6 Dextrose/Water 1 250ml. bag @ 2.5 MCG/KG/MIN 5. 438 mls/hr IV .Q24H TI Rx#:[id number] Dextrose 5% in Water 1, 100 000 ml @ 50 mls/hr IV . Q23H TI with Sodium Bicarb (1 Meq/ml) 150 ml Rx#:[id number] dobutamine 43.2 64.8 5.4 Intake, IV Titration 98.326 105.857 Amount DOBUTamine DRIP 500 mg In 98.326 105.857 Dextrose/Water 1 250ml. bag @ 2.5 MCG/KG/MIN 5. 438 mls/hr IV .Q24H TI Rx#:[id number] Output: Urine 765 1075 75 Other: Voiding Method Indwelling Catheter Indwelling Catheter - Exam GENERAL EXAM: Alert, very pleasant, 74-year-old white male, on 2 L of oxygen, with pulse ox of 97%, the patient is calm and comfortable and the patient is not using accessory muscles of breathing. He is interacting. His communicating. He keeps on saying that he wants to go home. HEAD: Normocephalic/atraumatic. EYES: Normal reaction of pupils, equal size. Conjunctiva pink, sclera white. NOSE: Clear with pink turbinates. THROAT: No erythema or exudates. NECK: No masses, no JVD, no thyroid enlargement, no adenopathy. CHEST: No chest wall deformity. Symmetrical expansion. LUNGS: Equal air entry with no crackles, wheeze, rhonchi or dullness. CVS: Regular rate and rhythm, normal S1 and S2, no gallops, no murmurs, no rubs ABDOMEN: Soft, nontender. No hepatosplenomegaly, normal bowel sounds, no guarding or rigidity. EXTREMITIES: No clubbing, no edema, no cyanosis, 2+ pulses and upper and lower extremities. MUSCULOSKELETAL: Muscle strength and tone normal. SPINE: No scoliosis or deformity SKIN: No rashes CENTRAL NERVOUS SYSTEM: alert and awake and communicating. At times confused. No focal neurological deficit at this point in time. PSYCHIATRIC: Alert and oriented -3. Appropriate affect. Intact judgment and insight. - Labs CBC & Chem 7: 06/21/20 06:34 06/21/20 06:34 Labs: Abnormal Lab Results - Last 24 Hours (Table) 06/21/20 06/21/20 Range/Units 06:34 06:34 RBC 3.71 L (4.30-5.90) m/uL Hgb 8.3 L (13.0-17.5) gm/dL Hct 28.6 L (39.0-53.0) % MCV 77.0 L (80.0-100.0) fL MCH 22.4 L (25.0-35.0) pg MCHC 29.1 L (31.0-37.0) g/dL RDW 19.1 H (11.5-15.5) % Plt Count 130 L (150-450) k/uL BUN 64 H (9-20) mg/dL Creatinine 1.79 H (0.66-1.25) mg/dL Glucose 106 H (74-99) mg/dL AST 96 H (17-59) U/L ALT 66 H (4-49) U/L Alkaline Phosphatase 140 H (38-126) U/L Albumin 3.4 L (3.5-5.0) g/dL Assessment and Plan Plan: 1 chronic dyspnea, multifactorial and chronic.the patient's overall shortness of breath is improved. 2 acute on chronic kidney disease. Baseline renal function is consistent with stage IV kidney disease/failure. the renal function improved with dobutamine and the patient continues to improve in the creatinine is 1.79 along with adequate urine output. This is related to cardiorenal factors which is improving with use of dobutamine. 3 CHF with an ejection fraction of 20-25% secondary pulmonary hypertension 4 coronary artery disease with extensive multivessel disease with previous stenting of the LAD. The patient was investigated and declined for bypass surgery back in 2016 due to comorbidities. 5 chronic atrial fibrillation, not on anticoagulants 6 anemia of chronic disease 7 lactic acidosis, improving 8 BPH and chronic obstructive uropathy. The patient performs self- catheterization. Patient also has chronic kidney disease stage 3-4 disease 9 degenerative disc disease involving the lumbar spine 10 chronic cerebral atrophy and along with a component of dementia 11 hyperlipidemia 12 hypertension 13 history of recurrent falls and gait dysfunction secondary to comorbidities 14 hypotensive, improved and patient is currently on midodrine 15 anion gap metabolic acidosis improved and bicarb infusion 16 altered mentation secondary to above. This is related to metabolic factors.mental status is improved and the patient is back to his baseline. At times he is having delirium and he was started on Seroquel 25 mg at bedtime. Plan recommend continuing the dobutamine at a dose of 2.5 g per KG per minute for another 24 hours Monitor the blood pressure utilize norepinephrine infusion if needed chest x-ray to be done tomorrow. He may have some small right-sided pleural effusion. monitor the renal function and urine output. the renal function continues to improve. Creatinine is down to 1.79 Nephrology is on the case.consider diuretics mentally the patient is improved. He is having some occasional delirium overnight. Currently is alert and awake. We'll continue to follow.
--- NOTE | 2020-06-21 12:54 | P.PN ---
Subjective Progress Note Date: 06/21/20 CHIEF COMPLAINT: Heart failure HISTORY OF PRESENT ILLNESS: Patient examined at the bedside. He denies chest pain. Denies short of breath. He remains on dobutamine. Fluid balance of -1 L over the last 24 hours. Creatinine 1.79 today. PHYSICAL EXAM: VITAL SIGNS: Reviewed. GENERAL: Well-developed in no acute distress. NECK: Supple. No JVD or thyromegaly LUNGS: Respirations even and unlabored. Lungs essentially clear to auscultation bilaterally. HEART: Regular rate and rhythm. S1 and S2 heard. EXTREMITIES: Normal range of motion. No clubbing or cyanosis. Peripheral pulses intact. No lower extremity edema ASSESSMENT: Chronic systolic heart failure, EF 20-25% Acute on chronic kidney disease PLAN: Continue IV dobutamine for an additional 24 hours We will possibly resume oral Lasix tomorrow Monitor kidney function Nurse practitioner note has been reviewed by physician. Signing provider agrees with the documented findings, assessment, and plan of care. Objective - Vital Signs Vital signs: Vital Signs Temp 98.1 F 06/21/20 04:00 Pulse 71 06/21/20 07:00 Resp 16 06/21/20 07:00 BP 102/66 06/21/20 07:00 Pulse Ox 100 06/21/20 07:00 Intake & Output 06/20/20 06/21/20 06/21/20 18:59 06:59 18:59 Intake Total 464.126 304.8 131.257 Output Total 765 1075 75 Balance -300.874 -770.2 56.257 Weight 76 kg 75.4 kg Intake: IV 365.8 304.8 25.4 0.9 NaCl 200 240 20 DOBUTamine DRIP 500 mg In 22.6 Dextrose/Water 1 250ml. bag @ 2.5 MCG/KG/MIN 5. 438 mls/hr IV .Q24H TI Rx#:[id number] Dextrose 5% in Water 1, 100 000 ml @ 50 mls/hr IV . Q23H TI with Sodium Bicarb (1 Meq/ml) 150 ml Rx#:[id number] dobutamine 43.2 64.8 5.4 Intake, IV Titration 98.326 105.857 Amount DOBUTamine DRIP 500 mg In 98.326 105.857 Dextrose/Water 1 250ml. bag @ 2.5 MCG/KG/MIN 5. 438 mls/hr IV .Q24H [facility] Rx#:[id number] Output: Urine 765 1075 75 Other: Voiding Method Indwelling Catheter Indwelling Catheter - Labs CBC & Chem 7: 06/21/20 06:34 06/21/20 06:34 Labs: Abnormal Lab Results - Last 24 Hours (Table) 06/21/20 06/21/20 Range/Units 06:34 06:34 RBC 3.71 L (4.30-5.90) m/uL Hgb 8.3 L (13.0-17.5) gm/dL Hct 28.6 L (39.0-53.0) % MCV 77.0 L (80.0-100.0) fL MCH 22.4 L (25.0-35.0) pg MCHC 29.1 L (31.0-37.0) g/dL RDW 19.1 H (11.5-15.5) % Plt Count 130 L (150-450) k/uL BUN 64 H (9-20) mg/dL Creatinine 1.79 H (0.66-1.25) mg/dL Glucose 106 H (74-99) mg/dL AST 96 H (17-59) U/L ALT 66 H (4-49) U/L Alkaline Phosphatase 140 H (38-126) U/L Albumin 3.4 L (3.5-5.0) g/dL
--- NOTE | 2020-06-21 14:38 | P.PN ---
Subjective She is admitted for generalized weakness. Patient is found to have acute renal failure patient was receiving IV fluids. Patient does have a cut his heart failure EF of around 20-25%. Patient declined to take any medications declined any blood tests. Patient was on 80 mL of normal saline but when I saw his own receiving 40 mL still complaining of shortness of breath which appeared to be chronic clinically still doesn't appear to be in heart failure exacerbation I ordered a chest x-ray after extensive counseling and spending quite a bit of time with the patient counseling her the patient patient is agreeable to get the blood draw. Patient's serum creatinine was around 3.5 yesterday. Nothing available from today 06/18/2020 Patient's creatinine continued to get worse and the presently 5.14. Patient lactic acidosis although improved patient became more confused patient was subsequently transferred to ICU patient potassium went up to 5.4. Patient is being started on dobutamine drip and the patient is also on the sodium bicarbonate IV drip. Patient has rhonchi bilaterally. Pulmonology and nephrology are following the patient. Patient had an ABG which showed severe metabolic acidosis. Patient appears to have uremic encephalopathy 06/19/2020 Patient is more awake and alert and oriented 3 today does have some bibasilar crackles and exam. Chest x-ray did not show any significant abnormality patient says bicarbonate was decreased to 50 and patient is presently on dobutamine drip with improving creatinine, lactic acid was not obtained today. Patient in supplement improved now patient is complaining of fatigue and the discomfort in the left upper abdomen 06/20/2020 Patient overall has significant improvement patient remains on dobutamine 2.5 mcg/kg/m. Patient's serum creatinine is improving came down to 2.53. Patient urine output is better patient was having sundowners and is getting agitated at nighttime patient was started on Seroquel for that of Zyprexa Zydis for that. Patient is also on Percocet every 4 hours the frequency of which will be cut down to every 8 hours hourly patient received Percocet only once today. 06/21/2020 Intake is still on dobutamine patient can use to have improvement in his creatinine presently in 3-7 oxygen patient has good urine output at this time patient present creatinine is 1.79. Constitutional: Does have fatigue Cardio vascular: denied any chest pain, palpitations Gastrointestinal denied any nausea vomiting Pulmonary: Orly for shortness of breath Neurologic denied any new focal deficits All inpatient medications were reviewed and appropriate changes in these medications as dictated in the interval history and assessment and plan. Objective - Vital Signs Vital signs: Vital Signs Temp 98 F 06/21/20 12:00 Pulse 58 L 06/21/20 14:00 Resp 15 06/21/20 14:00 BP 82/71 06/21/20 14:00 Pulse Ox 98 06/21/20 14:00 Intake & Output 06/20/20 06/21/20 06/21/20 18:59 06:59 18:59 Intake Total 464.126 304.8 549.757 Output Total 765 1075 425 Balance -300.874 -770.2 124.757 Weight 76 kg 75.4 kg Intake: IV 365.8 304.8 203.9 0.9 NaCl 200 240 160 DOBUTamine DRIP 500 mg In 22.6 Dextrose/Water 1 250ml. bag @ 2.5 MCG/KG/MIN 5. 438 mls/hr IV .Q24H TI Rx#:[id number] Dextrose 5% in Water 1, 100 000 ml @ 50 mls/hr IV . Q23H TI with Sodium Bicarb (1 Meq/ml) 150 ml Rx#:[id number] dobutamine 43.2 64.8 43.9 Intake, IV Titration 98.326 105.857 Amount DOBUTamine DRIP 500 mg In 98.326 105.857 Dextrose/Water 1 250ml. bag @ 2.5 MCG/KG/MIN 5. 438 mls/hr IV .Q24H TI Rx#:[id number] Oral 240 Output: Urine 765 1075 425 Other: Voiding Method Indwelling Catheter Indwelling Catheter # Voids 1 - Exam PHYSICAL EXAMINATION: GENERAL: The patient is alert and oriented x3, not in any acute distress. Well developed, well nourished. HEENT: Pupils are round and equally reacting to light. EOMI. No scleral icterus. No conjunctival pallor. Normocephalic, atraumatic. No pharyngeal erythema. No thyromegaly. CARDIOVASCULAR: S1 and S2 present. No murmurs, rubs, or gallops. PULMONARY: Chest is clear to auscultation, no wheezing, there may be mild bibasilar crackles ABDOMEN: Soft, nontender, nondistended, normoactive bowel sounds. No palpable organomegaly. MUSCULOSKELETAL: No joint swelling or deformity. EXTREMITIES: No cyanosis, clubbing, or pedal edema. NEUROLOGICAL: Gross neurological examination did not reveal any focal deficits. SKIN: No rashes. - Labs CBC & Chem 7: 06/21/20 06:34 06/21/20 06:34 Labs: Abnormal Lab Results - Last 24 Hours (Table) 06/21/20 06/21/20 Range/Units 06:34 06:34 RBC 3.71 L (4.30-5.90) m/uL Hgb 8.3 L (13.0-17.5) gm/dL Hct 28.6 L (39.0-53.0) % MCV 77.0 L (80.0-100.0) fL MCH 22.4 L (25.0-35.0) pg MCHC 29.1 L (31.0-37.0) g/dL RDW 19.1 H (11.5-15.5) % Plt Count 130 L (150-450) k/uL BUN 64 H (9-20) mg/dL Creatinine 1.79 H (0.66-1.25) mg/dL Glucose 106 H (74-99) mg/dL AST 96 H (17-59) U/L ALT 66 H (4-49) U/L Alkaline Phosphatase 140 H (38-126) U/L Albumin 3.4 L (3.5-5.0) g/dL Assessment and Plan Plan: -Encephalopathy: Possibility of uremic encephalopathy patient is presently on dobutamine drip nephrology is following the patient and patient is on sodium bicarbonate drip because of her severe metabolic acidosis from a acute renal failure, encephalopathy improved and metabolic acidosis improved, encephalopathy due to AV improved but patient is still having delirium and sundowners due to hospitalization., Seroquel as needed as mentioned above -Anion metabolic acidosis: Secondary to lactic acidosis and uremia, improved now -Acute renal failure: He appears to be prerenal azotemia from hypotension, congestive heart failure. Improved with dobutamine. 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 -Lactic is doses probably decrease organ perfusion from intravascular hy povolemia -Severe pulmonary hypertension -Elevated BNP patient has chronically elevated BNP around this level -hypertension -hyperlipidemia -Atrial fibrillation proximal presently rate controlled patient is presently not on any anticoagulation not on anti-coagulation at this -Anemia of chronic kidney disease -Coronary artery disease -DVT prophylaxis with subcutaneous heparin
--- NOTE | 2020-06-21 15:19 | PN ---
PROGRESS NOTE Patient is seen for followup for acute kidney injury. He is awake, comfortable, not in any acute distress. Again, stating that he wants to go home. The patient's renal function has improved significantly with dobutamine. His creatinine is down to 1.79. He has had good urine output. PHYSICAL EXAMINATION: On examination, patient is awake, comfortable, not in any acute distress. Blood pressure was 102/66, heart rate 71 per minute, he is afebrile. Examination of the heart S1, S2. Examination of the lungs, bilateral breath sounds are heard. Abdomen is soft, nontender. Examination of lower extremities shows no significant edema. TATTOO TECHNICIAN exam shows patient is moving all four extremities. LAB: Show sodium 143, potassium 3.5, chloride 107, BUN 64, serum creatinine 1.79, hemoglobin 8.3 g/dL. ASSESSMENT: 1. Acute kidney injury, cardiorenal and secondary to hypotension, currently significantly improved. May discontinue the dobutamine. 2. Anion gap metabolic acidosis associated with renal failure and lactic acidosis, now improved. 3. Hyperkalemia associated with acute kidney injury and metabolic acidosis, now resolved. 4. Chronic kidney disease stage 3 with previous creatinine 1.9-2 mg/dL secondary to nephrosclerosis. 5. Cardiomyopathy, ejection fraction 20-25%, currently not in heart failure. PLAN: May DC the dobutamine. Blood pressure remains low, therefore, I will continue with the midodrine. Repeat labs in a.m. MMGAVINL / JUAQUINN: [id number] /
[2020-06-21] MEDS: ATORVASTATIN 80 MG TAB PO SCH (17:25)
[2020-06-21] MEDS: ALPRAZolam 0.25 MG TAB PO PRN (20:33)
[2020-06-22] MEDS: METOPROLOL SUCCINATE (ER) 50 MG TAB.ER.24H PO SCH (06:04)
[2020-06-22] MEDS: LORATADINE 10 MG TAB PO SCH (06:04)
[2020-06-22] MEDS: TICAGRELOR 90 MG TAB PO SCH ×2 (06:04→17:32)
[2020-06-22] MEDS: PANTOPRAZOLE 40 MG TABLET PO SCH ×2 (06:04→17:31)
[2020-06-22] MEDS: oxyCODONE-APAP 5-325MG 1 EACH TAB PO PRN ×2 (06:09→18:43)
[2020-06-22] MEDS: ALPRAZolam 0.25 MG TAB PO PRN (06:10)
[2020-06-22 06:26] LABS: Anisocytosis Slight; HCT 27.5 % (39.0-53.0); HGB 8.2 gm/dL (13.0-17.5); Hypochromasia Marked; MCHC 29.7 g/dL (31.0-37.0); MCV 77.4 fL (80.0-100.0); Mean Platelet Volume 9.4; Microcytosis Slight; Platelet Count 150 k/uL (150-450); Poikilocytosis Slight; RBC 3.55 m/uL (4.30-5.90); RDW 19.2 % (11.5-15.5); WBC 5.9 k/uL (3.8-10.6)
[2020-06-22 06:34] LABS: Calcium 8.7 mg/dL (8.4-10.2); Potassium 3.8 mmol/L (3.5-5.1)
[2020-06-22] MEDS: MIDODRINE 5 MG TAB PO SCH ×3 (07:42→17:31)
[2020-06-22] MEDS: SODIUM CHLORIDE 0.9% 1,000 ML IV SCH (07:43)
[2020-06-22] MEDS ORDERED: POTASSIUM CHLORIDE ER 20 MEQ TAB.ER PO SCH (08:00)
--- NOTE | 2020-06-22 09:00 | XR ---
EXAMINATION TYPE: XR chest 1V portable DATE OF EXAM: 06/22/2020 COMPARISON: Prior chest x-ray 06/20/2020 HISTORY: Adventitious lung sounds, difficulty breathing TECHNIQUE: Single frontal view of the chest is obtained. FINDINGS: There is opacity at the lung bases obscuring the hemidiaphragms. Heart is enlarged. No mayank dent pneumothorax. There are overlying cardiac leads. Aorta is dense. Interstitium is prominent. IMPRESSION: Findings suggest progression in pleural effusions, correlate for possible interstitial e jhoan and congestive heart failure. Cardiomegaly.
[2020-06-22] MEDS ORDERED: FUROSEMIDE 10 MG/ML 4 ML VIAL IV STA (09:43)
[2020-06-22] MEDS: DOBUTamine DRIP 500 MG in DEXTROSE/WATER 1 250ML.BAG IV SCH (10:15)
--- NOTE | 2020-06-22 10:19 | PN ---
PROGRESS NOTE Patient is seen for followup for acute kidney injury, mostly cardiorenal and secondary to hypotension. Patient is maintained on dobutamine. His renal function has improved significantly. PHYSICAL EXAMINATION: On examination, his blood pressure was 98/64, heart rate 81 per minute, he is afebrile. Examination of the heart S1, S2. Examination of the lungs, bilateral breath sounds are heard. Abdomen is soft, nontender. Examination of lower extremities shows no significant edema. [employer] exam grossly intact. LAB: Show sodium 141, potassium 3.8, CO2 is 31, BUN 44, creatinine 1.54, hemoglobin 8.2 g/dL. ASSESSMENT: 1. Acute kidney injury, cardiorenal as well as secondary to hypotension, currently significantly improved. May continue with the midodrine as blood pressure remains low and we can discontinue the dobutamine. 2. Metabolic acidosis, now resolved. 3. Hyperkalemia associated with acute kidney injury and metabolic acidosis, currently resolved. 4. Chronic kidney disease stage 3 with previous creatinine 1.9-2 mg/dL secondary to nephrosclerosis. 5. Cardiomyopathy, ejection fraction 20% to 25%, currently not in heart failure. PLAN: May DC the dobutamine. Continue with the midodrine for now. Repeat labs in a.m. MMODL / IJN: [id number] /
--- NOTE | 2020-06-22 12:14 | P.PN ---
Subjective Progress Note Date: 06/22/20 CHIEF COMPLAINT: Heart failure HISTORY OF PRESENT ILLNESS: Patient examined at the bedside. He denies chest pain. Denies short of breath. He remains on dobutamine. Chest x-ray this morning reveals progression of pleural effusions. PHYSICAL EXAM: VITAL SIGNS: Reviewed. GENERAL: Well-developed in no acute distress. NECK: Supple. No JVD or thyromegaly LUNGS: Respirations even and unlabored. Lungs diminished. HEART: Regular rate and rhythm. S1 and S2 heard. EXTREMITIES: Normal range of motion. No clubbing or cyanosis. Peripheral pulses intact. No lower extremity edema ASSESSMENT: Chronic systolic heart failure, EF 20-25% Acute on chronic kidney disease PLAN: Per nursing, patient to receive a dose of IV lasix per pulmonary and continue dobutamine. From a cardiac standpoint, the dobutamine may be discontinued but will defer to ICU management if they wish for it to continue. Monitor kidney function Nurse practitioner note has been reviewed by physician. Signing provider agrees with the documented findings, assessment, and plan of care. Objective - Vital Signs Vital signs: Vital Signs Temp 97 F L 06/22/20 08:00 Pulse 81 06/22/20 08:00 Resp 11 L 06/22/20 08:00 BP 98/64 06/22/20 08:00 Pulse Ox 93 L 06/22/20 08:00 Intake & Output 06/21/20 06/22/20 06/22/20 18:59 06:59 18:59 Intake Total 877.257 280.5 144.962 Output Total 695 735 120 Balance 182.257 -454.5 24.962 Weight 73.6 kg Intake: IV 291.4 280.5 51.0 0.9 NaCl 220 220 40 dobutamine 71.4 60.5 11.0 Intake, IV Titration 105.857 93.962 Amount DOBUTamine DRIP 500 mg In 105.857 93.962 Dextrose/Water 1 250ml. bag @ 2.5 MCG/KG/MIN 5. 438 mls/hr IV .Q24H [facility] Rx#:[id number] Oral 480 Output: Urine 695 735 120 Other: Voiding Method Indwelling Catheter Indwelling Catheter Indwelling Catheter # Voids 1 1 - Labs CBC & Chem 7: 06/22/20 06:02 06/22/20 06:02 Labs: Abnormal Lab Results - Last 24 Hours (Table) 06/22/20 06/22/20 Range/Units 06:02 06:02 RBC 3.55 L (4.30-5.90) m/uL Hgb 8.2 L (13.0-17.5) gm/dL Hct 27.5 L (39.0-53.0) % MCV 77.4 L (80.0-100.0) fL MCH 23.0 L (25.0-35.0) pg MCHC 29.7 L (31.0-37.0) g/dL RDW 19.2 H (11.5-15.5) % Carbon Dioxide 31 H (22-30) mmol/L BUN 44 H (9-20) mg/dL Creatinine 1.54 H (0.66-1.25) mg/dL Glucose 132 H (74-99) mg/dL
--- NOTE | 2020-06-22 12:48 | P.PN ---
Subjective She is admitted for generalized weakness. Patient is found to have acute renal failure patient was receiving IV fluids. Patient does have a cut his heart failure EF of around 20-25%. Patient declined to take any medications declined any blood tests. Patient was on 80 mL of normal saline but when I saw his own receiving 40 mL still complaining of shortness of breath which appeared to be chronic clinically still doesn't appear to be in heart failure exacerbation I ordered a chest x-ray after extensive counseling and spending quite a bit of time with the patient counseling her the patient patient is agreeable to get the blood draw. Patient's serum creatinine was around 3.5 yesterday. Nothing available from today 06/18/2020 Patient's creatinine continued to get worse and the presently 5.14. Patient lactic acidosis although improved patient became more confused patient was subsequently transferred to ICU patient potassium went up to 5.4. Patient is being started on dobutamine drip and the patient is also on the sodium bicarbonate IV drip. Patient has rhonchi bilaterally. Pulmonology and nephrology are following the patient. Patient had an ABG which showed severe metabolic acidosis. Patient appears to have uremic encephalopathy 06/19/2020 Patient is more awake and alert and oriented 3 today does have some bibasilar crackles and exam. Chest x-ray did not show any significant abnormality patient says bicarbonate was decreased to 50 and patient is presently on dobutamine drip with improving creatinine, lactic acid was not obtained today. Patient in supplement improved now patient is complaining of fatigue and the discomfort in the left upper abdomen 06/20/2020 Patient overall has significant improvement patient remains on dobutamine 2.5 mcg/kg/m. Patient's serum creatinine is improving came down to 2.53. Patient urine output is better patient was having sundowners and is getting agitated at nighttime patient was started on Seroquel for that of Zyprexa Zydis for that. Patient is also on Percocet every 4 hours the frequency of which will be cut down to every 8 hours hourly patient received Percocet only once today. 06/21/2020 Intake is still on dobutamine patient can use to have improvement in his creatinine presently in 3-7 oxygen patient has good urine output at this time patient present creatinine is 1.79. 06/22/2020 Patient has bilateral pleural effusions patient was started on IV Lasix s ignificant urine output since Lasix. Patient remains on dobutamine drip. Patient creatinine continue to improve, presently 1.54 patient is awake alert and able to provide history Constitutional: Denied any fatigue denied any fever. Cardio vascular: denied any chest pain, palpitations Gastrointestinal denied any nausea vomiting Pulmonary: Denied any shortness of breath cough Neurologic denied any new focal deficits All inpatient medications were reviewed and appropriate changes in these medi cations as dictated in the interval history and assessment and plan. Objective - Vital Signs Vital signs: Vital Signs Temp 97 F L 06/22/20 08:00 Pulse 81 06/22/20 08:00 Resp 11 L 06/22/20 08:00 BP 98/64 06/22/20 08:00 Pulse Ox 93 L 06/22/20 08:00 Intake & Output 06/21/20 06/22/20 06/22/20 18:59 06:59 18:59 Intake Total 877.257 280.5 144.962 Output Total 695 735 120 Balance 182.257 -454.5 24.962 Weight 73.6 kg Intake: IV 291.4 280.5 51.0 0.9 NaCl 220 220 40 dobutamine 71.4 60.5 11.0 Intake, IV Titration 105.857 93.962 Amount DOBUTamine DRIP 500 mg In 105.857 93.962 Dextrose/Water 1 250ml. bag @ 2.5 MCG/KG/MIN 5. 438 mls/hr IV .Q24H [facility] Rx#:[id number] Oral 480 Output: Urine 695 735 120 Other: Voiding Method Indwelling Catheter Indwelling Catheter Indwelling Catheter # Voids 1 1 - Exam PHYSICAL EXAMINATION: GENERAL: The patient is alert and oriented x3, not in any acute distress. Well developed, well nourished. HEENT: Pupils are round and equally reacting to light. EOMI. No scleral icterus. No conjunctival pallor. Normocephalic, atraumatic. No pharyngeal erythema. No thyromegaly. CARDIOVASCULAR: S1 and S2 present. No murmurs, rubs, or gallops. PULMONARY:patient does have bibasilar crackles ABDOMEN: Soft, nontender, nondistended, normoactive bowel sounds. No palpable organomegaly. MUSCULOSKELETAL: No joint swelling or deformity. EXTREMITIES: No cyanosis, clubbing, or pedal edema. NEUROLOGICAL: Gross neurological examination did not reveal any focal deficits. SKIN: No rashes. - Labs CBC & Chem 7: 06/22/20 06:02 06/22/20 06:02 Labs: Abnormal Lab Results - Last 24 Hours (Table) 06/22/20 06/22/20 Range/Units 06:02 06:02 RBC 3.55 L (4.30-5.90) m/uL Hgb 8.2 L (13.0-17.5) gm/dL Hct 27.5 L (39.0-53.0) % MCV 77.4 L (80.0-100.0) fL MCH 23.0 L (25.0-35.0) pg MCHC 29.7 L (31.0-37.0) g/dL RDW 19.2 H (11.5-15.5) % Carbon Dioxide 31 H (22-30) mmol/L BUN 44 H (9-20) mg/dL Creatinine 1.54 H (0.66-1.25) mg/dL Glucose 132 H (74-99) mg/dL Assessment and Plan Plan: -bilateral pleural effusions: Seconded to CHF seizures gastro-dysfunction with acute exacerbation patient is presently on IV Lasix as well as dobutamine drip -Encephalopathy: Possibility of uremic encephalopathy improved mental status. -Anion metabolic acidosis: Secondary to lactic acidosis and uremia, improved now -Acute renal failure: He appears to be prerenal azotemia from hypotension, congestive heart failure. Improved with dobutamine. 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 -Lactic is doses probably decrease organ perfusion from intravascular hypovolemia -Severe pulmonary hypertension -Elevated BNP patient has chronically elevated BNP around this level -hypertension -hyperlipidemia -Atrial fibrillation proximal presently rate controlled patient is presently not on any anticoagulation not on anti-coagulation at this -Anemia of chronic kidney disease -Coronary artery disease -DVT prophylaxis with subcutaneous heparin
--- NOTE | 2020-06-22 12:55 | P.PN ---
Subjective Progress Note Date: 06/22/20 This is a 74-year-old male patient with an extensive cardiac disease and coronary artery disease and CHF with impaired LV function with an ejection fraction of 20-25% home of asked to see because of shortness of breath. The patient is known to have COPD which is mild and based on previous spirometry fro 2015 his FEV1 was in order of 80% of predicted is not oxygen dependent. He has chronic kidney disease. His baseline creatinine is around 1.8. He has prostate enlargement and the patient does self-catheterization at home. Recently he has been noted to have urinary incontinence and dribbling without any dysuria or any change in the color or characteristics of urine. No hematuria. He has noted some change in the urine output and for that reason he decided to come in. In the emergency did complain of some shortness of breath. He was also complaining of generalized weakness. It was noted that his creatinine was up to 3.5. Based on that the patient was admitted to the hospital. He is currently being given IV fluids with normal saline at the rate of 80 mL an hour. He has no fever. No chills. No hemoptysis no pleurisy. His chest x-ray showing cardiomegaly without any acute abnormalities. CAT scan of the brain was done in the ED and the patient has cerebral atrophy. No acute abnormalities. The patient also has no edema in the lower extremities. His room air pulse ox was 96%. He was placed on 2 L of oxygen by nasal cannula. On 06/17/2020 patient seen in follow-up on selective care unit, he is awake and alert, in no acute distress, he states he still short of breath, but does not appear to be in any acute respiratory distress, he remains on 2 L of oxygen the pulse ox of 97-100%. No fever or chills, blood pressure is 100/69, blood pressure has been stable over last 24 hours nevertheless patient's lactic acid remains elevated, was 5.9 last night, patient continues on gentle IV hydration with 0.9 normal saline at a rate of 80 ML per hour, this morning lactic acid is 3.7, sodium is 1:30, potassium is 5.0, chloride is 102, CO2 17, BUN of 86, creatinine is 4.76. Yesterday we had a nurse place indwelling catheter, Palomares catheter remains in place, urinalysis showed 1+ ketones, small amount of leuk trase, 13 of white blood cells, urine culture was sent and is pending at this time. Renal profile has been worsening, nephrology consultation has been obtained, patient remains on midodrine for chronic hypotension 06/18/2000 and answering the patient for a follow-up. Compared to yesterday, the patient is much more lethargic and sleepy. I noted that overnight the patient became hypotensive. He was started on midodrine. Subsequently, his urine output dropped and this morning the patient was started on dobutamine infusion considering that his hypotension and renal failure is related to cardiorenal factors. As mentioned earlier, the patient has multivessel coronary artery disease and severe cardiomyopathy with an EF around 20-25%. His IV fluids has been cut down to 40 she is an hour. Based on that, I transferred this patient to the intensive care unit. A blood gas was done that showed a pH of 7.32 with a pCO2 of 26 and pO2 117. This is consistent with underlying metabolic acidosis. The serum bicarbonate of 14. The anion gap is at 17. La ctic acid level is down to 3.7. His BUN is up to 107 with a creatinine of 5.14 consistent with an acute on top of chronic kidney disease/failure. Sodium level is at 138. Potassium level is at 5.4. He has a Palomares catheter in place. Urine output is quite diminished. Discussed the case with nephrology. The patient be transferred to the intensive care unit for further evaluation and treatment. I was informed that he has a full CODE STATUS for now. 06/19/2020, the patient is being seen for a follow-up. He got transferred to the intensive care unit because of development of acute on chronic kidney injury. The patient's creatinine was on the rise. The patient was started on dobutamine to augment cardiac output at a dose of 2.5 g per KG per minute. The patient was also started on bicarbonate drip and today's bicarb level is up to 21. Clinically improved. His much more awake and alert. He is following commands. He is a bit angry and he wants to leave the hospital and go home. I think there may be a component of confusion also. Overall, he needs to be much more alert and awake and interactive compared to yesterday. The patient'srenal function and urine output is improved. Creatinineis down to 4.07 and the BUN is at 104. The rest of theelectrolytes are all within normal limits. The patient is not having any significant cardiac arrhythmias. He was having borderline low blood pressure and he was started on Midrin. He did not require any pressors. Furthermore, the dobutamine did not cause any significant drop in his blood pressure. He remains afebrile.the chest x-ray from today shows a new airspace disease in the lower lobe compared to yesterday. There is cardiomegaly.I doubt this is related to pneumonia and I think this is related toand he is producing a round 50-75 mL an hour on an hourly basis over this past 8 hours. nephrology services on the case. 06/20/2020, I'm seeing the patient for a follow-up. Patient is doing much better compared to yesterday. The patient has been hemodynamically stable on dobutamine 2.5 g per KG per minute. This augmented his cardiac output and the patient renal function is improved and the patient is producing better urine output for now.the patient's creatinine is down to 2.53 and the patient is producing adequate amount of urine output. Potassium level is at 3.6. Serum bicarb is 26.the white cell count is at 7.3 with a hemoglobin of 8.9. The chest x-ray showing some hazy infiltration of the right lung base along with some possible pleural effusion. His mental status improved. Overnight he became a b it more confused and restless and agitated. This improved in the adult parole officer hours and he is currently appropriate for now. Is tolerating his diet. No cardiac arrhythmias have been noted. No hypotension. Nephritis on the case. Cardiology is also on the case.also, the patient's serum bicarb is improved and septal 26. 06/21/2020, the patient continues to improve. He remains on dobutamine at 2.5 g per KG per minute. He is also normal state rate of 20 mL's an hour. He is on 3 L of oxygen by nasal cannula. Urine output is adequate and the patient has improvement in the creatinine which is down to 1.79. No altered mentation. The rhythm is sinus. Note that he has carotid myopathy with an ejection fraction of 20-25%. No confusion on today's evaluation. Onset of the 25 mg at bedtime. The rest of the medications are unchanged. No hypotension. No fever. No chills. No other significant events overnight. We have kept him on dobutamine for another 24 hours. May consider diuresis and the final decision will be left up to nephrology. 06/22/2020, the patient is doing well. He remains on dobutamine. Producing adequate amount of urine output. His chest x-ray showing a enlarging right- sided pleural effusion. He remains in oxygen on room air maintaining saturation above 90%. Urine output is order of 60 mL an hour. Creatinine is at 1.54 and the patient will be given a dose of Lasix 40 mg every push. We have decided to continue dobutamine for another 24 hours to optimize his volume status. He has no specific complaints. No significant cough or sputum production. The patient has advanced cardiomyopathy with an ejection fraction of 20-25%. Objective - Vital Signs Vital signs: Vital Signs Temp 97 F L 06/22/20 08:00 Pulse 81 06/22/20 08:00 Resp 11 L 06/22/20 08:00 BP 98/64 06/22/20 08:00 Pulse Ox 93 L 06/22/20 08:00 Intake & Output 06/21/20 06/22/20 06/22/20 18:59 06:59 18:59 Intake Total 877.257 280.5 144.962 Output Total 695 735 120 Balance 182.257 -454.5 24.962 Weight 73.6 kg Intake: IV 291.4 280.5 51.0 0.9 NaCl 220 220 40 dobutamine 71.4 60.5 11.0 Intake, IV Titration 105.857 93.962 Amount DOBUTamine DRIP 500 mg In 105.857 93.962 Dextrose/Water 1 250ml. bag @ 2.5 MCG/KG/MIN 5. 438 mls/hr IV .Q24H [facility] Rx#:[id number] Oral 480 Output: Urine 695 735 120 Other: Voiding Method Indwelling Catheter Indwelling Catheter Indwelling Catheter # Voids 1 1 - Exam GENERAL EXAM: Alert, very pleasant, 74-year-old white male, on 2 L of oxygen, with pulse ox of 97%, the patient is calm and comfortable and the patient is not using accessory muscles of breathing. He is interacting. His communicating. He keeps on saying that he wants to go home. HEAD: Normocephalic/atraumatic. EYES: Normal reaction of pupils, equal size. Conjunctiva pink, sclera white. NOSE: Clear with pink turbinates. THROAT: No erythema or exudates. NECK: No masses, no JVD, no thyroid enlargement, no adenopathy. CHEST: No chest wall deformity. Symmetrical expansion. LUNGS: Equal air entry with no crackles, wheeze, rhonchi or dullness. CVS: Regular rate and rhythm, normal S1 and S2, no gallops, no murmurs, no rubs ABDOMEN: Soft, nontender. No hepatosplenomegaly, normal bowel sounds, no guarding or rigidity. EXTREMITIES: No clubbing, no edema, no cyanosis, 2+ pulses and upper and lower extremities. MUSCULOSKELETAL: Muscle strength and tone normal. SPINE: No scoliosis or deformity SKIN: No rashes CENTRAL NERVOUS SYSTEM: alert and awake and communicating. At times confused. No focal neurological deficit at this point in time. PSYCHIATRIC: Alert and oriented -3. Appropriate affect. Intact judgment and insight. - Labs CBC & Chem 7: 06/22/20 06:02 06/22/20 06:02 Labs: Abnormal Lab Results - Last 24 Hours (Table) 06/22/20 06/22/20 Range/Units 06:02 06:02 RBC 3.55 L (4.30-5.90) m/uL Hgb 8.2 L (13.0-17.5) gm/dL Hct 27.5 L (39.0-53.0) % MCV 77.4 L (80.0-100.0) fL MCH 23.0 L (25.0-35.0) pg MCHC 29.7 L (31.0-37.0) g/dL RDW 19.2 H (11.5-15.5) % Carbon Dioxide 31 H (22-30) mmol/L BUN 44 H (9-20) mg/dL Creatinine 1.54 H (0.66-1.25) mg/dL Glucose 132 H (74-99) mg/dL Assessment and Plan Plan: 1 chronic dyspnea, multifactorial and chronic.the patient's overall shortness of breath is improved. Nevertheless, the patient developed a right-sided pleural effusion. Despite this, his oxidation is improved and the patient is currently on room air oxygen. He remains on dobutamine. 2 acute on chronic kidney disease and acute on top of chronic decompensated heart failure with prerenal factors.. Baseline renal function is consistent with stage IV kidney disease/failure. the renal function improved with utamine and the patient continues to improve in the creatinine is 1.79 along with adequate urine output. This is related to cardiorenal factors which is improving with use of dobutamine. 3 CHF with an ejection fraction of 20-25% secondary pulmonary hypertension, currently on dobutamine treating an acute exacerbation of CHF and dobutamine is running at 2.5 mg per KG per minute. 4 coronary artery disease with extensive multivessel disease with previous stenting of the LAD. The patient was investigated and declined for bypass surgery back in 2016 due to comorbidities. 5 chronic atrial fibrillation, not on anticoagulants 6 anemia of chronic disease 7 lactic acidosis, improving 8 BPH and chronic obstructive uropathy. The patient performs self- catheterization. Patient also has chronic kidney disease stage 3-4 disease 9 degenerative disc disease involving the lumbar spine 10 chronic cerebral atrophy and along with a component of dementia 11 hyperlipidemia 12 hypertension 13 history of recurrent falls and gait dysfunction secondary to comorbidities 14 hypotensive, improved and patient is currently on midodrine 15 anion gap metabolic acidosis improved and bicarb infusion 16 altered mentation secondary to above. This is related to metabolic factors.mental status is improved and the patient is back to his baseline. At times he is having delirium and he was started on Seroquel 25 mg at bedtime. Plan I am recommend continuing the dobutamine at a dose of 2.5 g per KG per minute for another 24 hours and I'm going to give him Lasix 40 mg IV push. Repeat chest x-ray in the morning Monitor urine output Monitor the blood pressure utilize norepinephrine infusion if needed chest x-ray to be done tomorrow. He may have some small right-sided pleural effusion. The creatinine continues to improve mentally the patient is improved. He is having some occasional delirium overnight. Currently is alert and awake. We'll continue to follow.
[2020-06-22] MEDS: ATORVASTATIN 80 MG TAB PO SCH (17:31)
[2020-06-23] MEDS: LORATADINE 10 MG TAB PO SCH (05:57)
[2020-06-23] MEDS: MIDODRINE 5 MG TAB PO SCH ×3 (05:57→19:24)
[2020-06-23] MEDS: PANTOPRAZOLE 40 MG TABLET PO SCH ×2 (05:57→19:26)
[2020-06-23] MEDS: TICAGRELOR 90 MG TAB PO SCH ×2 (05:57→19:26)
[2020-06-23] MEDS: METOPROLOL SUCCINATE (ER) 50 MG TAB.ER.24H PO SCH (05:57)
[2020-06-23 06:42] LABS: Anisocytosis Slight; HCT 28.3 % (39.0-53.0); HGB 8.5 gm/dL (13.0-17.5); Hypochromasia Marked; MCH 23.1 pg (25.0-35.0); MCHC 30.1 g/dL (31.0-37.0); MCV 76.8 fL (80.0-100.0); Mean Platelet Volume 8.8; Microcytosis Moderate; Platelet Count 184 k/uL (150-450); Poikilocytosis Moderate; RBC 3.69 m/uL (4.30-5.90); RDW 19.2 % (11.5-15.5); WBC 6.5 k/uL (3.8-10.6)
[2020-06-23 06:53] LABS: Calcium 8.8 mg/dL (8.4-10.2); Potassium 3.3 mmol/L (3.5-5.1)
--- NOTE | 2020-06-23 08:44 | XR ---
EXAMINATION TYPE: XR chest 1V portable DATE OF EXAM: 06/23/2020 Comparison: 06/22/2020 Clinical History: 74-year-old male shortness of breath, assess lungs. Findings: Heart mildly enlarged. Atherosclerotic arch calcifications. Prominent vasculature within normal limit s. Small bilateral pleural effusions with a lower lung opacities becoming less confluent from prior e xam. Impression: Small effusions with improving lower lung areas of atelectasis and/or consolidation.
--- NOTE | 2020-06-23 08:50 | P.PN ---
Subjective Progress Note Date: 06/23/20 Principal diagnosis: Heart failure with reduced ejection fraction This is a 74-year-old gentleman was coronary artery disease and prior coronary artery revascularization as well as severe ischemic cardiomyopathy as well as multiple comorbid conditions who was admitted to the hospital with heart failure exacerbation secondary to systolic dysfunction. The patient was seen today June [id number]. He denies any symptoms of chest pain or chest discomfort at this point. He is hemodynamically stable beside being slightly tachycardic which I think that is related to dobutamine. I'm going to stop the dobutamine at this point. His urine output has been good. The creatinine has been stable. The chest x-ray was reviewed from this morning. Objective - Vital Signs Vital signs: Vital Signs Temp 98.2 F 06/23/20 08:00 Pulse 98 06/23/20 08:00 Resp 21 06/23/20 08:00 BP 113/73 06/23/20 08:00 Pulse Ox 92 L 06/23/20 08:00 Intake & Output 06/22/20 06/23/20 06/23/20 18:59 06:59 18:59 Intake Total 639.962 786.0 51.0 Output Total 2620 655 90 Balance -1980.038 131.0 -39.0 Weight 73 kg Intake: IV 306.0 306.0 51.0 0.9 NaCl 240 240 40 dobutamine 66.0 66.0 11.0 Intake, IV Titration 93.962 Amount DOBUTamine DRIP 500 mg In 93.962 Dextrose/Water 1 250ml. bag @ 2.5 MCG/KG/MIN 5. 438 mls/hr IV .Q24H [facility] Rx#:[id number] Oral 240 480 Output: Urine 2620 655 90 Other: Voiding Method Indwelling Catheter Indwelling Catheter Indwelling Catheter # Voids 1 - Constitutional General appearance: Present: no acute distress - Respiratory Respiratory: bilateral: rales - Cardiovascular Rhythm: regular Heart sounds: normal: S1, S2 - Labs CBC & Chem 7: 06/23/20 06:21 06/23/20 06:21 Labs: Abnormal Lab Results - Last 24 Hours (Table) 06/23/20 06/23/20 Range/Units 06:21 06:21 RBC 3.69 L (4.30-5.90) m/uL Hgb 8.5 L (13.0-17.5) gm/dL Hct 28.3 L (39.0-53.0) % MCV 76.8 L (80.0-100.0) fL MCH 23.1 L (25.0-35.0) pg MCHC 30.1 L (31.0-37.0) g/dL RDW 19.2 H (11.5-15.5) % Potassium 3.3 L (3.5-5.1) mmol/L BUN 34 H (9-20) mg/dL Glucose 126 H (74-99) mg/dL Assessment and Plan Assessment: Assessment #1 heart failure with reduced ejection fraction exacerbation #2 known severe ischemic cardiomyopathy #3 known coronary artery disease #4 multiple comorbid conditions Plan #1 continue the current medical regimen #2 continue monitor the kidney function and electrolytes #3 stop the dobutamine #4 follow-up with the patient
[2020-06-23] MEDS: POTASSIUM CHLORIDE ER 20 MEQ TAB.ER PO SCH ×2 (10:20→11:00)
[2020-06-23] MEDS: FUROSEMIDE 10 MG/ML 4 ML VIAL IV SCH ×2 (10:20→20:33)
[2020-06-23] MEDS: SODIUM CHLORIDE 0.9% 1,000 ML IV SCH (11:01)
[2020-06-23] MEDS: DOBUTamine DRIP 500 MG in DEXTROSE/WATER 1 250ML.BAG IV SCH (11:02)
--- NOTE | 2020-06-23 11:51 | P.PN ---
Subjective patient is seen in follow for acute kidney injury on chronic kidney disease. Renal function continues to improve. Dobutamine was discontinued this morning. He did receive a dose of IV Lasix this morning. Good urine output. No chest pain or shortness of breath. Vital signs are stable. General: The patient appeared well nourished and normally developed. HEENT: Head exam is unremarkable. Neck is without jugular venous distension. LUNGS: Breath sounds decreased. HEART: Rate and Rhythm are regular. ABDOMEN: soft, nontender. EXTREMITITES: 1+ edema. Objective - Vital Signs Vital signs: Vital Signs Temp 98.2 F 06/23/20 08:00 Pulse 98 06/23/20 08:00 Resp 21 06/23/20 08:00 BP 113/73 06/23/20 08:00 Pulse Ox 92 L 06/23/20 08:00 Intake & Output 06/22/20 06/23/20 06/23/20 18:59 06:59 18:59 Intake Total 639.962 786.0 51.0 Output Total 2620 655 90 Balance -1979.038 131.0 -39.0 Weight 73 kg Intake: IV 306.0 306.0 51.0 0.9 NaCl 240 240 40 dobutamine 66.0 66.0 11.0 Intake, IV Titration 93.962 Amount DOBUTamine DRIP 500 mg In 93.962 Dextrose/Water 1 250ml. bag @ 2.5 MCG/KG/MIN 5. 438 mls/hr IV .Q24H [facility] Rx#:[id number] Oral 240 480 Output: Urine 2620 655 90 Other: Voiding Method Indwelling Catheter Indwelling Catheter Indwelling Catheter # Voids 1 - Labs CBC & Chem 7: 06/23/20 06:21 06/23/20 06:21 Labs: Abnormal Lab Results - Last 24 Hours (Table) 06/23/20 06/23/20 Range/Units 06:21 06:21 RBC 3.69 L (4.30-5.90) m/uL Hgb 8.5 L (13.0-17.5) gm/dL Hct 28.3 L (39.0-53.0) % MCV 76.8 L (80.0-100.0) fL MCH 23.1 L (25.0-35.0) pg MCHC 30.1 L (31.0-37.0) g/dL RDW 19.2 H (11.5-15.5) % Potassium 3.3 L (3.5-5.1) mmol/L BUN 34 H (9-20) mg/dL Glucose 126 H (74-99) mg/dL Assessment and Plan Plan: Assessment: 1. Acute kidney injury mostly prerenal secondary to cardiorenal syndrome. Improving. Creatinine 1.25 today. 2. Acute on chronic systolic CHF with ejection fraction of 20-25%. 3. Volume overload. Improved with diuresis. 4. Chronic kidney disease stage III with baseline creatinine near 1.2. Etiology is nephrosclerosis. 5. Hypokalemia secondary to diuresis. Plan: maintain IV Lasix. Will change to oral torsemide upon discharge. low-salt diet. Potassium replaced. avoid nephrotoxins. Continue to monitor renal function and urine output. maintain midodrine.
--- NOTE | 2020-06-23 13:28 | P.PN ---
Subjective Progress Note Date: 06/23/20 Principal diagnosis: Acute on chronic systolic congestive heart failure and acute kidney injury. This is a 74-year-old male patient with an extensive cardiac disease and coronary artery disease and CHF with impaired LV function with an ejection fraction of 20-25% home of asked to see because of shortness of breath. The patient is known to have COPD which is mild and based on previous spirometry from 2016 his FEV1 was in order of 80% of predicted is not oxygen dependent. He has chronic kidney disease. His baseline creatinine is around 1.8. He has prostate enlargement and the patient does self-catheterization at home. Recently he has been noted to have urinary incontinence and dribbling without any dysuria or any change in the color or characteristics of urine. No hematuria. He has noted some change in the urine output and for that reason he decided to come in. In the emergency did complain of some shortness of breath. He was also complaining of generalized weakness. It was noted that his creatinine was up to 3.5. Based on that the patient was admitted to the hospital. He is currently being given IV fluids with normal saline at the rate of 80 mL an hour. He has no fever. No chills. No hemoptysis no pleurisy. His chest x-ray showing cardiomegaly without any acute abnormalities. CAT scan of the brain was done in the ED and the patient has cerebral atrophy. No acute abnormalities. The patient also has no edema in the lower extremities. His room air pulse ox was 96%. He was placed on 2 L of oxygen by nasal cannula. On 06/17/2020 patient seen in follow-up on selective care unit, he is awake and alert, in no acute distress, he states he still short of breath, but does not appear to be in any acute respiratory distress, he remains on 2 L of oxygen the pulse ox of 97-100%. No fever or chills, blood pressure is 100/69, blood pressure has been stable over last 24 hours nevertheless patient's lactic acid remains elevated, was 5.9 last night, patient continues on gentle IV hydration with 0.9 normal saline at a rate of 80 ML per hour, this morning lactic acid is 3.7, sodium is 1:30, potassium is 5.0, chloride is 102, CO2 17, BUN of 86, creatinine is 4.76. Yesterday we had a nurse place indwelling catheter, Palomares catheter remains in place, urinalysis showed 1+ ketones, small amount of leuk trase, 13 of white blood cells, urine culture was sent and is pending at this time. Renal profile has been worsening, nephrology consultation has been obtained, patient remains on midodrine for chronic hypotension 06/18/2000 and answering the patient for a follow-up. Compared to yesterday, the patient is much more lethargic and sleepy. I noted that overnight the patient became hypotensive. He was started on midodrine. Subsequently, his urine output dropped and this morning the patient was started on dobutamine infusion considering that his hypotension and renal failure is related to cardiorenal factors. As mentioned earlier, the patient has multivessel coronary artery disease and severe cardiomyopathy with an EF around 20-25%. His IV fluids has been cut down to 40 she is an hour. Based on that, I transferred this patient to the intensive care unit. A blood gas was done that showed a pH of 7.32 with a pCO2 of 26 and pO2 117. This is consistent with underlying metabolic acidosis. The serum bicarbonate of 14. The anion gap is at 17. Lactic acid level is down to 3.7. His BUN is up to 107 with a creatinine of 5. 14 consistent with an acute on top of chronic kidney disease/failure. Sodium level is at 138. Potassium level is at 5.4. He has a Palomares catheter in place. Urine output is quite diminished. Discussed the case with nephrology. The patient be transferred to the intensive care unit for further evaluation and treatment. I was informed that he has a full CODE STATUS for now. 06/19/2020, the patient is being seen for a follow-up. He got transferred to the intensive care unit because of development of acute on chronic kidney injury. The patient's creatinine was on the rise. The patient was started on dobutamine to augment cardiac output at a dose of 2.5 g per KG per minute. The patient was also started on bicarbonate drip and today's bicarb level is up to 21. Clinically improved. His much more awake and alert. He is following commands. He is a bit angry and he wants to leave the hospital and go home. I think there may be a component of confusion also. Overall, he needs to be much more alert and awake and interactive compared to yesterday. The patient'srenal function and urine output is improved. Creatinineis down to 4.07 and the BUN is at 104. The rest of theelectrolytes are all within normal limits. The patient is not having any significant cardiac arrhythmias. He was having borderline low blood pressure and he was started on Midrin. He did not require any pressors. Furthermore, the dobutamine did not cause any significant drop in his blood pressure. He remains afebrile.the chest x-ray from today shows a new airspace disease in the lower lobe compared to yesterday. There is cardiomegaly.I doubt this is related to pneumonia and I think this is related toand he is producing around 50-75 mL an hour on an hourly basis over this past 8 hours. nephrology services on the case. 06/20/2020, I'm seeing the patient for a follow-up. Patient is doing much be tter compared to yesterday. The patient has been hemodynamically stable on dobutamine 2.5 g per KG per minute. This augmented his cardiac output and the patient renal function is improved and the patient is producing better urine output for now.the patient's creatinine is down to 2.53 and the patient is producing adequate amount of urine output. Potassium level is at 3.6. Serum bicarb is 26.the white cell count is at 7.3 with a hemoglobin of 8.9. The chest x-ray showing some hazy infiltration of the right lung base along with some possible pleural effusion. His mental status improved. Overnight he became a bit more confused and restless and agitated. This improved in the customer support advisor hours and he is currently appropriate for now. Is tolerating his diet. No cardiac arrhythmias have been noted. No hypotension. Nephritis on the case. Cardiology is also on the case.also, the patient's serum bicarb is improved and septal 26. 06/21/2020, the patient continues to improve. He remains on dobutamine at 2.5 g per KG per minute. He is also normal state rate of 20 mL's an hour. He is on 3 L of oxygen by nasal cannula. Urine output is adequate and the patient has improvement in the creatinine which is down to 1.79. No altered mentation. The rhythm is sinus. Note that he has carotid myopathy with an ejection fraction of 20-25%. No confusion on today's evaluation. Onset of the 25 mg at bedtime. The rest of the medications are unchanged. No hypotension. No fever. No chills. No other significant events overnight. We have kept him on dobutamine for another 24 hours. May consider diuresis and the final decision will be left up to nephrology. 06/22/2020, the patient is doing well. He remains on dobutamine. Producing adequate amount of urine output. His chest x-ray showing a enlarging right- sided pleural effusion. He remains in oxygen on room air maintaining saturation above 90%. Urine output is order of 60 mL an hour. Creatinine is at 1.54 and the patient will be given a dose of Lasix 40 mg every push. We have decided to continue dobutamine for another 24 hours to optimize his volume status. He has no specific complaints. No significant cough or sputum production. The patient has advanced cardiomyopathy with an ejection fraction of 20-25%. Reevaluated today on 06/23/20, patient was seen by cardiology, and he was taken off Dobutrex, patient denies having any issues, patient is asking to be discharged home. Patient states that there is nothing on with him, and within the home. Chest x-ray continues to show evidence of right-sided pleural effusion and CHF. Renal functioning has improved dramatically with Dobutrex, however I suspect it will get worse again considering the patient is now off dobutamine, and I have recommended that we continue Lasix. Obviously the patient has a very extremely poor prognosis, and he seems to be agreeable to hospice evaluation. Objective - Vital Signs Vital signs: Vital Signs Temp 98.2 F 06/23/20 08:00 Pulse 98 06/23/20 08:00 Resp 21 06/23/20 08:00 BP 113/73 06/23/20 08:00 Pulse Ox 92 L 06/23/20 08:00 Intake & Output 06/22/20 06/23/20 06/23/20 18:59 06:59 18:59 Intake Total 639.962 786.0 51.0 Output Total 2620 655 90 Balance -1980.038 131.0 -39.0 Weight 73 kg Intake: IV 306.0 306.0 51.0 0.9 NaCl 240 240 40 dobutamine 66.0 66.0 11.0 Intake, IV Titration 93.962 Amount DOBUTamine DRIP 500 mg In 93.962 Dextrose/Water 1 250ml. bag @ 2.5 MCG/KG/MIN 5. 438 mls/hr IV .Q24H [facility] Rx#:[id number] Oral 240 480 Output: Urine 2620 655 90 Other: Voiding Method Indwelling Catheter Indwelling Catheter Indwelling Catheter # Voids 1 - Exam GENERAL EXAM: Alert, very pleasant, 74-year-old white male, on room air with O2 saturation of 93% HEENT: PERRLA, EOMI, no icterus. CHEST: No chest wall deformity. Symmetrical expansion. LUNGS: Diminished breath sounds and crackles at the base CVS: Regular rate and rhythm, normal S1 and S2, no gallops, no murmurs, no rubs ABDOMEN: Soft, nontender. No hepatosplenomegaly, normal bowel sounds, no guarding or rigidity. EXTREMITIES: No clubbing, no edema, no cyanosis, 2+ pulses and upper and lower extremities. MUSCULOSKELETAL: Muscle strength and tone normal. SPINE: No scoliosis or deformity SKIN: No rashes CENTRAL NERVOUS SYSTEM: alert and awake and communicating. No focal deficit at this time PSYCHIATRIC: Alert and oriented -3. Appropriate affect. Intact judgment and insight. - Labs CBC & Chem 7: 06/23/20 06:21 06/23/20 06:21 Labs: Abnormal Lab Results - Last 24 Hours (Table) 06/23/20 06/23/20 Range/Units 06:21 06:21 RBC 3.69 L (4.30-5.90) m/uL Hgb 8.5 L (13.0-17.5) gm/dL Hct 28.3 L (39.0-53.0) % MCV 76.8 L (80.0-100.0) fL MCH 23.1 L (25.0-35.0) pg MCHC 30.1 L (31.0-37.0) g/dL RDW 19.2 H (11.5-15.5) % Potassium 3.3 L (3.5-5.1) mmol/L BUN 34 H (9-20) mg/dL Glucose 126 H (74-99) mg/dL Assessment and Plan Assessment: Impression: Acute on chronic congestive heart failure secondary to systolic dysfunction ejection fraction of 20-25%. Acute cardiorenal syndrome, improved renal status with Dobutrex. Chronic atrial fibrillation. Right-sided pleural effusion, felt to be cardiac unless for otherwise. Patient is asking to go home and he definitely would not agree to thoracentesis. Anemia of chronic disease. Chronic cerebral atrophy with some component of dementia. Benign essential hypertension. Anion gap metabolic acidosis resolved since admission. Recommendation: Continue present supportive care measures. Overall prognosis is extremely poor and guarded. Consider hospice if the patient is agreeable to hospice then he could be sent home with hospice care. Patient clearly has a terminal condition/severe ischemic cardiomyopathy Renal functioning will likely get worse again now that he is on Dobutrex. We'll continue to follow while in the ICU Time with Patient: Less than 30
--- NOTE | 2020-06-23 14:13 | P.PN ---
Subjective She is admitted for generalized weakness. Patient is found to have acute renal failure patient was receiving IV fluids. Patient does have a cut his heart failure EF of around 20-25%. Patient declined to take any medications declined any blood tests. Patient was on 80 mL of normal saline but when I saw his own receiving 40 mL still complaining of shortness of breath which appeared to be chronic clinically still doesn't appear to be in heart failure exacerbation I ordered a chest x-ray after extensive counseling and spending quite a bit of time with the patient counseling her the patient patient is agreeable to get the blood draw. Patient's serum creatinine was around 3.5 yesterday. Nothing available from today 06/18/2020 Patient's creatinine continued to get worse and the presently 5.14. Patient lactic acidosis although improved patient became more confused patient was subsequently transferred to ICU patient potassium went up to 5.4. Patient is being started on dobutamine drip and the patient is also on the sodium bicarbonate IV drip. Patient has rhonchi bilaterally. Pulmonology and nephrology are following the patient. Patient had an ABG which showed severe metabolic acidosis. Patient appears to have uremic encephalopathy 06/19/2020 Patient is more awake and alert and oriented 3 today does have some bibasilar crackles and exam. Chest x-ray did not show any significant abnormality patient says bicarbonate was decreased to 50 and patient is presently on dobutamine drip with improving creatinine, lactic acid was not obtained today. Patient in supplement improved now patient is complaining of fatigue and the discomfort in the left upper abdomen 06/20/2020 Patient overall has significant improvement patient remains on dobutamine 2.5 mcg/kg/m. Patient's serum creatinine is improving came down to 2.53. Patient urine output is better patient was having sundowners and is getting agitated at nighttime patient was started on Seroquel for that of Zyprexa Zydis for that. Patient is also on Percocet every 4 hours the frequency of which will be cut down to every 8 hours hourly patient received Percocet only once today. 06/21/2020 Intake is still on dobutamine patient can use to have improvement in his creatinine presently in 3-7 oxygen patient has good urine output at this time patient present creatinine is 1.79. 06/22/2020 Patient has bilateral pleural effusions patient was started on IV Lasix s ignificant urine output since Lasix. Patient remains on dobutamine drip. Patient creatinine continue to improve, presently 1.54 patient is awake alert and able to provide history 06/23/2020 The history and IV Lasix with significant improvement in patient's present serum creatinine is 1.25 patientjob dobutamine at this time. Patient pulmonary edema improved patient is on room air lung exam improved as well but still has bibasilar crackles still has pulmonary edema on x-ray Constitutional: Denied any fatigue denied any fever. Cardio vascular: denied any chest pain, palpitations Gastrointestinal denied any nausea vomiting Pulmonary: Denied any shortness of breath cough Neurologic denied any new focal deficits All inpatient medications were reviewed and appropriate changes in these medica tions as dictated in the interval history and assessment and plan. Objective - Vital Signs Vital signs: Vital Signs Temp 98.1 F 06/23/20 12:00 Pulse 77 06/23/20 13:00 Resp 13 06/23/20 13:00 BP 97/61 06/23/20 13:00 Pulse Ox 95 06/23/20 13:00 Intake & Output 06/22/20 06/23/20 06/23/20 18:59 06:59 18:59 Intake Total 639.962 786.0 473.0 Output Total 2620 655 865 Balance -1980.038 131.0 -392.0 Weight 73 kg Intake: IV 306.0 306.0 151.0 0.9 NaCl 240 240 140 dobutamine 66.0 66.0 11.0 Intake, IV Titration 93.962 Amount DOBUTamine DRIP 500 mg In 93.962 Dextrose/Water 1 250ml. bag @ 2.5 MCG/KG/MIN 5. 438 mls/hr IV .Q24H [facility] Rx#:[id number] Oral 240 480 322 Output: Urine 2620 655 865 Other: Voiding Method Indwelling Catheter Indwelling Catheter Indwelling Catheter # Voids 1 - Exam PHYSICAL EXAMINATION: GENERAL: The patient is alert and oriented x3, not in any acute distress. Well developed, well nourished. HEENT: Pupils are round and equally reacting to light. EOMI. No scleral icterus. No conjunctival pallor. Normocephalic, atraumatic. No pharyngeal erythema. No thyromegaly. CARDIOVASCULAR: S1 and S2 present. No murmurs, rubs, or gallops. PULMONARY:patient does have bibasilar crackles ABDOMEN: Soft, nontender, nondistended, normoactive bowel sounds. No palpable organomegaly. MUSCULOSKELETAL: No joint swelling or deformity. EXTREMITIES: No cyanosis, clubbing, or pedal edema. NEUROLOGICAL: Gross neurological examination did not reveal any focal deficits. SKIN: No rashes. - Labs CBC & Chem 7: 06/23/20 06:21 06/23/20 06:21 Labs: Abnormal Lab Results - Last 24 Hours (Table) 06/23/20 06/23/20 Range/Units 06:21 06:21 RBC 3.69 L (4.30-5.90) m/uL Hgb 8.5 L (13.0-17.5) gm/dL Hct 28.3 L (39.0-53.0) % MCV 76.8 L (80.0-100.0) fL MCH 23.1 L (25.0-35.0) pg MCHC 30.1 L (31.0-37.0) g/dL RDW 19.2 H (11.5-15.5) % Potassium 3.3 L (3.5-5.1) mmol/L BUN 34 H (9-20) mg/dL Glucose 126 H (74-99) mg/dL Assessment and Plan Plan: -bilateral pleural effusions: Seconded to CHF seizures gastro-dysfunction with acute exacerbation patient is presently on IV Lasix was on dobutamine drip which was discontinued on 06/22/2020 -Encephalopathy: uremic encephalopathy improved mental status.encephalopathy resolved -Anion metabolic acidosis: Secondary to lactic acidosis and uremia, improved now -Acute renal failure: He appears to be prerenal azotemia from hypotension, cathy estive heart failure. Improved with dobutamine. 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 -Lactic is doses probably decrease organ perfusion from intravascular hypovole [place] -Severe pulmonary hypertension -Elevated BNP patient has chronically elevated BNP around this level -hypertension -hyperlipidemia -Atrial fibrillation proximal presently rate controlled patient is presently not on any anticoagulation not on anti-coagulation at this -Anemia of chronic kidney disease -Coronary artery disease -DVT prophylaxis with subcutaneous heparin
[2020-06-23] MEDS: ATORVASTATIN 80 MG TAB PO SCH (19:26)
[2020-06-24] MEDS: MIDODRINE 5 MG TAB PO SCH ×3 (05:22→16:33)
[2020-06-24] MEDS: TICAGRELOR 90 MG TAB PO SCH ×2 (05:22→16:33)
[2020-06-24] MEDS: PANTOPRAZOLE 40 MG TABLET PO SCH ×2 (05:22→16:33)
[2020-06-24] MEDS: METOPROLOL SUCCINATE (ER) 50 MG TAB.ER.24H PO SCH ×2 (05:22→20:42)
[2020-06-24] MEDS: LORATADINE 10 MG TAB PO SCH (05:22)
[2020-06-24 07:24] LABS: Anisocytosis Slight; Basophils % (A) 1 %; Eosinophils # (A) 0.2 k/uL (0-0.7); Eosinophils % (A) 3 %; HCT 31.2 % (39.0-53.0); HGB 9.3 gm/dL (13.0-17.5); Hypochromasia Marked; Lymphocytes # (A) 1.8 k/uL (1.0-4.8); Lymphocytes % (A) 26 %; MCH 22.5 pg (25.0-35.0); MCHC 29.7 g/dL (31.0-37.0); MCV 75.7 fL (80.0-100.0); Mean Platelet Volume 9.2; Microcytosis Moderate; Monocytes # (A) 0.6 k/uL (0-1.0); Monocytes % (A) 9 %; Neutrophils # (A) 3.9 k/uL (1.3-7.7); Neutrophils % (A) 58 %; Platelet Count 222 k/uL (150-450); Poikilocytosis Moderate; RBC 4.12 m/uL (4.30-5.90); RDW 19.2 % (11.5-15.5); WBC 6.8 k/uL (3.8-10.6)
[2020-06-24 07:30] LABS: Calcium 9.2 mg/dL (8.4-10.2); Potassium 3.8 mmol/L (3.5-5.1)
--- NOTE | 2020-06-24 08:01 | P.PN ---
Subjective Progress Note Date: 06/24/20 Principal diagnosis: Heart failure with reduced ejection fraction This is a 74-year-old gentleman was coronary artery disease and prior coronary artery revascularization as well as severe ischemic cardiomyopathy as well as multiple comorbid conditions who was admitted to the hospital with heart failure exacerbation secondary to systolic dysfunction. The patient was seen today June [id number]. He continues to have shortness of breath. No symptoms of chest pain or chest discomfort. Yesterday I stopped the dobutamine because of the tachycardia. He continues to be slightly tachycardic and I'm going to increase the dose of metoprolol to control the heart rate. He continues to be on Lasix IV. The chest x-ray was reviewed today and continues to show left pleural effusion. Intensive care team is on the case as well. Objective - Vital Signs Vital signs: Vital Signs Temp 98.4 F 06/24/20 04:00 Pulse 104 H 06/24/20 07:00 Resp 18 06/24/20 07:00 BP 109/91 06/24/20 07:00 Pulse Ox 95 06/24/20 07:00 Intake & Output 06/23/20 06/24/20 06/24/20 18:59 06:59 18:59 Intake Total 1017.0 240 20 Output Total 1840 1670 75 Balance -823.0 -1430 -55 Weight 72.4 kg Intake: IV 251.0 240 20 0.9 NaCl 240 240 20 dobutamine 11.0 Oral 766 Output: Urine 1840 1670 75 Other: Voiding Method Indwelling Catheter Indwelling Catheter - Constitutional General appearance: Present: no acute distress - Respiratory Respiratory: bilateral: diminished - Cardiovascular Rhythm: regular Heart sounds: normal: S1, S2 - Labs CBC & Chem 7: 06/24/20 06:37 06/24/20 06:37 Labs: Abnormal Lab Results - Last 24 Hours (Table) 06/24/20 06/24/20 Range/Units 06:37 06:37 RBC 4.12 L (4.30-5.90) m/uL Hgb 9.3 L (13.0-17.5) gm/dL Hct 31.2 L (39.0-53.0) % MCV 75.7 L (80.0-100.0) fL MCH 22.5 L (25.0-35.0) pg MCHC 29.7 L (31.0-37.0) g/dL RDW 19.2 H (11.5-15.5) % Carbon Dioxide 31 H (22-30) mmol/L BUN 29 H (9-20) mg/dL Creatinine 1.36 H (0.66-1.25) mg/dL Glucose 109 H (74-99) mg/dL Magnesium 1.0 L (1.6-2.3) mg/dL Assessment and Plan Assessment: Assessment #1 heart failure with reduced ejection fraction exacerbation #2 known severe ischemic cardiomyopathy #3 known coronary artery disease #4 multiple comorbid conditions Plan #1 continue the current medical regimen #2 continue monitor the kidney function and electrolytes #3 increase the dose of metoprolol #4 follow-up with the patient
[2020-06-24] MEDS: DOBUTamine DRIP 500 MG in DEXTROSE/WATER 1 250ML.BAG IV SCH (08:39)
--- NOTE | 2020-06-24 08:49 | XR ---
EXAMINATION TYPE: XR chest 1V portable DATE OF EXAM: 06/24/2020 COMPARISON: 06/23/2020 INDICATION: Previous abnormal chest, assess lungs TECHNIQUE: Single frontal view of the chest is obtained. FINDINGS: The heart size is moderately prominent. The pulmonary vasculature is prominent. There is a small right pleural effusion. Minimal left pleural effusion is present. Findings are stabl e over the interval. IMPRESSION: 1. Small stable bilateral pleural effusions.
[2020-06-24] MEDS: SODIUM CHLORIDE 0.9% 1,000 ML IV SCH (08:53)
[2020-06-24] MEDS: FUROSEMIDE 10 MG/ML 4 ML VIAL IV SCH (08:53)
--- NOTE | 2020-06-24 09:51 | P.PN ---
Subjective Patient is seen in follow for acute kidney injury on chronic kidney disease. Renal function stable. Dobutamine was discontinued June 23. he is maintained on IV Lasix 40 mg twice daily. Good urine output. No chest pain or shortness of breath. once to go home. Hospice being considered. Vital signs are stable. General: The patient appeared well nourished and normally developed. HEENT: Head exam is unremarkable. Neck is without jugular venous distension. LUNGS: Breath sounds decreased. HEART: Rate and Rhythm are regular. ABDOMEN: soft, nontender. EXTREMITITES: 1+ edema. Objective - Vital Signs Vital signs: Vital Signs Temp 98.9 F 06/24/20 08:00 Pulse 90 06/24/20 09:00 Resp 17 06/24/20 09:00 BP 120/91 06/24/20 09:00 Pulse Ox 95 06/24/20 09:00 Intake & Output 06/23/20 06/24/20 06/24/20 18:59 06:59 18:59 Intake Total 1017.0 240 60 Output Total 1840 1670 325 Balance -823.0 -1430 -265 Weight 72.4 kg Intake: IV 251.0 240 60 0.9 NaCl 240 240 60 dobutamine 11.0 Oral 766 Output: Urine 1840 1670 325 Other: Voiding Method Indwelling Catheter Indwelling Catheter Indwelling Catheter - Labs CBC & Chem 7: 06/24/20 06:37 06/24/20 06:37 Labs: Abnormal Lab Results - Last 24 Hours (Table) 06/24/20 06/24/20 Range/Units 06:37 06:37 RBC 4.12 L (4.30-5.90) m/uL Hgb 9.3 L (13.0-17.5) gm/dL Hct 31.2 L (39.0-53.0) % MCV 75.7 L (80.0-100.0) fL MCH 22.5 L (25.0-35.0) pg MCHC 29.7 L (31.0-37.0) g/dL RDW 19.2 H (11.5-15.5) % Carbon Dioxide 31 H (22-30) mmol/L BUN 29 H (9-20) mg/dL Creatinine 1.36 H (0.66-1.25) mg/dL Glucose 109 H (74-99) mg/dL Magnesium 1.0 L (1.6-2.3) mg/dL Assessment and Plan Plan: Assessment: 1. Acute kidney injury mostly prerenal secondary to cardiorenal syndrome. Renal function stable. Creatinine 1.36 today. 2. Acute on chronic systolic CHF with ejection fraction of 20-25%. 3. Volume overload. Improved with diuresis. 4. Chronic kidney disease stage III with baseline creatinine near 1.2. Etiology is nephrosclerosis. 5. Hypokalemia secondary to diuresis and hypomagnesemia. improved. 6. Hypomagnesemia secondary to diuresis. Plan: change IV Lasix to torsemide 40 mg once daily upon discharge. Replace magnesium. 3 g IV magnesium sulfate today. Add oral magnesium oxide and potassium supplementation upon discharge. low-salt diet. avoid nephrotoxins. Continue to monitor renal function and urine output. maintain midodrine. repeat BMP and magnesium level 2-3 days postdischarge. Follow up outpatient in 1 week. Hospice being considered.
[2020-06-24 10:38] VITALS: BMI 25.0
[2020-06-24] MEDS: MAGNESIUM SULFATE-D5W PMX 1 GM in DEXTROSE/WATER 1 100ML.BAG IVPB SCH ×3 (10:55→12:16)
--- NOTE | 2020-06-24 12:40 | P.PN ---
Subjective She is admitted for generalized weakness. Patient is found to have acute renal failure patient was receiving IV fluids. Patient does have a cut his heart failure EF of around 20-25%. Patient declined to take any medications declined any blood tests. Patient was on 80 mL of normal saline but when I saw his own receiving 40 mL still complaining of shortness of breath which appeared to be chronic clinically still doesn't appear to be in heart failure exacerbation I ordered a chest x-ray after extensive counseling and spending quite a bit of time with the patient counseling her the patient patient is agreeable to get the blood draw. Patient's serum creatinine was around 3.5 yesterday. Nothing available from today 06/18/2020 Patient's creatinine continued to get worse and the presently 5.14. Patient lactic acidosis although improved patient became more confused patient was subsequently transferred to ICU patient potassium went up to 5.4. Patient is being started on dobutamine drip and the patient is also on the sodium bicarbonate IV drip. Patient has rhonchi bilaterally. Pulmonology and nephrology are following the patient. Patient had an ABG which showed severe metabolic acidosis. Patient appears to have uremic encephalopathy 06/19/2020 Patient is more awake and alert and oriented 3 today does have some bibasilar crackles and exam. Chest x-ray did not show any significant abnormality patient says bicarbonate was decreased to 50 and patient is presently on dobutamine drip with improving creatinine, lactic acid was not obtained today. Patient in supplement improved now patient is complaining of fatigue and the discomfort in the left upper abdomen 06/20/2020 Patient overall has significant improvement patient remains on dobutamine 2.5 mcg/kg/m. Patient's serum creatinine is improving came down to 2.53. Patient urine output is better patient was having sundowners and is getting agitated at nighttime patient was started on Seroquel for that of Zyprexa Zydis for that. Patient is also on Percocet every 4 hours the frequency of which will be cut down to every 8 hours hourly patient received Percocet only once today. 06/21/2020 Intake is still on dobutamine patient can use to have improvement in his creatinine presently in 3-7 oxygen patient has good urine output at this time patient present creatinine is 1.79. 06/22/2020 Patient has bilateral pleural effusions patient was started on IV Lasix s ignificant urine output since Lasix. Patient remains on dobutamine drip. Patient creatinine continue to improve, presently 1.54 patient is awake alert and able to provide history 06/23/2020 The history and IV Lasix with significant improvement in patient's present serum creatinine is 1.25 patientjob dobutamine at this time. Patient pulmonary edema improved patient is on room air lung exam improved as well but still has bibasilar crackles still has pulmonary edema on x-ray 06/24/2020 Patient's serum creatinine plan data up today. Patient was switched to oral Demadex. Patient probably will be switched discharged on this medication patient may need home care. Constitutional: Denied any fatigue denied any fever. Cardio vascular: denied any chest pain, palpitations Gastrointestinal denied any nausea vomiting Pulmonary: Denied any shortness of breath cough Neurologic denied any new focal deficits All inpatient medications were reviewed and appropriate changes in these medications as dictated in the interval history and assessment and plan. Objective - Vital Signs Vital signs: Vital Signs Temp 98.9 F 06/24/20 08:00 Pulse 90 06/24/20 09:00 Resp 17 06/24/20 09:00 BP 120/91 06/24/20 09:00 Pulse Ox 95 06/24/20 09:00 Intake & Output 06/23/20 06/24/20 06/24/20 18:59 06:59 18:59 Intake Total 1017.0 240 60 Output Total 1840 1670 325 Balance -823.0 -1430 -265 Weight 72.4 kg 72.4 kg Intake: IV 251.0 240 60 0.9 NaCl 240 240 60 dobutamine 11.0 Oral 766 Output: Urine 1840 1670 325 Other: Voiding Method Indwelling Catheter Indwelling Catheter Indwelling Catheter - Exam PHYSICAL EXAMINATION: GENERAL: The patient is alert and oriented x3, not in any acute distress. Well developed, well nourished. HEENT: Pupils are round and equally reacting to light. EOMI. No scleral icterus. No conjunctival pallor. Normocephalic, atraumatic. No pharyngeal erythema. No thyromegaly. CARDIOVASCULAR: S1 and S2 present. No murmurs, rubs, or gallops. PULMONARY:crackles improved fairly good air entry and bilateral lung lutz ABDOMEN: Soft, nontender, nondistended, normoactive bowel sounds. No palpable o rganomegaly. MUSCULOSKELETAL: No joint swelling or deformity. EXTREMITIES: No cyanosis, clubbing, or pedal edema. NEUROLOGICAL: Gross neurological examination did not reveal any focal deficits. SKIN: No rashes. - Labs CBC & Chem 7: 06/24/20 06:37 06/24/20 06:37 Labs: Abnormal Lab Results - Last 24 Hours (Table) 06/24/20 06/24/20 Range/Units 06:37 06:37 RBC 4.12 L (4.30-5.90) m/uL Hgb 9.3 L (13.0-17.5) gm/dL Hct 31.2 L (39.0-53.0) % MCV 75.7 L (80.0-100.0) fL MCH 22.5 L (25.0-35.0) pg MCHC 29.7 L (31.0-37.0) g/dL RDW 19.2 H (11.5-15.5) % Carbon Dioxide 31 H (22-30) mmol/L BUN 29 H (9-20) mg/dL Creatinine 1.36 H (0.66-1.25) mg/dL Glucose 109 H (74-99) mg/dL Magnesium 1.0 L (1.6-2.3) mg/dL Assessment and Plan Plan: -bilateral pleural effusions: Seconded to CHF diastolicas a less severe sys tolic-dysfunction, EF of around 20-25% with acute exacerbation patient is presently on IV Lasix was on dobutamine drip which was discontinued on 06/22/2020dear patient appears to be fairly euvolemic today and will be switched to oral Demadex. -Encephalopathy: uremic encephalopathy improved mental status.encephalopathy resolved -Anion metabolic acidosis: Secondary to lactic acidosis and uremia, improved now -Acute renal failure: He appears to be prerenal azotemia from hypotension, congestive heart failure. Improved with dobutamine. 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 -Lactic is doses probably decrease organ perfusion from intravascular hypovolemia, resolved now -Severe pulmonary hypertension -Elevated BNP patient has chronically elevated BNP around this level -hypertension -hyperlipidemia -Atrial fibrillation proximal presently rate controlled patient is presently not on any anticoagulation not on anti-coagulation at this -Anemia of chronic kidney disease -Coronary artery disease -DVT prophylaxis with subcutaneous heparin
--- NOTE | 2020-06-24 13:39 | P.PN ---
Subjective Progress Note Date: 06/24/20 Principal diagnosis: Acute on chronic systolic congestive heart failure and acute kidney injury. This is a 74-year-old male patient with an extensive cardiac disease and coronary artery disease and CHF with impaired LV function with an ejection fraction of 20-25% home of asked to see because of shortness of breath. The patient is known to have COPD which is mild and based on previous spirometry from 2016 his FEV1 was in order of 80% of predicted is not oxygen dependent. He has chronic kidney disease. His baseline creatinine is around 1.8. He has prostate enlargement and the patient does self-catheterization at home. Recently he has been noted to have urinary incontinence and dribbling without any dysuria or any change in the color or characteristics of urine. No hematuria. He has noted some change in the urine output and for that reason he decided to come in. In the emergency did complain of some shortness of breath. He was also complaining of generalized weakness. It was noted that his creatinine was up to 3.5. Based on that the patient was admitted to the hospital. He is currently being given IV fluids with normal saline at the rate of 80 mL an hour. He has no fever. No chills. No hemoptysis no pleurisy. His chest x-ray showing cardiomegaly without any acute abnormalities. CAT scan of the brain was done in the ED and the patient has cerebral atrophy. No acute abnormalities. The patient also has no edema in the lower extremities. His room air pulse ox was 96%. He was placed on 2 L of oxygen by nasal cannula. On 06/17/2020 patient seen in follow-up on selective care unit, he is awake and alert, in no acute distress, he states he still short of breath, but does not appear to be in any acute respiratory distress, he remains on 2 L of oxygen the pulse ox of 97-100%. No fever or chills, blood pressure is 100/69, blood pressure has been stable over last 24 hours nevertheless patient's lactic acid remains elevated, was 5.9 last night, patient continues on gentle IV hydration with 0.9 normal saline at a rate of 80 ML per hour, this morning lactic acid is 3.7, sodium is 1:30, potassium is 5.0, chloride is 102, CO2 17, BUN of 86, creatinine is 4.76. Yesterday we had a nurse place indwelling catheter, Palomares catheter remains in place, urinalysis showed 1+ ketones, small amount of leuk trase, 13 of white blood cells, urine culture was sent and is pending at this time. Renal profile has been worsening, nephrology consultation has been obtained, patient remains on midodrine for chronic hypotension 06/18/2000 and answering the patient for a follow-up. Compared to yesterday, the patient is much more lethargic and sleepy. I noted that overnight the patient became hypotensive. He was started on midodrine. Subsequently, his urine output dropped and this morning the patient was started on dobutamine infusion considering that his hypotension and renal failure is related to cardiorenal factors. As mentioned earlier, the patient has multivessel coronary artery disease and severe cardiomyopathy with an EF around 20-25%. His IV fluids has been cut down to 40 she is an hour. Based on that, I transferred this patient to the intensive care unit. A blood gas was done that showed a pH of 7.32 with a pCO2 of 26 and pO2 117. This is consistent with underlying metabolic acidosis. The serum bicarbonate of 14. The anion gap is at 17. Lactic acid level is down to 3.7. His BUN is up to 107 with a creatinine of 5. 14 consistent with an acute on top of chronic kidney disease/failure. Sodium level is at 138. Potassium level is at 5.4. He has a Palomares catheter in place. Urine output is quite diminished. Discussed the case with nephrology. The patient be transferred to the intensive care unit for further evaluation and treatment. I was informed that he has a full CODE STATUS for now. 06/19/2020, the patient is being seen for a follow-up. He got transferred to the intensive care unit because of development of acute on chronic kidney injury. The patient's creatinine was on the rise. The patient was started on dobutamine to augment cardiac output at a dose of 2.5 g per KG per minute. The patient was also started on bicarbonate drip and today's bicarb level is up to 21. Clinically improved. His much more awake and alert. He is following commands. He is a bit angry and he wants to leave the hospital and go home. I think there may be a component of confusion also. Overall, he needs to be much more alert and awake and interactive compared to yesterday. The patient'srenal function and urine output is improved. Creatinineis down to 4.07 and the BUN is at 104. The rest of theelectrolytes are all within normal limits. The patient is not having any significant cardiac arrhythmias. He was having borderline low blood pressure and he was started on Midrin. He did not require any pressors. Furthermore, the dobutamine did not cause any significant drop in his blood pressure. He remains afebrile.the chest x-ray from today shows a new airspace disease in the lower lobe compared to yesterday. There is cardiomegaly.I doubt this is related to pneumonia and I think this is related toand he is producing around 50-75 mL an hour on an hourly basis over this past 8 hours. nephrology services on the case. 06/20/2020, I'm seeing the patient for a follow-up. Patient is doing much be tter compared to yesterday. The patient has been hemodynamically stable on dobutamine 2.5 g per KG per minute. This augmented his cardiac output and the patient renal function is improved and the patient is producing better urine output for now.the patient's creatinine is down to 2.53 and the patient is producing adequate amount of urine output. Potassium level is at 3.6. Serum bicarb is 26.the white cell count is at 7.3 with a hemoglobin of 8.9. The chest x-ray showing some hazy infiltration of the right lung base along with some possible pleural effusion. His mental status improved. Overnight he became a bit more confused and restless and agitated. This improved in the senior linux engineer hours and he is currently appropriate for now. Is tolerating his diet. No cardiac arrhythmias have been noted. No hypotension. Nephritis on the case. Cardiology is also on the case.also, the patient's serum bicarb is improved and septal 26. 06/21/2020, the patient continues to improve. He remains on dobutamine at 2.5 g per KG per minute. He is also normal state rate of 20 mL's an hour. He is on 3 L of oxygen by nasal cannula. Urine output is adequate and the patient has improvement in the creatinine which is down to 1.79. No altered mentation. The rhythm is sinus. Note that he has carotid myopathy with an ejection fraction of 20-25%. No confusion on today's evaluation. Onset of the 25 mg at bedtime. The rest of the medications are unchanged. No hypotension. No fever. No chills. No other significant events overnight. We have kept him on dobutamine for another 24 hours. May consider diuresis and the final decision will be left up to nephrology. 06/22/2020, the patient is doing well. He remains on dobutamine. Producing adequate amount of urine output. His chest x-ray showing a enlarging right- sided pleural effusion. He remains in oxygen on room air maintaining saturation above 90%. Urine output is order of 60 mL an hour. Creatinine is at 1.54 and the patient will be given a dose of Lasix 40 mg every push. We have decided to continue dobutamine for another 24 hours to optimize his volume status. He has no specific complaints. No significant cough or sputum production. The patient has advanced cardiomyopathy with an ejection fraction of 20-25%. Reevaluated today on 06/23/20, patient was seen by cardiology, and he was taken off Dobutrex, patient denies having any issues, patient is asking to be discharged home. Patient states that there is nothing on with him, and within the home. Chest x-ray continues to show evidence of right-sided pleural effusion and CHF. Renal functioning has improved dramatically with Dobutrex, however I suspect it will get worse again considering the patient is now off dobutamine, and I have recommended that we continue Lasix. Obviously the patient has a very extremely poor prognosis, and he seems to be agreeable to hospice evaluation. Reevaluated today on 06/24/20, patient remains in the ICU, he is feeling much better, breathing a lot easier, on room air with O2 saturation of 96%. His IV fluid to KVO, continues to diuresis with Demadex as ordered by nephrology. Patient denies any shortness of breath, and his fluid balance is negative about 2 L in the last 24 hours. Patient was seen by hospice staff, and supposed to meet with his spouse today. Chest x-ray continues to show congestive heart failure and small right-sided pleural effusion with atelectasis. CBC is relatively unremarkable. BUN is 29 creatinine is up to 1.36 from 1.5 yesterday. Objective - Vital Signs Vital signs: Vital Signs Temp 98.9 F 06/24/20 08:00 Pulse 90 06/24/20 09:00 Resp 17 09/22/20 09:00 BP 120/91 06/24/20 09:00 Pulse Ox 95 06/24/20 09:00 Intake & Output 06/23/20 06/24/20 06/24/20 18:59 06:59 18:59 Intake Total 1017.0 240 60 Output Total 1840 1670 325 Balance -823.0 -1430 -265 Weight 72.4 kg 72.4 kg Intake: IV 251.0 240 60 0.9 NaCl 240 240 60 dobutamine 11.0 Oral 766 Output: Urine 1840 1670 325 Other: Voiding Method Indwelling Catheter Indwelling Catheter Indwelling Catheter - Exam GENERAL EXAM: Alert, very pleasant, 74-year-old white male, on room air with O2 saturation of 96% HEENT: PERRLA, EOMI, no icterus. CHEST: No chest wall deformity. Symmetrical expansion. LUNGS: Diminished breath sounds and crackles at the base CVS: Regular rate and rhythm, normal S1 and S2, no gallops, no murmurs, no rubs ABDOMEN: Soft, nontender. No hepatosplenomegaly, normal bowel sounds, no guarding or rigidity. EXTREMITIES: No clubbing, no edema, no cyanosis, 2+ pulses and upper and lower extremities. MUSCULOSKELETAL: Muscle strength and tone normal. SPINE: No scoliosis or deformity SKIN: No rashes CENTRAL NERVOUS SYSTEM: alert and awake and communicating. No focal deficit at this time PSYCHIATRIC: Alert and oriented -3. Appropriate affect. Intact judgment and insight. - Labs CBC & Chem 7: 06/24/20 06:37 06/24/20 06:37 Labs: Abnormal Lab Results - Last 24 Hours (Table) 06/24/20 06/24/20 Range/Units 06:37 06:37 RBC 4.12 L (4.30-5.90) m/uL Hgb 9.3 L (13.0-17.5) gm/dL Hct 31.2 L (39.0-53.0) % MCV 75.7 L (80.0-100.0) fL MCH 22.5 L (25.0-35.0) pg MCHC 29.7 L (31.0-37.0) g/dL RDW 19.2 H (11.5-15.5) % Carbon Dioxide 31 H (22-30) mmol/L BUN 29 H (9-20) mg/dL Creatinine 1.36 H (0.66-1.25) mg/dL Glucose 109 H (74-99) mg/dL Magnesium 1.0 L (1.6-2.3) mg/dL Assessment and Plan Assessment: Impression: Acute on chronic congestive heart failure secondary to systolic dysfunction ejection fraction of 20-25%. Acute cardiorenal syndrome, improved renal status with Dobutrex. Which has been discontinued about 2 days ago. Chronic atrial fibrillation. Right-sided pleural effusion, felt to be cardiac unless for otherwise. Should improve with diuretics Anemia of chronic disease. Chronic cerebral atrophy with some component of dementia. Benign essential hypertension. Anion gap metabolic acidosis resolved since admission. Recommendation: Continue present supportive care measures. Overall prognosis is extremely poor and guarded. Hospice to meet with his spouse today. Transfer patient out of the ICU to a regular medical floor use remote telemetry. We'll continue to follow while in the ICU Time with Patient: Less than 30
[2020-06-24] MEDS: POTASSIUM CHLORIDE ER 10 MEQ TAB.ER.PRT PO SCH (20:42)
[2020-06-24] MEDS: ALPRAZolam 0.25 MG TAB PO PRN (23:05)
[2020-06-25 04:33] LABS: Potassium 3.8 mmol/L (3.5-5.1)
[2020-06-25] MEDS: LORATADINE 10 MG TAB PO SCH (06:02)
[2020-06-25] MEDS: TICAGRELOR 90 MG TAB PO SCH ×2 (06:02→18:05)
[2020-06-25] MEDS: PANTOPRAZOLE 40 MG TABLET PO SCH ×2 (06:02→18:05)
[2020-06-25] MEDS: MIDODRINE 5 MG TAB PO SCH ×3 (07:29→18:05)
--- NOTE | 2020-06-25 09:23 | P.PN ---
Subjective Patient is seen in follow for acute kidney injury on chronic kidney disease. Renal function a little worse due to diuresis. Dobutamine was discontinued June 23. he is maintained on oral torsemide. Good urine output. No chest pain but remains dyspneic. wants to go home. Vital signs are stable. General: The patient appeared well nourished and normally developed. HEENT: Head exam is unremarkable. Neck is without jugular venous distension. LUNGS: Breath sounds decreased. HEART: Rate and Rhythm are regular. ABDOMEN: soft, nontender. EXTREMITITES: 1+ edema. Objective - Vital Signs Vital signs: Vital Signs Temp 97.8 F 06/25/20 04:35 Pulse 94 06/25/20 04:35 Resp 16 06/25/20 04:35 BP 103/76 06/25/20 04:35 Pulse Ox 97 06/25/20 04:35 Intake & Output 06/24/20 06/25/20 06/25/20 18:59 06:59 18:59 Intake Total 460 240 Output Total 1525 625 Balance -1065 -385 Weight 72.4 kg Intake: IV 160 0.9 NaCl 160 Intake, IV Titration 300 Amount Magnesium Sulfate-D5w Pmx 300 1 gm In Dextrose/Water 1 100ml.bag @ 100 mls/hr IVPB Q1H [facility] Rx#: [id number] Oral 240 Output: Urine 1525 625 Other: Voiding Method Indwelling Catheter Indwelling Catheter Indwelling Catheter - Labs CBC & Chem 7: 06/24/20 06:37 06/25/20 03:42 Labs: Abnormal Lab Results - Last 24 Hours (Table) 06/25/20 06/25/20 Range/Units 03:42 03:42 BUN 30 H (9-20) mg/dL Creatinine 1.61 H (0.66-1.25) mg/dL Glucose 111 H (74-99) mg/dL Magnesium 1.4 L (1.5-2.4) mg/dL Assessment and Plan Plan: Assessment: 1. Acute kidney injury mostly prerenal secondary to cardiorenal syndrome. Renal function little worse due to diuresis. Creatinine 1.6 today. 2. Acute on chronic systolic CHF with ejection fraction of 20-25%. 3. Volume overload. Improved with diuresis. 4. Chronic kidney disease stage III with baseline creatinine near 1.2. Etiology is nephrosclerosis. 5. Hypokalemia secondary to diuresis and hypomagnesemia. improved. 6. Hypomagnesemia secondary to diuresis. better post replacement. Plan: maintain torsemide 40 mg once daily. Replace magnesium. 2 g IV today. maintain magnesium and potassium supplementation. low-salt diet. avoid nephrotoxins. Continue to monitor renal function and urine output. maintain midodrine. repeat BMP and magnesium level 2-3 days postdischarge. Follow up outpatient in 1 week. Hospice being considered. okay to discontinue Palomares catheter and monitor postvoid residuals.
[2020-06-25] MEDS: MAGNESIUM OXIDE 400 MG TAB PO SCH (09:29)
[2020-06-25] MEDS: POTASSIUM CHLORIDE ER 10 MEQ TAB.ER.PRT PO SCH ×2 (09:30→20:08)
[2020-06-25] MEDS: ALPRAZolam 0.25 MG TAB PO PRN ×2 (09:30→20:09)
[2020-06-25] MEDS: METOPROLOL SUCCINATE (ER) 50 MG TAB.ER.24H PO SCH ×2 (09:30→20:09)
[2020-06-25] MEDS: TORSEMIDE 20 MG TAB PO SCH (09:30)
[2020-06-25] MEDS: MAGNESIUM SULFATE-D5W PMX 1 GM in DEXTROSE/WATER 1 100ML.BAG IVPB SCH ×2 (10:47→12:30)
--- NOTE | 2020-06-25 10:58 | P.PN ---
Subjective This is a pleasant 74-year-old male past medical history significant for coronary artery disease, ischemic cardiomyopathy, chronic systolic heart failure and acute kidney injury. He is seen and examined resting comfortably laying flat in no acute distress. He denies symptoms of chest pain or shortness of breath. He continues to have some scattered rales in his lungs. Blood pressure 103/76 heart rate 94 afebrile maintaining oxygen saturation on nasal cannula. Laboratory data reviewed, sodium 140, potassium 3.8, creatinine 1.61 a nd magnesium 1.4. Currently maintained on atorvastatin 80 mg daily, daily magnesium supplementation along with replacement therapy, Toprol 50 mg twice a day, midodrine 10 mg 3 times a day, Brilinta 90 mg twice a day and torsemide 40 mg daily. GENERAL: Well-appearing, well-nourished and in no acute distress. NECK: Supple without JVD or thyromegaly. LUNGS: Scattered crackles, faint expiratory wheeze, no rhonchi. Respiration equal and unlabored. HEART: Regular rate and rhythm without murmurs, rubs or gallops. S1 and S2 heard. EXTREMITIES: Normal range of motion, no edema. No clubbing or cyanosis. Peripheral pulses intact. ASSESSMENT Acute on chronic systolic heart failure Ischemic cardiomyopathy Coronary artery disease Acute kidney injury, improving Hypertension Dyslipidemia COPD Chronic nicotine dependence History of alcohol abuse PLAN Stable on current regimen. Not currently on an DARION or ARB due to renal function. Will address as an outpatient. Follow up with Dr. Turcios upon discharge. Nurse Practitioner note has been reviewed, I agree with a documented findings and plan of care. Patient was seen and examined. Objective - Vital Signs Vital signs: Vital Signs Temp 97.8 F 06/25/20 04:35 Pulse 94 06/25/20 04:35 Resp 16 06/25/20 04:35 BP 103/76 06/25/20 04:35 Pulse Ox 97 06/25/20 04:35 Intake & Output 06/24/20 06/25/20 06/25/20 18:59 06:59 18:59 Intake Total 460 240 Output Total 9765 442 Balance -4657 -060 Weight 72.4 kg Intake: IV 160 0.9 NaCl 160 Intake, IV Titration 300 Amount Magnesium Sulfate-D5w Pmx 300 1 gm In Dextrose/Water 1 100ml.bag @ 100 mls/hr IVPB Q1H [facility] Rx#: [id number] Oral 240 Output: Urine 1525 625 Other: Voiding Method Indwelling Catheter Indwelling Catheter Indwelling Catheter - Labs CBC & Chem 7: 06/24/20 06:37 06/25/20 03:42 Labs: Abnormal Lab Results - Last 24 Hours (Table) 06/25/20 06/25/20 Range/Units 03:42 03:42 BUN 30 H (9-20) mg/dL Creatinine 1.61 H (0.66-1.25) mg/dL Glucose 111 H (74-99) mg/dL Magnesium 1.4 L (1.5-2.4) mg/dL
[2020-06-25] MEDS: SODIUM CHLORIDE 0.9% 1,000 ML IV SCH (12:34)
[2020-06-25] MEDS ORDERED: Magnesium Replacement Protocol 1 EACH MISC MISCELLANE PRN (15:47)
[2020-06-25] MEDS: ATORVASTATIN 80 MG TAB PO SCH (18:05)
--- NOTE | 2020-06-25 20:17 | P.PN ---
Subjective From records She is admitted for generalized weakness. Patient is found to have acute renal failure patient was receiving IV fluids. Patient does have a cut his heart failure EF of around 20-25%. Patient declined to take any medications declined any blood tests. Patient was on 80 mL of normal saline but when I saw his own receiving 40 mL still complaining of shortness of breath which appeared to be chronic clinically still doesn't appear to be in heart failure exacerbation I ordered a chest x-ray after extensive counseling and spending quite a bit of time with the patient counseling her the patient patient is agreeable to get the blood draw. Patient's serum creatinine was around 3.5 yesterday. Nothing available from today 06/18/2020 Patient's creatinine continued to get worse and the presently 5.14. Patient lactic acidosis although improved patient became more confused patient was subsequently transferred to ICU patient potassium went up to 5.4. Patient is being started on dobutamine drip and the patient is also on the sodium bicarbonate IV drip. Patient has rhonchi bilaterally. Pulmonology and nephrology are following the patient. Patient had an ABG which showed severe metabolic acidosis. Patient appears to have uremic encephalopathy 06/19/2020 Patient is more awake and alert and oriented 3 today does have some bibasilar crackles and exam. Chest x-ray did not show any significant abnormality patient says bicarbonate was decreased to 50 and patient is presently on dobutamine drip with improving creatinine, lactic acid was not obtained today. Patient in supplement improved now patient is complaining of fatigue and the discomfort in the left upper abdomen 06/20/2020 Patient overall has significant improvement patient remains on dobutamine 2.5 mcg/kg/m. Patient's serum creatinine is improving came down to 2.53. Patient urine output is better patient was having sundowners and is getting agitated at nighttime patient was started on Seroquel for that of Zyprexa Zydis for that. Patient is also on Percocet every 4 hours the frequency of which will be cut down to every 8 hours hourly patient received Percocet only once today. 06/21/2020 Intake is still on dobutamine patient can use to have improvement in his creatinine presently in 3-7 oxygen patient has good urine output at this time patient present creatinine is 1.79. 06/22/2020 Patient has bilateral pleural effusions patient was started on IV Lasix significant urine output since Lasix. Patient remains on dobutamine drip. Patient creatinine continue to improve, presently 1.54 patient is awake alert and able to provide history 06/23/2020 The history and IV Lasix with significant improvement in patient's present serum creatinine is 1.25 patientjob dobutamine at this time. Patient pulmonary edema improved patient is on room air lung exam improved as well but still has bibasilar crackles still has pulmonary edema on x-ray 06/24/2020 Patient's serum creatinine plan data up today. Patient was switched to oral Demadex. Patient probably will be switched discharged on this medication patient may need home care. Subjective 06/25/2020, this is my first taking care of the patient Patient was sitting in chair, dyspneic and tachypneic however he can't tell comfortably, he was asking to be discharged home, explained to the patient is not ready yet, he wanted his Palomares catheter out which was discontinued post void residual was more than 600, straight cath is applied with possible replacement of Palomares catheter urinary retention. Patient is not sure he wants hospice, Cardiology and nephrology input is appreciated Patient continue on the brilinta and oral Demadex Objective - Vital Signs Vital signs: Vital Signs Temp 97.6 F 06/25/20 11:32 Pulse 80 06/25/20 15:21 Resp 20 06/25/20 11:32 BP 96/66 06/25/20 15:21 Pulse Ox 99 06/25/20 15:21 Intake & Output 06/24/20 06/25/20 06/25/20 18:59 06:59 18:59 Intake Total 460 240 200 Output Total 1525 625 778 Balance -1060 -902 -573 Weight 72.4 kg Intake: IV 160 0.9 NaCl 160 Intake, IV Titration 300 200 Amount Magnesium Sulfate-D5w Pmx 300 1 gm In Dextrose/Water 1 100ml.bag @ 100 mls/hr IVPB Q1H [facility] Rx#: [id number] Magnesium Sulfate-D5w Pmx 200 1 gm In Dextrose/Water 1 100ml.bag @ 100 mls/hr IVPB Q1H [facility] Rx#: [id number] Oral 240 Output: Urine 1525 625 120 Post Void Residual 658 Other: Voiding Method Indwelling Catheter Indwelling Catheter Indwelling Catheter - Exam GENERAL: The patient is alert and oriented x3, not in any acute distress. Well developed, well nourished. HEENT: Pupils are round and equally reacting to light. EOMI. No scleral icterus. No conjunctival pallor. Normocephalic, atraumatic. No pharyngeal erythema. No thyromegaly. CARDIOVASCULAR: S1 and S2 present. No murmurs, rubs, or gallops. -PULMONARY: Chest is clear to auscultation, no wheezing . Bilateral basal crackles. ABDOMEN: Soft, nontender, nondistended, normoactive bowel sounds. No palpable organomegaly. MUSCULOSKELETAL: No joint swelling or deformity. -EXTREMITIES: No cyanosis, clubbing, . Bilateral leg edema, pitting NEUROLOGICAL: Gross neurological examination did not reveal any focal deficits. SKIN: No rashes. no petechiae. - Labs CBC & Chem 7: 06/24/20 06:37 06/25/20 03:42 Labs: Abnormal Lab Results - Last 24 Hours (Table) 06/25/20 06/25/20 Range/Units 03:42 03:42 BUN 30 H (9-20) mg/dL Creatinine 1.61 H (0.66-1.25) mg/dL Glucose 111 H (74-99) mg/dL Magnesium 1.4 L (1.5-2.4) mg/dL Assessment and Plan Assessment: -Acute on chronic systolic CHF with ejection fraction 20-25% associated with bilateral pleural effusions: continue with oral Demadex. 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 Continue with oral Demadex. Continue with oral brilinta Discontinue Palomares catheter upon patient request and check postvoid residual Labs and medication were reviewed.. Continue same treatment. Continue with symptomatic treatment. Resume home medication. Monitor lytes and vitals. DVT and GI prophylaxis. Further recommendations of the clinical course of the patient DVT prophylaxis: Subcutaneous heparin GI Prophylaxis: Pepcid PT/OT: Pending Prognosis is guarded
[2020-06-26] MEDS: TICAGRELOR 90 MG TAB PO SCH ×2 (05:58→17:18)
[2020-06-26] MEDS: PANTOPRAZOLE 40 MG TABLET PO SCH ×2 (05:58→17:18)
[2020-06-26] MEDS: LORATADINE 10 MG TAB PO SCH (05:58)
[2020-06-26] MEDS: ALPRAZolam 0.25 MG TAB PO PRN ×2 (08:57→23:42)
[2020-06-26] MEDS: MIDODRINE 5 MG TAB PO SCH ×3 (08:57→17:15)
[2020-06-26] MEDS: MAGNESIUM OXIDE 400 MG TAB PO SCH (08:57)
[2020-06-26] MEDS: METOPROLOL SUCCINATE (ER) 50 MG TAB.ER.24H PO SCH ×2 (08:57→21:08)
[2020-06-26] MEDS: POTASSIUM CHLORIDE ER 10 MEQ TAB.ER.PRT PO SCH ×2 (08:57→21:09)
[2020-06-26] MEDS: TORSEMIDE 20 MG TAB PO SCH (08:58)
[2020-06-26 09:07] LABS: African American GFR (CKD) 41.7 (60.0-200.0); Anion Gap 14.8 mmol/L (4.00-12.00); BUN/Creat Ratio 21.67 Ratio (12.00-20.00); Calcium 8.9 mg/dL (8.7-10.3); Carbon Dioxide 26.2 mmol/L (21.6-31.8); Magnesium 1.6 mg/dL (1.5-2.4); Potassium 3.8 mmol/L (3.5-5.5)
--- NOTE | 2020-06-26 12:32 | P.PN ---
Subjective Patient is seen in follow for acute kidney injury on chronic kidney disease. Renal function a little worse due to diuresis. also consider for urinary retention. He required straight catheterization last night.Dobutamine was discontinued June 23. he is maintained on oral torsemide. Good urine output. No chest pain but remains dyspneic. wants to go home. Vital signs are stable. General: The patient appeared well nourished and normally developed. HEENT: Head exam is unremarkable. Neck is without jugular venous distension. LUNGS: Breath sounds decreased. HEART: Rate and Rhythm are regular. ABDOMEN: soft, nontender. EXTREMITITES: trace edema. Objective - Vital Signs Vital signs: Vital Signs Temp 98 F 06/26/20 11:31 Pulse 72 06/26/20 11:31 Resp 22 06/26/20 11:31 BP 102/66 06/26/20 11:31 Pulse Ox 100 06/26/20 11:31 Intake & Output 06/25/20 06/26/20 06/26/20 18:59 06:59 18:59 Intake Total 200 690 Output Total 1628 448 680 Balance -1428 242 -680 Intake: Intake, IV Titration 200 Amount Magnesium Sulfate-D5w Pmx 200 1 gm In Dextrose/Water 1 100ml.bag @ 100 mls/hr IVPB Q1H [facility] Rx#: [id number] Oral 690 Output: Urine 970 Straight 850 Post Void Residual 658 448 680 Other: Voiding Method Toilet Toilet Toilet Urinal Urinal Urinal # Voids 1 2 # Bowel Movements 1 - Labs CBC & Chem 7: 06/24/20 06:37 06/26/20 05:11 Labs: Abnormal Lab Results - Last 24 Hours (Table) 06/26/20 Range/Units 05:11 Anion Gap 14.80 H (4.00-12.00) mmol/L BUN 39.0 H (9.0-27.0) mg/dL Creatinine 1.8 H (0.6-1.5) mg/dL Est GFR (CKD-EPI)AfAm 41.7 L (60.0-200.0) Est GFR (CKD-EPI)NonAf 36.0 L (60.0-200.0) BUN/Creatinine Ratio 21.67 H (12.00-20.00) Ratio Glucose 124 H (70-110) mg/dL Assessment and Plan Plan: Assessment: 1. Acute kidney injury mostly prerenal secondary to cardiorenal syndrome. Renal function little worse due to diuresis. also component of urinary retention. C reatinine 1.8 today. 2. Acute on chronic systolic CHF with ejection fraction of 20-25%. 3. Volume overload. Improved with diuresis. 4. Chronic kidney disease stage III with baseline creatinine near 1.2. Etiology is nephrosclerosis. 5. Hypokalemia secondary to diuresis and hypomagnesemia. improved. 6. Hypomagnesemia secondary to diuresis. better post replacement. Plan: I would decrease torsemide to 20 mg once daily. maintain magnesium and potassium supplementation. low-salt diet. avoid nephrotoxins. Continue to monitor renal function and urine output. maintain midodrine. monitor bladder scans and insert Palomares catheter if more than 300 mL urine present. repeat BMP and magnesium level 2-3 days postdischarge. Follow up outpatient in 1 week.
[2020-06-26] MEDS: HYDROcodone/APAP 5-325MG 1 EACH TAB PO PRN ×2 (14:17→23:42)
[2020-06-26] MEDS: SODIUM CHLORIDE 0.9% 1,000 ML IV SCH (16:17)
[2020-06-26] MEDS: ATORVASTATIN 80 MG TAB PO SCH (17:19)
[2020-06-26] MEDS: TAMSULOSIN 0.4 MG CAP.ER.24H PO SCH ×2 (18:49→18:54)
--- NOTE | 2020-06-26 21:03 | P.PN ---
Subjective From records She is admitted for generalized weakness. Patient is found to have acute renal failure patient was receiving IV fluids. Patient does have a cut his heart failure EF of around 20-25%. Patient declined to take any medications declined any blood tests. Patient was on 80 mL of normal saline but when I saw his own receiving 40 mL still complaining of shortness of breath which appeared to be chronic clinically still doesn't appear to be in heart failure exacerbation I ordered a chest x-ray after extensive counseling and spending quite a bit of time with the patient counseling her the patient patient is agreeable to get the blood draw. Patient's serum creatinine was around 3.5 yesterday. Nothing available from today 06/18/2020 Patient's creatinine continued to get worse and the presently 5.14. Patient lactic acidosis although improved patient became more confused patient was subsequently transferred to ICU patient potassium went up to 5.4. Patient is being started on dobutamine drip and the patient is also on the sodium bicarbonate IV drip. Patient has rhonchi bilaterally. Pulmonology and nephrology are following the patient. Patient had an ABG which showed severe metabolic acidosis. Patient appears to have uremic encephalopathy 06/19/2020 Patient is more awake and alert and oriented 3 today does have some bibasilar crackles and exam. Chest x-ray did not show any significant abnormality patient says bicarbonate was decreased to 50 and patient is presently on dobutamine drip with improving creatinine, lactic acid was not obtained today. Patient in supplement improved now patient is complaining of fatigue and the discomfort in the left upper abdomen 06/20/2020 Patient overall has significant improvement patient remains on dobutamine 2.5 mcg/kg/m. Patient's serum creatinine is improving came down to 2.53. Patient urine output is better patient was having sundowners and is getting agitated at nighttime patient was started on Seroquel for that of Zyprexa Zydis for that. Patient is also on Percocet every 4 hours the frequency of which will be cut down to every 8 hours hourly patient received Percocet only once today. 06/21/2020 Intake is still on dobutamine patient can use to have improvement in his creatinine presently in 3-7 oxygen patient has good urine output at this time patient present creatinine is 1.79. 06/22/2020 Patient has bilateral pleural effusions patient was started on IV Lasix significant urine output since Lasix. Patient remains on dobutamine drip. Patient creatinine continue to improve, presently 1.54 patient is awake alert and able to provide history 06/23/2020 The history and IV Lasix with significant improvement in patient's present serum creatinine is 1.25 patientjob dobutamine at this time. Patient pulmonary edema improved patient is on room air lung exam improved as well but still has bibasilar crackles still has pulmonary edema on x-ray 06/24/2020 Patient's serum creatinine plan data up today. Patient was switched to oral Demadex. Patient probably will be switched discharged on this medication patient may need home care. Subjective 06/25/2020, this is my first taking care of the patient Patient was sitting in chair, dyspneic and tachypneic however he can't tell comfortably, he was asking to be discharged home, explained to the patient is not ready yet, he wanted his Palomares catheter out which was discontinued post void residual was more than 600, straight cath is applied with possible replacement of Palomares catheter urinary retention. Patient is not sure he wants hospice, Cardiology and nephrology input is appreciated Patient continue on the brilinta and oral Demadex 06/26/2020 Patient is awake and alert to time place and person, he still have some dyspnea especially with exertion, Palomares catheter has to be reinserted because of urinary retention, I explained to the patient the importance of keeping the Palomares and he agrees. His creatinine went up to 1.8 and Testim Adoxa was lowered to 20 mg daily. I spoke with the patient today and significant other Nehal at bedside about the plan of care. Patient refuses hospice for now and he agrees to go to subacute rehab. Discussed with the staff and health social work professor was consulted. Possible discharge in 24-48 hours Objective - Vital Signs Vital signs: Vital Signs Temp 98 F 06/26/20 11:31 Pulse 72 06/26/20 11:31 Resp 22 06/26/20 11:31 BP 102/66 06/26/20 11:31 Pulse Ox 100 06/26/20 11:31 Intake & Output 06/25/20 06/26/20 06/26/20 18:59 06:59 18:59 Intake Total 200 690 Output Total 1628 400 680 Balance -1428 242 -680 Intake: Intake, IV Titration 200 Amount Magnesium Sulfate-D5w Pmx 200 1 gm In Dextrose/Water 1 100ml.bag @ 100 mls/hr IVPB Q1H [facility] Rx#: [id number] Oral 690 Output: Urine 970 Straight 850 Post Void Residual 658 448 680 Other: Voiding Method Toilet Toilet Indwelling Catheter Urinal Urinal # Voids 1 2 # Bowel Movements 1 - Exam GENERAL: The patient is alert and oriented x3, not in any acute distress. Well developed, well nourished. HEENT: Pupils are round and equally reacting to light. EOMI. No scleral icterus. No conjunctival pallor. Normocephalic, atraumatic. No pharyngeal erythema. No thyromegaly. CARDIOVASCULAR: S1 and S2 present. No murmurs, rubs, or gallops. -PULMONARY: Chest is clear to auscultation, no wheezing . Bilateral basal crackles. ABDOMEN: Soft, nontender, nondistended, normoactive bowel sounds. No palpable organomegaly. MUSCULOSKELETAL: No joint swelling or deformity. -EXTREMITIES: No cyanosis, clubbing, . Bilateral leg edema, pitting NEUROLOGICAL: Gross neurological examination did not reveal any focal deficits. SKIN: No rashes. no petechiae. - Labs CBC & Chem 7: 06/24/20 06:37 06/26/20 05:11 Labs: Abnormal Lab Results - Last 24 Hours (Table) 06/26/20 Range/Units 05:11 Anion Gap 14.80 H (4.00-12.00) mmol/L BUN 39.0 H (9.0-27.0) mg/dL Creatinine 1.8 H (0.6-1.5) mg/dL Est GFR (CKD-EPI)AfAm 41.7 L (60.0-200.0) Est GFR (CKD-EPI)NonAf 36.0 L (60.0-200.0) BUN/Creatinine Ratio 21.67 H (12.00-20.00) Ratio Glucose 124 H (70-110) mg/dL Assessment and Plan Assessment: -Acute on chronic systolic CHF with ejection fraction 20-25% associated with bilateral pleural effusions: continue with oral Demadex. 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 Continue with oral Demadex. Continue with oral brilinta Discontinue Palomares catheter upon patient request and check postvoid residual Labs and medication were reviewed.. Continue same treatment. Continue with symptomatic treatment. Resume home medication. Monitor lytes and vitals. DVT and GI prophylaxis. Further recommendations of the clinical course of the patient DVT prophylaxis: Subcutaneous heparin GI Prophylaxis: Pepcid PT/OT: Pending Prognosis is guarded
[2020-06-27 05:04] VITALS: RESP 16
[2020-06-27] MEDS: TICAGRELOR 90 MG TAB PO SCH (05:50)
[2020-06-27] MEDS: LORATADINE 10 MG TAB PO SCH (05:50)
[2020-06-27] MEDS: HYDROcodone/APAP 5-325MG 1 EACH TAB PO PRN ×2 (05:50→12:23)
[2020-06-27] MEDS: PANTOPRAZOLE 40 MG TABLET PO SCH (05:50)
[2020-06-27] MEDS: MAGNESIUM OXIDE 400 MG TAB PO SCH (07:50)
[2020-06-27] MEDS: METOPROLOL SUCCINATE (ER) 50 MG TAB.ER.24H PO SCH (07:50)
[2020-06-27] MEDS: POTASSIUM CHLORIDE ER 10 MEQ TAB.ER.PRT PO SCH (07:50)
[2020-06-27] MEDS: MIDODRINE 5 MG TAB PO SCH ×2 (07:51→12:15)
[2020-06-27] MEDS ORDERED: TORSEMIDE 20 MG TAB PO SCH (09:00)
[2020-06-27 11:11] LABS: African American GFR (CKD) 41.7 (60.0-200.0); Anion Gap 11.1 mmol/L (4.00-12.00); BUN/Creat Ratio 23.89 Ratio (12.00-20.00); Calcium 8.6 mg/dL (8.7-10.3); Carbon Dioxide 30.9 mmol/L (21.6-31.8); Magnesium 1.3 mg/dL (1.5-2.4); Potassium 3.5 mmol/L (3.5-5.5)
[2020-06-27] MEDS ORDERED: POTASSIUM CHLORIDE ER 20 MEQ TAB.ER PO STA (11:25)
--- NOTE | 2020-06-27 11:26 | P.PN ---
Subjective Patient is seen in follow for acute kidney injury on chronic kidney disease. Renal function stable. Palomares catheter placed yesterday for urinary retention. he is maintained on oral torsemide. Good urine output. No chest pain but remains dyspneic. wants to go home. Vital signs are stable. General: The patient appeared well nourished and normally developed. HEENT: Head exam is unremarkable. Neck is without jugular venous distension. LUNGS: Breath sounds decreased. HEART: Rate and Rhythm are regular. ABDOMEN: soft, nontender. EXTREMITITES: trace edema. Objective - Vital Signs Vital signs: Vital Signs Temp 97.8 F 06/27/20 05:00 Pulse 68 06/27/20 08:00 Resp 16 06/27/20 08:00 BP 94/65 06/27/20 05:00 Pulse Ox 99 06/27/20 05:00 Intake & Output 06/26/20 06/27/20 06/27/20 18:59 06:59 18:59 Intake Total 590 240 Output Total 680 1650 850 Balance -085 -5939 -610 Intake: Oral 590 240 Output: Urine 1650 850 Straight 850 Post Void Residual 680 Other: Voiding Method Indwelling Catheter Indwelling Catheter Indwelling Catheter # Voids 2 2 # Bowel Movements 1 - Labs CBC & Chem 7: 06/24/20 06:37 06/27/20 06:31 Labs: Abnormal Lab Results - Last 24 Hours (Table) 06/27/20 Range/Units 06:31 BUN 43.0 H (9.0-27.0) mg/dL Creatinine 1.8 H (0.6-1.5) mg/dL Est GFR (CKD-EPI)AfAm 41.7 L (60.0-200.0) Est GFR (CKD-EPI)NonAf 36.0 L (60.0-200.0) BUN/Creatinine Ratio 23.89 H (12.00-20.00) Ratio Calcium 8.6 L (8.7-10.3) mg/dL Magnesium 1.3 L (1.5-2.4) mg/dL Assessment and Plan Plan: Assessment: 1. Acute kidney injury mostly prerenal secondary to cardiorenal syndrome. also component of urinary retention. renal function stable - creatinine 1.8 today. 2. Acute on chronic systolic CHF with ejection fraction of 20-25%. 3. Volume overload. Improved with diuresis. 4. Chronic kidney disease stage III with baseline creatinine near 1.2. Etiology is nephrosclerosis. 5. Hypokalemia secondary to diuresis and hypomagnesemia. 6. Hypomagnesemia secondary to diuresis. Plan: maintain torsemide 20 mg once daily. replace potassium. additional 40 mg today. Replace magnesium. 3 g IV today. continue with maintenance potassium and magnesium supplementation. low-salt diet. avoid nephrotoxins. Continue to monitor renal function and urine output. maintain midodrine. discontinue Palomares catheter as patient is able to do self catheterizations at home. repeat BMP and magnesium level 2-3 days postdischarge. Follow up outpatient in 1 week.
[2020-06-27] MEDS: MAGNESIUM SULFATE-D5W PMX 1 GM in DEXTROSE/WATER 1 100ML.BAG IVPB SCH ×2 (12:16→14:16)
[2020-06-27] MEDS: ALPRAZolam 0.25 MG TAB PO PRN (12:23)
--- NOTE | 2020-06-27 15:49 | P.DS ---
Providers Date of admission: 06/15/20 18:58 Attending physician: Mitchell John Consults: 06/15/20 18:56 Consult Physician Routine Consulting Provider: Adeel Perez Consult Reason/Comments: copd exacerbation Do you want consulting provider notified?: Yes Consult Physician Routine Consulting Provider: Gemma Lane Consult Reason/Comments: nadege Do you want consulting provider notified?: Yes Primary care physician: Dannie Urbina [facility] Course: Diagnoses: -Acute on chronic systolic CHF with ejection fraction 20-25% associated with bilateral pleural effusions: continue with oral Demadex. Cardiology and nephrology and pulmonary evaluated patient. Prognosis is very poor and patient is getting close to end-stage. -Encephalopathy: resolved -Acute renal failure: Secondary to cardiorenal syndrome continue with Demadex -Generalized weakness can be related to acute renal failure, patient although does have chronic weakness -Urinary retention , discontinue Palomares catheter upon patient request and continue with straight cath 3-4 times a day , which could be done by the patient himself upon his request. 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 Found to have acute on chronic heart failure with acute hypoxic respiratory failure. Patient initially was admitted to the ICU when he was treated with dobutamine drip and sodium bicarbonate IV drip. Patient was followed closely by cardiology, pulmonary/critical care and nephrology team. Patient breathing improved and he was transferred to the general medical floor however patient has persistent dyspnea and mild at rest and more at exertion, despite being on optimal diuretics. Also patient has chronic kidney disease. Patient kept on small dose of Demadex as per nephrology recommendation. Patient felt to get close to end stage and palliative care options were discussed with the patient, he does not want hospice for now however he agrees to go to [facility] for subacute rehab. Also patient is fully awake and oriented. Patient has recurrent urinary retention and Palomares catheter has to be placed back. Patient might benefit from urology follow-up as an outpatient Patient remained clinically stable and he was cleared for discharge by all consultants including pulmonary, cardiology and nephrology Problems and management plan were discussed with the patient and he verbalized understanding and acceptance Patient was found stable and can be discharged home however he needs follow-up as an outpatient. Patient was instructed to follow up with PCP within one week and patient agrees. Patient was instructed to follow up with Dr. Turcios in [address] Perez the medical billing clerk in [address] Hidalgo the neurological surgery teacher in 1-2 weeks and he agrees with this recommendation. Appointments will be made by patient or ECF staff Gen: patient is a AAOx3, no distress CVS: S1-S2, RRR, no murmur Lungs: B/L CTA, no wheezing Abdomen: soft, no distention, no tenderness, positive bowel sounds Extremity: no leg edema or induration Time spent more than 35 minutes Patient Condition at Discharge: Fair Plan - Discharge Summary Discharge Rx Participant: Yes New Discharge Prescriptions: New Torsemide [Demadex] 40 mg PO DAILY #30 tab Potassium Chloride ER [K-Dur 10] 10 meq PO BID #60 tab.er.prt Continue Omeprazole [PriLOSEC] 20 mg PO BID@0530,1730 Cetirizine HCl [Zyrtec] 10 mg PO DAILY@0530 Ticagrelor [Brilinta] 90 mg PO BID@0530,1730 Atorvastatin Calcium [Lipitor] 80 mg PO HS@1730 Tamsulosin [Flomax] 0.4 mg PO DAILY@0530 Midodrine [ProAmatine] 2.5 mg PO TID Magnesium Oxide [Mag-Ox] 400 mg PO BID@0530,1730 ALPRAZolam [Xanax] 0.5 mg PO BID PRN PRN Reason: Anxiety Metoprolol Succinate (ER) [Toprol XL] 50 mg PO DAILY@0530 Discontinued Baclofen [Lioresal] 10 mg PO BID@0530,1730 Loratadine 10 mg PO DAILY@0530 Furosemide [Lasix] 40 mg PO DAILY@0530 #0 Discharge Medication List Omeprazole [PriLOSEC] 20 mg PO BID@0530,1730 07/19/16 [History] Atorvastatin Calcium [Lipitor] 80 mg PO HS@1730 10/30/19 [History] Cetirizine HCl [Zyrtec] 10 mg PO DAILY@0530 10/30/19 [History] Ticagrelor [Brilinta] 90 mg PO BID@05,17310/30/19 [History] Tamsulosin [Flomax] 0.4 mg PO DAILY@52901/27/20 [History] Magnesium Oxide [Mag-Ox] 400 mg PO BID@0530,1730 03/25/20 [History] Midodrine [ProAmatine] 2.5 mg PO TID 03/25/20 [History] ALPRAZolam [Xanax] 0.5 mg PO BID PRN 06/15/20 [History] Metoprolol Succinate (ER) [Toprol XL] 50 mg PO DAILY@52906/15/20 [History] Potassium Chloride ER [K-Dur 10] 10 meq PO BID #60 tab.er.prt 06/24/20 [Rx] Torsemide [Demadex] 40 mg PO DAILY #30 tab 06/24/20 [Rx] Follow up Appointment(s)/Referral(s): Carlitos Pandey MD [Primary Care Provider] - 1-2 days [facility], [NON-STAFF] - Sumit Hiadlgo DO [STAFF PHYSICIAN] - 1 Week Activity/Diet/Wound Care/Special Instructions: Heart healthy diet Activity is limited till you see your doctor Discharge Disposition: TRANSFER TO SNF/ECF
[2020-06-27 15:54] VITALS: BP 90/64; PULSE 68; TEMP 97.8
[2020-06-27] MEDS ORDERED: MAGNESIUM OXIDE 400 MG TAB PO SCH (21:00)
== END 2020-06-27 18:16 | disposition left against medical advice (07) | DRG 682 ==
LOC: EC 16:44 → 3SCARD 18:58 → 2SICU 06-18 10:28 → 6NMEDSUR 06-24 21:16
PROVIDERS: ADMIT Internal Medicine; ATTEND Internal Medicine
DX: N17.0 Acute kidney failure with tubular necrosis (principal); I50.23 Acute on chronic systolic (congestive) heart failure; G93.41 Metabolic encephalopathy; I13.0 Hypertensive heart and chronic kidney disease with heart failure and stage 1 through stage 4 chronic kidney disease, or unspecified chronic kidney disease; E87.2 Acidosis; I48.20 Chronic atrial fibrillation, unspecified; N18.4 Chronic kidney disease, stage 4 (severe); N13.30 Unspecified hydronephrosis; F17.200 Nicotine dependence, unspecified, uncomplicated; F03.90 Unspecified dementia, unspecified severity, without behavioral disturbance, psychotic disturbance, mood disturbance, and anxiety; I25.10 Atherosclerotic heart disease of native coronary artery without angina pectoris; I27.29 Other secondary pulmonary hypertension; K21.9 Gastro-esophageal reflux disease without esophagitis; N40.0 Benign prostatic hyperplasia without lower urinary tract symptoms; E78.5 Hyperlipidemia, unspecified; N39.498 Other specified urinary incontinence; E87.5 Hyperkalemia; M51.36 Other intervertebral disc degeneration, lumbar region; G31.9 Degenerative disease of nervous system, unspecified; E87.6 Hypokalemia; I95.89 Other hypotension; F10.10 Alcohol abuse, uncomplicated; K76.9 Liver disease, unspecified; T50.2X5A Adverse effect of carbonic-anhydrase inhibitors, benzothiadiazides and other diuretics, initial encounter; E83.42 Hypomagnesemia; J44.9 Chronic obstructive pulmonary disease, unspecified; E86.0 Dehydration; D63.1 Anemia in chronic kidney disease; I25.5 Ischemic cardiomyopathy; I08.1 Rheumatic disorders of both mitral and tricuspid valves; R29.6 Repeated falls; R26.9 Unspecified abnormalities of gait and mobility; I44.0 Atrioventricular block, first degree; I25.2 Old myocardial infarction; Z79.899 Other long term (current) drug therapy; Z79.02 Long term (current) use of antithrombotics/antiplatelets; Z87.01 Personal history of pneumonia (recurrent); Z87.440 Personal history of urinary (tract) infections; Z90.89 Acquired absence of other organs; Z98.890 Other specified postprocedural states; Z98.49 Cataract extraction status, unspecified eye; Z82.49 Family history of ischemic heart disease and other diseases of the circulatory system; Z82.3 Family history of stroke; Z98.61 Coronary angioplasty status
CPT/HCPCS: 36415; 36600; 70450; 71045; 71046; 76770; 80048; 80053; 81001; 82803; 82805; 83605; 83735; 83880; 84100; 84484; 85025; 85027; 85610; 85730; 87086; 93005; 94640; 96361; 96374; 99285

== ENCOUNTER 2020-06-30 15:29 | Inpatient (IN) | payer MEDICARE, OTHER ==
--- NOTE | 2020-06-30 17:05 | XR ---
EXAMINATION TYPE: XR chest 2V DATE OF EXAM: 06/30/2020 COMPARISON: 06/24/2020 HISTORY: Difficulty breathing TECHNIQUE: 2 views FINDINGS: There is blunting right costophrenic angle. Heart is enlarged. There is no gross heart fail ure. There is also small left pleural effusion. There are no hilar masses. IMPRESSION: Bilateral pleural effusions larger on the right side appear increased slightly compared t o recent exam. No obvious heart failure. Stable cardiomegaly.
[2020-06-30] MEDS ORDERED: IPRATROPIUM-ALBUTEROL 3 ML NEB INHALATION STA (17:18)
--- NOTE | 2020-06-30 17:21 | ED ---
SOB HPI - General Chief Complaint: Shortness of Breath Stated Complaint: sent by pcp Time Seen by Provider: 06/30/20 17:00 Source: patient, RN notes reviewed, old records reviewed Mode of arrival: wheelchair Limitations: no limitations - History of Present Illness Initial Comments: This is a 74-year-old male history of COPD Acute kidney injury recent admission who was discharged AMA 3 days ago who complains of shortness of breath exertional dyspnea. He states he has a cough is nonproductive. No fevers chills or sweats he has left-sided anterior chest pain he can point to the spot.. Complaint: shortness of breath - Related Data Home Medications Medication Instructions Recorded Confirmed Omeprazole [PriLOSEC] 20 mg PO BID@0530,1730 07/19/16 06/30/20 Atorvastatin Calcium [Lipitor] 80 mg PO HS@172910/30/19 06/30/20 Cetirizine HCl [Zyrtec] 10 mg PO DAILY@0530 10/30/19 06/30/20 Ticagrelor [Brilinta] 90 mg PO BID@0530,17310/30/19 06/30/20 Tamsulosin [Flomax] 0.4 mg PO DAILY@0530 01/27/20 06/30/20 Magnesium Oxide [Mag-Ox] 400 mg PO BID@0530,17303/25/20 06/30/20 Midodrine [ProAmatine] 2.5 mg PO TID@0530,1200,1730 03/25/20 06/30/20 ALPRAZolam [Xanax] 0.5 mg PO BID PRN 06/15/20 06/30/20 Metoprolol Succinate (ER) [Toprol 50 mg PO DAILY@0530 06/15/20 06/30/20 XL] Potassium Chloride ER [K-Dur 10] 10 meq PO BID@0530,17306/30/20 06/30/20 Torsemide [Demadex] 20 mg PO DAILY@0530 06/30/20 06/30/20 Previous Rx's Medication Instructions Recorded QUEtiapine [SEROquel] 25 mg PO HS PRN tab 06/27/20 Allergies Allergy/AdvReac Type Severity Reaction Status Date / Time No Known Allergies Allergy Verified 09/28/20 18:06 Review of Systems ROS Statement: Those systems with pertinent positive or pertinent negative responses have been documented in the HPI. ROS Other: All systems not noted in ROS Statement are negative. Past Medical History Past Medical History: Coronary Artery Disease (CAD), Chest Pain / Angina, Heart Failure, COPD, GERD/Reflux, Hyperlipidemia, Hypertension, Liver Disease, Myocardial Infarction (MN), Osteoarthritis (OA), Pneumonia Additional Past Medical History / Comment(s): 06/15/20 pt states he self caths once in awhile at homeCoronary artery disease with previous stenting of the LAD. The patient was investigated and declined for bypass surgery in the past, CHF with an ejection fraction of 20-25%, chronic stage IV kidney disease, BPH, secondary pulmonary hypertension, chronic atrial fibrillation, chronic anemia, COPD, chronic obstructive uropathy secondary to BPH and the patient does self- catheterization at home, osteoarthritis, generalized weakness and episodes of falls Last Myocardial Infarction Date:: 2015 History of Any Multi-Drug Resistant Organisms: None Reported Past Surgical History: Adenoidectomy, Heart Catheterization, Hernia Repair, Tonsillectomy Additional Past Surgical History / Comment(s): COLONOSCOPY,CATARACTS. recent heart cath -has triple vessel disease-no sx as of yet. Past Anesthesia/Blood Transfusion Reactions: No Reported Reaction Date of Last Stent Placement:: 2015 Past Psychological History: No Psychological Hx Reported Smoking Status: Current some day smoker - Past Family History Mother Family Medical History: Myocardial Infarction (MN) Additional Family Medical History / Comment(s): Mother had a MN in her 80s and . Brother(s) Family Medical History: CVA/TIA Sister(s) Family Medical History: CVA/TIA Father Family Medical History: No Reported History Additional Family Medical History / Comment(s): Father when pt was young from a drowning. General Exam - General Exam Comments Initial Comments: This is a well-developed well-nourished awake alert oriented times 3 male Limitations: no limitations General appearance: alert, anxious, in distress Head exam: Present: atraumatic, normocephalic, normal inspection Eye exam: Present: normal appearance, PERRL, EOMI. Absent: scleral icterus, conjunctival injection, periorbital swelling ENT exam: Present: normal exam, mucous membranes moist Neck exam: Present: normal inspection, full ROM, other (No stridor JVD or bruits). Absent: tenderness, meningismus, lymphadenopathy Respiratory exam: Present: rales (Left lower lobe), chest wall tenderness, decreased breath sounds. Absent: respiratory distress, wheezes, rhonchi, stridor Cardiovascular Exam: Present: regular rate, normal rhythm, normal heart sounds. Absent: systolic murmur, diastolic murmur, rubs, gallop, clicks GI/Abdominal exam: Present: soft, normal bowel sounds. Absent: distended, tenderness, guarding, rebound, rigid Extremities exam: Present: normal inspection, full ROM, normal capillary refill. Absent: tenderness, pedal edema, joint swelling, calf tenderness Back exam: Present: normal inspection Neurological exam: Present: alert, oriented X3, CN II-XII intact Psychiatric exam: Present: normal affect, normal mood Skin exam: Present: warm, dry, intact, normal color. Absent: rash Course Vital Signs 06/30/20 06/30/20 06/30/20 16:00 17:54 18:02 Temperature 97.6 F Pulse Rate 96 86 86 Respiratory 18 Rate Blood Pressure 107/73 O2 Sat by Pulse 98 Oximetry 06/30/20 18:27 Temperature Pulse Rate 89 Respiratory 18 Rate Blood Pressure 111/75 O2 Sat by Pulse 98 Oximetry Medical Decision Making - Medical Decision Making Patient did get some improvement of breathing he still have dyspnea and orthopnea. Patient be admitted I did discuss case with Dr. Huerta. - Lab Data Result diagrams: 06/30/20 17:18 06/30/20 17:18 Lab Results 06/30/20 06/30/20 06/30/20 Range/Units 17:18 17:18 17:18 WBC 9.1 (3.8-10.6) k/uL RBC 4.12 L (4.30-5.90) m/uL Hgb 9.3 L (13.0-17.5) gm/dL Hct 31.2 L (39.0-53.0) % MCV 75.7 L (80.0-100.0) fL MCH 22.7 L (25.0-35.0) pg MCHC 29.9 L (31.0-37.0) g/dL RDW 19.0 H (11.5-15.5) % Plt Count 228 (150-450) k/uL Neutrophils % 75 % Lymphocytes % 16 % Monocytes % 6 % Eosinophils % 1 % Basophils % 1 % Neutrophils # 6.9 (1.3-7.7) k/uL Lymphocytes # 1.4 (1.0-4.8) k/uL Monocytes # 0.5 (0-1.0) k/uL Eosinophils # 0.1 (0-0.7) k/uL Basophils # 0.1 (0-0.2) k/uL Hypochromasia Marked Poikilocytosis Moderate Anisocytosis Slight Microcytosis Moderate PT 12.7 H (9.0-12.0) sec INR 1.3 H (<1.2) APTT 23.8 (22.0-30.0) sec D-Dimer 1.33 H (<0.60) mg/L FEU Sodium 141 (137-145) mmol/L Potassium 3.7 (3.5-5.1) mmol/L Chloride 100 (98-107) mmol/L Carbon Dioxide 33 H (22-30) mmol/L Anion Gap 8 mmol/L BUN 31 H (9-20) mg/dL Creatinine 1.32 H (0.66-1.25) mg/dL Est GFR (CKD-EPI)AfAm 61 (>60 ml/min/1.73 sqM) Est GFR (CKD-EPI)NonAf 53 (>60 ml/min/1.73 sqM) Glucose 121 H (74-99) mg/dL Plasma Lactic Acid Alexey (0.7-2.0) mmol/L Calcium 9.2 (8.4-10.2) mg/dL Magnesium 1.4 L (1.6-2.3) mg/dL Total Bilirubin 1.2 (0.2-1.3) mg/dL AST 39 (17-59) U/L ALT 24 (4-49) U/L Alkaline Phosphatase 163 H (38-126) U/L Creatine Kinase 64 (55-170) U/L Troponin I (0.000-0.034) ng/mL Total Protein 7.4 (6.3-8.2) g/dL Albumin 4.0 (3.5-5.0) g/dL 06/30/20 06/30/20 Range/Units 17:18 17:18 WBC (3.8-10.6) k/uL RBC (4.30-5.90) m/uL Hgb (13.0-17.5) gm/dL Hct (39.0-53.0) % MCV (80.0-100.0) fL MCH (25.0-35.0) pg MCHC (31.0-37.0) g/dL RDW (11.5-15.5) % Plt Count (150-450) k/uL Neutrophils % % Lymphocytes % % Monocytes % % Eosinophils % % Basophils % % Neutrophils # (1.3-7.7) k/uL Lymphocytes # (1.0-4.8) k/uL Monocytes # (0-1.0) k/uL Eosinophils # (0-0.7) k/uL Basophils # (0-0.2) k/uL Hypochromasia Poikilocytosis Anisocytosis Microcytosis PT (9.0-12.0) sec INR (<1.2) APTT (22.0-30.0) sec D-Dimer (<0.60) mg/L FEU Sodium (137-145) mmol/L Potassium (3.5-5.1) mmol/L Chloride (98-107) mmol/L Carbon Dioxide (22-30) mmol/L Anion Gap mmol/L BUN (9-20) mg/dL Creatinine (0.66-1.25) mg/dL Est GFR (CKD-EPI)AfAm (>60 ml/min/1.73 sqM) Est GFR (CKD-EPI)NonAf (>60 ml/min/1.73 sqM) Glucose (74-99) mg/dL Plasma Lactic Acid Alexey 1.6 (0.7-2.0) mmol/L Calcium (8.4-10.2) mg/dL Magnesium (1.6-2.3) mg/dL Total Bilirubin (0.2-1.3) mg/dL AST (17-59) U/L ALT (4-49) U/L Alkaline Phosphatase (38-126) U/L Creatine Kinase (55-170) U/L Troponin I 0.048 H* (0.000-0.034) ng/mL Total Protein (6.3-8.2) g/dL Albumin (3.5-5.0) g/dL - EKG Data -: EKG Interpreted by Me EKG shows normal: sinus rhythm (Sinus rhythm with PVCs rate 92. Interval and 14 QRS duration 116 daily since QTC 360/445) axis pulmonary disease pattern nonspecific T-wave configuration) - Radiology Data Radiology results: report reviewed (Imaging reviewed the patient does have evidence of pleural effusions more on the right the left), image reviewed Disposition Clinical Impression: Acute exacerbation of chronic obstructive pulmonary disease, Pleural effusion, Renal insufficiency syndrome, Elevated troponin, Elevated d-dimer Disposition: ADMITTED IP TO THIS HOSP Condition: Fair Referrals: Carlitos Pandey MD [Primary Care Provider] - 1-2 days
[2020-06-30 17:44] LABS: Anisocytosis Slight; Basophils # (A) 0.1 k/uL (0-0.2); Basophils % (A) 1 %; Eosinophils # (A) 0.1 k/uL (0-0.7); Eosinophils % (A) 1 %; HCT 31.2 % (39.0-53.0); HGB 9.3 gm/dL (13.0-17.5); Hypochromasia Marked; Lymphocytes # (A) 1.4 k/uL (1.0-4.8); Lymphocytes % (A) 16 %; MCH 22.7 pg (25.0-35.0); MCHC 29.9 g/dL (31.0-37.0); MCV 75.7 fL (80.0-100.0); Mean Platelet Volume 8.5; Microcytosis Moderate; Monocytes # (A) 0.5 k/uL (0-1.0); Monocytes % (A) 6 %; Neutrophils # (A) 6.9 k/uL (1.3-7.7); Neutrophils % (A) 75 %; Platelet Count 228 k/uL (150-450); Poikilocytosis Moderate; RBC 4.12 m/uL (4.30-5.90); WBC 9.1 k/uL (3.8-10.6)
[2020-06-30 17:55] LABS: Calcium 9.2 mg/dL (8.4-10.2); Magnesium 1.4 mg/dL (1.6-2.3); Potassium 3.7 mmol/L (3.5-5.1); Total Bilirubin 1.2 mg/dL (0.2-1.3); Total Protein 7.4 g/dL (6.3-8.2)
[2020-06-30 18:06] LABS: INR 1.3 (<1.2); Partial Thromboplastin Time 23.8 sec (22.0-30.0); Prothrombin Time 12.7 sec (9.0-12.0)
[2020-06-30 18:07] LABS: D-Dimer 1.33 mg/L FEU (<0.60)
[2020-06-30] MEDS: MAGNESIUM SULFATE-D5W PMX 1 GM in DEXTROSE/WATER 1 100ML.BAG IVPB SCH ×2 (19:15→21:11)
[2020-06-30] MEDS ORDERED: HEPARIN SODIUM,PORCINE 5,000 UNIT/ML 1 ML VIAL IV PRN (20:16)
[2020-06-30] MEDS ORDERED: HEPARIN SODIUM,PORCINE 5,000 UNIT/ML 1 ML VIAL IV ONE (20:16)
[2020-06-30] MEDS ORDERED: QUEtiapine 25 MG TAB PO PRN (20:16)
[2020-06-30] MEDS ORDERED: HEPARIN SOD,PORK IN 0.45% NACL 25,000 UNIT in 0.45% NACL 1 250ML.BAG IV SCH (20:30)
[2020-06-30] MEDS: ALPRAZolam 0.5 MG TAB PO PRN (21:15)
[2020-06-30] MEDS: IPRATROPIUM-ALBUTEROL 3 ML NEB INHALATION SCH (23:54)
[2020-07-01] MEDS: IPRATROPIUM-ALBUTEROL 3 ML NEB INHALATION SCH ×6 (04:10→23:37)
[2020-07-01] MEDS: LORATADINE 10 MG TAB PO SCH (06:14)
[2020-07-01] MEDS: MIDODRINE 5 MG TAB PO SCH ×3 (06:14→16:44)
[2020-07-01] MEDS: METOPROLOL SUCCINATE (ER) 50 MG TAB.ER.24H PO SCH (06:14)
[2020-07-01] MEDS: PANTOPRAZOLE 40 MG TABLET PO SCH ×2 (06:14→16:44)
[2020-07-01] MEDS: TAMSULOSIN 0.4 MG CAP.ER.24H PO SCH (06:14)
[2020-07-01] MEDS: MAGNESIUM OXIDE 400 MG TAB PO SCH ×2 (06:14→16:44)
[2020-07-01] MEDS: POTASSIUM CHLORIDE ER 10 MEQ TAB.ER.PRT PO SCH ×2 (06:14→16:44)
[2020-07-01] MEDS: ALPRAZolam 0.5 MG TAB PO PRN ×2 (08:06→20:16)
[2020-07-01] MEDS: LIDOCAINE 5% PATCH TOPICAL SCH (09:32)
[2020-07-01] MEDS: ACETAMINOPHEN TAB 325 MG TAB PO PRN ×3 (09:33→16:46)
[2020-07-01 09:56] LABS: Anisocytosis Slight; Basophils # (A) 0.1 k/uL (0-0.2); Basophils % (A) 1 %; Eosinophils # (A) 0.1 k/uL (0-0.7); Eosinophils % (A) 2 %; HCT 28.4 % (39.0-53.0); HGB 8.4 gm/dL (13.0-17.5); Hypochromasia Marked; Lymphocytes # (A) 1.8 k/uL (1.0-4.8); Lymphocytes % (A) 28 %; MCH 22.6 pg (25.0-35.0); MCHC 29.5 g/dL (31.0-37.0); MCV 76.8 fL (80.0-100.0); Mean Platelet Volume 8.8; Microcytosis Slight; Monocytes # (A) 0.3 k/uL (0-1.0); Monocytes % (A) 5 %; Neutrophils % (A) 62 %; Platelet Count 194 k/uL (150-450); Poikilocytosis Slight; RBC 3.69 m/uL (4.30-5.90); RDW 18.8 % (11.5-15.5); WBC 6.5 k/uL (3.8-10.6)
[2020-07-01 11:01] LABS: Ovalocytes Present; Poikilocytosis (M) Present; Target Cells Present
--- NOTE | 2020-07-01 13:08 | P.HPIM ---
History of Present Illness This is a pleasant 74 years old male with multiple medical problems including coronary artery disease status post previous stent of the LAD, patient has declined bypass surgery in the past, chest pain, severe systolic heart failure with ejection fraction 20-25%, COPD, GERD, hyperlipidemia, hypertension, liver disease, osteoarthritis, chronic kidney disease stage 3, pulmonary hypertension, chronic atrial fibrillation, chronic anemia, COPD, chronic obstructive uropathy secondary to PVH and patient self catheterizes at home, generalized weakness and frequent falls, history of noncompliance and he signed himself AMA 3 days ago w nellie trying to send him to rehab, he refused last minutes & signed himself out leaving AMA. This time he presents with dyspnea and some dry cough, no delirium associated with left-sided chest pain about 10/10 in severity when he came in, currently is 8/10, he could not specify the type of pain but he had it for 3-4 days. Nonradiating pain associated with dyspnea for 3-4 days. No abdominal pain or urinary complaints Vitals looks stable on blood pressure and low normal side. He has moderate anemia with hemoglobin 8.4, rest of CBC is unremarkable, INR is 1.3, d-dimer 1.3 which is slightly elevated. INR is 1.3, magnesium 1.4, troponin 0.04. Review of Systems CONSTITUTIONAL: No fever, no malaise, no fatigue. HEENT: No recent visual problems or hearing problems. Denied any sore throat. CARDIOVASCULAR: No orthopnea, PND, no palpitations, no syncope. PULMONARY: no hemoptysis. GASTROINTESTINAL: No diarrhea, no nausea, no vomiting, no abdominal pain. N ormoactive bowel sounds. NEUROLOGICAL: No headaches, no weakness, no numbness. HEMATOLOGICAL: Denies any bleeding or petechiae. GENITOURINARY: Denies any burning micturition, frequency, or urgency. MUSCULOSKELETAL/RHEUMATOLOGICAL: Denies any joint pain, swelling, or any muscle pain. ENDOCRINE: Denies any polyuria or polydipsia. Past Medical History Past Medical History: Coronary Artery Disease (CAD), Chest Pain / Angina, Heart Failure, COPD, GERD/Reflux, Hyperlipidemia, Hypertension, Liver Disease, Myocardial Infarction (NE), Osteoarthritis (OA), Pneumonia Additional Past Medical History / Comment(s): 06/15/20 pt states he self caths once in awhile at homeCoronary artery disease with previous stenting of the LAD. The patient was investigated and declined for bypass surgery in the past, CHF with an ejection fraction of 20-25%, chronic stage IV kidney disease, BPH, secondary pulmonary hypertension, chronic atrial fibrillation, chronic anemia, COPD, chronic obstructive uropathy secondary to BPH and the patient does self- catheterization at home, osteoarthritis, generalized weakness and episodes of falls Last Myocardial Infarction Date:: 2015 History of Any Multi-Drug Resistant Organisms: None Reported Past Surgical History: Adenoidectomy, Heart Catheterization, Hernia Repair, Tonsillectomy Additional Past Surgical History / Comment(s): COLONOSCOPY,CATARACTS. recent heart cath -has triple vessel disease-no sx as of yet. Past Anesthesia/Blood Transfusion Reactions: No Reported Reaction Date of Last Stent Placement:: 2015 Past Psychological History: No Psychological Hx Reported Additional Psychological History / Comment(s): Pt resides alone. He uses a cane or walker. He owns a electric scooter. Pt gets [place] [employer] by cab. Smoking Status: Current some day smoker Past Alcohol Use History: None Reported Additional Past Alcohol Use History / Comment(s): pt stated he started smoking and drinking ETOH at the age of 66; a pack will last him 3-4 days; has not had ETOH in 1 yr Past Drug Use History: None Reported - Past Family History Mother Family Medical History: Myocardial Infarction (NE) Additional Family Medical History / Comment(s): Mother had a NE in her 80s and . Brother(s) Family Medical History: CVA/TIA Sister(s) Family Medical History: CVA/TIA Father Family Medical History: No Reported History Additional Family Medical History / Comment(s): Father when pt was young from a drowning. Medications and Allergies Home Medications Medication Instructions Recorded Confirmed Type RX: Omeprazole [PriLOSEC] 20 mg PO BID@0530,1730 07/19/16 06/30/20 History RX: Atorvastatin Calcium [Lipitor] 80 mg PO HS@17310/30/19 06/30/20 History RX: Cetirizine HCl [Zyrtec] 10 mg PO DAILY@0530 10/30/19 06/30/20 History RX: Ticagrelor [Brilinta] 90 mg PO BID@0530,1730 10/30/19 06/30/20 History RX: Tamsulosin [Flomax] 0.4 mg PO DAILY@0530 01/27/20 06/30/20 History RX: Magnesium Oxide [Mag-Ox] 400 mg PO BID@0530,1730 03/25/20 06/30/20 History RX: Midodrine [ProAmatine] 2.5 mg PO TID@0530,1200,1730 03/25/20 06/30/20 History RX: ALPRAZolam [Xanax] 0.5 mg PO BID PRN 06/15/20 06/30/20 History RX: Metoprolol Succinate (ER) 50 mg PO DAILY@0530 06/15/20 06/30/20 History [Toprol XL] RX: QUEtiapine [SEROquel] 25 mg PO HS PRN tab 06/27/20 06/30/20 Rx RX: Potassium Chloride ER [K-Dur 10 meq PO BID@0530,17306/30/20 06/30/20 Hi story 10] RX: Torsemide [Demadex] 20 mg PO DAILY@0530 06/30/20 06/30/20 History Allergies Allergy/AdvReac Type Severity Reaction Status Date / Time No Known Allergies Allergy Verified 06/30/20 18:06 Physical Exam Vitals: Vital Signs Temp Pulse Pulse Resp BP BP Pulse Ox 07/01/20 11:32 80 07/01/20 11:19 84 07/01/20 08:15 97.6 F 81 20 90/61 100 07/01/20 07:43 64 07/01/20 07:31 64 07/01/20 04:22 72 07/01/20 04:10 64 07/01/20 04:00 98 18 99/66 99 07/01/20 00:06 86 07/01/20 00:00 95 20 94/55 100 06/30/20 23:55 85 06/30/20 21:22 105 H 18 117/70 99 06/30/20 20:55 97.9 F 98 20 112/81 100 06/30/20 18:27 89 18 111/75 98 06/30/20 18:02 86 06/30/20 17:54 86 06/30/20 16:00 97.6 F 96 18 107/73 98 Intake and Output 06/30/20 07/01/20 07/01/20 22:59 06:59 14:59 Intake Total 41.778 288.535 Output Total 210 Balance -168.222 288.535 Intake: Intake, IV Titration 41.778 48.535 Amount Heparin Sod,Pork in 0.45% 41.778 48.535 NaCl 25,000 unit In 0.45 % NaCl 1 250ml.bag @ 12 UNITS/KG/HR 8.165 mls/hr IV .Q24H [facility] Rx#: [id number] Oral 240 Output: Urine 210 Other: Voiding Method Urinal Urinal # Voids 1 1 Weight 68.039 kg 68.5 kg GENERAL: The patient is alert and oriented x3, in mild acute respiratory d istress. HEENT: Pupils are round and equally reacting to light. EOMI. No scleral icterus. No conjunctival pallor. Normocephalic, atraumatic. No pharyngeal erythema. No thyromegaly. CARDIOVASCULAR: S1 and S2 present. No murmurs, rubs, or gallops. -PULMONARY: Chest is clear to auscultation, no wheezing. Bilateral basal crepitation ABDOMEN: Soft, nontender, nondistended, normoactive bowel sounds. No palpable organomegaly. MUSCULOSKELETAL: No joint swelling or deformity. -EXTREMITIES: No cyanosis, clubbing, bilateral ligated NEUROLOGICAL: Gross neurological examination did not reveal any focal deficits. SKIN: No rashes. No petechiae Results CBC & Chem 7: 07/01/20 09:00 06/30/20 17:18 Labs: Abnormal Lab Results - Last 24 Hours (Table) 06/30/20 06/30/20 06/30/20 Range/Units 17:18 17:18 17:18 RBC 4.12 L (4.30-5.90) m/uL Hgb 9.3 L (13.0-17.5) gm/dL Hct 31.2 L (39.0-53.0) % MCV 75.7 L (80.0-100.0) fL MCH 22.7 L (25.0-35.0) pg MCHC 29.9 L (31.0-37.0) g/dL RDW 19.0 H (11.5-15.5) % PT 12.7 H (9.0-12.0) sec INR 1.3 H (<1.2) APTT (22.0-30.0) sec D-Dimer 1.33 H (<0.60) mg/L FEU Carbon Dioxide 33 H (22-30) mmol/L BUN 31 H (9-20) mg/dL Creatinine 1.32 H (0.66-1.25) mg/dL Glucose 121 H (74-99) mg/dL Magnesium 1.4 L (1.6-2.3) mg/dL Alkaline Phosphatase 163 H (38-126) U/L Troponin I (0.000-0.034) ng/mL 06/30/20 07/01/20 07/01/20 Range/Units 17:18 01:44 09:00 RBC 3.69 L (4.30-5.90) m/uL Hgb 8.4 L (13.0-17.5) gm/dL Hct 28.4 L (39.0-53.0) % MCV 76.8 L (80.0-100.0) fL MCH 22.6 L (25.0-35.0) pg MCHC 29.5 L (31.0-37.0) g/dL RDW 18.8 H (11.5-15.5) % PT (9.0-12.0) sec INR (<1.2) APTT 67.4 H (22.0-30.0) sec D-Dimer (<0.60) mg/L FEU Carbon Dioxide (22-30) mmol/L BUN (9-20) mg/dL Creatinine (0.66-1.25) mg/dL Glucose (74-99) mg/dL Magnesium (1.6-2.3) mg/dL Alkaline Phosphatase (38-126) U/L Troponin I 0.048 H* (0.000-0.034) ng/mL 07/01/20 Range/Units 09:00 RBC (4.30-5.90) m/uL Hgb (13.0-17.5) gm/dL Hct (39.0-53.0) % MCV (80.0-100.0) fL MCH (25.0-35.0) pg MCHC (31.0-37.0) g/dL RDW (11.5-15.5) % PT (9.0-12.0) sec INR (<1.2) APTT 41.7 H (22.0-30.0) sec D-Dimer (<0.60) mg/L FEU Carbon Dioxide (22-30) mmol/L BUN (9-20) mg/dL Creatinine (0.66-1.25) mg/dL Glucose (74-99) mg/dL Magnesium (1.6-2.3) mg/dL Alkaline Phosphatase (38-126) U/L Troponin I (0.000-0.034) ng/mL Thrombosis Risk Factor Assmnt - Choose All That Apply Each Risk Factor Represents 3 Points: Age 75 years or older Thrombosis Risk Factor Assessment Total Risk Factor Score: 3 Thrombosis Risk Factor Assessment Level: Moderate Risk Assessment and Plan Assessment: -Acute on chronic systolic CHF with ejection fraction 20-25% associated with bilateral pleural effusions -possible non-STEMI -Patient has multiple hospitalization, this is the fifth hospitalization of this year -Acute renal failure: Secondary to cardiorenal syndrome continue with Demadex -Generalized weakness can be related to acute renal failure, patient although does have chronic weakness -Urinary retention , self catheterize WITH straight cath 3-4 times a day , which could be done by the patient himself upon his request. -Chronic kidney disease stage III: Probably secondary to hypertensive nephrosclerosis -COPD without any significant exacerbation -Severe pulmonary hypertension -hypertension -hyperlipidemia -Atrial fibrillation proximal presently rate controlled , not on anti- coagulation at this -Anemia of chronic kidney disease -Coronary artery disease, status post previous stenting Plan: This is a pleasant 74 years old male who presents with chest pain or dyspnea from acute systolic CHF and possible non-STEMI. Cardiology team were consulted. Continue with heparin drip. Continue with Lasix Labs and medication were reviewed.. Continue same treatment. Continue with symptomatic treatment. Resume home medication. Monitor lytes and vitals. DVT and GI prophylaxis. Further recommendations depends on the clinical course of the patient DVT prophylaxis:s heparin GI Prophylaxis: Pepcid PT/OT: Pending CODE STATUS: No cold after discussed with the patient and girlfriend at bedside, he wants to be DO NOT RESUSCITATE DO NOT INTUBATE Prognosis is guarded Also I have limited discussion with the patient and girlfriend at bedside about the option for hospice service he has severe heart failure and non-STEMI, her current hospitalization and multiple other medical problems with complications as above, he said his doctor will be here later on today and he will discuss it with her, I discussed with him hospice care versus palliative consult as an outpatient. Patient will decide later
--- NOTE | 2020-07-01 14:52 | P.CRDCN ---
"History of Present Illness Consult date: 07/01/20 Chief complaint: Shortness of breath History of present illness: This is a 74-year-old gentleman who follows with Dr. Diop in the office. He has a history of hypertension, hyperlipidemia, prior liver disease, history of EtOH abuse, COPD, GERD, history of coronary artery disease with prior successful stenting of the LAD, chronic kidney disease, presented to the hospital on this occasion with symptoms of shortness of breath. Patient also states that he's been having an intermittent cough, and been feeling extremely weak. Patient did have a recent hospitalization with respiratory failure, he was in the intensive care unit. His EKG on presentation here showed a normal sinus rhythm with occasional PVC and nonspecific ST-T wave changes. Chest x-ray showed bilateral pleural effusions right greater than left with no evidence of congestive cardiac failure. His echo performed in March showed an ejection fraction of 20-25% with mild to moderate mitral regurgitation. Blood pressure 90/60, heart rate in the 80s, respirations 21% on 2 L of oxygen. White blood cell count 9.1, hemoglobin 9.3, platelet count 228. D-dimer 1.3 sodium 141, potassium 3.7, BUN 31, creatinine 1.3. Magnesium 1.4, troponin 0.048 with a BNP of 14,700. Patient's troponin is actually down from his most recent admission to the hospital. His BNP level is also down from 45,000 on this recent admission. At the time of my examination this morning patient complained of feeling extremely weak, he still was feeling short of breath. Past Medical History Past Medical History: Coronary Artery Disease (CAD), Chest Pain / Angina, Heart Failure, COPD, GERD/Reflux, Hyperlipidemia, Hypertension, Liver Disease, Aron cardial Infarction (CA), Osteoarthritis (OA), Pneumonia Additional Past Medical History / Comment(s): 06/15/20 pt states he self caths once in awhile at homeCoronary artery disease with previous stenting of the LAD. The patient was investigated and declined for bypass surgery in the past, CHF with an ejection fraction of 20-25%, chronic stage IV kidney disease, BPH, secondary pulmonary hypertension, chronic atrial fibrillation, chronic anemia, COPD, chronic obstructive uropathy secondary to BPH and the patient does self- catheterization at home, osteoarthritis, generalized weakness and episodes of falls Last Myocardial Infarction Date:: 2016 History of Any Multi-Drug Resistant Organisms: None Reported Past Surgical History: Adenoidectomy, Heart Catheterization, Hernia Repair, Tonsillectomy Additional Past Surgical History / Comment(s): COLONOSCOPY,CATARACTS. recent heart cath -has triple vessel disease-no sx as of yet. Past Anesthesia/Blood Transfusion Reactions: No Reported Reaction Date of Last Stent Placement:: 2015 Past Psychological History: No Psychological Hx Reported Additional Psychological History / Comment(s): Pt resides alone. He uses a cane or walker. He owns a electric scooter. Pt gets to [id number] by cab. Smoking Status: Current some day smoker Past Alcohol Use History: None Reported Additional Past Alcohol Use History / Comment(s): pt stated he started smoking and drinking ETOH at the age of 66; a pack will last him 3-4 days; has not had ETOH in 1 yr Past Drug Use History: None Reported - Past Family History Mother Family Medical History: Myocardial Infarction (CA) Additional Family Medical History / Comment(s): Mother had a CA in her 80s and . Brother(s) Family Medical History: CVA/TIA Sister(s) Family Medical History: CVA/TIA Father Family Medical History: No Reported History Additional Family Medical History / Comment(s): Father when pt was young from a drowning. Medications and Allergies Home Medications Medication Instructions Recorded Confirmed Type Omeprazole [PriLOSEC] 20 mg PO BID@0530,1730 07/19/16 06/30/20 History Atorvastatin Calcium [Lipitor] 80 mg PO HS@17310/30/19 06/30/20 History Cetirizine HCl [Zyrtec] 10 mg PO DAILY@0530 10/30/19 06/30/20 History Ticagrelor [Brilinta] 90 mg PO BID@0530,1730 10/30/19 06/30/20 History Tamsulosin [Flomax] 0.4 mg PO DAILY@0530 01/27/20 06/30/20 History Magnesium Oxide [Mag-Ox] 400 mg PO BID@0530,1730 03/25/20 06/30/20 History Midodrine [ProAmatine] 2.5 mg PO TID@0530,1200,1730 03/25/20 06/30/20 History ALPRAZolam [Xanax] 0.5 mg PO BID PRN 06/15/20 06/30/20 History Metoprolol Succinate (ER) [Toprol 50 mg PO DAILY@0530 06/15/20 06/30/20 History XL] QUEtiapine [SEROquel] 25 mg PO HS PRN tab 06/27/20 06/30/20 Rx Potassium Chloride ER [K-Dur 10] 10 meq PO BID@0530,1730 06/30/20 06/30/20 History Torsemide [Demadex] 20 mg PO DAILY@0530 06/30/20 06/30/20 History Allergies Allergy/AdvReac Type Severity Reaction Status Date / Time No Known Allergies Allergy Verified 06/30/20 18:06 Physical Exam Vitals: Vital Signs Temp Pulse Pulse Resp BP BP Pulse Ox 07/01/20 11:32 80 07/01/20 11:19 84 07/01/20 08:15 97.6 F 81 20 90/61 100 07/01/20 07:43 64 07/01/20 07:31 64 07/01/20 04:22 72 07/01/20 04:10 64 07/01/20 04:00 98 18 99/66 99 07/01/20 00:06 86 07/01/20 00:00 95 20 94/55 100 06/30/20 23:55 85 06/30/20 21:22 105 H 18 117/70 99 06/30/20 20:55 97.9 F 98 20 112/81 100 06/30/20 18:27 89 18 111/75 98 06/30/20 18:02 86 06/30/20 17:54 86 06/30/20 16:00 97.6 F 96 18 107/73 98 Intake and Output 06/30/20 07/01/20 07/01/20 22:59 06:59 14:59 Intake Total 41.778 648.535 Output Total 210 Balance -168.222 648.535 Intake: IV 120 .9 @ 10 120 Intake, IV Titration 41.778 48.535 Amount Heparin Sod,Pork in 0.45% 41.778 48.535 NaCl 25,000 unit In 0.45 % NaCl 1 250ml.bag @ 12 UNITS/KG/HR 8.165 mls/hr IV .Q24H [facility] Rx#: [id number] Oral 480 Output: Urine 210 Other: Voiding Method Urinal Self-Catheterization # Voids 1 1 # Bowel Movements 1 Weight 68.039 kg 68.5 kg GENERAL EXAM: Alert, very pleasant, 74-year-old white male HEENT: PERRLA, EOMI, no icterus. CHEST: No chest wall deformity. Symmetrical expansion. LUNGS: Diminished breath sounds and crackles at the bases, fine expiratory wheezes CVS: Regular rate and rhythm, normal S1 and S2, no gallops, no murmurs, no rubs ABDOMEN: Soft, nontender. No hepatosplenomegaly, normal bowel sounds, no guarding or rigidity. EXTREMITIES: No clubbing, no edema, no cyanosis, 2+ pulses and upper and lower extremities. MUSCULOSKELETAL: Muscle strength and tone normal. SPINE: No scoliosis or deformity SKIN: No rashes CENTRAL NERVOUS SYSTEM: alert and awake and communicating. No focal deficit at this time PSYCHIATRIC: Alert and oriented -3. Appropriate affect. Intact judgment and insight. Results 07/01/20 09:00 06/30/20 17:18 Cardiac Enzymes 06/30/20 06/30/20 Range/Units 17:18 17:18 AST 39 (17-59) U/L Troponin I 0.048 H* (0.000-0.034) ng/mL Coagulation 06/30/20 07/01/20 07/01/20 Range/Units 17:18 01:44 09:00 PT 12.7 H (9.0-12.0) sec APTT 23.8 67.4 H 41.7 H (22.0-30.0) sec CBC 06/30/20 07/01/20 Range/Units 17:18 09:00 WBC 9.1 6.5 (3.8-10.6) k/uL RBC 4.12 L 3.69 L (4.30-5.90) m/uL Hgb 9.3 L 8.4 L (13.0-17.5) gm/dL Hct 31.2 L 28.4 L (39.0-53.0) % Plt Count 228 194 (150-450) k/uL Comprehensive Metabolic Panel 06/30/20 Range/Units 17:18 Sodium 141 (137-145) mmol/L Potassium 3.7 (3.5-5.1) mmol/L Chloride 100 (98-107) mmol/L Carbon Dioxide 33 H (22-30) mmol/L BUN 31 H (9-20) mg/dL Creatinine 1.32 H (0.66-1.25) mg/dL Glucose 121 H (74-99) mg/dL Calcium 9.2 (8.4-10.2) mg/dL AST 39 (17-59) U/L ALT 24 (4-49) U/L Alkaline Phosphatase 163 H (38-126) U/L Total Protein 7.4 (6.3-8.2) g/dL Albumin 4.0 (3.5-5.0) g/dL Current Medications Generic Name Dose Route Start Last Admin Trade Name Freq PRN Reason Stop Dose Admin Acetaminophen 650 mg 07/01/20 08:55 07/01/20 12:36 Acetaminophen Tab 325 Mg Tab PO 650 mg Q4HR PRN Administration Fever and/ or Pain Albuterol/Ipratropium 3 ml 07/01/20 00:00 07/01/20 11:18 Ipratropium-Albuterol 3 Ml Neb INHALATION 3 ml RT-Q4H TI Administration Alprazolam 0.5 mg 06/30/20 20:16 07/01/20 08:06 Alprazolam 0.5 Mg Tab PO 0.5 mg BID PRN Administration Anxiety Atorvastatin Calcium 80 mg 07/01/20 17:30 Atorvastatin 80 Mg Tab PO HS@1730 TI Heparin Sodium (Porcine) 0 unit 06/30/20 20:16 Heparin Sodium,Porcine 5,000 Unit/Ml 1 Ml Vial IV PER PROTOCOL PRN Low PTT Protocol Heparin Sodium/Sodium Chloride 250 mls @ 8.165 mls/hr 06/30/20 20:30 07/01/20 09:31 25,000 unit/ Sodium Chloride IV 12 units/kg/hr .Q24H TI 8.165 mls/hr Titration Protocol 12 UNITS/KG/HR Lidocaine 1 patch 07/01/20 09:00 07/01/20 09:32 Lidocaine 5% Patch TOPICAL 1 patch DAILY TI Administration Loratadine 10 mg 07/01/20 05:30 07/01/20 06:14 Loratadine 10 Mg Tab PO 10 mg DAILY@0530 TI Administration Magnesium Oxide 400 mg 07/01/20 05:30 07/01/20 06:14 Magnesium Oxide 400 Mg Tab PO 400 mg BID@0530,1730 TI Administration Metoprolol Succinate 50 mg 07/01/20 05:30 07/01/20 06:14 Metoprolol Succinate (Er) 50 Mg Tab.Er.24h PO 50 mg DAILY@0530 TI Administration Midodrine 2.5 mg 07/01/20 05:30 07/01/20 11:42 Midodrine 5 Mg Tab PO 2.5 mg TID@0530,1200,1730 TI Administration Pantoprazole Sodium 40 mg 07/01/20 05:30 07/01/20 06:14 Pantoprazole 40 Mg Tablet PO 40 mg BID@0530,1730 TI Administration Potassium Chloride 10 meq 07/01/20 05:30 07/01/20 06:14 Potassium Chloride Er 10 Meq Tab.Er.Prt PO 10 meq BID@0530,173 TI Administration Quetiapine Fumarate 25 mg 06/30/20 20:16 07/01/20 01:49 Quetiapine 25 Mg Tab PO 25 mg HS PRN Administration Agitation Tamsulosin HCl 0.4 mg 07/01/20 05:30 07/01/20 06:14 Tamsulosin 0.4 Mg Cap.Er.24h PO 0.4 mg DAILY@0530 TI Administration Intake and Output 06/30/20 07/01/20 07/01/20 22:59 06:59 14:59 Intake Total 41.778 648.535 Output Total 210 Balance -168.222 648.535 Intake: IV 120 .9 @ 10 120 Intake, IV Titration 41.778 48.535 Amount Heparin Sod,Pork in 0.45% 41.778 48.535 NaCl 25,000 unit In 0.45 % NaCl 1 250ml.bag @ 12 UNITS/KG/HR 8.165 mls/hr IV .Q24H [facility] Rx#: [id number] Oral 480 Output: Urine 210 Other: Voiding Method Urinal Self-Catheterization # Voids 1 1 # Bowel Movements 1 Weight 68.039 kg 68.5 kg 07/01/20 09:00 06/30/20 17:18 EKG Interpretations (text) EKG shows a normal sinus rhythm with occasional PVCs, nonspecific ST-T wave changes Assessment and Plan Plan: Assessment and plan #1 symptoms of shortness of breath, possible mild congestive heart failure, systolic, acute on chronic with evidence of bilateral pleural effusions. BNP level is actually down significantly from recent admission. #2 troponin abnormality, improved from this recent admission, not suggestive of acute coronary syndrome. #3 acute on chronic renal failure #4 paroxysmal atrial fibrillation #5 anemia #6 dementia #7 hypertension #8 coronary artery disease with prior LAD stenting #9 hyperlipidemia #10 prior liver disease #11 history of EtOH abuse #12 COPD #13 GERD Plan Patient had an echocardiogram with Doppler study performed in March, we will not repeat an echo on this admission. His overall prognosis is guarded. We'll discontinue his IV heparin, continue Lipitor, metoprolol, monitor creatinine, consider the addition of an DARION inhibitor. As well as Aldactone. Patient is currently not on an aspirin because of anemia. Further recommendations to follow. DNP note has been reviewed, I agree with a documented findings and plan of care. Patient was seen and examined."
[2020-07-01] MEDS: ATORVASTATIN 80 MG TAB PO SCH (16:44)
[2020-07-01 22:11] LABS: Magnesium 1.9 mg/dL (1.6-2.3); Potassium 3.6 mmol/L (3.5-5.1)
[2020-07-01] MEDS ORDERED: IPRATROPIUM-ALBUTEROL 3 ML NEB INHALATION PRN (23:37)
[2020-07-02] MEDS ORDERED: TORSEMIDE 20 MG TAB PO ONE
[2020-07-02] MEDS: ACETAMINOPHEN TAB 325 MG TAB PO PRN ×4 (00:02→21:32)
[2020-07-02] MEDS: POTASSIUM CHLORIDE ER 10 MEQ TAB.ER.PRT PO SCH ×2 (06:09→16:34)
[2020-07-02] MEDS: MIDODRINE 5 MG TAB PO SCH ×3 (06:09→16:33)
[2020-07-02] MEDS: TAMSULOSIN 0.4 MG CAP.ER.24H PO SCH (06:09)
[2020-07-02] MEDS: PANTOPRAZOLE 40 MG TABLET PO SCH ×2 (06:10→16:34)
[2020-07-02] MEDS: LORATADINE 10 MG TAB PO SCH (06:10)
[2020-07-02] MEDS: METOPROLOL SUCCINATE (ER) 50 MG TAB.ER.24H PO SCH (06:10)
[2020-07-02] MEDS: MAGNESIUM OXIDE 400 MG TAB PO SCH ×2 (06:10→16:34)
[2020-07-02] MEDS: ALPRAZolam 0.5 MG TAB PO PRN ×2 (06:12→13:53)
[2020-07-02] MEDS: TORSEMIDE 20 MG TAB PO SCH (07:59)
[2020-07-02] MEDS: LIDOCAINE 5% PATCH TOPICAL SCH (07:59)
[2020-07-02] MEDS: IPRATROPIUM-ALBUTEROL 3 ML NEB INHALATION SCH ×3 (08:17→21:02)
--- NOTE | 2020-07-02 14:08 | P.PN ---
Subjective Progress Note Date: 07/02/20 This is a 74-year-old gentleman who follows with Dr. Diop in the office. He has a history of hypertension, hyperlipidemia, prior liver disease, history of EtOH abuse, COPD, GERD, history of coronary artery disease with prior successful stenting of the LAD, chronic kidney disease, presented to the hospital on this occasion with symptoms of shortness of breath. Patient also states that he's been having an intermittent cough, and been feeling extremely weak. Patient did have a recent hospitalization with respiratory failure, he was in the intensive care unit. His EKG on presentation here showed a normal sinus rhythm with occasional PVC and nonspecific ST-T wave changes. Chest x-ray showed bilateral pleural effusions right greater than left with no evidence of congestive cardiac failure. His echo performed in March showed an ejection fraction of 20-25% with mild to moderate mitral regurgitation. Blood pressure 90/60, heart rate in the 80s, respirations 21% on 2 L of oxygen. White blood cell count 9.1, hemoglobin 9.3, platelet count 228. D-dimer 1.3 sodium 141, potassium 3.7, BUN 31, creatinine 1.3. Magnesium 1.4, troponin 0.048 with a BNP of 14,700. Patient's troponin is actually down from his most recent admission to the hospital. His BNP level is also down from 45,000 on this recent admission. At the time of my examination this morning patient complained of feeling extremely weak, he still was feeling short of breath. 07/02/2020 Patient was seen and examined this morning, still complains of feeling short of breath but does state that he feels somewhat better today. He is complaining of inability to swallow. Blood pressure 110/60 with a heart rate in the 70s, 100% on room air. White blood cell count 5.7, hemoglobin 10.6, platelet count 149. Sodium 133, potassium 4.6, BUN 17, creatinine 0.9. Objective - Vital Signs Vital signs: Vital Signs Temp 97.6 F 07/02/20 11:08 Pulse 80 07/02/20 12:39 Resp 18 07/02/20 11:08 BP 75/47 07/02/20 11:08 Pulse Ox 95 07/02/20 11:08 Intake & Output 07/01/20 07/02/20 07/02/20 18:59 06:59 18:59 Intake Total 948.276 Output Total 430 Balance 948.276 -430 Weight 68.3 kg Intake: IV 120 .9 @ 10 120 Intake, IV Titration 108.276 Amount Heparin Sod,Pork in 0.45% 108.276 NaCl 25,000 unit In 0.45 % NaCl 1 250ml.bag @ 12 UNITS/KG/HR 8.165 mls/hr IV .Q24H TI Rx#: [id number] Oral 720 Output: Urine 430 Other: Voiding Method Self-Catheterization Self-Catheterization Self-Catheterization # Voids 1 1 # Bowel Movements 1 - Exam PHYSICAL EXAMINATION: GENERAL: 69-year-old female in no acute distress at the time of my examination HEENT: Head is atraumatic, normocephalic. Pupils equal, round. Sclera anicteric. Conjunctiva are clear. Mucous membranes of the mouth are moist. Neck is supple. There is no elevated jugular venous pressure. No carotid bruit is heard. HEART EXAMINATION: S1 and S2 with systolic murmur is heard CHEST EXAMINATION: Lungs are clear to auscultation and precussion. No chest wall tenderness is noted on palpation or with deep breathing. ABDOMEN: Soft, obese, nontender. Bowel sounds are heard. No organomegaly noted. EXTREMITIES: 2+ peripheral pulses with no evidence of peripheral edema and no calf tenderness noted. NEUROLOGIC patient is awake, alert and oriented 3 - Labs CBC & Chem 7: 07/01/20 09:00 07/01/20 15:08 Labs: Abnormal Lab Results - Last 24 Hours (Table) 07/01/20 07/01/20 Range/Units 15:08 15:08 APTT 58.8 H (22.0-30.0) sec Carbon Dioxide 33 H (22-30) mmol/L BUN 32 H (9-20) mg/dL Creatinine 1.47 H (0.66-1.25) mg/dL Glucose 134 H (74-99) mg/dL Assessment and Plan Plan: Assessment and plan #1 symptoms of shortness of breath, possible mild congestive heart failure, systolic, acute on chronic with evidence of bilateral pleural effusions. BNP level is actually down significantly from recent admission. #2 troponin abnormality, improved from this recent admission, not suggestive of acute coronary syndrome. #3 acute on chronic renal failure #4 paroxysmal atrial fibrillation #5 anemia #6 dementia #7 hypertension #8 coronary artery disease with prior LAD stenting #9 hyperlipidemia #10 prior liver disease #11 history of EtOH abuse #12 COPD #13 GERD Plan From cardiology's perspective, we'll continue the patient on his current medications. DNP note has been reviewed, I agree with a documented findings and plan of care. Patient was seen and examined.
--- NOTE | 2020-07-02 15:54 | FL ---
COMPARISON: NONE DATE OF EXAM: 07/02/2020 HISTORY: Dysphasia A number of thin and thick substances were ingested under the care of the department of speech pathol ogy. There is deep penetration on ingestion of thin barium which was improved with chin tuck maneuve r. Transient penetration with pudding. Vallecular pooling and residuals noted. Approximately 1 minute 8 seconds of fluoroscopy provided. No images submitted. IMPRESSION: 1. See above.
[2020-07-02] MEDS: ATORVASTATIN 80 MG TAB PO SCH (16:34)
[2020-07-02] MEDS: TICAGRELOR 90 MG TAB PO SCH (17:38)
[2020-07-02] MEDS ORDERED: Potassium Replacement Protocol 1 EACH MISC MISCELLANE PRN (18:07)
[2020-07-02] MEDS ORDERED: POTASSIUM CHLORIDE ER 20 MEQ TAB.ER PO SCH (19:00)
--- NOTE | 2020-07-02 21:16 | P.PN ---
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 This time he presents with dyspnea and some dry cough, no delirium associated with left-sided chest pain about 10/10 in severity when he came in, currently is 8/10, he could not specify the type of pain but he had it for 3-4 days. Nonradiating pain associated with dyspnea for 3-4 days. No abdominal pain or urinary complaints Vitals looks stable on blood pressure and low normal side. He has moderate anemia with hemoglobin 8.4, rest of CBC is unremarkable, INR is 1.3, d-dimer 1.3 which is slightly elevated. INR is 1.3, magnesium 1.4, troponin 0.04. 07/02/2020 Patient looks comfortable in bed with no significant dyspnea or chest pain, no other complaints patient was considered for discharge today, discussed with cardiology team who cleared him for discharge from their perspective, there was suspicion of swallowing problem, modified barium swallow was done. Patient does swallow evaluation Patient was found medically clear for discharge pending placement. Patient continued and fell into and the [facility] versus palliative care was discussed with the patient he wants to talk to palliative team as an outpatient. Patient will benefit from ECF for inpatient rehab Case was discussed with the staff, and speech pathology team Review of Systems CONSTITUTIONAL: No fever, no malaise, no fatigue. HEENT: No recent visual problems or hearing problems. Denied any sore throat. CARDIOVASCULAR: No orthopnea, PND, no palpitations, no syncope. PULMONARY: no hemoptysis. GASTROINTESTINAL: No diarrhea, no nausea, no vomiting, no abdominal pain. Normoactive bowel sounds. NEUROLOGICAL: No headaches, no weakness, no numbness. Active Medications Generic Name Dose Route Start Last Admin Trade Name Freq PRN Reason Stop Dose Admin Acetaminophen 650 mg 07/01/20 08:55 07/02/20 13:53 Acetaminophen Tab 325 Mg Tab PO 650 mg Q4HR PRN Administration Fever and/ or Pain Albuterol/Ipratropium 3 ml 07/02/20 08:00 07/02/20 21:02 Ipratropium-Albuterol 3 Ml Neb INHALATION 3 ml RT-TID TI Administration Albuterol/Ipratropium 3 ml 07/01/20 23:37 Ipratropium-Albuterol 3 Ml Neb INHALATION RT-Q2H PRN Shortness Of Breath Or Wheezing Alprazolam 0.5 mg 06/30/20 20:16 07/02/20 13:53 Alprazolam 0.5 Mg Tab PO 0.5 mg BID PRN Administration Anxiety Atorvastatin Calcium 80 mg 07/01/20 17:30 07/02/20 16:34 Atorvastatin 80 Mg Tab PO 80 mg HS@1730 TI Administration Lidocaine 1 patch 07/01/20 09:00 07/02/20 07:59 Lidocaine 5% Patch TOPICAL 1 patch DAILY TI Administration Loratadine 10 mg 07/01/20 05:30 07/02/20 06:10 Loratadine 10 Mg Tab PO 10 mg DAILY@0530 TI Administration Magnesium Oxide 400 mg 07/01/20 05:30 07/02/20 16:34 Magnesium Oxide 400 Mg Tab PO 400 mg BID@0530,1730 TI Administration Metoprolol Succinate 50 mg 07/01/20 05:30 07/02/20 06:10 Metoprolol Succinate (Er) 50 Mg Tab.Er.24h PO 50 mg DAILY@0530 TI Administration Midodrine 2.5 mg 07/01/20 05:30 07/02/20 16:33 Midodrine 5 Mg Tab PO 2.5 mg TID@0530,1200,1730 TI Administration Miscellaneous Information 1 each 07/02/20 18:07 Potassium Replacement Protocol 1 Each Misc MISCELLANE DAILY PRN Per Protocol Protocol Pantoprazole Sodium 40 mg 07/01/20 05:30 07/02/20 16:34 Pantoprazole 40 Mg Tablet PO 40 mg BID@0530,1730 TI Administration Potassium Chloride 10 meq 07/01/20 05:30 07/02/20 16:34 Potassium Chloride Er 10 Meq Tab.Er.Prt PO 10 meq BID@0530,1730 TI Administration Quetiapine Fumarate 25 mg 06/30/20 20:16 07/01/20 01:49 Quetiapine 25 Mg Tab PO 25 mg HS PRN Administration Agitation Tamsulosin HCl 0.4 mg 07/01/20 05:30 07/02/20 06:09 Tamsulosin 0.4 Mg Cap.Er.24h PO 0.4 mg DAILY@0530 TI Administration Ticagrelor 90 mg 07/02/20 17:30 07/02/20 17:38 Ticagrelor 90 Mg Tab PO 90 mg BID@0530,1730 TI Administration Torsemide 20 mg 07/02/20 09:00 07/02/20 07:59 Torsemide 20 Mg Tab PO 20 mg DAILY TI Administration Objective - Vital Signs Vital signs: Vital Signs Temp 97.7 F 07/02/20 16:00 Pulse 76 07/02/20 21:04 Resp 18 07/02/20 16:00 BP 94/64 07/02/20 16:00 Pulse Ox 99 07/02/20 16:00 Intake & Output 07/02/20 07/02/20 07/03/20 06:59 18:59 06:59 Intake Total 365 Output Total 430 Balance -430 365 Weight 68.3 kg Intake: Oral 365 Output: Urine 430 Other: Voiding Method Self-Catheterization Self-Catheterization # Voids 1 1 # Bowel Movements 1 - Exam GENERAL: The patient is alert and oriented x3, not in any acute distress. Well developed, well nourished. HEENT: Pupils are round and equally reacting to light. EOMI. No scleral icterus. No conjunctival pallor. Normocephalic, atraumatic. No pharyngeal erythema. No thyromegaly. CARDIOVASCULAR: S1 and S2 present. No murmurs, rubs, or gallops. -PULMONARY: Chest is clear to auscultation, no wheezing. Mild basal ABDOMEN: Soft, nontender, nondistended, normoactive bowel sounds. No palpable organomegaly. MUSCULOSKELETAL: No joint swelling or deformity. -EXTREMITIES: No cyanosis, clubbing,. Bilateral leg edema, mild NEUROLOGICAL: Gross neurological examination did not reveal any focal deficits. SKIN: No rashes. no petechiae. - Labs CBC & Chem 7: 07/01/20 09:00 07/01/20 15:08 Labs: Abnormal Lab Results - Last 24 Hours (Table) 07/01/20 Range/Units 15:08 Carbon Dioxide 33 H (22-30) mmol/L BUN 32 H (9-20) mg/dL Creatinine 1.47 H (0.66-1.25) mg/dL Glucose 134 H (74-99) mg/dL Assessment and Plan Assessment: -Acute on chronic systolic CHF with ejection fraction 20-25% associated with bilateral pleural effusions -possible non-STEMI -Patient has multiple hospitalization, this is the fifth hospitalization of this year -Acute renal failure: Secondary to cardiorenal syndrome continue with Demadex -Generalized weakness can be related to acute renal failure, patient although does have chronic weakness -Urinary retention , self catheterize WITH straight cath 3-4 times a day , which could be done by the patient himself upon his request. 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 Less likely. Card iology team were consulted. Continue with the [facility] and [facility] and medication were reviewed.. Continue same treatment. Continue with symptomatic treatment. Resume home medication. Monitor lytes and vitals. DVT and GI prophylaxis. Further recommendations depends on the clinical course of the patient DVT prophylaxis:s heparin GI Prophylaxis: Pepcid PT/OT: Pending CODE STATUS: No code after discussed with the patient and girlfriend at bedside, he wants to be DO NOT RESUSCITATE DO NOT INTUBATE Prognosis is guarded Palliative consult as an outpatient and patient agrees Patient is medically stable for discharge pending placement
[2020-07-03] MEDS: ACETAMINOPHEN TAB 325 MG TAB PO PRN ×2 (04:19→11:19)
[2020-07-03] MEDS: ALPRAZolam 0.5 MG TAB PO PRN ×2 (04:19→14:33)
[2020-07-03] MEDS: MIDODRINE 5 MG TAB PO SCH ×2 (06:17→11:19)
[2020-07-03] MEDS: METOPROLOL SUCCINATE (ER) 50 MG TAB.ER.24H PO SCH (06:17)
[2020-07-03] MEDS: TAMSULOSIN 0.4 MG CAP.ER.24H PO SCH (06:17)
[2020-07-03] MEDS: LORATADINE 10 MG TAB PO SCH (06:17)
[2020-07-03] MEDS: POTASSIUM CHLORIDE ER 10 MEQ TAB.ER.PRT PO SCH (06:17)
[2020-07-03] MEDS: TICAGRELOR 90 MG TAB PO SCH (06:17)
[2020-07-03] MEDS: PANTOPRAZOLE 40 MG TABLET PO SCH (06:18)
[2020-07-03] MEDS: MAGNESIUM OXIDE 400 MG TAB PO SCH (06:18)
[2020-07-03] MEDS: IPRATROPIUM-ALBUTEROL 3 ML NEB INHALATION SCH ×2 (07:49→14:22)
[2020-07-03] MEDS ORDERED: MORPHINE SULFATE 2 MG/ML SYRINGE IVP STA (08:29)
[2020-07-03] MEDS: TORSEMIDE 20 MG TAB PO SCH (08:50)
[2020-07-03] MEDS: LIDOCAINE 5% PATCH TOPICAL SCH (08:51)
[2020-07-03 09:00] VITALS: TEMP 98.1
[2020-07-03] MEDS ORDERED: LIDOCAINE 5% PATCH TOPICAL SCH (09:00)
[2020-07-03 11:22] VITALS: BP 98/62; RESP 16
--- NOTE | 2020-07-03 13:11 | P.DS ---
Providers Date of admission: 06/30/20 20:13 Attending physician: Chelo Huerta Consults: 06/30/20 20:12 Consult Physician Routine Consulting Provider: Leonel Fairchild Consult Reason/Comments: Elevated troponin Do you want consulting provider notified?: Yes Primary care physician: Dannie Urbina [facility] Course: Diagnoses: -Acute on chronic systolic CHF with severely low ejection fraction 20-25% as sociated with bilateral pleural effusions , patient is getting close to end- stage heart failure -possible non-STEMI -Patient has multiple hospitalization, this is the fifth hospitalization of this year -Acute renal failure: Secondary to cardiorenal syndrome continue with Demadex -Generalized weakness can be related to acute renal failure, patient although does have chronic weakness -Urinary retention , self catheterize WITH straight cath 3-4 times a day , which could be done by the patient himself upon his request. -Chronic kidney disease stage III: Probably secondary to hypertensive nephroscl erosis -COPD without any significant exacerbation -Low back pain, musculoskeletal -Non-adherence to treatment -Severe pulmonary hypertension -hypertension -hyperlipidemia -Atrial fibrillation proximal presently rate controlled , not on anti- coagulation for patient is high-risk of bleeding -Anemia of chronic kidney disease -Coronary artery disease, status post previous stenting Hospital course: This is a pleasant 74 years old male with multiple medical problems including coronary artery disease status post previous stent of the LAD, patient has declined bypass surgery in the past, chest pain, severe systolic heart failure with ejection fraction 20-25%, COPD, GERD, hyperlipidemia, hypertension, liver disease, osteoarthritis, chronic kidney disease stage 3, pulmonary hypertension, chronic atrial fibrillation, chronic anemia, COPD, chronic obstructive uropathy secondary to BPH and patient self catheterizes at home, generalized weakness and frequent falls, history of noncompliance and he signed himself AMA 3 days ago when we were trying to send him to rehab, he refused last minutes & signed himself out leaving AMA. This time he presents with dyspnea and some dry cough, associated with left- sided chest pain about 10/10 in severity when he came in, patient has been evaluated by cryolite recovery operator recommended to continue with medical management , patient dyspnea improved and he has less chest pain. Patient was treated with diuretic in his breathing improved also received antiplatelet brillinta and he showed interval improvement, no more chest pain. Breathing is improved. Cardiology evaluated the case and were following him closely. I discussed the case with cardiology team who cleared him for discharge Given patient's advanced disease and his poor prognosis, palliative care consult with possible hospice discussed with the patient. He agrees for palliative consult as an outpatient Problems and management plan were discussed with the patient and he verbalized understanding and acceptance Patient was found stable and can be discharged home however he needs follow-up as an outpatient. Patient was instructed to follow up with PCP Dr. Glover within one week and patient agrees Patient also was instructed to follow up with his cryolite recovery operator in 2 weeks and cable assembler and swager Dr. Hidalgo in 2 weeks as Gen: patient is a AAOx3, no distress CVS: S1-S2, RRR, no murmur -Lungs: B/L CTA, no wheezing. Patient is mildly tachypneic with bilateral basal crepitation Abdomen: soft, no distention, no tenderness, positive bowel sounds -Extremity: Bilateral mild leg edema. With no induration Time spent more than 35 minutes Patient Condition at Discharge: Fair Plan - Discharge Summary Discharge Rx Participant: Yes New Discharge Prescriptions: New Ipratropium-Albuterol Nebulize [Duoneb 0.5 mg-3 mg/3 ml Soln] 3 ml INHALATION RT-TID ml Lidocaine 5% Patch [Lidoderm 5% Patch] 1 patch TOPICAL DAILY patch Acetaminophen Tab [Tylenol] 325 mg PO Q4HR PRN tab PRN Reason: Fever And/ Or Pain ALPRAZolam [Xanax] 0.5 mg PO BID PRN 2 Days #4 tab PRN Reason: Anxiety Continue Omeprazole [PriLOSEC] 20 mg PO BID@0530,1730 Cetirizine HCl [Zyrtec] 10 mg PO DAILY@0530 Ticagrelor [Brilinta] 90 mg PO BID@0530,1730 Atorvastatin Calcium [Lipitor] 80 mg PO HS@1730 Tamsulosin [Flomax] 0.4 mg PO DAILY@0530 Midodrine [ProAmatine] 2.5 mg PO TID@0530,1200,1730 Magnesium Oxide [Mag-Ox] 400 mg PO BID@0530,1730 Metoprolol Succinate (ER) [Toprol XL] 50 mg PO DAILY@0530 QUEtiapine [SEROquel] 25 mg PO HS PRN tab PRN Reason: Agitation Potassium Chloride ER [K-Dur 10] 10 meq PO BID@0530,1730 Torsemide [Demadex] 20 mg PO DAILY@0530 Discontinued ALPRAZolam [Xanax] 0.5 mg PO BID PRN PRN Reason: Anxiety Discharge Medication List Omeprazole [PriLOSEC] 20 mg PO BID@0530,1730 07/19/16 [History] Atorvastatin Calcium [Lipitor] 80 mg PO HS@17310/30/19 [History] Cetirizine HCl [Zyrtec] 10 mg PO DAILY@0510/30/19 [History] Ticagrelor [Brilinta] 90 mg PO BID@0530,172910/30/19 [History] Tamsulosin [Flomax] 0.4 mg PO DAILY@0501/27/20 [History] Magnesium Oxide [Mag-Ox] 400 mg PO BID@0530,17303/25/20 [History] Midodrine [ProAmatine] 2.5 mg PO TID@0530,1200,172903/25/20 [History] Metoprolol Succinate (ER) [Toprol XL] 50 mg PO DAILY@0530 06/15/20 [History] QUEtiapine [SEROquel] 25 mg PO HS PRN tab 06/27/20 [Rx] Potassium Chloride ER [K-Dur 10] 10 meq PO BID@0530,17306/30/20 [History] Torsemide [Demadex] 20 mg PO DAILY@52906/30/20 [History] ALPRAZolam [Xanax] 0.5 mg PO BID PRN 2 Days #4 tab 07/02/20 [Rx] Acetaminophen Tab [Tylenol] 325 mg PO Q4HR PRN tab 07/02/20 [Rx] Ipratropium-Albuterol Nebulize [Duoneb 0.5 mg-3 mg/3 ml Soln] 3 ml INHALATION RT-TID ml 07/02/20 [Rx] Lidocaine 5% Patch [Lidoderm 5% Patch] 1 patch TOPICAL DAILY patch 07/02/20 [Rx] Follow up Appointment(s)/Referral(s): Carlitos Pandey MD [Primary Care Provider] - 1-2 days Javad Turcios MD [STAFF PHYSICIAN] - 2 Weeks Sumit Hidalgo DO [STAFF PHYSICIAN] - 2 Weeks Activity/Diet/Wound Care/Special Instructions: Heart healthy diet with fluid and salt restriction to 1500 L per day Activity is limited until you see your doctor Discharge Disposition: TRANSFER TO SNF/ECF
[2020-07-03 14:29] VITALS: PULSE 88
--- NOTE | 2020-07-05 01:08 | CDI ---
Documentation Clarification Form Date: 07/05/2020 From: Deejay Preciado Phone: If you have a question about this query, please contact Nehal [facility] [employer] at [phone] between 8am and 5pm. Admit Date: 06/30/2020 Discharge Date: 07/03/2020 Patient Name: Tho Chamorro Visit Number: [id number] ATTENTION: The Clinical Documentation Specialists (CDI) and [facility] Coding Staff appreciate your assistance in clarifying documentation. Please respond to the clarification below the line at the bottom and electronically sign. The CDI & [facility] Coding staff will review the response and follow-up if needed. Please note: Queries are made part of the Legal Health Record. If you have any questions, please contact the author of this message via ITS. Dear Willam Robbins MD., Myocardial infarction is documented in the HP and DS as "Possible NSTEMI" Patient History/Risk Factors: HTN, CKD stage 3, Atrial fibrillation Troponin: 0.048 EKG Results: EKG shows a normal sinus rhythm with occasional PVCs, nonspecific ST-T wave changes Treatment: IV Lasix Dr. Nadiya Flores MD note "Troponin abnormality, improved from this recent admission, not suggestive of acute coronary syndrome". 07/02 your progress note stated " acute systolic CHF and possible non-STEMI, however.Less likely". Per DS "Possible NSTEMI" In order to capture the severity of condition and necessary documentation specificity, please clarify: Possible NSTEMI ruled in Possible NSTEMI ruled out Other, Please specify unable to determine, please refer to specialist PALD
== END 2020-07-03 14:48 | DRG 291 ==
LOC: EC 15:29 → 3SCARD 20:13
PROVIDERS: ADMIT Internal Medicine; ATTEND Internal Medicine
DX: I13.0 Hypertensive heart and chronic kidney disease with heart failure and stage 1 through stage 4 chronic kidney disease, or unspecified chronic kidney disease (principal); I50.23 Acute on chronic systolic (congestive) heart failure; J44.1 Chronic obstructive pulmonary disease with (acute) exacerbation; N17.9 Acute kidney failure, unspecified; E78.5 Hyperlipidemia, unspecified; D63.1 Anemia in chronic kidney disease; Z66 Do not resuscitate; F03.90 Unspecified dementia, unspecified severity, without behavioral disturbance, psychotic disturbance, mood disturbance, and anxiety; R33.8 Other retention of urine; N18.30 Chronic kidney disease, stage 3 unspecified; I49.3 Ventricular premature depolarization; I34.0 Nonrheumatic mitral (valve) insufficiency; M54.5 Low back pain; F17.200 Nicotine dependence, unspecified, uncomplicated; I25.10 Atherosclerotic heart disease of native coronary artery without angina pectoris; I27.20 Pulmonary hypertension, unspecified; I48.0 Paroxysmal atrial fibrillation; K21.9 Gastro-esophageal reflux disease without esophagitis; M19.90 Unspecified osteoarthritis, unspecified site; N40.1 Benign prostatic hyperplasia with lower urinary tract symptoms; Z79.899 Other long term (current) drug therapy; Z79.02 Long term (current) use of antithrombotics/antiplatelets; Z87.01 Personal history of pneumonia (recurrent); I25.2 Old myocardial infarction; Z90.89 Acquired absence of other organs; Z98.890 Other specified postprocedural states; Z98.49 Cataract extraction status, unspecified eye; Z95.5 Presence of coronary angioplasty implant and graft; Z82.49 Family history of ischemic heart disease and other diseases of the circulatory system; Z82.3 Family history of stroke; Z91.19 Patient's noncompliance with other medical treatment and regimen
CPT/HCPCS: 36415; 71046; 74230; 80048; 80053; 82550; 83605; 83735; 83880; 84484; 85025; 85379; 85610; 85730; 93005; 94640; 96365; 96366; 96376; 99285

== ENCOUNTER 2020-07-11 20:17 | Inpatient (IN) | payer MEDICARE, OTHER ==
[2020-07-11] MEDS ORDERED: IPRATROPIUM-ALBUTEROL 3 ML NEB INHALATION STA (20:32)
[2020-07-11] MEDS ORDERED: IPRATROPIUM 0.5 MG/2.5 ML NEBU INHALATION STA (20:33)
[2020-07-11] MEDS ORDERED: ALBUTEROL NEBULIZED 2.5 MG/3 ML INHALATION STA (20:33)
--- NOTE | 2020-07-11 20:33 | ED ---
SOB HPI - General Chief Complaint: Shortness of Breath Stated Complaint: HALIMA Time Seen by Provider: 07/11/20 20:18 Source: EMS, RN notes reviewed, old records reviewed Mode of arrival: EMS Limitations: no limitations - History of Present Illness Initial Comments: This is a 74-year-old male DF for evaluation patient Dese for evaluation regarding severe shortness of breath poor story and significant work of breathing and shortness of breath. Patient has persistent shortness of breath here in the ER recent inpatient hospitalization with prolonged rehabilitation process first a home was today patient went to bed and significantly was worse when he woke up with his breathing MD Complaint: shortness of breath, cough, anxiety -: hour(s) Severity: severe Severity scale (1-10): 8 Consistency: constant Improves With: nothing Worsens With: nothing Known History Of: COPD, congestive heart failure Associated Symptoms: cough, orthopnea, palpitations Treatments Prior to Arrival: none - Related Data Home Medications Medication Instructions Recorded Confirmed Omeprazole [PriLOSEC] 20 mg PO BID 07/19/16 07/11/20 Atorvastatin Calcium [Lipitor] 80 mg PO HS 10/30/19 07/11/20 Cetirizine HCl [Zyrtec] 10 mg PO DAILY 10/30/19 07/11/20 Ticagrelor [Brilinta] 90 mg PO BID 10/30/19 07/11/20 Tamsulosin [Flomax] 0.4 mg PO DAILY 01/27/20 07/11/20 Magnesium Oxide [Mag-Ox] 400 mg PO BID 03/25/20 07/11/20 Metoprolol Succinate (ER) [Toprol 50 mg PO DAILY 06/15/20 07/11/20 XL] Potassium Chloride ER [K-Dur 10] 10 meq PO BID 06/30/20 07/11/20 Torsemide [Demadex] 20 mg PO DAILY 06/30/20 07/11/20 Acetaminophen Tab [Tylenol] 650 mg PO Q4HR PRN 07/11/20 07/11/20 Furosemide [Lasix] 40 mg PO DAILY 07/11/20 07/11/20 Midodrine HCl [ProAmantine] 2.5 mg PO TID 07/11/20 07/11/20 Previous Rx's Medication Instructions Recorded ALPRAZolam [Xanax] 0.5 mg PO BID PRN 2 Days #4 tab 07/02/20 Ipratropium-Albuterol Nebulize 3 ml INHALATION RT-TID ml 07/02/20 [Duoneb 0.5 mg-3 mg/3 ml Soln] Lidocaine 5% Patch [Lidoderm 5% 1 patch TOPICAL DAILY patch 07/02/20 Patch] Allergies Allergy/AdvReac Type Severity Reaction Status Date / Time No Known Allergies Allergy Verified 07/11/20 20:30 Review of Systems ROS Statement: Those systems with pertinent positive or pertinent negative responses have been documented in the HPI. ROS Other: All systems not noted in ROS Statement are negative. Past Medical History Past Medical History: Coronary Artery Disease (CAD), Chest Pain / Angina, Heart Failure, COPD, GERD/Reflux, Hyperlipidemia, Hypertension, Liver Disease, Myocardial Infarction ([place]), Osteoarthritis (OA), Pneumonia Additional Past Medical History / Comment(s): 06/15/20 pt states he self caths once in awhile at homeCoronary artery disease with previous stenting of the LAD. The patient was investigated and declined for bypass surgery in the past, CHF with an ejection fraction of 20-25%, chronic stage IV kidney disease, BPH, secondary pulmonary hypertension, chronic atrial fibrillation, chronic anemia, COPD, chronic obstructive uropathy secondary to BPH and the patient does self- catheterization at home, osteoarthritis, generalized weakness and episodes of falls Last Myocardial Infarction Date:: 2015 History of Any Multi-Drug Resistant Organisms: None Reported Past Surgical History: Adenoidectomy, Heart Catheterization, Hernia Repair, Tonsillectomy Additional Past Surgical History / Comment(s): COLONOSCOPY,CATARACTS. recent heart cath -has triple vessel disease-no sx as of yet. Past Anesthesia/Blood Transfusion Reactions: No Reported Reaction Date of Last Stent Placement:: 2015 Past Psychological History: No Psychological Hx Reported Smoking Status: Current some day smoker Past Alcohol Use History: None Reported Past Drug Use History: None Reported - Past Family History Mother Family Medical History: Myocardial Infarction ([place]) Additional Family Medical History / Comment(s): Mother had a [place] in her 80s and . Brother(s) Family Medical History: CVA/TIA Sister(s) Family Medical History: CVA/TIA Father Family Medical History: No Reported History Additional Family Medical History / Comment(s): Father when pt was young from a drowning. General Exam Limitations: no limitations General appearance: alert, in no apparent distress, anxious, in distress Head exam: Present: atraumatic, normocephalic, normal inspection Eye exam: Present: normal appearance, PERRL, EOMI. Absent: scleral icterus, conjunctival injection, periorbital swelling ENT exam: Present: normal exam, mucous membranes moist Neck exam: Present: normal inspection. Absent: tenderness, meningismus, lymphadenopathy Respiratory exam: Present: respiratory distress, wheezes, accessory muscle use, decreased breath sounds, prolonged expiratory. Absent: rales, rhonchi, stridor Cardiovascular Exam: Present: regular rate, normal rhythm, normal heart sounds. Absent: systolic murmur, diastolic murmur, rubs, gallop, clicks GI/Abdominal exam: Present: soft, normal bowel sounds. Absent: distended, tenderness, guarding, rebound, rigid Extremities exam: Present: normal inspection, full ROM, normal capillary refill. Absent: tenderness, pedal edema, joint swelling, calf tenderness Back exam: Present: normal inspection Neurological exam: Present: alert, oriented X3, CN II-XII intact Psychiatric exam: Present: normal affect, normal mood Skin exam: Present: warm, dry, intact, normal color. Absent: rash Course Vital Signs 07/11/20 07/11/20 07/11/20 20:27 20:47 21:14 Temperature 97.6 F Pulse Rate 98 101 H 100 Respiratory 26 H Rate Blood Pressure 108/85 O2 Sat by Pulse 100 Oximetry - Reevaluation(s) Reevaluation #1: 07/11/20 21:26 Medical records reviewed Reevaluation #2: 07/11/20 21:26 Patient is without fever no pain Reevaluation #3: 07/11/20 21:26 Symptoms improved with breathing treatments - Consultations Consultation #1: Spoke with [facility] were agreeable to admit this patient Medical Decision Making - Medical Decision Making 74 male DF for evaluation patient Dese for evaluation regards to severe shortness of breath CHF and COPD, patient will be admitted for evaluation diuresis breathing treatments and cardiopulmonary resuscitation - Lab Data Result diagrams: 07/11/20 20:33 07/11/20 20:33 Lab Results 07/11/20 07/11/20 07/11/20 Range/Units 20:33 20:33 20:33 WBC 5.4 (3.8-10.6) k/uL RBC 4.70 (4.30-5.90) m/uL Hgb 11.0 L (13.0-17.5) gm/dL Hct 36.9 L (39.0-53.0) % MCV 78.4 L (80.0-100.0) fL MCH 23.4 L (25.0-35.0) pg MCHC 29.9 L (31.0-37.0) g/dL RDW 18.2 H (11.5-15.5) % Plt Count 307 (150-450) k/uL Neutrophils % (Manual) 56 % Lymphocytes % (Manual) 34 % Monocytes % (Manual) 6 % Eosinophils % (Manual) 4 % Neutrophils # (Manual) 3.02 (1.3-7.7) k/uL Lymphocytes # (Manual) 1.84 (1.0-4.8) k/uL Monocytes # (Manual) 0.32 (0-1.0) k/uL Eosinophils # (Manual) 0.22 (0-0.7) k/uL Nucleated RBCs 0 (0-0) /100 WBC Manual Slide Review Performed Hypochromasia Marked Poikilocytosis Slight Poikilocytosis (manual Present Anisocytosis Slight Anisocytosis (manual) Present Microcytosis Slight Target Cells Present Tear Drop Cells Present Ovalocytes Present Crenated Cell Present PT 14.1 H (9.0-12.0) sec INR 1.4 H (<1.2) APTT 23.5 (22.0-30.0) sec Sodium 140 (137-145) mmol/L Potassium 5.5 H (3.5-5.1) mmol/L Chloride 102 (98-107) mmol/L Carbon Dioxide 27 (22-30) mmol/L Anion Gap 11 mmol/L BUN 45 H (9-20) mg/dL Creatinine 2.37 H (0.66-1.25) mg/dL Est GFR (CKD-EPI)AfAm 30 (>60 ml/min/1.73 sqM) Est GFR (CKD-EPI)NonAf 26 (>60 ml/min/1.73 sqM) Glucose 114 H (74-99) mg/dL Calcium 9.2 (8.4-10.2) mg/dL Magnesium 1.2 L (1.6-2.3) mg/dL Total Bilirubin 0.8 (0.2-1.3) mg/dL AST 33 (17-59) U/L ALT 23 (4-49) U/L Alkaline Phosphatase 155 H (38-126) U/L Troponin I (0.000-0.034) ng/mL NT-Pro-B Natriuret Pep pg/mL Total Protein 8.2 (6.3-8.2) g/dL Albumin 4.6 (3.5-5.0) g/dL 07/11/20 07/11/20 Range/Units 20:33 20:33 WBC (3.8-10.6) k/uL RBC (4.30-5.90) m/uL Hgb (13.0-17.5) gm/dL Hct (39.0-53.0) % MCV (80.0-100.0) fL MCH (25.0-35.0) pg MCHC (31.0-37.0) g/dL RDW (11.5-15.5) % Plt Count (150-450) k/uL Neutrophils % (Manual) % Lymphocytes % (Manual) % Monocytes % (Manual) % Eosinophils % (Manual) % Neutrophils # (Manual) (1.3-7.7) k/uL Lymphocytes # (Manual) (1.0-4.8) k/uL Monocytes # (Manual) (0-1.0) k/uL Eosinophils # (Manual) (0-0.7) k/uL Nucleated RBCs (0-0) /100 WBC Manual Slide Review Hypochromasia Poikilocytosis Poikilocytosis (manual Anisocytosis Anisocytosis (manual) Microcytosis Target Cells Tear Drop Cells Ovalocytes Crenated Cell PT (9.0-12.0) sec INR (<1.2) APTT (22.0-30.0) sec Sodium (137-145) mmol/L Potassium (3.5-5.1) mmol/L Chloride (98-107) mmol/L Carbon Dioxide (22-30) mmol/L Anion Gap mmol/L BUN (9-20) mg/dL Creatinine (0.66-1.25) mg/dL Est GFR (CKD-EPI)AfAm (>60 ml/min/1.73 sqM) Est GFR (CKD-EPI)NonAf (>60 ml/min/1.73 sqM) Glucose (74-99) mg/dL Calcium (8.4-10.2) mg/dL Magnesium (1.6-2.3) mg/dL Total Bilirubin (0.2-1.3) mg/dL AST (17-59) U/L ALT (4-49) U/L Alkaline Phosphatase (38-126) U/L Troponin I 0.028 (0.000-0.034) ng/mL NT-Pro-B Natriuret Pep 57948 pg/mL Total Protein (6.3-8.2) g/dL Albumin (3.5-5.0) g/dL - EKG Data -: EKG Interpreted by Me (EKG is sinus tachycardia 102 NV 206 QRS 104 QTC 443) - Radiology Data Radiology results: report reviewed (Chest x-ray shows significant edema and pleural effusion), image reviewed Critical Care Time Critical Care Time: Yes Total Critical Care Time: 31 Disposition Clinical Impression: Congestive heart failure (CHF), Acute respiratory failure, Weakness, COPD (chronic obstructive pulmonary disease), Acute exacerbation of chronic obstructive pulmonary disease, Renal insufficiency syndrome, BALBINA (acute kidney injury) Disposition: ADMITTED IP TO THIS HOSP Condition: Serious Is patient prescribed a controlled substance at d/c from ED?: No Referrals: Carlitos Pandey MD [Primary Care Provider] - 1-2 days
[2020-07-11 20:54] LABS: Albumin 4.6 g/dL (3.5-5.0); Calcium 9.2 mg/dL (8.4-10.2); Magnesium 1.2 mg/dL (1.6-2.3); Potassium 5.5 mmol/L (3.5-5.1); Total Bilirubin 0.8 mg/dL (0.2-1.3); Total Protein 8.2 g/dL (6.3-8.2)
[2020-07-11 20:57] LABS: Anisocytosis Slight; HCT 36.9 % (39.0-53.0); Hypochromasia Marked; MCH 23.4 pg (25.0-35.0); MCHC 29.9 g/dL (31.0-37.0); MCV 78.4 fL (80.0-100.0); Mean Platelet Volume 8.5; Microcytosis Slight; Platelet Count 307 k/uL (150-450); Poikilocytosis Slight; RDW 18.2 % (11.5-15.5); WBC 5.4 k/uL (3.8-10.6)
--- NOTE | 2020-07-11 20:59 | XR ---
EXAMINATION TYPE: XR chest 1V portable DATE OF EXAM: 07/11/2020 COMPARISON: 06/30/2020 HISTORY: Short of breath TECHNIQUE: Single view FINDINGS: There is moderate right pleural effusion. There is right lower lobe infiltrate. There is no heart failure. Heart is enlarged. There are chest leads. IMPRESSION: Right pleural effusion and right lower lobe infiltrate or increased compared to recent ex am. No obvious heart failure.
[2020-07-11 21:00] LABS: INR 1.4 (<1.2); Partial Thromboplastin Time 23.5 sec (22.0-30.0); Prothrombin Time 14.1 sec (9.0-12.0)
[2020-07-11 21:19] LABS: Eosinophils # (M) 0.22 k/uL (0-0.7); Lymphocytes # (M) 1.84 k/uL (1.0-4.8); Monocytes # (M) 0.32 k/uL (0-1.0); Neutrophils # (M) 3.02 k/uL (1.3-7.7); Neutrophils % (M) 56 %; Nucleated Red Blood Cells 0 /100 WBC (0-0); Total Cells Counted 100
[2020-07-11 21:20] LABS: Anisocytosis (M) Present; Crenated RBC Present; Ovalocytes Present; Poikilocytosis (M) Present; Target Cells Present; Tear Drop Cells Present
[2020-07-11] MEDS ORDERED: IPRATROPIUM-ALBUTEROL 3 ML NEB INHALATION PRN (21:23)
[2020-07-11] MEDS ORDERED: methylPREDNISolone SOD SUCCI 125 MG/2 ML VIAL IV STA (21:23)
[2020-07-11] MEDS ORDERED: MORPHINE SULFATE 4 MG/ML SYRINGE IVP STA (22:24)
[2020-07-11] MEDS: FUROSEMIDE 10 MG/ML 4 ML VIAL IV SCH (22:24)
[2020-07-11] MEDS: methylPREDNISolone SOD SUCCI 125 MG/2 ML VIAL IV SCH (23:11)
[2020-07-12] MEDS: MAGNESIUM SULFATE-D5W PMX 1 GM in DEXTROSE/WATER 1 100ML.BAG IVPB SCH ×2 (04:09→05:53)
[2020-07-12] MEDS: methylPREDNISolone SOD SUCCI 125 MG/2 ML VIAL IV SCH ×4 (05:51→23:08)
[2020-07-12 06:07] LABS: Glucose,Whole Blood 161 mg/dL (75-99)
[2020-07-12] MEDS: INSULIN ASPART (NovoLOG) 100 UNIT/ML VIAL SQ SCH ×4 (06:39→20:22)
[2020-07-12 07:21] LABS: Magnesium 1.6 mg/dL (1.6-2.3); Potassium 4.7 mmol/L (3.5-5.1)
[2020-07-12 08:02] LABS: Anisocytosis Slight; Basophils % (A) 1 %; Eosinophils % (A) 1 %; HCT 29.6 % (39.0-53.0); Hypochromasia Marked; Lymphocytes # (A) 0.3 k/uL (1.0-4.8); Lymphocytes % (A) 9 %; MCH 23.9 pg (25.0-35.0); MCHC 30.6 g/dL (31.0-37.0); MCV 77.9 fL (80.0-100.0); Mean Platelet Volume 8.2; Microcytosis Slight; Monocytes # (A) 0.1 k/uL (0-1.0); Monocytes % (A) 2 %; Neutrophils # (A) 2.9 k/uL (1.3-7.7); Neutrophils % (A) 88 %; Platelet Count 252 k/uL (150-450); Poikilocytosis Slight; WBC 3.3 k/uL (3.8-10.6)
[2020-07-12 08:04] LABS: HGB 9.1 gm/dL (13.0-17.5)
[2020-07-12] MEDS: ALBUTEROL NEBULIZED 2.5 MG/3 ML INHALATION SCH ×4 (08:06→20:23)
[2020-07-12] MEDS ORDERED: ENOXAPARIN 40 MG/0.4 ML SYRINGE SQ SCH (09:00)
[2020-07-12] MEDS: FUROSEMIDE 10 MG/ML 4 ML VIAL IV SCH ×2 (09:11→19:51)
[2020-07-12] MEDS: MORPHINE SULFATE 4 MG/ML SYRINGE IVP PRN ×2 (09:11→18:24)
--- NOTE | 2020-07-12 09:11 | P.CRDCN ---
History of Present Illness Consult date: 07/12/20 Consult reason: congestive heart failure History of present illness: History of present illness: This is a 74-year-old gentleman who follows with Dr. Diop in the office. He has a history of hypertension, hyperlipidemia, prior liver disease, history of EtOH abuse, COPD, GERD, history of coronary artery disease with prior successful stenting of the LAD, chronic kidney disease. he was recently hospitalized and discharged on July 03 at which time he was treated for acute on chronic systolic heart failure with known ejection fraction of 20-25% and bilateral pleural effusions. His echo performed in March showed an ejection fraction of 20-25% with mild to moderate mitral regurgitation. Patient presented to the emergency center due to symptoms of shortness of breath. patient states that he had come out of the bathroom sit on the edge of the bed and then got into bed. He states that he was either falling asleep or passing out and he had sudden onset of shortness of breath. EMS was called and he was brought into the hospital. Patient states he has to sleep with his head of the bed up. He has occasional cough with sputum production usually white in color. He denies having any fever or chills. He denies any lower extremity edema but states he feels his legs are 150 pounds. Patient also concerned that he has incontinence of urine. This is not new for patient. Patient was found to be afebrile, heart rate 98, blood pressure 108/85, pulse ox 100%on 6 L nasal cannula. WBC 5.4, hemoglobin 11. Sodium 140, potassium 5.5, chloride 102, CO2 27, BUN 45 and creatinine 2.37. Blood sugar 114. Magnesium 1.2.Troponin 0.028, 0.023, 0.023. ProBNP 19,200. EKG is sinus tachycardia with heart rate of 102 with PACs. Chest x-ray reveals right pleural effusion and right lower lobe infiltrate or increased compared to recent exam. No obvious heart failure. Repeat blood work this morning reveals WBC 3.3, hemoglobin 9.1. Potassium 4.7, BUN 45 and creatinine 2.19. Weight is down 1 kg. Patient states he has been urinating frequently during the night. Review Of Systems: Constitutional: No fever, no chills. reports weakness, reports fatigue. EENT: No headache. No dizziness. Lungs: reports shortness of breath, cough, no sputum production. No wheezing. Cardiovascular: No chest pain, no lower extremity edema. No palpitations. No paroxysmal nocturnal dyspnea. reports orthopnea. No lightheadedness or dizziness. No syncopal episodes. Abdominal: No abdominal pain. No nausea, vomiting. No diarrhea. No constipation. No bloody or tarry stools. No loss of appetite. Genitourinary: No dysuria.. No urinary retention.reports urinary incontinence. Musculoskeletal: No myalgias. reports muscle weakness, no gait dysfunction, no frequent falls. Integumentary: No wounds. No rash or pruritus. Neurologic: No aphasia. No facial droop. No change in mentation. Physical examination: Gen: This is a 74-year-old male. He is resting in bed and appears to be slightly dyspneic at rest. VS: afebrile, heart rate 92, blood pressure 106/73, pulse ox 100% on 5 L nasal cannula. HEENT: Head is atraumatic, normocephalic. Pupils equal, round. Sclerae is anicteric. NECK: Supple. No JVD. No lymphadenopathy. No thyromegaly. LUNGS: diminished bilaterally more so to the right base. few scattered expiratory wheeze. mild accessory muscle usage, mild intercostal retractions. HEART: Regular rate and rhythm. No murmur. ABDOMEN: Soft. Bowel sounds are present. No masses. No tenderness. EXTREMITIES: No pedal edema. No calf tenderness.dorsalis pedis +2 bilaterally. NEUROLOGICAL: Patient is awake, alert and oriented x3. Cranial nerves 2 through 12 are grossly intact. Assessment: Acute on chronic systolic heart failure Right pleural effusion status post thoracentesis of 1500 mL Paroxysmal atrial fibrillation Hypertension Hyperlipidemia Coronary artery disease with prior LAD stenting Chronic kidney failure COPD GERD Dementia Plan: Continue Lasix 40 mg IV every 12 hours monitor I&O and daily weights, electrolytes and renal function Toprol-XL 50 mg daily, Brilinta 90 mg twice daily, Lipitor 80 mg at bedtime resumed No need to repeat echocardiogram Further recommendations to follow based upon clinical course Thank you kindly for this consultation. Nurse practitioner note has been reviewed, I agree with documented findings and plan of care. Patient was seen and examined. Past Medical History Past Medical History: Coronary Artery Disease (CAD), Chest Pain / Angina, Heart Failure, COPD, GERD/Reflux, Hyperlipidemia, Hypertension, Liver Disease, Myocardial Infarction ([place]), Osteoarthritis (OA), Pneumonia Additional Past Medical History / Comment(s): 06/15/20 pt states he self caths once in awhile at homeCoronary artery disease with previous stenting of the LAD. The patient was investigated and declined for bypass surgery in the past, CHF with an ejection fraction of 20-25%, chronic stage IV kidney disease, BPH, secondary pulmonary hypertension, chronic atrial fibrillation, chronic anemia, COPD, chronic obstructive uropathy secondary to BPH and the patient does self- catheterization at home, osteoarthritis, generalized weakness and episodes of falls Last Myocardial Infarction Date:: 2015 History of Any Multi-Drug Resistant Organisms: None Reported Past Surgical History: Adenoidectomy, Heart Catheterization, Hernia Repair, Tonsillectomy Additional Past Surgical History / Comment(s): COLONOSCOPY,CATARACTS. recent heart cath -has triple vessel disease-no sx as of yet. Past Anesthesia/Blood Transfusion Reactions: No Reported Reaction Date of Last Stent Placement:: 2015 Past Psychological History: No Psychological Hx Reported Additional Psychological History / Comment(s): Pt resides alone. He uses a cane or walker. He owns a electric scooter. Pt gets to [employer] by cab. Smoking Status: Current some day smoker Past Alcohol Use History: None Reported Additional Past Alcohol Use History / Comment(s): pt stated he started smoking and drinking ETOH at the age of 66; a pack will last him 3-4 days; has not had ETOH in 1 yr Past Drug Use History: None Reported - Past Family History Mother Family Medical History: Myocardial Infarction ([place]) Additional Family Medical History / Comment(s): Mother had a [place] in her 80s and . Brother(s) Family Medical History: CVA/TIA Sister(s) Family Medical History: CVA/TIA Father Family Medical History: No Reported History Additional Family Medical History / Comment(s): Father when pt was young from a drowning. Medications and Allergies Home Medications Medication Instructions Recorded Confirmed Type Omeprazole [PriLOSEC] 20 mg PO BID 07/19/16 07/11/20 History Atorvastatin Calcium [Lipitor] 80 mg PO HS 10/30/19 07/11/20 History Cetirizine HCl [Zyrtec] 10 mg PO DAILY 10/30/19 07/11/20 History Ticagrelor [Brilinta] 90 mg PO BID 10/30/19 07/11/20 History Tamsulosin [Flomax] 0.4 mg PO DAILY 01/27/20 07/11/20 History Magnesium Oxide [Mag-Ox] 400 mg PO BID 03/25/20 07/11/20 History Metoprolol Succinate (ER) [Toprol 50 mg PO DAILY 06/15/20 07/11/20 History XL] Potassium Chloride ER [K-Dur 10] 10 meq PO BID 06/30/20 07/11/20 History Torsemide [Demadex] 20 mg PO DAILY 06/30/20 07/11/20 History ALPRAZolam [Xanax] 0.5 mg PO BID PRN 2 Days #4 tab 07/02/20 07/11/20 Rx Ipratropium-Albuterol Nebulize 3 ml INHALATION RT-TID ml 07/02/20 07/11/20 Rx [Duoneb 0.5 mg-3 mg/3 ml Soln] Acetaminophen Tab [Tylenol] 650 mg PO Q4HR PRN 07/11/20 07/11/20 History Bismuth Subsalicylate 524 mg PO Q4H PRN 07/11/20 07/11/20 History [Pepto-Bismol] Furosemide [Lasix] 40 mg PO DAILY 07/11/20 07/11/20 History Melatonin 3 mg PO HS 07/11/20 07/11/20 History Methyl Salicylate/Menthol 1 patch TOPICAL DAILY PRN 07/11/20 07/11/20 History [Salonpas Patch] Midodrine HCl [ProAmantine] 2.5 mg PO TID 07/11/20 07/11/20 History Allergies Allergy/AdvReac Type Severity Reaction Status Date / Time No Known Allergies Allergy Verified 07/11/20 21:44 Physical Exam Vitals: Vital Signs Temp Pulse Pulse Resp BP BP Pulse Ox 07/12/20 08:17 94 07/12/20 08:07 92 07/12/20 04:00 97.3 F L 98 21 106/73 100 07/12/20 00:00 97.2 F L 90 22 105/67 100 07/11/20 22:29 97.8 F 07/11/20 22:15 94 22 98/76 96 07/11/20 21:14 100 07/11/20 20:47 101 H 07/11/20 20:27 97.6 F 98 26 H 108/85 100 Intake and Output 07/11/20 07/12/20 07/12/20 22:59 06:59 14:59 Intake Total 240 Balance 240 Intake: Oral 240 Other: Voiding Method Bedside Commode Urinal Self-Catheterization # Voids 1 2 Weight 77.564 kg 76.2 kg Results 07/12/20 06:41 07/12/20 06:41 Cardiac Enzymes 07/11/20 07/11/20 07/11/20 Range/Units 20:33 20:33 23:20 AST 33 (17-59) U/L Troponin I 0.028 0.023 (0.000-0.034) ng/mL 07/12/20 Range/Units 02:59 AST (17-59) U/L Troponin I 0.023 (0.000-0.034) ng/mL Coagulation 07/11/20 Range/Units 20:33 PT 14.1 H (9.0-12.0) sec APTT 23.5 (22.0-30.0) sec CBC 07/11/20 07/12/20 Range/Units 20:33 06:41 WBC 5.4 3.3 L (3.8-10.6) k/uL RBC 4.70 3.80 L (4.30-5.90) m/uL Hgb 11.0 L 9.1 L D (13.0-17.5) gm/dL Hct 36.9 L 29.6 L (39.0-53.0) % Plt Count 307 252 (150-450) k/uL Comprehensive Metabolic Panel 07/11/20 07/12/20 Range/Units 20:33 06:41 Sodium 140 139 (137-145) mmol/L Potassium 5.5 H 4.7 (3.5-5.1) mmol/L Chloride 102 101 (98-107) mmol/L Carbon Dioxide 27 25 (22-30) mmol/L BUN 45 H 45 H (9-20) mg/dL Creatinine 2.37 H 2.19 H (0.66-1.25) mg/dL Glucose 114 H 169 H (74-99) mg/dL Calcium 9.2 9.0 (8.4-10.2) mg/dL AST 33 (17-59) U/L ALT 23 (4-49) U/L Alkaline Phosphatase 155 H (38-126) U/L Total Protein 8.2 (6.3-8.2) g/dL Albumin 4.6 (3.5-5.0) g/dL Current Medications Generic Name Dose Route Start Last Admin Trade Name Freq PRN Reason Stop Dose Admin Albuterol Sulfate 2.5 mg 07/12/20 08:00 07/12/20 08:06 Albuterol Nebulized 2.5 Mg/3 Ml INHALATION 2.5 mg RT-QID TI Administration Albuterol/Ipratropium 3 ml 07/11/20 21:23 Ipratropium-Albuterol 3 Ml Neb INHALATION RT-Q4H PRN Shortness Of Breath Or Wheezing Enoxaparin Sodium 40 mg 07/12/20 09:00 Enoxaparin 40 Mg/0.4 Ml Syringe SQ DAILY TI Furosemide 40 mg 07/11/20 21:30 07/11/20 22:24 Furosemide 10 Mg/Ml 4 Ml Vial IV 40 mg Q12H TI Administration Insulin Aspart 0 unit 07/12/20 07:30 07/12/20 06:39 Insulin Aspart (Novolog) 100 Unit/Ml Vial SQ 3 unit ACHS TI Administration Protocol Methylprednisolone Sodium Succinate 60 mg 07/12/20 00:00 07/12/20 05:51 Methylprednisolone Sod Succi 125 Mg/2 Ml Vial IV 60 mg Q6HR TI Administration Morphine Sulfate 4 mg 07/11/20 22:24 Morphine Sulfate 4 Mg/Ml Syringe IVP Q4HR PRN Pain Intake and Output 07/11/20 07/12/20 07/12/20 22:59 06:59 14:59 Intake Total 240 Balance 240 Intake: Oral 240 Other: Voiding Method Bedside Commode Urinal Self-Catheterization # Voids 1 2 Weight 77.564 kg 76.2 kg 07/12/20 06:41 07/12/20 06:41
[2020-07-12] MEDS: METOPROLOL SUCCINATE (ER) 50 MG TAB.ER.24H PO SCH (09:12)
[2020-07-12] MEDS: TICAGRELOR 90 MG TAB PO SCH ×2 (09:12→19:51)
--- NOTE | 2020-07-12 09:54 | P.CNPUL ---
History of Present Illness Consult date: 07/12/20 Reason for consult: pleural effusion History of present illness: This is a 74-year-old male patient known to us from previous hospital admissions was coming into the hospital because of worsening shortness of breath. The patient had come out of his bathroom and he said at the edge of the bed and he got quite dyspneic. He came into the ED and he was found to have further enlargement in the right-sided pleural effusion and for that reason a pulmonary consultation was requested. The patient is known to have congestion heart failure with an ejection fraction of 20-25%. The patient is also known to have chronic better pleural effusion. His echocardiogram at shown an ejection fraction of 20-25% and the patient has mild to moderate MR. He is known to have CAD, chronic stage IV kidney disease, hypertension and hyperlipidemia and previo us history of alcoholism. He has undergone previous successful stenting of the LAD. He was in the hospital approximately a month ago and after being treated he was released to [facility] on the [facility] for further rehabilitation. The patient is quite debilitated. He has a mild case of COPD. He has chronic urinary retention any on the lower self-catheterization. During this current admission, his troponins were 0.02 [id number] RESPECTIVELY. ProBNP level was 19,200. White cell count is at 9.1 with a potassium level of 4.7. BUN is 45 with a creatinine of 2.19. Review of Systems Constitutional: Reports fatigue, Reports weakness Eyes: denies as per HPI, denies blurred vision, denies bulging eye, denies decreased vision, denies diplopia, denies discharge, denies dry eye, denies irritation, denies itching, denies pain, denies photophobia, denies loss of peripheral vision, denies loss of vision, denies tunnel vision/blind spots Ears: The patient has chronic impairment in the hearing, ear discharge, earache, tinnitus Ears, nose, mouth and throat: Denies headache, Denies sore throat Breasts: absent: as per HPI, gynecomastia Cardiovascular: Reports decreased exercise tolerance, Reports dyspnea on ex ertion Respiratory: Reports dyspnea. Positive for right-sided pleural effusion Gastrointestinal: Reports as per HPI Genitourinary: Reports as per HPI (Urinary incontinence), and the patient undergoes self-catheterization. Musculoskeletal: Reports as per HPI, Reports gait dysfunction Musculoskeletal: absent: ankle pain, ankle stiffness, ankle swelling Integumentary: Reports as per HPI Neurological: Reports as per HPI, Reports weakness Psychiatric: Reports as per HPI Endocrine: Reports as per HPI Hematologic/Lymphatic: Reports as per HPI Allergic/Immunologic: Reports as per HPI Past Medical History Past Medical History: Coronary Artery Disease (CAD), Chest Pain / Angina, Heart Failure, COPD, GERD/Reflux, Hyperlipidemia, Hypertension, Liver Disease, Myocardial Infarction ([place]), Osteoarthritis (OA), Pneumonia Additional Past Medical History / Comment(s): 06/15/20 pt states he self caths once in awhile at homeCoronary artery disease with previous stenting of the LAD. The patient was investigated and declined for bypass surgery in the past, CHF with an ejection fraction of 20-25%, chronic stage IV kidney disease, BPH, secondary pulmonary hypertension, chronic atrial fibrillation, chronic anemia, COPD, chronic obstructive uropathy secondary to BPH and the patient does self- catheterization at home, osteoarthritis, generalized weakness and episodes of falls Last Myocardial Infarction Date:: 2015 History of Any Multi-Drug Resistant Organisms: None Reported Past Surgical History: Adenoidectomy, Heart Catheterization, Hernia Repair, Tonsillectomy Additional Past Surgical History / Comment(s): COLONOSCOPY,CATARACTS. recent heart cath -has triple vessel disease-no sx as of yet. Past Anesthesia/Blood Transfusion Reactions: No Reported Reaction Date of Last Stent Placement:: 2015 Past Psychological History: No Psychological Hx Reported Additional Psychological History / Comment(s): Pt resides alone. He uses a cane or walker. He owns a electric scooter. Pt gets to [employer] by cab. Smoking Status: Current some day smoker Past Alcohol Use History: None Reported Additional Past Alcohol Use History / Comment(s): pt stated he started smoking and drinking ETOH at the age of 66; a pack will last him 3-4 days; has not had ETOH in 1 yr Past Drug Use History: None Reported - Past Family History Mother Family Medical History: Myocardial Infarction (AZ) Additional Family Medical History / Comment(s): Mother had a [place] in her 80s and . Brother(s) Family Medical History: CVA/TIA Sister(s) Family Medical History: CVA/TIA Father Family Medical History: No Reported History Additional Family Medical History / Comment(s): Father when pt was young from a drowning. Medications and Allergies Home Medications Medication Instructions Recorded Confirmed Type Omeprazole [PriLOSEC] 20 mg PO BID 07/19/16 07/11/20 History Atorvastatin Calcium [Lipitor] 80 mg PO HS 10/30/19 07/11/20 History Cetirizine HCl [Zyrtec] 10 mg PO DAILY 10/30/19 07/11/20 History Ticagrelor [Brilinta] 90 mg PO BID 10/30/19 07/11/20 History Tamsulosin [Flomax] 0.4 mg PO DAILY 01/27/20 07/11/20 History Magnesium Oxide [Mag-Ox] 400 mg PO BID 03/25/20 07/11/20 History Metoprolol Succinate (ER) [Toprol 50 mg PO DAILY 06/15/20 07/11/20 History XL] Potassium Chloride ER [K-Dur 10] 10 meq PO BID 06/30/20 07/11/20 History Torsemide [Demadex] 20 mg PO DAILY 06/30/20 07/11/20 History ALPRAZolam [Xanax] 0.5 mg PO BID PRN 2 Days #4 tab 07/02/20 07/11/20 Rx Ipratropium-Albuterol Nebulize 3 ml INHALATION RT-TID ml 07/02/20 07/11/20 Rx [Duoneb 0.5 mg-3 mg/3 ml Soln] Acetaminophen Tab [Tylenol] 650 mg PO Q4HR PRN 07/11/20 07/11/20 History Bismuth Subsalicylate 524 mg PO Q4H PRN 07/11/20 07/11/20 History [Pepto-Bismol] Furosemide [Lasix] 40 mg PO DAILY 07/11/20 07/11/20 History Melatonin 3 mg PO HS 07/11/20 07/11/20 History Methyl Salicylate/Menthol 1 patch TOPICAL DAILY PRN 07/11/20 07/11/20 History [Salonpas Patch] Midodrine HCl [ProAmantine] 2.5 mg PO TID 07/11/20 07/11/20 History Allergies Allergy/AdvReac Type Severity Reaction Status Date / Time No Known Allergies Allergy Verified 07/11/20 21:44 Physical Exam Vitals: Vital Signs Temp Pulse Pulse Resp BP BP Pulse Ox 07/12/20 09:02 97.6 F 97 18 106/75 99 07/12/20 08:17 94 07/12/20 08:07 92 07/12/20 04:00 97.3 F L 98 21 106/73 100 07/12/20 00:00 97.2 F L 90 22 105/67 100 07/11/20 22:29 97.8 F 07/11/20 22:15 94 22 98/76 96 07/11/20 21:14 100 07/11/20 20:47 101 H 07/11/20 20:27 97.6 F 98 26 H 108/85 100 Intake and Output 07/11/20 07/12/20 07/12/20 22:59 06:59 14:59 Intake Total 240 Balance 240 Intake: Oral 240 Other: Voiding Method Bedside Commode Urinal Self-Catheterization # Voids 1 2 Weight 77.564 kg 76.2 kg Gen. appearance, comfortable, and the patient currently is in nonacute distress Head exam was generally normal. There was no scleral icterus or corneal arcus. Mucous membranes were moist. Neck was supple and without jugular venous distension, thyromegaly, or carotid bruits. Carotids were easily palpable bilaterally. There was no adenopathy. Lung sounds are diminished otherwise clear. No crackles or wheezes or rhonc hi.. The patient has diminished breath on the right lung base along with some dullness to percussion. heart sounds are regular and there is no S3 gallop. No cervical murmurs appreciated. Abdominal exam revealed normal bowel sounds. The abdomen was soft, non-tender, and without masses, organomegaly, or appreciable enlargement of the abdominal aorta. Examination of the extremities revealed easily palpable radial, femoral and pedal pulses. There was no cyanosis, clubbing or edema. Examination of the skin revealed no evidence of significant rashes, suspicious appearing nevi or other concerning lesions. Neurologically, the patient is awake and alert and the patient does not have any focal neurological deficit. Cranial nerves are essentially intact. Results - Laboratory Findings CBC and BMP: 07/12/20 06:41 07/12/20 06:41 PT/INR, D-dimer PT 14.1 sec (9.0-12.0) H 07/11/20 20:33 INR 1.4 (<1.2) H 07/11/20 20:33 Abnormal lab findings: Abnormal Labs 07/11/20 07/11/20 07/11/20 20:33 20:33 20:33 WBC RBC Hgb 11.0 L Hct 36.9 L MCV 78.4 L MCH 23.4 L MCHC 29.9 L RDW 18.2 H Lymphocytes # PT 14.1 H INR 1.4 H Potassium 5.5 H BUN 45 H Creatinine 2.37 H Glucose 114 H POC Glucose (mg/dL) Magnesium 1.2 L Alkaline Phosphatase 155 H 07/12/20 07/12/20 07/12/20 06:06 06:41 06:41 WBC 3.3 L RBC 3.80 L Hgb 9.1 L D Hct 29.6 L MCV 77.9 L MCH 23.9 L MCHC 30.6 L RDW 18.0 H Lymphocytes # 0.3 L PT INR Potassium BUN 45 H Creatinine 2.19 H Glucose 169 H POC Glucose (mg/dL) 161 H Magnesium Alkaline Phosphatase - Diagnostic Findings Chest x-ray: image reviewed Assessment and Plan Plan: 1 right-sided pleural effusion with interval increase in the size of the pleural effusion on the right with a small effusion on the left and the patient will benefit from a thoracentesis for diagnostic and therapeutic purposes. This is most likely CHF-related pleural effusion. 2 chronic kidney disease. Baseline renal function is consistent with stage IV kidney disease/failure 3 CHF with an ejection fraction of 20-25% secondary pulmonary hypertension 4 coronary artery disease with extensive multivessel disease with previous stenting of the LAD. The patient was investigated and declined for bypass surgery back in 2016 due to comorbidities. 5 chronic atrial fibrillation, not on anticoagulants 6 COPD, currently mild and inactive and stable. 7 chronic urinary retention 8 BPH and chronic obstructive uropathy. The patient performs self- catheterization. Patient also has chronic kidney disease stage 3-4 disease 9 degenerative disc disease involving the lumbar spine 10 chronic cerebral atrophy and along with a component of dementia 11 hyperlipidemia 12 hypertension 13 history of recurrent falls and gait dysfunction secondary to comorbidities 14 chronic microcytic anemia Plan We'll proceed with a diagnostic and therapeutic thoracentesis Continue duiretics and optimize CHF and cardiology on the case
--- NOTE | 2020-07-12 10:11 | P.PCN ---
Date of Procedure: 07/12/20 Preoperative Diagnosis: Right-sided pleural effusion Postoperative Diagnosis: right-sided pleural effusion Procedure(s) Performed: Thoracentesis Anesthesia: local Surgeon: Stephania Dill Estimated Blood Loss (ml): 0 Pathology: other Condition: stable Disposition: floor Operative Findings: A time out was performed and the chest x-ray was reviewed, the appropriate side was confirmed and marked. My hands were washed immediately prior to the procedure. I wore a surgical cap, mask with protective eyewear, sterile gown and sterile gloves throughout the procedure. The patient was prepped and draped in a sterile manner using chlorhexidine scrub after the appropriate level was pe rcussed and confirmed by ultrasound. 1% lidocaine was used to anesthesize the skin, subcutaneous tissue, superior aspect of the rib periosteum and parietal pleura. A finder needle was then introduced over the superior aspect of the rib to locate the pleural fluid; 2colored fluid was aspirated at a depth of approximately 2 cm. A 10-blade scalpel was used to nelia the skin at the insertion site. The [id number] needle was then introduced through the skin incision into the pleural space using negative aspiration pressure and the red colometric indicator to confirm appropriate positioning of the needle. The thoracentesis catheter was then threaded without difficulty, 1500. ml of turbid colored fluid was removed without difficulty. The catheter was then removed. No immediate complications were noted during the procedure. A post-procedure chest x-ray is pending at the time of this note. The fluid will be sent for studies. Estimated blood loss is 0cc
--- NOTE | 2020-07-12 10:45 | XR ---
EXAMINATION TYPE: XR chest 1V DATE OF EXAM: 07/12/2020 COMPARISON: 07/11/2020 HISTORY: Shortness of breath TECHNIQUE: Single frontal view of the chest is obtained. FINDINGS: There is marked interval reduction in size of pleural fluid on the right with some residua l fluid and consolidation. Tiny left effusion and basilar consolidation seen. No pneumothorax. Heart enlarged. Atherosclerotic change aorta. Arthropathy shoulders. Underlying COPD suspected. IMPRESSION: 1. No evidence of pneumothorax postthoracentesis.
[2020-07-12 11:52] VITALS: BMI 25.5
[2020-07-12 12:13] LABS: Glucose,Whole Blood 259 mg/dL (75-99)
[2020-07-12 12:55] LABS: Appearance,BF Clear; Color,BF Yellow; Nucleated Cells, Body Fluid 97 /uL; RBC, Body Fluid 55 /uL
[2020-07-12 12:57] LABS: Mononuclear WBC,Body Fluid 97 %; Polynuclear WBC,Body Fluid 3 %; Total Cells Counted,Body Fluid 100
[2020-07-12] MEDS ORDERED: ALPRAZolam 0.25 MG TAB PO STA (13:03)
--- NOTE | 2020-07-12 13:04 | P.HPIM ---
History of Present Illness This is a pleasant 74 years old male with multiple medical problems including coronary artery disease status post previous stent of the LAD, patient has declined bypass surgery in the past, chest pain, severe systolic heart failure with ejection fraction 20-25%, COPD, GERD, hyperlipidemia, hypertension, liver disease, osteoarthritis, chronic kidney disease stage 3, pulmonary hypertension, chronic atrial fibrillation, chronic anemia, COPD, chronic obstructive uropathy secondary to BPH and patient self catheterizes at home, generalized weakness and frequent falls, history of noncompliance and he signed himself AMA last month. patient presents this time because of dyspnea, with occasional cough and no chest pain patient was tachypneic and slightly hypoxic on emergency room, he was a 6 L oxygen saturating 100%. labs showing WBC of 3.3K, hemoglobin 9.1, platelets 251. Creatinine is elevated at 2.1, baseline creatinine is 1.3-1.8. Serial troponins are negative with 0.023 and proBNP is elevated 19 200. Liver enzymes not elevated. chest x-ray showing right pleural effusion and right lower lobe infiltrate emergency room patient resumed a breathing treatment and Solu-Medrol. also I asked the patient if he wants to talk to hospice team or palliative care team, he wanted to wait for now. He was asking to be given Xanax and [place] Review of Systems CONSTITUTIONAL: No fever, no malaise, no fatigue. HEENT: No recent visual problems or hearing problems. Denied any sore throat. CARDIOVASCULAR: No orthopnea, PND, no palpitations, no syncope. PULMONARY: No shortness of breath, no cough, no hemoptysis. GASTROINTESTINAL: No diarrhea, no nausea, no vomiting, no abdominal pain. Normoactive bowel sounds. NEUROLOGICAL: No headaches, no weakness, no numbness. HEMATOLOGICAL: Denies any bleeding or petechiae. GENITOURINARY: Denies any burning micturition, frequency, or urgency. MUSCULOSKELETAL/RHEUMATOLOGICAL: Denies any joint pain, swelling, or any muscle pain. ENDOCRINE: Denies any polyuria or polydipsia. Past Medical History Past Medical History: Coronary Artery Disease (CAD), Chest Pain / Angina, Heart Failure, COPD, GERD/Reflux, Hyperlipidemia, Hypertension, Liver Disease, Myocardial Infarction (HI), Osteoarthritis (OA), Pneumonia Additional Past Medical History / Comment(s): 06/15/20 pt states he self caths once in awhile at homeCoronary artery disease with previous stenting of the LAD. The patient was investigated and declined for bypass surgery in the past, CHF with an ejection fraction of 20-25%, chronic stage IV kidney disease, BPH, secondary pulmonary hypertension, chronic atrial fibrillation, chronic anemia, COPD, chronic obstructive uropathy secondary to BPH and the patient does self-catheterization at home, osteoarthritis, generalized weakness and episodes of falls Last Myocardial Infarction Date:: 2015 History of Any Multi-Drug Resistant Organisms: None Reported Past Surgical History: Adenoidectomy, Heart Catheterization, Hernia Repair, Tonsillectomy Additional Past Surgical History / Comment(s): COLONOSCOPY,CATARACTS. recent heart cath -has triple vessel disease-no sx as of yet. Past Anesthesia/Blood Transfusion Reactions: No Reported Reaction Date of Last Stent Placement:: 2015 Past Psychological History: No Psychological Hx Reported Additional Psychological History / Comment(s): Pt resides alone. He uses a cane or walker. He owns a electric scooter. Pt gets to [employer] by cab. Smoking Status: Current some day smoker Past Alcohol Use History: None Reported Additional Past Alcohol Use History / Comment(s): pt stated he started smoking and drinking ETOH at the age of 66; a pack will last him 3-4 days; has not had ETOH in 1 yr Past Drug Use History: None Reported - Past Family History Mother Family Medical History: Myocardial Infarction (HI) Additional Family Medical History / Comment(s): Mother had a [place] in her 80s and . Brother(s) Family Medical History: CVA/TIA Sister(s) Family Medical History: CVA/TIA Father Family Medical History: No Reported History Additional Family Medical History / Comment(s): Father when pt was young from a drowning. Medications and Allergies Home Medications Medication Instructions Recorded Confirmed Type Omeprazole [PriLOSEC] 20 mg PO BID 07/19/16 07/11/20 History Atorvastatin Calcium [Lipitor] 80 mg PO HS 10/30/19 07/11/20 History Cetirizine HCl [Zyrtec] 10 mg PO DAILY 10/30/19 07/11/20 History Ticagrelor [Brilinta] 90 mg PO BID 10/30/19 07/11/20 History Tamsulosin [Flomax] 0.4 mg PO DAILY 01/27/20 07/11/20 History Magnesium Oxide [Mag-Ox] 400 mg PO BID 03/25/20 07/11/20 History Metoprolol Succinate (ER) [Toprol 50 mg PO DAILY 06/15/20 07/11/20 History XL] Potassium Chloride ER [K-Dur 10] 10 meq PO BID 06/30/20 07/11/20 History Torsemide [Demadex] 20 mg PO DAILY 06/30/20 07/11/20 History ALPRAZolam [Xanax] 0.5 mg PO BID PRN 2 Days #4 tab 07/02/20 07/11/20 Rx Ipratropium-Albuterol Nebulize 3 ml INHALATION RT-TID ml 07/02/20 07/11/20 Rx [Duoneb 0.5 mg-3 mg/3 ml Soln] Acetaminophen Tab [Tylenol] 650 mg PO Q4HR PRN 07/11/20 07/11/20 History Bismuth Subsalicylate 524 mg PO Q4H PRN 07/11/20 07/11/20 History [Pepto-Bismol] Furosemide [Lasix] 40 mg PO DAILY 07/11/20 07/11/20 History Melatonin 3 mg PO HS 07/11/20 07/11/20 History Methyl Salicylate/Menthol 1 patch TOPICAL DAILY PRN 07/11/20 07/11/20 History [Salonpas Patch] Midodrine HCl [ProAmantine] 2.5 mg PO TID 07/11/20 07/11/20 History Allergies Allergy/AdvReac Type Severity Reaction Status Date / Time No Known Allergies Allergy Verified 07/11/20 21:44 Physical Exam Vitals: Vital Signs Temp Pulse Pulse Resp BP BP Pulse Ox 07/12/20 11:45 100 18 100/63 100 07/12/20 11:15 98 07/12/20 11:06 96 07/12/20 09:02 97.6 F 97 18 106/75 99 07/12/20 09:00 97 18 07/12/20 08:17 94 07/12/20 08:07 92 07/12/20 04:00 97.3 F L 98 21 106/73 100 07/12/20 00:00 97.2 F L 90 22 105/67 100 07/11/20 22:29 97.8 F 07/11/20 22:15 94 22 98/76 96 07/11/20 21:14 100 07/11/20 20:47 101 H 07/11/20 20:27 97.6 F 98 26 H 108/85 100 Intake and Output 07/11/20 07/12/20 07/12/20 22:59 06:59 14:59 Intake Total 240 Balance 240 Intake: Oral 240 Other: Voiding Method Bedside Commode Bedside Commode Urinal Urinal Self-Catheterization Self-Catheterization # Voids 1 2 Weight 77.564 kg 76.2 kg 76.2 kg GENERAL: The patient is alert and oriented x3, not in any acute distress. Well developed, well nourished. HEENT: Pupils are round and equally reacting to light. EOMI. No scleral icterus. No conjunctival pallor. Normocephalic, atraumatic. No pharyngeal erythema. No thyromegaly. CARDIOVASCULAR: S1 and S2 present. No murmurs, rubs, or gallops. PULMONARY: Chest is clear to auscultation, no wheezing or crackles. ABDOMEN: Soft, nontender, nondistended, normoactive bowel sounds. No palpable organomegaly. MUSCULOSKELETAL: No joint swelling or deformity. EXTREMITIES: No cyanosis, clubbing, or pedal edema. NEUROLOGICAL: Gross neurological examination did not reveal any focal deficits. SKIN: No rashes. No petechiae Results CBC & Chem 7: 07/12/20 06:41 07/12/20 06:41 Labs: Abnormal Lab Results - Last 24 Hours (Table) 07/11/20 07/11/20 07/11/20 Range/Units 20:33 20:33 20:33 WBC (3.8-10.6) k/uL RBC (4.30-5.90) m/uL Hgb 11.0 L (13.0-17.5) gm/dL Hct 36.9 L (39.0-53.0) % MCV 78.4 L (80.0-100.0) fL MCH 23.4 L (25.0-35.0) pg MCHC 29.9 L (31.0-37.0) g/dL RDW 18.2 H (11.5-15.5) % Lymphocytes # (1.0-4.8) k/uL PT 14.1 H (9.0-12.0) sec INR 1.4 H (<1.2) Potassium 5.5 H (3.5-5.1) mmol/L BUN 45 H (9-20) mg/dL Creatinine 2.37 H (0.66-1.25) mg/dL Glucose 114 H (74-99) mg/dL POC Glucose (mg/dL) (75-99) mg/dL Magnesium 1.2 L (1.6-2.3) mg/dL Alkaline Phosphatase 155 H (38-126) U/L 07/12/20 07/12/20 07/12/20 Range/Units 06:06 06:41 06:41 WBC 3.3 L (3.8-10.6) k/uL RBC 3.80 L (4.30-5.90) m/uL Hgb 9.1 L D (13.0-17.5) gm/dL Hct 29.6 L (39.0-53.0) % MCV 77.9 L (80.0-100.0) fL MCH 23.9 L (25.0-35.0) pg MCHC 30.6 L (31.0-37.0) g/dL RDW 18.0 H (11.5-15.5) % Lymphocytes # 0.3 L (1.0-4.8) k/uL PT (9.0-12.0) sec INR (<1.2) Potassium (3.5-5.1) mmol/L BUN 45 H (9-20) mg/dL Creatinine 2.19 H (0.66-1.25) mg/dL Glucose 169 H (74-99) mg/dL POC Glucose (mg/dL) 161 H (75-99) mg/dL Magnesium (1.6-2.3) mg/dL Alkaline Phosphatase (38-126) U/L 07/12/20 Range/Units 12:11 WBC (3.8-10.6) k/uL RBC (4.30-5.90) m/uL Hgb (13.0-17.5) gm/dL Hct (39.0-53.0) % MCV (80.0-100.0) fL MCH (25.0-35.0) pg MCHC (31.0-37.0) g/dL RDW (11.5-15.5) % Lymphocytes # (1.0-4.8) k/uL PT (9.0-12.0) sec INR (<1.2) Potassium (3.5-5.1) mmol/L BUN (9-20) mg/dL Creatinine (0.66-1.25) mg/dL Glucose (74-99) mg/dL POC Glucose (mg/dL) 259 H (75-99) mg/dL Magnesium (1.6-2.3) mg/dL Alkaline Phosphatase (38-126) U/L Thrombosis Risk Factor Assmnt - Choose All That Apply Any of the Below Risk Factors Present?: Yes Each Factor Represents 1 point: Abnormal pulmonary function (COPD), Obesity (BMI >25) Each Risk Factor Represents 2 Points: Age 61-74 years Thrombosis Risk Factor Assessment Total Risk Factor Score: 4 Thrombosis Risk Factor Assessment Level: Moderate Risk Assessment and Plan Assessment: -Acute on chronic systolic CHF with severely low ejection fraction 20-25% associated with bilateral pleural effusions , patient is getting close to end- stage heart failure -rightpleural effusion status post right thoracocentesis -recent history of non-STEMI,and history of coronary artery disease -Bicytopenia with leukopenia and anemia -Patient has multiple hospitalization, this is the 6th hospitalization of this year -Acute renal failure: Secondary to cardiorenal syndrome continue with Demadex -Generalized weakness can be related to acute renal failure, patient although does have chronic weakness -Urinary retention , self catheterize WITH straight cath 3-4 times a day , which could be done by the patient himself upon his request. 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 continue with diuretic.Follow-up culture results. continue with the brillinta.Follow-up recommendation by cardiology and pulmonary services. Labs and medication were reviewed.. Continue same treatment. Continue with symptomatic treatment. Resume home medication. Monitor lytes and vitals. DVT and GI prophylaxis. Further recommendations depends on the clinical course of the patient DVT prophylaxis: Subcutaneous heparin GI Prophylaxis: Pepcid PT/OT: Pending Prognosis is guarded
[2020-07-12 17:19] LABS: Glucose,Whole Blood 151 mg/dL (75-99)
[2020-07-12] MEDS: ATORVASTATIN 80 MG TAB PO SCH (19:51)
[2020-07-12 20:06] LABS: Glucose, BF Source Thoracentesis Fluid; Glucose, Body Fluid 169 mg/dL; LDH, Body Fluid Source Thoracentesis Fluid; Total Protein, Body Fluid 2000 mg/dL
[2020-07-12 20:07] LABS: Glucose,Whole Blood 164 mg/dL (75-99)
[2020-07-12] MEDS ORDERED: Magnesium Replacement Protocol 1 EACH MISC MISCELLANE PRN (20:30)
[2020-07-13 06:14] LABS: Glucose,Whole Blood 154 mg/dL (75-99)
[2020-07-13] MEDS: INSULIN ASPART (NovoLOG) 100 UNIT/ML VIAL SQ SCH ×4 (06:23→20:23)
[2020-07-13] MEDS: methylPREDNISolone SOD SUCCI 125 MG/2 ML VIAL IV SCH (06:24)
[2020-07-13 07:09] LABS: Anisocytosis Slight; Basophils % (A) 0 %; Eosinophils % (A) 0 %; HCT 26.1 % (39.0-53.0); Hypochromasia Marked; Lymphocytes # (A) 0.4 k/uL (1.0-4.8); Lymphocytes % (A) 8 %; MCH 22.4 pg (25.0-35.0); MCHC 29.3 g/dL (31.0-37.0); MCV 76.5 fL (80.0-100.0); Mean Platelet Volume 7.4; Microcytosis Slight; Monocytes # (A) 0.1 k/uL (0-1.0); Monocytes % (A) 2 %; Neutrophils # (A) 4.8 k/uL (1.3-7.7); Neutrophils % (A) 90 %; Platelet Count 214 k/uL (150-450); Poikilocytosis Slight; RBC 3.42 m/uL (4.30-5.90); RDW 17.8 % (11.5-15.5); WBC 5.3 k/uL (3.8-10.6)
[2020-07-13 07:16] LABS: HGB 7.6 gm/dL (13.0-17.5)
[2020-07-13] MEDS: ALBUTEROL NEBULIZED 2.5 MG/3 ML INHALATION SCH ×4 (07:39→19:12)
--- NOTE | 2020-07-13 08:11 | CDI ---
Documentation Clarification Form Date: 07/13/2020 07:58:09 AM From: Brooke Wyatt RN, CCDS Admit Date: 07/11/2020 09:23:00 PM Patient Name: Tho Chamorro Visit Number: [id number] ATTENTION: The Clinical Documentation Specialists (CDI) and [facility] Coding Staff appreciate your assistance in clarifying documentation. Please respond to the clarification below the line at the bottom and electronically sign. The CDI & [facility] Coding staff will review the response and follow-up if needed. Please note: Queries are made part of the Legal Health Record. If you have any questions, please contact the author of this message via ITS. Dr. Quarles E Sheet The patient presented with tachypnea and hypoxia. Please provide clinical significance. History/Risk Factors: systolic CHF, COPD, CKD stage 3, pulmonary HTN, chronic atrial fib, chronic anemia of CKD Tobacco use: current smoker Home oxygen: none documented Clinical Indicators: 07/11 ED Note: "Respiratory exam: Present: respiratory distress, wheezes, accessory muscle use, decreased breath sounds, prolonged expiratory. Acute respiratory failure" 07/03 Pulmonary Consult: "Respiratory: Reports dyspnea" 07/11 2027 Admission Vital signs: Temp 97.6, HR 98, RR 26, B/P 108/85, Spo2 100% 6L NC Pulse oximetry: 98-100% on 3-6 L NC 07/12 Cardiology: Lung/Breathing assessment: "LUNGS: diminished bilaterally more so to the right base. few scattered expiratory wheeze. mild accessory muscle usage, mild intercostal retractions." Treatment: Breathing tx: Duoneb Q 4 hrs PRN Solumedrol 125 mg IVP followed by tapering dose Lasix 40 mg IVP Q 12 hrs Continuous Pulse ox O2: 6L NC waned down to 3L NC In your professional opinion, can you please clarify if these findings signify one of the following conditions? Acute Hypoxic Respiratory Failure Acute Hypercapnic Respiratory failure Acute Respiratory Distress Other Diagnosis, please specify Unable to determine (Last Query Form Revision: June 2019) Acute Hypoxic Respiratory Failure, improving MTDD
[2020-07-13] MEDS: TICAGRELOR 90 MG TAB PO SCH ×2 (08:29→19:54)
[2020-07-13 09:31] LABS: African American GFR (CKD) 36.7 (60.0-200.0); Anion Gap 10.5 mmol/L (4.00-12.00); Calcium 8.9 mg/dL (8.7-10.3); Carbon Dioxide 28.5 mmol/L (21.6-31.8); Magnesium 1.3 mg/dL (1.5-2.4); Non-African American GFR(CKD) 31.7 (60.0-200.0); Potassium 4.2 mmol/L (3.5-5.5)
[2020-07-13] MEDS ORDERED: Magnesium Replacement Protocol 1 EACH MISC MISCELLANE PRN (09:43)
[2020-07-13] MEDS: TAMSULOSIN 0.4 MG CAP.ER.24H PO SCH (09:56)
[2020-07-13] MEDS: MIDODRINE 5 MG TAB PO SCH ×2 (09:56→17:11)
[2020-07-13] MEDS: MAGNESIUM SULFATE-D5W PMX 1 GM in DEXTROSE/WATER 1 100ML.BAG IVPB SCH ×3 (09:56→12:29)
[2020-07-13 09:57] LABS: Folate, Serum 15.7 ng/mL
[2020-07-13] MEDS: METOPROLOL SUCCINATE (ER) 50 MG TAB.ER.24H PO SCH (11:20)
[2020-07-13] MEDS: FUROSEMIDE 10 MG/ML 4 ML VIAL IV SCH ×2 (11:20→19:55)
[2020-07-13 11:59] LABS: Glucose,Whole Blood 184 mg/dL (75-99)
[2020-07-13] MEDS ORDERED: MIDODRINE 5 MG TAB PO SCH ×2 (12:00→16:00)
--- NOTE | 2020-07-13 12:09 | P.PN ---
Subjective Progress Note Date: 07/13/20 This is a 74-year-old male patient known to us from previous hospital admissions was coming into the hospital because of worsening shortness of breath. The patient had come out of his bathroom and he said at the edge of the bed and he got quite dyspneic. He came into the ED and he was found to have further enlargement in the right-sided pleural effusion and for that reason a pulmonary consultation was requested. The patient is known to have congestion heart failure with an ejection fraction of 20-25%. The patient is also known to have chronic better pleural effusion. His echocardiogram at shown an ejection fraction of 20-25% and the patient has mild to moderate MR. He is known to have CAD, chronic stage IV kidney disease, hypertension and hyperlipidemia and previous history of alcoholism. He has undergone previous successful stenting of the LAD. He was in the hospital approximately a month ago and after being treated he was released to [facility] on the [place] for further rehabilitation. The patient is quite debilitated. He has a mild case of COPD. He has chronic urinary retention any on the lower self-catheterization. During this current admission, his troponins were 0.02 [id number] RESPECTIVELY. ProBNP level was 19,200. White cell count is at 9.1 with a potassium level of 4.7. BUN is 45 with a creatinine of 2.19. On 07/13/2020, the patient is calm and comfortable. Underwent thoracentesis yesterday for a total of 1.5 L of fluid was aspirated from the right lung and the fluid was a transudate. This was expected as the patient has CHF. No complication. No pneumothorax. No respiratory distress. It was noted the patient is running a lower blood pressure. The patient is going to be started back on midodrine.. He remains on Lasix and the patient is a 40 mg IV push Lasix every 12 hours. He is on metoprolol 50 mg by mouth daily. He is on Lipitor. He has no respiratory distress. IV Solu Medrol be discontinued. Objective - Vital Signs Vital signs: Vital Signs Temp 97.6 F 07/13/20 08:30 Pulse 89 07/13/20 11:15 Resp 18 07/13/20 11:15 BP 86/50 07/13/20 11:15 Pulse Ox 97 07/13/20 11:15 Intake & Output 1007/13/20 07/13/20 18:59 06:59 18:59 Intake Total 760 240 Output Total 1200 120 Balance -440 -120 240 Weight 76.2 kg 74.5 kg Intake: Oral 760 240 Output: Urine 1200 120 Straight 900 Other: Voiding Method Bedside Commode Bedside Commode Bedside Commode Urinal Urinal Urinal Self-Catheterization Self-Catheterization Self-Catheterization # Voids 1 1 1 # Bowel Movements 1 - Exam Gen. appearance, comfortable, and the patient currently is in nonacute distress Head exam was generally normal. There was no scleral icterus or corneal arcus. Mucous membranes were moist. Neck was supple and without jugular venous distension, thyromegaly, or carotid bruits. Carotids were easily palpable bilaterally. There was no adenopathy. Lung sounds are diminished otherwise clear. No crackles or wheezes or rhonchi.. The patient improved breath sounds on the right lung base heart sounds are regular and there is no S3 gallop. No cervical murmurs appreciated. Abdominal exam revealed normal bowel sounds. The abdomen was soft, non-tender, and without masses, organomegaly, or appreciable enlargement of the abdominal aorta. Examination of the extremities revealed easily palpable radial, femoral and pedal pulses. There was no cyanosis, clubbing or edema. Examination of the skin revealed no evidence of significant rashes, suspicious appearing nevi or other concerning lesions. Neurologically, the patient is awake and alert and the patient does not have any focal neurological deficit. Cranial nerves are essentially intact. - Labs CBC & Chem 7: 07/13/20 06:48 07/13/20 07:49 Labs: Abnormal Lab Results - Last 24 Hours (Table) 07/12/20 07/12/20 07/12/20 Range/Units 12:11 17:18 20:05 RBC (4.30-5.90) m/uL Hgb (13.0-17.5) gm/dL Hct (39.0-53.0) % MCV (80.0-100.0) fL MCH (25.0-35.0) pg MCHC (31.0-37.0) g/dL RDW (11.5-15.5) % Lymphocytes # (1.0-4.8) k/uL BUN (9.0-27.0) mg/dL Creatinine (0.6-1.5) mg/dL Est GFR (CKD-EPI)AfAm (60.0-200.0) Est GFR (CKD-EPI)NonAf (60.0-200.0) Glucose (70-110) mg/dL POC Glucose (mg/dL) 259 H 151 H 164 H (75-99) mg/dL Magnesium (1.5-2.4) mg/dL Vitamin B12 (200.0-944.0) pg/mL 07/13/20 07/13/20 07/13/20 Range/Units 06:13 06:48 06:48 RBC 3.42 L (4.30-5.90) m/uL Hgb 7.6 L D (13.0-17.5) gm/dL Hct 26.1 L (39.0-53.0) % MCV 76.5 L (80.0-100.0) fL MCH 22.4 L (25.0-35.0) pg MCHC 29.3 L (31.0-37.0) g/dL RDW 17.8 H (11.5-15.5) % Lymphocytes # 0.4 L (1.0-4.8) k/uL BUN (9.0-27.0) mg/dL Creatinine (0.6-1.5) mg/dL Est GFR (CKD-EPI)AfAm (60.0-200.0) Est GFR (CKD-EPI)NonAf (60.0-200.0) Glucose (70-110) mg/dL POC Glucose (mg/dL) 154 H (75-99) mg/dL Magnesium (1.5-2.4) mg/dL Vitamin B12 1263.0 H (200.0-944.0) pg/mL 07/13/20 07/13/20 Range/Units 07:49 11:48 RBC (4.30-5.90) m/uL Hgb (13.0-17.5) gm/dL Hct (39.0-53.0) % MCV (80.0-100.0) fL MCH (25.0-35.0) pg MCHC (31.0-37.0) g/dL RDW (11.5-15.5) % Lymphocytes # (1.0-4.8) k/uL BUN 47.0 H (9.0-27.0) mg/dL Creatinine 2.0 H (0.6-1.5) mg/dL Est GFR (CKD-EPI)AfAm 36.7 L (60.0-200.0) Est GFR (CKD-EPI)NonAf 31.7 L (60.0-200.0) Glucose 137 H (70-110) mg/dL POC Glucose (mg/dL) 184 H (75-99) mg/dL Magnesium 1.3 L (1.5-2.4) mg/dL Vitamin B12 (200.0-944.0) pg/mL Microbiology - Last 24 Hours (Table) 07/12/20 10:00 Gram Stain - Preliminary Thoracic Fluid Body Fluid Culture - Preliminary Assessment and Plan Plan: 1 right-sided pleural effusion with interval increase in the size of the pleural effusion on the right with a small effusion on the left and the patient will benefit from a thoracentesis for diagnostic and therapeutic purposes. This is most likely CHF-related pleural effusion. The patient underwent thoracentesis yesterday with the evacuation of 1.5 L of pleural fluid that was transudate consistent with CHF. Fluid cytology still pending for now. 2 chronic kidney disease. Baseline renal function is consistent with stage IV kidney disease/failure, creatinine stable at 2.0. 3 CHF with an ejection fraction of 20-25% secondary pulmonary hypertension 4 coronary artery disease with extensive multivessel disease with previous stenting of the LAD. The patient was investigated and declined for bypass surgery back in 2016 due to comorbidities. 5 chronic atrial fibrillation, not on anticoagulants 6 COPD, currently mild and inactive and stable. 7 chronic urinary retention 8 BPH and chronic obstructive uropathy. The patient performs self- catheterization. Patient also has chronic kidney disease stage 3-4 disease 9 degenerative disc disease involving the lumbar spine 10 chronic cerebral atrophy and along with a component of dementia 11 hyperlipidemia 12 hypertension 13 history of recurrent falls and gait dysfunction secondary to comorbidities 14 chronic microcytic anemia Plan Pleural fluid is a transudate This is consistent with CHF Awaiting fluid cytology Continue diuretics with Lasix Add midodrine for hypotension Monitor renal function Discontinue the IV Solu Medrol optimize CHF and cardiology on the case
--- NOTE | 2020-07-13 12:20 | P.PN ---
Subjective This is a pleasant 74 years old male with multiple medical problems including coronary artery disease status post previous stent of the LAD, patient has declined bypass surgery in the past, chest pain, severe systolic heart failure with ejection fraction 20-25%, COPD, GERD, hyperlipidemia, hypertension, liver disease, osteoarthritis, chronic kidney disease stage 3, pulmonary hypertension, chronic atrial fibrillation, chronic anemia, COPD, chronic obstructive uropathy secondary to BPH and patient self catheterizes at home, generalized weakness and frequent falls, history of noncompliance and he signed himself AMA last month. patient presents this time because of dyspnea, with occasional cough and no chest pain patient was tachypneic and slightly hypoxic on emergency room, he was a 6 L oxygen saturating 100%. labs showing WBC of 3.3K, hemoglobin 9.1, platelets 251. Creatinine is elevated at 2.1, baseline creatinine is 1.3-1.8. Serial troponins are negative with 0.023 and proBNP is elevated 19 200. Liver enzymes not elevated. chest x-ray showing right pleural effusion and right lower lobe infiltrate emergency room patient resumed a breathing treatment and Solu-Medrol. also I asked the patient if he wants to talk to hospice team or palliative care team, he wanted to wait for now. He was asking to be given Xanax and [place] 07/13/2020 Patient is breathing quietly today, he is awake and alert and oriented 3. He has minimal cough. No chest pain or abdominal pain. He tolerates diet well is saturating 97% on 2 L Blood pressure was on the low normal side today, his Coreg was held, his home medication medodrain was restarted he wants something for sleep, patient is counseled against Xanax and [place] and he agrees however he agrees with melatonin There is a slight drop of his hemoglobin from 9.1 down to 7.6, creatinine is stable at 2.0 which is part of his chronic kidney disease. Low magnesium was replaced. Vitamin B12 is above 1000. Review of Systems CONSTITUTIONAL: No fever, no malaise, no fatigue. HEENT: No recent visual problems or hearing problems. Denied any sore throat. CARDIOVASCULAR: No orthopnea, PND, no palpitations, no syncope. PULMONARY: No shortness of breath, no cough, no hemoptysis. GASTROINTESTINAL: No diarrhea, no nausea, no vomiting, no abdominal pain. Normoactive bowel sounds. NEUROLOGICAL: No headaches, no weakness, no numbness. Active Medications Generic Name Dose Route Start Last Admin Trade Name Freq PRN Reason Stop Dose Admin Albuterol Sulfate 2.5 mg 07/12/20 08:00 07/13/20 10:53 Albuterol Nebulized 2.5 Mg/3 Ml INHALATION 2.5 mg RT-QID TI Administration Albuterol/Ipratropium 3 ml 07/11/20 21:23 Ipratropium-Albuterol 3 Ml Neb INHALATION RT-Q4H PRN Shortness Of Breath Or Wheezing Atorvastatin Calcium 80 mg 07/12/20 21:00 07/12/20 19:51 Atorvastatin 80 Mg Tab PO 80 mg HS TI Administration Furosemide 40 mg 07/11/20 21:30 07/13/20 11:20 Furosemide 10 Mg/Ml 4 Ml Vial IV Not Given Q12H TI Magnesium Sulfate/Dextrose 1 100 mls @ 100 mls/hr 07/13/20 10:00 07/13/20 11:16 gm/ IV Solution IVPB 07/13/20 12:59 100 mls/hr Q1H TI Administration Insulin Aspart 0 unit 07/12/20 07:30 07/13/20 06:23 Insulin Aspart (Novolog) 100 Unit/Ml Vial SQ 2 unit ACHS TI Administration Protocol Metoprolol Succinate 50 mg 07/12/20 09:00 07/13/20 11:20 Metoprolol Succinate (Er) 50 Mg Tab.Er.24h PO Not Given DAILY TI Midodrine 2.5 mg 07/13/20 10:00 07/13/20 09:56 Midodrine 5 Mg Tab PO 2.5 mg TID@0600,1200,1800 TI Administration Miscellaneous Information 1 each 07/13/20 09:43 Magnesium Replacement Protocol 1 Each Misc MISCELLANE DAILY PRN Per Protocol Protocol Tamsulosin HCl 0.4 mg 07/13/20 09:31 07/13/20 09:56 Tamsulosin 0.4 Mg Cap.Er.24h PO 0.4 mg DAILY TI Administration Ticagrelor 90 mg 07/12/20 09:00 07/13/20 08:29 Ticagrelor 90 Mg Tab PO 90 mg BID TI Administration Objective - Vital Signs Vital signs: Vital Signs Temp 97.6 F 07/13/20 08:30 Pulse 89 07/13/20 11:15 Resp 18 07/13/20 11:15 BP 86/50 07/13/20 11:15 Pulse Ox 97 07/13/20 11:15 Intake & Output 07/12/20 07/13/20 07/13/20 18:59 06:59 18:59 Intake Total 760 240 Output Total 1200 120 Balance -440 -120 240 Weight 76.2 kg 74.5 kg Intake: Oral 760 240 Output: Urine 1200 120 Straight 900 Other: Voiding Method Bedside Commode Bedside Commode Bedside Commode Urinal Urinal Urinal Self-Catheterization Self-Catheterization Self-Catheterization # Voids 1 1 1 # Bowel Movements 1 - Exam GENERAL: The patient is alert and oriented x3, not in any acute distress. Well developed, well nourished. HEENT: Pupils are round and equally reacting to light. EOMI. No scleral icterus. No conjunctival pallor. Normocephalic, atraumatic. No pharyngeal erythema. No thyromegaly. CARDIOVASCULAR: S1 and S2 present. No murmurs, rubs, or gallops. -PULMONARY: Chest is clear to auscultation, no wheezing . Bilateral basal crepitation ABDOMEN: Soft, nontender, nondistended, normoactive bowel sounds. No palpable organomegaly. MUSCULOSKELETAL: No joint swelling or deformity. -EXTREMITIES: No cyanosis, clubbing, . Bilateral patellar ligament edema NEUROLOGICAL: Gross neurological examination did not reveal any focal deficits. SKIN: No rashes. no petechiae. - Labs CBC & Chem 7: 07/13/20 06:48 07/13/20 07:49 Labs: Abnormal Lab Results - Last 24 Hours (Table) 07/12/20 07/12/20 07/13/20 Range/Units 17:18 20:05 06:13 RBC (4.30-5.90) m/uL Hgb (13.0-17.5) gm/dL Hct (39.0-53.0) % MCV (80.0-100.0) fL MCH (25.0-35.0) pg MCHC (31.0-37.0) g/dL RDW (11.5-15.5) % Lymphocytes # (1.0-4.8) k/uL BUN (9.0-27.0) mg/dL Creatinine (0.6-1.5) mg/dL Est GFR (CKD-EPI)AfAm (60.0-200.0) Est GFR (CKD-EPI)NonAf (60.0-200.0) Glucose (70-110) mg/dL POC Glucose (mg/dL) 151 H 164 H 154 H (75-99) mg/dL Magnesium (1.5-2.4) mg/dL Vitamin B12 (200.0-944.0) pg/mL 07/13/20 07/13/20 07/13/20 Range/Units 06:48 06:48 07:49 RBC 3.42 L (4.30-5.90) m/uL Hgb 7.6 L D (13.0-17.5) gm/dL Hct 26.1 L (39.0-53.0) % MCV 76.5 L (80.0-100.0) fL MCH 22.4 L (25.0-35.0) pg MCHC 29.3 L (31.0-37.0) g/dL RDW 17.8 H (11.5-15.5) % Lymphocytes # 0.4 L (1.0-4.8) k/uL BUN 47.0 H (9.0-27.0) mg/dL Creatinine 2.0 H (0.6-1.5) mg/dL Est GFR (CKD-EPI)AfAm 36.7 L (60.0-200.0) Est GFR (CKD-EPI)NonAf 31.7 L (60.0-200.0) Glucose 137 H (70-110) mg/dL POC Glucose (mg/dL) (75-99) mg/dL Magnesium 1.3 L (1.5-2.4) mg/dL Vitamin B12 1263.0 H (200.0-944.0) pg/mL 07/13/20 Range/Units 11:48 RBC (4.30-5.90) m/uL Hgb (13.0-17.5) gm/dL Hct (39.0-53.0) % MCV (80.0-100.0) fL MCH (25.0-35.0) pg MCHC (31.0-37.0) g/dL RDW (11.5-15.5) % Lymphocytes # (1.0-4.8) k/uL BUN (9.0-27.0) mg/dL Creatinine (0.6-1.5) mg/dL Est GFR (CKD-EPI)AfAm (60.0-200.0) Est GFR (CKD-EPI)NonAf (60.0-200.0) Glucose (70-110) mg/dL POC Glucose (mg/dL) 184 H (75-99) mg/dL Magnesium (1.5-2.4) mg/dL Vitamin B12 (200.0-944.0) pg/mL Microbiology - Last 24 Hours (Table) 07/12/20 10:00 Gram Stain - Preliminary Thoracic Fluid Body Fluid Culture - Preliminary Assessment and Plan Assessment: -Acute on chronic systolic CHF with severely low ejection fraction 20-25% associated with bilateral pleural effusions , patient is getting close to end- stage heart failure -rightpleural effusion status post right thoracocentesis -recent history of non-STEMI,and history of coronary artery disease -Bicytopenia with leukopenia and anemia -Patient has multiple hospitalization, this is the 6th hospitalization of this year -Acute renal failure: Secondary to cardiorenal syndrome continue with Demadex -Generalized weakness can be related to acute renal failure, patient although does have chronic weakness -Urinary retention , self catheterize WITH straight cath 3-4 times a day , which could be done by the patient himself upon his request. 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 continue with diuretic.Follow-up culture results. continue with the brillinta.Follow-up recommendation by cardiology and pulmonary services. keep monitoring hemoglobin.,Labs and medication were reviewed.. Continue same treatment. Continue with symptomatic treatment. Resume home medication. Mo nitor lytes and vitals. DVT and GI prophylaxis. Further recommendations depends on the clinical course of the patient DVT prophylaxis: Subcutaneous heparin GI Prophylaxis: Pepcid PT/OT: Pending Prognosis is guarded
--- NOTE | 2020-07-13 13:41 | P.PN ---
Subjective Progress Note Date: 07/13/20 History of present illness: This is a 74-year-old gentleman who follows with Dr. Diop in the office. He has a history of hypertension, hyperlipidemia, prior liver disease, history of EtOH abuse, COPD, GERD, history of coronary artery disease with prior successful stenting of the LAD, chronic kidney disease. he was recently hospitalized and discharged on July 03 at which time he was treated for acute on chronic systolic heart failure with known ejection fraction of 20-25% and bilateral pleural effusions. His echo performed in March showed an ejection fraction of 20-25% with mild to moderate mitral regurgitation. Patient presented to the emergency center due to symptoms of shortness of breath. patient states that he had come out of the bathroom sit on the edge of the bed and then got into bed. He states that he was either falling asleep or passing out and he had sudden onset of shortness of breath. EMS was called and he was brought into the hospital. Patient states he has to sleep with his head of the bed up. He has occasional cough with sputum production usually white in color. He denies having any fever or chills. He denies any lower extremity edema but states he feels his legs are 150 pounds. Patient also concerned that he has incontinence of urine. This is not new for patient. Patient was found to be afebrile, heart rate 98, blood pressure 108/85, pulse ox 100%on 6 L nasal cannula. WBC 5.4, hemoglobin 11. Sodium 140, potassium 5.5, chloride 102, CO2 27, BUN 45 and creatinine 2.37. Blood sugar 114. Magnesium 1.2.Troponin 0.028, 0.023, 0.023. ProBNP 19,200. EKG is sinus tachycardia with heart rate of 102 with PACs. Chest x-ray reveals right pleural effusion and right lower lobe infiltrate or increased compared to recent exam. No obvious heart failure. Repeat blood work this morning reveals WBC 3.3, hemoglobin 9.1. Potassium 4.7, BUN 45 and creatinine 2.19. Weight is down 1 kg. Patient states he has been urinating frequently during the night. 07/13/2020 Patient seen and examined. Patient believes he is feeling somewhat improved with his shortness breath. He denies any chest pain or pressure. Creatinine today is 2.0 which is improved from admission at 2.37. Hemoglobin noted to be decreasing from 11.0-7.6 today from admission. Blood pressure is noted to be low at 86/50 however he denies any lightheadedness. Physical examination: Gen: This is a 74-year-old male. He is resting in bed and appears to be slightly dyspneic at rest. VS: afebrile, heart rate 89, blood pressure 86/50, pulse ox 97% on 2 L nasal cannula. HEENT: Head is atraumatic, normocephalic. Pupils equal, round. Sclerae is anicteric. NECK: Supple. No JVD. No lymphadenopathy. No thyromegaly. LUNGS: diminished bilaterally more so to the right base. few scattered expiratory wheeze. mild accessory muscle usage, mild intercostal retractions. HEART: Regular rate and rhythm. No murmur. ABDOMEN: Soft. Bowel sounds are present. No masses. No tenderness. EXTREMITIES: No pedal edema. No calf tenderness.dorsalis pedis +2 bilaterally. NEUROLOGICAL: Patient is awake, alert and oriented x3. Cranial nerves 2 through 12 are grossly intact. Assessment: Acute on chronic systolic heart failure prior ejection fraction 20-25% Right pleural effusion status post thoracentesis of 1500 mL Paroxysmal atrial fibrillation Hypertension Hyperlipidemia Coronary artery disease with prior LAD stenting Chronic kidney failure COPD GERD Dementia Anemia with hemoglobin decreasing from 11.0-7.6 from this admission. Rule out GI bleed versus other Hypotension rule out blood loss versus dehydration Plan: Patient overall appears nearly euvolemic. He does have borderline low blood pressures with addition of decreasing hemoglobin from 11.0-7.6. Rule out GI bleed versus possible over diuresis. His creatinine however has been improving with diuresis. Monitor hemoglobin and monitor for any hematochezia or melena. Continue with Toprol 50 mg daily, Proventil into 90 mg twice a day and Lipitor 80 mg daily. Monitor blood pressures closely. If symptomatic and hypotensive given IV fluids and possible blood. Objective - Vital Signs Vital signs: Vital Signs Temp 97.6 F 07/13/20 08:30 Pulse 89 07/13/20 11:15 Resp 18 07/13/20 11:15 BP 86/50 07/13/20 11:15 Pulse Ox 97 07/13/20 11:15 Intake & Output 07/12/20 07/13/20 07/13/20 18:59 06:59 18:59 Intake Total 760 360 Output Total 1200 120 Balance -440 -120 360 Weight 76.2 kg 74.5 kg Intake: Oral 760 360 Output: Urine 1200 120 Straight 900 Other: Voiding Method Bedside Commode Bedside Commode Bedside Commode Urinal Urinal Urinal Self-Catheterization Self-Catheterization Self-Catheterization # Voids 1 1 0 # Bowel Movements 1 - Labs CBC & Chem 7: 07/13/20 06:48 07/13/20 07:49 Labs: Abnormal Lab Results - Last 24 Hours (Table) 07/12/20 07/12/20 07/13/20 Range/Units 17:18 20:05 06:13 RBC (4.30-5.90) m/uL Hgb (13.0-17.5) gm/dL Hct (39.0-53.0) % MCV (80.0-100.0) fL MCH (25.0-35.0) pg MCHC (31.0-37.0) g/dL RDW (11.5-15.5) % Lymphocytes # (1.0-4.8) k/uL BUN (9.0-27.0) mg/dL Creatinine (0.6-1.5) mg/dL Est GFR (CKD-EPI)AfAm (60.0-200.0) Est GFR (CKD-EPI)NonAf (60.0-200.0) Glucose (70-110) mg/dL POC Glucose (mg/dL) 151 H 164 H 154 H (75-99) mg/dL Magnesium (1.5-2.4) mg/dL Vitamin B12 (200.0-944.0) pg/mL 07/13/20 07/13/20 07/13/20 Range/Units 06:48 06:48 07:49 RBC 3.42 L (4.30-5.90) m/uL Hgb 7.6 L D (13.0-17.5) gm/dL Hct 26.1 L (39.0-53.0) % MCV 76.5 L (80.0-100.0) fL MCH 22.4 L (25.0-35.0) pg MCHC 29.3 L (31.0-37.0) g/dL RDW 17.8 H (11.5-15.5) % Lymphocytes # 0.4 L (1.0-4.8) k/uL BUN 47.0 H (9.0-27.0) mg/dL Creatinine 2.0 H (0.6-1.5) mg/dL Est GFR (CKD-EPI)AfAm 36.7 L (60.0-200.0) Est GFR (CKD-EPI)NonAf 31.7 L (60.0-200.0) Glucose 137 H (70-110) mg/dL POC Glucose (mg/dL) (75-99) mg/dL Magnesium 1.3 L (1.5-2.4) mg/dL Vitamin B12 1263.0 H (200.0-944.0) pg/mL 07/13/20 Range/Units 11:48 RBC (4.30-5.90) m/uL Hgb (13.0-17.5) gm/dL Hct (39.0-53.0) % MCV (80.0-100.0) fL MCH (25.0-35.0) pg MCHC (31.0-37.0) g/dL RDW (11.5-15.5) % Lymphocytes # (1.0-4.8) k/uL BUN (9.0-27.0) mg/dL Creatinine (0.6-1.5) mg/dL Est GFR (CKD-EPI)AfAm (60.0-200.0) Est GFR (CKD-EPI)NonAf (60.0-200.0) Glucose (70-110) mg/dL POC Glucose (mg/dL) 184 H (75-99) mg/dL Magnesium (1.5-2.4) mg/dL Vitamin B12 (200.0-944.0) pg/mL Microbiology - Last 24 Hours (Table) 07/12/20 10:00 Gram Stain - Preliminary Thoracic Fluid Body Fluid Culture - Preliminary
[2020-07-13 16:55] LABS: Glucose,Whole Blood 181 mg/dL (75-99)
[2020-07-13 18:41] LABS: Anisocytosis Slight; HCT 25.3 % (39.0-53.0); HGB 7.7 gm/dL (13.0-17.5); Hypochromasia Marked; MCH 23.8 pg (25.0-35.0); MCHC 30.5 g/dL (31.0-37.0); MCV 77.8 fL (80.0-100.0); Mean Platelet Volume 7.4; Microcytosis Slight; Platelet Count 210 k/uL (150-450); Poikilocytosis Slight; RBC 3.25 m/uL (4.30-5.90); RDW 17.8 % (11.5-15.5); WBC 6.8 k/uL (3.8-10.6)
[2020-07-13] MEDS: ATORVASTATIN 80 MG TAB PO SCH (19:55)
[2020-07-13] MEDS: MELATONIN 3 MG TABLET PO SCH (19:55)
[2020-07-13 20:11] LABS: Glucose,Whole Blood 159 mg/dL (75-99)
[2020-07-14 06:10] LABS: Glucose,Whole Blood 126 mg/dL (75-99)
[2020-07-14] MEDS: INSULIN ASPART (NovoLOG) 100 UNIT/ML VIAL SQ SCH ×4 (06:43→20:16)
[2020-07-14] MEDS: MIDODRINE 5 MG TAB PO SCH ×3 (06:47→17:50)
[2020-07-14 07:34] LABS: Magnesium 1.9 mg/dL (1.6-2.3)
[2020-07-14] MEDS: ALBUTEROL NEBULIZED 2.5 MG/3 ML INHALATION SCH ×4 (07:45→19:30)
[2020-07-14 08:02] LABS: Anisocytosis Slight; Basophils % (A) 0 %; Eosinophils % (A) 0 %; HGB 7.6 gm/dL (13.0-17.5); Hypochromasia Marked; Lymphocytes # (A) 0.3 k/uL (1.0-4.8); Lymphocytes % (A) 5 %; MCH 22.2 pg (25.0-35.0); MCHC 29.3 g/dL (31.0-37.0); MCV 75.8 fL (80.0-100.0); Mean Platelet Volume 7.8; Microcytosis Slight; Monocytes # (A) 0.3 k/uL (0-1.0); Monocytes % (A) 4 %; Neutrophils # (A) 6.8 k/uL (1.3-7.7); Neutrophils % (A) 91 %; Platelet Count 199 k/uL (150-450); Poikilocytosis Slight; RBC 3.43 m/uL (4.30-5.90); RDW 17.5 % (11.5-15.5); WBC 7.5 k/uL (3.8-10.6)
[2020-07-14 09:00] LABS: RBC Fragments Present
[2020-07-14] MEDS ORDERED: TAMSULOSIN 0.4 MG CAP.ER.24H PO SCH (09:00)
[2020-07-14] MEDS: FUROSEMIDE 10 MG/ML 4 ML VIAL IV SCH (10:30)
[2020-07-14] MEDS: METOPROLOL SUCCINATE (ER) 50 MG TAB.ER.24H PO SCH (10:30)
[2020-07-14] MEDS: TAMSULOSIN 0.4 MG CAP.ER.24H PO SCH (10:30)
[2020-07-14] MEDS: ASPIRIN 81 MG PO SCH (10:30)
[2020-07-14] MEDS: TICAGRELOR 90 MG TAB PO SCH (10:34)
--- NOTE | 2020-07-14 10:53 | P.PN ---
Subjective This is a pleasant 74-year old male past medical history significant for ischemic cardiomyopahty, chronic systolic heart failure, coronary artery disease s/p PCI, history of hypotension, dyslipidemia, history of ETOh abuse, former nicotine dependence and bilateral pleural effusions. He follows in the office with Dr. Hou. He is currently being treated for heart failure and there is some question of bleeding. His hgb has dropped from 11 on admission down to 7.6 today. He denies black or bloody stools since admission. His breathing has improved on current regimen. He states he feels dyspneic with exertion to the bathroom but not at rest. He denies chest pain, dizziness or palpitations. Blood pressure 89/54 heart rate 90 afebrile maintaining oxygen saturation on nasal cannula. GENERAL: Well-appearing, well-nourished and in no acute distress. NECK: Supple without JVD or thyromegaly. LUNGS: Scattered rhonchi, diminished bilaterally. No wheezes or rales. Respiration equal and unlabored. HEART: Regular rate and rhythm without murmurs, rubs or gallops. S1 and S2 heard. EXTREMITIES: Normal range of motion, no edema. No clubbing or cyanosis. Peripheral pulses intact. ASSESSMENT Acute on chronic systolic heart failure Pleural effusion status post thoracentesis Paroxysmal atrial fibrillation on long-term anticoagulation secondary to history of falls and alcohol use Coronary artery disease status post PCI to the LAD in 2015 Hypertension Dyslipidemia COPD Anemia Hypotension, chronic PLAN Transition to oral diuretics. Sometime in November his aspirin was discontinued for unknown reason. We recommend resuming aspirin 81 mg daily and discontinuing brilinta as his most recent PCI was 2015. Ongoing evaluation by the primary team of drop in hemoglobin. Nurse Practitioner note has been reviewed, I agree with a documented findings and plan of care. Patient was seen and examined. Objective - Vital Signs Vital signs: Vital Signs Temp 98.1 F 07/14/20 00:00 Pulse 90 07/14/20 07:57 Resp 18 07/14/20 04:00 BP 89/54 07/14/20 04:00 Pulse Ox 98 07/14/20 07:45 Intake & Output 07/13/20 07/14/20 07/14/20 18:59 06:59 18:59 Intake Total 600 100 240 Output Total 600 600 250 Balance 0 -500 -10 Weight 74.8 kg Intake: Oral 600 100 240 Output: Urine 600 600 250 Other: Voiding Method Bedside Commode Bedside Commode Urinal Self-Catheterization Self-Catheterization # Voids 0 1 # Bowel Movements 1 2 - Labs CBC & Chem 7: 07/14/20 06:45 07/14/20 06:45 Labs: Abnormal Lab Results - Last 24 Hours (Table) 07/13/20 07/13/20 07/13/20 Range/Units 11:48 16:51 18:30 RBC 3.25 L (4.30-5.90) m/uL Hgb 7.7 L (13.0-17.5) gm/dL Hct 25.3 L (39.0-53.0) % MCV 77.8 L (80.0-100.0) fL MCH 23.8 L (25.0-35.0) pg MCHC 30.5 L (31.0-37.0) g/dL RDW 17.8 H (11.5-15.5) % Lymphocytes # (1.0-4.8) k/uL BUN (9-20) mg/dL Creatinine (0.66-1.25) mg/dL Glucose (74-99) mg/dL POC Glucose (mg/dL) 184 H 181 H (75-99) mg/dL 07/13/20 07/14/20 07/14/20 Range/Units 20:09 06:09 06:45 RBC 3.43 L (4.30-5.90) m/uL Hgb 7.6 L (13.0-17.5) gm/dL Hct 26.0 L (39.0-53.0) % MCV 75.8 L (80.0-100.0) fL MCH 22.2 L (25.0-35.0) pg MCHC 29.3 L (31.0-37.0) g/dL RDW 17.5 H (11.5-15.5) % Lymphocytes # 0.3 L (1.0-4.8) k/uL BUN (9-20) mg/dL Creatinine (0.66-1.25) mg/dL Glucose (74-99) mg/dL POC Glucose (mg/dL) 159 H 126 H (75-99) mg/dL 07/14/20 Range/Units 06:45 RBC (4.30-5.90) m/uL Hgb (13.0-17.5) gm/dL Hct (39.0-53.0) % MCV (80.0-100.0) fL MCH (25.0-35.0) pg MCHC (31.0-37.0) g/dL RDW (11.5-15.5) % Lymphocytes # (1.0-4.8) k/uL BUN 49 H (9-20) mg/dL Creatinine 1.95 H (0.66-1.25) mg/dL Glucose 120 H (74-99) mg/dL POC Glucose (mg/dL) (75-99) mg/dL Microbiology - Last 24 Hours (Table) 07/12/20 10:00 Gram Stain - Preliminary Thoracic Fluid Body Fluid Culture - Preliminary
[2020-07-14 12:07] LABS: Glucose,Whole Blood 111 mg/dL (75-99)
--- NOTE | 2020-07-14 13:13 | P.PN ---
Subjective This is a pleasant 74 years old male with multiple medical problems including coronary artery disease status post previous stent of the LAD, patient has declined bypass surgery in the past, chest pain, severe systolic heart failure with ejection fraction 20-25%, COPD, GERD, hyperlipidemia, hypertension, liver disease, osteoarthritis, chronic kidney disease stage 3, pulmonary hypertension, chronic atrial fibrillation, chronic anemia, COPD, chronic obstructive uropathy secondary to BPH and patient self catheterizes at home, generalized weakness and frequent falls, history of noncompliance and he signed himself AMA last month. patient presents this time because of dyspnea, with occasional cough and no chest pain patient was tachypneic and slightly hypoxic on emergency room, he was a 6 L oxygen saturating 100%. labs showing WBC of 3.3K, hemoglobin 9.1, platelets 251. Creatinine is elevated at 2.1, baseline creatinine is 1.3-1.8. Serial troponins are negative with 0.023 and proBNP is elevated 19 200. Liver enzymes not elevated. chest x-ray showing right pleural effusion and right lower lobe infiltrate emergency room patient resumed a breathing treatment and Solu-Medrol. also I asked the patient if he wants to talk to hospice team or palliative care team, he wanted to wait for now. He was asking to be given Xanax and [place] 07/13/2020 Patient is breathing quietly today, he is awake and alert and oriented 3. He has minimal cough. No chest pain or abdominal pain. He tolerates diet well is saturating 97% on 2 L Blood pressure was on the low normal side today, his Coreg was held, his home medication medodrain was restarted he wants something for sleep, patient is counseled against Xanax and [place] and he agrees however he agrees with melatonin There is a slight drop of his hemoglobin from 9.1 down to 7.6, creatinine is stable at 2.0 which is part of his chronic kidney disease. Low magnesium was replaced. Vitamin B12 is above 1000. 07/14/2020 Patient is a breathing quietly and clinically looks his stable with no dizziness or dyspnea or chest pain. His blood pressure still low normal this morning anemia workup is requested, iron study and BLOOD in the stool are pending. Hemoglobin is stable at 7.6 which is dropped from 11.0 and 10.1 upon admission. Creatinine improving to 1.9 Pleural fluid culture and sensitivity Showing no growth. Prognosis remains guarded Objective - Vital Signs Vital signs: Vital Signs Temp 97.7 F 07/14/20 09:45 Pulse 91 07/14/20 11:11 Resp 16 07/14/20 09:45 BP 88/55 07/14/20 09:45 Pulse Ox 95 07/14/20 09:45 Intake & Output 07/13/20 07/14/20 07/14/20 18:59 06:59 18:59 Intake Total 600 100 240 Output Total 600 600 250 Balance 0 -500 -10 Weight 74.8 kg Intake: Oral 600 100 240 Output: Urine 600 600 250 Other: Voiding Method Bedside Commode Bedside Commode Bedside Commode Urinal Self-Catheterization Self-Catheterization Self-Catheterization # Voids 0 1 # Bowel Movements 1 2 - Exam GENERAL: The patient is alert and oriented x3, not in any acute distress. Well developed, well nourished. HEENT: Pupils are round and equally reacting to light. EOMI. No scleral icterus. No conjunctival pallor. Normocephalic, atraumatic. No pharyngeal erythema. No thyromegaly. CARDIOVASCULAR: S1 and S2 present. No murmurs, rubs, or gallops. -PULMONARY: Chest is clear to auscultation, no wheezing . Bilateral basal crepitation ABDOMEN: Soft, nontender, nondistended, normoactive bowel sounds. No palpable organomegaly. MUSCULOSKELETAL: No joint swelling or deformity. -EXTREMITIES: No cyanosis, clubbing, . Bilateral patellar ligament edema NEUROLOGICAL: Gross neurological examination did not reveal any focal deficits. SKIN: No rashes. no petechiae. - Labs CBC & Chem 7: 07/14/20 06:45 07/14/20 06:45 Labs: Abnormal Lab Results - Last 24 Hours (Table) 07/13/20 07/13/20 07/13/20 Range/Units 16:51 18:30 20:09 RBC 3.25 L (4.30-5.90) m/uL Hgb 7.7 L (13.0-17.5) gm/dL Hct 25.3 L (39.0-53.0) % MCV 77.8 L (80.0-100.0) fL MCH 23.8 L (25.0-35.0) pg MCHC 30.5 L (31.0-37.0) g/dL RDW 17.8 H (11.5-15.5) % Lymphocytes # (1.0-4.8) k/uL BUN (9-20) mg/dL Creatinine (0.66-1.25) mg/dL Glucose (74-99) mg/dL POC Glucose (mg/dL) 181 H 159 H (75-99) mg/dL 07/14/20 07/14/20 07/14/20 Range/Units 06:09 06:45 06:45 RBC 3.43 L (4.30-5.90) m/uL Hgb 7.6 L (13.0-17.5) gm/dL Hct 26.0 L (39.0-53.0) % MCV 75.8 L (80.0-100.0) fL MCH 22.2 L (25.0-35.0) pg MCHC 29.3 L (31.0-37.0) g/dL RDW 17.5 H (11.5-15.5) % Lymphocytes # 0.3 L (1.0-4.8) k/uL BUN 49 H (9-20) mg/dL Creatinine 1.95 H (0.66-1.25) mg/dL Glucose 120 H (74-99) mg/dL POC Glucose (mg/dL) 126 H (75-99) mg/dL 07/14/20 Range/Units 12:03 RBC (4.30-5.90) m/uL Hgb (13.0-17.5) gm/dL Hct (39.0-53.0) % MCV (80.0-100.0) fL MCH (25.0-35.0) pg MCHC (31.0-37.0) g/dL RDW (11.5-15.5) % Lymphocytes # (1.0-4.8) k/uL BUN (9-20) mg/dL Creatinine (0.66-1.25) mg/dL Glucose (74-99) mg/dL POC Glucose (mg/dL) 111 H (75-99) mg/dL Microbiology - Last 24 Hours (Table) 07/12/20 10:00 Gram Stain - Preliminary Thoracic Fluid Body Fluid Culture - Preliminary Assessment and Plan Assessment: -Acute on chronic systolic CHF with severely low ejection fraction 20-25% associated with bilateral pleural effusions , patient is getting close to end- stage heart failure -rightpleural effusion status post right thoracocentesis -recent history of non-STEMI,and history of coronary artery disease -Bicytopenia with leukopenia and anemia -Patient has multiple hospitalization, this is the 6th hospitalization of this year -Acute renal failure: Secondary to cardiorenal syndrome continue with Demadex -Generalized weakness can be related to acute renal failure, patient although does have chronic weakness -Urinary retention , self catheterize WITH straight cath 3-4 times a day , which could be done by the patient himself upon his request. 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 continue with diuretic.Follow-up culture results. continue with the brillinta.Follow-up recommendation by cardiology and pulmonary services. keep monitoring hemoglobin.,Labs and medication were reviewed.. Continue same treatment. Continue with symptomatic treatment. Resume home medication. Monitor lytes and vitals. DVT and GI prophylaxis. Further recommendations depends on the clinical course of the patient DVT prophylaxis: Subcutaneous heparin GI Prophylaxis: Pepcid PT/OT: Pending Prognosis is guarded
--- NOTE | 2020-07-14 14:12 | P.PN ---
Subjective Progress Note Date: 07/14/20 Principal diagnosis: Right-sided pleural effusion, status post right thoracentesis likely related to CHF This is a 74-year-old male patient known to us from previous hospital admissions was coming into the hospital because of worsening shortness of breath. The patient had come out of his bathroom and he said at the edge of the bed and he got quite dyspneic. He came into the ED and he was found to have further enlargement in the right-sided pleural effusion and for that reason a pulmonary consultation was requested. The patient is known to have congestion heart failure with an ejection fraction of 20-25%. The patient is also known to have chronic better pleural effusion. His echocardiogram at shown an ejection fraction of 20-25% and the patient has mild to moderate MR. He is known to have CAD, chronic stage IV kidney disease, hypertension and hyperlipidemia and previous history of alcoholism. He has undergone previous successful stenting of the LAD. He was in the hospital approximately a month ago and after being treated he was released to [facility] on the [place] for further rehabilitation. The patient is quite debilitated. He has a mild case of COPD. He has chronic urinary retention any on the lower self-catheterization. During this current admission, his troponins were 0.02 [id number] RESPECTIVELY. ProBNP level was 19,200. White cell count is at 9.1 with a potassium level of 4.7. BUN is 45 with a creatinine of 2.19. On 07/13/2020, the patient is calm and comfortable. Underwent thoracentesis yesterday for a total of 1.5 L of fluid was aspirated from the right lung and the fluid was a transudate. This was expected as the patient has CHF. No complication. No pneumothorax. No respiratory distress. It was noted the patient is running a lower blood pressure. The patient is going to be started back on midodrine.. He remains on Lasix and the patient is a 40 mg IV push Lasix every 12 hours. He is on metoprolol 50 mg by mouth daily. He is on Lipitor. He has no respiratory distress. IV Solu Medrol be discontinued. On 07/14/2020 patient seen in follow-up on selective care unit, he is resting comfortably in bed, he states his breathing is comfortable, he is currently on 3 L of oxygen his pulse ox 95%, blood pressure is slightly low side, 88/55 this morning, with a mean of 66, afebrile, no complaints of chest pain, no wheezing, lung sounds reveal diminished breath sounds at the bases, no significant rhonchi, no cough or congestion. Patient had right-sided thoracentesis on 07/12/2020 would removal of 1.7 L of pleural fluid, cytology still pending, cultures are pending, reveal no growth thus far, pleural fluid analysis revealed transudative fluid. Patient continues on Midrin 2-1/2 mg 3 times daily, he is on daily dose of oral Lasix, cardiology is following. Objective - Vital Signs Vital signs: Vital Signs Temp 97.7 F 07/14/20 09:45 Pulse 91 07/14/20 11:11 Resp 16 07/14/20 09:45 BP 88/55 07/14/20 09:45 Pulse Ox 95 07/14/20 09:45 Intake & Output 07/13/20 07/14/20 07/14/20 18:59 06:59 18:59 Intake Total 600 100 500 Output Total 600 600 250 Balance 0 -500 250 Weight 74.8 kg Intake: Oral 600 100 500 Output: Urine 600 600 250 Other: Voiding Method Bedside Commode Bedside Commode Bedside Commode Urinal Self-Catheterization Self-Catheterization Self-Catheterization # Voids 0 1 # Bowel Movements 1 2 - Exam GENERAL EXAM: Alert, very pleasant, 74-year-old white male on 3 L of oxygen with a pulse ox of 95% comfortable in no apparent distress. HEAD: Normocephalic/atraumatic. EYES: Normal reaction of pupils, equal size. Conjunctiva pink, sclera white. NOSE: Clear with pink turbinates. THROAT: No erythema or exudates. NECK: No masses, no JVD, no thyroid enlargement, no adenopathy. CHEST: No chest wall deformity. Symmetrical expansion. LUNGS: Equal air entry with no crackles, wheeze, rhonchi or dullness. CVS: Regular rate and rhythm, normal S1 and S2, no gallops, no murmurs, no rubs ABDOMEN: Soft, nontender. No hepatosplenomegaly, normal bowel sounds, no guarding or rigidity. EXTREMITIES: No clubbing, no edema, no cyanosis, 2+ pulses and upper and lower extremities. MUSCULOSKELETAL: Muscle strength and tone normal. SPINE: No scoliosis or deformity SKIN: No rashes CENTRAL NERVOUS SYSTEM: Alert and oriented -3. No focal deficits, tone is normal in all 4 extremities. PSYCHIATRIC: Alert and oriented -3. Appropriate affect. Intact judgment and insight. - Labs CBC & Chem 7: 07/14/20 06:45 07/14/20 06:45 Labs: Abnormal Lab Results - Last 24 Hours (Table) 07/13/20 07/13/20 07/13/20 Range/Units 16:51 18:30 20:09 RBC 3.25 L (4.30-5.90) m/uL Hgb 7.7 L (13.0-17.5) gm/dL Hct 25.3 L (39.0-53.0) % MCV 77.8 L (80.0-100.0) fL MCH 23.8 L (25.0-35.0) pg MCHC 30.5 L (31.0-37.0) g/dL RDW 17.8 H (11.5-15.5) % Lymphocytes # (1.0-4.8) k/uL BUN (9-20) mg/dL Creatinine (0.66-1.25) mg/dL Glucose (74-99) mg/dL POC Glucose (mg/dL) 181 H 159 H (75-99) mg/dL 07/14/20 07/14/20 07/14/20 Range/Units 06:09 06:45 06:45 RBC 3.43 L (4.30-5.90) m/uL Hgb 7.6 L (13.0-17.5) gm/dL Hct 26.0 L (39.0-53.0) % MCV 75.8 L (80.0-100.0) fL MCH 22.2 L (25.0-35.0) pg MCHC 29.3 L (31.0-37.0) g/dL RDW 17.5 H (11.5-15.5) % Lymphocytes # 0.3 L (1.0-4.8) k/uL BUN 49 H (9-20) mg/dL Creatinine 1.95 H (0.66-1.25) mg/dL Glucose 120 H (74-99) mg/dL POC Glucose (mg/dL) 126 H (75-99) mg/dL 07/14/20 Range/Units 12:03 RBC (4.30-5.90) m/uL Hgb (13.0-17.5) gm/dL Hct (39.0-53.0) % MCV (80.0-100.0) fL MCH (25.0-35.0) pg MCHC (31.0-37.0) g/dL RDW (11.5-15.5) % Lymphocytes # (1.0-4.8) k/uL BUN (9-20) mg/dL Creatinine (0.66-1.25) mg/dL Glucose (74-99) mg/dL POC Glucose (mg/dL) 111 H (75-99) mg/dL Microbiology - Last 24 Hours (Table) 07/12/20 10:00 Gram Stain - Preliminary Thoracic Fluid Body Fluid Culture - Preliminary Assessment and Plan Plan: Assessment: 1 right-sided pleural effusion with interval increase in the size of the pleural effusion on the right with a small effusion on the left and the patient will benefit from a thoracentesis for diagnostic and therapeutic purposes. This is most likely CHF-related pleural effusion. The patient underwent thoracentesis yesterday with the evacuation of 1.5 L of pleural fluid that was transudate consistent with CHF. Fluid cytology still pending for now. 2 chronic kidney disease. Baseline renal function is consistent with stage IV kidney disease/failure, creatinine stable at 2.0. 3 CHF with an ejection fraction of 20-25% secondary pulmonary hypertension 4 coronary artery disease with extensive multivessel disease with previous stenting of the LAD. The patient was investigated and declined for bypass surgery back in 2016 due to comorbidities. 5 chronic atrial fibrillation, not on anticoagulants 6 COPD, currently mild and inactive and stable. 7 chronic urinary retention 8 BPH and chronic obstructive uropathy. The patient performs self- catheterization. Patient also has chronic kidney disease stage 3-4 disease 9 degenerative disc disease involving the lumbar spine 10 chronic cerebral atrophy and along with a component of dementia 11 hyperlipidemia 12 hypertension 13 history of recurrent falls and gait dysfunction secondary to comorbidities 14 chronic microcytic anemia Plan: Continue current medical treatment, continue oral dose of Lasix, we'll defer to cardiology for diuretic management, patient is status post right lung thoracentesis, and the fluid was transudate of in nature consistent with chronic congestive heart failure. Breathing is stable, comfortable, no chest pain. Renal profile is relatively stable, no acute events overnight. From pulmonary perspective patient could probably be considered for discharge to subacute rehab once cleared by cardiology I performed a history & physical examination of the patient and discussed their management with my nurse practitioner, Brittany Hester. I reviewed the nurse practitioner's note and agree with the documented findings and plan of care. Lung sounds are positive for diminished breath sounds. The findings and the impression was discussed with the patient. I attest to the documentation by the nurse practitioner. Time with Patient: Less than 30
[2020-07-14 15:30] LABS: Ferritin 34.3 ng/mL (22.0-322.0)
[2020-07-14 15:35] LABS: % Iron Saturation 2.27 (15.00-50.00)
[2020-07-14 16:58] LABS: Glucose,Whole Blood 120 mg/dL (75-99)
[2020-07-14 19:31] VITALS: RESP 18
[2020-07-14 20:16] LABS: Glucose,Whole Blood 126 mg/dL (75-99)
[2020-07-14] MEDS: ATORVASTATIN 80 MG TAB PO SCH (20:17)
[2020-07-14] MEDS: MELATONIN 3 MG TABLET PO SCH (20:17)
[2020-07-14] MEDS ORDERED: ACETAMINOPHEN TAB 325 MG TAB PO PRN (20:47)
[2020-07-15] MEDS: MIDODRINE 5 MG TAB PO SCH ×2 (05:46→10:45)
[2020-07-15 07:48] LABS: Anisocytosis Slight; Basophils % (A) 0 %; Eosinophils # (A) 0.1 k/uL (0-0.7); Eosinophils % (A) 1 %; HCT 29.7 % (39.0-53.0); Hypochromasia Marked; Lymphocytes # (A) 1.9 k/uL (1.0-4.8); Lymphocytes % (A) 24 %; MCH 23.6 pg (25.0-35.0); MCHC 30.3 g/dL (31.0-37.0); MCV 77.8 fL (80.0-100.0); Mean Platelet Volume 8.3; Microcytosis Slight; Monocytes # (A) 0.4 k/uL (0-1.0); Monocytes % (A) 5 %; Neutrophils # (A) 5.3 k/uL (1.3-7.7); Neutrophils % (A) 68 %; Platelet Count 236 k/uL (150-450); Poikilocytosis Slight; RBC 3.81 m/uL (4.30-5.90); RDW 17.8 % (11.5-15.5); WBC 7.8 k/uL (3.8-10.6)
[2020-07-15] MEDS: ASPIRIN 81 MG PO SCH (07:55)
[2020-07-15 07:57] LABS: Calcium 9.2 mg/dL (8.4-10.2); Potassium 4.1 mmol/L (3.5-5.1)
[2020-07-15] MEDS ORDERED: FUROSEMIDE 40 MG TAB PO SCH (09:00)
[2020-07-15] MEDS: ALBUTEROL NEBULIZED 2.5 MG/3 ML INHALATION SCH ×2 (09:22→12:02)
--- NOTE | 2020-07-15 10:03 | P.PN ---
Subjective This is a pleasant 74-year old male past medical history significant for ischemic cardiomyopahty, chronic systolic heart failure, coronary artery disease s/p PCI, history of hypotension, dyslipidemia, history of ETOh abuse, former nicotine dependence and bilateral pleural effusions. He follows in the office with Dr. Hou. He is seen and examined laying flat resting comfortably in bed in no acute distress. He states he had 2 nose bleeds last night that improved when hydration was added to his oxygen. He has chronic ongoing exertio nal dyspnea that has not worsened. Denies chest pain, dizziness or palpitations. Blood pressure 77/48 heart rate 82 afebrile maintaining oxygen saturation on nasal cannula. Laboratory data reviewed, WBC 7.8, hemoglobin 9, platelets 236, sodium 137, potassium 4.1, creatinine 2.0. Telemetry tracings indicate non- sustained wide complex tachycardia. The patient has been considered for an ICD in the past however he has poor follow up in the office with 15 no show appointments and therefore has not had the proper work-up. GENERAL: Well-appearing, well-nourished and in no acute distress. NECK: Supple without JVD or thyromegaly. LUNGS: Clear to auscultations bilaterally. No rales, wheezes or rhonchi. Respiration equal and unlabored. HEART: Regular rate and rhythm without murmurs, rubs or gallops. S1 and S2 heard. EXTREMITIES: Normal range of motion, no edema. No clubbing or cyanosis. Periph eral pulses intact. ASSESSMENT Acute on chronic systolic heart failure Pleural effusion status post thoracentesis Paroxysmal atrial fibrillation on long-term anticoagulation secondary to history of falls and alcohol use Coronary artery disease status post PCI to the LAD in 2016 Hypertension Dyslipidemia COPD Anemia Hypotension, chronic PLAN Blood pressure is low, recommend manual cuff pressure after he is sitting for 5 minutes. Advised him to rise slowly and take his midodrine 30 minutes prior to getting up out of bed. He is currently asymptomatic at that blood pressure. Due to hypotension he is not a candidate for DARION/ARB therapy for his cardiomyopathy. Lengthy discussion with the patient regarding strict outpatient follow up for further cardiac testing and ICD consideration. The risk of sudden cardiac has been explained to him and he states he will show up in the office this time. Information on resighini on the aging provided for transportation to medical appointments. Prognosis guarded. Follow up appointment with Dr. Hou in the office. Nurse Practitioner note has been reviewed, I agree with a documented findings and plan of care. Patient was seen and examined. Objective - Vital Signs Vital signs: Vital Signs Temp 98 F 07/15/20 07:49 Pulse 82 07/15/20 07:49 Resp 18 07/15/20 08:00 BP 77/48 07/15/20 07:49 Pulse Ox 98 07/15/20 07:49 Intake & Output 07/14/20 07/15/20 07/15/20 18:59 06:59 18:59 Intake Total 850 240 Output Total 550 1760 Balance 300 -1760 240 Weight 74.1 kg Intake: Oral 850 240 Output: Urine 550 1360 Stool 400 Other: Voiding Method Bedside Commode Bedside Commode Bedside Commode Self-Catheterization Self-Catheterization Self-Catheterization # Voids 1 # Bowel Movements 2 1 - Labs CBC & Chem 7: 07/15/20 07:14 07/15/20 07:14 Labs: Abnormal Lab Results - Last 24 Hours (Table) 07/14/20 07/14/20 07/14/20 Range/Units 06:45 12:03 16:49 RBC (4.30-5.90) m/uL Hgb (13.0-17.5) gm/dL Hct (39.0-53.0) % MCV (80.0-100.0) fL MCH (25.0-35.0) pg MCHC (31.0-37.0) g/dL RDW (11.5-15.5) % Chloride (98-107) mmol/L BUN (9-20) mg/dL Creatinine (0.66-1.25) mg/dL Glucose (74-99) mg/dL POC Glucose (mg/dL) 111 H 120 H (75-99) mg/dL Iron 10 L (65-175) ug/dL % Saturation 2.27 L (15.00-50.00) 07/14/20 07/15/20 07/15/20 Range/Units 20:15 07:14 07:14 RBC 3.81 L (4.30-5.90) m/uL Hgb 9.0 L (13.0-17.5) gm/dL Hct 29.7 L (39.0-53.0) % MCV 77.8 L (80.0-100.0) fL MCH 23.6 L (25.0-35.0) pg MCHC 30.3 L (31.0-37.0) g/dL RDW 17.8 H (11.5-15.5) % Chloride 96 L (98-107) mmol/L BUN 52 H (9-20) mg/dL Creatinine 2.00 H (0.66-1.25) mg/dL Glucose 111 H (74-99) mg/dL POC Glucose (mg/dL) 126 H (75-99) mg/dL Iron (65-175) ug/dL % Saturation (15.00-50.00) Microbiology - Last 24 Hours (Table) 07/12/20 10:00 Gram Stain - Preliminary Thoracic Fluid Body Fluid Culture - Preliminary
[2020-07-15 10:44] VITALS: BP 98/63; PULSE 65; TEMP 97.9
[2020-07-15] MEDS: METOPROLOL SUCCINATE (ER) 50 MG TAB.ER.24H PO SCH (10:45)
[2020-07-15] MEDS: TAMSULOSIN 0.4 MG CAP.ER.24H PO SCH (10:45)
[2020-07-15] MEDS ORDERED: SODIUM FERRIC GLUCONAT-SUCROSE 125 MG in SODIUM CHLORIDE 0.9% 100 ML IVPB ONE (11:30)
--- NOTE | 2020-07-15 13:28 | P.PN ---
Subjective Progress Note Date: 07/15/20 Principal diagnosis: Right-sided pleural effusion, status post right thoracentesis likely related to CHF This is a 74-year-old male patient known to us from previous hospital admissions was coming into the hospital because of worsening shortness of breath. The patient had come out of his bathroom and he said at the edge of the bed and he got quite dyspneic. He came into the ED and he was found to have further enlargement in the right-sided pleural effusion and for that reason a pulmonary consultation was requested. The patient is known to have congestion heart failure with an ejection fraction of 20-25%. The patient is also known to have chronic better pleural effusion. His echocardiogram at shown an ejection fraction of 20-25% and the patient has mild to moderate MR. He is known to have CAD, chronic stage IV kidney disease, hypertension and hyperlipidemia and previous history of alcoholism. He has undergone previous successful stenting of the LAD. He was in the hospital approximately a month ago and after being treated he was released to [facility] on the [place] for further rehabilitation. The patient is quite debilitated. He has a mild case of COPD. He has chronic urinary retention any on the lower self-catheterization. During this current admission, his troponins were 0.02 0.04885 RESPECTIVELY. ProBNP level was 19,200. White cell count is at 9.1 with a potassium level of 4.7. BUN is 45 with a creatinine of 2.19. On 07/13/2020, the patient is calm and comfortable. Underwent thoracentesis yesterday for a total of 1.5 L of fluid was aspirated from the right lung and the fluid was a transudate. This was expected as the patient has CHF. No complication. No pneumothorax. No respiratory distress. It was noted the patient is running a lower blood pressure. The patient is going to be started back on midodrine.. He remains on Lasix and the patient is a 40 mg IV push Lasix every 12 hours. He is on metoprolol 50 mg by mouth daily. He is on Lipitor. He has no respiratory distress. IV Solu Medrol be discontinued. On 07/14/2020 patient seen in follow-up on selective care unit, he is resting comfortably in bed, he states his breathing is comfortable, he is currently on 3 L of oxygen his pulse ox 95%, blood pressure is slightly low side, 88/55 this morning, with a mean of 66, afebrile, no complaints of chest pain, no wheezing, lung sounds reveal diminished breath sounds at the bases, no significant rhonchi, no cough or congestion. Patient had right-sided thoracentesis on 07/12/2020 would removal of 1.7 L of pleural fluid, cytology still pending, cultures are pending, reveal no growth thus far, pleural fluid analysis revealed transudative fluid. Patient continues on Midrin 2-1/2 mg 3 times daily, he is on daily dose of oral Lasix, cardiology is following. On 07/15/2020 patient seen in follow-up on selective care unit. He is awake and alert, in no acute distress, he states his breathing is much improved, he is cur rently on 3 L of oxygen pulse ox 98%, vital signs are stable, blood pressure today is 98/63, his had no fever or chills, no combined the chest pain, no cough or congestion. he continues on Lasix, he has been transitioned to oral Lasix, he is in -1.4 L fluid balance. his pleural fluid cytology is still pending, but pleural fluid analysis revealed transudate of fluid consistent with his history of chronic congestive heart failure. Objective - Vital Signs Vital signs: Vital Signs Temp 97.9 F 07/15/20 10:43 Pulse 65 07/15/20 10:43 Resp 18 07/15/20 11:06 BP 98/63 07/15/20 10:43 Pulse Ox 98 07/15/20 10:43 Intake & Output 07/14/20 07/15/20 07/15/20 18:59 06:59 18:59 Intake Total 850 240 Output Total 550 1760 Balance 300 -1760 240 Weight 74.1 kg Intake: Oral 850 240 Output: Urine 550 1360 Stool 400 Other: Voiding Method Bedside Commode Bedside Commode Bedside Commode Self-Catheterization Self-Catheterization Self-Catheterization # Voids 1 # Bowel Movements 2 1 - Exam GENERAL EXAM: Alert, very pleasant, 74-year-old white male on 3 L of oxygen with a pulse ox of 95% comfortable in no apparent distress. HEAD: Normocephalic/atraumatic. EYES: Normal reaction of pupils, equal size. Conjunctiva pink, sclera white. NOSE: Clear with pink turbinates. THROAT: No erythema or exudates. NECK: No masses, no JVD, no thyroid enlargement, no adenopathy. CHEST: No chest wall deformity. Symmetrical expansion. LUNGS: Equal air entry with no crackles, wheeze, rhonchi or dullness. CVS: Regular rate and rhythm, normal S1 and S2, no gallops, no murmurs, no rubs ABDOMEN: Soft, nontender. No hepatosplenomegaly, normal bowel sounds, no guarding or rigidity. EXTREMITIES: No clubbing, no edema, no cyanosis, 2+ pulses and upper and lower extremities. MUSCULOSKELETAL: Muscle strength and tone normal. SPINE: No scoliosis or deformity SKIN: No rashes CENTRAL NERVOUS SYSTEM: Alert and oriented -3. No focal deficits, tone is normal in all 4 extremities. PSYCHIATRIC: Alert and oriented -3. Appropriate affect. Intact judgment and insight. - Labs CBC & Chem 7: 07/15/20 07:14 07/15/20 07:14 Labs: Abnormal Lab Results - Last 24 Hours (Table) 07/14/20 07/14/20 07/14/20 Range/Units 06:45 16:49 20:15 RBC (4.30-5.90) m/uL Hgb (13.0-17.5) gm/dL Hct (39.0-53.0) % MCV (80.0-100.0) fL MCH (25.0-35.0) pg MCHC (31.0-37.0) g/dL RDW (11.5-15.5) % Chloride (98-107) mmol/L BUN (9-20) mg/dL Creatinine (0.66-1.25) mg/dL Glucose (74-99) mg/dL POC Glucose (mg/dL) 120 H 126 H (75-99) mg/dL Iron 10 L (65-175) ug/dL % Saturation 2.27 L (15.00-50.00) 07/15/20 07/15/20 Range/Units 07:14 07:14 RBC 3.81 L (4.30-5.90) m/uL Hgb 9.0 L (13.0-17.5) gm/dL Hct 29.7 L (39.0-53.0) % MCV 77.8 L (80.0-100.0) fL MCH 23.6 L (25.0-35.0) pg MCHC 30.3 L (31.0-37.0) g/dL RDW 17.8 H (11.5-15.5) % Chloride 96 L (98-107) mmol/L BUN 52 H (9-20) mg/dL Creatinine 2.00 H (0.66-1.25) mg/dL Glucose 111 H (74-99) mg/dL POC Glucose (mg/dL) (75-99) mg/dL Iron (65-175) ug/dL % Saturation (15.00-50.00) Microbiology - Last 24 Hours (Table) 07/12/20 10:00 Gram Stain - Preliminary Thoracic Fluid Body Fluid Culture - Preliminary Assessment and Plan Plan: Assessment: 1 right-sided pleural effusion with interval increase in the size of the pleural effusion on the right with a small effusion on the left and the patient will benefit from a thoracentesis for diagnostic and therapeutic purposes. This is most likely CHF-related pleural effusion. The patient underwent thoracentesis yesterday with the evacuation of 1.5 L of pleural fluid that was transudate consistent with CHF. Fluid cytology still pending for now. 2 chronic kidney disease. Baseline renal function is consistent with stage IV kidney disease/failure, creatinine stable at 2.0. 3 CHF with an ejection fraction of 20-25% secondary pulmonary hypertension 4 coronary artery disease with extensive multivessel disease with previous stenting of the LAD. The patient was investigated and declined for bypass surgery back in 2016 due to comorbidities. 5 chronic atrial fibrillation, not on anticoagulants 6 COPD, currently mild and inactive and stable. 7 chronic urinary retention 8 BPH and chronic obstructive uropathy. The patient performs self- catheterization. Patient also has chronic kidney disease stage 3-4 disease 9 degenerative disc disease involving the lumbar spine 10 chronic cerebral atrophy and along with a component of dementia 11 hyperlipidemia 12 hypertension 13 history of recurrent falls and gait dysfunction secondary to comorbidities 14 chronic microcytic anemia Plan: Patient is doing well, remains on diuretics, he is in negative fluid balance, he his breathing has significantly improved, his pleural fluid revealed transudative fluid consistent with a history of chronic CHF. He has been transitioned to oral Lasix, his vital signs been stable, from pulmonary perspective patient can be considered for discharge home once cleared by cardiology. I performed a history & physical examination of the patient and discussed their management with my nurse practitioner, Brittany Hester. I reviewed the nurse practitioner's note and agree with the documented findings and plan of care. L gabi sounds are positive for diminished breath sounds. The findings and the impression was discussed with the patient. I attest to the documentation by the nurse practitioner. Time with Patient: Less than 30
--- NOTE | 2020-07-15 22:14 | P.DS ---
Providers Date of admission: 07/11/20 21:23 Attending physician: Ramone Campbell Consults: 07/11/20 21:23 Consult Physician Routine Consulting Provider: Stephania Dill Consult Reason/Comments: copd Do you want consulting provider notified?: Yes Consult Physician Routine Consulting Provider: Mark Hearn Consult Reason/Comments: chf Do you want consulting provider notified?: Yes 07/15/20 09:43 Consult Physician Urgent Consulting Provider: Ryan Cintron Consult Reason/Comments: iron def anemia Do you want consulting provider notified?: Yes Primary care physician: Dannie Urbina [place] Hospital Course: please note this is not a discharge summary as pt signed himself out by leaving AMA -Acute on chronic systolic CHF with severely low ejection fraction 20-25% associated with bilateral pleural effusions , patient is getting close to end- stage heart failure -right pleural effusion status post right thoracocentesis -recent history of non-STEMI,and history of coronary artery disease -Bicytopenia with leukopenia and anemia, improved city councilman to discharge. Workup showed iron deficiency anemia, pt did not want to wait GI evaluation and left AMA -Low normal blood pressure on medial drain. Asymptomatic -Patient has multiple hospitalization, this is the 6th hospitalization of this year -Acute renal failure: Secondary to cardiorenal syndrome continue with Demadex -Generalized weakness can be related to acute renal failure, patient although does have chronic weakness -Urinary retention , self catheterize WITH straight cath 3-4 times a day , which could be done by the patient himself upon his request. -Chronic kidney disease stage III: Probably secondary to hypertensive nephrosclerosis -COPD without any significant exacerbation -Low back pain, musculoskeletal -Non-adherence to treatment -Severe pulmonary hypertension -hypertension -hyperlipidemia -Atrial fibrillation proximal presently rate controlled , not on anti- coagulation for patient is high-risk of bleeding -Anemia of chronic kidney disease -Coronary artery disease, status post previous stenting Hospital course: This is a pleasant 74 years old male with multiple medical problems including coronary artery disease status post previous stent of the LAD, patient has declined bypass surgery in the past, chest pain, severe systolic heart failure with ejection fraction 20-25%, COPD, GERD, hyperlipidemia, hypertension, liver disease, osteoarthritis, chronic kidney disease stage 3, pulmonary hypertension, chronic atrial fibrillation, chronic anemia, COPD, chronic obstructive uropathy secondary to BPH and patient self catheterizes at home, generalized weakness and frequent falls, history of noncompliance and he signed himself AMA last month. patient presents this time because of dyspnea, with occasional cough and no chest pain patient was tachypneic and slightly hypoxic on emergency room, he was a 6 L oxygen saturating 100%. chest x-ray showing right pleural effusion and right lower lobe infiltrate. Patient underwent right thoracocentesis by pulmonary service which showed transudate effusion which coincides with his CHF. Patient was treated with IV Lasix and switch to oral Lasix. And his breathing i s improved and currently his breathing quietly. He is saturating 98% on 3 L oxygen via nasal cannula patient hemoglobin dropped from 11 down to 9.1 and 7.6, but improved prior to discharge. Workup showed iron deficiency anemia. GI consult was obtained:nurse practioner saw him today , and they were going to see him today and if they clear him then he might be considered for discharge but he did not want to wait and left AMA, as per bed side family medicine physician were aware and they were going to pick him up . pt signed AMA last time as well patient also has chronic kidney disease and his creatinine remained stable at 2.0 upon discharge. patient eventually kept improving, his back to his baseline and patient was been asking to be discharged for the last 2-3 days but we kept him for hemoglobin monitoring and anemia workup. On the day of leaving ama, patient is with no chest pain or dyspnea, no weakness or numbness, no abdominal pain or nausea vomiting. No change in urine or bowel habits. No fever patient refuses physical therapy evaluation, he refuses going to rehab. based upon my evaluation pt has capacity to make medical decision for himself physical exam prior to leaving ama Gen: patient is a AAOx3, no distress. Generally weak CVS: S1-S2, RRR, no murmur Lungs: B/L CTA, no wheezing Abdomen: soft, no distention, no tenderness, positive bowel sounds Extremity: no leg edema or induration Time spent more than 35 minutes Patient Condition at Discharge: Serious Plan - Discharge Summary Discharge Rx Participant: Yes New Discharge Prescriptions: New Aspirin 81 mg PO DAILY chew Discontinued Ticagrelor [Brilinta] 90 mg PO BID No Action Omeprazole [PriLOSEC] 20 mg PO BID Cetirizine HCl [Zyrtec] 10 mg PO DAILY Atorvastatin Calcium [Lipitor] 80 mg PO HS Tamsulosin [Flomax] 0.4 mg PO DAILY Magnesium Oxide [Mag-Ox] 400 mg PO BID Metoprolol Succinate (ER) [Toprol XL] 50 mg PO DAILY Potassium Chloride ER [K-Dur 10] 10 meq PO BID Torsemide [Demadex] 20 mg PO DAILY Ipratropium-Albuterol Nebulize [Duoneb 0.5 mg-3 mg/3 ml Soln] 3 ml INHALATION RT-TID ml ALPRAZolam [Xanax] 0.5 mg PO BID PRN 2 Days #4 tab PRN Reason: Anxiety Furosemide [Lasix] 40 mg PO DAILY Acetaminophen Tab [Tylenol] 650 mg PO Q4HR PRN PRN Reason: Fever And/ Or Pain Midodrine HCl [ProAmantine] 2.5 mg PO TID Methyl Salicylate/Menthol [Salonpas Patch] 1 patch TOPICAL DAILY PRN PRN Reason: Pain Melatonin 3 mg PO HS Bismuth Subsalicylate [Pepto-Bismol] 524 mg PO Q4H PRN PRN Reason: Gi Upset Discharge Medication List Omeprazole [PriLOSEC] 20 mg PO BID 07/19/16 [History] Atorvastatin Calcium [Lipitor] 80 mg PO HS 10/30/19 [History] Cetirizine HCl [Zyrtec] 10 mg PO DAILY 10/30/19 [History] Tamsulosin [Flomax] 0.4 mg PO DAILY 01/27/20 [History] Magnesium Oxide [Mag-Ox] 400 mg PO BID 03/25/20 [History] Metoprolol Succinate (ER) [Toprol XL] 50 mg PO DAILY 06/15/20 [History] Potassium Chloride ER [K-Dur 10] 10 meq PO BID 06/30/20 [History] Torsemide [Demadex] 20 mg PO DAILY 06/30/20 [History] ALPRAZolam [Xanax] 0.5 mg PO BID PRN 2 Days #4 tab 07/02/20 [Rx] Ipratropium-Albuterol Nebulize [Duoneb 0.5 mg-3 mg/3 ml Soln] 3 ml INHALATION RT-TID ml 07/02/20 [Rx] Acetaminophen Tab [Tylenol] 650 mg PO Q4HR PRN 07/11/20 [History] Bismuth Subsalicylate [Pepto-Bismol] 524 mg PO Q4H PRN 07/11/20 [History] Furosemide [Lasix] 40 mg PO DAILY 07/11/20 [History] Melatonin 3 mg PO HS 07/11/20 [History] Methyl Salicylate/Menthol [Salonpas Patch] 1 patch TOPICAL DAILY PRN 07/11/20 [History] Midodrine HCl [ProAmantine] 2.5 mg PO TID 07/11/20 [History] Aspirin 81 mg PO DAILY chew 07/15/20 [Rx] Follow up Appointment(s)/Referral(s): Chapin Hou MD [STAFF PHYSICIAN] - 08/01/20 8:45 am () Carlitos Pandey MD [Primary Care Provider] - 1-2 days Adeel Perez DO [Doctor of Osteopathic Medicine] - 2 Weeks (medical education specialist) [facility], [NON-STAFF] - Ryan Cintron MD [STAFF PHYSICIAN] - 2 Weeks (np) Activity/Diet/Wound Care/Special Instructions: heart healthy diet Activity is limited till you see your doctor Discharge Disposition: Left Against Medical Advice
== END 2020-07-15 15:26 | disposition left against medical advice (07) | DRG 291 ==
LOC: EC 20:17 → 3SCARD 21:23
PROVIDERS: ADMIT Hospitalist; ATTEND Hospitalist
PROC: 0W993ZX Drainage of Right Pleural Cavity, Percutaneous Approach, Diagnostic (ICD-10-PCS; principal; 2020-07-12)
DX: I13.0 Hypertensive heart and chronic kidney disease with heart failure and stage 1 through stage 4 chronic kidney disease, or unspecified chronic kidney disease (principal); I50.23 Acute on chronic systolic (congestive) heart failure; J96.00 Acute respiratory failure, unspecified whether with hypoxia or hypercapnia; I48.20 Chronic atrial fibrillation, unspecified; J44.1 Chronic obstructive pulmonary disease with (acute) exacerbation; J91.8 Pleural effusion in other conditions classified elsewhere; N13.8 Other obstructive and reflux uropathy; N17.9 Acute kidney failure, unspecified; N18.4 Chronic kidney disease, stage 4 (severe); D50.9 Iron deficiency anemia, unspecified; D63.1 Anemia in chronic kidney disease; D72.819 Decreased white blood cell count, unspecified; E78.5 Hyperlipidemia, unspecified; F03.90 Unspecified dementia, unspecified severity, without behavioral disturbance, psychotic disturbance, mood disturbance, and anxiety; F17.210 Nicotine dependence, cigarettes, uncomplicated; F41.9 Anxiety disorder, unspecified; I25.10 Atherosclerotic heart disease of native coronary artery without angina pectoris; I25.2 Old myocardial infarction; I27.29 Other secondary pulmonary hypertension; I34.0 Nonrheumatic mitral (valve) insufficiency; I48.0 Paroxysmal atrial fibrillation; K21.9 Gastro-esophageal reflux disease without esophagitis; M51.36 Other intervertebral disc degeneration, lumbar region; Z66 Do not resuscitate; N40.1 Benign prostatic hyperplasia with lower urinary tract symptoms; R33.8 Other retention of urine; Z91.81 History of falling; Z91.19 Patient's noncompliance with other medical treatment and regimen; Z95.5 Presence of coronary angioplasty implant and graft; Z79.02 Long term (current) use of antithrombotics/antiplatelets; Z79.899 Other long term (current) drug therapy; Z82.49 Family history of ischemic heart disease and other diseases of the circulatory system; Z82.3 Family history of stroke; F10.11 Alcohol abuse, in remission; R26.9 Unspecified abnormalities of gait and mobility; Z87.01 Personal history of pneumonia (recurrent)
CPT/HCPCS: 36415; 71045; 80048; 80053; 82607; 82728; 82746; 82945; 83540; 83550; 83615; 83735; 83880; 84157; 84484; 85025; 85027; 85610; 85730; 87070; 87205; 88108; 88305; 89050; 93005; 94640; 94645; 94760; 96374; 99291